=== PATIENT | female | born 1975 | race Caucasian/White ===

== ENCOUNTER 2020-11-15 12:39 | Emergency (ER) | payer BC, SELFPAY ==
[2020-11-15 12:39] VITALS: BP 130/69; PULSE 72; RESP 15; TEMP 35.6; BMI 32.8
--- NOTE | 2020-11-15 12:42 | RAD_ITS ---
STUDY: X-RAY - RIGHT HAND, ATTENTION SECOND FINGER REASON FOR EXAM: Female, 45 years old. trauma -- attn: index finger TECHNIQUE: 2 view(s) of the finger were obtained. COMPARISON: None. FINDINGS: Normal metacarpal head. Normal metacarpophalangeal joint. Normal proximal phalanx. Normal middle phalanx. Normal distal phalanx. Normal proximal interphalangeal joint. Normal distal interphalangeal joint. RAD/Finger(s) Min 2 Views IMPRESSION: Normal x-ray examination of the finger. Electronically Signed: Gordy Wiley MD at 13:25 EDT Tel , Service support ,
--- NOTE | 2020-11-15 13:16 | EX.ED.UPPERE ---
HPI History of Present Illness Chief Complaint: Laceration Informant: patient Occured/Mechanism Mechanism/Context: Yes blunt trauma Comment: Accidentally caught by edge of car door as it was closing, sustained a laceration to right index finger Onset/Context/Timing Onset: Today Context: Sudden Onset Timing: Continuous Quality of Pain: - (Sore) Location: Right index finger Current Severity: Mild Maximum Severity: Moderate Worsened by: Moving, palpation Relieved by: Remaining still Associated Symptoms Associated Symptoms: Negative for Parasthesia, Weakness and Loss of Funtion Narrative Narrative: [id number]. Laceration to right index finger and pain to the finger. Tetanus Immunization: >10 years PFSH PFSH no medical history Home Medications oxycodone-acetaminophen 1 - 2 tab PO Q4H PRN PRN #20 tab 10/16/15 [Rx Last Taken Unknown] Allergy/AdvReac Type Severity Reaction Status Date / Time Penicillins Allergy Swelling Verified 10/16/15 21:03 Social History Smoking Status: Never smoker ROS ROS ED Constitutional Constitutional ED: Denies chills or fever(s) Musculoskeletal Musculoskeletal: Reports extremity pain; Denies neck pain Integumentary Reports as per HPI and laceration; Denies Abrasions or rash Neurologic Neurologic: Denies paresthesias or weakness EXAM Physical Exam Const Vital Signs: 11/15/20 12:39 Temperature 96.0 F L Temperature Source Temporal Pulse Rate 72 Respiratory Rate 15 Blood Pressure 130/69 H Blood Pressure Mean 89 Positive well nourished and well developed General Appearance ED: well developed and NAD Neck full ROM and supple Back/Spine normal ROM and normal to inspection Extremity Extremity Narrative: Laceration to the volar aspect of the distal right index finger. FDS, FDP intact, limited range of motion at the DIPJ due to pain. Tender there and the distal phalanx. The subungual hematoma/nail injury. No other injuries. Neuro oriented x3, no focal motor deficits and no sensory deficits noted Sensorium / Orientation: alert Psych mental status grossly normal and thought process normal Skin Skin Narrative: Subcutaneous laceration 2 cm curvilinear volar right index finger that is more to the radial aspect. Clean without contamination or active bleeding. Rashes: no rashes MDM MDM MDM Narrative Medical decision making narrative: On my interpretation x-rays of the right hand are negative for any acute fracture or radiopaque foreign body. 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 She was amenable to that. This was done and she was given appropriate discharge instructions regarding bandaging and follow-up. Of note, the patient is due for a tetanus update. This is not a high risk tetanus wound, but she opted to not get the update today although she understands she needs it since it has been 10-20 years. She will follow-up with her doctor regarding this. Procedures Lacerations Right index finger: Length: 2 cm Depth: Sub Q Shape: Linear (Curvilinear) Prep: Sterile Conditions and Chlorhexadine Laceration repair: Lidocaine (1% plain after topical let), Local (1.5 cc) and Skin sutures Number of Sutures/Kimberlyn: 4 Suture Information: Ethilon, Simple and 5-0 Discharge Plan Triage Chief Complaint: Laceration ED Provider: Barry Guillen Dx/Rx/DC Orders Clinical Impression: Laceration of right index finger Instructions: ED Laceration, Hand: All Closures Prescriptions: No Action oxycodone-acetaminophen 1 TABLET tablet 1 - 2 tab PO Q4H PRN PRN (Reason: Pain) Qty: 20 RF: 0 Primary Care Provider: Rayo Caceres Referrals: Rayo Caceres MD [Primary Care Provider] - 7 Days for suture removal (Or ER/urgent care, 7-10 days for wound reevaluation and suture removal) Disposition Disposition: Home, self care
[2020-11-15] MEDS: Lidocaine/Epi/Tetracaine 50 ML 1 APPLIC TOPICAL (13:26)
[2020-11-15 14:50] VITALS: PULSE 89; RESP 18; O2SAT 97
[2020-11-15] MEDS: Lidocaine 1% (20 ml mdv) 20 ML Vial INFILT (14:50)
--- NOTE | 2020-11-15 14:52 | ED.RN ---
THIS NURSE REVIEWED D/C INSTRUCTIONS WITH PT. PT VERBALIZED UNDERSTANDING OF INSTRUCTIONS. PT DENIES FURTHER NEEDS OR QUESTIONS AT THIS TIME. PT AMBULATES FROM ROOM ON OWN WITHOUT ASSISTANCE FROM STAFF
== END 2020-11-15 14:52 | disposition home or self-care (01) ==
PROVIDERS: Emergency Provider Emergency Medicine; PCP Family Medicine
DX: S61.210A Laceration without foreign body of right index finger without damage to nail, initial encounter (principal); X58.XXXA Exposure to other specified factors, initial encounter
CPT/HCPCS: 12001; 73140; 99283

== ENCOUNTER 2021-06-14 21:26 | Emergency (ER) | payer BC, SELFPAY ==
[2021-06-14 21:26] VITALS: BP 157/103; PULSE 102; RESP 18; TEMP 36.6; O2SAT 100; BMI 34.4
--- NOTE | 2021-06-14 21:30 | EKG12_ITS ---
Test Reason : CP Blood Pressure : / mmHG Vent. Rate : 076 BPM Atrial Rate : 076 BPM P-R Int : 138 ms QRS Dur : 090 ms QT Int : 378 ms P-R-T Axes : 041 021 045 degrees QTc Int : 425 ms Normal sinus rhythm Normal ECG Confirmed by SUZANNE NAVAS, SEPIDEH ([id number]), graphic editor JHOANA GHOSH ([id number]) on 06/15/2021 11:29:17 AM Referred By: VISHAL HARRINGTON Confirmed By:SEPIDEH PALACIOS MD
[2021-06-14 21:56] LABS: Absolute Lymphocyte Count 3.79 X10^3/uL (0.83-4.51); Absolute Neutrophil Count 5.1 X10^3/uL (2.0-7.7); Basophil# 0.05 X10^3/uL; Basophil% 0.5 % (0-1); Eosinophil# 0.16 X10^3/uL; Eosinophils% 1.6 % (0-5); Hematocrit 40.9 % (37-47); Hemoglobin 13.8 g/dL (12.0-15.0); Lymphocyte # 3.79 X10^3/ul (0.83-4.51); Lymphocyte % 38.5 % (19-41); Mean Corp Hgb Conc 33.7 g/dL (32-36); Mean Corpuscular Hgb 29.8 pg (27.0-32.0); Mean Corpuscular Volume 88.3 fL (81-99); Monocyte# 0.75 X10^3/uL; Monocyte% 7.6 % (0-10); NRBC Flagged by Analyzer 0 % (0-5); Neutrophil # 5.07 X10^3/uL (2.7-7.7); Neutrophil % 51.6 % (47-70); Platelet Count 328 K/mm3 (150-450); RBC Distribution Width CV 11.9 % (11.6-14.6); RBC Distribution Width SD 38.2 fl (35.1-43.9); Red Blood Count 4.63 M/mm3 (4.2-5.4); White Blood Count 9.8 K/mm3 (4.4-11.0)
[2021-06-14 22:16] LABS: Anion Gap 6 (5-15); BUN 12 mg/dL (7-18); BUN/Creat Ratio 15.5 RATIO (10-20); Calcium,Total 9.1 mg/dL (8.5-10.1); Chloride 106 mmol/L (98-107); Creatinine, Serum 0.77 mg/dL (0.55-1.02); EST Glomerular Filtration Rate 85 mL/min (>60); Est Glom Filt Rate - Afr Amer 103 mL/min (>60); Estimated Creatinine Clearance 88.78 ml/min; Glucose 99 mg/dL (74-106); Potassium 4.1 mmol/L (3.5-5.1); Sodium Level 139 mmol/L (136-145); Troponin-I HS 5 pg/mL (3.0-54.0)
--- NOTE | 2021-06-14 22:40 | CT_ITS ---
STUDY: CTA CHEST REASON FOR EXAM: Female, 45 years old. Chest pain. Lump in left arm. An breast for 6 months. Burning chest pain with radiation left arm and shoulder for 2 days. RADIATION DOSAGE (If Supplied By Facility): CTDIvol = ( 13.61 ) mGy, DLP = ( 564.45 ) mGycm TECHNIQUE: The examination was performed with the intravenous administration of IV 100mL Isovue-370. Post-processing of the angiographic images was performed, with multiplanar reformation and 3D reconstruction. Individualized dose optimization techniques were used for this CT. COMPARISON: None. FINDINGS: Normal enhancement of the main pulmonary artery and right and left pulmonary arteries. Normal enhancement of the bilateral peripheral pulmonary arteries. There is no demonstrated pulmonary embolism. Normal thoracic aorta and visualized great vessels. There is no demonstrated aortic dissection. Normal heart and pericardium. Minimal coronary artery calcifications. There are calcified prevascular and left hilar lymphadenopathy. Normal visualized trachea and bronchi. The lungs are well expanded. Normal pulmonary parenchyma. Normal pleura. There is an enhancing left axillary lymph node measuring 2.4 x 1.7 x 1.4 cm. There is also a ill-defined 2.4 x 2.3 x 2.1 cm soft tissue mass in left breast. Smaller nodular density measuring 1 cm is seen in the upper medial right breast. Normal osseous structures. Normal visualized upper abdomen. CT/CTA Chest W/WO Contrast IMPRESSION: 1. Bilateral breast masses, left greater than right. There is associated left axillary lymphadenopathy. 2. No evidence of pulmonary embolism. 3. No aortic dissection or aneurysm. 4. No acute pulmonary disease. 5. Old granulomatous disease. Electronically Signed: Von Akhtar DO at 23:38 EST Tel [phone], Service support ,
--- NOTE | 2021-06-14 23:10 | RAD_ITS ---
STUDY: X-RAY CHEST REASON FOR EXAM: Female, 45 years old. S pain. TECHNIQUE: Single AP portable view of the chest. COMPARISON: CTA of the chest, 06/14/2020. FINDINGS: The lungs are clear and expanded. There is no demonstrated pleural abnormality. Normal size heart. Normal mediastinum and alice. Normal visualized pulmonary arteries. Normal visualized aortic arch and descending thoracic aorta. Normal visualized thoracic spine. Normal visualized ribs, clavicles, and shoulders. There is no demonstrated abnormality of the visualized soft tissue structures of the upper abdomen. RAD/Chest 1 View (Portable) IMPRESSION: No acute cardiopulmonary disease. Electronically Signed: Von Akhtar DO at 23:53 EST Tel [phone], Service support ,
[2021-06-14] MEDS: HYDROcodone Bitartrate/Apap 5/325 Tablet PO (23:53)
[2021-06-14] MEDS: 0.9% Normal Saline 1,000 ML 999 ML IV (23:53)
--- NOTE | 2021-06-15 00:10 | EDS_ITS ---
HPI History of Present Illness Chief Complaint: Chest Pain Narrative Narrative: Patient is a 45-year-old female who states that she noticed a small lump in her left breast a few months ago. She states that life has been very busy with her having thyroid cancer recently and she has not had time to have the mass evaluated. She states that over the past few weeks she has noticed that the lump is increased in size and now she is also noticed some swelling in her left armpit region. She does report a family history of breast cancer. She states that the areas become more painful as well over the past few weeks. She denies any discoloration to the skin or nipple discharge but with the worsening pain and size of the lump comes in for evaluation [facility] Medical History Axillary adenopathy Breast mass Chest wall pain Home Medications multivitamin 1 tab PO DAILY 06/14/21 [History Last Taken Unknown] hydrocodone-acetaminophen 1 tab PO Q6H PRN 3 Days #12 tab 06/15/21 [Rx Last Taken Unknown] Allergy/AdvReac Type Severity Reaction Status Date / Time Penicillins Allergy Swelling Verified 06/16/21 09:53 Family History (Updated 06/16/21 @ 10:08 by Cecelia Lance) Grandmother Breast cancer Diabetes Mother Hypertension Grandfather Diabetes Other Breast mass Surgical History History of cholecystectomy Social History (Updated 06/16/21 @ 10:09 by Cecelia Lance) Smoking Status: Never smoker alcohol intake: never ROS ROS ED Constitutional Constitutional ED: Denies chills or fever(s) ENT ENT ED: Denies sore throat Cardiovascular Cardiovascular: Reports chest pain; Denies palpitations or racing heartbeat Respiratory/Chest Respiratory/Chest: Denies cough or dyspnea Gastrointestinal Gastrointestinal: Denies abdominal pain, diarrhea, nausea or vomiting Genitourinary Genitourinary ED: Denies dysuria Musculoskeletal Musculoskeletal: Denies myalgias Integumentary Denies rash Neurologic Neurologic: Denies headache(s) Hematologic/Lymphatic Hematologic/Lymphatic: Denies easy bleeding or easy bruising EXAM Physical Exam Const Vital Signs: 06/14/21 21:26 06/14/21 23:56 Temperature 98 F Temperature Source Temporal Pulse Rate 102 H Respiratory Rate 18 Respiratory Effort Normal Respiratory Pattern Normal Blood Pressure 157/103 H Blood Pressure Mean 121 Pulse Ox 100 Oxygen Delivery Method Room Air Positive well nourished and well developed General Appearance ED: well developed HEENT Reports moist mucous membranes Eyes PERRL and EOMs intact bilaterally Neck supple Chest Wall Chest Narrative: Patient has a 2 x 3 area of firmness to the upper midportion of the left breast. There is pain on palpation at the site but no overlying warmth or discoloration. No nipple discharge noted. Resp normal respiratory effort and clear to auscultation bilaterally Cardio regular rate and regular rhythm Rate: other Other Details: Radial pulses are plus 2 out of 4 bilaterally are equal and symmetric GI normal to inspection, nondistended, normoactive bowel sounds, non-tender, non- distended and no masses Auscultation: normoactive bowel sounds Palpation: soft Extremity normal to inspection Extremity Narrative: No asymmetric edema no pitting edema negative Homans' sign bilaterally. Patient does have soft tissue swelling in the left axilla consistent with lymphadenopathy Neuro oriented x3 and CN's II-XII intact bilaterally Sensorium / Orientation: alert Motor Exam: strength 5/5 throughout Psych mental status grossly normal Skin no rashes or lesions noted MDM MDM MDM Narrative Medical decision making narrative: Patient presented to the ER with chest pain but it was not cardiac in nature it was related to the breast mass. With the lymphadenopathy on the left this is most likely cancerous in nature especially with her family history of breast cancer. Therefore elected perform a CTA of the chest to get a better evaluation of the mass as well as rule out pulmonary embolus as the cause of her symptoms. Troponin was normal as well as EKG and CT revealed no PE or lung pathology but did note the left breast mass as well as the left axillar lymphadenopathy. There is also a small right breast mass noted. Based on these findings patient will need further evaluation with mammogram and most likely ultrasound-guided biopsy. However at this time with out changes to suggest CAD or PE there is no need for admission and she can be discharged Lab Data Attestation: I reviewed the patient's lab results. Labs: Laboratory Results - last 24 hr 06/14/21 06/14/21 21:40 21:40 WBC 9.8 RBC 4.63 Hgb 13.8 Hct 40.9 MCV 88.3 MCH 29.8 MCHC 33.7 RDW Std Deviation 38.2 RDW Coeff of Sarai 11.9 Plt Count 328 MPV 9.0 Immature Gran % (Auto) 0.200 Neut % (Auto) 51.6 Lymph % (Auto) 38.5 Grady % (Auto) 7.6 Eos % (Auto) 1.6 Baso % (Auto) 0.5 Absolute Neuts (auto) 5.1 Absolute Lymphs (auto) 3.79 Nucleated RBC % 0 Sodium 139 Potassium 4.1 Chloride 106 Carbon Dioxide 27.0 Anion Gap 6 BUN 12 Creatinine 0.77 Estim Creat Clear Calc 88.78 Est GFR (MDRD) Af Amer 103 Est GFR (MDRD) Non-Af 85 BUN/Creatinine Ratio 15.5 Glucose 99 Calcium 9.1 Troponin I High Sens 5 Radiography Diagnostic Testing: Clinical Impression(s) from Imaging Studies Chest CTA 06/14/21 22:40 IMPRESSION: 1. Bilateral breast masses, left greater than right. There is associated left axillary lymphadenopathy. 2. No evidence of pulmonary embolism. 3. No aortic dissection or aneurysm. 4. No acute pulmonary disease. 5. Old granulomatous disease. Electronically Signed: Von Akhtar DO at 23:38 EST Tel [phone], Service support , Chest X-Ray 06/14/21 23:10 IMPRESSION: No acute cardiopulmonary disease. Electronically Signed: Von Akhtar DO at 23:53 EST Tel [phone], Service support , Discharge Plan Triage Chief Complaint: Chest Pain ED Provider: Lauri Boucher Dx/Rx/DC Orders Clinical Impression: Breast mass, Axillary adenopathy, Chest wall pain Instructions: ED Chest Pain, Noncardiac, ED Breast Lump, Uncertain Cause Prescriptions: New hydrocodone-acetaminophen 5-325 mg tablet 1 tab PO Q6H PRN (Reason: pain) 3 Days Qty: 12 RF: 0 No Action multivitamin Tablet 1 tab PO DAILY RF: 0 Stand Alone Forms: ED Work / School Excuse Primary Care Provider: Rayo Caceres Referrals: Rayo Caceres MD [Primary Care Provider] - Disposition Disposition: Home, Self Care Discharge Date/Time: 06/15/21 00:41
[2021-06-15 00:30] VITALS: BP 113/76; PULSE 74; RESP 14; O2SAT 98
== END 2021-06-15 00:41 | disposition home or self-care (01) ==
PROVIDERS: Emergency Provider Emergency Medicine; PCP Family Medicine; Visit Provider Emergency Medicine
DX: N63.10 Unspecified lump in the right breast, unspecified quadrant (principal); N63.20 Unspecified lump in the left breast, unspecified quadrant; R07.89 Other chest pain; Z80.3 Family history of malignant neoplasm of breast
CPT/HCPCS: 71045; 71275; 80048; 84484; 85025; 93005; 99284; J7030; A4216

== ENCOUNTER 2021-06-15 10:02 | Outpatient (CLI) | payer BC, SELFPAY ==
--- NOTE | 2021-06-15 10:10 | BI_ITS ---
MAMMOGRAPHY - BILATERAL DIAGNOSTIC REASON FOR EXAM: Female, 45 years old. Bilateral breast nodules. Left axillary pain. PERTINENT HISTORY: Grandmother with breast cancer. TECHNIQUE: Digital bilateral breast stu (3D mammographic acquisition) in the CC and MLO projections. 2-D mediolateral oblique (MLO) and craniocaudad (CC) views of both breasts were obtained. CAD: Full Field Digital Mammography with Computer Added Detection was performed. COMPARISON: None. Baseline examination. FINDINGS: Breast Composition: The breasts are heterogeneously dense, which may obscure small masses. There is a 2 cm x 2.3 cm irregular mass in the anterior upper central portion of the left breast. Biopsy is strongly recommended. There is also evidence of a 1.2 cm x 1 cm irregular nodule in the anterior subareolar region of the left breast. Biopsy recommended. No other significant abnormalities are identified. BI/DIAG MAMM W/CAD, BILAT IMPRESSION: Bilateral breast masses as described. Correlation with ultrasound is recommended. Correlation with ultrasound of the left axillary region is recommended as well. ASSESSMENT CATEGORY: BIRADS Category 0: Incomplete. Need additional imaging evaluation. A letter regarding these results will be sent to the patient by the facility within 30 days. Approximately 10% of breast cancers are not detected by mammography. A normal mammogram should not delay biopsy of a clinically suspicious abnormality. Electronically Signed: Leonard Morse MD at 11:12 EST , Service support ,
== END 2021-06-15 23:59 | disposition short-term general hospital (02) ==
PROVIDERS: PCP Family Medicine; Referring Provider Nurse Practitioner Family; Visit Provider Nurse Practitioner Women's Health
DX: N63.20 Unspecified lump in the left breast, unspecified quadrant (principal)
CPT/HCPCS: 77062; 77066; G0279

== ENCOUNTER 2021-06-16 07:49 | Outpatient (CLI) | payer BC, SELFPAY ==
--- NOTE | 2021-06-16 | IMM_PTH ---
PATIENT: SARAH RYAN LOC: PATRIC U#:[id number] AGE/SX: 45/F ROOM: RE06/16/[address]: TRUNG Estrella : 1975 BED: DIS: 06/16/2021 SPEC #: [id number] RECD: 06/17/21 14:21 STATUS: JACQUES REBetty #: [id number] DEANNE: 06/16/21 00:[address]: Jadiel Mendez DEPT: IMMUNOHISTOCHEMISTRY RECD BY: Yvonne Cline ENTERED: 06/17/21 14:24 SP TYPE: IMMUNO OTHR DR: TRUNG Coleman Tissues: A - Right breast, NOS C - Left breast, NOS D - Axillary lymph node, NOS Procedures: E-CAD (initial) CALPONIN-1 (add) CK5-6 (add) CK8 (add) ER (add) HER2 EMY (add) KI-67 (add) MAMM (add) P53 (add) IL (add) GATA3 (add) P40 (add) [facility] [address] [address] SPECIMEN INFORMATION: Tissue Source: A ? Right breast 2 o?clock, +5 cm, C ? Left breast, D ? Left axillary lymph node Clinical Info: Bilateral breast masses, left axillary lymph node enlarged Specimen Number: [id number] A, C & D CPT code: 09823 x3, 47417 x15, 59962 x6 METHODOLOGY: Deparaffinized sections of prefer/formalin-fixed tissue or PAP/DQ stained slides are incubated with monoclonal/polyclonal antibodies/oligonucleotide probes. Localization is made via biotin free immunoperoxidase method. Appropriate controls are performed and reacted as expected. Results on target cell population are indicated in the following table: RESULTS: ANTIBODY / CLONE RESULT Block A E-Cad (ECH-6) positive CK8 (93ccnlY15) positive Calponin-1 (JY671S) negative CK5-6 (D5 & 1684) negative P40 (BC28) negative P53 (DO-7) positive, a few cells (<10%) Ki-67 (30-9) positive, ~27% MORPHOMETRIC ANALYSIS ER (clone 6F11) >95%, strong intensity IL (clone 16/1E2) >95%, strong intensity Her-2Neu (clone CB11) 0 Block C E-Cad (ECH-6) positive CK8 (65alscP93) positive Calponin-1 (IG742Z) negative * CK5-6 (D5 & 1684) negative * P40 (BC28) negative * P53 (DO-7) negative Ki-67 (30-9) positive, low (<10%) *?Positive in the area of ductal carcinoma in situ. MORPHOMETRIC ANALYSIS ER (clone 6F11) >95%, moderate intensity IL (clone 16/1E2) 25%, low to moderate intensity Her-2Neu (clone CB11) 0 Block D CK8 (38xjhzT35) positive E-Cad (ECH-6) positive Mammaglobin (31A5) positive, focal GATA3 (L50-823) positive The prognostic test for HER2 is performed on formalin-fixed paraffin embedded tissue. A 3+ (positive) staining pattern is defined as intense, homogeneous, complete, circumferential membranous staining in >10% of contiguous tumor cells. A similar weak (2+) staining pattern is interpreted as equivocal. MARTINA follow-up testing is recommended for all equivocal cases. Positivity/negativity for ER/IL is reported if > or < 1% of the tumor cells are immuno- reactive, respectively. The ASCO/CAP criteria is used for scoring. Reference: Journal of Clinical Oncology, 2013; 31:4982-5920 & 2010; 16:7726-6660. Duration of fixation: 9.5 Hrs; Sample Adequate: Yes. These assays have not been validated on decalcified tissues. Results should be interpreted with caution given the likelihood of false negativity on decalcified specimens. These tests were developed and their performance characteristics determined by [facility]. They may not have been cleared or approved by the U.S. Food and Drug Administration. The FDA has determined that such clearance or approval is not necessary. The above immunohistochemical/dualISH markers are ordered and reviewed by the Pathologist. INTERPRETATION: A. Right breast 2 o?clock, +5 cm, biopsy: Invasive ductal carcinoma, nuclear grade 1. Positive for estrogen receptors (favorable prognostic indicator). Positive for progesterone receptors (favorable prognostic indicator). Negative for overexpression of [id number]. C. Left breast, biopsy: Invasive ductal carcinoma, nuclear grade 2. Ductal carcinoma in situ. Positive for estrogen receptors (favorable prognostic indicator). Positive for progesterone receptors (favorable prognostic indicator). Negative for overexpression of AIF6dwp. D. Left axillary lymph node, biopsy: Metastatic carcinoma consistent with breast primary. SJ:mikhail 06/18/2021
--- NOTE | 2021-06-16 07:51 | US_ITS ---
STUDY: ULTRASOUND BREAST - RIGHT REASON FOR EXAM: Female, 45 years old. Abnormal screening mammogram. TECHNIQUE: Axial and longitudinal images of the RIGHT breast were performed with a high resolution ultrasound transducer. # OF IMAGES: 87 COMPARISON: Comparison is made with prior mammogram dated 06/15/2021. FINDINGS: RIGHT Breast: There is a 7 mm x 7 mm x 7 mm ill-defined hypoechoic nodule with shadowing and increased blood flow at the 2 o''clock position of the breast at 5 sinuses on the nipple. A similar-appearing nodular density measuring 4 mm x 4 mm x 4 mm is also seen at the 1 o''clock position of the breast at 3 cm from nipple. Biopsy is recommended. IMPRESSION: There are 2 adjacent hypoechoic irregular solid nodules at the 1 and 2 o''clock position of the breast as described. Biopsy recommended. ASSESSMENT CATEGORY: BIRADS Category 4: Suspicious - Biopsy Should Be Considered. A letter regarding these results will be sent to the patient by the facility within 30 days. Electronically Signed: Leonard Morse MD at 13:06 EST , Service support , STUDY: ULTRASOUND BREAST - LEFT REASON FOR EXAM: Female, 45 years old. Abnormal screening mammogram. TECHNIQUE: Axial and longitudinal images of the LEFT breast were performed with a high resolution ultrasound transducer. # OF IMAGES: 87 COMPARISON: Comparison is made with prior mammogram dated 06/15/2021. FINDINGS: LEFT Breast: There is a 2.7 cm x 3.5 cm x 2.3 cm irregular hypoechoic solid mass at the 12 o''clock position of the breast at 3 cm from the nipple. Increased vascularity is seen within it. A biopsy is recommended. Is also evidence of a prominent lymph node in the left axillary region measuring 1.3 cm x 0.9 cm x 0.4 cm. US/Breast Limited Unilateral IMPRESSION: 2.7 cm x 3.5 cm x 2.3 cm irregular hypoechoic solid mass with increased blood flow at the 12 o''clock position of the breast at 3 sinuses from nipple. Prominent left axillary lymph node. Biopsy recommended. ASSESSMENT CATEGORY: BIRADS Category 5: Highly Suggestive of Malignancy - Appropriate Action Should Be Taken. A letter regarding these results will be sent to the patient by the facility within 30 days. Electronically Signed: Leonard Morse MD at 13:08 EST , Service support ,
--- NOTE | 2021-06-16 10:00 | BRBX_PTH ---
PATIENT: SARAH RYAN LOC: OPUS U#:[id number] AGE/SX: 45/F ROOM: RE06/16/[address]: TRUNG Estrella : 1975 BED: DIS: 06/16/2021 SPEC #: [id number] RECD: 06/16/21 11:30 STATUS: JACQUES VALIENTEBetty #: [id number] DEANNE: 06/16/21 10:[address]: Jadiel Mendez DEPT: SURGICAL PATHOLOGY RECD BY: Ashly Barfield ENTERED: 06/16/21 13:27 SP TYPE: BREAST BX OTHR DR: MD Cecelia Rice Dr., NP-C Tissues: A - Right breast, NOS B - Right breast, NOS C - Left breast, NOS D - Axillary lymph node, NOS Procedures: Surgery Specimen Level IV Comments: @ Ordering doctor for AYO edited from [place] to @ noelle TAI at 06/16/21 1328 @ Submitting doctor edited from [place] to @ noelle TAI at 06/16/21 1328 HEADER OPERATION: Bilateral breast biopsies and left axillary biopsy PRE-OP DIAGNOSIS: Bilateral breast masses and left axillary lymph node enlarged TISSUE SUBMITTED: A ? Right breast 2 o?clock, +5 cm, B ? Right breast 2 o?clock, +3 cm, C ? Left breast, D ? Left axillary lymph node MICROSCOPIC DIAGNOSIS A. Right breast, 2 o?clock, +5 cm, core biopsy: Invasive ductal carcinoma, nuclear grade 1 (0.5 cm in greatest length). See comment. B. Right breast, 2 o?clock, +3 cm, core biopsy: Fragments of benign breast tissue with fibrosis and focal minimal intraductal hyperplasia without atypia. Negative for malignancy. C. Left breast, core biopsy: Invasive ductal carcinoma, nuclear grade 2 (0.3 cm in greatest length). Ductal carcinoma in situ. See comment. D. Left axillary lymph node, core biopsy: Metastatic carcinoma consistent with breast primary. See comment. SJ:mikhail 06/17/2021 COMMENT A. Immunohistochemistry ([id number]) supports the above diagnosis. ER/HI/Mrq9gpq studies are being performed on sections of tumor and the results from this study will be reported separately ([id number]). C. The predominant tumor consists of ductal carcinoma in situ and comprise about 70% of the total tumor volume. Ductal carcinoma in situ shows solid pattern and nuclear grade 2. Necrosis or calcification are not seen. Immunohistochemistry ([id number]) supports the above diagnosis. ER/HI/Fuq7viz studies are being performed on sections of tumor and the results from this study will be reported separately ([id number]). D. The entire specimen shows the tumor. No lymph node tissue is identified. The tumor measures 1.2 cm in greatest length and show nuclear grade 2. Immunohistochemistry ([id number]) supports the above diagnosis. Case has been reviewed in consultation with Dr. Arthur who concurs with the above diagnosis. IDC:AM MICROSCOPIC DESCRIPTION Slides are reviewed. GROSS DESCRIPTION A - Received in fixative is one container labeled with the patient's name and designated right breast 2 o'clock +5 cm. The specimen consists of multiple elongated fragments of cannon-yellow fibroadipose tissue that in aggregate measure 1.5 x 0.3 x 0.1 cm. The entire specimen is submitted in one cassette. B - Received in fixative is one container labeled with the patient's name and designated right breast 2 o'clock +3 cm. The specimen consists of multiple elongated fragments of cannon-yellow fibroadipose tissue that in aggregate measure 1.5 x 0.3 x 0.1 cm. The entire specimen is submitted in one cassette. C - Received in fixative is one container labeled with the patient's name and designated left breast. The specimen consists of multiple elongated fragments of cannon-yellow fibroadipose tissue that in aggregate measure 1.5 x 0.7 x 0.1 cm. The entire specimen is submitted in one cassette. D - Received in fixative is one container labeled with the patient's name and designated left axilla. The specimen consists of multiple elongated fragments of cannon-yellow fibroadipose tissue that in aggregate measure 1.5 x 0.5 x 0.1 cm. The entire specimen is submitted in one cassette. / SJ:mikhail 06/16/21 TC:0 CPT: 76230 x4
== END 2021-06-16 23:59 | disposition short-term general hospital (02) ==
PROVIDERS: PCP Family Medicine; Referring Provider Nurse Practitioner Family; Visit Provider Nurse Practitioner Family
DX: C50.911 Malignant neoplasm of unspecified site of right female breast (principal); C77.3 Secondary and unspecified malignant neoplasm of axilla and upper limb lymph nodes; C50.912 Malignant neoplasm of unspecified site of left female breast
CPT/HCPCS: 76642; 88305; 88341; 88342

== ENCOUNTER 2021-06-21 13:08 | Outpatient (CLI) | payer BC, SELFPAY ==
--- NOTE | 2021-06-21 13:15 | MRI_ITS ---
STUDY: BILATERAL BREAST MR WITHOUT AND WITH CONTRAST REASON FOR EXAM: Female, 46 years old. Newly diagnosed left breast cancer. TECHNIQUE: Multi-sequence multi-echo imaging of both breasts was performed with a dedicated breast coil. T1-weighted and T2-weighted images were performed before the administration of contrast. T1-weighted images were also performed after the administration of 20 mL of Dotarem contrast without complications. COMPARISON: Bilateral diagnostic mammogram dated 06/15/2021 and bilateral breast ultrasound dated 06/16/2021. FINDINGS: RIGHT BREAST: The breast tissue is scattered fibroglandular densities with minimal background enhancement. At the 2 o''clock position of the left breast 4 cm behind the nipple and 5 cm above the nipple there are 2 irregular enhancing masses. The mass closest to the nipple measures 11 mm x 7 mm in diameter and is best seen on MR series #[id number] image 128/280. Slightly above and more medial to this lesion is another smaller lesion measuring approximately 5 mm in diameter best seen on MR series #[id number] Image 119. Tissue clip artifact is noted medial to this superior lesion. Both of these lesions correspond to the ultrasonographic findings and are highly suspicious. Small axillary lymph nodes, none of which are pathologically enlarged. LEFT BREAST: The breast tissue is scattered fibroglandular densities with minimal background enhancement. Large enhancing mass at the 12 o''clock position 4.4 cm above the nipple and 4 cm behind the nipple measuring 3.4 cm x 2.7 cm x 3.6 cm. This lesion corresponds to the mass shown on ultrasound. Enlarged lymph node in the left axillary region measuring 2.6 cm x 2.2 cm x 2.3 cm, highly suspicious for tumor involvement. There is no abnormality in the visualized regions of the chest or liver. MRI/Breast Bilateral W/O and W IMPRESSION: 2 enhancing lesions in the right breast and large enhancing lesion in the left breast corresponding to the ultrasonographic findings. Enlarged left axillary lymph node which is highly suspicious for tumor involvement. CATEGORY: BIRADS Category 6: Known Biopsy-Proven Malignancy - Appropriate Action Should Be Taken. A letter regarding these results will be sent to the patient by the facility within 30 days. Electronically Signed: Diony Alves MD at 9:41 EST , Service support ,
== END 2021-06-21 23:59 | disposition short-term general hospital (02) ==
LOC: MRI 13:15
PROVIDERS: PCP Family Medicine; Referring Provider Surgery; Visit Provider Surgery
DX: C50.911 Malignant neoplasm of unspecified site of right female breast (principal); C50.912 Malignant neoplasm of unspecified site of left female breast
CPT/HCPCS: 77049; A9575; A4216; C8908

== ENCOUNTER 2021-07-07 07:33 | Day surgery (SDC) | payer BC, SELFPAY ==
[2021-07-07] VITALS (7 sets, daily range): BP systolic 94–133; BP diastolic 57–81; PULSE 63–90; RESP 16; TEMP 36–37.2; O2SAT 93–99; BMI 35.9
[2021-07-07 08:06] LABS: Internal QC Validated? YES +Cl - CLEAR BKGD; Pregnancy, Urine Negative Negative
[2021-07-07] MEDS: Lactated Ringers 1,000 ML 15 ML IV (08:13)
--- NOTE | 2021-07-07 08:47 | HP.PCM.SX_ITS ---
HPI - General HPI Narrative SARAH RYAN, is a 46 F who presents for right chest port. Patient was diagnosed with bilateral breast cancer with presence of cancer in the left axillary lymph nodes. Patient was sent here for port placement for neoadjuvant chemotherapy. [facility] Medical History (Updated 07/07/21 @ 08:[address] Jadiel Mendez MD) Axillary adenopathy Bilateral breast cancer Breast mass Cancer Chest wall pain Leg cramps Non-smoker Restless legs Wears contact lenses Home Medications multivitamin 1 tab PO DAILY 06/14/21 [History Last Taken Unknown] Allergy/AdvReac Type Severity Reaction Status Date / Time Penicillins Allergy Swelling Verified 07/07/21 07:58 Family History (Updated 06/16/21 @ 10:08 by Cecelia Lance) Grandmother Breast cancer Diabetes Mother Hypertension Grandfather Diabetes Other Breast mass Surgical History (Updated 07/05/21 @ 15:14 by Lillian Joy) History of cholecystectomy Hx of tonsillectomy Hx of wisdom tooth extraction Social History (Updated 06/16/21 @ 10:09 by Cecelia Lance) Smoking Status: Never smoker alcohol intake: never Vital Signs Vital Signs Vital Signs: 07/07/21 08:07 Temperature 98.9 F Temperature Source Temporal Pulse Rate 71 Respiratory Rate 16 Respiratory Pattern Normal Blood Pressure 133/81 H Blood Pressure Mean 98 Blood Pressure Source Monitor Blood Pressure Position Semi-Fowlers Blood Pressure Location Left Arm Pulse Ox 99 Oxygen Delivery Method Room Air Weight Weight: 229 lb 4.492 oz Body Mass Index (BMI) 35.9 Physical Exam Const alert and oriented x3 Resp normal respiratory effort and normal air movement Cardio regular rate and regular rhythm GI soft to palpation, non-tender and non-distended Results Lab / Micro Data Labs: Laboratory Results - last 24 hr 07/07/21 07:54: Urine Test Negative Assessment & Plan Assessment/Plan (1) Encounter for insertion of venous access port: PLAN: I discussed right chest port placement with the patient in detail. I discussed the risks including not limited to bleeding, infection, injury to underlying organs, pneumothorax or line infection. Patient understands the risks and is willing to proceed with right chest port placement. Jadiel Mendez MD Pager: [facility] [address] [place] [address] Outpatient [place], [address] [place] [phone] Office:
[2021-07-07] MEDS: Lidocaine 1% (30 ml sdv) 30 ML Vial (09:30)
[2021-07-07] MEDS: Bupivacaine Mpf 0.5% 30 ML VIAL (09:30)
--- NOTE | 2021-07-07 09:54 | RAD_ITS ---
STUDY: X-RAY CHEST REASON FOR EXAM: Female, 46 years old. S/P PORT PLACEMENT -- STAT WET READ TECHNIQUE: Single AP portable view of the chest. COMPARISON: Comparison is made with prior study dated 06/14/2021. FINDINGS: A right sided dai catheter has been placed. The tip is at the junction of the superior vena cava and right atrium. There is hyperinflation of the lungs consistent with chronic obstructive lung disease (COPD). There is no demonstrated pleural abnormality. Normal size heart. Normal mediastinum and alice. Normal visualized pulmonary arteries. Normal visualized aortic arch and descending thoracic aorta. Normal visualized thoracic spine. Normal visualized ribs, clavicles, and shoulders. There is no demonstrated abnormality of the visualized soft tissue structures of the upper abdomen. RAD/CXR for Line Placement IMPRESSION: The tip of the right-sided portacatheter is at the junction of the superior vena cava and right atrium. Hyperinflation. Electronically Signed: Leonard Morse MD at 10:43 EST ,
--- NOTE | 2021-07-07 10:10 | PCM.OPRPT ---
Problems Associated Problem List Diagnoses (1) Encounter for insertion of venous access port: Report of Operation Date of Procedure: 07/07/21 Pre-Operative Diagnosis: Breast cancer need for vascular access for chemotherapy Post-Operative Diagnosis: Same Surgery/Procedure Performed:: Ultrasound and fluoroscopy guided right chest port placement utilizing right IJ Description of Procedure: After obtaining informed consent patient was brought back to the operating room MAC anesthesia was induced and the right chest and neck were prepped in normal sterile fashion. Ultrasound was used to evaluate both IJs and the right IJ was selected. Next, using a needle, the right IJ was accessed and a guidewire was passed on into the superior vena cava under fluoroscopy guidance. A small incision was made over the puncture site and the dilator introducer was placed over the guidewire. Next this was capped and the pocket was made for the port. 1% lidocaine with epinephrine was injected in the proposed port site. An incision was made with scalpel. Electrocautery was used to make a pocket under the skin and subcutaneous tissue. Hemostasis was obtained. Next, the catheter was tunneled up to the neck incision site and placed through the introducer. The peel-away introducer was removed and the position of the catheter was confirmed on fluoroscopy. Next, the catheter was trimmed and attached to the port with the locking device. Interrupted 2-0 Vicryl sutures were used to anchor the port to the chest wall and then the port was placed inside the pocket. The pocket was then flushed with saline and the port irrigated with saline. There was good blood return and the port flushed easily. Next, heparin was injected into the port. The skin was closed with subcutaneous interrupted 3-0 Vicryl sutures. A single 3-0 Vicryl sutures placed under the skin at the neck incision site. Steri-Strips were placed as well as op sites. Patient tolerated procedure well, was taken to PACU in stable condition. Chest x-ray will be obtained. Grafts/Implants Used: 8 Spanish PowerPort Admit VTE Documentation VTE Mechan Device Prophylaxis: SCD's
--- NOTE | 2021-07-07 10:11 | EX.PCM.DISCH ---
Discharge Instructions Procedure Port-A-Cath Diet Discharge Diet: Light diet - advance as tolerated (Pain medication may cause nausea. You should typically eat light foods as you take your pain medication.) Activity Discharge Activity: Return to Normal Activity and May Shower (with your bandage in place in 1-2 days after surgery. DO NOT SHOWER WHEN YOUR PORT IS ACCESSED.) Additional Activity Instructions:: Ibuprofen and Tylenol for pain Dressing / Incision Call your doctor if your incision/area has: Continuous Slow Oozing, Sudden Increased Bleeding, Increased Pain/ Swelling, Increased Redness and Foul Smelling Discharge Call your doctor if you observe: Fever of 101 or Higher Remove Dressing in: 2 days Cleanse incision/area with: Soap & Water Additional Dressing/Incision Instructions:: Remove dressing in 2 days, remove Steri-Strips in 7 to 10 days Follow Up Care Please Follow Up With: Jadiel Mendez MD When: as needed [phone] Test Results: Test results from this visit will be discussed in further detail at your follow-up appointment, if applicable. Discharge Plan Admission Attending Provider: Jadiel Mendez Primary Care Provider: Rayo Caceres Discharge Orders/Prescriptions Prescriptions: No Action multivitamin Tablet 1 tab PO DAILY RF: 0 Referrals / Follow Up: Rayo Caceres MD [Primary Care Provider] - Disposition Disposition (needs filled in before D/C Order can be placed): Home, Self Care
== END 2021-07-07 23:59 | disposition home or self-care (01) ==
LOC: SDC 07:38 → AC 07:41
PROVIDERS: Anesthesiology; PCP Family Medicine; Referring Provider Surgery; Visit Provider Surgery
PROC: (CPT 36561; principal; 2021-07-07 09:00)
DX: Z45.2 Encounter for adjustment and management of vascular access device (principal); C77.3 Secondary and unspecified malignant neoplasm of axilla and upper limb lymph nodes; C50.912 Malignant neoplasm of unspecified site of left female breast; C50.911 Malignant neoplasm of unspecified site of right female breast
CPT/HCPCS: 36561; 71045; 77001; 81025; J7120; C1788; J2405

== ENCOUNTER 2022-02-16 13:32 | Emergency (ER) | payer BC, SELFPAY ==
[2022-02-16 13:33] VITALS: BP 140/74; PULSE 106; RESP 20; TEMP 36.3; O2SAT 99; BMI 37.3
[2022-02-16 13:48] VITALS: O2SAT 98
[2022-02-16 13:51] VITALS: BP 114/61; PULSE 95; RESP 16; O2SAT 99
--- NOTE | 2022-02-16 14:27 | CT_ITS ---
STUDY: CTA CHEST REASON FOR EXAM: Female, 46 years old. PE. BREAST CA WITH BILATERAL MASTECTOMY RADIATION DOSAGE (If Supplied By Facility): CTDIvol = ( 11.06 ) mGy, DLP = ( 495.46 ) mGycm TECHNIQUE: The examination was performed with the intravenous administration of IV 100mL Isovue-370. Post-processing of the angiographic images was performed, with multiplanar reformation and 3D reconstruction. Individualized dose optimization techniques were used for this CT. COMPARISON: Comparison is made with prior study 06/14/2021. FINDINGS: Surgical clips are seen in the left axillary region. The patient is status post bilateral mastectomy as compared to the prior study. Normal enhancement of the main pulmonary artery and right and left pulmonary arteries. Normal enhancement of the bilateral peripheral pulmonary arteries. There is no demonstrated pulmonary embolism. Normal thoracic aorta and visualized great vessels. There is no demonstrated aortic dissection. Normal heart and pericardium. Normal mediastinum. Normal hilar regions. Normal visualized trachea and bronchi. The lungs are well expanded. Normal pulmonary parenchyma. Normal pleura. Normal chest wall structures. Normal osseous structures. Normal visualized upper abdomen. CT/CTA Chest W/WO Contrast IMPRESSION: No evidence of pulmonary embolism. Status post bilateral mastectomy. Electronically Signed: Leonard Morse MD at 15:09 EDT ,
--- NOTE | 2022-02-16 14:27 | EKG12_ITS ---
Test Reason : SOB Blood Pressure : / mmHG Vent. Rate : 088 BPM Atrial Rate : 088 BPM P-R Int : 116 ms QRS Dur : 086 ms QT Int : 350 ms P-R-T Axes : 018 -15 048 degrees QTc Int : 423 ms Normal sinus rhythm Normal ECG Confirmed by JOEY NAVAS, GOVIND ([id number]), food editor BRIAN ANNA ([id number]) on 02/18/2022 11:50:29 AM Referred By: SHABBIR Confirmed By:BARBARA COOK MD
--- NOTE | 2022-02-16 14:28 | ED.VIS.DYS ---
HPI History of Present Illness Chief Complaint: Shortness of Breath Informant: patient Narrative Narrative: Patient presents for evaluation of nighttime dyspnea with positive outpatient D-dimer. This is a patient who has been healthy her whole life. She was diagnosed with breast cancer little over 6 months ago. She had about 6 months of chemotherapy. That was last in November. She then had a bilateral mastectomy 26 January up at [facility]. She has been healing well from that. Drains were out in 9 days. No complaints of the wound. But she has been noticing for the last couple weeks or so that she will get short of breath at night. She will wake up sometimes panting and breathing deeply. She will then have to catch her breath. She can then go back to sleep. She does not have any dyspnea on exertion or problems during the day. Although she carries some weight, she has never been diagnosed with sleep apnea but it does run in her family. No hemoptysis or coughing. PFSH PFS Medical History Axillary adenopathy Bilateral breast cancer Breast mass Cancer Chest wall pain Leg cramps Non-smoker Restless legs Wears contact lenses Home Medications multivitamin 1 tab PO DAILY 06/14/21 [History Last Taken Unknown] biotin 1 mg capsule 1 mg PO DAILY 02/16/22 [History Last Taken Unknown] calcium phosphate,dibasic 77 mg-vitamin D3 400 unit tablet 1 tab PO DAILY 02/16/22 [History Last Taken Unknown] Allergy/AdvReac Type Severity Reaction Status Date / Time paclitaxel [From Taxol] Allergy Anaphylaxis Verified 02/16/22 13:46 Penicillins Allergy Swelling Verified 02/16/22 13:46 Family History Grandmother Breast cancer Diabetes Mother Hypertension Grandfather Diabetes Other Breast mass Surgical History History of cholecystectomy Hx of tonsillectomy Hx of wisdom tooth extraction Social History Smoking Status: Never smoker alcohol intake: never ROS ROS ED Constitutional Constitutional ED: Denies chills or fever(s) ENT ENT ED: Denies rhinorrhea or sore throat Cardiovascular Cardiovascular: Reports paroxysmal nocturnal dyspnea; Denies chest pain, orthopnea, palpitations or racing heartbeat Respiratory/Chest Respiratory/Chest: Reports dyspnea and paroxysmal nocturnal dyspnea; Denies cough, dyspnea on exertion, orthopnea or sputum Gastrointestinal Gastrointestinal: Denies abdominal pain, nausea or vomiting Genitourinary Genitourinary ED: Denies hematuria Musculoskeletal Musculoskeletal: Denies arthralgias or myalgias Integumentary Denies rash Neurologic Neurologic: Denies paresthesias or weakness Psychiatric Psychiatric: Denies anxiety or depression Endocrine Endocrinology: Denies polydipsia or polyuria Hematologic/Lymphatic Hematologic/Lymphatic: Denies easy bleeding or easy bruising Allergic/Immunologic Allergic/Immunologic ED: Denies urticaria EXAM Physical Exam Const Vital Signs: 02/16/22 13:33 02/16/22 13:48 02/16/22 13:51 Temperature 97.4 F L Temperature Source Temporal Pulse Rate 106 H 95 Respiratory Rate 20 H 16 Respiratory Effort Normal Non-Labored Respiratory Depth Normal Respiratory Pattern Normal Blood Pressure 140/74 H 114/61 Blood Pressure Mean 96 78 Pulse Ox 99 99 Oxygen Delivery Method Room Air Room Air Room Air Positive well nourished and well developed General Appearance ED: well developed HEENT Reports moist mucous membranes Eyes General Eye ED: Negative for scleral icterus Neck no lymphadenopathy and no JVD Chest Wall Chest Narrative: Incisions across the entire chest and into both axilla does appear to be healing quite well. There is no notable erythema or swelling. No tenderness. There is no open or draining areas. Resp normal respiratory effort and clear to auscultation bilaterally Resp Narrative: Saturations are normal and there is no pain with a deep breath. Auscultation: Negative for rales, rhonchi or wheezes Cardio regular rate, regular rhythm and no murmurs Cardio Narrative: Rate is currently about 90-95 on the monitor. GI non-tender and non-distended Palpation: soft Back/Spine no CVA tenderness Extremity normal to inspection Extremity Narrative: No cords or asymmetry. General Extremety ED: Negative for edema or tenderness General Extremity: Negative for edema Neuro Sensorium / Orientation: alert Psych mental status grossly normal MDM MDM MDM Narrative Medical decision making narrative: Blood work shows normal CBC. Electrolytes are overall normal other than minimal elevation of chloride. Troponin is negative. CT shows no sign of pulmonary embolus. There were no masses Patient was thinking that her symptoms are likely sleep apnea. She states they are not every night but they occasionally occur. She thinks this is probably also related to healing. I think the rest of this can be worked up as an outpatient. We discussed reasons to return. Patient is comfortable going home and questions are answered. Lab Data Attestation: I reviewed the patient's lab results. Labs: Laboratory Results - last 24 hr 02/16/22 02/16/22 14:36 14:36 WBC 7.2 RBC 4.40 Hgb 12.7 Hct 38.3 MCV 87.0 MCH 28.9 MCHC 33.2 RDW Std Deviation 40.5 RDW Coeff of Sarai 12.6 Plt Count 338 MPV 9.0 Immature Gran % (Auto) 1.000 H Neut % (Auto) 51.4 Lymph % (Auto) 25.3 [place] % (Auto) 8.8 Eos % (Auto) 12.8 H Baso % (Auto) 0.7 Absolute Neuts (auto) 3.7 Absolute Lymphs (auto) 1.82 Nucleated RBC % 0 Sodium 142 Potassium 4.1 Chloride 108 H Carbon Dioxide 28.0 Anion Gap 6 BUN 17 Creatinine 0.80 Estim Creat Clear Calc 84.54 Est GFR (MDRD) Af Amer 99 Est GFR (MDRD) Non-Af 82 BUN/Creatinine Ratio 21.4 H Glucose 104 Calcium 9.6 Troponin I High Sens 10 Radiography Diagnostic Testing: Clinical Impression(s) from Imaging Studies Chest CTA 02/16/22 14:27 IMPRESSION: No evidence of pulmonary embolism. Status post bilateral mastectomy. Electronically Signed: Leonard Morse MD at 15:09 EDT , Discharge Plan Triage Chief Complaint: Shortness of Breath ED Provider: Ernesto Hudson Dx/Rx/DC Orders Clinical Impression: Dyspnea, Bilateral breast cancer Instructions: ED Dyspnea, ED Sleep Apnea, Obstructive Prescriptions: No Action multivitamin Tablet 1 tab PO DAILY Vitamin D (with calcium) 77-400 mg-unit Tablet 1 tab PO DAILY biotin 1 mg Capsule 1 mg PO DAILY Primary Care Provider: Rayo Caceres Referrals: Rayo Caceres MD [Primary Care Provider] - As soon as possible Disposition Disposition: Home, Self Care
[2022-02-16 14:42] LABS: Absolute Lymphocyte Count 1.82 X10^3/uL (0.83-4.51); Absolute Neutrophil Count 3.7 X10^3/uL (2.0-7.7); Basophil# 0.05 X10^3/uL; Basophil% 0.7 % (0-1); Eosinophil# 0.92 X10^3/uL; Eosinophils% 12.8 % (0-5); Hematocrit 38.3 % (37-47); Hemoglobin 12.7 g/dL (12.0-15.0); Lymphocyte # 1.82 X10^3/ul (0.83-4.51); Lymphocyte % 25.3 % (19-41); Mean Corp Hgb Conc 33.2 g/dL (32-36); Mean Corpuscular Hgb 28.9 pg (27.0-32.0); Monocyte# 0.63 X10^3/uL; Monocyte% 8.8 % (0-10); NRBC Flagged by Analyzer 0 % (0-5); Neutrophil % 51.4 % (47-70); Platelet Count 338 K/mm3 (150-450); RBC Distribution Width CV 12.6 % (11.6-14.6); RBC Distribution Width SD 40.5 fl (35.1-43.9); White Blood Count 7.2 K/mm3 (4.4-11.0)
[2022-02-16 15:11] LABS: Anion Gap 6 (5-15); BUN 17 mg/dL (7-18); BUN/Creat Ratio 21.4 RATIO (10-20); Calcium,Total 9.6 mg/dL (8.5-10.1); Chloride 108 mmol/L (98-107); EST Glomerular Filtration Rate 82 mL/min (>60); Est Glom Filt Rate - Afr Amer 99 mL/min (>60); Estimated Creatinine Clearance 84.54 ml/min; Glucose 104 mg/dL (74-106); Potassium 4.1 mmol/L (3.5-5.1); Sodium Level 142 mmol/L (136-145); Troponin-I HS 10 pg/mL (3.0-54.0)
[2022-02-16 15:41] VITALS: BP 109/74; PULSE 95; RESP 16; O2SAT 99
== END 2022-02-16 15:41 | disposition home or self-care (01) ==
PROVIDERS: Emergency Provider Emergency Medicine; PCP Family Medicine; Visit Provider Emergency Medicine
DX: R06.00 Dyspnea, unspecified (principal); C50.912 Malignant neoplasm of unspecified site of left female breast; C50.911 Malignant neoplasm of unspecified site of right female breast; Z80.3 Family history of malignant neoplasm of breast
CPT/HCPCS: 71275; 80048; 84484; 85025; 93005; 99285; J7040; Q9967; A4216

== ENCOUNTER → 2022-02-16 | Outpatient (CLI) | payer BC, SELFPAY ==
[2022-02-16 12:20] LABS: BNP,B-Type NATRIURETIC PEPTIDE 25.9 pg/mL (0-100)
[2022-02-16 12:47] LABS: D-Dimer Quantitative (DVT/PE) 0.92 FEU/ug/m (0.27-0.49)
== END | disposition home or self-care (01) ==
LOC: LABSPEC 11:56
PROVIDERS: PCP Family Medicine; Visit Provider Internal Medicine Hematology & Oncology
DX: C50.811 Malignant neoplasm of overlapping sites of right female breast (principal); C50.812 Malignant neoplasm of overlapping sites of left female breast; R91.8 Other nonspecific abnormal finding of lung field; R06.00 Dyspnea, unspecified; R06.89 Other abnormalities of breathing; Z17.0 Estrogen receptor positive status [ER+]
CPT/HCPCS: 83880; 85379

== ENCOUNTER 2022-05-20 05:50 | Day surgery (SDC) | payer BC, SELFPAY ==
[2022-05-17 10:17] LABS: Absolute Lymphocyte Count 1.04 X10^3/uL (0.83-4.51); Absolute Neutrophil Count 3.8 X10^3/uL (2.0-7.7); Basophil# 0.03 X10^3/uL; Basophil% 0.5 % (0-1); Eosinophil# 0.39 X10^3/uL; Eosinophils% 6.5 % (0-5); Hematocrit 38.9 % (37-47); Lymphocyte # 1.04 X10^3/ul (0.83-4.51); Lymphocyte % 17.4 % (19-41); Mean Corp Hgb Conc 33.4 g/dL (32-36); Mean Corpuscular Hgb 29.3 pg (27.0-32.0); Mean Corpuscular Volume 87.6 fL (81-99); Mean Platelet Vol. 8.9 fl (6.2-12.0); Monocyte# 0.66 X10^3/uL; Monocyte% 11.1 % (0-10); NRBC Flagged by Analyzer 0 % (0-5); Neutrophil # 3.82 X10^3/uL (2.7-7.7); Neutrophil % 64.2 % (47-70); Platelet Count 316 K/mm3 (150-450); RBC Distribution Width CV 12.2 % (11.6-14.6); RBC Distribution Width SD 39.4 fl (35.1-43.9); Red Blood Count 4.44 M/mm3 (4.2-5.4)
[2022-05-20] VITALS (9 sets, daily range): BP systolic 102–120; BP diastolic 60–76; PULSE 68–99; RESP 16–18; TEMP 36.2–36.7; O2SAT 97–100; BMI 39.3
[2022-05-20] MEDS: Enoxaparin 40 MG/0.4 ML Syringe SC (06:34)
[2022-05-20 06:45] LABS: Internal QC Validated? YES +Cl - CLEAR BKGD; Pregnancy, Urine Negative Negative
[2022-05-20] MEDS: Lactated Ringers 1,000 ML 125 ML IV (06:47)
--- NOTE | 2022-05-20 06:55 | HP.PCM_ITS ---
History and Physical Intake Vital Signs ? 02/16/2213:33 04/08/2215:26 04/08/2215:29 Height 5 ft 7 in 5 ft 7 in 5 ft 7 in Weight: 238 lb 1.588 oz 243 lb ? BMI 37.3 38.0 ? BP 140/74 H 124/82 H ? Respiration 20 H ? ? Pulse 106 H ? ? Temp 97.4 F L ? ? Pulse Oximetry (%) 99 ? ? Intake Visit Reasons:?surgical consult (oophrectomy) Chief Complaint: surgical consult (oophrectomy) Spine Specialist Required: No Is patient in pain?: No Allergies paclitaxel [From Taxol] Allergy (Verified 02/16/22 13:46) AnaphylaxisPenicillins Allergy (Verified 02/16/22 13:46) Swelling Medications multivitamin 1 tab PO DAILY 06/14/21 [History Confirmed 04/08/22] biotin 1 mg capsule 1 mg PO DAILY 02/16/22 [History Confirmed 04/08/22] calcium phosphate,dibasic 77 mg-vitamin D3 400 unit tablet 1 tab PO DAILY 02/16/22 [History Confirmed 04/08/22] Is last menstrual period known: No Post menopausal: No Patient : No : No PFSH Medical History?(Updated 04/11/22 @ 23:[address] Harmony Agosto MD) Axillary adenopathy Bilateral breast cancer Breast mass Cancer Chest wall pain Leg cramps Non-smoker Restless legs Wears contact lenses Surgical History?(Updated 04/08/22 @ 15:28 by Kait Torres) History of bilateral mastectomy History of cholecystectomy Hx of tonsillectomy Hx of wisdom tooth extraction Family History?(Updated 04/08/22 @ 15:28 by Kait Torres) Grandmother Breast cancer Diabetes Uterine cancer Ovarian cancerMother HypertensionGrandfather DiabetesOther Breast mass Social History?(Updated 04/08/22 @ 15:29 by Kait Torres) Smoking Status:? Never smoker alcohol intake:? never substance use type:? does not use what type of physical activity do you participate in:? none do you feel safe at home:? Yes additional social history:? - HPI surgical consult (oophrectomy) Details: SARAH RYAN is a 46 year old who presents for discussion of prophylactic oophorectomy.? she hasn't had bleeding since august.? she was given the option from her oncologist as risk reducing surgery and now she is here to discuss.? she has been on depot lupron and going through radiation.? she has had hot flashes and night sweats but they are improving and stabilizing. Female Reproductive History Menopausal Symptoms: Yes night sweats ROS Const Constitutional: Reports fatigue, night sweats and weight gain; Denies weight loss ENT ENT: Reports system reviewed and no additional complaints, except as documented Cardio Card: Denies chest pain Resp Resp: Denies cough or dyspnea GI GI: Reports as per HPI; Denies abdominal pain, constipation, nausea or vomiting : Reports vaginal dryness; Denies nipple discharge, urinary frequency, urinary incontinence, urinary hesitancy, urinary urgency, vaginal discharge, vaginal odor or vaginal pruritus Musc Musc: Denies arthralgias, back pain or muscle weakness Skin Skin/Breast: Denies alopecia, change in hair, dry skin, breast mass, breast pain, breast skin changes or nipple discharge Neuro Neuro: Reports system reviewed and no additional complaints, except as documented Psych Psych: Reports system reviewed and no additional complaints, except as documented Endo Endo: Denies cold intolerance, excessive sweating, heat intolerance or polydipsia Parrish/Lymph Hematologic/Lymphatic: Denies easy bleeding, Denies easy bruising and Denies lymphadenopathy Exam Const General: cooperative, healthy appearing, comfortable, no acute distress and well developed Orientation: alert [facility] Head: normal to inspection and normocephalic Ears: hearing grossly normal bilaterally and external ears normal Nose: external nose normal and nares normal Face and sinus: normal facial exam Neck Neck: normal visual inspection and no lymphadenopathy Thyroid: thyroid normal Chest Chest palpation & inspection: normal inspection of the chest Resp Effort & Inspection: normal respiratory effort Auscultation: clear to auscultation bilaterally Cardio Rate: regular rate Rhythm: regular rhythm Heart Sounds: S1 normal and S2 normal GI Inspection: normal to inspection and non-distended Palpation: soft and no hepatosplenomegaly Musc Other: gross motor intact no deficits, full bilateral strength Skin General: no rashes or lesions noted Neuro General: patient alert, patient awake, moves all extremities and no focal motor deficits Motor: muscle tone normal throughout Extrem General: normal to inspection and no pedal edema Psych Appearance: grossly normal Mental Status: mental status grossly normal Affect: normal affect Speech and Movement: speech and movement normal Coding Level of Care Code Off vis,est,level 4 Diagnoses Bilateral breast cancer? C50.911; C50.912 High risk factor score for venous thromboembolism (VTE)? Z91.89 Assessment and Plan Assessment and Plan (1) Bilateral breast cancer: ?Status:?Acute ?Comment: plan prophylactic oophorectomy for risk reducing.? recommended by oncology (2) High risk factor score for venous thromboembolism (VTE): ?Status:?Acute ?Comment: caprini score 5 plan lovenox 40mg preop and 7 days postop Plan After discussing the patient's diagnosis and treatment plan options, patient wishes to proceed with surgical management.? I have discussed with the patient the risks, benefits, and alternatives of the procedure which include but are not limited to risks of anesthesia, bleeding, infection, possible damage to bowel, bladder, or surrounding vasculature which could lead to additional surgery to evaluate any complications.? Patient agrees to procedure and wishes to proceed.? ACOG/uptodate references given for additional information regarding procedure.? UPDATE- I have seen the patient and performed any clinically relevant updates to the history and physical exam. Harmony Agosto MD
--- NOTE | 2022-05-20 06:56 | PCM.OPRPT ---
Problems Associated Problem List Diagnoses (1) High risk factor score for venous thromboembolism (VTE): (2) Bilateral breast cancer: Report of Operation Date of Procedure: 05/20/22 Pre-Operative Diagnosis: see problem list Post-Operative Diagnosis: same Surgery/Procedure Performed:: laparoscopic bilateral salpingoo-ophorectomy Surgeon: Harmony Agosto manufacturing systems engineer: Melonie Daugherty Type of Anesthesia: General and Local Special Medications: none Specimen's removed: tubes and ovaries Drains: none Estimated Blood Loss (mL): 50 Fluids Replaced: crystalloid Description of Procedure: Patient was taken in the operating room and was placed under general anesthesia was prepped and draped in normal sterile fashion in the dorsal lithotomy position. Bladder was drained of clear urine and SCDs were on preoperatively. Uterus was sounded and a uterine manipulator was placed after dilating. Attention was then paid to the abdominal portion of the procedure and the umbilicus was elevated with towel clamps and injected with Marcaine and after a 12 mm incision was made and the Veress needle was entered into the abdomen confirmed to be intra-abdominal with a low opening pressure of less than 5 mmHg. Abdomen was insufflated with CO2 gas and a 12 mm optical trocar was placed under direct visualization. A right and left lower quadrant 5 mm ports were placed under direct visualization. Uterus was well visualized and bilateral fallopian tubes and ovaries were identified and the bilateral infundibulopelvic ligament were transected across using the LigaSure device followed by transecting across the mesosalpinx to the attachment to the uterine corpus bilaterally the tubes and ovaries were removed without complication. Excellent hemostasis was noted. Specimens were removed through the umbilical port site through a bag without any intra-abdominal spillage of contents. The fascial incision was closed using the Calderon Obando and an 0 Vicryl. Liver and upper abdomen were visualized notably within normal limits and no other gross abnormalities were seen in the abdomen. All instruments removed from the abdomen after gas was desufflated. Port sites were closed with 3-0 Monocryl Steri's and op sites were applied. All instruments removed from the vagina and patient was awoken and taken recovery in stable condition. Grafts/Implants Used: none Complications none Admit VTE Documentation VTE Present on Admission: No VTE Mechan Device Prophylaxis: SCD's Procedures Urinary/Genital 52xxx-[id number]: [id number] Laproscopic BS/O
--- NOTE | 2022-05-20 06:57 | PCM.DC ---
Discharge Instructions Diet Discharge Diet: No restrictions Activity Discharge Activity: Return to Normal Activity, May Drive (when pain free) and May Shower May resume sexual activity in: 1 week Weight Bearing Status: Full weight bearing Lifting Restrictions: 30 lbs for 2 weeks Dressing / Incision Call your doctor if your incision/area has: Continuous Slow Oozing, Sudden Increased Bleeding, Increased Pain/ Swelling, Increased Redness and Foul Smelling Discharge Call your doctor if you observe: Fever of 101 or Higher, Using more than 1 pad per hour, Shortness of breath, Chest pain and Uncontrolled pain Suture Line Care: Avoid Pulling/Pushing and Avoid Pinching/Bending Remove Dressing in: 1 week (if present) Cleanse incision/area with: Soap & Water and Keep Dressing Clean & Dry Follow Up Care Please Follow Up With: Harmony Agosto MD When: Call to make an appointment with your doctor for a postop visit in 2 weeks Test Results: Test results from this visit will be discussed in further detail at your follow-up appointment, if applicable. Discharge Plan Admission Attending Provider: Harmony Agosto Primary Care Provider: Rayo Caceres Consulting Providers: Rayo Gonzalez Discharge Orders/Prescriptions Prescriptions: New oxycodone-acetaminophen [Percocet] 5-325 mg tablet 1 tab PO Q6H PRN (Reason: pain) 7 Days Qty: 20 0RF naproxen [naproxen] 500 mg tablet 500 mg PO BID PRN PRN (Reason: Pain) Qty: 30 1RF enoxaparin [Lovenox] 40 mg/0.4 mL syringe 40 mg SQ DAILY 7 Days Qty: 20 1RF Rx Instructions: start POD 1 take once daily for 1 week Continued letrozole 2.5 mg tablet 2.5 mg PO DAILY Rx Instructions: begin between days 2 and 5 of mentrual cycle calcium phos,dibas-vitamin D3 77-400 mg-unit Tablet 1 tab PO DAILY biotin 1 mg Capsule 1 mg PO DAILY Other Ambulatory Orders: ,Urine (Routine) Timeframe: [id number] Facility: [facility] - Location: Laboratory Ordered By: Dr. Rayo Gonzalez Referrals / Follow Up: Rayo Caceres MD [Primary Care Provider] - Disposition Disposition (needs filled in before D/C Order can be placed): Home, Self Care
--- NOTE | 2022-05-20 07:30 | OV_PTH ---
PATIENT: SARAH RYAN LOC: [facility] [place] U#:[id number] AGE/SX: 46/F ROOM: RE05/20/[address]: Dr. Harmony Agosto MD : 1975 BED: DIS: 05/20/2022 SPEC #: [id number] RECD: 05/20/22 11:52 STATUS: JACQUES REBetty #: [id number] DEANNE: 05/20/22 07:[address]: Harmony Agosto DEPT: SURGICAL PATHOLOGY RECD BY: Marissa Sutton ENTERED: 05/20/22 12:16 SP TYPE: OVARY OTHR DR: MD Dr. Rayo Mcintosh MD Tissues: Ovary, NOS Procedures: Surgery Specimen Level IV HEADER OPERATION: Laparoscopic oophorectomy, prophylactic PRE-OP DIAGNOSIS: History of breast cancer, need to suppress hormones for risk improvement TISSUE SUBMITTED: Bilateral ovaries and fallopian tubes MICROSCOPIC DIAGNOSIS Bilateral fallopian tubes and ovaries, bilateral salpingo-oophorectomy: One ovary ? simple benign epithelial cyst (0.4 cm in greatest dimension). Second ovary - no pathologic diagnosis. Bilateral fallopian tubes - no pathologic diagnosis. SJ:mikhail 05/23/2022 MICROSCOPIC DESCRIPTION Slides are reviewed. GROSS DESCRIPTION Received in fixative is one container labeled with the patient's name and designated bilateral ovaries and fallopian tubes. The specimen consists of two ovaries and fallopian tubes. The ovaries are not designated as to right or left. Both ovaries are similar in appearance with average dimensions of 3 x 2 x 1 cm. Serial sections of the ovaries do not reveal mass lesions. The adjacent fallopian tubes are similar in appearance with average lengths of 4 cm and average diameters of 0.6 cm. No tubo-ovarian adhesions are identified. U[employer]olstery [employer] sections are submitted in four cassettes as follows: 1 & 2 ? one ovary and fallopian tube, 3 & 4 ? the other ovary and fallopian tube. / AM:mikhail 05/20/2022 TC:5 CPT: 54052 x2
[2022-05-20] MEDS: Lactated Ringers 1,000 ML 75 ML IV (07:35)
[2022-05-20] MEDS: HYDROcodone Bitartrate/Apap 5/325 Tablet PO (10:45)
== END 2022-05-20 11:37 | disposition home or self-care (01) ==
LOC: SDC 05:50 → AC 05:50
PROVIDERS: PCP Family Medicine; Referring Provider Obstetrics & Gynecology; Visit Provider Obstetrics & Gynecology
PROC: (CPT 58661; principal; 2022-05-20 07:15)
DX: N83.209 Unspecified ovarian cyst, unspecified side (principal); C50.911 Malignant neoplasm of unspecified site of right female breast; C50.912 Malignant neoplasm of unspecified site of left female breast; Z79.899 Other long term (current) drug therapy; Z91.89 Other specified personal risk factors, not elsewhere classified
CPT/HCPCS: 58661; 00840; 36415; 81025; 85025; 86850; 86900; 86901; 88305; J7120; J2405

== ENCOUNTER → 2022-06-30 | Outpatient (CLI) | payer BC, SELFPAY ==
[2022-06-30 11:07] LABS: Hemoglobin A1c 5.2 % (3.8-5.6)
[2022-06-30 11:08] LABS: Cholesterol 241 mg/dL (200); High Density Lipoprotein 67 mg/dL; Thyroid Stim Hormone (TSH) 2.51 uIU/mL (0.358-3.74); Triglycerides 234 mg/dL; Very Low Density Lipoprotein 47 mg/dL (5-40)
[2022-06-30 11:23] LABS: Vitamin D,25 Hydroxy 27.8 ng/mL
== END | disposition home or self-care (01) ==
LOC: PAVLAB 10:26
PROVIDERS: PCP Family Medicine; Referring Provider Obstetrics & Gynecology; Visit Provider Obstetrics & Gynecology
DX: Z13.220 Encounter for screening for lipoid disorders (principal)
CPT/HCPCS: 36415; 80061; 82306; 83036; 84443

== ENCOUNTER 2022-09-27 09:06 | Emergency (ER) | payer BC, SELFPAY ==
[2022-09-27 09:07] VITALS: BP 124/78; PULSE 90; RESP 14; TEMP 36.4; O2SAT 99; BMI 37.0
--- NOTE | 2022-09-27 09:31 | CT_ITS ---
STUDY: CT LUMBAR SPINE WITHOUT CONTRAST REASON FOR EXAM: Female, 47 years old. Low back and left hip pain following a fall. RADIATION DOSAGE (If Supplied By Facility): CTDIvol = ( 27.77 ) mGy, DLP = ( 730.58 ) mGycm TECHNIQUE: The patient was scanned in a multi detector CT scanner. High resolution transaxial imaging was performed. Images were obtained from L1 to S1 vertebral level. Sagittal and coronal images were reconstructed. Individualized dose optimization techniques were used for this CT. COMPARISON: None FINDINGS: Normal lumbar lordosis. There is no substantial scoliosis. Normal vertebrae of the lumbar spine. L1-2: Normal endplates. Normal disc height and morphology. Normal bilateral facet joints. Normal central canal and bilateral lateral recesses. Normal bilateral intervertebral neural foramina. L2-3: Normal endplates. Normal disc height and morphology. Normal bilateral facet joints. Normal central canal and bilateral lateral recesses. Normal bilateral intervertebral neural foramina. L3-4: Normal endplates. Normal disc height and morphology. Normal bilateral facet joints. Normal central canal and bilateral lateral recesses. Normal bilateral intervertebral neural foramina. L4-5: Normal endplates. Normal disc height and morphology. Normal bilateral facet joints. Normal central canal and bilateral lateral recesses. Normal bilateral intervertebral neural foramina. L5-S1: Mild degree of disc space narrowing and anterior spondylosis. Normal visualized paraspinous soft tissue structures. CT/Spine Lumbar without Contrast IMPRESSION: Mild degree of disc space narrowing and spondylosis at the L5-S1 level. Electronically Signed: Leonard Morse MD at 10:00 EDT ,
--- NOTE | 2022-09-27 09:32 | EDS_ITS ---
HPI History of Present Illness Chief Complaint: Back Narrative Narrative: 47-year-old female past medical history of occasional back pain, breast cancer status postchemotherapy, presents with fall with injury to her low back. She states that on Monday, 4 days ago, she was wearing flip-flops and walked backwards. She while she fell on her buttocks, she was able to stand afterwards, and thought she was fine. The following day, she twisted, and felt a pop in her low back. She now has pain that radiates more towards her left hip. She denies any fever or chills. No loss of bowel or bladder. No saddle anesthesia. She has been taking ibuprofen and applying heat without relief of her symptoms. She denies any red flag signs for cauda equina. However, she states that she is concerned mainly that she wants to ensure that she has not broken anything in her back. 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 [facility] Medical History Axillary adenopathy Bilateral breast cancer Breast mass Cancer Chest wall pain Leg cramps Non-smoker Redness of skin Restless legs Wears contact lenses Wears glasses Home Medications biotin 1 mg capsule 1 mg PO DAILY 02/16/22 [History Last Taken Unknown] calcium phosphate,dibasic 77 mg-vitamin D3 400 unit tablet 1 tab PO DAILY 02/16/22 [History Last Taken Unknown] letrozole 2.5 mg tablet 2.5 mg PO DAILY 04/29/22 [History Last Taken Unknown] cholecalciferol (vitamin D3) 25 mcg (1,000 unit) capsule 25 mcg PO DAILY 06/30/22 [History Last Taken Unknown] phentermine 37.5 mg tablet (Adipex-P) 18.75 mg PO QDAY #15 tabs 09/02/22 [Rx Last Taken Unknown] cyclobenzaprine 10 mg tablet 10 mg PO TID PRN Muscle Spasm #20 TABLETS 09/27/22 [Rx Last Taken Unknown] Allergy/AdvReac Type Severity Reaction Status Date / Time paclitaxel [From Taxol] Allergy Anaphylaxis Verified 09/27/22 09:07 Penicillins Allergy Swelling Verified 09/27/22 09:07 Family History Grandmother Breast cancer Diabetes Uterine cancer Ovarian cancer Mother Hypertension Grandfather Diabetes Other Breast mass Surgical History History of bilateral mastectomy History of cholecystectomy Hx of tonsillectomy Hx of wisdom tooth extraction S/P bilateral oophorectomy Social History Smoking Status: Never smoker alcohol intake: never substance use type: does not use what type of physical activity do you participate in: none do you feel safe at home: Yes additional social history: - ROS ROS ED ROS Narrative Constitutional: No fever, no chills. HEENT: No sore throat. No neck pain. No loss of vision. No rhinorrhea. Cardiovascular: No chest pain. No palpitations. No pedal edema. Respiratory: No cough, no shortness of breath. Abdominal: No abdominal pain. No nausea. No vomiting. Genitourinary: No dysuria. No hematuria. Musculoskeletal: No myalgias. No arthralgias. Low back pain radiating to left hip. Worse with movement, bending and transferring. Neurologic: No headaches. No dizziness. No lightheadedness. No loss of bowel or bladder. No saddle anesthesia. Skin: No rash. No change in color. Psychiatric: No depression. No anxiety. EXAM Physical Exam Narrative Exam Narrative: Afebrile. Vital signs noted. HEENT: Normocephalic. Atraumatic. PERRL, EOMI. Neck soft and supple. No point tenderness or step off. Cardiovascular: Regular rate and rhythm. No murmurs, rubs, or gallops appreciated. Respiratory: No tachypnea. Lungs clear to auscultation bilaterally. Gastrointestinal: Abdomen soft, nontender, with normoactive bowel sounds. No rebound or guarding. Neurological: Awake. Alert. Nonfocal, nonlateralizing. DTRs, patella equal and symmetric. Positive tightness in back on left side with movement of left leg. Straight leg raising negative for cross symptoms. EHL intact bilaterally. Skin: No rash. Normal color. No pallor. Musculoskeletal: No pedal edema. Full range of motion extremities. Pelvis stable. Mild tenderness to palpation lumbar spine area, no step-off. Const Vital Signs: 09/27/22 09:07 Temperature 97.6 F L Temperature Source Temporal Pulse Rate 90 Respiratory Rate 14 Blood Pressure 124/78 H Blood Pressure Mean 93 Pulse Ox 99 Oxygen Delivery Method Room Air MDM MDM MDM Narrative Medical decision making narrative: I have low concern for cauda equina syndrome and do not feel that emergent MRI is indicated as she has no focal deficit. I do think that she probably has more of a lumbosacral strain. Given her history, CT imaging will be performed. She has had partial hysterectomy so I do not feel that beta-hCG is indicated prior to CT imaging. I reviewed the CT report which shows mild degree of disc space narrowing and spo ndylosis at the L5-S1 level, but there is no evidence of an acute fracture. I do feel that she has more of a lumbosacral strain. Treatment be symptomatic. She will continue ibuprofen 400 mg [id number] every 6-8 hours as she has been doing. I added a prescription for Flexeril. I feel she can be discharged safely home with follow-up to her primary care provider. Return instructions to the emergency department were reviewed. Disposition is discharged home in stable condition. Radiography Diagnostic Testing: Clinical Impression(s) from Imaging Studies Lumbar Spine CT 09/27/22 09:31 IMPRESSION: Mild degree of disc space narrowing and spondylosis at the L5-S1 level. Electronically Signed: Leonard Morse MD at 10:00 EDT , Discharge Plan Triage Chief Complaint: Back Other Complaint: Fall ED Provider: Shaan Peña Dx/Rx/DC Orders Clinical Impression: Lumbosacral injury, Lumbosacral strain Instructions: ED Back Sprain/Strain Prescriptions: New cyclobenzaprine 10 mg tablet 10 mg PO TID PRN (Reason: Muscle Spasm) Qty: 20 0RF No Action letrozole 2.5 mg tablet 2.5 mg PO DAILY Rx Instructions: begin between days 2 and 5 of mentrual cycle cholecalciferol (vitamin D3) 25 mcg (1,000 unit) capsule 25 mcg PO DAILY phentermine [Adipex-P] 37.5 mg tablet 18.75 mg PO QDAY Qty: 15 0RF Rx Instructions: BMI 37 calcium phos,dibas-vitamin D3 77-400 mg-unit Tablet 1 tab PO DAILY biotin 1 mg Capsule 1 mg PO DAILY Primary Care Provider: Rayo Caceres Referrals: Rayo Caceres MD [Primary Care Provider] - 3-5 Days if not improving Activity Restrictions/Additional Instructions: Your CT did not show an acute fracture of your lumbar spine. Continue taking ibuprofen every 6-8 hours for pain. You may add a muscle relaxer that was prescribed to you, but be aware of drowsiness with that, and do not drive or operate heavy machinery while taking it. Disposition Disposition: Home, Self Care
== END 2022-09-27 11:07 | disposition home or self-care (01) ==
PROVIDERS: Emergency Provider Emergency Medicine; PCP Family Medicine; Visit Provider Emergency Medicine
DX: S39.012A Strain of muscle, fascia and tendon of lower back, initial encounter (principal); W19.XXXA Unspecified fall, initial encounter
CPT/HCPCS: 72131; 99282

== ENCOUNTER 2023-04-06 21:26 | Emergency (ER) | payer BC, SELFPAY ==
[2023-04-06 21:28] VITALS: BP 155/75; PULSE 94; RESP 15; TEMP 36.4; O2SAT 98; BMI 36.0
[2023-04-06 22:08] LABS: Bacteria 0 SEEN /hpf (None Seen); Mucous, Urine 0 SEEN /hpf (<or=2+); Red Blood Cells-Urine 0 SEEN /hpf (0-5); Squamous Epithelial Cells - UA 0 SEEN /hpf (5-10)
[2023-04-06 22:13] LABS: Absolute Lymphocyte Count 1.62 X10^3/uL (0.83-4.51); Absolute Neutrophil Count 6.7 X10^3/uL (2.0-7.7); Basophil# 0.02 X10^3/uL; Basophil% 0.2 % (0-1); Eosinophil# 0.39 X10^3/uL; Eosinophils% 4.1 % (0-5); Hematocrit 39.3 % (37-47); Hemoglobin 12.8 g/dL (12.0-15.0); Lymphocyte # 1.62 X10^3/ul (0.83-4.51); Lymphocyte % 17.2 % (19-41); Mean Corp Hgb Conc 32.6 g/dL (32-36); Mean Corpuscular Hgb 28.9 pg (27.0-32.0); Mean Corpuscular Volume 88.7 fL (81-99); Mean Platelet Vol. 8.5 fl (6.2-12.0); Monocyte# 0.65 X10^3/uL; Monocyte% 6.9 % (0-10); NRBC Flagged by Analyzer 0 % (0-5); Neutrophil % 71.3 % (47-70); Platelet Count 274 K/mm3 (150-450); RBC Distribution Width CV 12.3 % (11.6-14.6); RBC Distribution Width SD 40.4 fl (35.1-43.9); Red Blood Count 4.43 M/mm3 (4.2-5.4); White Blood Count 9.4 K/mm3 (4.4-11.0)
[2023-04-06 22:16] LABS: Color, Urine Straw (Yellow); Glucose, Dipstick Normal (Normal); Ketone-Dipstick Negative (Negative); Leukocyte Esterase-Dipstick 100 /ul (Negative); Nitrite-Dipstick Negative (Negative); Occult Blood-Urine Negative /ul (Negative); Protein-Dipstick Negative (Negative); Specific Gravity, Urine 1.005 (1.002-1.030); Urine Bilirubin Dipstick Negative (Negative); Urine Clarity Clear (Clear); Urine Urobilinogen Normal (Normal)
[2023-04-06 22:22] LABS: White Blood Cells 0-5 SEEN /hpf (0-5)
--- NOTE | 2023-04-06 22:30 | CT_ITS ---
EXAM: CT ABDOMEN AND PELVIS WITH INTRAVENOUS CONTRAST CLINICAL INDICATION: RLQ pain, diarrhea TECHNIQUE: Helically acquired images were obtained of the abdomen and pelvis with intravenous contrast. This CT exam was performed using one or more of the following dose reduction techniques: automated exposure control, adjustment of the mA and/or kV according to patient size, and/or use of iterative reconstruction technique. CONTRAST: IV 100mL Isovue-300 COMPARISON: No relevant prior studies available. FINDINGS: LOWER THORAX: Unremarkable. Lung bases are clear. No cardiomegaly. No significant pericardial effusion. ABDOMEN: LIVER: Unremarkable. Homogeneous. No focal mass. GALLBLADDER AND BILE DUCTS: The gallbladder is not identified and may be surgically absent. No intra- or extrahepatic biliary ductal dilation. PANCREAS: Unremarkable. No focal cystic or solid mass. SPLEEN: Unremarkable. Normal size without focal cystic or solid mass. ADRENALS: Unremarkable. No nodules. KIDNEYS AND URETERS: Unremarkable. Normal renal size and position. No hydronephrosis. STOMACH AND BOWEL: Unremarkable. No stomach or bowel distention. No focal inflammatory change. PELVIS: APPENDIX: The appendix is normal. BLADDER: Unremarkable. REPRODUCTIVE: Unremarkable as visualized. No mass. ABDOMEN and PELVIS: INTRAPERITONEAL SPACE: Unremarkable. No ascites or other fluid collection. No free air. BONES/JOINTS: Unremarkable. No suspicious lytic or blastic abnormality. SOFT TISSUES: Unremarkable. No discrete abdominal or pelvic wall hernia. VASCULATURE: Unremarkable. Abdominal aorta is non-dilated. LYMPH NODES: Unremarkable. No enlarged lymph nodes. CT/Abdomen/Pelvis W IV Cont ONLY IMPRESSION: No acute findings in the abdomen or pelvis. Electronically Signed: Wilmer Pichardo MD at 23:23 EDT ,
[2023-04-06 22:34] LABS: AST(SGOT) 34 U/L (15-37); Alanine Aminotransfer ALT/SGPT 66 U/L (13-56); Albumin, Serum 3.6 g/dL (3.2-5.0); Alkaline Phosphatase 66 U/L (45-117); Anion Gap 7 (5-15); BUN 15 mg/dL (7-18); Calcium,Total 9.2 mg/dL (8.5-10.1); Chloride 106 mmol/L (98-107); Creatinine, Serum 0.75 mg/dL (0.55-1.02); EST Glomerular Filtration Rate 87 mL/min (>60); Est Glom Filt Rate - Afr Amer 106 mL/min (>60); Estimated Creatinine Clearance 89.21 ml/min; Globulin 3.6 g/dL (2.2-4.2); Glucose 112 mg/dL (74-106); Lipase 19 U/L (13-75); Potassium 3.7 mmol/L (3.5-5.1); Protein, Total 7.2 g/dL (6.4-8.2); Sodium Level 140 mmol/L (136-145)
--- NOTE | 2023-04-06 23:34 | EDS_ITS ---
HPI HPI - GI History of Present Illness Chief Complaint: Abd Pain Informant: patient Narrative Narrative: Patient is a 47-year-old female with history of hyperlipidemia, breast cancer status postmastectomy and recent COVID infection (diagnosed 1 week ago.). She states her symptoms been relatively mild including a scratchy throat and a mild cough and congestion however 2 days ago when she thought she was getting better she then developed epigastric burning discomfort, cramping abdominal pain and then throughout the night had significant cramping and diarrhea. She took the day off the next day and continue to have cramping abdominal pain and diarrhea. She denies any black or blood in her stool. She did go to work today and has been taking Imodium as well as following a brat diet. She still cramping however she started noticed pain in her right lower quadrant and right flank after eating chicken and [employer] for dinner. She states her diarrhea is slightly improving. She currently only has mild symptoms. Because her has a history of appendicitis and knows that pain in the right lower quadrant can be associated this they came in for further evaluation. She denies any fever or chills. No urinary symptoms. Has been drinking lots of fluids. No other complaints or concerns at this time. [facility] Medical History Axillary adenopathy Bilateral breast cancer Breast mass Cancer Chest wall pain Leg cramps Non-smoker Redness of skin Restless legs Wears contact lenses Wears glasses Home Medications biotin 1 mg capsule 1 mg PO DAILY 02/16/22 [History Last Taken Unknown] calcium phosphate,dibasic 77 mg-vitamin D3 400 unit tablet 1 tab PO DAILY 02/16/22 [History Last Taken Unknown] cholecalciferol (vitamin D3) 25 mcg (1,000 unit) capsule 25 mcg PO DAILY 06/30/22 [History Last Taken Unknown] dicyclomine 20 mg tablet 20 mg PO TID PRN abdominal pain #20 tabs 04/06/23 [Rx Last Taken Unknown] ondansetron 4 mg disintegrating tablet 4 mg PO Q8H PRN PRN Nausea #10 tabs 04/06/23 [Rx Last Taken Unknown] Allergy/AdvReac Type Severity Reaction Status Date / Time paclitaxel [From Taxol] Allergy Anaphylaxis Verified 09/27/22 09:07 Penicillins Allergy Swelling Verified 09/27/22 09:07 Family History Grandmother Breast cancer Diabetes Uterine cancer Ovarian cancer Mother Hypertension Grandfather Diabetes Other Breast mass Surgical History History of bilateral mastectomy History of cholecystectomy Hx of tonsillectomy Hx of wisdom tooth extraction S/P bilateral oophorectomy Social History Smoking Status: Never smoker alcohol intake: never substance use type: does not use what type of physical activity do you participate in: none do you feel safe at home: Yes additional social history: - ROS ROS ED Constitutional Constitutional ED: Denies chills or fever(s) ENT ENT ED: Reports sore throat Cardiovascular Cardiovascular: Denies chest pain Respiratory/Chest Respiratory/Chest: Reports cough; Denies dyspnea Gastrointestinal Gastrointestinal: Reports abdominal pain and diarrhea; Denies nausea or vomiting Genitourinary Genitourinary ED: Denies dysuria or urinary frequency Musculoskeletal Musculoskeletal: Denies arthralgias or myalgias Integumentary Denies rash Neurologic Neurologic: Denies headache(s) EXAM Physical Exam Const Vital Signs: 04/06/23 21:28 Temperature 97.6 F L Temperature Source Temporal Pulse Rate 94 Respiratory Rate 15 Blood Pressure 155/75 H Blood Pressure Mean 101 Pulse Ox 98 Oxygen Delivery Method Room Air Positive well nourished and well developed General Appearance ED: well developed and NAD HEENT Reports moist mucous membranes Eyes PERRL and EOMs intact bilaterally Neck supple Resp normal respiratory effort and clear to auscultation bilaterally Cardio regular rate, regular rhythm and no murmurs GI non-tender and non-distended Auscultation: hyperactive bowel sounds Palpation: soft; Negative for guarding, rigid or mass Back/Spine no CVA tenderness Extremity full ROM Neuro Sensorium / Orientation: alert, oriented to person, oriented to place and oriented to time Motor Exam: general weakness Psych mental status grossly normal and thought process normal Skin no wounds Rashes: no rashes MDM MDM MDM Narrative Medical decision making narrative: Patient evaluated for crampy abdominal pain, diarrhea now right lower quadrant abdominal pain. This is in the setting of a recent COVID-19 infection. Differential includes viral enteritis, diverticulitis, appendicitis as well as renal colic. Patient does not have risk factors for C. difficile with no recent antibiotics and low suspicion for C. difficile as the cause of her symptoms. Clinically she does not appear dehydrated vital signs are only significant for mildly elevated blood pressure (155/75 upon arrival). CBC, CMP, lipase and urinalysis largely unremarkable. She has a very mild elevation of her ALT of 66 which is nondiagnostic. She does not have pain in her right upper quadrant and I do not suspect acute gallbladder/liver pathology. Her urinalysis does show 0- 5 white blood cells but no bacteria. We will send for culture but suspect this is reactive from her diarrhea. I do not think she requires antibiotics at this time. She does not have a leukocytosis, anemia or KORY. CT of the abdomen pelvis obtained which does not show any acute findings. Patient declines pain medicine in the ER. She is given dose of Bentyl prior to discharge. Suspect this is likely viral in nature. Patient is comfortable with this. I will be given a prescription for Bentyl as well as Zofran for symptom control. Given return precautions. Patient and verbalized agreement understanding with this plan. Discharged home in stable condition. Lab Data Labs: Laboratory Results - last 24 hr 04/06/23 21:55 WBC 9.4 RBC 4.43 Hgb 12.8 Hct 39.3 MCV 88.7 MCH 28.9 MCHC 32.6 RDW Std Deviation 40.4 RDW Coeff of Sarai 12.3 Plt Count 274 MPV 8.5 Immature Gran % (Auto) 0.300 Neut % (Auto) 71.3 H Lymph % (Auto) 17.2 L [place] % (Auto) 6.9 Eos % (Auto) 4.1 Baso % (Auto) 0.2 Absolute Neuts (auto) 6.7 Absolute Lymphs (auto) 1.62 Nucleated RBC % 0 Sodium 140 Potassium 3.7 Chloride 106 Carbon Dioxide 27.0 Anion Gap 7 BUN 15 Creatinine 0.75 Estim Creat Clear Calc 89.21 Est GFR (MDRD) Af Amer 106 Est GFR (MDRD) Non-Af 87 BUN/Creatinine Ratio 20.0 Glucose 112 H Calcium 9.2 Total Bilirubin 0.30 AST 34 ALT 66 H Alkaline Phosphatase 66 Total Protein 7.2 Albumin 3.6 Globulin 3.6 Albumin/Globulin Ratio 1.0 Lipase 19 Urine Color Straw Urine Clarity Clear Urine pH 7.0 Ur Specific [place] 1.005 Urine Protein Negative Urine Glucose (UA) Normal Urine Ketones Negative Urine Occult Blood Negative Urine Nitrite Negative Urine Bilirubin Negative Urine Urobilinogen Normal Ur Leukocyte Esterase 100 H Urine RBC 0 SEEN Urine WBC 0-5 SEEN Ur Squamous Epith Cells 0 SEEN Urine Bacteria 0 SEEN Urine Mucus 0 SEEN Radiography Diagnostic Testing: Clinical Impression(s) from Imaging Studies Abdomen/Pelvis CT 04/06/23 22:30 IMPRESSION: No acute findings in the abdomen or pelvis. Electronically Signed: Wilmer Pichardo MD at 23:23 EDT , Discharge Plan Triage Chief Complaint: Abd Pain ED Provider: Lois George Dx/Rx/DC Orders Clinical Impression: Diarrhea due to COVID-19, Abdominal pain Instructions: ED Diarrhea, Viral (Adult) Prescriptions: New dicyclomine 20 mg tablet 20 mg PO TID PRN (Reason: abdominal pain) Qty: 20 0RF ondansetron 4 mg tablet,disintegrating 4 mg PO Q8H PRN PRN (Reason: Nausea) Qty: 10 0RF No Action cholecalciferol (vitamin D3) 25 mcg (1,000 unit) capsule 25 mcg PO DAILY calcium phos,dibas-vitamin D3 77-400 mg-unit Tablet 1 tab PO DAILY biotin 1 mg Capsule 1 mg PO DAILY Primary Care Provider: Rayo Caceers Referrals: Rayo Caceres MD [Primary Care Provider] - Activity Restrictions/Additional Instructions: Your CT was negative for any signs of appendicitis, diverticulitis more severe cause of your symptoms. I suspect this is from your recent COVID-19 infection. Continue to hydrate as you have been and take the medicine prescribed as needed for symptoms.
[2023-04-06] MEDS: Dicyclomine 10 MG Capsule 20 MG PO (23:43)
== END 2023-04-06 23:52 | disposition home or self-care (01) ==
PROVIDERS: Emergency Provider Emergency Medicine; PCP Family Medicine; Visit Provider Emergency Medicine
DX: R19.7 Diarrhea, unspecified (principal); U07.1 COVID-19; R10.31 Right lower quadrant pain
CPT/HCPCS: 74177; 80053; 81001; 83690; 85025; 87086; 99282; Q9967; A4216

== ENCOUNTER 2024-01-05 13:41 | Emergency (ER) | payer BC, SELFPAY ==
[2024-01-05 13:42] VITALS: BP 157/80; PULSE 95; RESP 15; TEMP 36.8; O2SAT 99; BMI 38.5
--- NOTE | 2024-01-05 14:19 | EKG12_ITS ---
Test Reason : CP Blood Pressure : / mmHG Vent. Rate : 087 BPM Atrial Rate : 087 BPM P-R Int : 150 ms QRS Dur : 096 ms QT Int : 364 ms P-R-T Axes : 054 003 056 degrees QTc Int : 438 ms Normal sinus rhythm with sinus arrhythmia Incomplete right bundle branch block Borderline ECG Confirmed by JOEY NAVAS, GOVIND ([id number]), video editor SUZI MCGOWAN ([id number]) on 01/09/2024 1:58:54 PM Referred By: ELLIE Confirmed By:BARBARA COOK MD
[2024-01-05] MEDS: Aspirin 81 MG TAB.CHEW 324 MG PO (14:28)
--- NOTE | 2024-01-05 14:35 | RAD_ITS ---
STUDY: X-RAY CHEST REASON FOR EXAM: Female, 48 years old. Chest pain TECHNIQUE: PA and lateral views of the chest. COMPARISON: None. FINDINGS: There are surgical clips in the left upper chest. The lungs are clear and expanded. There is no demonstrated pleural abnormality. Normal size heart. There are calcified left hilar lymph nodes. Normal visualized pulmonary arteries. Normal visualized aortic arch and descending thoracic aorta. Normal visualized thoracic spine. Normal visualized ribs, clavicles, and shoulders. There is no demonstrated abnormality of the visualized soft tissue structures of the upper abdomen. RAD/Chest PA and Lateral IMPRESSION: No acute cardiopulmonary disease. Electronically Signed: Barry Baltazar MD at 15:00 EDT ,
[2024-01-05 14:36] LABS: Absolute Lymphocyte Count 2.24 X10^3/uL (0.83-4.51); Absolute Neutrophil Count 3.8 X10^3/uL (2.0-7.7); Basophil# 0.03 X10^3/uL; Basophil% 0.4 % (0-1); Eosinophil# 0.26 X10^3/uL; Eosinophils% 3.8 % (0-5); Hemoglobin 13.1 g/dL (12.0-15.0); Lymphocyte # 2.24 X10^3/ul (0.83-4.51); Lymphocyte % 32.9 % (19-41); Mean Corp Hgb Conc 32.8 g/dL (32-36); Mean Corpuscular Hgb 29.2 pg (27.0-32.0); Mean Corpuscular Volume 89.1 fL (81-99); Monocyte# 0.48 X10^3/uL; NRBC Flagged by Analyzer 0 % (0-5); Neutrophil # 3.78 X10^3/uL (2.7-7.7); Neutrophil % 55.6 % (47-70); Platelet Count 320 K/mm3 (150-450); RBC Distribution Width CV 12.2 % (11.6-14.6); RBC Distribution Width SD 40.3 fl (35.1-43.9); Red Blood Count 4.49 M/mm3 (4.2-5.4); White Blood Count 6.8 K/mm3 (4.4-11.0)
[2024-01-05 14:41] VITALS: BP 129/77; PULSE 75; RESP 16; O2SAT 98
--- NOTE | 2024-01-05 14:53 | EDS_ITS ---
HPI <RICHELLE Abel - Last Filed: 01/05/24 18:14> History of Present Illness Chief Complaint: Chest Pain Narrative Narrative: Patient presenting today due to left-sided chest pain she has had intermittently since yesterday. She describes the pain as a burning sensation that is worse with certain movements of her torso and upper extremities. She does lift a lot of heavy objects while working. The pain occasionally radiates to her left shoulder blade. She has had occasional feelings of tightness in her bilateral hands and tingling to her left arm that started this afternoon. She did take a nap this afternoon and woke up with heartburn and nausea, prompting her to come in for evaluation. She denies any cardiac history or history of blood clots/recent surgery/travel/immobilization. She has had no fevers, chills, shortness of breath, abdominal pain, and vomiting. PMH includes breast cancer with bilateral mastectomy, her cancer is in remission. PFSH <RICHELLE Abel - Last Filed: 01/05/24 18:14> [facility] Medical History Wears glasses Redness of skin Wears contact lenses Cancer Restless legs Non-smoker Leg cramps Bilateral breast cancer Chest wall pain Axillary adenopathy Breast mass Home Medications ?Medication ?Instructions ?Recorded ?Last Taken ?Type biotin 1 mg capsule 1 mg PO DAILY 02/16/22 Unknown History calcium phosphate,dibasic 77 1 tab PO DAILY 02/16/22 Unknown History mg-vitamin D3 400 unit tablet cholecalciferol (vitamin D3) 25 25 mcg PO DAILY 06/30/22 Unknown History mcg (1,000 unit) capsule dicyclomine 20 mg tablet 20 mg PO TID PRN abdominal pain 04/06/23 Unknown Rx #20 tabs ondansetron 4 mg disintegrating 4 mg PO Q8H PRN PRN Nausea #10 tabs 04/06/23 Unknown Rx tablet Allergy/AdvReac Type Severity Reaction Status Date / Time paclitaxel (From Taxol) Allergy Anaphylaxis Verified 01/05/24 13:45 Penicillins Allergy Swelling Verified 01/05/24 13:45 Family History Grandmother Breast cancer Diabetes Uterine cancer Ovarian cancer Mother Hypertension Grandfather Diabetes Other Breast mass Surgical History S/P bilateral oophorectomy History of bilateral mastectomy Hx of wisdom tooth extraction Hx of tonsillectomy History of cholecystectomy Social History Smoking Status: Never smoker alcohol intake: never substance use type: does not use what type of physical activity do you participate in: none do you feel safe at home: Yes additional social history: - ROS <RICHELLE Abel - Last Filed: 01/05/24 18:14> ROS ED Constitutional Constitutional ED: Denies chills or fever(s) Cardiovascular Cardiovascular: Reports chest pain; Denies palpitations Respiratory/Chest Respiratory/Chest: Denies cough or dyspnea Gastrointestinal Gastrointestinal: Denies abdominal pain, nausea or vomiting Musculoskeletal Musculoskeletal: Denies arthralgias or myalgias Integumentary Denies rash Neurologic Neurologic: Denies weakness EXAM <RICHELLE Abel - Last Filed: 01/05/24 18:14> Physical Exam Const Vital Signs: 01/05/24 13:42 01/05/24 14:00 01/05/24 14:41 Temperature 98.3 F Temperature Source Oral Pulse Rate 95 75 Respiratory Rate 15 16 Respiratory Effort Normal Blood Pressure 157/80 H 129/77 H Blood Pressure Mean 105 94 Pulse Ox 99 98 Oxygen Delivery Method Room Air Room Air Oxygen Flow Rate (L/min) 01/05/24 15:00 01/05/24 16:00 01/05/24 17:26 Temperature 97.6 F L Temperature Source Pulse Rate 79 97 64 Respiratory Rate 21 H 22 H 18 Respiratory Effort Blood Pressure 121/79 H 105/62 134/78 H Blood Pressure Mean 93 76 96 Pulse Ox 97 93 99 Oxygen Delivery Method Room Air Nasal Cannula Oxygen Flow Rate (L/min) 2 Positive well nourished, well developed and no apparent distress General Appearance ED: well developed HEENT Reports normocephalic and head/scalp atraumatic Mouth ED: Yes moist mucous membranes normal Eyes PERRL and EOMs intact bilaterally Neck full ROM and supple Chest Wall inspection of chest normal Chest Narrative: Left-sided chest tenderness to palpation. Resp normal respiratory effort and clear to auscultation bilaterally Cardio regular rate and regular rhythm GI soft to palpation, non-tender, non-distended and no masses Back/Spine normal ROM and normal to inspection Extremity normal to inspection and full ROM Neuro oriented x3, CN's II-XII intact bilaterally, moves all extremities, no focal motor deficits and no sensory deficits noted Sensorium / Orientation: awake and alert Psych mental status grossly normal and thought process normal Skin no rashes or lesions noted and no wounds <Dr. Barry Guillen MD - Last Filed: 01/05/24 15:46> Physical Exam Const Vital Signs: 01/05/24 13:42 01/05/24 14:00 01/05/24 14:41 Temperature 98.3 F Temperature Source Oral Pulse Rate 95 75 Respiratory Rate 15 16 Respiratory Effort Normal Blood Pressure 157/80 H 129/77 H Blood Pressure Mean 105 94 Pulse Ox 99 98 Oxygen Delivery Method Room Air Room Air Oxygen Flow Rate (L/min) 01/05/24 15:00 01/05/24 16:00 01/05/24 17:26 Temperature 97.6 F L Temperature Source Pulse Rate 79 97 64 Respiratory Rate 21 H 22 H 18 Respiratory Effort Blood Pressure 121/79 H 105/62 134/78 H Blood Pressure Mean 93 76 96 Pulse Ox 97 93 99 Oxygen Delivery Method Room Air Nasal Cannula Oxygen Flow Rate (L/min) 2 MDM <RICHELLE Abel - Last Filed: 01/05/24 18:14> [facility] Narrative Medical decision making narrative: Patient presented with left-sided chest pain that started yesterday, she has had intermittent feelings of tightness in her bilateral hands and felt like she had heartburn and nausea this afternoon, prompting her to come in today. She is well-appearing and in no acute distress, she is PERC negative, low suspicion for PE. Cardiac workup will be obtained including a delta troponin to rule out ACS. Her labs overall are unremarkable. Nonsignificant delta troponin. Chest x-ray negative for any cardiopulmonary abnormality.. Her EKG is normal sinus rhythm with no ischemia. It has been several years since she has had a cardiac workup obtained, she has a low heart score, I do think she can follow-up as an outpatient. I do have suspicion that her chest pain is muscular in etiology given she does a lot of heavy lifting at work and does have reproducible pain to palpation to the left side of her chest. Return instructions were discussed, patient discharged home in stable condition. Lab Data Attestation: I reviewed the patient's lab results. Labs: Laboratory Results - last 24 hr 01/05/24 01/05/24 13:45 16:30 WBC 6.8 RBC 4.49 Hgb 13.1 Hct 40.0 MCV 89.1 MCH 29.2 MCHC 32.8 RDW Std Deviation 40.3 RDW Coeff of Sarai 12.2 Plt Count 320 MPV 9.0 Immature Gran % (Auto) 0.300 Neut % (Auto) 55.6 Lymph % (Auto) 32.9 [place] % (Auto) 7.0 Eos % (Auto) 3.8 Baso % (Auto) 0.4 Absolute Neuts (auto) 3.8 Absolute Lymphs (auto) 2.24 Nucleated RBC % 0 Sodium 140 Potassium 3.7 Chloride 107 Carbon Dioxide 27.0 Anion Gap 6 BUN 16 Creatinine 0.69 Estim Creat Clear Calc 127.11 Est GFR (MDRD) Af Amer 116 Est GFR (MDRD) Non-Af 96 BUN/Creatinine Ratio 23.2 H Glucose 116 H Calcium 9.1 Troponin I High Sens 6 4 Radiography X-Ray: Read by ED Physician Diagnostic Testing: Clinical Impression(s) from Imaging Studies Chest X-Ray 01/05/24 14:35 IMPRESSION: No acute cardiopulmonary disease. Electronically Signed: Barry Baltazar MD at 15:00 EDT , EKG Initial EKG: Comments: 87 bpm, normal sinus rhythm, no ST elevation, no signs of cardiac ischemia, interpreted by attending ED physician <Dr. Barry Guillen MD - Last Filed: 01/05/24 15:46> [facility] Lab Data Labs: Laboratory Results - last 24 hr 01/05/24 01/05/24 13:45 16:30 WBC 6.8 RBC 4.49 Hgb 13.1 Hct 40.0 MCV 89.1 MCH 29.2 MCHC 32.8 RDW Std Deviation 40.3 RDW Coeff of Sarai 12.2 Plt Count 320 MPV 9.0 Immature Gran % (Auto) 0.300 Neut % (Auto) 55.6 Lymph % (Auto) 32.9 [place] % (Auto) 7.0 Eos % (Auto) 3.8 Baso % (Auto) 0.4 Absolute Neuts (auto) 3.8 Absolute Lymphs (auto) 2.24 Nucleated RBC % 0 Sodium 140 Potassium 3.7 Chloride 107 Carbon Dioxide 27.0 Anion Gap 6 BUN 16 Creatinine 0.69 Estim Creat Clear Calc 127.11 Est GFR (MDRD) Af Amer 116 Est GFR (MDRD) Non-Af 96 BUN/Creatinine Ratio 23.2 H Glucose 116 H Calcium 9.1 Troponin I High Sens 6 4 Radiography Diagnostic Testing: Clinical Impression(s) from Imaging Studies Chest X-Ray 01/05/24 14:35 IMPRESSION: No acute cardiopulmonary disease. Electronically Signed: Barry Baltazar MD at 15:00 EDT , Treatment and Re-Evaluation Comments:: I have personally performed a face to face assessment of the patient and have reviewed the [place] Note. I performed a substantive portion of the visit including all aspects of the following. My [place] findings include: History is left hemithorax discomfort in the back and the chest worse with movement and lying on her left side that she woke up with 1 or 2 days ago and has been present since then. Today she had what felt like some indigestion and tingling in both of her hands. She is concerned all this was cardiac related. She has no cardiac risk factors. She is a history of breast cancer 1 or 2 years ago with double mastectomy, she has been in remission since then. She denies any history of DVT or PE or symptoms of DVT, recent immobilization, hospitalization, or surgery. Exam is well-appearing. No distress. Normal vital signs. Tender in the left anterior chest. Heart regular, lungs clear. No sign of a DVT or calf tenderness. Medical Decison Making EKG is normal with RSR prime. Two-view chest x-ray normal on my interpretation. Initial troponin is negative. We are getting a delta to ensure no significant changes given the tingling she was having in her upper extremities today. Suspect musculoskeletal etiologies may be some reflux on top of that today, less likely to be cardiac. We discussed trying muscle relaxers and reflux medications as needed, and following up. Other additions or changes: [None] Discharge Plan Triage Chief Complaint: Chest Pain ED Midlevel Provider: Elle Harding ED Provider: Barry Guillen Dx/Rx/DC Orders Clinical Impression: Chest wall pain Instructions: ED Chest Pain, Uncertain Cause Prescriptions: No Action cholecalciferol (vitamin D3) 25 mcg (1,000 unit) capsule 25 mcg PO DAILY calcium phos,dibas-vitamin D3 77-400 mg-unit Tablet 1 tab PO DAILY biotin 1 mg Capsule 1 mg PO DAILY dicyclomine 20 mg tablet 20 mg PO TID PRN (Reason: abdominal pain) Qty: 20 0RF ondansetron 4 mg tablet,disintegrating 4 mg PO Q8H PRN PRN (Reason: Nausea) Qty: 10 0RF Primary Care Provider: Rayo Caceres Referrals: Rayo Caceres MD [Primary Care Provider] - 5-7 Days Activity Restrictions/Additional Instructions: Follow-up with your PCP and return for any worsening of your symptoms. Print Language: Argentine Disposition Disposition: Home, Self Care Discharge Date/Time: 01/05/24 17:53
[2024-01-05 14:57] LABS: Anion Gap 6 (5-15); BUN 16 mg/dL (7-18); BUN/Creat Ratio 23.2 RATIO (10-20); Calcium,Total 9.1 mg/dL (8.5-10.1); Chloride 107 mmol/L (98-107); Creatinine, Serum 0.69 mg/dL (0.55-1.02); EST Glomerular Filtration Rate 96 mL/min (>60); Est Glom Filt Rate - Afr Amer 116 mL/min (>60); Estimated Creatinine Clearance 127.11 ml/min; Glucose 116 mg/dL (74-106); Potassium 3.7 mmol/L (3.5-5.1); Sodium Level 140 mmol/L (136-145); Troponin-I HS (w/2H Reflex) 6 pg/mL (3.0-54.0)
[2024-01-05 15:00] VITALS: BP 121/79; PULSE 79; RESP 21; O2SAT 97
[2024-01-05 16:00] VITALS: BP 105/62; PULSE 97; RESP 22; O2SAT 93
[2024-01-05 16:30] LABS: Reflex Troponin-HS? (from REC) Y
[2024-01-05 16:53] LABS: Troponin-I HS 4 pg/mL (3.0-54.0)
[2024-01-05 17:26] VITALS: BP 134/78; PULSE 64; RESP 18; TEMP 36.4; O2SAT 99
== END 2024-01-05 17:53 | disposition home or self-care (01) ==
PROVIDERS: Physician Assistant; Emergency Provider Emergency Medicine; PCP Family Medicine; Visit Provider Emergency Medicine
DX: R07.89 Other chest pain (principal)
CPT/HCPCS: 71046; 80048; 84484; 85025; 93005; 99284

== ENCOUNTER 2024-04-17 13:10 | Emergency (ER) | payer OTHER, BC, SELFPAY ==
[2024-04-17 13:11] VITALS: BP 125/90; PULSE 88; RESP 16; TEMP 36.6; O2SAT 98; BMI 36.3
[2024-04-17] MEDS: HYDROcodone Bitartrate/Apap 5/325 Tablet PO (14:10)
== END 2024-04-17 14:28 | disposition home or self-care (01) ==
PROVIDERS: Emergency Provider Emergency Medicine; PCP Family Medicine; Visit Provider Emergency Medicine
DX: S62.665A Nondisplaced fracture of distal phalanx of left ring finger, initial encounter for closed fracture (principal); R55 Syncope and collapse; Y99.0 Civilian activity done for income or pay; X58.XXXA Exposure to other specified factors, initial encounter
CPT/HCPCS: 73130; 93005; 99284

== ENCOUNTER → 2024-07-13 | Outpatient (CLI) | payer BC, SELFPAY ==
[2024-07-13 10:56] LABS: Erythrocyte Sedimentation Rate 11 mm/hr (0-30)
[2024-07-13 10:59] LABS: D-Dimer Quantitative (DVT/PE) 0.27 FEU/ug/m (0.27-0.49)
[2024-07-13 11:14] LABS: ALB/GLOB Ratio 0.9 RATIO (0.9-2.4); AST(SGOT) 20 U/L (15-37); Alanine Aminotransfer ALT/SGPT 42 U/L (13-56); Albumin, Serum 3.5 g/dL (3.2-5.0); Alkaline Phosphatase 59 U/L (45-117); Anion Gap 5 (5-15); BUN 10 mg/dL (7-18); BUN/Creat Ratio 14.6 RATIO (10-20); CRP 6.43 mg/L (0.0-3.0); Calcium,Total 9.1 mg/dL (8.5-10.1); Chloride 104 mmol/L (98-107); Cholesterol 211 mg/dL (200); Creatinine, Serum 0.68 mg/dL (0.55-1.02); EST Glomerular Filtration Rate 97 mL/min (>60); Est Glom Filt Rate - Afr Amer 117 mL/min (>60); Globulin 3.9 g/dL (2.2-4.2); Glucose 92 mg/dL (74-106); High Density Lipoprotein 76 mg/dL; Potassium 3.5 mmol/L (3.5-5.1); Protein, Total 7.4 g/dL (6.4-8.2); Sodium Level 137 mmol/L (136-145); Triglycerides 64 mg/dL; Very Low Density Lipoprotein 13 mg/dL (5-40)
[2024-07-15 15:26] LABS: Hemoglobin A1c 5.2 % (3.8-5.6)
== END | disposition home or self-care (01) ==
LOC: LAB 10:16
PROVIDERS: PCP Family Medicine; Referring Provider Family Medicine; Visit Provider Family Medicine
DX: E66.812 Obesity, class 2 (principal); R07.89 Other chest pain
CPT/HCPCS: 36415; 80053; 80061; 83036; 85379; 85652; 86140

== ENCOUNTER 2025-04-04 19:23 | Emergency (ER) | payer BC, SELFPAY ==
[2025-04-04 19:24] VITALS: BP 162/75; PULSE 91; RESP 18; TEMP 36.8; O2SAT 99; BMI 37.9
--- NOTE | 2025-04-04 19:36 | EKG12_ITS ---
Test Reason : DYSRHYTHMIA Blood Pressure : */* mmHG Vent. Rate : 86 BPM Atrial Rate : 86 BPM P-R Int : 152 ms QRS Dur : 100 ms QT Int : 372 ms P-R-T Axes : 40 -17 43 degrees QTcB Int : 445 ms Normal sinus rhythm Incomplete right bundle branch block Borderline ECG Confirmed by GORDON GARG ([id number]), newspaper or periodical editor JHOANA GHOSH ([id number]) on 04/07/2025 6:38:48 AM Referred By: Confirmed By: GORDON GARG
--- NOTE | 2025-04-04 19:36 | CT_ITS ---
PROCEDURE: CTA CHEST W/WO CONTRAST 04/04/2025 REASON FOR EXAM: CHEST PAIN, MODERATE RISK PE TECHNIQUE: Procedure Code: [id number] Modality: CT Procedure: CTA CHEST W/WO CONTRAST Multiplanar Sagittal and Coronal images were obtained. CONTRAST: 100 mL of Isovue 370 One or more dose reduction techniques were used (e.g., Automated exposure control, adjustment of the mA and/or kV according to patient size, use of iterative reconstruction technique). RADIATION DOSE SUMMARY: DLP: 448 mGycm COMPARISON: None FINDINGS: PULMONARY ARTERIES: No evidence of pulmonary embolism. LUNGS AND PLEURA: No consolidations. No definite pulmonary edema. No pleural effusion. No pneumothorax. 2 mm nodule within the left upper lobe best seen on series 2, image 219. 4 mm nodule within the left lower lobe best seen on series 2, image 98. MEDIASTINUM: Calcified mediastinal lymph node. The heart shows no acute findings. The aorta shows no acute findings. The pulmonary trunk, and branches of the vessels in the mediastinum are within normal limits. SUPRACLAVICULAR AND AXILLARY: No abnormalities seen in these regions. No mass or significant lymphadenopathy. UPPER ABDOMEN: The visualized upper abdomen is unremarkable. BONES AND SOFT TISSUES: The ribs are unremarkable. The visualized spine shows no significant acute findings. No focal bony mass lesions noted. The subcutaneous soft tissues are unremarkable.
--- NOTE | 2025-04-04 19:37 | ED.VIS.CHEST ---
HPI History of Present Illness Chief Complaint: Chest Other Detail of Chief Complaint: Anterior left-sided chest burning and posterior constant pain scapular eileen Informant: patient and spouse/S.O. Onset/Context/Timing Onset: Weeks (Anterior left chest pain described as burning with pleuritic component) and Month(s) (Left scapular pain that is constant and not pleuritic) Activity at onset: sudden, unknown and - Timing: Continuous (Left scapular pain) and Intermittent (Anterior left burning pleuritic pain) Quality: Positive for - (Previously described) Location: Left Chest and - (Left scapula) Current Severity: Mild Maximum Severity: Moderate Worsened By: Breathing; Not Worsened By Exertion, Movement of Arm, Movement of Torso, Eating, Palpation or Coughing Relieved By: Nothing Associated Symptoms: Positive for Dyspnea (Dyspnea on exertion) and Cough (Nonproductive and minimal); Negative for Nausea, Vomiting, Diaphoresis, Fever, Lightheadedness, Acid Reflux or Palpitations Narrative Narrative: Patient is a 49-year-old woman. She has history of stage I breast cancer on the right, stage III breast cancer on the left and stage IV cancer left axilla. Patient states her cancer was her positive. She states she has been in remission since 2022. Her oncologist is Dr. Rachid Roach. She denies fever, chills night sweats. She denies weight loss. She had a recent long distance trip to [facility]. She denies prior history of PE or DVT. She describes the pain mainly around her incision site as a burning sensation. There is a pleuritic component. There is also a constant left scapular pain has been present for months. She has constant congestion. There is no history of seasonal allergies. She does have a slight cough that is nonproductive. She denies leg pain, swelling discoloration. She denies abdominal pain. She has no GI symptoms. Prior Similar Symptoms: No Recent Illness/Hospitalization: No CVD Risk Factors: Negative for Hypertension, Diabetes, Hypercholesterolemia, Family History 1' </=55 or Smoking PE Risk Factors: Positive for Recent Travel/Surgery and Cancer; Negative for Recent Immobilization, Prior DVT or PE or OCP + Smoking + >/=35 TAD Risk Factors: Negative for Marfan's Syndrome, Hypertension or Family History [facility] Medical History Fracture of distal phalanx of left ring finger Wears glasses Redness of skin Wears contact lenses Cancer Restless legs Non-smoker Leg cramps Bilateral breast cancer Chest wall pain Axillary adenopathy Breast mass Home Medications ?Medication ?Instructions ?Recorded ?Last Taken ?Type biotin 1 mg capsule 1 mg PO DAILY 02/16/22 Unknown History calcium phosphate,dibasic 77 1 tab PO DAILY 02/16/22 Unknown History mg-vitamin D3 400 unit tablet cholecalciferol (vitamin D3) 25 25 mcg PO DAILY 06/30/22 Unknown History mcg (1,000 unit) capsule Allergy/AdvReac Type Severity Reaction Status Date / Time paclitaxel (From Taxol) Allergy Anaphylaxis Verified 04/04/25 19:24 Penicillins Allergy Swelling Verified 04/04/25 19:24 Family History Grandmother Breast cancer Diabetes Uterine cancer Ovarian cancer Mother Hypertension Grandfather Diabetes Other Breast mass Surgical History S/P bilateral oophorectomy History of bilateral mastectomy Hx of wisdom tooth extraction Hx of tonsillectomy History of cholecystectomy Social History Smoking Status: Never smoker alcohol intake: never substance use type: does not use what type of physical activity do you participate in: none do you feel safe at home: Yes additional social history: - ROS ROS ED Constitutional Constitutional ED: Denies chills, fever(s), subjective, sweats or weight loss Eyes Eyes: Reports none ENT ENT ED: Reports rhinorrhea; Denies sore throat Cardiovascular Cardiovascular: Reports as per HPI and chest pain; Denies orthopnea, palpitations, paroxysmal nocturnal dyspnea or racing heartbeat Respiratory/Chest Respiratory/Chest: Reports dyspnea on exertion; Denies cough, dyspnea, orthopnea, paroxysmal nocturnal dyspnea or sputum Gastrointestinal Gastrointestinal: Denies abdominal pain, nausea or vomiting Genitourinary Genitourinary ED: Denies dysuria, hematuria or urinary frequency Musculoskeletal Musculoskeletal: Denies arthralgias, back pain or myalgias Integumentary Denies abscess or Abrasions Neurologic Neurologic: Denies paresthesias Psychiatric Psychiatric: Denies anxiety or depression Endocrine Endocrinology: Denies cold intolerance or heat intolerance Hematologic/Lymphatic Hematologic/Lymphatic: Denies easy bleeding or easy bruising EXAM Physical Exam Const Vital Signs: 04/04/25 19:24 Temperature 98.3 F Temperature Source Oral Pulse Rate 91 Respiratory Rate 18 Blood Pressure 162/75 H Blood Pressure Mean 104 Pulse Ox 99 Oxygen Delivery Method Room Air Positive well nourished and well developed General Appearance ED: well developed and NAD; Negative for pallor HEENT Reports moist mucous membranes normocephalic and atraumatic Eyes PERRL and EOMs intact bilaterally General Eye ED: Negative for pale conjunctiva or scleral icterus Chest Wall palpation of chest normal Chest Narrative: Well-healed scars with no acute abnormality noted. Resp normal respiratory effort and clear to auscultation bilaterally Cardio regular rate, regular rhythm, S1 normal heart sound, S2 normal heart sound and no murmurs GI normal to inspection, nondistended, normoactive bowel sounds, soft to palpation, non-tender, non-distended and no masses; Negative for hepatosplenomegaly Back/Spine no CVA tenderness and no thoracic nor lumbar tenderness Extremity normal to inspection General Extremety ED: Negative for edema or pulses abnormal General Extremity: Negative for edema or pulses abnormal Neuro oriented x3 and CN's II-XII intact bilaterally Sensorium / Orientation: awake and alert Psych mental status grossly normal Skin no rashes or lesions noted and no wounds General Skin Exam: Negative for jaundice or pallor MDM MDM MDM Narrative Medical decision making narrative: Differential diagnosis would include pleurisy, recurrent cancer, pulmonary embolus, bone metastasis. Since patient is hemodynamically stable and is moderate Pree risk probability for PE will obtain CTA of the chest along with appropriate blood work. Prior records were reviewed. History & Record Review Additional record(s) reviewed:: Prior outpatient record (Urgent care visits were noted. Reports authored by Estuardo COLMENARES) and Prior ED visit (Patient was seen January 05, 2024 for chest pain. She was seen April 2024 as a trauma victim. It was a work-related injury.) EKG Initial EKG: Attestation: I personally reviewed and interpreted this EKG as follows: Interpretation: Sinus Rhythm (Rate is 86. There is incomplete right bundle branch block noted. MS interval is 152 ms. QRS duration 100 ms. QT duration Carlos 72 ms. Echola is normal.) Discharge Plan Triage Chief Complaint: Chest Other ED Provider: JerodYung Dx/Rx/DC Orders Prescriptions: No Action cholecalciferol (vitamin D3) 25 mcg (1,000 unit) capsule 25 mcg PO DAILY calcium phos,dibas-vitamin D3 77-400 mg-unit Tablet 1 tab PO DAILY biotin 1 mg Capsule 1 mg PO DAILY Primary Care Provider: Rayo Caceres Referrals: Rayo Caceres MD [Primary Care Provider, Family Practice] Print Language: Kazakh
--- OUTSIDE RECORDS SUMMARY | 2025-04-04 20:01 | XMS RPT_ITS | CCD ---
Author Organization [facility] Care Team Providers Care Top Trimmer Name Role Phone Morris NAVAS, Jeanine Soha Primary Care Provider Mike NAVAS MD, Radha Unavailable [phone] Jadiel Mendez MD Unavailable Rachid Moore DO Unavailable Lorri GARCIA, Corrine Unavailable Unavailable Bess Levy Unavailable Unavailable GARRY SANTOS Attending Unavailable CACERES, JEANINE SOHA Referring Unavailable CACERES, JEANINE SOHA Primary Care Unavailable GARRY SANTOS Attending Unavailable JADIEL MENDEZ Referring Unavailabl e CACERES, JEANINE SOHA Primary Care Unavailable GARRY SANTOS Referring Unavailable CACERES, JEANINE SOHA Primary Care Unavailable JESIKA MELTON Attending Unavailable GARRY SANTOS Referring Unavailable CACERES, JEANINE SOHA Primary Care Unavailable GARRY SANTOS Referring Unavailable CACERES, JEANINE SOHA Primary Care Unavailable CACERES, JEANINE SOHA Primary Care Unavailable GARRY SANTOS Referring Unavailable GARRY SANTOS Attending Unavailable CACERES, JEANINE SOHA Primary Care Unavailable CACERES, JEANINE SOHA Referring Unavailable CACERES, JEANINE SOHA Primary Care Unavailable GARRY SANTOS Referring Unavailable CACERES, JEANINE SOHA Primary Care Unavailable GARRY SANTOS Attending Unavailable GARRY SANTOS Referring Unavailable GARRY SANTOS Admitting Unavailable CACERES, JEANINE SOHA Primary Care Unavailable GARRY SANTOS Attending Unavailable CACERES, JEANINE SOHA Referring Unavailable CACERES, JEANINE SOHA Primary Care Unavailable GARRY SANTOS Referring Unavailable GARRY SANTOS Attending Unavailable CACERES, JEANINE SOHA Referring Unavailable CACERES, JEANINE SOHA Primary Care Unavailable Morris NAVAS, Jeanine Soha Primary Care Provider Mike NAVAS MD, Radha Unavailable Jadiel Mendez MD Unavailable Rachid Moore DO Unavailable Lorri RN, Corrine Unavailable Unavailable Uri GARCIA, Bess Unavailable Unavailable Dr. Jeanine Caceres Primary Care Provider Dr. Jeanine Caceres Referring Provider Dr. Harmony Agosto Attending Provider Dr. Harmony Agosto Referring Provider Dr. Harmony Agosto Other Provider Dr. Jeanine Gonzalez Other Provider Morris NAVAS, Jeanine A Primary Care Provider [phone] Jeanine Caceres MD Primary Care Provider Jadiel Mendez MD Unavailable Lorri GARCIA, Corrine Unavailable Unavailable Mike NAVAS, Radha Unavailable Morris NAVAS, Jeannie A Primary Care Provider Barry Guillen Attending Unavailable Caceres, Jeannie Primary Care Unavailable Caceres, Jeanine Primary Care Unavailable Barry Guillen Attending Unavailable Ar Vanegas Attending Unavailable Caceres, Jeanine Referring Unavailable Caceres, Jeanine Primary Care Unavailable Caceres, Jeanine Referring Unavailable Caceres, Jeanine Primary Care Unavailable Ar Vanegas Attending Unavailable Ar Vanegas Attending Unavailable Caceres, Jeanine Referring Unavailable Caceres, Jeanine Primary Care Unavailable Ar Vanegas Attending Unavailable Caceres, Jeanine Referring Unavailable Caceres, Jeanine Primary Care Unavailable Ar Vanegas Attending Unavailable Caceres, Jeanine Referring Unavailable Caceres, Jeanine Primary Care Unavailable Caceres, Jeanine Attending Unavailable Caceres, Jeanine Referring Unavailable Caceres, Jeanine Primary Care Unavailable ASHLEY BERG Referring Unavailable CACERES, JEANINE A Primary Care Unavailable ASHLEY BERG Referring Unavailable CACERES, JEANINE A Primary Care Unavailable ASHLEY BERG Attending Unavailable CACERES, JEANINE A Primary Care Unavailable JASON SCHWARZ Referring Unavailable CACERES, JEANINE A Primary Care Unavailable ASHLEY BERG Referring Unavailable CACERES, JEANINE A Primary Care Unavailable ASHLEY BERG Attending Unavailable CACERES, JEANINE A Primary Care Unavailable JASON SCHWARZ Referring Unavailable JEANINE CACERES Primary Care Unavailable Allergies Allergy Classification Reported Allergen(s) Allergy Type Date of Onset Reaction(s) Facility (20 sources) fosaprepitant; Translations: [FOSAPREPITANT] Drug Allergy [address] [facility] (20 sources) Penicillins; Translations: [PENICILLINS] Propensity to adverse reactions [address] [facility] Work Phone: (20 sources) Polysorbate 80; Translations: [POLYSORBATE 80] Drug Allergy [address] [facility] (20 sources) Penicillins Propensity to adverse reactions [address] [facility] Work Phone: (20 sources) PACLitaxel; Translations: [PACLITAXEL] Drug Allergy [address] [facility] Work Phone: (5 sources) Penicillins Allergy to substance 2 Swelling [facility] (1 source) PACLitaxel Drug Allergy 5 [facility] (1 source) Penicillins Drug allergy (disorder) 5 [facility] (3 sources) Penicillins Drug Allergy [address] [facility] Work Phone: Medications Current Medications Medication Drug Class(es) Dates Sig (Normalized) Sig (Original) acetaminophen 325 mg oral tablet (20 sources) take 2 tablets by mouth every six hours as needed acetaminophen (TYLENOL) 325 mg tablet Take 650 mg by mouth every 6 hours as needed. Active Comment on above: Take 650 mg by mouth every 6 hours as needed. biotin 1 mg oral capsule (20 sources) Start: 02-16-2022 take 1 mg by mouth once daily Biotin Active 1 MG PO DAILY February 16, 2022 12:00am take 8 mg by mouth once daily bi otin 1 mg cap Take 8 mg by mouth once daily. Active Comment on above: Take 1 mg by mouth o nce daily. Take 8 mg by mouth o nce daily. Calcium Carbonate / vitamin D3 (20 sources) take 1 tablet by mouth once daily calcium carbonate/vitamin D3 (TOÑITO-600 WITH VITAMIN D ORAL) Take 1 tablet by mouth once daily. Active take 1 tablet by mouth once gurwinder y calcium carbonate/vitamin D3 (TOÑITO-600 WITH VITAMIN D ORAL) Take 1 tablet by mouth once daily. 0 Active Comment on above: Take 1 tablet by dev th once daily. Calcium Phos,Dibas-Vitamin D3 (3 sources) Start: 02-16-2022 take 1 tablet by mouth once daily Calcium Phos,Dibas-Vitamin D3 Active 1 TABLET PO DAILY February 16, 2022 12:00am Start: 02-16-2022 take 1 tablet by dev th once daily Calcium Phos,Dibas-Vitamin D3 Active 1 TABLET PO DAILY February 15, 2022 11:00pm Calcium Phos,Dibas-Vitamin D3 (Vitamin D (With Calcium)) 77-400 mg-unit Tablet (2 sources) Start: 02-16-2022 take 1 tablet by mouth once daily Calcium Phos,Dibas-Vitamin D3 (Vitamin D (With Calcium)) 77-400 mg-unit Tablet Active 1 TABLET PO DAILY February 16, 2022 12:00am cholecalciferol 0.025 mg oral capsule (2 sources) Vitamin D Start: 06-30-2022 take 25 ug by mouth once daily Cholecalciferol (Vitamin D3) Active 25 MCG PO DAILY June 30, 2022 1:00am dicyclomine hydrochloride 20 mg oral tablet (1 source) Anticholinergic Start: 04-06-2023 take 20 mg by mouth three times daily Dicyclomine Active 20 MG PO THREE TIMES A DAY April 06, 2023 11:41pm ibuprofen 200 mg oral tablet (20 sources) Nonsteroidal Anti-inflammatory Drug End: 12-07-2021 take 2 tablets by mouth every eight hours as needed ibuprofen (MOTRIN) 200 mg tablet Take 400 mg by mouth every 8 hours as needed. Active Comment on above: Take 400 mg by mouth every 8 hours as needed. 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 Discontinue saline lock post exam. If Pt. has a central line or IVAD, may access for administration according to line specific nursing protocol. Once exam is complete flush line and de-access according to line specific nursing protocol in the CT contrast administration guidelines link. 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 No IV access, insert saline lock prior to the beginning of sedation, infusion, injection of imaging exam. Discontinue saline lock post exam. If Pt has a central line or IVAD, may access for administration according to line specific nursing protocol. Once exam is complete flush line and de-access according to line specific nursing protocol in the MR contrast administration guidelines link 1 Each 0 11/03/2021 11/04/2021 Active Comment on above: MRI Breast SHARRI Injec t, intravenously, once for 1 dose. No IV access, insert saline lock prior to the beginning of sedation, infusion, injection of imaging exam. Discontinue saline lock post exam. If Pt has a central line or IVAD, may access for administration according to line specific nursing protocol. Once exam is complete flush line and de-access according to line specific nursing protocol in the MR contrast administration guidelines link CT Chest W -Inject, intravenously, once for 1 dose.No IV access, insert saline lock prior to the beginning of sedation, infusion, injection of imaging exam. Discontinue saline lock post exam. If Pt. has a central line or IVAD, may access for administration according to line specific nursing protocol. Once exam is complete flush line and de-access according to line specific nursing protocol in the CT contrast administration guidelines link. 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 Apply as directed evening before and morning of procedure. 30 g 0 12/09/2021 12/10/2021 Active Start: 07-09-2021 End: 07-09-2022 lidocaine-prilocaine (EMLA) 2.5-2.5 % cream Apply to port site 60 minutes prior to accessing. 15 g 2 07/09/2021 03/24/2022 Discontinued Comment on above: Apply to port site 6 0 minutes prior to accessing. Apply to affected ar ea as directed for 1 day. Apply as directed evening before and morning of procedure. Multivitamin preparation (2 sources) Start: 06-14-19 take 1 tablet by mouth once daily Multivitamin Active 1 TABLET PO DAILY June 14, 2021 1:00am ondansetron 4 mg disintegrating oral tablet (1 source) Serotonin-3 Receptor Antagonist Start: 04-06-20 take 4 mg by mouth every eight hours as needed Ondansetron Active 4 MG PO EVERY 8 HOURS NEEDED April 06, 2023 12:00am potassium chloride 10 meq extended release oral tablet (1 source) Start: 08-17-19 End: 08-24-19 take 2 tablets by mouth once daily potassium chloride (K-TAB) 10 mEq tablet Take 2 tablets by mouth once daily for 7 days. 14 tablet 08/16/2024 08/23/2024 Active 125 ml sodium chloride 9 mg/ml prefilled syringe (20 sources) Start: 07-02-19 End: 09-19-19 24 sodium chloride 0.9 % (flush) 10 mL (BD POSIFLUSH) Completed/Discontinued Medications Medication Drug Class(es) Dates Sig (Normalized) Sig (Original) acetaminophen 325 mg / oxyCODONE hydrochloride 5 mg oral tablet (3 sources) Opioid Agonist Start: 05-20-2022 End: 06-30-2022 take 1 tablet by mouth every six hours Oxycodone-Acetamin ophen (Percocet) 5-325 mg tablet Discontinued 1 TABLET PO EVERY 6 HOURS 29 12May 20, 2022 June 30, 2022 10:33am anastrozole 1 mg oral tablet (8 sources) Aromatase Inhibitor Start: 09-29-2022 take 1 tablet by mouth once daily anastrozole (ARIMIDEX) 1 mg tablet Take 1 tablet by mouth once daily. 30 tablet 5 09/29/2022 Active Comment on above: Take 1 tablet by dev th once daily. benzonatate 100 mg oral capsule (9 sources) Non-narcotic Antitussive Start: 03-31-2023 take 2 capsules by mouth every eight hours as needed benzonatate (TESSALON PERLE) 100 mg capsule Take 2 capsules by mouth three times a day as needed. 30 capsule 0 03/31/2023 Active Start: 03-02-2022 End: 03-24-2022 take 1 capsule by mouth every eight hours as needed benzonatate (TESSALON PERLES) 100 mg capsule Take 1 capsule by mouth three times daily as needed for cough. 30 capsule 0 03/02/2022 03/24/2022 Discontinued Comment on above: Take 1 capsule by mo ilh three times daily as needed for cough. Take 2 capsules by out three times a day as needed. cyclobenzaprine hydrochloride 10 mg oral tablet (1 source) Muscle Relaxant Start: End: take 10 mg by mouth three times daily Cyclobenzaprine Discontinued 10 MG PO THREE TIMES A DAY September 27, 2022 12:00am April 06, 2023 11:40pm dexamethasone 4 mg oral tablet (20 sources) Corticosteroid Start: End: take 1 tablet by mouth twice daily at mealtime dexAMETHasone (DECADRON) 4 mg tablet Take 1 tablet by mouth twice daily with meals. on the second, third and fourth day after each chemotherapy treatment. 24 tablet 0 07/04/2021 12/07/2021 Discontinued Comment on above: Take 1 tablet by dev twice daily with meals. on the second, third and fourth day after each chemotherapy treatment. 0.4 ml enoxaparin sodium 100 mg/ml prefilled syringe (3 sources) Low Molecular Weight Heparin Start: End: Enoxaparin (Lovenox) 40 mg/0.4 mL syringe Discontinued 40 MG SQ DAILY 29 12May 20, 2022 1:00am June 30, 2022 10:34am start POD 1 take once daily for 1 week exemestane 25 mg oral tablet (4 sources) Aromatase Inhibitor Start: End: take 1 tablet by mouth once daily after mealtime exemestane (AROMASIN) 25 mg tablet Take 1 tablet by mouth once daily. TAKE AFTER A MEAL. 30 tablet 5 09/15/2022 11/30/2022 Discontinued (Other) Comment on above: Take 1 tablet by dev once daily. TAKE AFTER A MEAL. furosemide 20 mg oral tablet (20 sources) Loop Diuretic Start: End: take 1 tablet by mouth once daily furosemide (LASIX) 20 mg tablet TAKE 1 TABLET BY MOUTH EVERY DAY 30 tablet 0 11/15/2021 12/07/2021 Discontinued Start: 08-25-2021 End: 10-13-2021 take 1 tablet by mouth once daily furosemide (LASIX) 20 mg tablet TAKE 1 TABLET BY MOUTH EVERY DAY 30 tablet 0 10/13/2021 Active Comment on above: Take 1 tablet by dev once daily. TAKE 1 TABLET BY DEV TH EVERY DAY gabapentin 300 mg oral capsule (20 sources) Anti-epileptic Agent Start: 2 End: 2 take 1 capsule by mouth three times daily gabapentin (NEURONTIN) 300 mg capsule Take 1 capsule by mouth three times daily for 90 days. 90 capsule 2 10/04/2021 03/24/2022 Discontinued Comment on above: Take 1 capsule by mo [facility] three times daily for 90 days. letrozole 2.5 mg oral tablet (19 sources) Aromatase Inhibitor Start: 2 End: 3 Letrozole Discontinued 2.5 MG PO DAILY April 29, 2022 1:00am April 06, 2023 11:40pm begin between days 2 and 5 of mentrual cycle Start: 04-19-2022 End: 09-15-2022 take 1 tablet by mouth once daily letrozole (FEMARA) 2.5 mg tablet Take 1 tablet by mouth once daily. beginning 05/09/2022. 30 tablet 5 04/19/2022 09/15/2022 Discontinued Comment on above: Take 1 tablet by dev once daily. beginning 05/09/2022. 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 for 4 nights beginning the night of chemotherapy treatment. 90 tablet 0 09/23/2021 12/07/2021 Discontinued Comment on above: TAKE 1 TABLET BY DEV DAILY AT BEDTIME. FOR 4 NIGHTS BEGINNING THE NIGHT OF CHEMOTHERAPY TREATMENT. omeprazole 40 mg delayed release oral capsule (20 sources) Proton Pump Inhibitor Start: 07-28-19 End: 12-08-19 take 1 capsule by mouth once daily omeprazole (PRILOSEC) 40 mg capsule TAKE 1 CAPSULE BY MOUTH ONCE DAILY 30 capsule 2 09/17/2021 12/07/2021 Discontinued Comment on above: Take 1 capsule by mo [facility] once daily. 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 12 tablet 0 01/27/2022 03/24/2022 Discontinued Comment on above: Take 1 tablet by dev every 6 hours as needed for pain. perflutren lipid microspheres 1.3 mL in NaCl (PF) 0.9% 10 mL injection (DEFINITY) (20 sources) Start: 07-02-19 End: 10-02-19 perflutren lipid microspheres 1.3 mL in NaCl (PF) 0.9% 10 mL injection (DEFINITY) phentermine hydrochloride 37.5 mg oral tablet (20 sources) Sympathomimetic Amine Anorectic Start: 09-03-19 End: 04-06-20 Phentermine (Adipex-P) 37.5 mg tablet Discontinued 18.75 MG PO daily September 02, 2022 12:00am April 06, 2023 11:40pm BMI 37 Start: 08-01-2022 End: 09-02-2022 take 1 tablet by mouth once daily Phentermine (Adipex-P) 37.5 mg tablet Discontinued 37.5 MG PO daily August 01, 2022 5:40pm September 02, 2022 5:03pm bmi 38 Start: 07-02-2022 End: 08-01-2022 take 1 tablet by mouth once daily Phentermine (Adipex-P) 37.5 mg tablet Discontinued 37.5 MG PO daily July 02, 2022 1:00am July 02, 2022 11:52am End: 03-31-2023 take 0.5 tablet by mouth once daily Phentermine HCl 37.5 mg capsule Take 1/2 tablet by mouth once daily. 0 03/31/2023 Discontinued (Discontinued by another Health Care Provider) Comment on above: Take 37.5 mg by mout h. 1/2 tablet once a day Take 1/2 tablet by m outh once daily. predniSONE 20 mg oral tablet (20 sources) Start: 09-18-19 End: 12-08-19 predniSONE (DELTASONE) 20 mg tablet Take 1 tablet the evening prior to and the morning of each chemotherapy treatment. 10 tablet 0 10/21/2021 12/07/2021 Discontinued Comment on above: Take 1 tablet the ev ening prior to in the morning of chemotherapy the next time. Take 1 tablet the ev ening prior to and the morning of each chemotherapy treatment. promethazine hydrochloride 25 mg oral tablet (20 sources) Phenothiazine Start: 07-04-19 End: 12-08-19 take 1 tablet by mouth every six hours as needed promethazine (PHENERGAN) 25 mg tablet Take 1 tablet by mouth every 6 hours as needed. FOR NAUSEA 30 tablet 2 07/04/2021 12/07/2021 Discontinued Comment on above: Take 1 tablet by dev th every 6 hours as needed. FOR NAUSEA 100 ml zoledronic acid 0.04 mg/ml injection (3 sources) Bisphosphonate Start: 02-15-20 End: 02-15-20 4 mg, INTRAVENOUS, Administer over 15 Minutes, ONCE, 1 dose, On Mon02/14/25 at 1500, Hazardous Potential Reproductive Risk Drug: Use appropriate PPE. Start: 08-16-2024 End: 08-16-2024 4 mg, INTRAVENOUS, Administe r over 15 Minutes, ONCE, 1 dose, On Mon08/16/24 at 1530, Hazardous Potential Reproductive Risk Drug: Use appropriate PPE. Start: 02-09-2024 End: 02-09-2024 4 mg, INTRAVENOUS, Administe r over 15 Minutes, ONCE, 1 dose, On Mon02/09/24 at 1500, Hazardous Potential Reproductive Risk Drug: Use appropriate PPE. Problems Active Problems Problem Classification Problem Date Documented Da te Episodic/Chronic Abdominal pain (1 source) Abdominal pain; Translations: [Unspecified abdominal pain] 04-06-2023 Episodic Cancer of breast (20 sources) Overlapping malignant neoplasm of female breast; Translations: [Malignant neoplasm of overlapping sites of right female breast] Onset: 06-29-2021 Chronic Cancer of breast (8 sources) History of malignant neoplasm of breast; Translations: [Personal history of malignant neoplasm of breast] Onset: 02-23-2022 Episodic Disorders of lipid metabolism (3 sources) Hyperlipidemia; Translations: [Hyperlipidemia, unspecified] 06-30-2022 Chronic Fracture of upper limb (2 sources) Displaced fracture of distal phalanx of left ring finger, initial encounter for closed fracture; Translations: [Nondisplaced fracture of distal phalanx of left ring finger, initial encounter for closed fracture] Onset: 05-07-2024 Episodic Lymphadenitis (6 sources) Axillary lymphadenopathy; Translations: [Localized enlarged lymph nodes] Onset: 07-06-2021 06-23-2021 Episodic Nonmalignant breast conditions (10 sources) Breast lump; Translations: [Unspecified lump in the right breast, unspecified quadrant] 06-16-2021 Episodic Open wounds of extremities (5 sources) Laceration of right index finger; Translations: [Laceration without foreign body of right index finger without damage to nail, initial encounter] 11-15-2020 Episodic Other aftercare (2 sources) Surgical follow-up; Translations: [Encounter for other specified surgical aftercare] Episodic Other aftercare (1 source) Drug therapy finding; Translations: [Encounter for therapeutic drug level monitoring] Episodic Other aftercare (20 sources) Patient encounter status; Translations: [Encounter for adjustment and management of vascular access device] Onset: 03-23-2022 03-23-2022 Episodic Other aftercare (1 source) Encounter for other specified surgical aftercare; Translations: [Aftercare following surgery] Onset: 02-18-2022 Episodic Other aftercare (1 source) Radiotherapy follow-up; Translations: [Encounter for follow-up examination after completed treatment for conditions other than malignant neoplasm] Episodic Other aftercare (2 sources) Prophylactic aromatase inhibitors given; Translations: [intermediate project manager (current) use of aromatase inhibitors] 06-20-2024 Episodic Other aftercare (1 source) Encounter for follow-up examination after completed treatment for malignant neoplasm; Translations: [Encounter for follow-up surveillance of breast cancer] Onset: 11-18-2024 Episodic Other aftercare (1 source) intermediate project manager (current) use of aromatase inhibitors; Translations: [Aromatase inhibitor use] Onset: 11-18-2024 Episodic Other connective tissue disease (1 source) Pain in left arm; Translations: [Pain in left arm] Episodic Other injuries and conditions due to external causes (1 source) Lower back injury; Translations: [Unspecified injury of lower back, initial encounter] 10-05-2022 Episodic Other lower respiratory disease (1 source) Multiple nodules of lung; Translations: [Other nonspecific abnormal finding of lung field] Episodic Other lower respiratory disease (7 sources) Dyspnea; Translations: [Dyspnea, unspecified] Episodic Other nervous system disorders (1 source) Neuropathy caused by chemical substance; 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 Other nutritional; endocrine; and metabolic disorders (2 sources) Obesity; Translations: [Other obesity] 06-30-2022 Chronic Other nutritional; endocrine; and metabolic disorders (3 sources) Body mass index 30+ - obesity; Translations: [Body mass index (BMI) 39.0-39.9, adult] 06-30-2022 Chronic Other nutritional; endocrine; and metabolic disorders (1 source) Body mass index (BMI) 39.0-39.9, adult; Translations: [Body Mass Index 39.0-39.9, adult] 06-30-2022 Chronic Other nutritional; endocrine; and metabolic disorders (1 source) Other obesity; Translations: [Obesity, unspecified] 06-30-2022 Chronic Other upper respiratory infections (2 sources) Sore throat symptom; Translations: [Acute pharyngitis, unspecified] 03-31-2023 Episodic Residual codes; unclassified (1 source) Family history of breast cancer; Translations: [Family history of malignant neoplasm of breast] Episodic Residual codes; unclassified (3 sources) At high risk of venous thromboembolism; Translations: [Other specified personal risk factors, not elsewhere classified] 06-30-2022 Episodic Residual codes; unclassified (5 sources) Other specified personal risk factors, not elsewhere classified; Translations: [Other specified conditions influencing health status] Episodic Residual codes; unclassified (3 sources) Menopause present; Translations: [Asymptomatic menopausal state] 06-20-2024 Episodic Sprains and strains (1 source) Lumbosacral strain; Translations: [Strain of muscle, fascia and tendon of lower back, initial encounter] 10-05-2022 Episodic Unclassified (1 source) Obesity, class 2; Translations: [Obesity, class 2] Onset: 07-29-2024 Viral infection (1 source) Disease caused by 2019-nCoV; Translations: [COVID-19] 04-06-2023 Episodic Past or Other Problems Problem Classification Problem Date Documented Date Episodic/Chronic Biliary tract disease (20 sources) Gallstone; Translations: [Calculus of gallbladder without cholecystitis without obstruction] Onset: 08-01-2009 08-01-2009 Episodic Nonspecific chest pain (6 sources) Chest wall pain; Translations: [Other chest pain] Onset: 01-25-2024 06-23-2021 Episodic Other screening for suspected conditions (not mental disorders or infectious disease) (1 source) Encounter for screening for osteoporosis; Translations: [Encounter for screening for osteoporosis] Onset: 03-23-2022 Episodic Residual codes; unclassified (20 sources) Postmenopausal state; Translations: [Asymptomatic menopausal state] Onset: 03-24-2022 Episodic Residual codes; unclassified (8 sources) Estrogen receptor positive status [ER+]; Translations: [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, estrogen receptor positive (HCC)] Onset: 06-29-2021 Episodic Residual codes; unclassified (1 source) Family history of malignant neoplasm of breast; Translations: [Family history of malignant neoplasm of breast] Onset: 07-02-2021 Episodic Residual codes; unclassified (1 source) Asymptomatic menopausal state; Translations: [Menopause] Onset: 03-07-2025 Episodic Unclassified (1 source) Prophylactic aromatase inhibitors given 11-18-2024 Results Test Name Value Interpretation Reference Range Facility Basic metabolic 2000 panelon 02-14-2025 Anion gap [Moles/Vol] 11 mmol/L Normal 8-15 [facility] Comment on above: Order Comment: Speci men Type: BLOOD SPECIMEN Ordering Facility: [facility] Address: [address] [place] [address] Performed By: #### 2 4321-2 #### [facility] CLIA [id number] [address] [place] [address] [place] Calcium [Mass/Vol] 9.6 mg/dL Normal 8.5-10.2 [facility] Comment on above: Order Comment: Speci men Type: BLOOD SPECIMEN Ordering Facility: [facility] Address: [address] [place] [address] Performed By: #### 2 4321-2 #### [facility] CLIA [id number] [address] [place] [address] [place] Chloride [Moles/Vol] 103 mmol/L Normal 98-107 [facility] Comment on above: Order Comment: Speci men Type: BLOOD SPECIMEN Ordering Facility: [facility] Address: [address] [place] [address] Performed By: #### 2 4321-2 #### [facility] CLIA [id number] [address] [place] [address] [place] CO2 [Moles/Vol] 26 mmol/L Normal 22-30 [facility] Comment on above: Order Comment: Speci men Type: BLOOD SPECIMEN Ordering Facility: [facility] Address: [address] [place] [address] Performed By: #### 2 4321-2 #### [facility] CLIA [id number] [address] [place] [address] [place] Creatinine [Mass/Vol] 0.68 mg/dL Normal 0.58-0.96 [facility] Comment on above: Order Comment: Geraldine lara Type: BLOOD SPECIMEN Ordering Facility: [facility] Address: [address] [place], [place] [id number] Performed By: #### 2 4321-2 #### [facility] CLIA [id number] [address] [place] [address] [place] eGFRcr SerPlBld CKD-EPI 2020 106 mL/min/1.73m??? Normal >=60 [facility] Comment on above: Order Comment: Geraldine lara Type: BLOOD SPECIMEN Ordering Facility: [facility] Address: [address] [place] [address] Result Comment: Mariaa mated Glomerular Filtration Rate (eGFR) is calculated using the 2020 CKD-EPI creatinine equation. This equation utilizes serum creatinine, sex, and age as parameters. The creatinine assay has traceable calibration to isotope dilution-mass spectrometry. Refer to KDIGO guidelines for clinical interpretation. In patients with unstable renal function, e.g. those with acute kidney injury, the eGFR may not accurately reflect actual GFR. Performed By: #### 2 4321-2 #### [id number] [address] [place] [address] [place] Glucose [Mass/Vol] 98 mg/dL Normal 74-99 [facility] Comment on above: Order Comment: Geraldine lara Type: BLOOD SPECIMEN Ordering Facility: [facility] Address: [address] [place] [address] Result Comment: The [place] Diabetes Association (ADA) provides guidance for cutoff values for fasting glucose and random glucose. The ADA defines fasting as no caloric intake for at least 8 hours. Fasting plasma glucose results between 100 to 125 mg/dL indicate increased risk for diabetes (prediabetes). Fasting plasma glucose results greater than or equal to 126 mg/dL meet the criteria for diagnosis of diabetes. In the absence of unequivocal hyperglycemia, results should be confirmed by repeat testing. In a patient with classic symptoms of hyperglycemia or hyperglycemic crisis, random plasma glucose results greater than or equal to 200 mg/dL meet the criteria for diagnosis of diabetes. Reference: Standards of Medical Care in Diabetes 2016, [place] Diabetes Association. Diabetes Care. 2016.39(Suppl 1). Performed By: #### 2 4321-2 #### [facility] CLIA [id number] [address] [place] [address] [place] Potassium [Moles/Vol] 3.6 mmol/L Low 3.7-5.1 [facility] Comment on above: Order Comment: Speci men Type: BLOOD SPECIMEN Ordering Facility: [facility] Address: [address] [place] [address] Performed By: #### 2 4321-2 #### [facility] CLIA [id number] [address] [place] [address] [place] Sodium [Moles/Vol] 140 mmol/L Normal 136-144 [facility] Comment on above: Order Comment: Speci men Type: BLOOD SPECIMEN Ordering Facility: [facility] Address: [address] [place] [address] Performed By: #### 2 4321-2 #### [id number] [address] [place] [address] [place] Urea nitrogen [Mass/Vol] 19 mg/dL Normal 7-21 [facility] Comment on above: Order Comment: Speci men Type: BLOOD SPECIMEN Ordering Facility: [facility] Address: [address] [place] [address] Performed By: #### 2 4321-2 #### [id number] [address] [place] [address] [place] CNOVSPon 12-18-2024 CNOVSP Visit (SP) Office (HEMAWS) TRISH GILLILAND ([id number]) 1975 F Date Time Provider Department 12/18/24 2:00 PM JOHANN ASHLEY YEH During your visit today, we recorded the following information about you: Temperature Pulse Blood pressure Weight 97.4 degrees 79/minute 115/69 108.2 kg Ashley Berg APRN.CNP 12/18/2024 2:32 PM Signed Chief Complaint Patient presents with: Established Patient HPI: Trish Gilliland is a 49 year old female who presents here today for follow up breast cancer. Per Dr. Moore's previous note: H/o unremarkable past medical history. Patient appreciated a mass in the left breast starting about 8 months prior to presentation. She eventually developed pain and presented to the emergency room where she underwent a CTA of the chest on 06/14/2021. That study demonstrated no evidence of pulmonary embolism. There was an enhancing left axillary lymph node measuring 2.4 x 1.7 x 1.4 cm and there was also an ill-defined 2.4 x 2.3 x 2.1 cm soft tissue mass in the left breast. Smaller nodular density measuring 1 cm was observed in the upper medial right breast. There was evidence of old granulomatous disease without further comment. Patient underwent diagnostic mammogram on 06/15/2021 2 x 2.3 cm irregular mass in the anterior upper central portion of the left breast was observed. Biopsy was strongly recommended. There was also evidence of a 1.2 x 1 cm irregular nodule in the anterior subareolar region of the left breast for which biopsy was also recommended. The impression was bilateral breast masses but no comment was made on the right breast. Correlation with ultrasound the left axillary region was also recommended. Ultrasound of the right and left breasts was performed on 06/16/2021. Within the right breast there was a 7 x 7 x 7 mm ill-defined hypoechoic nodule with shadowing and increased blood flow at the 2 o'clock position of the breast at 5 cm from the nipple. There was a similar-appearing nodular density measuring 4 x 4 x 4 mm also observed at the 1 o'clock position of the breast 3 cm from the nipple. The impression was that of 2 adjacent hypoechoic irregular solid nodules at the 1 and 2 o'clock position of the breast as described. In the left breast there was a 2.7 x 3.5 x 2.3 cm irregular hypoechoic solid mass at the 12 o'clock position of the breast 3 cm from the nipple. Increased vascularity was observed. Biopsy was recommended. There was also evidence of a prominent lymph node in the left axillary region measuring 1.3 x 0.9 x 0.4 cm. Biopsy was recommended. Underwent biopsy on 06/16/2021. Ultrasound-guided biopsy was obtained of the left axillary enlarged lymph node with clip marking. The left breast mass was also biopsied using a 14-gauge biopsy needle with several passes and clipping. The right breast was also imaged with ultrasound and 2 masses were identified. Under ultrasound guidance, both of these masses were biopsied and clips were placed into each of them. Pathology: -Core biopsy of the RIGHT breast mass at the 2 o'clock position demonstrated invasive ductal carcinoma, nuclear grade 1. -Core biopsy of the RIGHT breast mass at 2 o'clock position also revealed fragments of benign breast tissue with fibrosis and focal minimal intraductal hyperplasia without atypia negative for malignancy. -The LEFT breast core biopsy demonstrated invasive ductal carcinoma, nuclear grade 2 as well as ductal carcinoma in situ. -LEFT axillary lymph node core biopsy revealed metastatic carcinoma consistent with breast primary. The comment reads that the left breast core biopsy demonstrating ductal carcinoma revealed DCIS comprising about 70% of the total tumor volume with solid pattern and nuclear grade 2. Necrosis and calcifications were not observed. The entire specimen from the lymph node biopsy demonstrated tumor. No lymph node tissue was identified. It measured 1.2 cm in greatest length and was nuclear grade 2. The cancer specimen from the right breast was ER/CT positive (both greater than 95%, strong intensity) and HER2 negative, IHC 0 The left breast tumor was ER positive (greater than 95%, moderate intensity), CT positive (25%, low to moderate intensity) and HER2 negative with IHC 0. MRI breasts 06/21/2021: Right breast: Breast tissue is scattered fibroglandular densities with minimal background enhancement. At the 2 o'clock position of the breast 4 cm behind the nipple and 5 cm above the nipple there were 2 irregular enhancing masses. The mass closest to the nipple measured 11 x 7 mm in diameter. Slightly above and more medial to this lesion was another smaller lesion measuring approximately 5 mm in diameter. Tissue clip artifact was noted medial to this superior lesion. Also of these lesions appeared to correspond to the ultrasound findings and were highly miguel angel (more content not included)... Normal [facility] BD DXA - AXIAL SKELETONon BD DXA - AXIAL SKELETON * * *Final Repor t* * * DATE OF EXAM: Nov 18 2024 1:27PM [facility] [id number] - BD DXA - AXIAL SKELETON / PROCEDURE REASON: multiple diagnoses * * * * Physician Interpretation * * * * EXAMINATION: DXA BONE DENSITOMETRY BD DXA - AXIAL SKELETON, BD DXA TRABECLR BONE SCORE (TBS) PATIENT DEMOGRAPHICS: Age: 49 years, Gender: Female SCANNER INFORMATION: DXA Model: Number 100 - [employer] C [address] Date Scanned: 11/18/2024 1:27 PM CLINICAL HISTORY: DIAGNOSTIC Encounter for follow-up surveillance of breast cancer Encounter for follow-up surveillance of breast cancer Menopause Aromatase inhibitor use. RISK FACTORS FOR OSTEOPOROSIS AND ASSOCIATED FRACTURES REPORTED BY THIS PATIENT: Please refer to Bone Health Questionnaire in the EMR CURRENT THERAPY: Please refer to Bone Health Questionnaire in the EMR TECHNICAL LIMITATIONS: None RESULTS: Lumbar spine (L1, L2, L3, L4): 1.002 g/cm2, T-score -0.4, Z-score 0.3 Lumbar spine: 2021: 1.016 g/cm2 No statistically significant change Left Femoral Neck: 0.827 g/cm2, T-score -0.2, Z-score 0.6 Left Femoral Neck: 2021: 0.823 g/cm2 No statistically significant change Left Total Hip: 1.037 g/cm2, T-score 0.8, Z-score 1.3 Left Total Hip: 2021: 1.037 g/cm2 No statistically significant change CHANGE IS STATISTICALLY SIGNIFICANT IN THE SPINE OR HIP IF GREATER THAN OR EQUAL TO 0.04 g/cm2 VERTEBRAL FRACTURE ASSESSMENT Not performed. TRABECULAR BONE ASSESSMENT TBS score: 1.276 Bone micro-architecture: Partially degraded (1.231 - 1.310) IMPRESSION: THE LOWEST T-SCORE IS -0.4 IN THE SPINE 1) DIAGNOSIS (based on BMD alone): NORMAL BONE DENSITY Caution: Medical conditions other than osteoporosis may cause low bone density, such as osteomalacia or renal osteodystrophy. Clinical correlation is necessary. 2) FRACTURE RISK (Based on TBS adjusted FRAX): 10-year absolute fracture risk: - major osteoporotic fracture = 4.1 % - hip fracture = 0.1 % - A diagnosis of Osteoporosis, a 10 year probability of hip fracture greater than or equal to 3% or a 10 year probability of any major osteoporosis-related fracture greater than or equal to 20% should be considered for treatment. - DXA scanner generated FRAX calculations may slightly differ from online FRAX calculations due to differences in software versions. - All recommendations and calculations are to be considered as guidelines and should not replace sound clinical judgement - Caution: Fracture risk may be increased independent of BMD in patients with corticosteroid use, age greater than 65 years, or a history of prior fragility fracture. RECOMMENDATIONS: Follow-up in 2 years or as clinically indicated. Patients that are taking corticosteroids, are transplant recipients or have hyperparathyroidism should have annual follow-up. Follow-up scans should always be done on the same machine for accurate comparison. FOR MORE INFORMATION ABOUT DIAGNOSIS AND TREATMENT: [facility] Osteoporosis and Metabolic Bone Disease:? [email or web address]/arthritis/o williamo National Osteoporosis Foundation:? www.nof.org International Society of Clinical Densitometry www.iscd.org [employer] Division Manager: LINDA Transcribe Date/Time: Nov 18 2024 2:13P Dictated by : CARLOS ADKINS MD This examination was interpreted and the report reviewed and electronically signed by: CARLOS ADKINS MD on Nov 18 2024 2:19PM EST [id number] -[id number] Normal [facility] BD DXA TRABECLR BONE SCORE ( TBS)on 11-18-2024 BD DXA TRABECLR BONE SCORE (TBS) * * *Final Report* * * DATE OF EXAM: Nov 18 2024 1:27PM [facility] 0801 - BD DXA TRABECLR BONE SCORE (TBS) / PROCEDURE REASON: multiple diagnoses * * * * Physician Interpretation * * * * EXAMINATION: DXA BONE DENSITOMETRY BD DXA - AXIAL SKELETON, BD DXA TRABECLR BONE SCORE (TBS) PATIENT DEMOGRAPHICS: Age: 49 years, Gender: Female SCANNER INFORMATION: DXA Model: Number 100 - [employer] [place] C [address] Date Scanned: 11/18/2024 1:27 PM CLINICAL HISTORY: DIAGNOSTIC Encounter for follow-up surveillance of breast cancer Encounter for follow-up surveillance of breast cancer Menopause Aromatase inhibitor use. RISK FACTORS FOR OSTEOPOROSIS AND ASSOCIATED FRACTURES REPORTED BY THIS PATIENT: Please refer to Bone Health Questionnaire in the EMR CURRENT THERAPY: Please refer to Bone Health Questionnaire in the EMR TECHNICAL LIMITATIONS: None RESULTS: Lumbar spine (L1, L2, L3, L4): 1.002 g/cm2, T-score -0.4, Z-score 0.3 Lumbar spine: 2021: 1.016 g/cm2 No statistically significant change Left Femoral Neck: 0.827 g/cm2, T-score -0.2, Z-score 0.6 Left Femoral Neck: 2021: 0.823 g/cm2 No statistically significant change Left Total Hip: 1.037 g/cm2, T-score 0.8, Z-score 1.3 Left Total Hip: 2021: 1.037 g/cm2 No statistically significant change CHANGE IS STATISTICALLY SIGNIFICANT IN THE SPINE OR HIP IF GREATER THAN OR EQUAL TO 0.04 g/cm2 VERTEBRAL FRACTURE ASSESSMENT Not performed. TRABECULAR BONE ASSESSMENT TBS score: 1.276 Bone micro-architecture: Partially degraded (1.231 - 1.310) IMPRESSION: THE LOWEST T-SCORE IS -0.4 IN THE SPINE 1) DIAGNOSIS (based on BMD alone): NORMAL BONE DENSITY Caution: Medical conditions other than osteoporosis may cause low bone density, such as osteomalacia or renal osteodystrophy. Clinical correlation is necessary. 2) FRACTURE RISK (Based on TBS adjusted FRAX): 10-year absolute fracture risk: - major osteoporotic fracture = 4.1 % - hip fracture = 0.1 % - A diagnosis of Osteoporosis, a 10 year probability of hip fracture greater than or equal to 3% or a 10 year probability of any major osteoporosis-related fracture greater than or equal to 20% should be considered for treatment. - DXA scanner generated FRAX calculations may slightly differ from online FRAX calculations due to differences in software versions. - All recommendations and calculations are to be considered as guidelines and should not replace sound clinical judgement - Caution: Fracture risk may be increased independent of BMD in patients with corticosteroid use, age greater than 65 years, or a history of prior fragility fracture. RECOMMENDATIONS: Follow-up in 2 years or as clinically indicated. Patients that are taking corticosteroids, are transplant recipients or have hyperparathyroidism should have annual follow-up. Follow-up scans should always be done on the same machine for accurate comparison. FOR MORE INFORMATION ABOUT DIAGNOSIS AND TREATMENT: [facility] Osteoporosis and Metabolic Bone Disease:? [email or web address].org/arthritis/o steo National Osteoporosis Foundation:? www.nof.org International Society of Clinical Densitometry www.iscd.org [employer] Division Manager: LINDA Transcribe Date/Time: Nov 18 2024 2:13P Dictated by : CARLOS ADKINS MD This examination was interpreted and the report reviewed and electronically signed by: CARLOS ADKINS MD on Nov 18 2024 2:19PM EST [id number] -[id number] Normal [facility] DXA Femur [T-score] Bone [employer] 11-18-2024 * * *Final Report* * * DATE OF EXAM: Nov 18 2024 1:27PM [facility] 0801 - BD DXA TRABECLR BONE SCORE (TBS) / PROCEDURE REASON: multiple diagnoses * * * * Physician Interpretation * * * * EXAMINATION: DXA BONE DENSITOMETRY BD DXA - AXIAL SKELETON, BD DXA TRABECLR BONE SCORE (TBS) PATIENT DEMOGRAPHICS: Age: 49 years, Gender: Female SCANNER INFORMATION: DXA Model: Number 100 - [employer] [place] C [id number] Date Scanned: 11/18/2024 1:27 PM CLINICAL HISTORY: DIAGNOSTIC Encounter for follow-up surveillance of breast cancer Encounter for follow-up surveillance of breast cancer Menopause Aromatase inhibitor use. RISK FACTORS FOR OSTEOPOROSIS AND ASSOCIATED FRACTURES REPORTED BY THIS PATIENT: Please refer to Bone Health Questionnaire in the EMR CURRENT THERAPY: Please refer to Bone Health Questionnaire in the EMR TECHNICAL LIMITATIONS: None RESULTS: Lumbar spine (L1, L2, L3, L4): 1.002 g/cm2, T-score -0.4, Z-score 0.3 Lumbar spine: 2021: 1.016 g/cm2 No statistically significant change Left Femoral Neck: 0.827 g/cm2, T-score -0.2, Z-score 0.6 Left Femoral Neck: 2021: 0.823 g/cm2 No statistically significant change Left Total Hip: 1.037 g/cm2, T-score 0.8, Z-score 1.3 Left Total Hip: 2021: 1.037 g/cm2 No statistically significant change CHANGE IS STATISTICALLY SIGNIFICANT IN THE SPINE OR HIP IF GREATER THAN OR EQUAL TO 0.04 g/cm2 VERTEBRAL FRACTURE ASSESSMENT Not performed. TRABECULAR BONE ASSESSMENT TBS score: 1.276 Bone micro-architecture: Partially degraded (1.231 - 1.310) DIVISION OF RADIOLOGY Provider, [facility] Yenni [facility] - 11/18/2024 * * *Final Report* * * DATE OF EXAM: Nov 18 2024 1:27PM [id number] [id number] - BD DXA TRABECLR BONE SCORE (TBS) / PROCEDURE REASON: multiple diagnoses * * * * Physician Interpretation * * * * EXAMINATION: DXA BONE DENSITOMETRY BD DXA - AXIAL SKELETON, BD DXA TRABECLR BONE SCORE (TBS) PATIENT DEMOGRAPHICS: Age: 49 years, Gender: Female SCANNER INFORMATION: DXA Model: Number 100 - [employer] [place] C [id number] Date Scanned: 11/18/2024 1:27 PM CLINICAL HISTORY: DIAGNOSTIC Encounter for follow-up surveillance of breast cancer Encounter for follow-up surveillance of breast cancer Menopause Aromatase inhibitor use. RISK FACTORS FOR OSTEOPOROSIS AND ASSOCIATED FRACTURES REPORTED BY THIS PATIENT: Please refer to Bone Health Questionnaire in the EMR CURRENT THERAPY: Please refer to Bone Health Questionnaire in the EMR TECHNICAL LIMITATIONS: None RESULTS: Lumbar spine (L1, L2, L3, L4): 1.002 g/cm2, T-score -0.4, Z-score 0.3 Lumbar spine: 2021: 1.016 g/cm2 No statistically significant change Left Femoral Neck: 0.827 g/cm2, T-score -0.2, Z-score 0.6 Left Femoral Neck: 2021: 0.823 g/cm2 No statistically significant change Left Total Hip: 1.037 g/cm2, T-score 0.8, Z-score 1.3 Left Total Hip: 2021: 1.037 g/cm2 No statistically significant change CHANGE IS STATISTICALLY SIGNIFICANT IN THE SPINE OR HIP IF GREATER THAN OR EQUAL TO 0.04 g/cm2 VERTEBRAL FRACTURE ASSESSMENT Not performed. TRABECULAR BONE ASSESSMENT TBS score: 1.276 Bone micro-architecture: Partially degraded (1.231 - 1.310) IMPRESSION IMPRESSION: THE LOWEST T-SCORE IS -0.4 IN THE SPINE 1) DIAGNOSIS (based on BMD alone): NORMAL BONE DENSITY Caution: Medical conditions other than osteoporosis may cause low bone density, such as osteomalacia or renal osteodystrophy. Clinical correlation is necessary. 2) FRACTURE RISK (Based on TBS adjusted FRAX): 10-year absolute fracture risk: - major osteoporotic fracture = 4.1 % - hip fracture = 0.1 % - A diagnosis of Osteoporosis, a 10 year probability of hip fracture greater than or equal to 3% or a 10 year probability of any major osteoporosis-related fracture greater than or equal to 20% should be considered for treatment. - DXA scanner generated FRAX calculations may slightly differ from online FRAX calculations due to differences in software versions. - All recommendations and calculations are to be considered as guidelines and should not replace sound clinical judgement - Caution: Fracture risk may be increased independent of BMD in patients with corticosteroid use, age greater than 65 years, or a history of prior fragility fracture. RECOMMENDATIONS: Follow-up in 2 years or as clinically indicated. Patients that are taking corticosteroids, are transplant recipients or have hyperparathyroidism should have annual follow-up. Follow-up scans should always be done on the same machine for accurate comparison. FOR MORE INFORMATION ABOUT DIAGNOSIS AND TREATMENT: [facility] Osteoporosis and Metabolic Bone Disease:? www.ccf.org/arthritis/o steo National Osteoporosis Foundation:? www.nof.org International Society of Clinical Densitometry www.iscd.org [employer] Division Manager: LINDA Transcribe Date/Time: Nov 18 2024 2:13P Dictated by : CARLOS ADKINS MD This examination was interpreted and the report reviewed and electronically signed by: CARLOS ADKINS MD on Nov 18 2024 2:19PM EST [facility] DXA Skeletal system.axial Vi ews for bone densityon 11-18-2024 * * *Final Report* * * DATE OF EXAM: Nov 18 2024 1:27PM [facility] [id number] - BD DXA - AXIAL SKELETON / PROCEDURE REASON: multiple diagnoses * * * * Physician Interpretation * * * * EXAMINATION: DXA BONE DENSITOMETRY BD DXA - AXIAL SKELETON, BD DXA TRABECLR BONE SCORE (TBS) PATIENT DEMOGRAPHICS: Age: 49 years, Gender: Female SCANNER INFORMATION: DXA Model: Number 100 - [employer] mobile C [id number] Date Scanned: 11/18/2024 1:27 PM CLINICAL HISTORY: DIAGNOSTIC Encounter for follow-up surveillance of breast cancer Encounter for follow-up surveillance of breast cancer Menopause Aromatase inhibitor use. RISK FACTORS FOR OSTEOPOROSIS AND ASSOCIATED FRACTURES REPORTED BY THIS PATIENT: Please refer to Bone Health Questionnaire in the EMR CURRENT THERAPY: Please refer to Bone Health Questionnaire in the EMR TECHNICAL LIMITATIONS: None RESULTS: Lumbar spine (L1, L2, L3, L4): 1.002 g/cm2, T-score -0.4, Z-score 0.3 Lumbar spine: 2021: 1.016 g/cm2 No statistically significant change Left Femoral Neck: 0.827 g/cm2, T-score -0.2, Z-score 0.6 Left Femoral Neck: 2021: 0.823 g/cm2 No statistically significant change Left Total Hip: 1.037 g/cm2, T-score 0.8, Z-score 1.3 Left Total Hip: 2021: 1.037 g/cm2 No statistically significant change CHANGE IS STATISTICALLY SIGNIFICANT IN THE SPINE OR HIP IF GREATER THAN OR EQUAL TO 0.04 g/cm2 VERTEBRAL FRACTURE ASSESSMENT Not performed. TRABECULAR BONE ASSESSMENT TBS score: 1.276 Bone micro-architecture: Partially degraded (1.231 - 1.310) DIVISION OF RADIOLOGY [facility] * * *Final Report* * * DATE OF EXAM: Nov 18 2024 1:27PM HIMA 0804 - BD DXA - AXIAL SKELETON / PROCEDURE REASON: multiple diagnoses * * * * Physician Interpretation * * * * EXAMINATION: DXA BONE DENSITOMETRY BD DXA - AXIAL SKELETON, BD DXA TRABECLR BONE SCORE (TBS) PATIENT DEMOGRAPHICS: Age: 49 years, Gender: Female SCANNER INFORMATION: DXA Model: Number 100 - [employer] mobile C [id number] Date Scanned: 11/18/2024 1:27 PM CLINICAL HISTORY: DIAGNOSTIC Encounter for follow-up surveillance of breast cancer Encounter for follow-up surveillance of breast cancer Menopause Aromatase inhibitor use. RISK FACTORS FOR OSTEOPOROSIS AND ASSOCIATED FRACTURES REPORTED BY THIS PATIENT: Please refer to Bone Health Questionnaire in the EMR CURRENT THERAPY: Please refer to Bone Health Questionnaire in the EMR TECHNICAL LIMITATIONS: None RESULTS: Lumbar spine (L1, L2, L3, L4): 1.002 g/cm2, T-score -0.4, Z-score 0.3 Lumbar spine: 2021: 1.016 g/cm2 No statistically significant change Left Femoral Neck: 0.827 g/cm2, T-score -0.2, Z-score 0.6 Left Femoral Neck: 2021: 0.823 g/cm2 No statistically significant change Left Total Hip: 1.037 g/cm2, T-score 0.8, Z-score 1.3 Left Total Hip: 2021: 1.037 g/cm2 No statistically significant change CHANGE IS STATISTICALLY SIGNIFICANT IN THE SPINE OR HIP IF GREATER THAN OR EQUAL TO 0.04 g/cm2 VERTEBRAL FRACTURE ASSESSMENT Not performed. TRABECULAR BONE ASSESSMENT TBS score: 1.276 Bone micro-architecture: Partially degraded (1.231 - 1.310) IMPRESSION IMPRESSION: THE LOWEST T-SCORE IS -0.4 IN THE SPINE 1) DIAGNOSIS (based on BMD alone): NORMAL BONE DENSITY Caution: Medical conditions other than osteoporosis may cause low bone density, such as osteomalacia or renal osteodystrophy. Clinical correlation is necessary. 2) FRACTURE RISK (Based on TBS adjusted FRAX): 10-year absolute fracture risk: - major osteoporotic fracture = 4.1 % - hip fracture = 0.1 % - A diagnosis of Osteoporosis, a 10 year probability of hip fracture greater than or equal to 3% or a 10 year probability of any major osteoporosis-related fracture greater than or equal to 20% should be considered for treatment. - DXA scanner generated FRAX calculations may slightly differ from online FRAX calculations due to differences in software versions. - All recommendations and calculations are to be considered as guidelines and should not replace sound clinical judgement - Caution: Fracture risk may be increased independent of BMD in patients with corticosteroid use, age greater than 65 years, or a history of prior fragility fracture. RECOMMENDATIONS: Follow-up in 2 years or as clinically indicated. Patients that are taking corticosteroids, are transplant recipients or have hyperparathyroidism should have annual follow-up. Follow-up scans should always be done on the same machine for accurate comparison. FOR MORE INFORMATION ABOUT DIAGNOSIS AND TREATMENT: [facility] for Osteoporosis and Metabolic Bone Disease:? www.ccf.org/arthritis/o steo National Osteoporosis Foundation:? www.nof.org International Society of Clinical Densitometry www.iscd.org [employer] Division Manager: LINDA Transcribe Date/Time: Nov 18 2024 2:13P Dictated by : CARLOS ADKINS MD This examination was interpreted and the report reviewed and electronically signed by: CARLOS ADKINS MD on Nov 18 2024 2:19PM [facility] Informationon 11-18 Radiology [facility]narrative[facility] IMPRESSION: THE LOWEST T-SCORE IS -0.4 IN THE SPINE 1) DIAGNOSIS (based on BMD alone): NORMAL BONE DENSITY Caution: Medical conditions other than osteoporosis may cause low bone density, such as osteomalacia or renal osteodystrophy. Clinical correlation is necessary. 2) FRACTURE RISK (Based on TBS adjusted FRAX): 10-year absolute fracture risk: - major osteoporotic fracture = 4.1 % - hip fracture = 0.1 % - A diagnosis of Osteoporosis, a 10 year probability of hip fracture greater than or equal to 3% or a 10 year probability of any major osteoporosis-related fracture greater than or equal to 20% should be considered for treatment. - DXA scanner generated FRAX calculations may slightly differ from online FRAX calculations due to differences in software versions. - All recommendations and calculations are to be considered as guidelines and should not replace sound clinical judgement - Caution: Fracture risk may be increased independent of BMD in patients with corticosteroid use, age greater than 65 years, or a history of prior fragility fracture. RECOMMENDATIONS: Follow-up in 2 years or as clinically indicated. Patients that are taking corticosteroids, are transplant recipients or have hyperparathyroidism should have annual follow-up. Follow-up scans should always be done on the same machine for accurate comparison. FOR MORE INFORMATION ABOUT DIAGNOSIS AND TREATMENT: [facility] for Osteoporosis and Metabolic Bone Disease:? www.ccf.org/arthritis/o steo National Osteoporosis Foundation:? www.nof.org International Society of Clinical Densitometry www.iscd.org [employer] Division Manager: LINDA Transcribe Date/Time: Nov 18 2024 2:13P Dictated by : CARLOS ADKINS MD This examination was interpreted and the report reviewed and electronically signed by: CARLOS ADKINS MD on Nov 18 2024 2:19PM [facility] DIVISION OF RADIOLOGY No Panel InformationOrdered By: Cc Provider on 11-18-2024 LOWEST T-SCORE -0.4 [facility] Basic metabolic 2000 panelon 08-16-2024 Anion gap [Moles/Vol] 10 mmol/L Normal 8-15 [facility] Comment on above: Order Comment: Speci men Type: BLOOD SPECIMEN Ordering Facility: [facility] Address: [address] [place] [address] Performed By: #### 2 4321-2 #### [facility] CLIA [id number] [address] [place] [address] [place] Calcium [Mass/Vol] 9.8 mg/dL Normal 8.5-10.2 [facility] Comment on above: Order Comment: Speci men Type: BLOOD SPECIMEN Ordering Facility: [facility] Address: [address] [place] [address] Performed By: #### 2 4321-2 #### [facility] CLIA [id number] [address] [place] [address] [place] Chloride [Moles/Vol] 102 mmol/L Normal 98-107 [facility] Comment on above: Order Comment: Speci men Type: BLOOD SPECIMEN Ordering Facility: [facility] Address: [address] [place] [address] Performed By: #### 2 4321-2 #### [facility] CLIA [id number] [address] [place] [address] [place] CO2 [Moles/Vol] 29 mmol/L Normal 22-30 [facility] Comment on above: Order Comment: Speci men Type: BLOOD SPECIMEN Ordering Facility: [facility] Address: [address] [place] [address] Performed By: #### 2 4321-2 #### [facility] CLIA [id number] [address] [place] [address] [place] Creatinine [Mass/Vol] 0.67 mg/dL Normal 0.58-0.96 [facility] Comment on above: Order Comment: Speci men Type: BLOOD SPECIMEN Ordering Facility: [facility] Address: [address] [place] [address] Performed By: #### 2 4321-2 #### [facility] CLIA [id number] [address] [place] [address] [place] Creatinine and Glomerular filtration rate.predicted panel (S/P/Bld) 107 mL/min/1.73m??? Normal >=60 [facility] Comment on above: Order Comment: Speci men Type: BLOOD SPECIMEN Ordering Facility: [facility] Address: [address] [place] [address] Result Comment: Mariaa mated Glomerular Filtration Rate (eGFR) is calculated using the 2020 CKD-EPI creatinine equation. This equation utilizes serum creatinine, sex, and age as parameters. The creatinine assay has traceable calibration to isotope dilution-mass spectrometry. Refer to KDIGO guidelines for clinical interpretation. In patients with unstable renal function, e.g. those with acute kidney injury, the eGFR may not accurately reflect actual GFR. Performed By: #### 2 4321-2 #### [id number] [address] [place] [address] [place] Glucose [Mass/Vol] 111 mg/dL High 74-99 [facility] Comment on above: Order Comment: Geraldine lara Type: BLOOD SPECIMEN Ordering Facility: [facility] Address: [address] [place] [address] Result Comment: The [place] Diabetes Association (ADA) provides guidance for cutoff values for fasting glucose and random glucose. The ADA defines fasting as no caloric intake for at least 8 hours. Fasting plasma glucose results between 100 to 125 mg/dL indicate increased risk for diabetes (prediabetes). Fasting plasma glucose results greater than or equal to 126 mg/dL meet the criteria for diagnosis of diabetes. In the absence of unequivocal hyperglycemia, results should be confirmed by repeat testing. In a patient with classic symptoms of hyperglycemia or hyperglycemic crisis, random plasma glucose results greater than or equal to 200 mg/dL meet the criteria for diagnosis of diabetes. Reference: Standards of Medical Care in Diabetes 2016, [place] Diabetes Association. Diabetes Care. 2016.39(Suppl 1). Performed By: #### 2 4321-2 #### [facility] [id number] [address] [place] [address] [place] Potassium [Moles/Vol] 3.4 mmol/L Low 3.7-5.1 [facility] Comment on above: Order Comment: Geraldine lara Type: BLOOD SPECIMEN Ordering Facility: [facility] Address: [address] [place] [address] Performed By: #### 2 4321-2 #### [facility] CLIA [id number] [address] [place] [address] [place] Sodium [Moles/Vol] 141 mmol/L Normal 136-144 [facility] Comment on above: Order Comment: Speci men Type: BLOOD SPECIMEN Ordering Facility: [facility] Address: [address] [place] [address] Performed By: #### 2 4321-2 #### [facility] CLIA [id number] [address] [place] [address] [place] Urea nitrogen [Mass/Vol] 12 mg/dL Normal 7-21 [facility] Comment on above: Order Comment: Speci men Type: BLOOD SPECIMEN Ordering Facility: [facility] Address: [address] [place] [address] Performed By: #### 2 4321-2 #### [facility] CLIA [id number] [address] [place] [address] [place] Urgent Care Visit Reporton 0 07-24-2024 Urgent Care Visit Report [facility] [address], [address] [place] [address] OFFICE VISIT Date of Service: 07/24/24 MR#: [id number] Acct: [id number] Name: TRISH GILLILAND Rep #: [id number] : 1975 Provider: RICHELLE Moura Age/Sex: 49/F Location: [facility] Status: Signed Intake Vital Signs 04/29/24 15:48 07/24/24 15:37 Height 5 ft 7 in BP 128/78 H Blood Pressure Location Rt brachial Position Sitting Respiration 16 Pulse 110 H Pulse Source NIBP Temp 101.5 F H Temp Source Oral Pulse Oximetry (%) 96 Oxygen Delivery Method room air Intake Visit Reasons: ST/COUGH/L EAR PAIN Chief Complaint: ST, cough, ear pain, BA, chills/sweats, joint pain 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 current oral temp 101.5, declines meds for this as she will take at home per pt. pt is in treatment for breast CA--provider informed. [facility] Medical History (Updated 04/29/24 @ 17:14 by Ar [place], [place]) Fracture of distal phalanx of left ring finger Wears glasses Redness of skin Wears contact lenses Cancer Restless legs Non-smoker Leg cramps Bilateral breast cancer Chest wall pain Axillary adenopathy Breast mass Surgical History S/P bilateral oophorectomy History of bilateral mastectomy Hx of wisdom tooth extraction Hx of tonsillectomy History of cholecystectomy Family History Grandmother Breast cancer Diabetes Uterine cancer Ovarian cancer Mother Hypertension Grandfather Diabetes Other Breast mass Social History Smoking Status: Never smoker alcohol intake: never substance use type: does not use what type of physical activity do you participate in: none do you feel safe at home: Yes additional social history: - HPI HPI Chief Complaint: ST, cough, ear pain, BA, chills/sweats, joint pain Details: TRISH GILLILAND, is a 49 F who presents to the office today for initial evaluation in the [facility] for approximately 8-10-hour history of persistent fever, chills, cough, GAMEZ, myalgias, fatigue.??? No complaints of chest pain or shortness of breath or dyspnea on exertion. Nonsmoker. Several close contacts recently diagnosed with similar URI complaints. No over the counter taken to assist. No other associated symptoms and no other alleviating/aggravating factors. PMH: Breast CA (having completed chemotherapy 2 yrs ago) ROS Const Constitutional: No other (As above) Exam Const General: cooperative, healthy appearing and no acute distress Orientation: alert, awake and oriented x3 HENMT Head: normal to inspection Ears: hearing grossly normal bilaterally, external ears normal, TM's normal bilaterally and EAC's normal Nose: external nose normal, nares normal, septum normal and clear nasal discharge Face and sinus: normal facial exam, sinuses nontender and face symmetric Mouth: oral mucosae normal, lip normal, tongue normal and oropharynx normal Throat: posterior oropharynx normal, tonsils normal, uvula midline and no postnasal drainage Eyes General: appearance normal, both eyes and all related structures Neck Neck: normal visual inspection, full ROM, no lymphadenopathy, no meningeal signs and supple Neck mass: No Thyroid: thyroid normal Lymphatic: no lymphadenopathy noted Chest Chest palpation inspection: normal inspection of the chest Resp Effort Inspection: normal respiratory effort, able to speak in complete sentences and cough Quality of cough: wet (nonproductive in office today) Auscultation: Bilateral: Clear to Auscultation Cardio Palpation: normal PMI Rate: tachycardic Rhythm: regular rhythm Heart Sounds: S1 normal, S2 normal, no gallops, no murmurs and no rubs Pulses: radial pulses present Skin General: no rashes or lesions noted Neuro General: patient alert, patient awake and patient oriented x3 Cognition: normal cognition Speech: speech normal Psych Appearance: grossly normal Mental Status: mental status grossly normal Mood: congruent mood Affect: normal affect Speech and Movement: speech and movement normal Attitude: cooperative Diagnoses Influenza A??? J10.1 Assessment and Plan Assessment and Plan (1) Influenza A: Status: Acute Plan: See POC results. Tamiflu as prescribed today. Supportiv (more content not included)... Normal [facility] Hemoglobin A1con 07-15-2024 HbA1c (Bld) [Mass fraction] 5.2 % Normal 3.8-5.6 [facility] Comment on above: Order Comment: Order Date: 01/08/24 Order Info: [id number] - SED Result Comment: Norm al < 5.7 % Prediabetic 5.7 - 6.4 % Diabetic >or= 6.5 % Please note range changes. Performed By: #### L 101.9900, L300.8000, L501.6710 #### [facility] Laboratory [facility] [place], [address] CRPon 07-13-2024 C-REACTIVE PROT 6.43 mg/L High 0.0-3.0 [facility] Comment on above: Order Comment: Order Date: 07/11/24 Order Info: [id number] - CMP Order Info: [id number] - LIPID Order Date: 01/08/24 Order Info: [id number] - CRP Result Comment: C-Re active Protein (CRP) provides useful information for the diagnosis, therapy and monitoring of inflammatory processes and associated diseases. For the evaluation of Relative Risk for Cardiovascular Disease, a High Sensitivity CRP (HSCRP) should be ordered. Performed By: #### L 101.9900, L300.8000, L501.6710 #### [facility] [address] [place], [address] Comprehensive Metabolic Prof ilon 07-13-2024 Albumin [Mass/Vol] 3.5 g/dL Normal 3.2-5.0 [facility] Comment on above: Order Comment: Order Date: 07/11/24 Order Info: [id number] - CMP Order Info: [id number] - LIPID Order Date: 01/08/24 Order Info: [id number] - CRP Performed By: #### L 501.9985, L500.4050, L500.4100 #### [facility] [address] [place], [address] Albumin/Globulin [Mass ratio] 0.9 {ratio} Normal 0.9-2.4 [facility] Comment on above: Order Comment: Order Date: 07/11/24 Order Info: [id number] - CMP Order Info: [id number] - LIPID Order Date: 01/08/24 Order Info: [id number] - CRP Performed By: #### L 501.9985, L500.4050, L500.4100 #### [facility] [address] [place], [address] ALK P 59 U/L Normal 45-117 [facility] Comment on above: Order Comment: Order Date: 07/11/24 Order Info: [id number] - CMP Order Info: [id number] - LIPID Order Date: 01/08/24 Order Info: [id number] - CRP Performed By: #### L 501.9985, L500.4050, L500.4100 #### [facility] [address] [place], [address] ALT [Catalytic activity/Vol] 42 U/L Normal 13-56 [facility] Comment on above: Order Comment: Order Date: 07/11/24 Order Info: [id number] - CMP Order Info: [id number] - LIPID Order Date: 01/08/24 Order Info: [id number] - CRP Performed By: #### L 501.9985, L500.4050, L500.4100 #### [facility] [address] [place], [address] AST [Catalytic activity/Vol] 20 U/L Normal 15-37 [facility] Comment on above: Order Comment: Order Date: 07/11/24 Order Info: [id number] - CMP Order Info: [id number] - LIPID Order Date: 01/08/24 Order Info: [id number] - CRP Performed By: #### L 501.9985, L500.4050, L500.4100 #### [facility] [address] [place], [address] Bilirubin [Mass/Vol] 0.50 mg/dL Normal 0.20-1.00 [facility] Comment on above: Order Comment: Order Date: 07/11/24 Order Info: [id number] - CMP Order Info: [id number] - LIPID Order Date: 01/08/24 Order Info: [id number] - CRP Result Comment: For patients on eltrombopag therapy, use of Dimension [place] TBIL is not recommended. Performed By: #### L 501.9985, L500.4050, L500.4100 #### [facility] [address] [place], [address] BUN/CRE 14.6 RATIO Normal 10-20 [facility] Comment on above: Order Comment: Order Date: 07/11/24 Order Info: [id number] - CMP Order Info: [id number] - LIPID Order Date: 01/08/24 Order Info: [id number] - CRP Performed By: #### L 501.9985, L500.4050, L500.4100 #### [facility] [address] [place], [address] CA,Total 9.1 mg/dL Normal 8.5-10.1 [facility] Comment on above: Order Comment: Order Date: 07/11/24 Order Info: [id number] - CMP Order Info: [id number] - LIPID Order Date: 01/08/24 Order Info: [id number] - CRP Performed By: #### L 501.9985, L500.4050, L500.4100 #### [facility] [address] [place], [address] Chloride [Moles/Vol] 104 mmol/L Normal 98-107 [facility] Comment on above: Order Comment: Order Date: 07/11/24 Order Info: [id number] - CMP Order Info: [id number] - LIPID Order Date: 01/08/24 Order Info: [id number] - CRP Performed By: #### L 501.9985, L500.4050, L500.4100 #### [facility] [address] [place], [address] CO2 [Moles/Vol] 28.0 mmol/L Normal 21.0-32.0 [facility] Comment on above: Order Comment: Order Date: 07/11/24 Order Info: [id number] - CMP Order Info: [id number] - LIPID Order Date: 01/08/24 Order Info: [id number] - CRP Performed By: #### L 501.9985, L500.4050, L500.4100 #### [facility] [address], [address] Creatinine [Mass/Vol] 0.68 mg/dL Normal 0.55-1.02 [facility] Comment on above: Order Comment: Order Date: 07/11/24 Order Info: [id number] - CMP Order Info: [id number] - LIPID Order Date: 01/08/24 Order Info: [id number] - CRP Result Comment: The validity of the calculated GFR GFRAA in patients over 70 years has not been determined. Clinical correlation is essential. Performed By: #### L 501.9985, L500.4050, L500.4100 #### [facility] [address] [place], [address] EST GFR - AA 117 mL/min Normal >60 [facility] Comment on above: Order Comment: Order Date: 07/11/24 Order Info: [id number] - CMP Order Info: [id number] - LIPID Order Date: 01/08/24 Order Info: [id number] - CRP Result Comment: Afri can Spanish GFR Calc Performed By: #### L 501.9985, L500.4050, L500.4100 #### [facility] [address] [place], [address] GAP 5 Normal 5-15 [facility] Comment on above: Order Comment: Order Date: 07/11/24 Order Info: [id number]- - CMP Order Info: [id number] - LIPID Order Date: 01/08/24 Order Info: [id number] - CRP Performed By: #### L 501.9985, L500.4050, L500.4100 #### [facility] [address] [place], [address] GFR/1.73 sq M.predicted among non-blacks MDRD (S/P/Bld) [Vol rate/Area] 97 mL/min/{1.73_m2} Normal >60 [facility] Comment on above: Order Comment: Order Date: 07/11/24 Order Info: [id number] - CMP Order Info: [id number] - LIPID Order Date: 01/08/24 Order Info: [id number] - CRP Result Comment: Non- GFR Calc Performed By: #### L 501.9985, L500.4050, L500.4100 #### [facility] [address] [place], [place], [address] Globulin (S) [Mass/Vol] 3.9 g/dL Normal 2.2-4.2 [facility] Comment on above: Order Comment: Order Date: 07/11/24 Order Info: [id number] - CMP Order Info: [id number] - LIPID Order Date: 01/08/24 Order Info: [id number] - CRP Performed By: #### L 501.9985, L500.4050, L500.4100 #### [facility] [address] [place], [place], [address] Glucose [Mass/Vol] 92 mg/dL Normal 74-106 [facility] Comment on above: Order Comment: Order Date: 07/11/24 Order Info: [id number] - CMP Order Info: [id number] - LIPID Order Date: 01/08/24 Order Info: [id number] - CRP Performed By: #### L 501.9985, L500.4050, L500.4100 #### [facility] [address] [place], [place], [address] Potassium [Moles/Vol] 3.5 mmol/L Normal 3.5-5.1 [facility] Comment on above: Order Comment: Order Date: 07/11/24 Order Info: [id number] - CMP Order Info: [id number] - LIPID Order Date: 01/08/24 Order Info: [id number] - CRP Performed By: #### L 501.9985, L500.4050, L500.4100 #### [facility] [address] [place], [address] Sodium [Moles/Vol] 137 mmol/L Normal 136-145 [facility] Comment on above: Order Comment: Order Date: 07/11/24 Order Info: [id number] - CMP Order Info: [id number] - LIPID Order Date: 01/08/24 Order Info: [id number] - CRP Performed By: #### L 501.9985, L500.4050, L500.4100 #### [facility] [address] [place], [address] T PROT 7.4 g/dL Normal 6.4-8.2 [facility] Comment on above: Order Comment: Order Date: 07/11/24 Order Info: [id number] - CMP Order Info: [id number] - LIPID Order Date: 01/08/24 Order Info: [id number] - CRP Performed By: #### L 501.9985, L500.4050, L500.4100 #### [facility] [address] [place], [place], [id number] Urea nitrogen [Mass/Vol] 10 mg/dL Normal 7-18 [facility] Comment on above: Order Comment: Order Date: 07/11/24 Order Info: [id number] - CMP Order Info: [id number] - LIPID Order Date: 01/08/24 Order Info: [id number] - CRP Performed By: #### L 501.9985, L500.4050, L500.4100 #### [facility] [address] [place], [address] D-Dimer Quantitative (DVT/PE )on 07-13-2024 D-DIMER QUANT 0.27 FEU/ug/m Normal 0.27-0.49 [facility] Comment on above: Order Comment: Order Date: 01/08/24 Order Info: [id number] - DDIMQ Result Comment: NORM AL D-Dimer level (<0.50) indicates no DVT or PE. Performed By: #### L 101.9900, L300.8000, L501.6710 #### [facility] [address] [place], [place], [id number] Erythrocyte Sed Rateon 07-13 SED RATE 11 mm/hr Normal 0-30 [facility] Comment on above: Order Comment: Order Date: 01/08/24 Order Info: [id number] - SED Performed By: #### L 101.9900, L300.8000, L501.6710 #### [facility] [address] [place], [address] Lipid Profileon 07-13-2024 Cholesterol [Mass/Vol] 211 mg/dL High 200 [facility] Comment on above: Order Comment: Order Date: 07/11/24 Order Info: [id number] - CMP Order Info: [id number] - LIPID Order Date: 01/08/24 Order Info: [id number] - CRP Result Comment: <200 mg/dL Desirable 200-240 mg/dL Borderline >240 mg/dL High Risk Performed By: #### L 501.9985, L500.4050, L500.4100 #### [facility] [address] [place], [address] Cholesterol in HDL [Mass/Vol] 76 mg/dL Normal [facility] Comment on above: Order Comment: Order Date: 07/11/24 Order Info: [id number] - CMP Order Info: [id number] - LIPID Order Date: 01/08/24 Order Info: [id number] - CRP Result Comment: The drugs N-Acetylcysteine and Metamizole may falsely depress this assay. Reference Range HDL <40 mg/dL Low HDL Cholesterol HDL >or= 60 mg/dL High HDL Cholesterol Performed By: #### L 501.9985, L500.4050, L500.4100 #### [facility] [address] [place], [address] Cholesterol in LDL [Mass/Vol] 122 mg/dL Normal 0-130 [facility] Comment on above: Order Comment: Order Date: 07/11/24 Order Info: [id number] - CMP Order Info: [id number] - LIPID Order Date: 01/08/24 Order Info: [id number] - CRP Performed By: #### L 501.9985, L500.4050, L500.4100 #### [facility] [address] [place], [address] Cholesterol in VLDL [Mass/Vol] 13 mg/dL Normal 5-40 [facility] Comment on above: Order Comment: Order Date: 07/11/24 Order Info: [id number] - CMP Order Info: [id number] - LIPID Order Date: 01/08/24 Order Info: [id number] - CRP Performed By: #### L 501.9985, L500.4050, L500.4100 #### [facility] [address] [place], [address] Triglyceride [Mass/Vol] 64 mg/dL Normal [facility] Comment on above: Order Comment: Order Date: 07/11/24 Order Info: [id number] - CMP Order Info: [id number] - LIPID Order Date: 01/08/24 Order Info: [id number] - CRP Result Comment: The drugs N-Acetylcysteine and Metamizole may falsely depress this assay. Serum Triglycerides Reference Interval Normal <150 mg/dL Borderline high 150 - 199 mg/dL High 200 - 499 mg/dL Very High > or = 500 mg/dL Performed By: #### L 501.9985, L500.4050, L500.4100 #### [facility] [address] [place], [address] CNOVSPon 06-20-2024 [facility] Visit (SP) Office (HEMBETSY) TRISH GILLILAND ([id number]) 1975 F Date Time Provider Department 06/20/24 10:30 AM ASHLEY BERG During your visit today, we recorded the following information about you: Temperature Pulse Blood pressure Weight 97.9 degrees 89/minute 115/70 108 kg Ashley Berg APRN.CNP 06/20/2024 1:46 PM Signed Chief Complaint Patient presents with: Established Patient HPI: Trish Dhillon Talat is a 49 year old female who presents here today for follow up breast cancer. Per Dr. Moore's previous note: H/o unremarkable past medical history. Patient appreciated a mass in the left breast starting about 8 months prior to presentation. She eventually developed pain and presented to the emergency room where she underwent a CTA of the chest on 06/14/2021. That study demonstrated no evidence of pulmonary embolism. There was an enhancing left axillary lymph node measuring 2.4 x 1.7 x 1.4 cm and there was also an ill-defined 2.4 x 2.3 x 2.1 cm soft tissue mass in the left breast. Smaller nodular density measuring 1 cm was observed in the upper medial right breast. There was evidence of old granulomatous disease without further comment. Patient underwent diagnostic mammogram on 06/15/2021 2 x 2.3 cm irregular mass in the anterior upper central portion of the left breast was observed. Biopsy was strongly recommended. There was also evidence of a 1.2 x 1 cm irregular nodule in the anterior subareolar region of the left breast for which biopsy was also recommended. The impression was bilateral breast masses but no comment was made on the right breast. Correlation with ultrasound the left axillary region was also recommended. Ultrasound of the right and left breasts was performed on 06/16/2021. Within the right breast there was a 7 x 7 x 7 mm ill-defined hypoechoic nodule with shadowing and increased blood flow at the 2 o'clock position of the breast at 5 cm from the nipple. There was a similar-appearing nodular density measuring 4 x 4 x 4 mm also observed at the 1 o'clock position of the breast 3 cm from the nipple. The impression was that of 2 adjacent hypoechoic irregular solid nodules at the 1 and 2 o'clock position of the breast as described. In the left breast there was a 2.7 x 3.5 x 2.3 cm irregular hypoechoic solid mass at the 12 o'clock position of the breast 3 cm from the nipple. Increased vascularity was observed. Biopsy was recommended. There was also evidence of a prominent lymph node in the left axillary region measuring 1.3 x 0.9 x 0.4 cm. Biopsy was recommended. Underwent biopsy on 06/16/2021. Ultrasound-guided biopsy was obtained of the left axillary enlarged lymph node with clip marking. The left breast mass was also biopsied using a 14-gauge biopsy needle with several passes and clipping. The right breast was also imaged with ultrasound and 2 masses were identified. Under ultrasound guidance, both of these masses were biopsied and clips were placed into each of them. Pathology: -Core biopsy of the RIGHT breast mass at the 2 o'clock position demonstrated invasive ductal carcinoma, nuclear grade 1. -Core biopsy of the RIGHT breast mass at 2 o'clock position also revealed fragments of benign breast tissue with fibrosis and focal minimal intraductal hyperplasia without atypia negative for malignancy. -The LEFT breast core biopsy demonstrated invasive ductal carcinoma, nuclear grade 2 as well as ductal carcinoma in situ. -LEFT axillary lymph node core biopsy revealed metastatic carcinoma consistent with breast primary. The comment reads that the left breast core biopsy demonstrating ductal carcinoma revealed DCIS comprising about 70% of the total tumor volume with solid pattern and nuclear grade 2. Necrosis and calcifications were not observed. The entire specimen from the lymph node biopsy demonstrated tumor. No lymph node tissue was identified. It measured 1.2 cm in greatest length and was nuclear grade 2. The cancer specimen from the right breast was ER/CT positive (both greater than 95%, strong intensity) and HER2 negative, IHC 0 The left breast tumor was ER positive (greater than 95%, moderate intensity), CT positive (25%, low to moderate intensity) and HER2 negative with IHC 0. MRI breasts 06/21/2021: Right breast: Breast tissue is scattered fibroglandular densities with minimal background enhancement. At the 2 o'clock position of the breast 4 cm behind the nipple and 5 cm above the nipple there were 2 irregular enhancing masses. The mass closest to the nipple measured 11 x 7 mm in diameter. Slightly above and more medial to this lesion was another smaller lesion measuring approximately 5 mm in diameter. Tissue clip artifact was noted medial to this superior lesion. Also of these lesions appeared to correspond to the ultrasound findings and were highly susp (more content not included)... Normal [facility] Visit Reporton 1 07-30-2023 Urgent Care Visit Report [facility] [address], [address] [place] [address] OFFICE VISIT Date of Service: 05/29/24 MR#: [id number] Acct: [id number] Name: TRISH GILLILANDELLE Rep #: [id number] : 1975 Provider: RICHELLE Moura Age/Sex: 48/F Location: [facility] Status: Signed Intake Vital Signs 04/29/24 15:48 05/29/24 15:26 Height 5 ft 7 in Weight: 232 lb BMI 36.3 BP 124/80 H 126/72 H Blood Pressure Location Rt brachial Lt brachial Position Sitting Sitting Respiration 14 17 Pulse 73 78 Pulse Source Monitor NIBP Temp 98.4 F Temp Source Oral Pulse Oximetry (%) 98 97 Oxygen Delivery Method room air room air 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 Chief Complaint: WC f/u left 4th finger 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: No Is patient in pain?: No Allergies paclitaxel (From Taxol) Allergy (Verified 05/29/24 15:26) Anaphylaxis Penicillins Allergy (Verified 05/29/24 15:) Swelling Is last menstrual period known: No Post menopausal: No Patient : No Have you fallen in the past year?: No PFSH Medical History (Updated 04/29/24 @ 17:14 by Ar PEOPLES, PA) Fracture of distal phalanx of left ring finger Wears glasses Redness of skin Wears contact lenses Cancer Restless legs Non-smoker Leg cramps Bilateral breast cancer Chest wall pain Axillary adenopathy Breast mass Surgical History S/P bilateral oophorectomy History of bilateral mastectomy Hx of wisdom tooth extraction Hx of tonsillectomy History of cholecystectomy Family History Grandmother Breast cancer Diabetes Uterine cancer Ovarian cancer Mother Hypertension Grandfather Diabetes Other Breast mass Social History Smoking Status: Never smoker alcohol intake: never substance use type: does not use what type of physical activity do you participate in: none do you feel safe at home: Yes additional social history: - HPI HPI Chief Complaint: WC f/u left 4th finger Details: TRISH GILLILAND, is a 48 F who presents to the office today for follow-up status post crush injury suffered while at work on 04/17/2024 patient so states. Patient notes on date of injury while performing her normal job duties accidentally crushing the left ring finger distal phalanx with machinery, therefore reported to [facility] ED same day where radiographs revealed a left ring finger DP nondisplaced fracture not involving the DIPJ with spirometer and released with lifting restrictions the same day. Since last evaluation here, she has been working within restrictions and compliant with splint use, noting resolved discomfort to the same and would like to have her work restrictions revised to allow her to work without restrictions. Gbmqv-soby-dtagarmw. She notes no loss of sensation or strength or function throughout the finger. She notes no other complaints at this time. ROS Const Constitutional: No other (As above) Exam Const General: cooperative, healthy appearing and no acute distress Orientation: alert and awake Resp Effort Inspection: normal respiratory effort and able to speak in complete sentences Cardio Rate: regular rate Pulses: radial pulses present Skin General: no rashes or lesions noted Neuro General: patient alert, patient awake and patient oriented x3 Cognition: normal cognition Speech: speech normal Extrem General: normal to inspection, full ROM, capillary refill normal and normal exam except as noted (absent tender to palpation LRF DP) Psych Appearance: grossly normal Mental Status: mental status grossly normal Mood: congruent mood Affect: normal affect Speech and Movement: speech and movement normal Attitude: cooperative Diagnoses Fracture of distal phalanx of left ring finger S62.637J Assessment and Plan Assessment and Plan (1) Fracture of distal phalanx of left ring finger: Status: Acute Plan: Released without restrictions at this time as noted on today's [employer] 14. Follow-up with the [facility] on an as-needed basis only. Patient states acknowledging understanding all the above. Coding Level of Care Code Off vis,est,level 2 Clinical Quality Measures Falls Risk Screening/Assistive Devices Have you fallen in the past year?: No 05/29/24 1600 Date Ar Alexander Signature: Date (if applicable) CC: Normal [facility] Visit Reporton 1 07-16-2023 Urgent Care Visit Report [facility] [address], [address] [place] [address] OFFICE VISIT Date of Service: 05/15/24 MR#: [id number] Acct: [id number] Name: TRISH GILLILAND Rep #: [id number] : 1975 Provider: RICHELLE Moura Age/Sex: 48/F Location: [facility] Status: Signed Intake Vital Signs 04/29/24 15:48 05/15/24 15:26 Height 5 ft 7 in Weight: 232 lb BMI 36.3 BP 124/80 H 118/72 Blood Pressure Location Rt brachial Rt brachial Position Sitting Sitting Respiration 14 12 Pulse 73 91 Pulse Source Monitor NIBP Temp 98.2 F Temp Source Oral Pulse Oximetry (%) 98 87 Oxygen Delivery Method room air room air 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 [facility] Medical History (Updated 04/29/24 @ 17:14 by Ar PEOPLES, RICHELLE) Fracture of distal phalanx of left ring finger Wears glasses Redness of skin Wears contact lenses Cancer Restless legs Non-smoker Leg cramps Bilateral breast cancer Chest wall pain Axillary adenopathy Breast mass Surgical History S/P bilateral oophorectomy History of bilateral mastectomy Hx of wisdom tooth extraction Hx of tonsillectomy History of cholecystectomy Family History Grandmother Breast cancer Diabetes Uterine cancer Ovarian cancer Mother Hypertension Grandfather Diabetes Other Breast mass Social History Smoking Status: Never smoker alcohol intake: never substance use type: does not use what type of physical activity do you participate in: none do you feel safe at home: Yes additional social history: - HPI HPI Chief Complaint: 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 Patient notes on date of injury while performing her normal job duties accidentally crushing the left ring finger distal phalanx with machinery, therefore reported to [facility] ED same day where radiographs revealed a left ring finger DP nondisplaced fracture not involving the DIPJ with spirometer and released with lifting restrictions the same day. Since last evaluation here, she has been working with restrictions and compliant with splint use, noting nearly resolved discomfort to the same and would like to have her work restrictions revised to allow her to do more as result. Orswr-hfsq-iyaisckd. She notes no loss of sensation or strength or function throughout the finger. She notes no other complaints at this time. ROS Const Constitutional: No other (As above) Exam Const General: cooperative, healthy appearing and no acute distress Orientation: alert and awake Resp Effort Inspection: normal respiratory effort and able to speak in complete sentences Cardio Rate: regular rate Pulses: radial pulses present Skin General: no rashes or lesions noted Neuro General: patient alert, patient awake and patient oriented x3 Cognition: normal cognition Speech: speech normal Extrem General: normal to inspection, full ROM, capillary refill normal and normal exam except as noted (trace to absent tender to palpation LRF DP) Psych Appearance: grossly normal Mental Status: mental status grossly normal Mood: congruent mood Affect: normal affect Speech and Movement: speech and movement normal Attitude: cooperative Coding Level of Care Code Off vis,new,level 2 Diagnoses Fracture of distal phalanx of left ring finger S62.635A Assessment and Plan Assessment and Plan (1) Fracture of distal phalanx of left ring finger: Status: Acute Plan: See revised work restrictions (05/15-), then no restrictions (05/29/2024) as noted on today's [employer] 14. Supportive measures as instructed today. Follow-up with the [facility] clinic in approximately 2 weeks for reassessment, sooner should symptoms only worsen or any other concerns develop; anticipate release then* Patient states acknowledging understanding all the above. Coding Level of Care Code Off vis,est,level 3 Clinical Quality Measures Falls Risk Screening/Assistive D (more content not included)... Normal [facility] Urgent Care Visit Reporton 1 06-29-2023 Urgent Care Visit Report [facility] [address], [address] [place] [address] OFFICE VISIT Date of Service: 04/29/24 MR#: [id number] Acct: [id number] Name: TRISH GILLILAND Rep #: [id number] : 1975 Provider: RICHELLE Moura Age/Sex: 48/F Location: [facility] Status: Signed Intake Vital Signs 04/17/24 13:11 04/29/24 15:48 Height 5 ft 7 in 5 ft 7 in Weight: 232 lb 232 lb BMI 36.3 36.3 BP 125/90 H 124/80 H Blood Pressure Location Rt brachial Position Sitting Respiration 16 14 Pulse 88 73 Pulse Source Monitor Temp 98 F Temp Source Oral Pulse Oximetry (%) 98 98 Oxygen Delivery Method room air Intake Visit Reasons: WC f/u index finger 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: No Is patient in pain?: Yes (L index finger) Pain scale (1-10): 5 Allergies paclitaxel (From Taxol) Allergy (Verified 04/29/24 15:43) Anaphylaxis Penicillins Allergy (Verified 04/29/24 15:43) Swelling Medications ???Medication ???Instructions ???Recorded ???Confirmed ???Type biotin 1 mg capsule 1 mg PO DAILY 02/16/22 04/29/24 History calcium phosphate,dibasic 77 1 tab PO DAILY 02/16/22 04/29/24 History mg-vitamin D3 400 unit tablet cholecalciferol (vitamin D3) 25 25 mcg PO DAILY 06/30/22 04/29/24 History mcg (1,000 unit) capsule Nurse's Note: L index finger, has some throbbing which made her nauseated. Is on light duty at work, wants to know how much longer she needs these restrictions. [facility] Medical History (Updated 04/29/24 @ 17:14 by Ar PEOPLES PA) Fracture of distal phalanx of left ring finger Wears glasses Redness of skin Wears contact lenses Cancer Restless legs Non-smoker Leg cramps Bilateral breast cancer Chest wall pain Axillary adenopathy Breast mass Surgical History S/P bilateral oophorectomy History of bilateral mastectomy Hx of wisdom tooth extraction Hx of tonsillectomy History of cholecystectomy Family History Grandmother Breast cancer Diabetes Uterine cancer Ovarian cancer Mother Hypertension Grandfather Diabetes Other Breast mass Social History Smoking Status: Never smoker alcohol intake: never substance use type: does not use what type of physical activity do you participate in: none do you feel safe at home: Yes additional social history: - HPI HPI Details: TRISH GILLILAND, is a 48 F who presents to the office today for follow-up status post crush injury suffered while at work on 04/17/2024 patient so states. Patient notes on date of injury while performing her normal job duties accidentally crushing the left ring finger distal phalanx with machinery, therefore reported to [facility] ED same day where radiographs revealed a left ring finger DP nondisplaced fracture not involving the DIPJ with spirometer and released with lifting restrictions the same day. Since the date of the injury she has been working with restrictions and compliant with splint use, noting slight decrease in discomfort to the same. Dohey-bhig-cbtyxmsk. She notes no loss of sensation or strength or function throughout the finger. She notes no other complaints at this time. ROS Const Constitutional: No other (As above) Exam Const General: cooperative, healthy appearing and no acute distress Orientation: alert and awake Resp Effort Inspection: normal respiratory effort and able to speak in complete sentences Cardio Rate: regular rate Pulses: radial pulses present Skin General: no rashes or lesions noted Neuro General: patient alert, patient awake and patient oriented x3 Cognition: normal cognition Speech: speech normal Extrem General: normal to inspection, full ROM, capillary refill normal and normal exam except as noted (tender to palpation LRF DP) Psych Appearance: grossly normal Mental Status: mental status grossly normal Mood: congruent mood Affect: normal affect Speech and Movement: speech and movement normal Attitude: cooperative Coding Level of Care Code Off vis,new,level 2 Diagnoses Fracture of distal phalanx of left ring finger S62.635A Assessment and Plan Assessment and Plan (1) Fracture of distal phalanx of left ring finger: Status: Acute Plan: See revised work restrictions as noted on today's [employer] 14. Supportive measures as instructed today. Follow-up with the [facility] clinic in approximately 2 weeks for reassessment, sooner should symptoms only worsen or any other concerns develop. Patient states acknowledging understanding all the above. This note was generated with tribr dictation software. It may contain incorrect words, spel (more content not included)... Normal [facility] Office Visit Reporton 2023 Office Visit Report [facility] [address] 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 Chief Complaint: weight managment Allergies paclitaxel (From Taxol) Allergy (Verified 04/17/24 13:14) Anaphylaxis Penicillins Allergy (Verified 04/17/24 13:14) Swelling Office Procedures [facility] Billing Sheet Testing Breath Alcohol in [facility]: No Post-Accident Non-DOT Breath Alcohol Test: Yes Post-Accident NON-DOT Drug Screen in [facility]: Yes 04/22/24 0811 Date Ar Alexander Signature: Date (if applicable) CC: [facility] 12 Lead EKGon 04-17-2024 12 Lead EKG [facility] [address] [place] [address] 12 Lead EKG 04/17/24 1402 MR#: [id number] Acct: [id number] Name: TRISH GILLILAND Rep #: [id number] : 1975 48 From: Mikal Wyatt MD Attending Dr: Status: DEP ER Ordering Dr: Barry Guillen MD Date: 04/17/24 Location: ED Sex: F C Admitted: Test Reason : SMASHED FINGER/PASS OUT Blood Pressure : */* mmHG Vent. Rate : 82 BPM Atrial Rate : 82 BPM P-R Int : 154 ms QRS Dur : 92 ms QT Int : 362 ms P-R-T Axes : 66 -15 45 degrees QTcB Int : 422 ms Normal sinus rhythm Normal ECG Confirmed by Mikal Wyatt ([id number]), newspaper managing editor NANCIE ANNA ([id number]) on 04/18/2024 9:56:45 AM Referred By: Confirmed By: Mikal Wyatt 04/18/24 0956 Date Mikal Wyatt MD CC: Dr. Barry Guillen MD; Dr. Jeanine Caceres MD Signed [facility] Emergency Department Summary on 04-17-2024 Emergency Department Summary [facility] Medical Records Department [address] [place] [address] Emergency Department Summary 04/17/24 MR#: [id number] Acct: [id number] Name: TRISH GILLILAND Rep #: [id number] : 1975 48 From: Barry Guillen MD PCP: Dr. Jeanine Caceres MD Status:DEP ER Location: ED HPI History of Present Illness Chief Complaint: Trauma Informant: patient and EMS Narrative Narrative: 48-year-old female had a work related injury. 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 It was stuck, and so when she turned it to try to loosen it it fell, catching her glove in her finger, crushing it on surface below. She is right-hand dominant and injured the left ring finger. She tried to put ice on it, it made the pain acutely severe, radiating up her forearm, and made her feel nauseated and then she had a brief syncopal episode at which point they called 911. She recovered uneventfully and did not have a fall or another injury. She feels fine now except for the pain in her finger. [facility] Medical History Wears glasses Redness of skin Wears contact lenses Cancer Restless legs Non-smoker Leg cramps Bilateral breast cancer Chest wall pain Axillary adenopathy Breast mass Home Medications ???Medication ???Instructions ???Recorded ???Last Taken ???Type biotin 1 mg capsule 1 mg PO DAILY 02/16/22 Unknown History calcium phosphate,dibasic 77 1 tab PO DAILY 02/16/22 Unknown History mg-vitamin D3 400 unit tablet cholecalciferol (vitamin D3) 25 25 mcg PO DAILY 06/30/22 Unknown History mcg (1,000 unit) capsule dicyclomine 20 mg tablet 20 mg PO TID PRN abdominal pain 04/06/23 Unknown Rx #20 tabs ondansetron 4 mg disintegrating 4 mg PO Q8H PRN PRN Nausea #10 tabs 04/06/23 Unknown Rx tablet Allergy/AdvReac Type Severity Reaction Status Date / Time paclitaxel (From Taxol) Allergy Anaphylaxis Verified 04/17/24 13:14 Penicillins Allergy Swelling Verified 04/17/24 13:14 Family History Grandmother Breast cancer Diabetes Uterine cancer Ovarian cancer Mother Hypertension Grandfather Diabetes Other Breast mass Surgical History S/P bilateral oophorectomy History of bilateral mastectomy Hx of wisdom tooth extraction Hx of tonsillectomy History of cholecystectomy Social History Smoking Status: Never smoker alcohol intake: never substance use type: does not use what type of physical activity do you participate in: none do you feel safe at home: Yes additional social history: - ROS ROS ED Constitutional Constitutional ED: Denies chills or fever(s) Cardiovascular Cardiovascular: Reports syncope; Denies chest pain or palpitations Respiratory/Chest Respiratory/Chest: Denies dyspnea Musculoskeletal Musculoskeletal: Reports extremity pain; Denies neck pain Integumentary Denies Abrasions, rash or wounds Neurologic Neurologic: Denies paresthesias or weakness EXAM Physical Exam Const Vital Signs: 04/17/24 13:11 Temperature 98 F Temperature Source Oral Pulse Rate 88 Respiratory Rate 16 Blood Pressure 125/90 H Blood Pressure Mean 101 Pulse Ox 98 Oxygen Delivery Method Room Air Positive well nourished and well developed General Appearance ED: well developed and NAD Neck full ROM and supple Chest Wall inspection of chest normal and palpation of chest normal Resp normal respiratory effort and clear to auscultation bilaterally Cardio regular rhythm and no murmurs Rate: regular rate GI normal to inspection, nondistended, normoactive bowel sounds Back/Spine normal ROM and normal to inspection Extremity Extremity Narrative: Swelling, ecchymosis, and tenderness to the pad of the left ring finger. No subungual hematoma. Limited range of motion due to pain and swelling but able to flex the FDS and FDP without difficulty. Extensor mechanism intact as well. No lacerations or bleeding. No other injuries to the hand. Neuro oriented x3, no focal motor deficits and no sensory deficits noted Sensorium / Orientation: alert Psych mental status grossly normal and thought process normal Skin no wounds Rashes: no rashes MDM MDM MDM Narrative Medical decision making narrative: Three-view x-rays of the left hand shows a nondisplaced longitudinal fracture of the distal phalanx of the left ring finger. No other injuries. This is on my interpretation. Given the patient a [place], we did obtain an EKG, it is normal in my interpretation, this is all consistent with a vagal reaction (more content not included)... Normal [facility] Hand Min 3 Viewson 4 Hand Min 3 Views [facility] Imaging Services [address] [place], [place] [address] Hand Min 3 Views MR#: [id number] Acct: [id number] Name: MELISSA GILLILANDCIFrank TAFOYA Rep #: [id number] : 1975 F 48 From: Leonard garcia MD PCP: Dr. Jeanine Caceres MD Status: PRE ER Study: Hand Min 3 Views Date of Exam: 04/17/24 Exam# [id number] Ordering Dr: Bradley Kohli [id number] STUDY: X-RAY - LEFT HAND REASON FOR EXAM: Female, 48 years old. Injury to the distal phalanx of the fourth digit. TECHNIQUE: 3 view(s) of the hand. COMPARISON: None. FINDINGS: Normal radiocarpal articulation. Normal distal radioulnar joint. Normal visualized carpal bones. Normal carpal articulations Normal carpometacarpal articulation of the thumb. Normal second through fifth carpometacarpal joints. Normal metacarpi. Normal metacarpophalangeal joint of the thumb. Normal interphalangeal joint of the thumb. Normal proximal and distal phalanges of the thumb. Normal metacarpophalangeal joints of the second through fifth fingers. Normal proximal and distal interphalangeal joints of the second through fifth fingers. Nondisplaced linear fracture of the distal phalanx of the fourth digit. Soft tissue swelling. RAD/Hand Min 3 Views IMPRESSION: Nondisplaced linear fracture of the distal phalanx of the fourth digit with overlying soft tissue swelling. Electronically Signed: Leonard Morse MD at 13:37 EST Reading Location ID and State: [address] [place] [address] , Service support , CC: Dr. Jeanine Caceres MD; ED PHYSICIAN PROVIDER [employer] Division Manager: Signed Normal [facility] 12 Lead EKGon 01-05-2024 12 Lead EKG [facility] Cardiovascular Services [address] [place] [address] 12 Lead EKG 01/05/24 1346 MR#: [id number] Acct: [id number] Name: TRISH GILLILAND Rep #: [id number] : 1975 48 From: Ayala Queen MD Attending Dr: Status: DEP ER Ordering Dr: Elle Harding Date: 01/05/24 Location: ED Sex: F C Admitted: Test Reason : CP Blood Pressure : / mmHG Vent. Rate : 087 BPM Atrial Rate : 087 BPM P-R Int : 150 ms QRS Dur : 096 ms QT Int : 364 ms P-R-T Axes : 054 003 056 degrees QTc Int : 438 ms Normal sinus rhythm with sinus arrhythmia Incomplete right bundle branch block Borderline ECG Confirmed by JOEY NAVAS, GVOIND ([id number]), newspaper managing editor SUZI MCGOWAN ([id number]) on 01/09/2024 1:58:54 PM Referred By: ELLIE Confirmed By:BARBARA QUEEN MD 01/09/24 1358 Date Ayala Queen MD CC: Dr. Barry Guillen MD; Dr. Jeanine Caceres MD; RICHELLE Abel Signed Normal [facility] Basic Metabolic Profile (BMP )on 01-05-2024 BUN/CRE 23.2 RATIO High 10-20 [facility] Comment on above: Order Comment: 1 Y Performed By: #### L 501.5425, L500.2500, L100.0100 #### [facility] Laboratory [address] [place], [address] CA,Total 9.1 mg/dL Normal 8.5-10.1 [facility] Comment on above: Order Comment: 1 Y Performed By: #### L 501.5425, L500.2500, L100.0100 #### [facility] [address] [place], [address] Chloride [Moles/Vol] 107 mmol/L Normal 98-107 [facility] Comment on above: Order Comment: 1 Y Performed By: #### L 501.5425, L500.2500, L100.0100 #### [facility] [address] [place], [address] CO2 [Moles/Vol] 27.0 mmol/L Normal 21.0-32.0 [facility] Comment on above: Order Comment: 1 Y Performed By: #### L 501.5425, L500.2500, L100.0100 #### [facility] [address] [place], [address] Creatinine [Mass/Vol] 0.69 mg/dL Normal 0.55-1.02 [facility] Comment on above: Order Comment: 1 Y Result Comment: The validity of the calculated GFR GFRAA in patients over 70 years has not been determined. Clinical correlation is essential. Performed By: #### L 501.5425, L500.2500, L100.0100 #### [facility] [address] [place], [address] ECRCL 127.11 ml/min Normal [facility] Comment on above: Order Comment: 1 Y Performed By: #### L 501.5425, L500.2500, L100.0100 #### [facility] [address] [place], [address] EST GFR - AA 116 mL/min Normal >60 [facility] Comment on above: Order Comment: 1 Y Result Comment: Afri can Spanish GFR Calc Performed By: #### L 501.5425, L500.2500, L100.0100 #### [facility] [address] [place], [address] GAP 6 Normal 5-15 [facility] Comment on above: Order Comment: 1 Y Performed By: #### L 501.5425, L500.2500, L100.0100 #### [facility] [address] [place], [address] GFR/1.73 sq M.predicted among non-blacks MDRD (S/P/Bld) [Vol rate/Area] 96 mL/min/{1.73_m2} Normal >60 [facility] Comment on above: Order Comment: 1 Y Result Comment: Non- GFR Calc Performed By: #### L 501.5425, L500.2500, L100.0100 #### [facility] [address] [place], [address] Glucose [Mass/Vol] 116 mg/dL High 74-106 [facility] Comment on above: Order Comment: 1 Y Result Comment: Fast ing Glucose result from 100 to 125 mg/dL suggests IMPAIRED HOMEOSTASIS per A.D.A. criteria. Performed By: #### L 501.5425, L500.2500, L100.0100 #### [facility] [address] [place], [address] Potassium [Moles/Vol] 3.7 mmol/L Normal 3.5-5.1 [facility] Comment on above: Order Comment: 1 Y Performed By: #### L 501.5425, L500.2500, L100.0100 #### [facility] [address] [place], [address] Sodium [Moles/Vol] 140 mmol/L Normal 136-145 [facility] Comment on above: Order Comment: 1 Y Performed By: #### L 501.5425, L500.2500, L100.0100 #### [facility] [address] [place], [address] Urea nitrogen [Mass/Vol] 16 mg/dL Normal 7-18 [facility] Comment on above: Order Comment: 1 Y Performed By: #### L 501.5425, L500.2500, L100.0100 #### [facility] [address] [place], [address] CBC W/Diff, Automatedon 07-2 -2023 Absolute Lymph 2.24 X10 3/uL Normal 0.83-4.51 [facility] Comment on above: Performed By: #### L 501.5425, L500.2500, L100.0100 #### [facility] [address] [place], [address] Absolute Neut 3.8 X10 3/uL Normal 2.0-7.7 [facility] Comment on above: Performed By: #### L 501.5425, L500.2500, L100.0100 #### [facility] [address] [place], [address] Basophils/100 WBC (Bld) 0.4 % Normal 0-1 [facility] Comment on above: Performed By: #### L 501.5425, L500.2500, L100.0100 #### [facility] [address] [place], [address] Eosinophils/100 WBC (Bld) 3.8 % Normal 0-5 [facility] Comment on above: Performed By: #### L 501.5425, L500.2500, L100.0100 #### [facility] [address] [place], [address] Erythrocyte distribution width (RBC) [Ratio] 12.2 % Normal 11.6-14.6 [facility] Comment on above: Performed By: #### L 501.5425, L500.2500, L100.0100 #### [facility] [address] [place], [address] Hematocrit (Bld) [Volume fraction] 40.0 % Normal 37-47 [facility] Comment on above: Performed By: #### L 501.5425, L500.2500, L100.0100 #### [facility] [address] [place], [address] Hemoglobin (Bld) [Mass/Vol] 13.1 g/dL Normal 12.0-15.0 [facility] Comment on above: Performed By: #### L 501.5425, L500.2500, L100.0100 #### [facility] [address] [place], [address] IG% 0.300 Normal 0.0-0.9 [facility] Comment on above: Result Comment: IG% - Immature Granulocytes (promyelocytes, myelocytes and metamyelocytes) > 1% indicates that a LEFT SHIFT is Present. Performed By: #### L 501.5425, L500.2500, L100.0100 #### [facility] [address] [place], [address] Lymphocytes/100 WBC (Bld) 32.9 % Normal 19-41 [facility] Comment on above: Performed By: #### L 501.5425, L500.2500, L100.0100 #### [facility] [address] [place], [address] MCH (RBC) [Entitic mass] 29.2 pg Normal 27.0-32.0 [facility] Comment on above: Performed By: #### L 501.5425, L500.2500, L100.0100 #### [facility] [address] [place], [address] MCHC (RBC) [Mass/Vol] 32.8 g/dL Normal 32-36 [facility] Comment on above: Performed By: #### L 501.5425, L500.2500, L100.0100 #### [facility] [address] [place], [address] MCV (RBC) [Entitic vol] 89.1 fL Normal 81-99 [facility] Comment on above: Performed By: #### L 501.5425, L500.2500, L100.0100 #### [facility] [address] [place], [address] Monocytes/100 WBC (Bld) 7.0 % Normal 0-10 [facility] Comment on above: Performed By: #### L 501.5425, L500.2500, L100.0100 #### [facility] [address] [place], [address] Neutrophils/100 WBC (Bld) 55.6 % Normal 47-70 [facility] Comment on above: Performed By: #### L 501.5425, L500.2500, L100.0100 #### [facility] [address] [place], [address] Nucleated RBC (Bld) [#/Vol] 0 10*3/uL Normal 0-5 [facility] Comment on above: Performed By: #### L 501.5425, L500.2500, L100.0100 #### [facility] [address] [place], [address] Platelet mean volume (Bld) [Entitic vol] 9.0 fL Normal 6.2-12.0 [facility] Comment on above: Performed By: #### L 501.5425, L500.2500, L100.0100 #### [facility] [address] [place], [address] Platelets (Bld) [#/Vol] 320 10*3/uL Normal 150-450 [facility] Comment on above: Performed By: #### L 501.5425, L500.2500, L100.0100 #### [facility] [address] [place], [address] RBC (Bld) [#/Vol] 4.49 10*6/uL Normal 4.2-5.[address] [facility] Comment on above: Performed By: #### L 501.5425, L500.2500, L100.0100 #### [facility] [address] [place], [address] RDW SD 40.3 fl Normal 35.1-43.9 [facility] Comment on above: Performed By: #### L 501.5425, L500.2500, L100.0100 #### [facility] [address] [place], [address] WBC (Bld) [#/Vol] 6.8 10*3/uL Normal 4.4-11.0 [facility] Comment on above: Performed By: #### L 501.5425, L500.2500, L100.0100 #### [facility] [address] [place], [address] Chest PA and Lateralon 01-04 Chest PA and Lateral [facility] Imaging Services [address] [place] [address] Chest PA and Lateral MR#: [id number] Acct: [id number] Name: TRISH GILLILAND Rep #: [id number] : 1975 F 48 From: Barry Baltazar MD PCP: Dr. Jeanine Caceres MD Status: [facility] ER Study: Chest PA and Lateral Date of Exam: 01/05/24 Exam# [id number] Ordering Dr: Elle Harding [id number] STUDY: X-RAY CHEST REASON FOR EXAM: Female, 48 years old. Chest pain TECHNIQUE: PA and lateral views of the chest. COMPARISON: None. FINDINGS: There are surgical clips in the left upper chest. The lungs are clear and expanded. There is no demonstrated pleural abnormality. Normal size heart. There are calcified left hilar lymph nodes. Normal visualized pulmonary arteries. Normal visualized aortic arch and descending thoracic aorta. Normal visualized thoracic spine. Normal visualized ribs, clavicles, and shoulders. There is no demonstrated abnormality of the visualized soft tissue structures of the upper abdomen. RAD/Chest PA and Lateral IMPRESSION: No acute cardiopulmonary disease. Electronically Signed: Barry Baltazar MD at 15:00 EDT Reading Location ID and State: [facility] / [place] , Service support , CC: Dr. Jeanine Caceres MD; RICHELLE Abel [employer] Division Manager: Signed Normal [facility] Emergency Department Summary on 01-05-2024 Emergency Department Summary [facility] Medical Records Department [address] [place] [address] Emergency Department Summary 01/05/24 MR#: [id number] Acct: [id number] Name: TRISH GILLILAND Rep #: [id number] : 1975 48 From: Elle PEOPLES PCP: Dr. Jeanine Caceres MD Status:DEP ER Location: ED HPI History of Present Illness Chief Complaint: Chest Pain Narrative Narrative: Patient presenting today due to left-sided chest pain she has had intermittently since yesterday. She describes the pain as a burning sensation that is worse with certain movements of her torso and upper extremities. She does lift a lot of heavy objects while working. The pain occasionally radiates to her left shoulder blade. She has had occasional feelings of tightness in her bilateral hands and tingling to her left arm that started this afternoon. She did take a nap this afternoon and woke up with heartburn and nausea, prompting her to come in for evaluation. She denies any cardiac history or history of blood clots/recent surgery/travel/immobili zation. She has had no fevers, chills, shortness of breath, abdominal pain, and vomiting. PMH includes breast cancer with bilateral mastectomy, her cancer is in remission. [facility] Medical History Wears glasses Redness of skin Wears contact lenses Cancer Restless legs Non-smoker Leg cramps Bilateral breast cancer Chest wall pain Axillary adenopathy Breast mass Home Medications ???Medication ???Instructions ???Recorded ???Last Taken ???Type biotin 1 mg capsule 1 mg PO DAILY 02/16/22 Unknown History calcium phosphate,dibasic 77 1 tab PO DAILY 02/16/22 Unknown History mg-vitamin D3 400 unit tablet cholecalciferol (vitamin D3) 25 25 mcg PO DAILY 06/30/22 Unknown History mcg (1,000 unit) capsule dicyclomine 20 mg tablet 20 mg PO TID PRN abdominal pain 04/06/23 Unknown Rx #20 tabs ondansetron 4 mg disintegrating 4 mg PO Q8H PRN PRN Nausea #10 tabs 04/06/23 Unknown Rx tablet Allergy/AdvReac Type Severity Reaction Status Date / Time paclitaxel (From Taxol) Allergy Anaphylaxis Verified 01/05/24 13:45 Penicillins Allergy Swelling Verified 01/05/24 13:45 Family History Grandmother Breast cancer Diabetes Uterine cancer Ovarian cancer Mother Hypertension Grandfather Diabetes Other Breast mass Surgical History S/P bilateral oophorectomy History of bilateral mastectomy Hx of wisdom tooth extraction Hx of tonsillectomy History of cholecystectomy Social History Smoking Status: Never smoker alcohol intake: never substance use type: does not use what type of physical activity do you participate in: none do you feel safe at home: Yes additional social history: - ROS ROS ED Constitutional Constitutional ED: Denies chills or fever(s) Cardiovascular Cardiovascular: Reports chest pain; Denies palpitations Respiratory/Chest Respiratory/Chest: Denies cough or dyspnea Gastrointestinal Gastrointestinal: Denies abdominal pain, nausea or vomiting Musculoskeletal Musculoskeletal: Denies arthralgias or myalgias Integumentary Denies rash Neurologic Neurologic: Denies weakness EXAM Physical Exam Const Vital Signs: 01/05/24 13:42 01/05/24 14:00 01/05/24 14:41 Temperature 98.3 F Temperature Source Oral Pulse Rate 95 75 Respiratory Rate 15 16 Respiratory Effort Normal Blood Pressure 157/80 H 129/77 H Blood Pressure Mean 105 94 Pulse Ox 99 98 Oxygen Delivery Method Room Air Room Air Oxygen Flow Rate (L/min) 01/05/24 15:00 01/05/24 16:00 01/05/24 17:26 Temperature 97.6 F L Temperature Source Pulse Rate 79 97 64 Respiratory Rate 21 H 22 H 18 Respiratory Effort Blood Pressure 121/79 H 105/62 134/78 H Blood Pressure Mean 93 76 96 Pulse Ox 97 93 99 Oxygen Delivery Method Room Air Nasal Cannula Oxygen Flow Rate (L/min) 2 Positive well nourished, well developed and no apparent distress General Appearance ED: well developed HEENT Reports normocephalic and head/scalp atraumatic Mouth ED: Yes moist mucous membranes normal Eyes PERRL and EOMs intact bilaterally Neck full ROM and supple Chest Wall inspection of chest normal Chest Narrative: Left-sided chest tenderness to palpation. Resp normal respiratory effort and clear to auscultation bilaterally Cardio regular rate and regular rhythm GI soft to palpation, non-tender, non-distended and no masses Back/Spine normal ROM and normal to inspection Extremity normal to inspection and full ROM Neuro oriented (more content not included)... Normal [facility] L501.4020on 01-05-2024 TROPONIN-I HS 4 pg/mL Normal 3.0-54.0 [facility] Comment on above: Order Comment: 'TROP ' Serial specimen #1, #2 or #3: 2 Result Comment: Plea se Note: New Test Units and Gender Specific Reference Ranges. For more information see Policy Stat Procedure [place] High Sensitivity Troponin (TNIH) and attachments. Performed By: #### L 501.4020 #### [facility] [address] [place], [place], [id number] L501.5425on 01-05-2024 TROPONIN-I HS 6 pg/mL Normal 3.0-54.0 [facility] Comment on above: Order Comment: 1 Y Result Comment: Plea se Note: New Test Units and Gender Specific Reference Ranges. For more information see Policy Stat Procedure [place] High Sensitivity Troponin (TNIH) and attachments. Performed By: #### L 501.5425, L500.2500, L100.0100 #### [facility] [address] [place], [address] Absolute lymphocyte countOrd ered By: Lois George on 04-06-2023 Lymphocytes Auto (Unsp spec) [#/Vol] 1.62 10*3/uL 0.83-4.51 [facility] Basophil percentageOrdered B y: Lois George on 04-06-2023 Basophil percentage 0-5 SEEN /hpf 0-5 [facility] Basophils/100 WBC (Bld) 0.2 % 0-1 [facility] Bilirubin [Mass/Vol] 0.30 mg/dL 0.20-1.00 [facility] Comment on above: For patients on eltr ombopag therapy, use of Dimension [place] TBIL is not recommended. Chloride [Moles/Vol] 106 mmol/L 98-107 [facility] Eosinophils/100 WBC (Bld) 4.1 % 0-5 [facility] Glucose [Mass/Vol] 112 mg/dL 74-106 [facility] Comment on above: Fasting Glucose resu lt from 100 to 125 mg/dL suggests IMPAIRED HOMEOSTASIS per A.D.A. criteria. Neutrophils (Bld) [#/Vol] 6.7 10*3/uL 2.0-7.7 [facility] Neutrophils/100 WBC (Bld) 71.3 % 47-70 [facility] Potassium [Moles/Vol] 3.7 mmol/L 3.5-5.1 [facility] Protein [Mass/Vol] 7.2 g/dL 6.4-8.2 [facility] Sodium [Moles/Vol] 140 mmol/L 136-145 [facility] WBC (Bld) [#/Vol] 9.4 10*3/uL 4.4-11.0 [facility] Bilirubin Test strip Ql (U)O rdered By: Lois George on 04-06-2023 Bilirubin Ql (U) Negative Negative [facility] Blood erythrocytes count (nu mber/volume)Ordered By: Lois George on 04-06-2023 RBC (Bld) [#/Vol] 4.43 10*6/uL 4.2-5.[address] [facility] Blood hemoglobin measurement (mass/volume)Ordered By: Lois George on 04-06-2023 Hemoglobin (Bld) [Mass/Vol] 12.8 g/dL 12.0-15.0 [facility] Blood lymphocytes/100 leukoc ytesOrdered By: Lois George on 04-06-2023 Lymphocytes/100 WBC (Bld) 17.2 % 19-41 [facility] Blood monocytes/100 leukocyt esOrdered By: Lois George on 04-06-2023 Monocytes/100 WBC (Bld) 6.9 % 0-10 [facility] Blood platelet mean volumeOr dered By: Lois George on 04-06-2023 Platelet mean volume (Bld) [Entitic vol] 8.5 fL 6.2-12.0 [facility] Determination of erythrocyte mean corpuscular volume (MCV)Ordered By: Lois George on 04-06-2023 MCV (RBC) [Entitic vol] 88.7 fL 81-99 [facility] Hematocrit Auto (Bld) [Volum e fraction]Ordered By: Lois George on 04-06-2023 Hematocrit (Bld) [Volume fraction] 39.3 % 37-47 [facility] Ketones Test strip Ql (U)Ord ered By: Lois George on 04-06-2023 Ketones Ql (U) Negative Negative [facility] Laboratory - Chemistry and C hemistry - challengeOrdered By: Lois George on 04-06-2023 ALP [Catalytic activity/Vol] 66 U/L 45-117 [facility] ALT [Catalytic activity/Vol] 66 U/L 13-56 [facility] CO2 [Moles/Vol] 27.0 mmol/L 21.0-32.0 [facility] Globulin (S) [Mass/Vol] 3.6 g/dL 2.2-4.2 [facility] Lipase [Catalytic activity/Vol] 19 U/L - [facility] Comment on above: Please note:LIPASE r evised reference range effective 22. New Lipase methodology. Expected to produce lower values than the previous assay method. NEW Reference Range: 13 - 75 U/L Urea nitrogen/Creatinine [Mass ratio] 20.0 mg/mg 10- [facility] Laboratory - Hematology and Cell countsOrdered By: Lois George on 04-06-2023 Erythrocyte distribution width (RBC) [Entitic vol] 40.4 fL 35.1-43.9 [facility] Erythrocyte distribution width (RBC) [Ratio] 12.3 % 11.6-14.6 [facility] Immature granulocytes/100 WBC (Bld) 0.300 % 0.0-0.9 [facility] Comment on above: IG% - Immature Granu locytes (promyelocytes, myelocytes and metamyelocytes) > 1% indicates that a LEFT SHIFT is Present. MCH (RBC) [Entitic mass] 28.9 pg 27.0-32.0 [facility] Nucleated RBC/100 WBC (Bld) [Ratio] 0 % 0-5 [facility] MCHC Auto (RBC) [Mass/Vol]Or dered By: Lois George on 04-06-2023 MCHC (RBC) [Mass/Vol] 32.6 g/dL 32-36 [facility] Mucus LM Ql (Urine sed)Order ed By: Lois George on 04-06-2023 Mucus Ql (Urine sed) 0 SEEN /hpf [facility] Nitrite Test strip Ql (U)Ord ered By: Lois George on 04-06-2023 Nitrite Ql (U) Negative Negative [facility] No Panel InformationOrdered By: Lois George on 04-06-2023 Estimated Creatinine Clearance Calc 89.21 ml/min [facility] Estimated GFR (MDRD) Amer 106 mL/min >60 [facility] Comment on above: GFR Calc Estimated GFR (MDRD) Non-Af Amer 87 mL/min >60 [facility] Comment on above: Non- GFR Calc Platelets bldOrdered By: Ann George on 04-06-2023 Platelets (Bld) [#/Vol] 274 10*3/uL 150-450 [facility] Protein Test strip Ql (U)Ord ered By: Lois George on 04-06-2023 Protein Ql (U) Negative Negative [facility] Serum or plasma albumin jolly urement (mass/volume)Ordered By: Lois George on 04-06-2023 Albumin [Mass/Vol] 3.6 g/dL 3.2-5.0 [facility] Serum or plasma albumin/glob ulin mass ratioOrdered By: Lois George on 04-06-2023 Albumin/Globulin [Mass ratio] 1.0 {ratio} 0.9-2.4 [facility] Serum or plasma calcium jolly urement (mass/volume)Ordered By: Lois George on 04-06-2023 Calcium [Mass/Vol] 9.2 mg/dL 8.5-10.1 [facility] Serum or plasma creatinine m easurement (mass/volume)Ordered By: Lois George on 04-06-2023 Creatinine [Mass/Vol] 0.75 mg/dL 0.55-1.02 [facility] Comment on above: The validity of the calculated GFR & GFRAA in patients over 70 years has not been determined. Clinical correlation is essential. Serum or plasma urea nitroge n measurement (mass/volume)Ordered By: Lois George on 04-06-2023 Urea nitrogen [Mass/Vol] 15 mg/dL 7-18 [facility] Squamous epithelial cells de tection in urine sediment by light microscopyOrdered By: Lois George on 04-06-2023 Epithelial cells.squamous LM Ql (Urine sed) 0 SEEN /hpf 5-10 [facility] Thin prep Papanicolaou smear with manual screeningOrdered By: Lois George on 04-06-2023 Thin prep Papanicolaou smear with manual screening 34 U/L 15-37 [facility] Thin prep Papanicolaou smear with manual screening 7 5-15 [facility] Urine blood detectionOrdered By: Lois George on 04-06-2023 RBC Ql (U) Negative Negative [facility] RBC Ql (U) 0 SEEN /hpf 0-5 [facility] Urine clarityOrdered By: Ann George on 04-06-2023 Clarity (U) Clear Clear [facility] Urine color determinationOrd ered By: Lois George on 04-06-2023 Color (U) Straw Yellow [facility] Urine glucose detectionOrder ed By: Lois George on 04-06-2023 Glucose Ql (U) Normal mg/dl Normal [facility] Urine leukocyte esterase det ection by dipstickOrdered By: Lois George on 04-06-2023 Leukocyte esterase Test strip Ql (U) 100 /ul Negative [facility] Urine pHOrdered By: Lois lange on 04-06-2023 pH (U) 7.0 [pH] 5.0 - 8.0 [facility] Urine sediment bacteria coun t by microscopy (number/high power field)Ordered By: Lois George on 04-06-2023 Bacteria LM.HPF (Urine sed) [#/Area] 0 /[HPF] None Seen [facility] Urine specific gravity measu rementOrdered By: Lois George on 04-06-2023 Specific gravity (U) [Rel density] 1.005 1.002-1.030 [facility] Urobilinogen Auto test strip Ql (U)Ordered By: Lois George on 04-06-2023 Urobilinogen Ql (U) Normal mg/dl Normal [facility] STREP A MOLECULAR (POC)on Procedural Control Valid [place] [facility] Strep A (POCT) Negative Negative [facility] Basophil percentageOrdered B y: Dr. Agosto on 06-30-2022 Cholesterol [Mass/Vol] 241 mg/dL <200 [facility] Comment on above: <200 mg/dL Desirable 200-240 mg/dL Borderline >240 mg/dL High Risk Triglyceride [Mass/Vol] 234 mg/dL <199 [facility] Comment on above: The drugs N-Acetylcy steine and Metamizole may falsely depress this assay.Serum Triglycerides Reference Interval Normal <150 mg/dL Borderline high 150 - 199 mg/dL High 200 - 499 mg/dL Very High > or = 500 mg/dL No Panel InformationOrdered By: Dr. Agosto on 06-30-2022 Thyroid Stimulating Hormone (TSH) 2.51 uIU/mL 0.358-3.74 [facility] Vitamin D 25-Hydroxy 27.8 ng/mL [facility] Comment on above: Vitamin D 25(OH) Sta tus Range Deficiency <20 ng/mL (50nmol/L) Insufficiency 20 - 30 ng/mL (50 - 75 nmol/L) Sufficiency 30 - 100 ng/mL (75 - 250 nmol/L) Toxicity >100 ng/mL (>250 nmol/L) Serum or plasma cholesterol in HDL measurement (mass/volume)Ordered By: Dr. Agosto on 06-30-2022 Cholesterol in HDL [Mass/Vol] 67 mg/dL >40 [facility] Comment on above: The drugs N-Acetylcy steine and Metamizole may falsely depress this assay. Reference Range HDL <40 mg/dL Low HDL Cholesterol HDL >or= 60 mg/dL High HDL Cholesterol Serum or plasma cholesterol in VLDL measurement (mass/volume)Ordered By: Dr. Agosto on 06-30-2022 Cholesterol in VLDL [Mass/Vol] 47 mg/dL 5-40 [facility] Serum or plasma low density lipoprotein (LDL) cholesterol measurement (mass/volume)Ordered By: Dr. Agosto on 06-30-2022 Cholesterol in LDL [Mass/Vol] 127 mg/dL 0-130 [facility] Whole blood hemoglobin A1c/t otal hemoglobin ratio (mass fraction)Ordered By: Dr. Agosto on 06-30-2022 HbA1c (Bld) [Mass fraction] 5.2 % 3.8-5.6 [facility] Comment on above: Normal < 5.7 % Predi abetic 5.7 - 6.4 % Diabetic >or= 6.5 % Please note range changes. Laboratory - Chemistry and C hemistry - challengeOrdered By: Dr. Agosto on 05-20-2022 HCG ( test) Ql (U) Negative [facility] Comment on above: Very dilute urine sp ecimens, as indicated by a low specificgravity, may not contain sales representative printing paper levels of hCG. If is still suspected, a first morning urinespecimen should be collected 48 hours later and tested. Absolute lymphocyte countOrd ered By: Dr. Agosto on 05-17-2022 Lymphocytes Auto (Unsp spec) [#/Vol] 1.04 10*3/uL 0.83-4.51 [facility] Basophil percentageOrdered B y: Dr. Agosto on 05-17-2022 Basophils/100 WBC (Bld) 0.5 % 0-1 [facility] Eosinophils/100 WBC (Bld) 6.5 % 0-5 [facility] Neutrophils (Bld) [#/Vol] 3.8 10*3/uL 2.0-7.7 [facility] Neutrophils/100 WBC (Bld) 64.2 % 47-70 [facility] WBC (Bld) [#/Vol] 6.0 10*3/uL 4.4-11.0 [facility] Blood erythrocytes count (nu mber/volume)Ordered By: Dr. Agosto on 05-17-2022 RBC (Bld) [#/Vol] 4.44 10*6/uL 4.2-5.[address] [facility] Blood hemoglobin measurement (mass/volume)Ordered By: Dr. Agosto on 05-17-2022 Hemoglobin (Bld) [Mass/Vol] 13.0 g/dL 12.0-15.0 [facility] Blood lymphocytes/100 leukoc ytesOrdered By: Dr. Agosto on 05-17-2022 Lymphocytes/100 WBC (Bld) 17.4 % 19-41 [facility] Blood monocytes/100 leukocyt esOrdered By: Dr. Agsoto on 05-17-2022 Monocytes/100 WBC (Bld) 11.1 % 0-10 [facility] Blood platelet mean volumeOr dered By: Dr. Agosto on 05-17-2022 Platelet mean volume (Bld) [Entitic vol] 8.9 fL 6.2-12.0 [facility] Determination of erythrocyte mean corpuscular volume (MCV)Ordered By: Dr. Agosto on 05-17-2022 MCV (RBC) [Entitic vol] 87.6 fL 81-99 [facility] Hematocrit Auto (Bld) [Volum e fraction]Ordered By: Dr. Agosto on 05-17-2022 Hematocrit (Bld) [Volume fraction] 38.9 % 37-47 [facility] Laboratory - Hematology and Cell countsOrdered By: Dr. Agosto on 05-17-2022 Erythrocyte distribution width (RBC) [Entitic vol] 39.4 fL 35.1-43.9 [facility] Erythrocyte distribution width (RBC) [Ratio] 12.2 % 11.6-14.6 [facility] Immature granulocytes/100 WBC (Bld) 0.300 % 0.0-0.9 [facility] Comment on above: IG% - Immature Granu locytes (promyelocytes, myelocytes and metamyelocytes) > 1% indicates that a LEFT SHIFT is Present. MCH (RBC) [Entitic mass] 29.3 pg 27.0-32.0 [facility] Nucleated RBC/100 WBC (Bld) [Ratio] 0 % 0[facility]5 [facility] ([facility] [Mass/Vol]Or dered By: Dr. Agosto on 05-17-2022 MCHC (RBC) [Mass/Vol] 33.4 g/dL 32-36 [facility] Platelets bldOrdered By: Dr. Agosto on 05-17-2022 Platelets (Bld) [#/Vol] 316 10*3/uL 150-450 [facility] DXA-AXIAL SKELETONon 022 [facility] CNTHERAPYon 02-23-2022 CNTHERAPY OT/PT/Speech Visit (AKPTB) TRISH GILLILAND ([id number]) 1975 F Date Time Provider Department 02/23/22 5:15 PM SHANIA TRINH Date Time Provider Department Center 02/23/2022 5:15 PM [id number] TRINH [facility] Reason for Visit: PT Discharge [752] Primary Visit Diagnosis:History of bilateral breast cancer [Z85.3] Allergies As of Date: 02/23/2022 Noted Allergy Reaction EMEND (FOSAPREPITANT) 07/16/2021 12 - Shortness of Breath PENICILLINS 08/01/2009 7 - Swelling POLYSORBATE 80 09/10/2021 12 - Shortness of Breath TAXOL (PACLITAXEL) 01/19/2022 10 - Anaphylaxis Date Reviewed: 02/23/2022 Reviewed by: Salina Marcum LPN - Fully Assessed Prescriptions as of 04/28/2022 - letrozole (FEMARA) 2.5 mg tablet Take 1 tablet by mouth once daily. beginning 05/09/2022. - ibuprofen (MOTRIN) 200 mg tablet Take 400 mg by mouth every 8 hours as needed. - biotin 1 mg cap Take 8 mg by mouth once daily. - acetaminophen (TYLENOL) 325 mg tablet Take 650 mg by mouth every 6 hours as needed. - calcium carbonate/vitamin D3 (TOÑITO-600 WITH VITAMIN D ORAL) Take 1 tablet by mouth once daily. Facility-Administered Medications as of 04/28/2022 - sodium chloride 0.9 % (flush) 10 mL (BD POSIFLUSH) - perflutren lipid microspheres 1.3 mL in NaCl (PF) 0.9% 10 mL injection (DEFINITY) - sodium chloride 0.9 % (flush) 10 mL (BD POSIFLUSH) Normal [facility] CNOVon 02-18-2022 CNOV Office Visit ([facility] R) TRISH GILLILAND ([id number]) 1975 F Date Time Provider Department 02/18/22 11:45 AM GARRY SANTOS [facility] During your visit today, we recorded the following information about you: Pulse Blood pressure Weight Height 73/minute 130/66 108.4 kg 1.702 m Garry Santos MD 02/18/2022 12:40 PM Signed CHIEF COMPLAINT: Patient presents with: Post Op Patient here for post op visit. Patient relates incision is clean, dry, and intact. Lisa Sommers MA ALLERGIES Allergen Reactions Emend [Fosaprepitan* Shortness of Breath Penicillins Swelling Polysorbate 80 Shortness of Breath Taxol [Paclitaxel] Anaphylaxis Current Outpatient Medications Medication Sig ibuprofen (MOTRIN) 200 mg tablet Take 400 mg by mouth every 8 hours as needed. biotin 1 mg cap Take 1 mg by mouth once daily. acetaminophen (TYLENOL) 325 mg tablet Take 650 mg by mouth every 6 hours as needed. calcium carbonate/vitamin D3 (TOÑITO-600 WITH VITAMIN D ORAL) Take 1 tablet by mouth once daily. oxyCODONE IR (ROXICODONE) 5 mg immediate release tablet Take 1 tablet by mouth every 6 hours as needed for pain. (Patient not taking: No sig reported) gabapentin (NEURONTIN) 300 mg capsule Take 1 capsule by mouth three times daily for 90 days. lidocaine-prilocaine (EMLA) 2.5-2.5 % cream Apply to port site 60 minutes prior to accessing. (Patient not taking: Reported on 02/18/2022) Current Facility-Administered Medications Medication Dose Route Frequency sodium chloride 0.9 % (flush) 10 mL (BD POSIFLUSH) 10 mL INTRAVENOUS DIRECTED PRN perflutren lipid microspheres 1.3 mL in NaCl (PF) 0.9% 10 mL injection (DEFINITY) INTRAVENOUS DIRECTED PRN sodium chloride 0.9 % (flush) 10 mL (BD POSIFLUSH) 10 mL INTRAVENOUS DIRECTED PRN PHYSICAL EXAM: BP 130/66 Pulse 73 Ht 5' 7 (1.70m) Wt 239 lb (108.4kg) LMP 10/11/2021 BMI 37.42 kg/(m2). General Appearance: Well appearing, alert, in no acute distress, well-hydrated, well nourished. Skin: Negative for jaundice or pallor. Lungs: Normal respirations Breast: Bilateral mastectomy incisions are well approximated and healing well without infection or fluid collection. No drainage from any of the incision sites. Axilla: Left axilla reveals mild edema of the soft tissue but no discrete fluid collection, erythema or tenderness. Musculoskeletal: No soft tissue edema; good ROM both UE's Data Reviewed: Operative and pathology findings ASSESSMENT/PLAN: 1. Aftercare following surgery - ICD9: V58.89, ICD10: Z48.89 -Patient is advised on wound care and activity and will follow up in 4 weeks or sooner if needed. Garry Santos MD ?I verified the biomedical scientist/nurse documentation in the medical record, and made appropriate changes. I personally performed a history, physical exam and medical decision making. Garry Santos MD Referring Provider: JEANINE CACERES [[id number]] Allergies As of Date: 02/18/2022 Noted Allergy Reaction EMEND (FOSAPREPITANT) 07/16/2021 12 - Shortness of Breath PENICILLINS 08/01/2009 7 - Swelling POLYSORBATE 80 09/10/2021 12 - Shortness of Breath TAXOL (PACLITAXEL) 01/19/2022 10 - Anaphylaxis Date Reviewed: 02/18/2022 Reviewed by: Garry Santos MD - Fully Assessed Reason for Visit: Post Op [174] Primary Visit Diagnosis:Aftercare following surgery [Z48.89] Prescriptions as of 02/18/2022 - ibuprofen (MOTRIN) 200 mg tablet Take 400 mg by mouth every 8 hours as needed. - oxyCODONE IR (ROXICODONE) 5 mg immediate release tablet Take 1 tablet by mouth every 6 hours as needed for pain. - biotin 1 mg cap Take 1 mg by mouth once daily. - gabapentin (NEURONTIN) 300 mg capsule Take 1 capsule by mouth three times daily for 90 days. - acetaminophen (TYLENOL) 325 mg tablet Take 650 mg by mouth every 6 hours as needed. - lidocaine-prilocaine (EMLA) 2.5-2.5 % cream Apply to port site 60 minutes prior to accessing. - calcium carbonate/vitamin D3 (TOÑITO-600 WITH VITAMIN D ORAL) Take 1 tablet by mouth once daily. Facility-Administered Medications as of 02/18/2022 - sodium chloride 0.9 % (flush) 10 mL (BD POSIFLUSH) - perflutren lipid microspheres 1.3 mL in NaCl (PF) 0.9% 10 mL injection (DEFINITY) - sodium chloride 0.9 % (flush) 10 mL (BD POSIFLUSH) Problem List As Of Date 02/18/2022 Noted Resolved Cholelithiasis NOS [K80.20] 08/01/2009 Bilateral malignant neoplasm of breast in femal*06/30/2021 Malignant neoplasm of overlapping sites of both*07/02/2021 Malignant neoplasm of upper-outer quadrant of l*09/24/2021 Bilateral malignant neoplasm of breast in femal*01/26/2022 Disposition: Return in about 4 weeks (around 03/18/2022). Follow-up and Disposition History for Encounter Date Provider Department Center 02/18/2022 [id number] Encounter Status:Closed by (more content not included)... Normal [facility] Absolute lymphocyte counton 02-16-2022 Lymphocytes Auto (Unsp spec) [#/Vol] 1.82 10*3/uL 0.83-4.51 [facility] Work Phone: Basophil percentageon 2021 Basophils/100 WBC (Bld) 0.7 % 0-1 [facility] Work Phone: Chloride [Moles/Vol] 108 mmol/L 98-107 [facility]: Eosinophils/100 WBC (Bld) 12.8 % 0-5 [facility] Work Phone: Glucose [Mass/Vol] 104 mg/dL 74-106 [facility] Work Phone: Comment on above: Fasting Glucose resu lt from 100 to 125 mg/dL suggests IMPAIRED HOMEOSTASIS per A.D.A. criteria. Neutrophils (Bld) [#/Vol] 3.7 10*3/uL 2.0-7.7 [facility] Work Phone: Neutrophils/100 WBC (Bld) 51.4 % 47-70 [facility] Work Phone: Potassium [Moles/Vol] 4.1 mmol/L 3.5-5.1 [facility] Work Phone: Comment on above: Moderate Hemolysis, Result may be falsely increased. Sodium [Moles/Vol] 142 mmol/L 136-145 [facility] Work Phone: WBC (Bld) [#/Vol] 7.2 10*3/uL 4.4-11.0 [facility] Work Phone: Blood erythrocytes count (nu mber/volume)on 02-16-2022 RBC (Bld) [#/Vol] 4.40 10*6/uL 4.2-5.[address] [facility] Work Phone: Blood hemoglobin measurement (mass/volume)on 02-16-2022 Hemoglobin (Bld) [Mass/Vol] 12.7 g/dL 12.0-15.0 [facility] Work Phone: Blood lymphocytes/100 leukoc yteson 02-16-2022 Lymphocytes/100 WBC (Bld) 25.3 % 19-41 [facility] Work Phone: Blood monocytes/100 leukocyt eson 02-16-2022 Monocytes/100 WBC (Bld) 8.8 % 0-10 [facility] Work Phone: Blood platelet mean volumeon 02-16-2022 Platelet mean volume (Bld) [Entitic vol] 9.0 fL 6.2-12.0 [facility] Work Phone: Determination of erythrocyte mean corpuscular volume (MCV)on 02-16-2022 MCV (RBC) [Entitic vol] 87.0 fL 81-99 [facility] Work Phone: Hematocrit Auto (Bld) [Volum e fraction]on 02-16-2022 Hematocrit (Bld) [Volume fraction] 38.3 % 37-47 [facility] Work Phone: Laboratory - Chemistry and C hemistry - challengeon 02-16-2022 CO2 [Moles/Vol] 28.0 mmol/L 21.0-32.0 [facility] Work Phone: Urea nitrogen/Creatinine [Mass ratio] 21.4 mg/mg 10-20 [facility] Work Phone: Natriuretic peptide B (Bld) [Mass/Vol] 25.9 pg/mL 0-100 [facility] Work Phone: Laboratory - Hematology and Cell countson 02-16-2022 Erythrocyte distribution width (RBC) [Entitic vol] 40.5 fL 35.1-43.9 [facility] Work Phone: [phone] Erythrocyte distribution width (RBC) [Ratio] 12.6 % 11.6-14.6 [facility] Work Phone: Immature granulocytes/100 WBC (Bld) 1.000 % 0.0-0.9 [facility] Work Phone: Comment on above: IG% - Immature Granu locytes (promyelocytes, myelocytes and metamyelocytes) > 1% indicates that a LEFT SHIFT is Present. MCH (RBC) [Entitic mass] 28.9 pg 27.0-32.0 [facility] Work Phone: Nucleated RBC/100 WBC (Bld) [Ratio] 0 % 0-5 [facility] Work Phone: MCHC Auto (RBC) [Mass/Vol]on 02-16-2022 MCHC (RBC) [Mass/Vol] 33.2 g/dL 32-36 [facility] Work Phone: No Panel Informationon 02-16 Estimated Creatinine Clearance Calc 84.54 ml/min [facility] Work Phone: Estimated GFR (MDRD) Amer 99 mL/min >60 [facility] Work Phone: Comment on above: GFR Calc Estimated GFR (MDRD) Non-Af Amer 82 mL/min >60 [facility] Work Phone: Comment on above: Non- GFR Calc Troponin I High Sensitivity 10 pg/mL 3.0-54.0 [facility] Work Phone: Comment on above: Please Note: New [place] t Units and Gender Specific Reference Ranges. For more information see Policy Stat Procedure [place] High Sensitivity Troponin (TNIH) and attachments. D-Dimer Quantitative (PE/DVT) 0.92 FEU/ug/m 0.27-0.49 [facility] Work Phone: Comment on above: D-Dimer ELEVATED (>0 .49): Additional studies and clinicalassessments are indicated to conclude diagnosis of:Deep Vein Thrombosis (DVT) or Pulmonary Embolism (PE)CRITICAL VALUE VERIFIED. CALLED TO FABIÁN GARCIA ('S OFFICE).02/16/22 1247 Sincere Spence.RESULTS READ BACK BY SAME. [facility] Platelets bldon 02-16-2022 Platelets (Bld) [#/Vol] 338 10*3/uL 150-450 [facility] Work Phone: Serum or plasma calcium jolly urement (mass/volume)on 02-16-2022 Calcium [Mass/Vol] 9.6 mg/dL 8.5-10.1 [facility] Work Phone: Serum or plasma creatinine m easurement (mass/volume)on 02-16-2022 Creatinine [Mass/Vol] 0.80 mg/dL 0.55-1.02 [facility] Work Phone: Comment on above: The validity of the calculated GFR & GFRAA in patients over 70 years has not been determined. Clinical correlation is essential. Serum or plasma urea nitroge n measurement (mass/volume)on 02-16-2022 Urea nitrogen [Mass/Vol] 17 mg/dL 7-18 [facility] Work Phone: Thin prep Papanicolaou smear with manual screeningon 02-16-2022 Thin prep Papanicolaou smear with manual screening 6 5-15 [facility] Work Phone: CNOVon 02-04-2022 [facility] TRISH GILLILAND ([id number]) 1975 F Date Time Provider Department 02/04/22 10:00 AM GARRY SANTOS [facility] During your visit today, we recorded the following information about you: Pulse Blood pressure Weight Height 85/minute 100/45 108 kg 1.702 m Garry Santos MD 02/04/2022 11:00 AM Signed CHIEF COMPLAINT: Patient presents with: Post-Op Visit HISTORY OF PRESENT ILLNESS: Trish Gilliland is a 46 year old female who is here for her 1 week post-op visit. Patient had bilateral mastectomies. Patient had right SLNB and left ALND. Patient relates incisions are clean, dry, and intact. Denies signs of erythema. Patient states left underarm area is the most uncomfortable. Patient also states she had an episode last night she woke up and felt like she had stopped breathing. Drain output is as follows: RIGHT LEFT 02/03- 20cc 6cc 02/02- 25cc 15cc 02/01- 30cc 20cc Kait Morris MA ALLERGIES Allergen Reactions Emend [Fosaprepitan* Shortness of Breath Penicillins Swelling Polysorbate 80 Shortness of Breath Taxol [Paclitaxel] Anaphylaxis Current Outpatient Medications Medication Sig biotin 1 mg cap Take 1 mg by mouth once daily. acetaminophen (TYLENOL) 325 mg tablet Take 650 mg by mouth every 6 hours as needed. lidocaine-prilocaine (EMLA) 2.5-2.5 % cream Apply to port site 60 minutes prior to accessing. calcium carbonate/vitamin D3 (TOÑITO-600 WITH VITAMIN D ORAL) Take 1 tablet by mouth once daily. oxyCODONE IR (ROXICODONE) 5 mg immediate release tablet Take 1 tablet by mouth every 6 hours as needed for pain. (Patient not taking: Reported on 02/04/2022) gabapentin (NEURONTIN) 300 mg capsule Take 1 capsule by mouth three times daily for 90 days. Current Facility-Administered Medications Medication Dose Route Frequency perflutren lipid microspheres 1.3 mL in NaCl (PF) 0.9% 10 mL injection (DEFINITY) INTRAVENOUS DIRECTED PRN sodium chloride 0.9 % (flush) 10 mL (BD POSIFLUSH) 10 mL INTRAVENOUS DIRECTED PRN PHYSICAL EXAM: BP 100/45 Pulse 85 Ht 5' 7 (1.70m) Wt 238 lb (108.0kg) LMP 10/11/2021 BMI 37.27 kg/(m2). General Appearance: Well appearing, alert, in no acute distress, well-hydrated, well nourished. Skin: Negative for jaundice or pallor. Lungs: Normal respirations Breast: Bilateral mastectomy incisions are well approximated healing well without evidence of infection or fluid collection. CLARENCE drains removed without difficulty and sterile dry dressings were applied. Axilla: Musculoskeletal: No soft tissue edema; calves non tender Data Reviewed: Op and path findings ASSESSMENT/PLAN: 1. Aftercare following surgery - ICD9: V58.89, ICD10: Z48.89 (primary diagnosis) -46-year-old female doing well status post bilateral mastectomy for bilateral breast cancer with right sentinel lymph node biopsy and left sentinel lymph node biopsy followed by axillary dissection. -Her CLARENCE drains are removed and she is advised on wound care and activity -She will follow-up in 2 weeks or sooner if needed. -She plans on following up with her oncologist in the next 2 weeks as well, and will discuss whether radiation therapy is warranted. Garry Santos MD ?I verified the biomedical scientist/nurse documentation in the medical record, and made appropriate changes. I personally performed a history, physical exam and medical decision making. MD Nancie Clayton MD 02/04/2022 10:57 AM Signed ARM EXERCISES The following exercises are recommended for the arm on the same side as your breast cancer surgery. ARM STRETCHES 1. With your arm straight, slowly raise it in front of you until you feel gentle resistance or discomfort. Hold it there and slowly count to 5. Slowly lower it back down to your side. Repeat this 2 more times. 2. With your arm straight, slowly raise it out to your side until you feel gentle resistance or discomfort. Hold it there and slowly count to 5. Lower your arm slowly back down to your side. Repeat this 2 more times. 3. With your arm straight, slowly raise it out behind you until you feel gentle resistance or discomfort. Hold it there and slowly count to 5. Lower your arm slowly back down to your side. Repeat this 2 more times. ARM CIRCLES 1. With your arm straight, slowly raise it in front of you until you feel gentle resistance or discomfort. Rotate your arm in a circular pattern, like you were circling a basketball with it. First rotate your arm to the left for 5 circles, then to the right for 5 more. Lower your arm gently back to your side. Repeat the circles with your arm out to your side and again with your arm extended behind you. FINGER WALKIING 1. Stand near a wall with your arm straight out in front of you. Let your fingers touch the wall. Gently ?walk? your fingers up the wall. Stop at the p (more content not included)... Normal [facility] Basic metabolic 2000 panelon 01-27-2022 Anion gap [Moles/Vol] 13 mmol/L Normal 9-18 [facility] Comment on above: Order Comment: Speci men Type: BLOOD SPECIMENOrdering Facility: [facility] Address: [address] [address] Performed By: #### 2 4321-2 ####[facility]ORATORYCLIA [id number] [place] [address] [place] Calcium [Mass/Vol] 9.2 mg/dL Normal 8.5-10.2 [facility] Comment on above: Order Comment: Speci men Type: BLOOD SPECIMENOrdering Facility: [facility] Address: [address] [place] [address] Performed By: #### 2 4321-2 ####[facility]ORATORYCLIA [id number] [place] [address] [place] Chloride [Moles/Vol] 103 mmol/L Normal 97-105 [facility] Comment on above: Order Comment: Speci men Type: BLOOD SPECIMENOrdering Facility: [facility] Address: [address] [place] [address] Performed By: #### 2 4321-2 ####[facility]ORATORYCLIA [id number] [address] [place] CO2 [Moles/Vol] 23 mmol/L Normal 22-30 [facility] Comment on above: Order Comment: Speci men Type: BLOOD SPECIMENOrdering Facility: [facility] Address: [address] [place] [address] Performed By: #### 2 4321-2 ####[facility]ORATORYCLIA [id number] [address] [place] Creatinine [Mass/Vol] 0.72 mg/dL Normal 0.58-0.96 [facility] Comment on above: Order Comment: Speci men Type: BLOOD SPECIMENOrdering Facility: [facility] Address: [address] [place] [address] Performed By: #### 2 4321-2 ####[facility] LABORATORYCLIA [id number] [address] [place] ESTIMATED GLOMERULAR FILTRATION RATE 104 mL/min/1.73m??? Normal >=60 [facility] Comment on above: Order Comment: Geraldine lara Type: BLOOD SPECIMENOrdering Facility: [facility] Address: [address] Result Comment: Mariaa mated Glomerular Filtration Rate (eGFR) is calculated using the 2020 CKD-EPI creatinine equation. This equation utilizes serum creatinine, sex, and age as parameters. The creatinine assay has traceable calibration to isotope dilution-mass spectrometry. Refer to KDIGO guidelines for clinical interpretation. In patients with unstable renal function, e.g. those with acute kidney injury, the eGFR may not accurately reflect actual GFR. Performed By: #### 2 4321-2 ####[facility]ORATORYCLIA [id number] [place] [address] [place] Glucose [Mass/Vol] 128 mg/dL High 74-99 [facility] Comment on above: Order Comment: Geraldine lara Type: BLOOD SPECIMENOrdering Facility: [facility] Address: [address] [place] [address] Result Comment: The [place] Diabetes Association (ADA) provides guidance for cutoff values for fasting glucose and random glucose. The ADA defines fasting as no caloric intake for at least 8 hours. Fasting plasma glucose results between 100 to 125 mg/dL indicate increased risk for diabetes (prediabetes). Fasting plasma glucose results greater than or equal to 126 mg/dL meet the criteria for diagnosis of diabetes. In the absence of unequivocal hyperglycemia, results should be confirmed by repeat testing. In a patient with classic symptoms of hyperglycemia or hyperglycemic crisis, random plasma glucose results greater than or equal to 200 mg/dL meet the criteria for diagnosis of diabetes. Reference: Standards of Medical Care in Diabetes 2016, [place] Diabetes Association. Diabetes Care. 2016.39(Suppl 1). Performed By: #### 2 4321-2 ####[facility]ORATORYCLIA [id number] [place] [address] [place] Potassium [Moles/Vol] 4.1 mmol/L Normal 3.7-5.1 [facility] Comment on above: Order Comment: Geraldine lara Type: BLOOD SPECIMENOrdering Facility: [facility] Address: [address] [address] Performed By: #### 2 4321-2 ####[facility]ORATORYCLIA [id number] [address] Sodium [Moles/Vol] 139 mmol/L Normal 136-144 [facility] Comment on above: Order Comment: Speci men Type: BLOOD SPECIMENOrdering Facility: [facility] Address: [address] [place] [address] Performed By: #### 2 4321-2 ####[facility]ORATORYCLIA [id number] [address] [place] Urea nitrogen [Mass/Vol] 13 mg/dL Normal 7-21 [facility] Comment on above: Order Comment: Speci men Type: BLOOD SPECIMENOrdering Facility: [facility] Address: [address] [place] [address] Performed By: #### 2 4321-2 ####[facility]ORATORYCLIA [id number] [address] CBC panel Auto (Bld)on 01-27 Erythrocyte distribution width (RBC) [Ratio] 12.5 % Normal 11.5-15.0 [facility] Comment on above: Order Comment: Speci men Type: BLOOD SPECIMENOrdering Facility: [facility] Address: [address] [place] [address] Performed By: #### 5 8410-2 ####[facility]ORATORYCLIA [id number] [address] Hematocrit (Bld) [Volume fraction] 36.2 % Normal 36.0-46.0 [facility] Comment on above: Order Comment: Speci men Type: BLOOD SPECIMENOrdering Facility: [facility] Address: [address] [place] [address] Performed By: #### 5 8410-2 ####[facility]ORATORYCLIA [id number] [address] [place] Hemoglobin (Bld) [Mass/Vol] 12.0 g/dL Normal 11.5-15.5 [facility] Comment on above: Order Comment: Speci men Type: BLOOD SPECIMENOrdering Facility: [facility] Address: [address] [place] [address] Performed By: #### 5 8410-2 ####[facility]ORATORYCLIA [id number] [address] MCH (RBC) [Entitic mass] 28.6 pg Normal 26.0-34.0 [facility] Comment on above: Order Comment: Speci men Type: BLOOD SPECIMENOrdering Facility: [facility] Address: [address] [place] [address] Performed By: #### 5 8410-2 ####[facility]ORATORYCLIA [id number] [address] MCHC (RBC) [Mass/Vol] 33.1 g/dL Normal 30.5-36.0 [facility] Comment on above: Order Comment: Speci men Type: BLOOD SPECIMENOrdering Facility: [facility] Address: [address] [place] [address] Performed By: #### 5 8410-2 ####[facility]ORATORYCLIA [id number] [address] MCV (RBC) [Entitic vol] 86.4 fL Normal 80.0-100.[address] [facility] Comment on above: Order Comment: Speci men Type: BLOOD SPECIMENOrdering Facility: [facility] Address: [address] [place] [address] Performed By: #### 5 8410-2 ####[facility]ORATORYCLIA [id number] [address] Nucleated RBC (Bld) [#/Vol] 10*3/uL Normal <0.01 [facility] Comment on above: Order Comment: Speci men Type: BLOOD SPECIMENOrdering Facility: [facility] Address: [address] [place] [address] Performed By: #### 5 8410-2 ####[facility]ORATORYCLIA [id number] [address] [place] Platelet mean volume (Bld) [Entitic vol] 9.4 fL Normal 9.0-12.7 [facility] Comment on above: Order Comment: Speci men Type: BLOOD SPECIMENOrdering Facility: [facility] Address: [address] [place] [address] Performed By: #### 5 8410-2 ####[facility]ORATORYCLIA [id number] [address] [place] Platelets (Bld) [#/Vol] 171 10*3/uL Normal 150-400 [facility] Comment on above: Order Comment: Speci men Type: BLOOD SPECIMENOrdering Facility: [facility] Address: [address] [place] [address] Performed By: #### 5 8410-2 ####[facility]ORATORYCLIA [id number] [address] [place] [facility] RBC (Bld) [#/Vol] 4.19 10*6/uL Normal 3.90-5.20 [facility] Comment on above: Order Comment: Speci men Type: BLOOD SPECIMENOrdering Facility: [facility] Address: [address] [place] [address] Performed By: #### 5 8410-2 ####[facility]ATORYCLIA [id number] [address] [place] WBC (Bld) [#/Vol] 13.58 10*3/uL High 3.70-11.00 [facility] Comment on above: Order Comment: Speci men Type: BLOOD SPECIMENOrdering Facility: [facility] Address: [address] [place] [address] Performed By: #### 5 8410-2 ####[facility]ORATORYCLIA [id number] [address] OF [facility] CNDSon 01-27-2022 CNDS HNO ID: [id number] Author: Nenita Luis Alberto, DO Service: General Surgery Author Type: Resident Type: Discharge Summary Filed: 01/27/2022 7:29 AM Note Text: Attestation signed by Garry Santos MD at 01/27/2022 5:05 PM I saw and evaluated the patient. Discussed with the resident and agree with resident's findings and plan as documented in the resident's note. Garry Santos MD January 27, 2022 5:05 PM DISCHARGE SUMMARY PATIENT NAME: Trish Gilliland Code Status: Not on file Highest Readmission Risk Score: 5 The 30 day readmissions risk score is derived from an internally validated risk model which evaluates patient level characteristics, utilization history, medication orders and lab results up until the day of discharge. Patients with a score of 40 or above are considered highest risk for readmission. Specific patient level drivers will be listed at the bottom of the summary. Admission Information Admission Information ADMIT DATE: 01/26/2022 DISCHARGE DATE: January 27, 2022 MY DOCTORS AND MEDICAL TEAM: My Main Hospital Doctor: Garry Santos MD Primary Care Provider: Jeanine Caceres MD, MD My Medical Team Members: Treatment Team: Attending Provider: Garry Santos MD MY CONDITION AT DISCHARGE: stable REASON I WAS IN THE HOSPITAL: bilateral mastectomy SUMMARY OF WHAT HAPPENED WHILE I WAS IN THE HOSPITAL: Patient with Pmh of bilat malignant neoplasm (ER+) with mets to L axillary node (s/p neoadjuvant chemo) was admitted on 01/26 after scheduled bilateral mastectomy with right SLN biopsy, and Left axillary dissection. She was transferred to regular nursing floor without complications. On 01/27, she was tolerating a diet, pain was well controlled and she was stable for discharge with CLARENCE drains in place. She was instructed to follow up in office with Dr. Santos. OTHER PROBLEMS/DIAGNOSIS: Principal Problem: Bilateral malignant neoplasm of breast in female (HCC) Active Problems: Bilateral malignant neoplasm of breast in female, unspecified estrogen receptor status, unspecified site of breast (HCC) Resolved Problems: * No resolved hospital problems. * OPERATIONS PERFORMED WHILE IN THE HOSPITAL: IMPORTANT TEST/PROCEDURES: TEST RESULTS NOT AVAILABLE AT THIS TIME: Pathology results Discharge Disposition Activity When You Leave the Hospital Lifting is restricted to: Do not lift over 10-15 pounds for 2-3 weeks No baths or showers for: 24-48 hrs No walking restrictions Diet Instructions Drink 6 to 8 glasses of fluids per day Resume your pre-hospital diet For Pain When You Leave the Hospital If you become constipated, you may use any nrwl-atb-uxrvmpv treatment such as Milk of Magnesia, Sennakot, Prune Juice, Suppositories, etc. in addition to the stool softener/fiber supplement No alcohol or driving while on pain medication Use acetaminophen (Tylenol) as recommended on the bottle Use the dispensed medication (see prescription) Wound/Surgical Site Care Drain care as instructed by nurse Leave open to air Record output of your drain There is a rubber drain in your incision, DO NOT change your dressing. If it becomes soiled, cover it with clean gauze Wash your hands frequently, especially before touching your incision, after using restroom and before eating Your incision has skin glue. It will peel off on its own. It can get wet Call Your Doctor If There is an unusual odor from the wound area There is severe pain at the operative site You have a severe headache You have difficulty urinating or pain when urinating You have lightheadedness, fainting, or confusion You have pain and swelling in your legs, especially if it is only on one side and not the other You have persistent nausea/vomiting over 24 hours You have persistent or heavy bleeding You have redness, swelling, pus or drainage from the wound You have swollen glands or cold and clammy skin Your temperature is greater than 101F Follow Up Appointments Follow-Up Appointment When: In 2 weeks Patient/Parents to call for appointment?: Yes Garry Santos MD [phone] [address] [place] [address] PCP Requested Referral Additional Provider to Provider Information: No notes on file Treatment Team: Attending Provider: Garry Santos MD FOLLOW-UP APPOINTMENTS ALREADY SCHEDULED WITH A [facility] PROVIDER: Future Appointments Date Time Provider Department Center 02/04/2022 10:00 AM Garry Santos MD [facility] 02/16/2022 8:45 AM LAB [facility] [place] 02/16/2022 9:10 AM Rachid Moore, HEMAWS [place] ALLERGIES Allergen Reactions Emend [Fosaprepitan* Shortness of Breath Penicillins Swelling Polysorbate 80 Shortness of Breath Taxol [P (more content not included)... Normal [facility] ALLIED HEALTHon 01-26-2022 ALLIED HEALTH HNO ID: [id number] Author: RT Marina(R) Service: Radiology Author Type: Technologist Type: Allied Health Filed: 01/26/2022 7:59 PM Note Text: Radiology Service Progress Note PATIENT NAME: Trish Gilliland DATE OF SERVICE: January 26, 2022 TIME: 7:59 PM PATIENT IDENTITY VERIFICATION COMPLETED USING TWO (2) IDENTIFIERS: Name and Date of confirmed by identification band. FALL SCREENING: Has the patient had 2 falls in the last year or 1 fall with injury or currently using an Ambulatory Assistive Device (Walker, Cane, Wheelchair, Crutches, etc.)? Inpatient: Screened on floor PATIENT GENDER DATA: Female. status: : No status: NO. PATIENT RELEVANT IMPLANT DATA REVIEWED: Not Applicable RADIOLOGY DEPARTMENT: General X-ray: Exam(s) Completed: Chest X-Ray PERIPHERAL IV DATA: Not applicable SIGNED BY: RT Marina(R) January 26, 2022 7:59 PM [facility] ANES POSTPROC EVALon 022 ANES POSTPROC EVAL HNO ID: [id number] Author: Laurel Dasilva MD Service: ? Author Type: Physician Type: Anesthesia Postprocedure Evaluation Filed: 01/26/2022 9:49 PM Note Text: POST ANESTHESIA EVALUATION NOTE : 1975 Procedure Summary Date: 01/26/22 Room / Location: [facility] OR 12 / [facility] OR Anesthesia Start: 1308 Anesthesia Stop: 1913 Procedures: MASTECTOMY SIMPLE BILATERAL (Bilateral: Breast) PLACEMENT OF BREAST LOCALIZATION DEVICE(S) PERCUTANEOUS; FIRST LESION, ULTRASOUND GUIDANCE FORREST FISHER LOBSTER (Bilateral: Breast) BIOPSY BREAST SENTINEL NODE (Bilateral: Breast) BIOPSY BREAST WITH FROZEN SECTIONS (Bilateral: Breast) INJECTION PROCEDURE RADIOACTIVE TRACER FOR IDENTIFICATION OF SENTINEL NODE (Bilateral: Breast) INTRAOPERATIVE ID OF SENTINEL LYMPH NODE(S) INCL'D INJECTION OF NON-RAD DYE WHEN PERFORMED (Bilateral: Breast) LYMPHADENECTOMY AXILLARY COMPLETE (Left: Breast) EXCISION LEFT AXILLARY SOFT TISSUE MASS (Left: Breast) REMOVE MEDIPORT (Right) MASTECTOMY SIMPLE BILATERAL (Bilateral: Breast) Diagnosis: 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, estrogen receptor positive (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, estrogen receptor positive (HCC) Surgeons: Garry Santos MD; Nancie House MD Responsible Provider: Laurel Dasilva MD Anesthesia Type: general ASA Status: 2 Anesthesia Type: general Airway Type: ETT Last Vitals Vitals Value Taken Time BP 130/67 01/26/222114 Temp 36.1 ?C (97 ?F) 01/26/22 2100 HR SpO2 82 01/26/222129 Resp 20 01/26/222129 SpO2 100 % 01/26/222129 Vitals shown include unvalidated device data. Post Anesthesia Patient Status Patient Evaluation: PACU. PACU/ICU Patient Condition: stable. Anticipated Disposition: phase 2 then home. Neurological Status: aware and responsive. Pulmonary Status: breathing comfortably on room air Airway Control: returned to baseline unsupported. Cardiovascular Status: stable. Pain Management: clinically adequate Postoperative Hydration: acceptable. Intraoperative Events: no significant anesthesia events Post Operative Nausea/Vomiting Status: no significant post operative nausea or vomiting Anesthetic Observations: Recommendation: continue current plan of care. Anesthesia Observations No Documentation SIGNATURE: Laurel Dasilva MD PATIENT NAME: Trish Gilliland DATE: January 26, 2022 TIME: 9:49 PM CSN: [id number] Normal [facility] ANES PRE-OPon 01-26-2022 ANES PRE-OP HNO ID: [id number] Author: Tanvir Lazo MD Service: Anesthesiology Author Type: Physician Type: Anesthesia Preprocedure Evaluation Filed: 01/26/2022 12:13 PM Note Text: ANESTHESIOLOGY DAY OF SURGERY NOTE : 1975 Procedure Information Date/Time: 01/26/22 1220 Procedures: MASTECTOMY SIMPLE BILATERAL (Bilateral: Breast) - ERAS PROTOCOL, PEC BLOCK PLACEMENT OF BREAST LOCALIZATION DEVICE(S) PERCUTANEOUS; FIRST LESION, ULTRASOUND GUIDANCE FORREST FISHER LOBSTER (Bilateral: Breast) BIOPSY BREAST SENTINEL NODE (Bilateral: Breast) BIOPSY BREAST WITH FROZEN SECTIONS (Bilateral: Breast) INJECTION PROCEDURE RADIOACTIVE TRACER FOR IDENTIFICATION OF SENTINEL NODE (Bilateral: Breast) INTRAOPERATIVE ID OF SENTINEL LYMPH NODE(S) INCL'D INJECTION OF NON-RAD DYE WHEN PERFORMED (Bilateral: Breast) LYMPHADENECTOMY AXILLARY COMPLETE (Left: Breast) EXCISION LEFT AXILLARY SOFT TISSUE MASS (Left: Breast) MASTECTOMY SIMPLE BILATERAL (Bilateral: Breast) Location: [facility] OR 12 / [place] OR Surgeons: Garry Santos MD; Nancie House MD Estimated body mass index is 39.25 kg/m? as calculated from the following: Height as of 01/19/22: 170.2 cm (5' 7). Weight as of 01/19/22: 113.7 kg (250 lb 9.6 oz). Most recent hematocrit and potassium results: Hematocrit 39.6 12/07/2021 Potassium 4.0 12/07/2021 Relevant Problems No relevant active problems I - PHYSICAL EVALUATION AIRWAY Patient intubated: No. Tracheostomy tube not present Mallampati: II. TM distance: >3 FB. Neck ROM: full ROM without neurological symptoms. Mouth opening: adequate. Short neck: no. Thick neck: no DENTAL Dental findings: teeth intact. II - ANESTHESIA PLAN ASA Score: 2 The patient is not a current smoker. NPO Status: adequate Monitoring plan: standard ASA. Postoperative analgesic plan: multimodal analgesia and peripheral nerve block. Informed Consent Anesthetic risks, benefits, alternatives, personnel and consent discussed: yes. Patient / Responsible Democrat agrees to proceed: yes Patient / Surrogate agrees to blood products: blood products not planned Significant changes in the patient condition since the History and Physical, not otherwise documented in primary service progress note: no. Potential Anesthesia issues that may suggest increased risk of complications or contraindication to planned procedure: none. Vitals Value Taken Time BP 129/90 01/26/22 1059 Pulse 92 01/26/22 1059 Resp 18 01/26/22 1059 Temp 36.3 ?C (97.3 ?F) 01/26/22 1059 SpO2 100 % 01/26/22 1059 Facility-Administered Medications as of 01/26/2022 Medication Dose Route Frequency - lidocaine 10 mg/mL (1 %) 1-2 mg injection (XYLOCAINE) 0.1-0.2 mL INTRADERMAL PRN - lactated ringers iv infusion 5-30 mL/hr INTRAVENOUS CONTINUOUS - [COMPLETED] enoxaparin 40 mg injection (LOVENOX) 40 mg SUBCUTANEOUS Pre-Op Once - [COMPLETED] acetaminophen 975 mg tab(s) (TYLENOL) 975 mg ORAL Pre-Op Once - [COMPLETED] celecoxib 400 mg cap(s) (CeleBREX) 400 mg ORAL Pre-Op Once - [COMPLETED] gabapentin 300 mg cap(s) (NEURONTIN) 300 mg ORAL Pre-Op Once - clindamycin iv piggyback 900 mg in D5W 50 mL (CLEOCIN) 900 mg INTRAVENOUS Pre-Op Once Outpatient Medications as of 01/26/2022 Medication Sig - acetaminophen (TYLENOL) 325 mg tablet Take 650 mg by mouth every 6 hours as needed. - lidocaine-prilocaine (EMLA) 2.5-2.5 % cream Apply to port site 60 minutes prior to accessing. - calcium carbonate/vitamin D3 (TOÑITO-600 WITH VITAMIN D ORAL) Take 1 tablet by mouth once daily. - gabapentin (NEURONTIN) 300 mg capsule Take 1 capsule by mouth three times daily for 90 days. I have interviewed and examined the patient. I have reviewed the medical record and/or the pre-anesthesia evaluation, pertinent labs, and test results. This contains updated information obtained within 48 hours of Surgery/Procedure. SIGNATURE: Tanvir Lazo MD PATIENT NAME: Trish Gilliland DATE: January 26, 2022 TIME: 12:13 PM CSN: [id number] [facility] SURGICAL BREAST SPECIMEN LTon 01-26-2022 [facility] SURGICAL BREAST SPECIMEN LT * * *Final Report* * * DATE OF EXAM: Jan 26 2022 7:32PM [facility] 0638 - [facility] SURGICAL BREAST SPECIMEN LT / PROCEDURE REASON: MASTECTOMY * * * * Physician Interpretation * * * * #[id number] - [facility] SURGICAL BREAST SPECIMEN LT SPECIMEN: 01/26/2022 HISTORY: /Breast specimen radiograph. Correlation is made to exams dated: 12/06/2021 breast MRI - [facility], 07/06/2021 mammogram, 07/06/2021 localization, 07/02/2021 mammogram - [facility], 06/21/2021 breast MRI, and 06/16/2021 ultrasound. Single image of the surgical specimen from the left breast demonstrates the coil clip and 2scout reflector in the specimen. This available for interpretation on 01/28/22. IMPRESSION: SPECIMEN Renee mathur/ignacio:01/28/2022 11:33:35 copy to: GARRY SANTOS, ph: [phone] Audio Specialist(s): [facility] Network[facility] Ray, [facility] Multiple national specialty organizations have released breast cancer screening guidelines for women at average risk for developing breast cancer - guidelines that are based on both evidence and opinion, yet differ on when to start and how often to screen for breast cancer. With representation from Breast Imaging, Internal Medicine, Women's Health, Family Medicine, and Medical/Surgical Oncology, the [facility] has carefully reviewed the data and reached the following consensus: 1) All women should engage in shared decision-making with their providers to decide when to start and how often to screen; 2) All women should have the opportunity to start screening mammography at age 40; 3) For women ages 45-55, we recommend annual screening mammograms; 4) For women ages 55 and over, we support both the transition from an annual to a biennial interval if this aligns more with patient's values and preferences, or continuation with annual screening; 5) All women should discuss with their providers when to stop screening mammograms. [employer] Manager: Ignacio Transcribe Date/Time: Jan 26 2022 8:58A Dictated by : RENEE LUKE MD This examination was interpreted and the report reviewed and electronically signed by: RENEE LUKE MD on Jan 28 2022 11:33AM EST [id number] Normal [facility] SURGICAL BREAST SPECIMEN RTon 01-26-2022 [facility] SURGICAL BREAST SPECIMEN RT * * *Final Report* * * DATE OF EXAM: Jan 26 2022 7:32PM [facility] 0639 - [facility] SURGICAL BREAST SPECIMEN RT / PROCEDURE REASON: right breast specimen * * * * Physician Interpretation * * * * #[id number] - [facility] SURGICAL BREAST SPECIMEN RT SPECIMEN: 01/26/2022 HISTORY: /Breast specimen radiograph. Correlation is made to exams dated: 12/06/2021 breast MRI - [facility], 07/06/2021 mammogram, 07/06/2021 localization, 07/02/2021 mammogram - [facility], 06/21/2021 breast MRI, and 06/16/2021 ultrasound. A mastectomy specimen is submitted for review. There are two biopsy clips contained within the specimen including a coil shaped clip and a ribbon shaped clip correlating with previous imaging. IMPRESSION: SPECIMEN Coil and ribbon clips contained with the mastectomy specimen. Kateryna loza/ignacio:01/28/2022 16:44:37 copy to: GARRY SANTOS, ph: [phone] Audio Specialist(s): [facility], [facility] Multiple national specialty organizations have released breast cancer screening guidelines for women at average risk for developing breast cancer - guidelines that are based on both evidence and opinion, yet differ on when to start and how often to screen for breast cancer. With representation from Breast Imaging, Internal Medicine, Women's Health, Family Medicine, and Medical/Surgical Oncology, the [facility] has carefully reviewed the data and reached the following consensus: 1) All women should engage in shared decision-making with their providers to decide when to start and how often to screen; 2) All women should have the opportunity to start screening mammography at age 40; 3) For women ages 45-55, we recommend annual screening mammograms; 4) For women ages 55 and over, we support both the transition from an annual to a biennial interval if this aligns more with patient's values and preferences, or continuation with annual screening; 5) All women should discuss with their providers when to stop screening mammograms. [employer] Manager: Ignacio Transcribe Date/Time: Jan 26 2022 4:01P Dictated by : KATERYNA HIGGINS MD This examination was interpreted and the report reviewed and electronically signed by: KATERYNA HIGGINS MD on Jan 28 2022 4:44PM EST [id number] Normal [facility] NM INJ SENT NODE BREAST LTon 01-26-2022 NM INJ SENT NODE BREAST LT * * *Final Report* * * DATE OF EXAM: Jan 26 2022 10:49AM [facility] 2191 - [place] INJ SENT NODE BREAST LT / PROCEDURE REASON: C50.811, C50.812, Z17.0] * * * * Physician Interpretation * * * * BREAST LYMPHATIC MAPPING: HISTORY: Bilateral breast cancer. TECHNIQUE: 1.06 mCi of filtered technetium-99m tilmanocept in 4 aliquots were injected after topical anesthetic into the periareolar tissue of the right breast. Injection time was 10:15. The same procedure was then repeated for the left breast and 1.05 mCi of filtered technetium-99m tilmanocept was injected at 10:18. RESULT: No imaging was obtained. IMPRESSION: Bilateral breast radiotracer injection. [employer] Manager: [facility] Transcribe Date/Time: Jan 26 2022 11:47A Dictated by : FRANCOIS PIZARRO MD This examination was interpreted and the report reviewed and electronically signed by: FRANCOIS PIZARRO MD on Jan 26 2022 11:51AM EST [id number] Normal [facility] NM INJ SENT NODE BREAST RTon 01-26-2022 NM INJ SENT NODE BREAST RT * * *Final Report* * * DATE OF EXAM: Jan 26 2022 10:51AM [facility] 2190 - [place] INJ SENT NODE BREAST RT / PROCEDURE REASON: C50.811, C50.812, Z17.0] * * * * Physician Interpretation * * * * BREAST LYMPHATIC MAPPING: HISTORY: Bilateral breast cancer. TECHNIQUE: 1.06 mCi of filtered technetium-99m tilmanocept in 4 aliquots were injected after topical anesthetic into the periareolar tissue of the right breast. Injection time was 10:15. The same procedure was then repeated for the left breast and 1.05 mCi of filtered technetium-99m tilmanocept was injected at 10:18. RESULT: No imaging was obtained. IMPRESSION: Bilateral breast radiotracer injection. [employer] Manager: [facility] Transcribe Date/Time: Jan 26 2022 11:47A Dictated by : FRANCOIS PIZARRO MD This examination was interpreted and the report reviewed and electronically signed by: FRANCOIS PIZARRO MD on Jan 26 2022 11:51AM EST [id number] Normal [facility] OPERATIVE NOon 01-26-2022 OPERATIVE NO HNO ID: [id number] Author: Garry Santos MD Service: General Surgery Author Type: Physician Type: Operative Report Filed: 01/26/2022 7:11 PM Note Text: OPERATIVE/PROCEDURE REPORT LOG ID: [id number] SURGERY/PROCEDURE DATE: 01/26/2022 INCISION/PROCEDURE START TIME: 1:57 PM INCISION CLOSE/PROCEDURE END TIME: 6:53 PM SURGEON(S)/PROCEDURALIS T(S) AND ELECTRICAL INTERN(S): Surgeon(s) and Role: Panel 1: * Garry Santos MD - Primary * Nenita Sahu DO - Resident - Assisting Panel 2: * Nancie House MD - Primary * Ebony Barry MD - Fellow Child Care Aide: Miriam Lundy SA SURGERY/PROCEDURE(S): Bilateral mastectomy with right sentinel lymph node biopsy, left sentinel lymph node biopsy with frozen section, left axillary dissection, nuclear and blue dye injection Right Mediport removal. ANESTHESIA: General SURGERY/PROCEDURE DETAILS: 46-year-old female status post neoadjuvant chemotherapy who has bilateral breast cancer. Due to the bilateral nature of her disease, Dr. House operated on the patient's right breast performing a right mastectomy with sentinel lymph node biopsy, and Mediport removal, and this will be a separate dictation. I proceeded with left simple mastectomy with sentinel lymph node biopsy with frozen section and axillary dissection. The patient is brought into the operating room and placed under general anesthesia. Anesthesia team proceeded with bilateral pectoral blocks. Prior to coming into the operating room the patient underwent bilateral nuclear injection. Next the patient underwent bilateral Lymphazurin blue dye injection into bilateral subareolar plexus followed by 10 cc of sterile saline injection and breast massage. The patient's anterior chest and upper extremities were prepped and draped in usual sterile fashion, and after surgical timeout and an elliptical incision is made incorporating the nipple areolar complex on the left. Skin flaps are developed superiorly and inferiorly, and the breast is removed from the chest wall including the pectoralis fashion in its entirety including the axillary tail. A specimen mammogram was performed which identified the previously placed coil clip in the breast where the cancer was noted to be. The specimen is oriented with suture and sent to pathology. The previously biopsied left axillary level 1 lymph node within which had cancer in it was identified with the Forrest slab lifting engineer and the neoprobe and this was excised with the LigaSure device as sentinel lymph node #1 and sent for frozen section. This was radioactive as well and had a radioactive count of 10,056. A specimen mammogram confirmed removal of the lymph node with the Forrest slab lifting engineer x2 within it. An additional radioactive lymph node is encountered in level 1, and this was resected with the LigaSure device and had a radioactive count of 1336 and was sent to pathology as sentinel lymph node #2. No additional blue, radioactive or clinically suspicious nodes were identified, and the bed count returned as 67 on the neoprobe. Commission on Cancer - Standard 5.3: Holden Node Biopsy Synoptic Operative Reporting Operation performed with curative intent: Yes 2. Tracer(s) used to identify sentinel nodes in the upfront surgery (non-neoadjuvant) setting--select all that apply: N/A 3. Tracer(s) used to identify sentinel nodes in the neoadjuvant setting--select all that apply: Dye, Radioactive tracer, and Other: Forrest slab lifting engineer 4. All nodes (colored or non-colored) present at the end of a dye-filled lymphatic channel were removed: Yes 5. All significantly radioactive nodes were removed: Yes 6. All palpably suspicious nodes were removed: Yes 7. Biopsy-proven positive nodes marked with clips prior to chemotherapy were identified and removed: Yes While the frozen section was being performed the excess soft tissue in the left axilla which was superficially located in the subcutaneous space was excised. The frozen section returned positive for a macrometastasis and sentinel lymph node #1, and we proceeded with left axillary dissection. The left axillary vein is identified and dissected along its anterior surface. The latissimus dorsi muscle was identified and dissected along its anterior surface to the level of the axillary vein. An intercostal brachial cutaneous nerve was identified and preserved. Next the thoracodorsal bundle is identified off of the axillary vein and the thoracodorsal nerve was identified and traced to its insertion into the latissimus dorsi muscle. All of the axillary contents lateral to the nerve are then reflected medially, and this allowed identification of the long thoracic nerve on the chest wall. This is dissected and preserved in the complete level 1 and level 2 axillary dissection is performed. The tissue was sent as axillary contents. The subcutaneous axillary tissue was included with these contents. I then palpated for Tosin (more content not included)... Normal [facility] OPERATIVE NO HNO ID: [id number] Author: Nancie House MD Service: General Surgery Author Type: Physician Type: Operative Report Filed: 01/28/2022 9:37 AM Note Text: OPERATIVE/PROCEDURE REPORT LOG ID: [id number] SURGERY/PROCEDURE DATE: 01/26/2022 INCISION/PROCEDURE START TIME: 1:57 PM INCISION CLOSE/PROCEDURE END TIME: 6:53 PM SURGEON(S)/PROCEDURALIS T(S) AND ELECTRICAL INTERN(S): Surgeon(s) and Role: Panel 1: * Garry Santos MD - Primary * Nenita Sahu DO - Resident - Assisting Panel 2: * Nancie House MD - Primary * Ebony Barry MD - Fellow Child Care Aide: Miriam Lundy SA SURGERY/PROCEDURE(S): Right mastectomy with right sentinel node biopsy, removal of right chest Mediport ANESTHESIA: General SURGERY/PROCEDURE DETAILS: Indications and Consent: The patient is a 46 year old female was found to have a bilateral breast cancer with biopsy proven metastatic disease to the left axillary lymph nodes. She underwent neoadjuvant chemotherapy and presents today for bilateral mastectomy with sentinel lymph node biopsies. The procedure was discussed at length with the patient including the risks, benefits, options potential complications of reaction to anesthesia, infection, bleeding, nerve injury, lymphedema, seroma, skin necrosis, anaphylaxis, and need for additional procedures have been reviewed with the patient. All questions have been answered and the patient wishes to proceed. Informed consent was obtained preoperatively. The right mastectomy and sentinel lymph node biopsy was performed by Dr. House. Dr. Santos performed the left mastectomy and axillary exploration. Description of procedure: The patient was brought to the operating room after injection of technetium sulfur colloid in the bilateral breasts in the radiology suite. She was placed in the supine position on the operating table. After satisfactory induction of anesthesia, a time-out was completed verifying correct patient, procedure, site, positioning, and implant(s) and/or special equipment prior to beginning this procedure. We then proceeded with injection of isosulfan blue into the subareolar region of the right breast. The right nipple was cleansed with an alcohol pad and a total of 5mL of isosulfan blue followed by 10mL of injectable saline were used. The bilateral breasts and axillas were then prepped and draped in usual sterile fashion. Using hand-held gamma probe, there was no evidence of internal mammary or infraclavicular jesse drainage. The gamma probe did reveal activity within the right axilla. We began with removal of the right chest Mediport located inferior and medial to the clavicle. A 2 cm incision was made over the palpable Mediport with a #15 scalpel electrocautery was used to dissect the subcutaneous tissue down to the level of the Mediport. The Mediport reservoir and catheter were then carefully and completely removed without difficulty. The cavity capsule was then excised using electrocautery. Adequate hemostasis was obtained and the wound was closed in a multilayer fashion using 3-0 Vicryl and 4-0 Monocryl. We then proceeded to the right mastectomy. The margins of the mastectomy flaps were then carefully marked including the nipple areolar complex extending into the right axilla to include excess lateral adipose tissue. A skin incision was then made using a #10 scalpel, flaps were raised in the avascular plane between subcutaneous tissue and breast tissue from the clavicle superiorly, the sternum medially, the anterior rectus sheath inferiorly, and the lateral border of the pectoralis major muscle laterally. Hemostasis was achieved in the flaps using electrocautery. The breast was then carefully removed in a medial to lateral fashion, while maintaining adequate hemostasis. Once removed off the chest wall, the right breast mastectomy was then marked with a short and long stitch along the superior and lateral borders of the specimen respectively. The specimen was then passed off for radiology evaluation, where 2 clips were identified within the specimen. Next, we transition to the sentinel lymph node biopsy of the right axilla via the right mastectomy incision. Clavipectoral fascia was divided and the axilla was explored using the neoprobe. A total of 3 sentinel lymph nodes were identified. First node had the ex-vivo count of 7686 and was blue stained. The second [place] [address] and was blue stained. The third node was excised from the level II jesse basin and had the ex-vivo count of 5934 and was blue stained. No other palpable blue or hot sentinel lymph nodes were identified in the axilla. Background counts were less than 100. The sentinel lymph nodes were sent as permanent pathology. Commission on Cancer - Standard 5.3: Holden Node Biopsy Synoptic Operative Reporting Operation performed with curative intent: Yes 2. Tracer(s) u (more content not included)... Normal [facility] SURGICAL PATHOLOGYon 022 ADDENDUM 1: Normal [facility] Comment on above: Order Comment: Speci men Type: DEVICE SPECIMENOrdering Facility: [facility] Address: [address] [place] [phone] Result Comment: Ki-6 7 Immunohistochemical Interpretation in Breast Carcinoma Results: Ki-67 proliferative index: 1 % of invasive carcinoma cells with nuclear positivity Block Number: F5 Tissue Analyzed: Carcinoma Interpretation criteria and sample selection: Ki-67 expression in breast carcinoma is determined in formalin-fixed paraffin embedded tissue, analyzing the entire tissue slide. The percentage of the total invasive carcinoma nuclei with any degree of immunoreactivity are scored and reported as a raw percentage (<1-100%). Untreated breast primary tumor samples should be tested, preferably the core needle biopsy in order to minimize the effects of preanalytical variables (fixative type, cold ischemia time and length of fixation). Methods: Antibody and Detection System: Immunohistochemistry was performed on formalin fixed paraffin-embedded tissue using the rabbit monoclonal antibody 30-9 ([employer], [place], [place]) followed by ultrasensitive bright field detection (Optiview [[employer], [place], [place]]). Control slides: Positive and negative control tissues stained appropriately. Laboratory Developed Test (LDT) Disclaimer: Performance characteristics of immunohistochemical, immunofluorescent and chromogenic in-situ hybridization tests have been determined by the performing laboratory within [facility]???s Rodriguez Richardson [facility] Pathology and Laboratory Medicine [place] ([facility], [facility], [facility] or [facility]) in a manner consistent with CLIA requirements. One or more of these tests have not been cleared or approved by the FDA. [facility] is regulated under CLIA as qualified to perform high-complexity testing. These tests are used for clinical purposes. They should not be regarded as investigational or for research. Positive and negative controls stain appropriately. The diagnostic interpretation was performed at [facility], [address] [place] [address] CLIA# [id number] Addendum electronically signed by Gary Tsang MD on 02/21/2022 at 3:24 PM Performed By: #### S ####[facility] LABORATORYCLIA [id number] [place] [id number] [place] CASE REPORT Normal [facility] Comment on above: Order Comment: Speci men Type: DEVICE SPECIMENOrdering Facility: [facility] Address: [address] [place], [place] [phone] Result Comment: Surg ical Pathology Report Case: [id number] Authorizing Provider: Garry Santos MD Collected: 01/26/2022 02:01 PM Ordering Location: [facility] Received: 01/27/2022 09:40 AM Pathologist: Toya Sanchez MD Specimens: A) - SENTINEL LYMPH NODE LEFT, LEFT SENTINEL LYMPH NODE #1 FORREST RADIOACTIVE 10,056 B) - SENTINEL LYMPH NODE RIGHT, RIGHT SENTINEL LYMPH NODE #1 HOT AND BLUE 7686 C) - SENTINEL LYMPH NODE LEFT, LEFT SENTINEL LYMPH NODE #2 1336 D) - DEVICE, MEDIPORT FOR GROSS EXAMINATION E) - BREAST MASTECTOMY RIGHT, RIGHT BREAST MASTECTOMY SHORT-SUPERIOR LONG-LATERAL F) - BREAST MASTECTOMY LEFT, LEFT BREAST MASTECTOMY SHORT-SUPERIOR LONG-LATERAL G) - BREAST MARGIN RIGHT, RIGHT INFERIOR MEDIAL MARGIN STITCH SHETH NEW MARGIN H) - BREAST MARGIN RIGHT, RIGHT INFERIOR LATERAL STITCH SHETH NEW MARGIN I) - SENTINEL LYMPH NODE RIGHT, RIGHT SENTINEL LYMPH NODE #2 HOT AND BLUE 79978 J) - SENTINEL LYMPH NODE RIGHT, RIGHT SENTINEL LYMPH NODE #3 HOT 5934 K) - BREAST MARGIN LEFT, LEFT BREAST INFERIOR MARGIN L) - LYMPH NODE, left axillary lymph node #3 out at 1748 M) - AXILLARY CONTENTS LEFT, out at 1745 Performed By: #### S ####[facility] LABORATORYCLIA [id number] [place] [id number] [facility] [place] DIAGNOSIS COMMENT Normal [facility] Comment on above: Order Comment: Speci men Type: DEVICE SPECIMENOrdering Facility: [facility] Address: [address] [place], [place] [phone] Result Comment: Symone cted slides A1, A2 and A8 were reviewed at the [facility] breast consensus conference via telepathology on 02/01/22 and Stephanie Tsang and Garry Larios agree with the above findings. Immunohistochemical stain for cytokeratin AE1/AE3 highlights cancerous nodule cells in axillary fat. In part B immunohistochemical stain Cytokeratin AE1/AE3 highlights metastatic tumor cells, immunohistochemical stain for S100 highlights nevus cells. In part E additional deeper levels have been examined on selected blocks. Laboratory Developed Test (LDT) Disclaimer: Performance characteristics of immunohistochemical, immunofluorescent and chromogenic in-situ hybridization tests have been determined by the performing laboratory within [facility]???s Rodriguez Richardson [facility] Pathology and Laboratory Medicine [place] ([facility], [facility], [facility] or [facility]) in a manner consistent with CLIA requirements. One or more of these tests have not been cleared or approved by the FDA. [facility] is regulated under CLIA as qualified to perform high-complexity testing. These tests are used for clinical purposes. They should not be regarded as investigational or for research. Positive and negative controls stain appropriately. Performed By: #### S ####[facility] LABORATORYCLIA [id number] [address] [place] FINAL DIAGNOSIS Normal [facility] Comment on above: Order Comment: Speci men Type: DEVICE SPECIMENOrdering Facility: [facility] Address: [address] [place] [phone] Result Comment: A. L eft axilla, sentinel lymph node #1, FORREST localized excisional biopsy: -- Macrometastatic carcinoma (2.8 cm) in one of four lymph nodes (1/4), status post neoadjuvant chemotherapy. -- Cancerous nodule in axillary fat (0.1 cm) consistent with micrometastatic carcinoma in one lymph node, see comment. B. Right axilla, sentinel lymph node #1, hot and blue, excisional biopsy: -- Micrometastatic carcinoma in two of two lymph nodes (mi/2). -- One lymph node with capsular nevus, see comment. C. Left axilla, sentinel lymph node #2, excisional biopsy: -- Two lymph nodes, negative for metastatic carcinoma (0/2). D. Unspecified site, device removal: -- manager medical device, consistent with Mediport and attached catheter (gross examination only). E. Right breast, mastectomy: -- Residual invasive ductal carcinoma, grade 2, status post neoadjuvant chemotherapy, see case summary and comment. 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 -- Fibroadenomatoid change. -- Fibrocystic change, proliferative type. -- Biopsy site change and clips (x2). -- Nipple, negative for carcinoma. -- Skin with two intradermal nevi. F. Left breast, mastectomy: -- Residual invasive ductal carcinoma, grade 2, status post neoadjuvant chemotherapy, see case summary and comment. 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 -- Fibroadenomatoid change. -- Fibrocystic change, proliferative type. -- Biopsy site change and clip. -- Nipple, negative for carcinoma G. Right breast, inferior medial margin, excision: -- Negative for carcinoma. H. Right breast, inferior lateral margin, excision: -- Negative for carcinoma. I. Right axilla, sentinel lymph node #2, hot and blue, excisional biopsy: -- Two lymph nodes, negative for metastatic carcinoma (0/2). J. Right axilla, sentinel lymph node #3, hot, excisional biopsy: -- One lymph node, negative for metastatic carcinoma (0/1). K. Left breast, inferior margin, excision: -- Negative for carcinoma. L. Left axilla, lymph node #3, excisional biopsy: -- One lymph node, negative for metastatic carcinoma (0/1). M. Left axillary contents, axillary dissection: -- Eight lymph nodes, negative for metastatic carcinoma (0/8). Performed By: #### S ####[facility] LABORATORYCLIA [id number] [place] [address] [place] FINAL PERFORMING LAB [facility] Comment on above: Order Comment: Speci men Type: DEVICE SPECIMENOrdering Facility: [facility] Address: [address] [place] [phone] Result Comment: Diag nostic interpretation performed at [facility], [address] [place] [address] CLIA# [id number] Franchise Broker: Jeanine Grijalva M.D. Performed By: #### S ####[facility] LABORATORYCLIA [id number] [place] [address] [place] [facility] GROSS DESCRIPTION Normal [facility] Comment on above: Order Comment: Speci men Type: DEVICE SPECIMENOrdering Facility: [facility] Address: [address] [place] [phone] Result Comment: A. S ENTINEL LYMPH NODE LEFT Received fresh for frozen section diagnosis labeled left sentinel lymph node #1 Forrest radioactive 10,056 is a cannon, soft fibroadipose tissue segment measuring 4.7 x 3 x 1.3 cm. Palpation reveals 3 possible lymph nodes ranging from 0.7 x 0.4 x 0.2 cm to 2.8 x 2.2 x 1.1 cm. The largest possible lymph node is remarkable for 2 Forrest slab lifting engineer clips. Totally submitted as follows: FS A1-FS A3 largest possible lymph node serially sectioned; FSA 4 1 possible lymph node serially section; FSA 5 1 intact possible lymph node; A6-A8 all remaining soft tissue.. RSA January 26, 2022 4:34 PM B. SENTINEL LYMPH NODE RIGHT B. Received fresh labeled right sentinel lymph node #1 is a yellow-red fatty segment of tissue measuring 2.8 x 2.4 x 1.0 cm. Upon dissection 2 nodules resembling possible lymph nodes are identified measuring 0.9 and 1.2 cm in greatest dimension. The tissue is totally submitted as follows: B1 0.9 cm lymph node serially sectioned and totally submitted, B2 1.2 cm lymph node serially sectioned and totally submitted, B3-B4 remaining fibrofatty tissue totally submitted. KVB January 26, 2022 4:08 PM C. SENTINEL LYMPH NODE LEFT Received fresh labeled left sentinel lymph node #2 is a segment of cannon soft tissue measuring 3.5 x 2.5 x 1.1 cm. Palpation reveals 2 possible lymph nodes measuring 1 x 0.5 x 0.5 cm and 3.2 x 1.7 x 1.5 cm. Total submitted as follows: C1-C3 1 possible lymph node serially sectioned; C4 1 intact possible lymph node; C5 all remaining soft tissue. The specimen is removed from the patient at 1555 hrs. on 01/26/2022 and placed in formalin at 2 PM on 01/26/2022. Gross examination performed at [facility], [address] [facility], [place] [id number] RSA January 26, 2022 4:31 PM D. DEVICE Received fresh labeled Mediport is a port (2.8 x 2.5 x 1.7 cm) with attached catheter (21.2 cm in length by 0.3 cm in diameter). The port has the inscription BARD CT [id number]. No tissue is present or submitted. Gross examination only. E. BREAST MASTECTOMY RIGHT Received in formalin labeled as right breast mastectomy is an oriented mastectomy specimen measuring 24 cm medial to lateral, 18 cm superior to inferior, and 7.5 cm anterior to posterior, weighing 1386 g. The specimen is oriented with a short stitch at the superior margin and long stitch at the lateral margin. The anterior aspect is partially surfaced by wrinkled, lightly pigmented skin measuring 20.5 x 13.6 cm. The skin surface is remarkable for 2 cannon, elevated possible lesions measuring 0.7 x 0.7 cm and 0.7 x 0.4 cm. The smaller lesion abuts the superior radial margin and the larger lesion is located 0.2 cm from the closest superior radial margin. Sectioning reveals the possible skin lesions do not grossly extend below the skin surface. A centrally located nipple is present measuring 1.4 x 1.2 x 0.6 cm. The specimen is inked as follows: Superior radial margin blue, inferior radial margin green, and deep margin black. The specimen is sectioned from lateral to medial to reveal a centrally located ribbon shaped clip embedded within fibrous tissue, located towards 12:00 between the upper inner and outer quadrants 3.2 cm from the closest skin, 5.2 cm from the nipple, 7 cm from the deep margin, 7.5 cm from the closest inferior radial margin, and 12 cm from the closest inferior radial margin. Located 2.3 cm medial and slightly superior to the ribbon clip is an open coil clip embedded within fibrous tissue located between 12:00 and 11:00 in the upper inner quadrant. The open coil clip is located 4.6 cm from the skin, 6.3 cm from the closest superior radial margin, 6.4 cm from the nipple, 6.8 cm from the nipple, and 7.5 cm from the closest inferior radial margin. No other lesions, areas of interest, or biopsy clip are identified. The remaining cut surfaces are predominantly fatty. Plant Manager sections are submitted as follows: E1 ribbon clip site nonmarginal; E2 section immediately lateral to ribbon clip nonmarginal; E3 section immediately medial to ribbon clip nonmarginal; E4 section immediately superior to ribbon clip nonmarginal; E5 section immediately inferior to ribbon clip nonmarginal; E6 section immediately deep to ribbon clip nonmarginal; E7 closest deep margin to ribbon clip; E8 posterior superior radial margin to ribbon clip; E9 closest inferior radial margin to ribbon clip; E10 intervening breast between both clip nonmarginal; E11 section immediately lateral to open coil clip nonmarginal; E12 open coil clip site nonmarginal; E13 section immediately medial to open coil clip nonmarginal; E14 section immediately superior to open coil clip nonmarginal; E15 section immediately inferior to open coil clip nonmarginal; E16 section immediately anterior to open coil clip nonmarginal; E17 closest deep margin to open coil clip; E18 closest superior radial margin to open coil clip; E19 inferior radial margin to op (more content not included)... Performed By: #### S ####[facility] LABORATORYCLIA [id number] [address] STATES OF [facility] INTRAOPERATIVE DIAGNOSIS Normal [facility] Comment on above: Order Comment: Speci men Type: DEVICE SPECIMENOrdering Facility: [facility] Address: [address] [place], [place] [phone] Result Comment: A. S ENTINEL LYMPH NODE LEFT FS A1-FS A5-left sentinel lymph node #1-1 of 3 lymph nodes positive with metastatic carcinoma as follows: FS A1-FS A3 1 lymph node positive for metastatic carcinoma macrometastasis. FSA 4 1 lymph node negative for metastatic carcinoma. FSA 5 1 lymph node negative for metastatic carcinoma. SLL/JLL also on A1 and A4 Intraoperative examination performed at [facility], [address] [place] [address] CLIA# [id number] Performed By: #### S ####[facility] LABORATORYCLIA [id number] [address] [place] OF [place] SYNOPTIC REPORT Normal [facility] Comment on above: Order Comment: Speci men Type: DEVICE SPECIMENOrdering Facility: [facility] Address: [address] [place], [place] [address], [place] [address] Result Comment: INVA SIVFrank CARCINOMA OF THE BREAST: Resection INVASIVE CARCINOMA OF THE BREAST, RESECTION - A, C, F, K, L, M 8th Edition - Protocol posted: 12/09/2020 SPECIMEN Procedure: Total mastectomy Specimen Laterality: Left TUMOR Tumor Site: Upper outer quadrant Histologic Type: Invasive carcinoma of no special type (ductal) Histologic Grade (Wilma Histologic Score): Glandular (Acinar) / Tubular Differentiation: Score 3 Nuclear Pleomorphism: Score 2 Mitotic Rate: Score 1 Overall Grade: Grade 2 (scores of 6 or 7) Tumor Size: Greatest dimension of largest invasive focus (Millimeters): 33.0 mm Ductal Carcinoma In Situ (DCIS): Present : Negative for extensive intraductal component (EIC) Size (Extent) of DCIS: Estimated size (extent) of DCIS is at least (Millimeters): 21 mm Architectural Patterns: Solid Nuclear Grade: Grade II (intermediate) Necrosis: Not identified Lobular Carcinoma In Situ (LCIS): Not identified Lymphovascular Invasion: Present Dermal Lymphovascular Invasion: Not identified Microcalcifications: Present in DCIS Microcalcifications: Present in invasive carcinoma Microcalcifications: Present in non-neoplastic tissue Treatment Effect in the Breast: Probable or definite response to presurgical therapy in the invasive carcinoma Treatment Effect in the Lymph Nodes: No definite response to presurgical therapy in metastatic carcinoma MARGINS Margin Status for Invasive Carcinoma: All margins negative for invasive carcinoma Distance from Invasive Carcinoma to Closest Margin: Greater than: 25 mm Margin Status for DCIS: All margins negative for DCIS Distance from DCIS to Closest Margin: Greater than: 25 mm REGIONAL LYMPH NODES Regional Lymph Node Status: : Tumor present in regional lymph node(s) Number of Lymph Nodes with Macrometastases: 1 Number of Lymph Nodes with Micrometastases: 1 Number of Lymph Nodes with Isolated Tumor Cells: 0 Size of Largest Jesse Metastatic Deposit: 28.0 mm Extranodal Extension: Not identified Total Number of Lymph Nodes Examined (sentinel and non-sentinel): 15 Number of Holden Nodes Examined: 6 PATHOLOGIC STAGE CLASSIFICATION (pTNM, AJCC 8th Edition) Reporting of pT, pN, and (when applicable) pM categories is based on information available to the pathologist at the time the report is issued. As per the AJCC (Chapter 1, 8th Ed.) it is the managing physician???s responsibility to establish the final pathologic stage based upon all pertinent information, including but potentially not limited to this pathology report. TNM Descriptors: y (post-treatment) pT Category: pT2 pN Category: pN1a Breast Biomarker Testing Performed on Previous Biopsy: Estrogen Receptor (ER) Status: Positive (greater than 10% of cells demonstrate nuclear positivity) Percentage of Cells with Nuclear Positivity: 91-100% Breast Biomarker Testing Performed on Previous Biopsy: Progesterone Receptor (PgR) Status: Positive Percentage of Cells with Nuclear Positivity: 41-50% Breast Biomarker Testing Performed on Previous Biopsy: HER2 (by immunohistochemistry): Negative (Score 1+) Testing Performed on INVASIVE CARCINOMA OF THE BREAST: Resection INVASIVE CARCINOMA OF THE BREAST, RESECTION - B, E, G, H, I, J 8th Edition - Protocol posted: 12/09/2020 SPECIMEN Procedure: Total mastectomy Specimen Laterality: Right TUMOR Tumor Site: Upper inner quadrant Tumor Site: Clock position : 2 o'clock Histologic Type: Invasive carcinoma of no special type (ductal) Histologic Grade (Calhoun Histologic Score): Glandular (Acinar) / Tubular Differentiation: Score 3 Nuclear Pleomorphism: Score 2 Mitotic Rate: Score 1 Overall Grade: Grade 2 (scores of 6 or 7) Tumor Size: Greatest dimension of largest invasive focus (Millimeters): 11 mm Tumor Focality: Single focus of invasive carcinoma Ductal Carcinoma In Situ (DCIS): Present : Negative for extensive intraductal component (EIC) Size (Extent) of DCIS: Estimated size (extent) of DCIS is at least (Millimeters): 4 mm Architectural Patterns: Cribriform Nuclear Grade: Grade II (intermediate) Necrosis: Not identified Lobular Carcinoma In Situ (LCIS): Not identified Lymphovascular Invasion: Cannot be determined Dermal Lymphovascular Invasion: Not identified Microcalcifications: Present in DCIS Microcalcifications: Present in non-neoplastic tissue Treatment Effect in the Breast: No definite response to presurgical therapy in the invasive carcinoma Treatment Effect in the Lymph Nodes: No definite response to presurgical therapy in metastatic carcinoma MARGINS Margin Status for Invasive Carcinoma: All margins negative for invasive carcinoma Distance from Invasive Carcinoma to Closest Margin: Greater than: 40 mm Margin Status for DCIS: All margins negative for DCIS Distance from DCIS to Closest Margin: Greater than: 40 mm REGIONAL LYMPH NODES Regional Lymph Node Status: : Tumo (more content not included)... Performed By: #### S ####[facility] LABORATORYCLIA [id number] [place] [address] [place] XR CHEST 1V FRONTAL PORTon 0 01-26-2022 XR CHEST 1V FRONTAL PORT * * *Final Report* * * DATE OF EXAM: Jan 26 2022 7:58PM [id number] [id number] - XR CHEST 1V FRONTAL PORT / PROCEDURE REASON: Post-operative / post-procedure assessment, asymptomatic * * * * Physician Interpretation * * * * EXAMINATION: CHEST RADIOGRAPH (PORTABLE SINGLE VIEW AP) Exam Date/Time: 01/26/2022 7:58 PM CLINICAL HISTORY: Post-operative / post-procedure assessment, asymptomatic MQ: XCPR_5 Comparison: None available. RESULT: Lines, tubes, and devices: There are surgical drains identified overlying the right lower chest, and left mid chest. Scattered foci of gas identified in the soft tissues of the lower chest compatible with postsurgical changes. Lungs and pleura: There are no consolidative infiltrates or pleural effusions. There is no evidence of pneumothorax. Cardiomediastinal silhouette: The cardiomediastinal silhouette appears within normal limits. Calcified left hilar and left mediastinal lymph nodes compatible with remote granulomatous disease. Other: Surgical clips in the left axilla. Visualized portions of the bony thorax appear intact. IMPRESSION: No evidence of acute cardiopulmonary disease. Postsurgical changes in both breasts. [employer] Manager: PSCB Transcribe Date/Time: Jan 26 2022 8:40P Dictated by : DEREK TORRES MD This examination was interpreted and the report reviewed and electronically signed by: DEREK TORRES MD on Jan 26 2022 8:42PM EST [id number] [facility] TRISH GILLILAND ([id number]) 1975 F Date Time Provider Department 01/21/22 DAVID, GARRY H AGGBRCR During your visit today, we recorded the following information about you: Janet Jason MA 01/21/2022 8:54 AM Signed I left a message instructing the patient that her Covid Test was scheduled for Sunday, January 23, 2022 at 11:00 am in [place]. Patient was advised to call the office if she had any further questions. Janet Jason MA Allergies As of Date: 01/21/2022 Noted Allergy Reaction EMEND (FOSAPREPITANT) 07/16/2021 12 - Shortness of Breath PENICILLINS 08/01/2009 7 - Swelling POLYSORBATE 80 09/10/2021 12 - Shortness of Breath TAXOL (PACLITAXEL) 01/19/2022 10 - Anaphylaxis Date Reviewed: 01/19/2022 Reviewed by: Becca Wells APRN.DISPLAYER - Fully Assessed Reason for Visit: Appointment [186] Prescriptions as of 01/21/2022 - biotin 1 mg cap Take 1 mg by mouth once daily. - gabapentin (NEURONTIN) 300 mg capsule Take 1 capsule by mouth three times daily for 90 days. - acetaminophen (TYLENOL) 325 mg tablet Take 650 mg by mouth every 6 hours as needed. - lidocaine-prilocaine (EMLA) 2.5-2.5 % cream Apply to port site 60 minutes prior to accessing. - calcium carbonate/vitamin D3 (TOÑITO-600 WITH VITAMIN D ORAL) Take 1 tablet by mouth once daily. Facility-Administered Medications as of 01/21/2022 - perflutren lipid microspheres 1.3 mL in NaCl (PF) 0.9% 10 mL injection (DEFINITY) - sodium chloride 0.9 % (flush) 10 mL (BD POSIFLUSH) Problem List As Of Date 01/21/2022 Noted Resolved Cholelithiasis NOS [K80.20] 08/01/2009 Bilateral malignant neoplasm of breast in femal*06/30/2021 Malignant neoplasm of overlapping sites of both*07/02/2021 Malignant neoplasm of upper-outer quadrant of l*09/24/2021 Encounter Status:Closed by JANET JASON on 01/21/22 [facility] [place] 01-20-2022 CNPN Telephone ([employer]) TRISH GILLILAND ([id number]) 1975 F Date Time Provider Department 01/20/22 GARRY SANTSO During your visit today, we recorded the following information about you: Allergies As of Date: 01/20/2022 Noted Allergy Reaction EMEND (FOSAPREPITANT) 07/16/2021 12 - Shortness of Breath PENICILLINS 08/01/2009 7 - Swelling POLYSORBATE 80 09/10/2021 12 - Shortness of Breath TAXOL (PACLITAXEL) 01/19/2022 10 - Anaphylaxis Date Reviewed: 01/19/2022 Reviewed by: Becca Wells APRN.DISPLAYER - Fully Assessed Reason for Visit: Orders [681] Primary Visit Diagnosis:Malignant neoplasm of upper-outer quadrant of right female breast, unspecified estrogen receptor status (HCC) [C50.411] Order(s):PRE-PROCEDURE AND PRE-OPERATIVE COVID [SQPOCOVD] Order #: [id number] FUTURE Prescriptions as of 01/20/2022 - biotin 1 mg cap Take 1 mg by mouth once daily. - gabapentin (NEURONTIN) 300 mg capsule Take 1 capsule by mouth three times daily for 90 days. - acetaminophen (TYLENOL) 325 mg tablet Take 650 mg by mouth every 6 hours as needed. - lidocaine-prilocaine (EMLA) 2.5-2.5 % cream Apply to port site 60 minutes prior to accessing. - calcium carbonate/vitamin D3 (TOÑITO-600 WITH VITAMIN D ORAL) Take 1 tablet by mouth once daily. Facility-Administered Medications as of 01/20/2022 - perflutren lipid microspheres 1.3 mL in NaCl (PF) 0.9% 10 mL injection (DEFINITY) - sodium chloride 0.9 % (flush) 10 mL (BD POSIFLUSH) Problem List As Of Date 01/20/2022 Noted Resolved Cholelithiasis NOS [K80.20] 08/01/2009 Bilateral malignant neoplasm of breast in femal*06/30/2021 Malignant neoplasm of overlapping sites of both*07/02/2021 Malignant neoplasm of upper-outer quadrant of l*09/24/2021 Encounter Status:Closed by GARRY SANTOS on 01/20/[address] [facility] HISTORY PHYSICALon HISTORY PHYSICAL HNO ID: [id number] Author: Becca Wells APRN.DISPLAYER Service: ? Author Type: Nurse Practitioner Type: HANDP Filed: 01/19/2022 2:04 PM Note Text: HISTORY AND PHYSICAL EXAMINATION SERVICE DATE: 01/19/2022 SERVICE TIME: 1:53 PM PRIMARY CARE PHYSICIAN: Jeanine Caceres MD, MD REASON FOR VISIT: Trish Gilliland is a 46 year old female who is scheduled for Procedure(s) with comments: MASTECTOMY SIMPLE BILATERAL (Bilateral) - ERAS PROTOCOL, PEC BLOCK PLACEMENT OF BREAST LOCALIZATION DEVICE(S) PERCUTANEOUS; FIRST LESION, ULTRASOUND GUIDANCE FORREST FISHER LOBSTER (Bilateral) BIOPSY BREAST SENTINEL NODE (Bilateral) BIOPSY BREAST WITH FROZEN SECTIONS (Bilateral) INJECTION PROCEDURE RADIOACTIVE TRACER FOR IDENTIFICATION OF SENTINEL NODE (Bilateral) INTRAOPERATIVE ID OF SENTINEL LYMPH NODE(S) INCL'D INJECTION OF NON-RAD DYE WHEN PERFORMED (Bilateral) LYMPHADENECTOMY AXILLARY COMPLETE (Left) EXCISION LEFT AXILLARY SOFT TISSUE MASS (Left) MASTECTOMY SIMPLE BILATERAL (Bilateral) at the request of Dr. Garry Santos for routine HANDP. My final recommendation will be communicated back to the requesting physician by way of shared medical record or letter. Subjective The patient has the following: ACTIVE PROBLEM LIST Calculus of Gallbladder Without Mention of Cholecystitis Or Obstruction Bilateral Malignant Neoplasm of Breast in Female (Hcc) Malignant Neoplasm of Overlapping Sites of Both Breasts in Female, Estrogen Receptor Positive (Hcc) Malignant Neoplasm of Upper-Outer Quadrant of Left Breast in Female, Estrogen Receptor Positive (Hcc) COVID-19 Immunization Status Overdue - COVID-19 VACCINE (1) Overdue - never done No completion, postpone, frequency change, or communication history exists for this topic. CHIEF COMPLAINT: pre-op exam HPI: Trish is a 46 year old female who presents for presurgical testing. She was diagnosed with bilateral breast cancer in June of this year. She has been undergoing chemotherapy and her last treatment was in October. She was referred to the breast surgeon, discussed options and is agreeable to surgical intervention. REVIEW OF SYSTEMS: General: No weight loss, malaise or fevers. Neurological: Positive for: peripheral neuropathy. Negative for: headaches, seizures and strokes. Respiratory: Negative for: asthma, COPD, current cough, dyspnea, tobacco use and obstructive sleep apnea. Cardiovascular: Negative for: anticoagulation therapy, arrhythmia, atrial fibrillation, CAD, chest pain, CHF, DVT/PE, hyperlipidemia and hypertension. GI: Negative for: abdominal pain, dysphagia, nausea and vomiting. : Negative for: frequent urination, hematuria and urgency. Endocrine: Negative for: diabetes mellitus, hyperthyroidism, hypothyroidism and hyperparathyroidism. Hematology: Negative for: anemia, bruises/bleeds easily and chronic anti-coagulation/platel et meds. Oncology: See HPI. No history of CA metastasis, chemo within 30 days, or radiotherapy within 90 days. No history of oncological symptoms or problems. Psych: Negative for: anxiety and depression. Musculoskeletal: Positive for: joint pain (right elbow). Skin: Negative for lesions, rash and itching. 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, left (HCC) 06/18/2021 dx at [facility] by Dr.Anthony Jacquie Mendez (spontaneous vaginal delivery) 2003 PAST SURGICAL HISTORY Procedure Laterality Date BREAST BIOPSY HX Bilateral 06/16/2021 BIlateral breast cancer LAPS SURG CHOLECYSTECTOMY W/CHOLANGIOGRAPHY 08/04/2009 Normal [facility] PORT 06/2021 chest TONSILLECTOMY AND ADENOIDECTOMY FAMILY HISTORY Problem Relation Age of Onset Breast Cancer Maternal Grandmother Right mast, recurrance on right (age 52), at 53 Cervical Cancer Maternal Grandmother Dx 1963 Uterine Cancer Maternal Grandmother Skin Cancer Maternal Grandfather Skin Cancer Paternal Grandfather decsd from [place] Diabetes Son Skin Cancer Maternal Aunt Social History Tobacco Use Smoking status: Never Smokeless tobacco: Never Vaping Use Vaping Use: Never used Substance Use Topics Alcohol use: No Drug use: No Comment: no medical [facility] card Prior to Admission medications as of 01/19/22 1333 Medication Sig Last Dose Taking gabapentin (NEURONTIN) 300 mg capsule Take 1 capsule by mouth three times daily for 90 days. Yes acetaminophen (TYLENOL) 325 mg tablet Take 650 mg by mouth every 6 hours as needed. Taking Yes calcium carbonate/vitamin D3 (TOÑITO-600 WITH VITAMIN D ORAL) Take 1 tablet by mouth once daily. Taking Yes biotin 1 mg cap Take 1 mg by mouth once daily. lidocaine-prilocaine (EMLA) 2.5-2.5 % cream Apply to port site 60 minut (more content not included)... Normal [facility] CNOVon 12-09-2021 CNOV Office Visit (AGGBR R) TRISH GILLILAND ([id number]) 1975 F Date Time Provider Department 12/09/21 3:00 PM GARRY SANTOS During your visit today, we recorded the following information about you: Pulse Blood pressure Weight Height 69/minute 141/63 111.6 kg 1.715 m Garry Santos MD 12/09/2021 5:37 PM Signed Chief Complaint: Patient presents with: Breast Cancer HISTORY OF PRESENT ILLNESS: Trish Gilliland is a 46 year old female who presents for an evaluation of bilateral breast cancer. Patient would like to have bilateral mastectomies and is not interested in reconstruction. Patient states she only could feel the mass in her left breast and states she can only feel it a small amount. Patient states the left lymph node is no longer swollen. 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, left (HCC) 06/18/2021 dx at [facility] by Dr.Anthony Jacquie Mendez PAST SURGICAL HISTORY Procedure Laterality Date - BREAST BIOPSY HX Bilateral 06/16/2021 BIlateral breast cancer - LAPS SURG CHOLECYSTECTOMY W/CHOLANGIOGRAPHY 08/04/2009 Normal [facility] Social History Tobacco Use - Smoking status: Never Smoker - Smokeless tobacco: Never Used Vaping Use - Vaping Use: Never used Substance Use Topics - Alcohol use: No - Drug use: No FAMILY HISTORY Problem Relation Age of Onset - Breast Cancer Maternal Grandmother Right mast, recurrance on right (age 52), at 53 - Cervical Cancer Maternal Grandmother Dx 1963 - Uterine Cancer Maternal Grandmother - Skin Cancer Maternal Grandfather - Skin Cancer Paternal Grandfather decsd from [place] - Diabetes Son - Skin Cancer Maternal Aunt ALLERGIES Allergen Reactions - Emend [Fosaprepitan* Shortness of Breath - Penicillins - Polysorbate 80 Shortness of Breath Current Outpatient Medications Medication Sig - acetaminophen (TYLENOL) 325 mg tablet Take 650 mg by mouth every 6 hours as needed. - lidocaine-prilocaine (EMLA) 2.5-2.5 % cream Apply to port site 60 minutes prior to accessing. - calcium carbonate/vitamin D3 (TOÑITO-600 WITH VITAMIN D ORAL) Take 1 tablet by mouth once daily. - gabapentin (NEURONTIN) 300 mg capsule Take 1 capsule by mouth three times daily for 90 days. (Patient not taking: Reported on 12/09/2021) Current Facility-Administered Medications Medication Dose Route Frequency - perflutren lipid microspheres 1.3 mL in NaCl (PF) 0.9% 10 mL injection (DEFINITY) INTRAVENOUS DIRECTED PRN - sodium chloride 0.9 % (flush) 10 mL (BD POSIFLUSH) 10 mL INTRAVENOUS DIRECTED PRN PHYSICAL EXAM: BP 141/63 Pulse 69 Ht 5' 7.5 (1.72m) Wt 246 lb (111.6kg) LMP 06/05/2021 BMI 37.94 kg/(m2). General Appearance: Well appearing, alert, in no acute distress, well-hydrated, well nourished. Skin: Negative for jaundice or pallor. Lungs: Normal respirations Musculoskeletal: No soft tissue edema with normal range of motion Breast Exam: Right No palpable masses, only diffuse fibrocystic changes without nipple discharge or axillary adenopathy Left 1.5 cm mass at 12:00 at areola skin junction, significantly decreased from prechemo therapy. There is no nipple discharge or additional masses. No palpable axillary adenopathy. There is a fullness in the left axilla consistent with soft tissue such as a lipoma or accessory breast tissue measuring approximately 3 x 4 cm. The Forrest slab lifting engineer located in the left axilla is functional just lateral to the left pectoralis in the level 1 axilla.. Data Reviewed: 1. prebiopsy breast imaging 2. Postbiopsy breast imaging 3. Recent MRI report and imaging ASSESSMENT/PLAN: 1. 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, estrogen receptor positive (HCC) - ICD9: 174.4, V86.0, ICD10: C50.411, Z17.0, C50.412 (primary diagnosis) -The patient has decided to proceed with bilateral mastectomy without reconstruction. She declines reconstruction at this time. We will proceed with bilateral sentinel lymph node biopsy with frozen section on the left side, possible axillary dissection. She also has the accessory tissue in the left axilla which we may be able to remove at the time through the mastectomy incision per her request.Risks, benefits, options and potential complications of modified radical mastectomy including risk of myocardial infarction, stroke, pulmonary embolism, DVT, infection, bleeding, seroma formation, nerve injury, and early or delayed lymphedema are reviewed in detail with the patient and all questions are answered. We discussed pre-and postoperative care i (more content not included)... Normal [facility] CBC W Auto Differential pane l (Bld)on 12-07-2021 Abs Immature Gran <0.03 <0.10 k/uL [facility] Basophils (Bld) [#/Vol] 0.06 10*3/uL <0.11 k/uL [facility] Basophils/100 WBC (Bld) 1.1 % C [facility] Differential cell count method Nom (Bld) Auto [facility] Eosinophils (Bld) [#/Vol] 0.57 10*3/uL High <0.46 k/uL [facility] Eosinophils/100 WBC (Bld) 10.8 % [facility] Erythrocyte distribution width (RBC) [Ratio] 12.0 % 11.5 - 15.0 % [facility] Hematocrit (Bld) [Volume fraction] 39.6 % 36.0 - 46.0 % [facility] Hemoglobin (Bld) [Mass/Vol] 13.1 g/dL 11.5 - 15.5 g/dL [facility] Immature Gran % 0.2 % [facility] Lymphocytes (Bld) [#/Vol] 1.55 10*3/uL 1.00 - 4.00 k/uL [facility] Lymphocytes/100 WBC (Bld) 29.2 % [facility] MCH (RBC) [Entitic mass] 29.4 pg 26.0 - 34.[address] [facility] MCHC (RBC) [Mass/Vol] 33.1 g/dL 30.5 - 36.0 g/dL [facility] MCV (RBC) [Entitic vol] 89.0 fL 80.0 - 100.[address] [facility] Monocytes (Bld) [#/Vol] 0.48 10*3/uL <0.87 k/uL [facility] Monocytes/100 WBC (Bld) 9.1 % C [facility] Neutrophils (Bld) [#/Vol] 2.63 10*3/uL 1.45 - 7.50 k/uL [facility] Neutrophils/100 WBC (Bld) 49.6 % [facility] Nucleated RBC (Bld) [#/Vol] 10*3/uL <0.01 k/uL [facility] Nucleated RBC/100 WBC (Bld) [Ratio] 0.0 /[address] [facility] Platelet mean volume (Bld) [Entitic vol] 8.9 fL Low 9.0 - 12.[address] [facility] Platelets (Bld) [#/Vol] 306 10*3/uL 150 - 400 k/uL [facility] RBC (Bld) [#/Vol] 4.45 10*6/uL 3.90 - 5.2 0 m/uL [facility] WBC (Bld) [#/Vol] 5.30 10*3/uL 3.70 - 11. 00 k/uL [facility] Comprehensive metabolic 2000 panelon 12-07-2021 Albumin [Mass/Vol] 4.3 g/dL 3.9 - 4.9 g/dL [facility] ALP [Catalytic activity/Vol] 63 U/L 34 - 123 U/L [facility] ALT [Catalytic activity/Vol] 35 U/L 7 - 38 U/L [facility] Anion gap [Moles/Vol] 12 mmol/L 9 - 18 mmol/L [facility] AST [Catalytic activity/Vol] 22 U/L 13 - 35 U/L [facility] Bilirubin [Mass/Vol] 0.2 mg/dL 0.2 - 1 .3 mg/dL [facility] Calcium [Mass/Vol] 9.4 mg/dL 8.5 - 10. 2 mg/dL [facility] Chloride [Moles/Vol] 104 mmol/L 97 - 10 5 mmol/L [facility] CO2 [Moles/Vol] 25 mmol/L 22 - 30 mmol/L [facility] Creatinine [Mass/Vol] 0.62 mg/dL 0.58 - 0.96 mg/dL [facility] Estimated Glomerular Filtration Rate 111 mL/min/1.73m >=60 mL/min/1.73m [facility] Glucose [Mass/Vol] 105 mg/dL High 74 - 99 mg/dL [facility] Potassium [Moles/Vol] 4.0 mmol/L 3.7 - 5.1 mmol/L [facility] Protein [Mass/Vol] 6.7 g/dL 6.3 - 8.0 g/dL [facility] Sodium [Moles/Vol] 141 mmol/L 136 - 144 mmol/L [facility] Urea nitrogen [Mass/Vol] 12 mg/dL 7 - 21 mg/dL [facility] ALLIED HEALTHon 12-06-2021 [facility] HNO ID: [id number] Author: Lottie Jacobs RT(R) Service: Radiology Author Type: Technologist Type: [facility] Filed: 12/06/2021 10:04 AM Note Text: Radiology Service Progress Note DATE OF SERVICE: December 06, 2021 TIME: 10:03 AM PATIENT IDENTITY VERIFICATION COMPLETED USING TWO (2) STANDARD IDENTIFIERS: Name and Date of confirmed by patient verbally and Name and Date of confirmed by identification band. FALL SCREENING: Has the patient had 2 falls in the last year or 1 fall with injury or currently using an Ambulatory Assistive Device (Walker, Cane, Wheelchair, Crutches, etc.)? No PATIENT GENDER DATA: Female. status: : No status: NO. PATIENT RELEVANT IMPLANT DATA REVIEWED: Not Applicable ALLERGIES: Reviewed and unchanged CONTRAST ALLERGY: NO. EXAM: MRI - CONTRAST TYPE: GROUP II PERIPHERAL IV DATA: Ambulatory: A peripheral IV was started in the Right antecubital site with a Angio cath: 22 gauge. RADIOLOGY DEPARTMENT: MR; Exam(s) Completed: Chest: Breast SIGNATURE: RT Richelle(R) PATIENT NAME: Trish Gilliland DATE: December 06, 2021 TIME: 10:[address] [facility] MRI BREAST WO/W IVCON BILon 12-06-2021 MRI BREAST WO/W IVCON SHARRI * * *Final Report* * * DATE OF EXAM: Dec 06 2021 10:02AM AWM [id number] - MRI BREAST WO/W IVCON SHARRI / PROCEDURE REASON: multiple diagnoses * * * * Physician Interpretation * * * * #[id number] - MRI BREAST WO/W IVCON SHARRI BREAST MRI OF BOTH BREASTS- WITH CAD: 12/06/2021 HISTORY: Known breast cancer. Evaluation for chemotherapy response. RESULT: Comparison is made to exams dated: 07/06/2021 mammogram, 07/06/2021 localization, 07/02/2021 mammogram - [facility], 06/16/2021 ultrasound, 06/15/2021 mammogram, and 06/21/2021 breast MRI. Interpretation of this MRI was correlated with available mammograms, ultrasounds, previous MRI scans, and clinical information. MRI images were obtained with a dedicated breast coil. Post processing was performed including 3D multiplanar reconstruction. TECHNIQUE: MRI images were obtained with a dedicated breast coil. The patient was studied using the dedicated breast coil in the Siemens 1.5 Belen scanner. Initial axial STIR imaging was carried out followed by axial T1-weighted GRE imaging both before and after IV administration of 20 ml of Dotarem. Subsequently, subtraction imaging and 3-D reconstruction were completed on an independent workstation. An additional 4 minute high resolution sequence was performed after the first two 1 minute post-contrast sequences. RESULT: There is scattered fibroglandular tissue in both breasts. Bilateral background breast enhancement is mild. Current study was also evaluated with a Computer Aided Detection (CAD) system. There is 0.7 cm irregular mass with an irregular margin in the right breast at 2 o'clock middle depth. This shows delayed persistent type vascular enhancement. The abnormality is best seen on the subtraction axial 104 slice. This correlates as seen on breast MRI, with mammography, and ultrasound findings. There is associated biopsy clip. This previously measured up to 1.2 cm. There is 2.7 cm x 6.6 cm x 2.5 cm irregular mass with an irregular margin in the left breast at 12 o'clock anterior depth. This shows heterogeneous enhancement and rapid initial rise and delayed washout type vascular enhancement. The abnormality is best seen on the subtraction axial 107 slice. This correlates as seen on breast MRI, with mammography, and ultrasound findings. There is associated biopsy clip. This is previously documented to measure 3.4 x 2.7 x 3.6 cm. Note that although precise measurements differ due to technical differences between the current and prior MRI exam, the mass is indeed mildly decreased in size. There are persistent surrounding foci, likely satellite lesions. No evidence of disease involvement of the overlying skin or nipple. Note that a 2.1 cm enlarged left axillary lymph node persists. This contains a biopsy clip and represents biopsy proven metastatic disease. It is mildly decreased in size, previously measuring up to 2.6 cm. No additional adenopathy noted in the remainder of the left axilla, right axilla or within the internal mammary nodes regions. IMPRESSION: KNOWN BIOPSY PROVEN MALIGNANCY Overall positive response to olamide-adjuvant chemotherapy. The 0.7 cm irregular mass in the right breast at 2 o'clock middle depth is consistent with the known carcinoma and is a known biopsy positive for malignancy. A surgical consult is recommended. This is mildly decreased in size, previously measuring up to 1.2 cm. - No right axillary or internal mammary adenopathy. The 2.7 cm x 6.6 cm x 2.5 cm irregular mass in the left breast at 12 o'clock anterior depth is consistent with the known carcinoma and is a known biopsy positive for malignancy. A surgical consult is recommended. (previously documented measuring 3.4 x 2.7 x 3.6 cm) Note that although precise measurements differ due to technical differences between the current and prior MRI exam, the mass is mildly decreased in size. There are persistent surrounding foci, likely satellite lesions. - Known metastatic left axillary lymph node, also mildly decreased in size. - No left internal mammary adenopathy. SUMMARY: The patient is under the care of Dr. Santos for the above results and surgical planning. Kateryna loza/ignacio:12/06/2021 12:51:56 Audio Specialist(s): Janet Ferro, RT(R), [facility] MRI BI-RADS: 6 Known biopsy proven malignancy Multiple national specialty organizations have released breast cancer screening guidelines for women at average risk for developing breast cancer - guidelines that are based on both evidence and opinion, yet differ on when to start and how often to screen for breast cancer. With representation from Breast Imaging, Internal Medicine, Women's Health, Family Medicine, and Medical/Surgical Oncology, the [facility] has carefully reviewed the data and reached the following consensus: 1) All women should engage in shared decisio (more content not included)... Normal [facility] MRI BREAST WO/W IVCON BILATo n 12-06-2021 [facility] CBC W Auto Differential pane l (Bld)on 11-19-2021 Abs Immature Gran <0.03 <0.10 k/uL [facility] Basophils (Bld) [#/Vol] 0.04 10*3/uL <0.11 k/uL [facility] Basophils/100 WBC (Bld) 0.6 % C [facility] Differential cell count method Nom (Bld) Auto [facility] Eosinophils (Bld) [#/Vol] 0.06 10*3/uL <0.46 k/uL [facility] Eosinophils/100 WBC (Bld) 0.9 % [facility] Erythrocyte distribution width (RBC) [Ratio] 11.8 % 11.5 - 15.0 % [facility] Hematocrit (Bld) [Volume fraction] 39.0 % 36.0 - 46.0 % [facility] Hemoglobin (Bld) [Mass/Vol] 13.2 g/dL 11.5 - 15.5 g/dL [facility] Immature Gran % 0.2 % [facility] Lymphocytes (Bld) [#/Vol] 1.47 10*3/uL 1.00 - 4.00 k/uL [facility] Lymphocytes/100 WBC (Bld) 22.8 % [facility] MCH (RBC) [Entitic mass] 30.3 pg 26.0 - 34.[address] [facility] MCHC (RBC) [Mass/Vol] 33.8 g/dL 30.5 - 36.0 g/dL [facility] MCV (RBC) [Entitic vol] 89.7 fL 80.0 - 100.[address] [facility] Monocytes (Bld) [#/Vol] 0.53 10*3/uL <0.87 k/uL [facility] Monocytes/100 WBC (Bld) 8.2 % C [facility] Neutrophils (Bld) [#/Vol] 4.34 10*3/uL 1.45 - 7.50 k/uL [facility] Neutrophils/100 WBC (Bld) 67.3 % [facility] Nucleated RBC (Bld) [#/Vol] 10*3/uL <0.01 k/uL [facility] Nucleated RBC/100 WBC (Bld) [Ratio] 0.0 /[address] [facility] Platelet mean volume (Bld) [Entitic vol] 8.8 fL Low 9.0 - 12.[address] [facility] Platelets (Bld) [#/Vol] 318 10*3/uL 150 - 400 k/uL [facility] RBC (Bld) [#/Vol] 4.35 10*6/uL 3.90 - 5.2 0 m/uL [facility] WBC (Bld) [#/Vol] 6.45 10*3/uL 3.70 - 11. 00 k/uL [facility] Comprehensive metabolic 2000 panelon 11-11-2021 Albumin [Mass/Vol] 4.4 g/dL 3.9 - 4.9 g/dL [facility] ALP [Catalytic activity/Vol] 59 U/L 34 - 123 U/L [facility] ALT [Catalytic activity/Vol] 33 U/L 7 - 38 U/L [facility] Anion gap [Moles/Vol] 12 mmol/L 9 - 18 mmol/L [facility] AST [Catalytic activity/Vol] 20 U/L 13 - 35 U/L [facility] Bilirubin [Mass/Vol] 0.3 mg/dL 0.2 - 1 .3 mg/dL [facility] Calcium [Mass/Vol] 9.6 mg/dL 8.5 - 10. 2 mg/dL [facility] Chloride [Moles/Vol] 104 mmol/L 97 - 10 5 mmol/L [facility] CO2 [Moles/Vol] 25 mmol/L 22 - 30 mmol/L [facility] Creatinine [Mass/Vol] 0.63 mg/dL 0.58 - 0.96 mg/dL [facility] Estimated Glomerular Filtration Rate 110 mL/min/1.73m >=60 mL/min/1.73m [facility] Glucose [Mass/Vol] 101 mg/dL High 74 - 99 mg/dL [facility] Potassium [Moles/Vol] 3.4 mmol/L Low 3.7 - 5.1 mmol/L [facility] Protein [Mass/Vol] 6.9 g/dL 6.3 - 8.0 g/dL [facility] Sodium [Moles/Vol] 141 mmol/L 136 - 144 mmol/L [facility] Urea nitrogen [Mass/Vol] 11 mg/dL 7 - 21 mg/dL [facility] CBC W Auto Differential pane l (Bld)on 11-05-2021 Abs Immature Gran <0.03 <0.10 k/uL [facility] Basophils (Bld) [#/Vol] 10*3/uL <0.11 k/[facility]L [facility] Bas[facility]/100 WBC (Bld) 0.5 % C [facility] Differential cell count method Nom (Bld) Auto [facility] Eosinophils (Bld) [#/Vol] 0.12 10*3/uL <0.46 k/uL [facility] Eosinophils/100 WBC (Bld) 3.1 % [facility] Erythrocyte distribution width (RBC) [Ratio] 12.2 % 11.5 - 15.0 % [facility] Hematocrit (Bld) [Volume fraction] 35.2 % Low 36.0 - 46.0 % [facility] Hemoglobin (Bld) [Mass/Vol] 11.9 g/dL 11.5 - 15.5 g/dL [facility] Immature Gran % 0.3 % [facility] Lymphocytes (Bld) [#/Vol] 0.92 10*3/uL Low 1.00 - 4.00 k/uL [facility] Lymphocytes/100 WBC (Bld) 23.9 % [facility] MCH (RBC) [Entitic mass] 31.0 pg 26.0 - 34.[address] [facility] MCHC (RBC) [Mass/Vol] 33.8 g/dL 30.5 - 36.0 g/dL [facility] MCV (RBC) [Entitic vol] 91.7 fL 80.0 - 100.[address] [facility] Monocytes (Bld) [#/Vol] 0.27 10*3/uL <0.87 k/uL [facility] Monocytes/100 WBC (Bld) 7.0 % [facility] Neutrophils (Bld) [#/Vol] 2.51 10*3/uL 1.45 - 7.50 k/uL [facility] Neutrophils/100 WBC (Bld) 65.2 % [facility] Nucleated RBC (Bld) [#/Vol] 10*3/uL <0.01 k/uL [facility] Nucleated RBC/100 WBC (Bld) [Ratio] 0.0 /[address] [facility] Platelet mean volume (Bld) [Entitic vol] 8.9 fL Low 9.0 - 12.[address] [facility] Platelets (Bld) [#/Vol] 376 10*3/uL 150 - 400 k/uL [facility] RBC (Bld) [#/Vol] 3.84 10*6/uL Low 3.90 - 5.2 0 m/uL [facility] WBC (Bld) [#/Vol] 3.85 10*3/uL 3.70 - 11. 00 k/uL [facility] CNPNon 11-03-2021 CNPN Telephone ([employer]) TRISH GILLILAND ([id number]) 1975 F Date Time Provider Department 11/03/21 GARRY SANTOS [facility] [facility] During your visit today, we recorded the following information about you: Allergies As of Date: 11/03/2021 Noted Allergy Reaction EMEND (FOSAPREPITANT) 07/16/2021 12 - Shortness of Breath PENICILLINS 08/01/2009 POLYSORBATE 80 09/10/2021 12 - Shortness of Breath Date Reviewed: 10/29/2021 Reviewed by: Mary Marin RN - Fully Assessed Reason for Visit: Orders [681] Cmt: MRI Breast- Post Chemo Primary Visit Diagnosis: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 No IV access, insert saline lock prior to the beginning of sedation, infusion, injection of imaging exam. Discontinue saline lock post exam. If Pt has a central line or IVAD, may access for administration according to line specific nursing protocol. Once exam is complete flush line and de-access according to line specific nursing protocol in the MR contrast administration guidelines linkDisp: 1 EachRfl: 0 Prescriptions as of 11/03/2021 - iv contrast (will be provided with radiology test) MRI Breast SHARRI Inject, intravenously, once for 1 dose. No IV access, insert saline lock prior to the beginning of sedation, infusion, injection of imaging exam. Discontinue saline lock post exam. If Pt has a central line or IVAD, may access for administration according to line specific nursing protocol. Once exam is complete flush line and de-access according to line specific nursing protocol in the MR contrast administration guidelines link - predniSONE (DELTASONE) 20 mg tablet Take 1 tablet the evening prior to and the morning of each chemotherapy treatment. - furosemide (LASIX) 20 mg tablet TAKE 1 TABLET BY MOUTH EVERY DAY - gabapentin (NEURONTIN) 300 mg capsule Take 1 capsule by mouth three times daily for 90 days. - acetaminophen (TYLENOL) 325 mg tablet Take 650 mg by mouth every 6 hours as needed. - OLANZapine (ZYPREXA) 10 mg tablet Take 1 tablet by mouth daily at bedtime. for 4 nights beginning the night of chemotherapy treatment. - omeprazole (PRILOSEC) 40 mg capsule TAKE 1 CAPSULE BY MOUTH ONCE DAILY - lidocaine-prilocaine (EMLA) 2.5-2.5 % cream Apply to port site 60 minutes prior to accessing. - promethazine (PHENERGAN) 25 mg tablet Take 1 tablet by mouth every 6 hours as needed. FOR NAUSEA - dexAMETHasone (DECADRON) 4 mg tablet Take 1 tablet by mouth twice daily with meals. on the second, third and fourth day after each chemotherapy treatment. - ibuprofen (MOTRIN) 200 mg tablet Take 400 mg by mouth every 8 hours as needed. - calcium carbonate/vitamin D3 (TOÑITO-600 WITH VITAMIN D ORAL) Take 1 tablet by mouth once daily. Facility-Administered Medications as of 11/03/2021 - perflutren lipid microspheres 1.3 mL in NaCl (PF) 0.9% 10 mL injection (DEFINITY) - sodium chloride 0.9 % (flush) 10 mL (BD POSIFLUSH) Problem List As Of Date 11/03/2021 Noted Resolved Cholelithiasis NOS [K80.20] 08/01/2009 Bilateral malignant neoplasm of breast in femal*06/30/2021 Malignant neoplasm of overlapping sites of both*07/02/2021 Malignant neoplasm of upper-outer quadrant of l*09/24/2021 Prescriptions ordered this encounter Disp Refills Start End IV CONTRAST (RADIOLOGY PROCEDURE) 1 Ea* 0 11/03/2021 11/04/2021 Class: In Office Sig: MRI Breast SHARRI Inject, intravenously, once for 1 dose. No IV access, insert saline lock prior to the beginning of sedation, infusion, injection of imaging exam. Discontinue saline lock post exam. If Pt has a central line or IVAD, may access for administration according to line specific nursing protocol. Once exam is complete flush line and de-access according to line specific nursing protocol in the MR contrast administration guidelines link Encounter Status:Closed by GARRY SANTOS on 11/03/[address] [facility] CBC W Auto Differential pane l (Bld)on 10-29-2021 Abs Immature Gran 0.03 k/uL <0.10 k/uL [facility] Basophils (Bld) [#/Vol] 0.03 10*3/uL <0.11 k/uL [facility] Basophils/100 WBC (Bld) 0.6 % C [facility] Differential cell count method Nom (Bld) Auto [facility] Eosinophils (Bld) [#/Vol] 0.04 10*3/uL <0.46 k/uL [facility] Eosinophils/100 WBC (Bld) 0.8 % [facility] Erythrocyte distribution width (RBC) [Ratio] 12.4 % 11.5 - 15.0 % [facility] Hematocrit (Bld) [Volume fraction] 35.7 % Low 36.0 - 46.0 % [facility] Hemoglobin (Bld) [Mass/Vol] 12.0 g/dL 11.5 - 15.5 g/dL [facility] Immature Gran % 0.6 % [facility] Lymphocytes (Bld) [#/Vol] 1.09 10*3/uL 1.00 - 4.00 k/uL [facility] Lymphocytes/100 WBC (Bld) 22.5 % [facility] MCH (RBC) [Entitic mass] 30.8 pg 26.0 - 34.[address] [facility] MCHC (RBC) [Mass/Vol] 33.6 g/dL 30.5 - 36.0 g/dL [facility] MCV (RBC) [Entitic vol] 91.5 fL 80.0 - 100.[address] [facility] Monocytes (Bld) [#/Vol] 0.17 10*3/uL <0.87 k/uL [facility] Monocytes/100 WBC (Bld) 3.5 % C [facility] Neutrophils (Bld) [#/Vol] 3.48 10*3/uL 1.45 - 7.50 k/uL [facility] Neutrophils/100 WBC (Bld) 72.0 % [facility] Nucleated RBC (Bld) [#/Vol] 10*3/uL <0.01 k/uL [facility] Nucleated RBC/100 WBC (Bld) [Ratio] 0.0 /[address] [facility] Platelet mean volume (Bld) [Entitic vol] 8.9 fL Low 9.0 - 12.[address] [facility] Platelets (Bld) [#/Vol] 387 10*3/uL 150 - 400 k/uL [facility] RBC (Bld) [#/Vol] 3.90 10*6/uL 3.90 - 5.2 0 m/uL [facility] WBC (Bld) [#/Vol] 4.84 10*3/uL 3.70 - 11. 00 k/uL [facility] CBC W Auto Differential pane l (Bld)on 09-30-2021 Abs Immature Gran <0.03 <0.10 k/uL [facility] Basophils (Bld) [#/Vol] 0.07 10*3/uL <0.11 k/uL [facility] Basophils/100 WBC (Bld) 1.3 % C [facility] Differential cell count method Nom (Bld) Auto [facility] Eosinophils (Bld) [#/Vol] 0.69 10*3/uL High <0.46 k/uL [facility] Eosinophils/100 WBC (Bld) 13.0 % [facility] Erythrocyte distribution width (RBC) [Ratio] 13.9 % 11.5 - 15.0 % [facility] Hematocrit (Bld) [Volume fraction] 37.2 % 36.0 - 46.0 % [facility] Hemoglobin (Bld) [Mass/Vol] 12.4 g/dL 11.5 - 15.5 g/dL [facility] Immature Gran % 0.4 % [facility] Lymphocytes (Bld) [#/Vol] 1.61 10*3/uL 1.00 - 4.00 k/uL [facility] Lymphocytes/100 WBC (Bld) 30.3 % [facility] MCH (RBC) [Entitic mass] 31.2 pg 26.0 - 34.[address] [facility] MCHC (RBC) [Mass/Vol] 33.3 g/dL 30.5 - 36.0 g/dL [facility] MCV (RBC) [Entitic vol] 93.7 fL 80.0 - 100.[address] [facility] Monocytes (Bld) [#/Vol] 0.73 10*3/uL <0.87 k/uL [facility] Monocytes/100 WBC (Bld) 13.7 % C [facility] Neutrophils (Bld) [#/Vol] 2.19 10*3/uL 1.45 - 7.50 k/uL [facility] Neutrophils/100 WBC (Bld) 41.3 % [facility] Nucleated RBC (Bld) [#/Vol] 10*3/uL <0.01 k/uL [facility] Nucleated RBC/100 WBC (Bld) [Ratio] 0.0 /[address] [facility] Platelet mean volume (Bld) [Entitic vol] 8.4 fL Low 9.0 - 12.[address] [facility] Platelets (Bld) [#/Vol] 351 10*3/uL 150 - 400 k/uL [facility] RBC (Bld) [#/Vol] 3.97 10*6/uL 3.90 - 5.2 0 m/uL [facility] WBC (Bld) [#/Vol] 5.31 10*3/uL 3.70 - 11. 00 k/uL [facility] Comprehensive metabolic 2000 panelon 09-30-2021 Albumin [Mass/Vol] 3.9 g/dL 3.9 - 4.9 g/dL [facility] ALP [Catalytic activity/Vol] 51 U/L 34 - 123 U/L [facility] ALT [Catalytic activity/Vol] 33 U/L 7 - 38 U/L [facility] Anion gap [Moles/Vol] 10 mmol/L 9 - 18 mmol/L [facility] AST [Catalytic activity/Vol] 18 U/L 13 - 35 U/L [facility] Bilirubin [Mass/Vol] 0.2 mg/dL 0.2 - 1 .3 mg/dL [facility] Calcium [Mass/Vol] 9.2 mg/dL 8.5 - 10. 2 mg/dL [facility] Chloride [Moles/Vol] 105 mmol/L 97 - 10 5 mmol/L [facility] CO2 [Moles/Vol] 26 mmol/L 22 - 30 mmol/L [facility] Creatinine [Mass/Vol] 0.62 mg/dL 0.58 - 0.96 mg/dL [facility] Estimated Glomerular Filtration Rate 111 mL/min/1.73m >=60 mL/min/1.73m [facility] Glucose [Mass/Vol] 89 mg/dL 74 - 99 mg/dL [facility] Potassium [Moles/Vol] 3.8 mmol/L 3.7 - 5.1 mmol/L [facility] Protein [Mass/Vol] 6.3 g/dL 6.3 - 8.0 g/dL [facility] Sodium [Moles/Vol] 141 mmol/L 136 - 144 mmol/L [facility] Urea nitrogen [Mass/Vol] 14 mg/dL 7 - 21 mg/dL [facility] CBC W Auto Differential pane l (Bld)on 09-24-2021 Abs Immature Gran <0.03 <0.10 k/uL [facility] Basophils (Bld) [#/Vol] 0.03 10*3/uL <0.11 k/uL [facility] Basophils/100 WBC (Bld) 0.4 % [facility] Differential cell count method Nom (Bld) Auto [facility] Eosinophils (Bld) [#/Vol] 10*3/uL <0.46 k/uL [facility] Eosinophils/100 WBC (Bld) 0.3 % [facility] Erythrocyte distribution width (RBC) [Ratio] 14.4 % 11.5 - 15.0 % [facility] Hematocrit (Bld) [Volume fraction] 34.4 % Low 36.0 - 46.0 % [facility] Hemoglobin (Bld) [Mass/Vol] 11.9 g/dL 11.5 - 15.5 g/dL [facility] Immature Gran % 0.3 % [facility] Lymphocytes (Bld) [#/Vol] 0.49 10*3/uL Low 1.00 - 4.00 k/uL [facility] Lymphocytes/100 WBC (Bld) 7.1 % [facility] MCH (RBC) [Entitic mass] 31.2 pg 26.0 - 34.[address] [facility] MCHC (RBC) [Mass/Vol] 34.6 g/dL 30.5 - 36.0 g/dL [facility] MCV (RBC) [Entitic vol] 90.3 fL 80.0 - 100.[address] [facility] Monocytes (Bld) [#/Vol] 0.28 10*3/uL <0.87 k/uL [facility] Monocytes/100 WBC (Bld) 4.0 % C [facility] Neutrophils (Bld) [#/Vol] 6.11 10*3/uL 1.45 - 7.50 k/uL [facility] Neutrophils/100 WBC (Bld) 87.9 % [facility] Nucleated RBC (Bld) [#/Vol] 10*3/uL <0.01 k/uL [facility] Nucleated RBC/100 WBC (Bld) [Ratio] 0.0 /[address] [facility] Platelet mean volume (Bld) [Entitic vol] 9.0 fL 9.0 - 12.[address] [facility] Platelets (Bld) [#/Vol] 364 10*3/uL 150 - 400 k/uL [facility] RBC (Bld) [#/Vol] 3.81 10*6/uL Low 3.90 - 5.2 0 m/uL [facility] WBC (Bld) [#/Vol] 6.95 10*3/uL 3.70 - 11. 00 k/uL [facility] Comprehensive metabolic 2000 panelon 09-24-2021 Albumin [Mass/Vol] 4.1 g/dL 3.9 - 4.9 g/dL [facility] ALP [Catalytic activity/Vol] 52 U/L 34 - 123 U/L [facility] ALT [Catalytic activity/Vol] 51 U/L High 7 - 38 U/L [facility] Anion gap [Moles/Vol] 12 mmol/L 9 - 18 mmol/L [facility] AST [Catalytic activity/Vol] 28 U/L 13 - 35 U/L [facility] Bilirubin [Mass/Vol] 0.2 mg/dL 0.2 - 1 .3 mg/dL [facility] Calcium [Mass/Vol] 9.5 mg/dL 8.5 - 10. 2 mg/dL [facility] Chloride [Moles/Vol] 104 mmol/L 97 - 10 5 mmol/L [facility] CO2 [Moles/Vol] 24 mmol/L 22 - 30 mmol/L [facility] Creatinine [Mass/Vol] 0.52 mg/dL Low 0.58 - 0.96 mg/dL [facility] Estimated Glomerular Filtration Rate 115 mL/min/1.73m >=60 mL/min/1.73m [facility] Glucose [Mass/Vol] 122 mg/dL High 74 - 99 mg/dL [facility] Potassium [Moles/Vol] 4.0 mmol/L 3.7 - 5.1 mmol/L [facility] Protein [Mass/Vol] 6.7 g/dL 6.3 - 8.0 g/dL [facility] Sodium [Moles/Vol] 140 mmol/L 136 - 144 mmol/L [facility] Urea nitrogen [Mass/Vol] 14 mg/dL 7 - 21 mg/dL [facility] CBC W Auto Differential pane l (Bld)on 09-17-2021 Abs Immature Gran 0.04 k/uL <0.10 k/uL [facility] Basophils (Bld) [#/Vol] 0.07 10*3/uL <0.11 k/uL [facility] Basophils/100 WBC (Bld) 1.5 % [facility] Differential cell count method Nom (Bld) Auto [facility] Eosinophils (Bld) [#/Vol] 0.09 10*3/uL <0.46 k/uL [facility] Eosinophils/100 WBC (Bld) 1.9 % [facility] Erythrocyte distribution width (RBC) [Ratio] 14.5 % 11.5 - 15.0 % [facility] Hematocrit (Bld) [Volume fraction] 33.2 % Low 36.0 - 46.0 % [facility] Hemoglobin (Bld) [Mass/Vol] 11.5 g/dL 11.5 - 15.5 g/dL [facility] Immature Gran % 0.9 % [facility] Lymphocytes (Bld) [#/Vol] 1.05 10*3/uL 1.00 - 4.00 k/uL [facility] Lymphocytes/100 WBC (Bld) 22.6 % [facility] MCH (RBC) [Entitic mass] 31.5 pg 26.0 - 34.[address] [facility] MCHC (RBC) [Mass/Vol] 34.6 g/dL 30.5 - 36.0 g/dL [facility] MCV (RBC) [Entitic vol] 91.0 fL 80.0 - 100.[address] [facility] Monocytes (Bld) [#/Vol] 0.62 10*3/uL <0.87 k/uL [facility] Monocytes/100 WBC (Bld) 13.4 % C [facility] Neutrophils (Bld) [#/Vol] 2.77 10*3/uL 1.45 - 7.50 k/uL [facility] Neutrophils/100 WBC (Bld) 59.7 % [facility] Nucleated RBC (Bld) [#/Vol] 10*3/uL <0.01 k/uL [facility] Nucleated RBC/100 WBC (Bld) [Ratio] 0.0 /[address] [facility] Platelet mean volume (Bld) [Entitic vol] 9.8 fL 9.0 - 12.[address] [facility] Platelets (Bld) [#/Vol] 300 10*3/uL 150 - 400 k/uL [facility] RBC (Bld) [#/Vol] 3.65 10*6/uL Low 3.90 - 5.2 0 m/uL [facility] WBC (Bld) [#/Vol] 4.64 10*3/uL 3.70 - 11. 00 k/uL [facility] Comprehensive metabolic 2000 panelon 09-17-2021 Albumin [Mass/Vol] 4.2 g/dL 3.9 - 4.9 g/dL [facility] ALP [Catalytic activity/Vol] 48 U/L 34 - 123 U/L [facility] ALT [Catalytic activity/Vol] 38 U/L 7 - 38 U/L [facility] Anion gap [Moles/Vol] 7 mmol/L Low 9 - 18 mmol/L [facility] AST [Catalytic activity/Vol] 25 U/L 13 - 35 U/L [facility] Bilirubin [Mass/Vol] 0.2 mg/dL 0.2 - 1 .3 mg/dL [facility] Calcium [Mass/Vol] 9.3 mg/dL 8.5 - 10. 2 mg/dL [facility] Chloride [Moles/Vol] 103 mmol/L 97 - 10 5 mmol/L [facility] CO2 [Moles/Vol] 27 mmol/L 22 - 30 mmol/L [facility] Creatinine [Mass/Vol] 0.56 mg/dL Low 0.58 - 0.96 mg/dL [facility] Estimated Glomerular Filtration Rate 113 mL/min/1.73m >=60 mL/min/1.73m [facility] Glucose [Mass/Vol] 97 mg/dL 74 - 99 mg/dL [facility] Potassium [Moles/Vol] 3.9 mmol/L 3.7 - 5.1 mmol/L [facility] Protein [Mass/Vol] 6.4 g/dL 6.3 - 8.0 g/dL [facility] Sodium [Moles/Vol] 137 mmol/L 136 - 144 mmol/L [facility] Urea nitrogen [Mass/Vol] 12 mg/dL 7 - 21 mg/dL [facility] Comprehensive metabolic 2000 panelon 09-09-2021 Albumin [Mass/Vol] 4.1 g/dL 3.9 - 4.9 g/dL [facility] ALP [Catalytic activity/Vol] 58 U/L 34 - 123 U/L [facility] ALT [Catalytic activity/Vol] 12 U/L 7 - 38 U/L [facility] Anion gap [Moles/Vol] 6 mmol/L Low 9 - 18 mmol/L [facility] AST [Catalytic activity/Vol] 15 U/L 13 - 35 U/L [facility] Bilirubin [Mass/Vol] 0.2 mg/dL 0.2 - 1 .3 mg/dL [facility] Calcium [Mass/Vol] 9.3 mg/dL 8.5 - 10. 2 mg/dL [facility] Chloride [Moles/Vol] 106 mmol/L High 97 - 10 5 mmol/L [facility] CO2 [Moles/Vol] 26 mmol/L 22 - 30 mmol/L [facility] Creatinine [Mass/Vol] 0.62 mg/dL 0.58 - 0.96 mg/dL [facility] Estimated Glomerular Filtration Rate 111 mL/min/1.73m >=60 mL/min/1.73m [facility] Glucose [Mass/Vol] 99 mg/dL 74 - 99 mg/dL [facility] Potassium [Moles/Vol] 3.8 mmol/L 3.7 - 5.1 mmol/L [facility] Protein [Mass/Vol] 6.2 g/dL Low 6.3 - 8.0 g/dL [facility] Sodium [Moles/Vol] 138 mmol/L 136 - 144 mmol/L [facility] Urea nitrogen [Mass/Vol] 17 mg/dL 7 - 21 mg/dL [facility] CNOVon 08-30-2021 [facility] TRISH GILLILAND ([id number]) 1975 F Date Time Provider Department 08/30/21 3:45 PM [facility]ANT[facility] During your visit today, we recorded the following information about you: Pulse Blood pressure Weight Height 97/minute 120/71 108.4 kg 1.715 m Garry Santos MD 08/30/2021 4:43 PM Signed Chief Complaint: Patient presents with: Recheck: Asssess residential through chemo HISTORY OF PRESENT ILLNESS: Trish Gilliland is a 46 year old female who presents for an evaluation of bilateral breast cancer and recheck residential through chemotherapy. Patient states the one on the left has decreased in size, the one on the right was non-palpable. Patient's genetic testing was negative. Kait Morris MA Patient has 2 Forrest iron carrier in the left axillary node. The first Forrest slab lifting engineer did not function and the second 1 was weak. 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, left (HCC) 06/18/2021 dx at [place] by Dr.Anthony Jacquie Mendez PAST SURGICAL HISTORY Procedure Laterality Date - BREAST BIOPSY HX Bilateral 06/16/2021 BIlateral breast cancer - LAPS SURG CHOLECYSTECTOMY W/CHOLANGIOGRAPHY 08/04/2009 Normal [facility] Social History Tobacco Use - Smoking status: Never Smoker - Smokeless tobacco: Never Used Vaping Use - Vaping Use: Never used Substance Use Topics - Alcohol use: No - Drug use: No FAMILY HISTORY Problem Relation Age of Onset - Breast Cancer Maternal Grandmother Right mast, recurrance on right (age 52), at 53 - Cervical Cancer Maternal Grandmother Dx 1963 - Uterine Cancer Maternal Grandmother - Skin Cancer Maternal Grandfather - Skin Cancer Paternal Grandfather decsd from [place] - Diabetes Son - Skin Cancer Maternal Aunt ALLERGIES Allergen Reactions - Emend [Fosaprepitan* Shortness of Breath - Penicillins Current Outpatient Medications Medication Sig - OLANZapine (ZYPREXA) 10 mg tablet TAKE 1 TABLET BY MOUTH DAILY AT BEDTIME. FOR 4 NIGHTS BEGINNING THE NIGHT OF CHEMOTHERAPY TREATMENT. - furosemide (LASIX) 20 mg tablet Take 1 tablet by mouth once daily. - omeprazole (PRILOSEC) 40 mg capsule Take 1 capsule by mouth once daily. - lidocaine-prilocaine (EMLA) 2.5-2.5 % cream Apply to port site 60 minutes prior to accessing. - promethazine (PHENERGAN) 25 mg tablet Take 1 tablet by mouth every 6 hours as needed. FOR NAUSEA - dexAMETHasone (DECADRON) 4 mg tablet Take 1 tablet by mouth twice daily with meals. on the second, third and fourth day after each chemotherapy treatment. - ibuprofen (MOTRIN) 200 mg tablet Take 400 mg by mouth every 8 hours as needed. - calcium carbonate/vitamin D3 (TOÑITO-600 WITH VITAMIN D ORAL) Take 1 tablet by mouth once daily. Current Facility-Administered Medications Medication Dose Route Frequency - perflutren lipid microspheres 1.3 mL in NaCl (PF) 0.9% 10 mL injection (DEFINITY) INTRAVENOUS DIRECTED PRN - sodium chloride 0.9 % (flush) 10 mL (BD POSIFLUSH) 10 mL INTRAVENOUS DIRECTED PRN PHYSICAL EXAM: BP 120/71 Pulse 97 Ht 5' 7.5 (1.72m) Wt 239 lb (108.4kg) LMP 06/05/2021 BMI 36.86 kg/(m2). General Appearance: Well appearing, alert, in no acute distress, well-hydrated, well nourished. Skin: Negative for jaundice or pallor. Lungs: Normal respirations Breast Exam: Left Left breast mass superior central aspect has decreased in size to 1.5 x 1.0 cm with slight tenderness. The left axillary lymph node is no longer palpable. There is associated tenderness. Data Reviewed Previous pathology reports and breast imaging ASSESSMENT/PLAN: 1. 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 She will need posttreatment MRI and plastic surgery consultation. She is planning on bilateral mastectomy. - CONSULT TO PLASTIC SURGERY 2. 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 I personally performed a history, physical exam and medical decision making. Garry Santos MD Referring Pro (more content not included)... Normal [facility] DIAGNOSTIC LTon 07-06-19 [facility] DIAGNOSTIC LT * * *Final Report* * * DATE OF EXAM: Jul 06 2021 4:12PM [facility] 0621 - [facility] DIAGNOSTIC LT / PROCEDURE REASON: Axillary adenopathy * * * * Physician Interpretation * * * * #[id number] - [facility] US LOC BREAST LT #[id number] - [facility] DIAGNOSTIC LT DIGITAL MAMMOGRAPHY AND ULTRASOUND GUIDED INFRARED ACTIVATED ELECTROMAGNETIC REFLECTOR DEVICE PLACEMENT LEFT BREAST WITH POST DIGITAL MAMMOGRAPHIC AND ULTRASOUND IMAGIN07/06/2021 HISTORY: Axillary Adenopathy/ Patient presents for needle localization of left axilla with reflector placement. Axillary Adenopathy/ Post breast reflector placement. PATIENT CONSENT: A time out was performed immediately prior to procedure start with the nursing and radiology team, correctly identifying the patient name, date of , procedure, anatomy (including marking of site and side), patient position, relevant diagnostic and radiology test results, safety precautions, and procedure-specific equipment needs. The procedure was explained to the patient including the risks, benefits and alternatives. Medications were also reviewed. The risks, including but not limited to infection and bleeding, were reviewed by the performing physician and the patient agreed to undergo the procedure. Dr. Higgins a radiology nurse and technologist were present throughout the entire procedure. Audible Time Out Time: 1508 Procedure Start Time: 1509 Procedure Stop Time: 1519 Dr. Higgins performed the entire procedure without an assistant teacher. PROCEDURE: Correlation is made to exam dated: 07/02/2021 mammogram - [facility]. An infrared activated electromagnetic reflector device placement using digital mammography and ultrasound guidance was performed for the concerning lymph node located in the left axilla. This was described on the previous mammography, ultrasound, and biopsy reports. The skin was prepped in the usual manner. Local anesthetic was administered to the access site. The localization was approached from the lateral aspect. A location device was inserted into the targeted area under digital mammography and ultrasound guidance. A sterile dressing was applied to the access site. Post placement digital mammographic and ultrasound imaging demonstrates location device traverses the targeted area. Clip placement/activation was attempted to be verified initially but a signal was not able to be elicited. Therefore, a second Quality Officer reflector was placed. However, a signal was still unable to be consistently elicited. This may be due to the depth of the lymph node. IMPRESSION: INFRARED ACTIVATED ELECTROMAGNETIC REFLECTOR DEVICE PLACEMENT Infrared activated electromagnetic reflector device placement for the lymph node in the left axilla was successful with no apparent post procedure complications. A specimen radiograph is recommended. The specimen radiograph should include the Quality Officer reflectors and the biopsy clip. Note that a consistent signal was unable to be elicited with Quality Officer Check. SUMMARY: The lack of a strong signal from the Quality Officer reflector was discussed with the patient and also communicated to Dr. Santos. Kateryna loza/ignacio:07/06/2021 16:42:59 Audio Specialist(s): RT Jesus Manuel(Opal)(M), [facility]; Le Lujan, [facility] Multiple national specialty organizations have released breast cancer screening guidelines for women at average risk for developing breast cancer - guidelines that are based on both evidence and opinion, yet differ on when to start and how often to screen for breast cancer. With representation from Breast Imaging, Internal Medicine, Women's Health, Family Medicine, and Medical/Surgical Oncology, the [facility] has carefully reviewed the data and reached the following consensus: 1) All women should engage in shared decision-making with their providers to decide when to start and how often to screen; 2) All women should have the opportunity to start screening mammography at age 40; 3) For women ages 45-55, we recommend annual screening mammograms; 4) For women ages 55 and over, we support both the transition from an annual to a biennial interval if this aligns more with patient's values and preferences, or continuation with annual screening; 5) All women should discuss with their providers when to stop screening mammograms. [employer] Manager: Ignacio Transcribe Date/Time: Jul 06 2021 3:33P Dictated by : KATERYNA HIGGINS MD This examination was interpreted and the report reviewed and electronically signed by: KATERYNA HIGGINS MD on Jul 06 2021 4:42PM EST [id number] Normal [facility] US LOC BREAST LTon 07-06 [facility] US LOC BREAST LT * * *Final Report* * * DATE OF EXAM: Jul 06 2021 3:37PM ELIOT [id number] - [facility] US LOC BREAST LT / PROCEDURE REASON: Axillary adenopathy * * * * Physician Interpretation * * * * #[id number] - [facility] US LOC BREAST LT #[id number] - [facility] DIAGNOSTIC LT DIGITAL MAMMOGRAPHY AND ULTRASOUND GUIDED INFRARED ACTIVATED ELECTROMAGNETIC REFLECTOR DEVICE PLACEMENT LEFT BREAST WITH POST DIGITAL MAMMOGRAPHIC AND ULTRASOUND IMAGIN07/06/2021 HISTORY: Axillary Adenopathy/ Patient presents for needle localization of left axilla with reflector placement. Axillary Adenopathy/ Post breast reflector placement. PATIENT CONSENT: A time out was performed immediately prior to procedure start with the nursing and radiology team, correctly identifying the patient name, date of , procedure, anatomy (including marking of site and side), patient position, relevant diagnostic and radiology test results, safety precautions, and procedure-specific equipment needs. The procedure was explained to the patient including the risks, benefits and alternatives. Medications were also reviewed. The risks, including but not limited to infection and bleeding, were reviewed by the performing physician and the patient agreed to undergo the procedure. Dr. Higgins a radiology nurse and technologist were present throughout the entire procedure. Audible Time Out Time: 1508 Procedure Start Time: 1509 Procedure Stop Time: 1519 Dr. Higgins performed the entire procedure without an assistant teacher. PROCEDURE: Correlation is made to exam dated: 07/02/2021 mammogram - [facility]. An infrared activated electromagnetic reflector device placement using digital mammography and ultrasound guidance was performed for the concerning lymph node located in the left axilla. This was described on the previous mammography, ultrasound, and biopsy reports. The skin was prepped in the usual manner. Local anesthetic was administered to the access site. The localization was approached from the lateral aspect. A location device was inserted into the targeted area under digital mammography and ultrasound guidance. A sterile dressing was applied to the access site. Post placement digital mammographic and ultrasound imaging demonstrates location device traverses the targeted area. Clip placement/activation was attempted to be verified initially but a signal was not able to be elicited. Therefore, a second Quality Officer reflector was placed. However, a signal was still unable to be consistently elicited. This may be due to the depth of the lymph node. IMPRESSION: INFRARED ACTIVATED ELECTROMAGNETIC REFLECTOR DEVICE PLACEMENT Infrared activated electromagnetic reflector device placement for the lymph node in the left axilla was successful with no apparent post procedure complications. A specimen radiograph is recommended. The specimen radiograph should include the Quality Officer reflectors and the biopsy clip. Note that a consistent signal was unable to be elicited with Quality Officer Check. SUMMARY: The lack of a strong signal from the Quality Officer reflector was discussed with the patient and also communicated to Dr. Santos. Kateryna loza/ignacio:07/06/2021 16:42:59 Audio Specialist(s): RT Jesus Manuel(Opal)(M), [facility]; Le Ho, [facility] Multiple national specialty organizations have released breast cancer screening guidelines for women at average risk for developing breast cancer - guidelines that are based on both evidence and opinion, yet differ on when to start and how often to screen for breast cancer. With representation from Breast Imaging, Internal Medicine, Women's Health, Family Medicine, and Medical/Surgical Oncology, the [facility] has carefully reviewed the data and reached the following consensus: 1) All women should engage in shared decision-making with their providers to decide when to start and how often to screen; 2) All women should have the opportunity to start screening mammography at age 40; 3) For women ages 45-55, we recommend annual screening mammograms; 4) For women ages 55 and over, we support both the transition from an annual to a biennial interval if this aligns more with patient's values and preferences, or continuation with annual screening; 5) All women should discuss with their providers when to stop screening mammograms. [employer] Manager: Ignacio Transcribe Date/Time: Jul 06 2021 3:33P Dictated by : KATERYNA HIGGINS MD This examination was interpreted and the report reviewed and electronically signed by: KATERYNA HIGGINS MD on Jul 06 2021 4:42PM EST [id number] Normal [facility] CNOVon 07-02-2021 CNOV Office Visit ([facility]) TRISH GILLILAND ([id number]) 1975 F Date Time Provider Department 07/02/21 12:30 PM JESIKA MELTON During your visit today, we recorded the following information about you: SYED Lugo 07/02/2021 12:19 PM Signed [facility] Consultation Note Genetic Counselor: Jesika Melton MS, [facility] Patient: Trish Gilliland Patient Name and confirmed at initiation of visit HIGH LEVEL SUMMARY: ? The patient's personal and family history is potentially suggestive of a hereditary breast cancer syndrome. ? The patient provided informed consent for Hereditary Breast and Ovarian Cancer Panel with reflex to the Common Hereditary Cancers Panel through [employer]. Results are expected in 2 weeks. IDENTIFICATION AND CHIEF COMPLAINT: Dr. Garry Santos requested a consultation for genetic counseling and risk assessment for Trish Gilliland, a 46 year old female, for discussion of her recent diagnosis of breast cancer and family history of breast cancer. She presents to clinic today to discuss the possibility of a genetic predisposition to cancer, and to further clarify her risks, as well as her family members' risks for cancer. HISTORY OF PRESENT ILLNESS: In June 2021, at the age of 46, Trish Gilliland was diagnosed with bilateral breast cancer. 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 (ER positive (>95%), CT positive (25%) and Her2 0) and clinical stage IA, cT1N0, grade 2 invasive ductal carcinoma of the right breast. (ER positive (>95%), CT positive (>95%) and Her2 0.) She is in the early stages of treatment planning but is tentatively planning neoadjuvant chemotherapy with Dr. Moore. 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, left (HCC) 06/18/2021 dx at [facility] by Dr.Anthony Jacquie Mendez PAST SURGICAL HISTORY Procedure Laterality Date - BREAST BIOPSY HX Bilateral 06/16/2021 BIlateral breast cancer - LAPS SURG CHOLECYSTECTOMY W/CHOLANGIOGRAPHY 08/04/2009 Normal [facility] CANCER SURVEILLANCE HISTORY: Colonoscopy: No EGD: No GI Polyps: N/A Pelvic Exam: Yes, one recently Pap Smear: Yes, one recently REPRODUCTIVE HISTORY AND PERSONAL RISK ASSESSMENT FACTORS: Weight: Last 1 Encounter Wt Readings: Date: Wt: 06/29/2021 102.5 kg (226 lb) Height: Last 1 Encounter Ht Readings: Date: Ht: 06/29/2021 170.8 cm (5' 7.25) Uterus Intact: Yes Ovaries Intact: Yes SOCIAL HISTORY: Social History Tobacco Use - Smoking status: Never Smoker - Smokeless tobacco: Never Used Substance Use Topics - Alcohol use: No - Drug use: No FAMILY HISTORY: We obtained a detailed, 4-generation family history. Significant diagnoses are listed below: FAMILY HISTORY Problem Relation Age of Onset - Breast Cancer Maternal Grandmother Right mast, recurrance on right (age 52), at 53 - Cervical Cancer Maternal Grandmother Dx 1963 - Uterine Cancer Maternal Grandmother - Skin Cancer Maternal Grandfather - Skin Cancer Paternal Grandfather decsd from [place] - Diabetes Son - Skin Cancer Maternal Aunt A copy of the patient's pedigree will be available under the scanned documents tab following today's visit. GENETIC COUNSELING RISK ASSESSMENT, DISCUSSION, AND SUGGESTED FOLLOW UP: We reviewed the natural history and genetic etiology of sporadic, familial and hereditary cancer syndromes. The patient's personal and family history is potentially suggestive of: a hereditary breast cancer syndrome The patient meets NCCN HBOC testing criteria based on her personal history of breast cancer diagnosed 46-50 y and an additional breast cancer primary at any age. We discussed that identification of a hereditary cancer syndrome may help her care providers tailor her medical management. If a mutation is detected, the National Comprehensive Cancer Network and/or expert opinion recommendations could include increased cancer surveillance and prophylactic surgery options. If a mutation is detected, the patient will be referred back to the referring provider and to any additional appropriate care providers to discuss the relevant options. Inheritance of hereditary cancer syndromes was discussed with the patient. If a mutation is not found in the patient, this will decrease the likelihood of a hereditary cancer syndrome as the explanation for the patient's recent diagnosis of breast cancer. However, it cannot completely rule out this possi (more content not included)... Normal [facility] Hannah 07-02-2021 [place] Telephone ([employer]) TRISH GILLILAND ([id number]) 1975 F Date Time Provider Department 07/02/21 GARRY SANTOS During your visit today, we recorded the following information about you: Garry Santos MD 07/02/2021 4:32 PM Signed I reviewed imaging findings with the patient. She is due to start neoadjuvant chemotherapy within the week. The clips are in good position in both breasts and in the left axillary lymph node. The left axillary lymph node clip however is very small and the radiologist recommends placement of Forrest slab lifting engineer into that node prior to neoadjuvant chemotherapy. Patient is agreement and this is ordered. Garry Santos MD July 02, 2021 4:32 PM Allergies As of Date: 07/02/2021 Noted Allergy Reaction PENICILLINS 08/01/2009 Date Reviewed: 07/02/2021 Reviewed by: Ninfa Aldana LPN - Fully Assessed Reason for Visit: Orders [681] Primary Visit Diagnosis:Axillary adenopathy [R59.0] Order(s):[facility] BREAST LT [[id number]] Order #: [id number] FUTURE Prescriptions as of 07/02/2021 - ibuprofen (MOTRIN) 200 mg tablet Take 400 mg by mouth every 8 hours as needed. - calcium carbonate/vitamin D3 (TOÑITO-600 WITH VITAMIN D ORAL) Take 1 tablet by mouth once daily. - predniSONE (DELTASONE) 10 mg tablet Take 4 tabs daily x 3 days, then 3 tabs x 3 days, 2 tabs x 3 days, then 1 tab x3 days with food. - guaiFENesin (MUCINEX) 600 mg 12 hr tablet Take 2 tablets by mouth twice daily. - benzonatate (TESSALON PERLE) 100 mg capsule Take 1 capsule by mouth three times daily as needed. - albuterol HFA (PROVENTIL HFA, VENTOLIN HFA) 90 mcg/actuation inhaler Inhale 2 Puffs as instructed every 4 hours as needed. Facility-Administered Medications as of 07/02/2021 - perflutren lipid microspheres 1.3 mL in NaCl (PF) 0.9% 10 mL injection (DEFINITY) - sodium chloride 0.9 % (flush) 10 mL (BD POSIFLUSH) Problem List As Of Date 07/02/2021 Noted Resolved Cholelithiasis NOS [K80.20] 08/01/2009 Bilateral malignant neoplasm of breast in femal*06/30/2021 Malignant neoplasm of overlapping sites of both*07/02/2021 Encounter Status:Closed by GARRY SANTOS on 07/02/21 [facility] RUBEN Cintron 2021 [facility] DEONDRE HARRELL * * *Final Report* * * DATE OF EXAM: Jul 02 2021 10:47AM AAW [id number] - RUBEN DIAG W ZARI SHARRI / PROCEDURE REASON: multiple diagnoses * * * * Physician Interpretation * * * * #[id number] - RUBEN TIMOTHYG W ZARI SHARRI BILATERAL DIGITAL DIAGNOSTIC MAMMOGRAM TOMOSYNTHESIS WITH CAD: 07/02/2021 HISTORY: Patient with newly diagnosed bilateral breast cancer with left axillary metastasis. Bilateral diagnostic mammogram performed for evaluation of biopsy clips. Planning for bilateral mastectomies. RESULT: TECHNIQUE: The study was acquired using full field digital technology and interpreted from soft copy. Digital Breast Tomosynthesis (DBT) images were obtained and used to assist in the interpretation of this examination. Current study was also evaluated with a Computer Aided Detection (CAD). Comparison is made to exams dated: 06/15/2021 mammogram, 06/16/2021 ultrasound, and 06/21/2021 breast MRI. The tissue of both breasts is heterogeneously dense. This may lower the sensitivity of mammography. There are biopsy clips in the right breast at 1 and 2 o'clock. Specifically, two biopsy clips are present at the 2:00 position 3 and 5 cm FN. A ribbon clip represents a benign biopsy. A coil clip, which is appropriately positioned within an irregular mass with associated distortion (CC slice 45 and MLO slice 57) is at site of newly diagnosed right invasive ductal carcinoma. In the left breast, a coil clip is appropriately positioned within an irregular high density mass at the 12:00 position anterior depth; this correlates with newly diagnosed left breast invasive ductal carcinoma and DCIS (CC slice 52 and MLO slice 52). In the left axilla, there is an enlarged lymph node with a biopsy clip appropriately positioned within the node. This is a biopsy proven site of axillary jesse metastatic disease. IMPRESSION: KNOWN BIOPSY PROVEN MALIGNANCY - Biopsy clips appropriately positioned within sites of newly diagnosed invasive ductal carcinoma bilaterally. - Biopsy clip appropriately positioned within a known left axillary metastatic lymph node. Note that if there is potential need to target the metastatic left axillary node for future pre-operative localization, it is recommended that a Quality Officer reflector be placed prior to initiation of olamide-adjuvant chemotherapy. SUMMARY: The patient is scheduled to see Dr. Santos today for the above results and follow up. Kateryna loza/ignacio:07/02/2021 11:45:36 Audio Specialist(s): RT Jesus Manuel(R)(M), [facility] Mammogram BI-RADS: 6 Known biopsy proven malignancy Multiple national specialty organizations have released breast cancer screening guidelines for women at average risk for developing breast cancer - guidelines that are based on both evidence and opinion, yet differ on when to start and how often to screen for breast cancer. With representation from Breast Imaging, Internal Medicine, Women's Health, Family Medicine, and Medical/Surgical Oncology, the [facility] has carefully reviewed the data and reached the following consensus: 1) All women should engage in shared decision-making with their providers to decide when to start and how often to screen; 2) All women should have the opportunity to start screening mammography at age 40; 3) For women ages 45-55, we recommend annual screening mammograms; 4) For women ages 55 and over, we support both the transition from an annual to a biennial interval if this aligns more with patient's values and preferences, or continuation with annual screening; 5) All women should discuss with their providers when to stop screening mammograms. [employer] Manager: Ignacio Transcribe Date/Time: Jul 02 2021 10:47A Dictated by : KATERYNA HIGGINS MD This examination was interpreted and the report reviewed and electronically signed by: KATERYNA HIGGINS MD on Jul 02 2021 11:45AM EST [id number] [facility] CNOVon 06-29-2021 CNOV Office Visit ([facility] R) TRISH GILLILAND ([id number]) 1975 F Date Time Provider Department 06/29/21 3:00 PM GARRY SANTOS During your visit today, we recorded the following information about you: Pulse Blood pressure Weight Height 82/minute 139/67 102.5 kg 1.708 m Garry Santos MD 06/29/2021 5:12 PM Signed Chief Complaint: Patient presents with: Breast Cancer: Bilateral AGE AT [place] 12 AGE AT FIRST 26 (2) FAMILY HISTORY OF BREAST CANCER Yes (IF YES) NUMBER OF FIRST DEGREE RELATIVES WITH BREAST CANCER 0 PREVIOUS BREAST BIOPSIES Yes (3) RACE ZAMZAM MODEL RISK 5 YEAR Dx with breast cancer HISTORY OF PRESENT ILLNESS: Trish Gilliland is a 46 year old female who presents for an evaluation of left breast palpable lump she noticed about 6 months ago, states the lump decreased in size and she was not concerned, then about 1 month ago increased and her axilla became tender and swollen. Patient had breast imaging done at [facility] which recommended biopsies of breast mass and lymph node on the left, as well as two areas on the right. Patient denies any breast symptoms on the right. Patient had all 4 biopsies done, was diagnosed with left breast cancer, mets to axilla, and right breast cancer. The second right breast biopsy was benign. Patient is scheduled to have whole body CT done at [facility] tomorrow. 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, left (HCC) 06/18/2021 dx at [facility] by Dr.Anthony Jacquie Mendez PAST SURGICAL HISTORY Procedure Laterality Date - BREAST BIOPSY HX Bilateral 06/16/2021 BIlateral breast cancer - LAP CHOLECYSTECT/CHOLANGIOG AMAIRANI 08/04/2009 Normal [facility] Social History Tobacco Use - Smoking status: Never Smoker - Smokeless tobacco: Never Used Substance Use Topics - Alcohol use: No - Drug use: No FAMILY HISTORY Problem Relation Age of Onset - Breast Cancer Maternal Grandmother Right mast, recurrance on right (age 52), at 53 - Cervical Cancer Maternal Grandmother Dx 1963 - Uterine Cancer Maternal Grandmother - Melanoma Maternal Grandfather - Melanoma Paternal Grandfather decsd from [place] - Diabetes Son - Melanoma Maternal Aunt ALLERGIES Allergen Reactions - Penicillins Current Outpatient Medications Medication Sig - ibuprofen (MOTRIN) 200 mg tablet Take 400 mg by mouth every 8 hours as needed. - iv contrast (will be provided with radiology test) CT Chest ABD/PEL-Inject, intravenously, once for 1 dose.No IV access, insert saline lock prior to the beginning of sedation, infusion, injection of imaging exam. Discontinue saline lock post exam. If Pt. has a central line or IVAD, may access for administration according to line specific nursing protocol. Once exam is complete flush line and de-access according to line specific nursing protocol in the CT contrast administration guidelines link. - enteric contrast (will be provided with radiology test) For CT CHESTABD/PEL W IVCON Routine order Administer, As Directed One Time Only, via Oral, Rectal, both Oral and Rectal, Enteric Tube, Stoma or Indwelling Catheter, Enteric Contrast as designated per enteric contrast guidelines - calcium carbonate/vitamin D3 (TOÑITO-600 WITH VITAMIN D ORAL) Take 1 tablet by mouth once daily. - predniSONE (DELTASONE) 10 mg tablet Take 4 tabs daily x 3 days, then 3 tabs x 3 days, 2 tabs x 3 days, then 1 tab x3 days with food. (Patient not taking: Reported on 06/29/2021 ) - guaiFENesin (MUCINEX) 600 mg 12 hr tablet Take 2 tablets by mouth twice daily. (Patient not taking: Reported on 09/01/2020 ) - benzonatate (TESSALON PERLE) 100 mg capsule Take 1 capsule by mouth three times daily as needed. (Patient not taking: Reported on 09/01/2020 ) - albuterol HFA (PROVENTIL HFA, VENTOLIN HFA) 90 mcg/actuation inhaler Inhale 2 Puffs as instructed every 4 hours as needed. (Patient not taking: Reported on 09/01/2020 ) No current facility-administered medications for this visit. REVIEW OF SYSTEMS GENERAL: No weight loss, malaise or fevers HEENT: No changes in hearing or vision, no nose bleeds or other nasal problems NECK: Negative for lumps, goiter, pain and significant neck swelling RESPIRATORY: Negative for cough, hemoptysis, wheezing, COPD, dyspnea or shortness of breath CARDIOVASCULAR:Negative for chest pain, leg swelling, hypertension, CHF or palpitations, currently describes achy feeling in chest, believes stress related to recent biopsies GI: No nausea, vomiting, or diarrhea MUSCULOSKELETAL: (more content not included)... Normal [facility] Vital Signs Date Time Vital Sign Value Performing Clinician Facility 02-14-2025 14:42-0400 Body temperature 98.6 [degF] Treatment Wstr Work Phone: [facility] 02-14-2025 14:42-0400 Diastolic blood pressure 73 mm[Hg] Treatment Wstr Work Phone: [facility] 02-14-2025 14:42-0400 Heart rate 74 /min Treatment Wstr Work Phone: [facility] 02-14-2025 14:42-0400 SaO2% (BldA) [Mass fraction] 99 % Treatment Wstr Work Phone: [facility] 02-14-2025 14:42-0400 Systolic blood pressure 119 mm[Hg] Treatment Wstr Work Phone: [facility] 12-18-2024 13:55-0400 Body mass index (BMI) [Ratio] 37.08 kg/m2 Ashley Berg [employer] MACHINIST.DISPLAYER Work Phone: [facility] 12-18-2024 13:55-0400 Body temperature 97.39 [degF] Ashley Berg [employer] MACHINIST.DISPLAYER Work Phone: [facility] 12-18-2024 13:55-0400 Body weight 108.2 kg Ashley Berg [employer] MACHINIST.DISPLAYER Work Phone: [facility] 12-18-2024 13:55-0400 Diastolic blood pressure 69 mm[Hg] Ashley Berg [employer] MACHINIST.DISPLAYER Work Phone: [facility] 12-18-2024 13:55-0400 Heart rate 79 /min Elmaton Berg [employer] MACHINIST.DISPLAYER Work Phone: [facility] 12-18-2024 13:55-0400 SaO2% (BldA) [Mass fraction] 99 % Ashley Berg [employer] MACHINIST.DISPLAYER Work Phone: [facility] 12-18-2024 13:55-0400 Systolic blood pressure 115 mm[Hg] Ashley Berg [employer] MACHINIST.DISPLAYER Work Phone: [facility] 08-16-2024 14:39-0500 Body temperature 97.5 [degF] Treatment Wstr Work Phone: [facility] 08-16-2024 14:39-0500 Diastolic blood pressure 81 mm[Hg] Treatment Wstr Work Phone: [facility] 08-16-2024 14:39-0500 Heart rate 84 /min Treatment Wstr Work Phone: [facility] 08-16-2024 14:39-0500 SaO2% (BldA) [Mass fraction] 99 % Treatment Wstr Work Phone: [facility] 08-16-2024 14:39-0500 Systolic blood pressure 120 mm[Hg] Treatment Wstr Work Phone: [facility] 06-20-2024 10:22-0500 Body mass index (BMI) [Ratio] 37.01 kg/m2 Ashley Berg [employer].DISPLAYER Work Phone: [facility] 06-20-2024 10:22-0500 Body temperature 97.9 [degF] Ashley Berg [employer].DISPLAYER Work Phone: [facility] 06-20-2024 10:22-0500 Body weight 108 kg Ashley Berg [employer].DISPLAYER Work Phone: [facility] 06-20-2024 10:22-0500 Diastolic blood pressure 70 mm[Hg] Ashley Berg [employer].DISPLAYER Work Phone: [facility] 06-20-2024 10:22-0500 Heart rate 89 /min Ashley Berg [employer].DISPLAYER Work Phone: [facility] 06-20-2024 10:22-0500 SaO2% (BldA) [Mass fraction] 97 % Ashley Berg [employer].DISPLAYER Work Phone: [facility] 06-20-2024 10:22-0500 Systolic blood pressure 115 mm[Hg] Ashley Berg [employer].DISPLAYER Work Phone: [facility] 02-09-2024 14:57-0400 Body temperature 98.01 [degF] Treatment Wstr Work Phone: [facility] 02-09-2024 14:57-0400 Diastolic blood pressure 65 mm[Hg] Treatment Wstr Work Phone: [facility] 02-09-2024 14:57-0400 Heart rate 78 /min Treatment Wstr Work Phone: [facility] 02-09-2024 14:57-0400 Respiratory rate 18 /min Treatment Wstr Work Phone: [facility] 02-09-2024 14:57-0400 SaO2% (BldA) [Mass fraction] 96 % Treatment Wstr Work Phone: [facility] 02-09-2024 14:57-0400 Systolic blood pressure 113 mm[Hg] Treatment Wstr Work Phone: [facility] 12-19-2023 11:17-0400 Body mass index (BMI) [Ratio] 37.36 kg/m2 Ashley Berg [employer].DISPLAYER Work Phone: [facility] 12-19-2023 11:17-0400 Body temperature 97.9 [degF] Ashley Berg [employer]ACH[employer].DISPLAYER Work Phone: [facility] 12-19-2023 11:17-0400 Body weight 109 kg Ashley Berg [employer] MACH[employer].DISPLAYER Work Phone: [facility] 12-19-2023 11:17-0400 Diastolic blood pressure 79 mm[Hg] Ashley Berg [employer].DISPLAYER Work Phone: [facility] 12-19-2023 11:17-0400 Heart rate 82 /min Ashley Berg [employer]IN[employer].DISPLAYER Work Phone: [facility] 12-19-2023 11:17-0400 SaO2% (BldA) [Mass fraction] 97 % Ashley Berg [employer] MACHINIST.DISPLAYER Work Phone: [facility] 12-19-2023 11:17-0400 Systolic blood pressure 121 mm[Hg] Ashley Berg [employer]ACH[employer].DISPLAYER Work Phone: [facility] 08-25-2023 14:16-0400 Body temperature 97.3 [degF] Treatment Wstr Work Phone: [facility] 08-25-2023 14:16-0400 Diastolic blood pressure 77 mm[Hg] Treatment Wstr Work Phone: [facility] 08-25-2023 14:16-0400 Heart rate 80 /min Treatment Wstr Work Phone: [facility] 08-25-2023 14:16-0400 SaO2% (BldA) [Mass fraction] 99 % Treatment Wstr Work Phone: [facility] 08-25-2023 14:16-0400 Systolic blood pressure 139 mm[Hg] Treatment Wstr Work Phone: [facility] 04-06-2023 21:28-0400 Body height 170.18 cm [facility] 04-06-2023 21:28-0400 Body mass index (BMI) [Ratio] 36 kg/m2 [facility] 04-06-2023 21:28-0400 Body temperature 97.6 [degF] [facility] 04-06-2023 21:28-0400 Body weight 104.32 kg [facility] 04-06-2023 21:28-0400 Diastolic blood pressure 75 mm[Hg] [facility] 04-06-2023 21:28-0400 Heart rate 94 /min [facility] 04-06-2023 21:28-0400 Respiratory rate 15 /min [facility] 04-06-2023 21:28-0400 SaO2% (BldA) [Mass fraction] 98 % [facility] 04-06-2023 21:28-0400 Systolic blood pressure 155 mm[Hg] [facility] 03-31-2023 08:23-0400 Body temperature 97.7 [degF] Marleen Sargent APRN.DISPLAYER Work Phone: [facility] 03-31-2023 08:23-0400 Body weight 108.41 kg Marleen Sargent APRN.DISPLAYER Work Phone: [facility] 03-31-2023 08:23-0400 Diastolic blood pressure 80 mm[Hg] Marleen Galindok [employer].DISPLAYER Work Phone: [facility] 03-31-2023 08:23-0400 Heart rate 83 /min Marleen Sargent [employer].DISPLAYER Work Phone: [facility] 03-31-2023 08:23-0400 Respiratory rate 16 /min Marleen Galindok [employer].DISPLAYER Work Phone: [facility] 03-31-2023 08:23-0400 SaO2% (BldA) [Mass fraction] 98 % Marleen Galindok [employer].DISPLAYER Work Phone: [facility] 03-31-2023 08:23-0400 Systolic blood pressure 128 mm[Hg] Marleen Galindok [employer].DISPLAYER Work Phone: [facility] 11-30-2022 08:20-0400 Body temperature 98.29 [degF] Ashley Berg [employer].DISPLAYER Work Phone: [facility] 11-30-2022 08:20-0400 Body weight 104.78 kg Ashley Malinenter [employer].DISPLAYER Work Phone: [facility] 11-30-2022 08:20-0400 Diastolic blood pressure 69 mm[Hg] Ashley Malinenter [employer].DISPLAYER Work Phone: [facility] 11-30-2022 08:20-0400 Heart rate 90 /min Ashley Berg [employer].DISPLAYER Work Phone: [facility] 11-30-2022 08:20-0400 SaO2% (BldA) [Mass fraction] 100 % Ashley Berg [employer]ACH[employer].DISPLAYER Work Phone: [facility] 11-30-2022 08:20-0400 Systolic blood pressure 115 mm[Hg] Elmaton Berg [employer].DISPLAYER Work Phone: [facility] 07-15-2022 14:29-0500 Body height 171 cm Treatment Wstr Work Phone: [facility] 07-15-2022 14:29-0500 Body temperature 97.59 [degF] Treatment Wstr Work Phone: [facility] 07-15-2022 14:29-0500 Body weight 112.49 kg Treatment Wstr Work Phone: [facility] 07-15-2022 14:29-0500 Diastolic blood pressure 66 mm[Hg] Treatment Wstr Work Phone: [facility] 07-15-2022 14:29-0500 Heart rate 98 /min Treatment Wstr Work Phone: [facility] 07-15-2022 14:29-0500 Respiratory rate 18 /min Treatment Wstr Work Phone: [facility] 07-15-2022 14:29-0500 SaO2% (BldA) [Mass fraction] 100 % Treatment Wstr Work Phone: [facility] 07-15-2022 14:29-0500 Systolic blood pressure 124 mm[Hg] Treatment Wstr Work Phone: [facility] 06-30-2022 09:32-0500 Body height 170.[address] Jeanine Caceres Work Phone: [facility] 06-30-2022 09:32-0500 Body mass index (BMI) [Ratio] 39.3 kg/m2 Dr. Jeanine Caceres Work Phone: [facility] 06-30-2022 09:32-0500 Body weight 113.[address] Jeanine Caceres Work Phone: [facility] 06-30-2022 09:32-0500 Diastolic blood pressure 81 mm[Hg] Dr. Jeanine Caceres Work Phone: [facility] 06-30-2022 09:32-0500 Heart rate 62 /min Dr. Jeanine Caceres Work Phone: [facility] 06-30-2022 09:32-0500 Systolic blood pressure 124 mm[Hg] Dr. Jeanine Caceres Work Phone: [facility] 06-16-2022 13:42-0500 Body mass index (BMI) [Ratio] 39.4 kg/m2 Dr. Jeanine Caceres Work Phone: [facility] 06-16-2022 13:42-0500 Body weight 114.[address] Jeanine Caceres Work Phone: [facility] 06-16-2022 13:42-0500 Diastolic blood pressure 76 mm[Hg] Dr. Jeanine Caceres Work Phone: [facility] 06-16-2022 13:42-0500 Systolic blood pressure 117 mm[Hg] Dr. Jeanine Caceres Work Phone: [facility] 05-20-2022 11:20-0500 Body temperature 97.1 [degF] Dr. Jeanine Caceres Work Phone: [facility] 05-20-2022 11:20-0500 Diastolic blood pressure 76 mm[Hg] Dr. Jeanine Caceres Work Phone: [facility] 05-20-2022 11:20-0500 Heart rate 99 /min Dr. Jeanine Caceres Work Phone: [facility] 05-20-2022 11:20-0500 Respiratory rate 16 /min Dr. Jeanine Caceres Work Phone: [facility] 05-20-2022 11:20-0500 SaO2% (BldA) [Mass fraction] 97 % Dr. Jeanine Caceres Work Phone: [facility] 05-20-2022 11:20-0500 Systolic blood pressure 120 mm[Hg] Dr. Jeanine Caceres Work Phone: [facility] 05-20-2022 06:41-0500 Body height 170.[address] Jeanine Caceres Work Phone: [facility] Work Phone: 05-20-2022 06:41-0500 Body mass index (BMI) [Ratio] 39.3 kg/m2 Dr. Jeanine Caceres Work Phone: [facility] 05-20-2022 06:41-0500 Body weight 113.[address] Jeanine Caceres Work Phone: [facility] 04-28-2022 15:10-0500 Body mass index (BMI) [Ratio] 39.6 kg/m2 Dr. Jeanine Caceres Work Phone: [facility] 04-28-2022 15:10-0500 Body weight 114.[address] Jeanine Caceres Work Phone: [facility] 04-28-2022 15:10-0500 Diastolic blood pressure 85 mm[Hg] Dr. Jeanine Caceres Work Phone: [facility] 04-28-2022 15:10-0500 Systolic blood pressure 151 mm[Hg] Dr. Jeanine Caceres Work Phone: [facility] 04-20-2022 08:45-0500 Body temperature 97.9 [degF] Radha Mckeon MD, MD Work Phone: [facility] 04-20-2022 08:45-0500 Body weight 112.04 kg Radha Mckeon MD, MD Work Phone: [facility] 04-20-2022 08:45-0500 Diastolic blood pressure 82 mm[Hg] Radha Mckeon MD, MD Work Phone: [facility] 04-20-2022 08:45-0500 Heart rate 95 /min Radha Mckeon MD, MD Work Phone: [facility] 04-20-2022 08:45-0500 Respiratory rate 15 /min Radha Mckeon MD, MD Work Phone: [facility] 04-20-2022 08:45-0500 SaO2% (BldA) [Mass fraction] 98 % Radha Mckeon MD, MD Work Phone: [facility] 04-20-2022 08:45-0500 Systolic blood pressure 125 mm[Hg] Radha Mckeon MD, MD Work Phone: [facility] 04-20-2022 08:39-0500 Body temperature 97.9 [degF] Injection Wstr Work Phone: [facility] 04-20-2022 08:39-0500 Body weight 112.04 kg Injection Wstr Work Phone: [facility] 04-20-2022 08:39-0500 Diastolic blood pressure 82 mm[Hg] Injection Wstr Work Phone: [facility] 04-20-2022 08:39-0500 Heart rate 95 /min Injection Wstr Work Phone: [facility] 04-20-2022 08:39-0500 Systolic blood pressure 125 mm[Hg] Injection Wstr Work Phone: [facility] 04-13-2022 08:42-0400 Body temperature 98.01 [degF] Radha Mckeon MD, MD Work Phone: [facility] 04-13-2022 08:42-0400 Body weight 111.36 kg Radha Mckeon MD, MD Work Phone: [facility] 04-13-2022 08:42-0400 Diastolic blood pressure 64 mm[Hg] Radha Mckeon MD, MD Work Phone: [facility] 04-13-2022 08:42-0400 Heart rate 88 /min Radha Mckeon MD, MD Work Phone: [facility] 04-13-2022 08:42-0400 Respiratory rate 15 /min Radha Mckeon MD, MD Work Phone: [facility] 04-13-2022 08:42-0400 SaO2% (BldA) [Mass fraction] 98 % Radha Mckeon MD, MD Work Phone: [facility] 04-13-2022 08:42-0400 Systolic blood pressure 123 mm[Hg] Radha Mckeon MD, MD Work Phone: [facility] 04-08-2022 15:26-0400 Body mass index (BMI) [Ratio] 38 kg/m2 Dr. Jeanine Caceres Work Phone: [facility] 04-08-2022 15:26-0400 Body weight 110.[address] Jeanine Caceres Work Phone: [facility] 04-08-2022 15:26-0400 Diastolic blood pressure 82 mm[Hg] Dr. Jeanine Caceres Work Phone: [facility] 04-08-2022 15:26-0400 Systolic blood pressure 124 mm[Hg] Dr. Jeanine Caceres Work Phone: [facility] 04-06-2022 08:47-0400 Body temperature 98.49 [degF] Radha Mckeon MD, MD Work Phone: [facility] 04-06-2022 08:47-0400 Diastolic blood pressure 76 mm[Hg] Radha Mckeon MD, MD Work Phone: [facility] 04-06-2022 08:47-0400 Heart rate 91 /min Radha Mckeon MD, MD Work Phone: [facility] 04-06-2022 08:47-0400 Respiratory rate 20 /min Radha Mckeon MD, MD Work Phone: [facility] 04-06-2022 08:47-0400 SaO2% (BldA) [Mass fraction] 97 % Radha Mckeon MD, MD Work Phone: [facility] 04-06-2022 08:47-0400 Systolic blood pressure 157 mm[Hg] Radha Mckeon MD, MD Work Phone: [facility] 03-30-2022 08:41-0400 Body temperature 97.9 [degF] Radha Mckeon MD, MD Work Phone: [facility] 03-30-2022 08:41-0400 Body weight 110.86 kg Radha Mckeon MD, MD Work Phone: [facility] 03-30-2022 08:41-0400 Diastolic blood pressure 70 mm[Hg] Radha Mckeon MD, MD Work Phone: [facility] 03-30-2022 08:41-0400 Heart rate 89 /min Radha Mckeon MD, MD Work Phone: [facility] 03-30-2022 08:41-0400 Respiratory rate 16 /min Radha Mckeon MD, MD Work Phone: [facility] 03-30-2022 08:41-0400 SaO2% (BldA) [Mass fraction] 98 % Radha Mckeon MD, MD Work Phone: [facility] 03-30-2022 08:41-0400 Systolic blood pressure 130 mm[Hg] Radha Mckeon MD, MD Work Phone: [facility] 03-23-2022 13:47-0400 Body temperature 97.3 [degF] Stefan Friedman MD Work Phone: [facility] 03-23-2022 13:47-0400 Body weight 110.9 kg Stefan Friedman MD Work Phone: [facility] 03-23-2022 13:47-0400 Diastolic blood pressure 69 mm[Hg] Stefan Friedman MD Work Phone: [facility] 03-23-2022 13:47-0400 Heart rate 86 /min Stefan Friedman MD Work Phone: [facility] 03-23-2022 13:47-0400 SaO2% (BldA) [Mass fraction] 97 % Stefan Friedman MD Work Phone: [facility] 03-23-2022 13:47-0400 Systolic blood pressure 108 mm[Hg] Stefan Friedman MD Work Phone: [facility] 03-23-2022 08:42-0400 Body temperature 97.3 [degF] Radha Mckeon MD, MD Work Phone: [facility] 03-23-2022 08:42-0400 Diastolic blood pressure 69 mm[Hg] Radha Mckeon MD, MD Work Phone: [facility] 03-23-2022 08:42-0400 Heart rate 86 /min Radha Mckeon MD, MD Work Phone: [facility] 03-23-2022 08:42-0400 Respiratory rate 20 /min Radha Mckeon MD, MD Work Phone: [facility] 03-23-2022 08:42-0400 SaO2% (BldA) [Mass fraction] 97 % Radha Mckeon MD, MD Work Phone: [facility] 03-23-2022 08:42-0400 Systolic blood pressure 108 mm[Hg] Radha Mckeon MD, MD Work Phone: [facility] 03-16-2022 08:47-0400 Body temperature 98.29 [degF] Radha Mckeon MD, MD Work Phone: [facility] 03-16-2022 08:47-0400 Diastolic blood pressure 65 mm[Hg] Radha Mckeon MD, MD Work Phone: [facility] 03-16-2022 08:47-0400 Heart rate 80 /min Radha Mckeon MD, MD Work Phone: [facility] 03-16-2022 08:47-0400 SaO2% (BldA) [Mass fraction] 99 % Radha Mckeon MD, MD Work Phone: [facility] 03-16-2022 08:47-0400 Systolic blood pressure 127 mm[Hg] Radha Mckeon MD, MD Work Phone: [facility] 02-18-2022 11:47-0400 Body height 170.2 cm Garry Santos MD Work Phone: [facility] 02-18-2022 11:47-0400 Body weight 108.41 kg Garry Santos MD Work Phone: [facility] 02-18-2022 11:47-0400 Diastolic blood pressure 66 mm[Hg] Garry Santos MD Work Phone: [facility] 02-18-2022 11:47-0400 Heart rate 73 /min Garry Santos MD Work Phone: [facility] 02-18-2022 11:47-0400 Systolic blood pressure 130 mm[Hg] Garry Santos MD Work Phone: [facility] 02-17-2022 15:24-0400 Body temperature 98.1 [degF] Radha Mckeon MD, MD Work Phone: [facility] 02-17-2022 15:24-0400 Diastolic blood pressure 59 mm[Hg] Radha Mckeon MD, MD Work Phone: [facility] 02-17-2022 15:24-0400 Heart rate 73 /min Radha Mckeon MD, MD Work Phone: [facility] 02-17-2022 15:24-0400 Respiratory rate 20 /min Radha Mckeon MD, MD Work Phone: [facility] 02-17-2022 15:24-0400 SaO2% (BldA) [Mass fraction] 99 % Radha Mckeon MD, MD Work Phone: [facility] 02-17-2022 15:24-0400 Systolic blood pressure 114 mm[Hg] Radha Mckeon MD, MD Work Phone: [facility] 02-16-2022 15:41-0400 Diastolic blood pressure 74 mm[Hg] [facility] Work Phone: 02-16-2022 15:41-0400 Heart rate 95 /min [facility] Work Phone: 02-16-2022 15:41-0400 Respiratory rate 16 /min [facility] Work Phone: 02-16-2022 15:41-0400 SaO2% (BldA) [Mass fraction] 99 % [facility] Work Phone: 02-16-2022 15:41-0400 Systolic blood pressure 109 mm[Hg] [facility] Work Phone: 02-16-2022 13:33-0400 Body height 170.18 cm [facility] Work Phone: 02-16-2022 13:33-0400 Body mass index (BMI) [Ratio] 37.3 kg/m2 [facility] Work Phone: 02-16-2022 13:33-0400 Body temperature 97.4 [degF] [facility] Work Phone: 02-16-2022 13:33-0400 Body weight 108 kg [facility] Work Phone: 02-16-2022 08:53-0400 Body temperature 98.2 [degF] Rachid Masci DO Work Phone: [facility] 02-16-2022 08:53-0400 Body weight 108.64 kg Rachid Masci DO Work Phone: [facility] 02-16-2022 08:53-0400 Diastolic blood pressure 65 mm[Hg] Rachid Masci DO Work Phone: [facility] 02-16-2022 08:53-0400 Heart rate 76 /min Rachid Masci DO Work Phone: [facility] 02-16-2022 08:53-0400 Systolic blood pressure 110 mm[Hg] Rachid Masci DO Work Phone: [facility] 02-04-2022 10:24-0400 Body height 170.2 cm Garry Santos MD Work Phone: [facility] 02-04-2022 10:24-0400 Body weight 107.96 kg Garry Santos MD Work Phone: [facility] 02-04-2022 10:24-0400 Diastolic blood pressure 45 mm[Hg] Garry Santos MD Work Phone: [facility] 02-04-2022 10:24-0400 Heart rate 85 /min Garry Santos MD Work Phone: [facility] 02-04-2022 10:24-0400 Systolic blood pressure 100 mm[Hg] Garry Santos MD Work Phone: [facility] 01-19-2022 13:40-0400 Body height 170.[address] [facility] 01-19-2022 13:40-0400 Body temperature 97.5 [degF] Pst 1 [facility] 01-19-2022 13:40-0400 Body weight 113.[address] [facility] 01-19-2022 13:40-0400 Diastolic blood pressure 73 mm[Hg] Pst [address] [facility] 01-19-2022 13:40-0400 Heart rate 73 /min Pst [address] [facility] 01-19-2022 13:40-0400 Respiratory rate 18 /min Pst 1 [facility] 01-19-2022 13:40-0400 SaO2% (BldA) [Mass fraction] 99 % Pst [address] [facility] 01-19-2022 13:40-0400 Systolic blood pressure 117 mm[Hg] Pst [address] [facility] 12-09-2021 15:12-0400 Body height 171.5 cm Garry Santos MD Work Phone: [facility] 12-09-2021 15:12-0400 Body weight 111.58 kg Garry Santos MD Work Phone: [facility] 12-09-2021 15:12-0400 Diastolic blood pressure 63 mm[Hg] Garry Santos MD Work Phone: [facility] 12-09-2021 15:12-0400 Heart rate 69 /min Garry Santos MD Work Phone: [facility] 12-09-2021 15:12-0400 Systolic blood pressure 141 mm[Hg] Garry Santos MD Work Phone: [facility] 12-07-2021 11:05-0400 Body temperature 98.4 [degF] Rachid Masci DO Work Phone: [facility] 12-07-2021 11:05-0400 Body weight 112.27 kg Rachid Masci DO Work Phone: [facility] 12-07-2021 11:05-0400 Diastolic blood pressure 72 mm[Hg] Rachid Masci DO Work Phone: [facility] 12-07-2021 11:05-0400 Heart rate 82 /min Rachid Masci DO Work Phone: [facility] 12-07-2021 11:05-0400 Systolic blood pressure 128 mm[Hg] Rachid Masci DO Work Phone: [facility] 11-19-2021 08:22-0400 Body temperature 97.5 [degF] Treatment Wstr Work Phone: [facility] 11-19-2021 08:22-0400 Body weight 111.58 kg Treatment Wstr Work Phone: [facility] 11-19-2021 08:22-0400 Diastolic blood pressure 65 mm[Hg] Treatment Wstr Work Phone: [facility] 11-19-2021 08:22-0400 Heart rate 79 /min Treatment Wstr Work Phone: [facility] 11-19-2021 08:22-0400 Respiratory rate 18 /min Treatment Wstr Work Phone: [facility] 11-19-2021 08:22-0400 SaO2% (BldA) [Mass fraction] 99 % Treatment Wstr Work Phone: [facility] 11-19-2021 08:22-0400 Systolic blood pressure 119 mm[Hg] Treatment Wstr Work Phone: [facility] 11-11-2021 08:06-0400 Body temperature 98.2 [degF] Rachid Masci DO Work Phone: [facility] 11-11-2021 08:06-0400 Body weight 111.81 kg Rachid Masci DO Work Phone: [facility] 11-11-2021 08:06-0400 Diastolic blood pressure 67 mm[Hg] Rachid Masci DO Work Phone: [facility] 11-11-2021 08:06-0400 Heart rate 91 /min Rachid Masci DO Work Phone: [facility] 11-11-2021 08:06-0400 SaO2% (BldA) [Mass fraction] 98 % Rachid Masci DO Work Phone: [facility] 11-11-2021 08:06-0400 Systolic blood pressure 127 mm[Hg] Rachid Masci DO Work Phone: [facility] 11-05-2021 10:00-0400 Body temperature 98.01 [degF] [facility]str [facility] [facility] 11-05-2021 10:00-0400 Diastolic blood pressure 65 mm[Hg] Treatment Wstr Work Phone: [facility] 11-05-2021 10:00-0400 Heart rate 73 /min Treatment Wstr Work Phone: [facility] 11-05-2021 10:00-0400 Respiratory rate 18 /min Treatment Wstr Work Phone: [facility] 11-05-2021 10:00-0400 SaO2% (BldA) [Mass fraction] 98 % Treatment Wstr Work Phone: [facility] 11-05-2021 10:00-0400 Systolic blood pressure 125 mm[Hg] Treatment Wstr Work Phone: [facility] 10-29-2021 08:04-0400 Body temperature 96.1 [degF] Treatment Wstr Work Phone: [facility] 10-29-2021 08:04-0400 Body weight 110.68 kg Treatment Wstr Work Phone: [facility] 10-29-2021 08:04-0400 Diastolic blood pressure 60 mm[Hg] Treatment Wstr Work Phone: [facility] 10-29-2021 08:04-0400 Heart rate 93 /min Treatment Wstr Work Phone: [facility] 10-29-2021 08:04-0400 Systolic blood pressure 127 mm[Hg] Treatment Wstr Work Phone: [facility] 10-22-2021 10:38-0400 Body temperature 97.9 [degF] Treatment Wstr Work Phone: [facility] 10-22-2021 10:38-0400 Diastolic blood pressure 78 mm[Hg] Treatment Wstr Work Phone: [facility] 10-22-2021 10:38-0400 Heart rate 100 /min Treatment Wstr Work Phone: [facility] 10-22-2021 10:38-0400 Systolic blood pressure 132 mm[Hg] Treatment Wstr Work Phone: [facility] 10-21-2021 08:37-0400 Body temperature 98.4 [degF] Rachid Masci DO Work Phone: [facility] 10-21-2021 08:37-0400 Body weight 112.04 kg Rachid Masci DO Work Phone: [facility] 10-21-2021 08:37-0400 Diastolic blood pressure 80 mm[Hg] Rachid Masci DO Work Phone: [facility] 10-21-2021 08:37-0400 Heart rate 90 /min Rachid Masci DO Work Phone: [facility] 10-21-2021 08:37-0400 SaO2% (BldA) [Mass fraction] 99 % Rachid Masci DO Work Phone: [facility] 10-21-2021 08:37-0400 Systolic blood pressure 140 mm[Hg] Rachid Masci DO Work Phone: [facility] 10-01-2021 07:54-0400 Body temperature 96.69 [degF] Treatment Wstr Work Phone: [facility] 10-01-2021 07:54-0400 Diastolic blood pressure 69 mm[Hg] Treatment Wstr Work Phone: [facility] 10-01-2021 07:54-0400 Heart rate 76 /min Treatment Wstr Work Phone: [facility] 10-01-2021 07:54-0400 Systolic blood pressure 136 mm[Hg] Treatment Wstr Work Phone: [facility] 09-30-2021 08:42-0400 Body temperature 98.4 [degF] Rachid Masci DO Work Phone: [facility] 09-30-2021 08:42-0400 Body weight 110.22 kg Rachid Masci DO Work Phone: [facility] 09-30-2021 08:42-0400 Diastolic blood pressure 71 mm[Hg] Rachid Gravesi DO Work Phone: [facility] 09-30-2021 08:42-0400 Heart rate 77 /min Rachid Moore DO Work Phone: [facility] 09-30-2021 08:42-0400 SaO2% (BldA) [Mass fraction] 98 % Rachid Moore DO Work Phone: [facility] 09-30-2021 08:42-0400 Systolic blood pressure 117 mm[Hg] Rachid Moore DO Work Phone: [facility] 09-30-2021 08:31-0400 Body weight 110.22 kg Lab/Port Wstr Work Phone: [facility] 09-24-2021 11:39-0400 Diastolic blood pressure 72 mm[Hg] Treatment Wstr Work Phone: [facility] 09-24-2021 11:39-0400 Heart rate 78 /min Treatment Wstr Work Phone: [facility] 09-24-2021 11:39-0400 Systolic blood pressure 114 mm[Hg] Treatment Wstr Work Phone: [facility] 09-24-2021 09:36-0400 Body temperature 98.29 [degF] Treatment Wstr Work Phone: [facility] 09-24-2021 09:36-0400 SaO2% (BldA) [Mass fraction] 99 % Treatment Wstr Work Phone: [facility] 09-17-2021 11:45-0400 Diastolic blood pressure 73 mm[Hg] Treatment Wstr Work Phone: [facility] 09-17-2021 11:45-0400 Heart rate 90 /min Treatment Wstr Work Phone: [facility] 09-17-2021 11:45-0400 SaO2% (BldA) [Mass fraction] 99 % Treatment Wstr Work Phone: [facility] 09-17-2021 11:45-0400 Systolic blood pressure 121 mm[Hg] Treatment Wstr Work Phone: [facility] 09-17-2021 10:21-0400 Body temperature 98.01 [degF] Treatment Wstr Work Phone: [facility] 09-17-2021 10:21-0400 Body weight 109.77 kg Treatment Wstr Work Phone: [facility] 09-10-2021 13:08-0400 Diastolic blood pressure 74 mm[Hg] Treatment Wstr Work Phone: [facility] 09-10-2021 13:08-0400 Heart rate 70 /min Treatment Wstr Work Phone: [facility] 09-10-2021 13:08-0400 Systolic blood pressure 112 mm[Hg] Treatment Wstr Work Phone: [facility] 09-10-2021 12:11-0400 SaO2% (BldA) [Mass fraction] 99 % Treatment Wstr Work Phone: [facility] 09-10-2021 09:53-0400 Body temperature 97.39 [degF] Treatment Wstr Work Phone: [facility] 09-09-2021 07:54-0400 Body temperature 97.9 [degF] Ashley Berg APRN.DISPLAYER Work Phone: [facility] 09-09-2021 07:54-0400 Body weight 108.18 kg Ashley Berg APRN.DISPLAYER Work Phone: [facility] Encounters Encounter Date Encounter Type Care Provider Facility Start: 02-14-2025 End: 02-14-2025 ambulatory Treatment Rm 14 [facility] Wstr Work Phone: Hematology/Oncology Comment on above: Bilateral malignant neoplasm of breast in female, unspecified estrogen receptor status, unspecified site of breast (HCC) (Primary Dx); Encounter for screening for osteoporosis Start: 12-18-2024 End: 12-18-2024 Follow-up encounter Ashley Berg APRN.DISPLAYER Work Phone: Hematology/Oncology Comment on above: Encounter for follow -up surveillance of breast cancer (Primary Dx) Start: 12-18-2024 End: 12-18-2024 Patient encounter procedure Ashley Berg APRN.DISPLAYER Work Phone: Hematology/Oncology Start: 12-18-2024 End: 12-18-2024 ambulatory ASHLEY BERG Facility:[facility] Start: 11-18-2024 ambulatory ASHLEY BERG Facilit y:[facility] Start: 11-18-2024 End: 11-18-2024 Subsequent hospital visit by physician Bone Density [facility] Wstr Work Phone: Radiology Comment on above: Encounter for follow -up surveillance of breast cancer [Z08, Z85.3] Start: 08-16-2024 End: 08-16-2024 ambulatory Treatment Rm 15 [facility] Wstr Work Phone: Hematology/Oncology Comment on above: Bilateral malignant neoplasm of breast in female, unspecified estrogen receptor status, unspecified site of breast (HCC) (Primary Dx); Encounter for screening for osteoporosis Start: 07-24-2024 End: 07-24-2024 ambulatory [facility] Facility:[facility] Start: 07-13-2024 End: 07-13-2024 ambulatory [facility] Facility:[facility] Start: 06-20-2024 End: 06-20-2024 ambulatory ASHLEY BERG Facility:[facility] Start: 06-20-2024 End: 06-20-2024 Follow-up encounter Ashley Berg APRN.DISPLAYER Work Phone: Hematology/Oncology Comment on above: Encounter for follow -up surveillance of breast cancer (Primary Dx); Menopause; Aromatase inhibitor use Start: 06-20-2024 End: 06-20-2024 Patient encounter procedure Ashley Berg APRNAlessandraDISPLAYER Work Phone: Hematology/Oncology Start: 05-29-2024 End: 05-29-2024 ambulatory Ar PEOPLES Facility:[facility] Start: 05-15-2024 End: 05-15-2024 ambulatory Ar PEOPLES Facility:[facility] Start: 04-29-2024 End: 04-29-2024 ambulatory Ar PEOPLES Facility:[facility] Start: 04-17-2024 End: 04-17-2024 ambulatory Ar PEOPLES Facility:[facility] Start: 04-17-2024 End: 04-17-2024 Emergency department patient visit Barry Guillen Facility:[facility] Start: 02-09-2024 End: 02-09-2024 ambulatory Treatment Wstr Work Phone: Hematology/Oncology Comment on above: 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, estrogen receptor positive (HCC) (Primary Dx); Bilateral malignant neoplasm of breast in female, unspecified estrogen receptor status, unspecified site of breast (HCC); Encounter for screening for osteoporosis Start: 02-09-2024 End: 02-09-2024 Patient encounter procedure Treatment Rm 15 [facility] Wstr Work Phone: Hematology/Oncology Start: 01-05-2024 End: 01-05-2024 Emergency department patient visit Jeanine Caceres Facility:[facility] Start: 12-19-2023 End: 12-19-2023 ambulatory Ashley Berg [employer] PRINTING MACHINIST.DISPLAYER Work Phone: Hematology/Oncology Comment on above: 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, estrogen receptor positive (HCC) (Primary Dx) Start: 12-19-2023 End: 12-19-2023 Patient encounter procedure Ashley Berg [employer] MACHINIST.DISPLAYER Work Phone: Hematology/Oncology Start: 08-25-2023 End: 08-25-2023 ambulatory Treatment Rm 12 [facility] Wstr Work Phone: Hematology/Oncology Comment on above: 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, estrogen receptor positive (HCC) (Primary Dx); Encounter for screening for osteoporosis; Bilateral malignant neoplasm of breast in female, unspecified estrogen receptor status, unspecified site of breast (HCC) Start: 08-01-2023 ambulatory Ashley bashir [employer] MACHINIST.DISPLAYER Work Phone: Hematology/Oncology Comment on above: Trish Keets/ Infusi on Start: 04-06-2023 End: 04-06-2023 Emergency department patient visit [facility] Work Phone: Start: 04-01-2023 ambulatory Ashley Carpente r [employer] MACHINIST.DISPLAYER Work Phone: Hematology/Oncology Comment on above: Trish Keets/ Monday appt Start: 03-31-2023 End: 03-31-2023 Patient encounter procedure Marleen Sargent [employer] MACHINIST.DISPLAYER Work Phone: [facility] Comment on above: Sore throat (Primary Dx); URI with cough and congestion Start: 01-18-2023 Telephone encounter Theodora Bairesmahamedroly DO Work Phone: Orthopaedics Comment on above: Chart prep Start: 12-29-2022 Orders Only Rachid Leung O Work Phone: Hematology/Oncology Comment on above: 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, estrogen receptor positive (HCC) (Primary Dx) Start: 12-23-2022 ambulatory Ashley Carpente r [employer] MACHINIST.DISPLAYER Work Phone: Hematology/Oncology Comment on above: Trish Keets/ arm an d hand swelling Start: 11-30-2022 End: 11-30-2022 ambulatory Elmaton Berg [employer] MACHINIST.DISPLAYER Work Phone: Hematology/Oncology Comment on above: 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, estrogen receptor positive (HCC) (Primary Dx); Left arm pain; History of mastectomy, bilateral Start: 11-30-2022 End: 11-30-2022 Patient encounter procedure Ashley Berg [employer] MACHINIST.DISPLAYER Work Phone: [facility] Start: 11-19-2022 ambulatory Rachid Leung O Work Phone: Hematology/Oncology Comment on above: Trish Keets/ Hair L oss Start: 09-26-2022 ambulatory Rachid Moore D O Work Phone: Hematology/Oncology Comment on above: Trish Keets/ Exemes tane Start: 09-15-2022 ambulatory Ashley Carpente r [employer] MACHINIST.DISPLAYER Work Phone: Hematology/Oncology Comment on above: Trish Gilliland Start: 09-05-2022 Nursing evaluation o f patient and report Liat Vidales RN Hematology/Oncology Comment on above: Examination of parti cipant in clinical trial (Primary Dx) Start: 09-05-2022 Patient encounter procedure Liat Vidales RN Hematology/Oncology Start: 08-30-2022 Telephone encounter Corrine Blackmon RN He matology/Oncology Comment on above: Make Up Editor - O ther (Appointment ) Appointment Start: 08-24-2022 ambulatory Rachid Bowen Work Phone: Hematology/Oncology Comment on above: Med Question for Melissa Gilliland Start: 08-24-2022 Telephone encounter Liat Vidales RN Hematology/Oncology Comment on above: Patient Question Start: 07-15-2022 End: 07-15-2022 ambulatory Treatment Rm 11 [facility] W[facility] Work Phone: Hematology/Oncology Comment on above: Encounter for screen ing for osteoporosis (Primary Dx); Bilateral malignant neoplasm of breast in female, unspecified estrogen receptor status, unspecified site of breast (HCC) Start: 07-15-2022 Nursing evaluation o f patient and report Liat Vidales RN Hematology/Oncology Comment on above: Examination of parti cipant in clinical trial (Primary Dx) Start: 07-15-2022 Patient encounter procedure Liat Vidales RN Hematology/Oncology Start: 06-30-2022 End: 06-30-[address] Jeanine Caceres Work Phone: [facility] Work Phone: Start: 06-30-2022 End: 06-30-[address] Jeanine Caceres Work Phone: [facility]Laboratory, [facility] Start: 06-30-2022 End: 06-30-[address] Jeanine Caceres Work Phone: [facility] Start: 06-27-2022 Telephone encounter Rachid kurtz DO Work Phone: Hematology/Oncology Comment on above: Results Start: 2022 ambulatory Rachid Bowen Work Phone: Hematology/Oncology Comment on above: Trish Keets/ weight loss question Start: 06-16-2022 End: 06-16-[address] Jeanine Caceres Work Phone: [facility] Start: 05-23-2022 End: 05-23-2022 Follow-up encounter Radha Mckeon MD Work Phone: Radiation Oncology Comment on above: Radiotherapy follow- up (Primary Dx); Bilateral malignant neoplasm of breast in female, estrogen receptor positive, unspecified site of breast (HCC) Start: 05-23-2022 End: 05-23-2022 Telemedicine consultation with patient Radha Mckeon MD, MD Work Phone: [facility] Start: 05-20-2022 Non-patient / Non-visit Dr. Aquilino Caceres Work Phone: [facility] Start: 05-20-2022 End: 05-20-2022 Admission to same day surgery center Dr[facility] Jeanine Caceres [facility] Start: 05-20-2022 End: 05-20-[address] Jeanine Caceres Work Phone: [facility] Work Phone: Start: 05-19-2022 Telephone encounter Rachid kurtz DO Work Phone: Hematology/Oncology Comment on above: Medication Request Start: 05-04-2022 End: 05-04-2022 Subsequent hospital visit by physician Bone Density [facility] Wstr Work Phone: Radiology Comment on above: Encounter for screen ing for osteoporosis [Z13.820] Start: 04-28-2022 End: 04-28-[address] Jeanine Caceres Work Phone: [facility] Start: 04-25-2022 ambulatory Radha Mckeon MD Work Phone: Radiation Oncology Comment on above: Patient Education (C ompleted radiation) Start: 04-25-2022 Patient encounter procedure Radha Mckeon MD, MD Work Phone: [facility] Start: 04-25-2022 Radiation Oncology Note Conrad Mckeon MD Work Phone: Radiation Oncology Comment on above: Completion Note Start: 04-20-2022 End: 04-20-2022 ambulatory Injection [facility] W[facility] Work Phone: Hematology/Oncology Comment on above: 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, estrogen receptor positive (HCC) (Primary Dx) Start: 04-20-2022 End: 04-20-2022 Patient encounter procedure Radha Mckeon MD Work Phone: Radiation Oncology Comment on above: Bilateral malignant neoplasm of breast in female, estrogen receptor positive, unspecified site of breast (HCC) (Primary Dx) Start: 04-19-2022 Telephone encounter Rachid kurtz DO Work Phone: Hematology/Oncology Comment on above: AVS Start: 04-18-2022 Orders Only Rachid Bowen Work Phone: Hematology/Oncology Comment on above: 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, estrogen receptor positive (HCC) (Primary Dx) Start: 04-14-2022 Telephone encounter Rachid kurtz DO Work Phone: Hematology/Oncology Comment on above: Question Start: 04-13-2022 End: 04-13-2022 Patient encounter procedure Radha Mckeon MD Work Phone: Radiation Oncology Comment on above: Bilateral malignant neoplasm of breast in female, estrogen receptor positive, unspecified site of breast (HCC) (Primary Dx) Start: 04-09-2022 Telephone encounter Rachid kurtz DO Work Phone: Hematology/Oncology Comment on above: Future Appointment Start: 04-08-2022 End: 04-08-2022 Patient encounter procedure Radha Mckeon MD, MD Work Phone: [facility] Start: 04-08-2022 Radiation Oncology Note Conrad Mckeon MD Work Phone: Radiation Oncology Comment on above: Simulation Note Start: 04-06-2022 End: 04-06-2022 Patient encounter procedure Radha Mckeon MD Work Phone: Radiation Oncology Comment on above: Bilateral malignant neoplasm of breast in female, estrogen receptor positive, unspecified site of breast (HCC) (Primary Dx) Start: 03-30-2022 End: 03-30-2022 Patient encounter procedure Radha Mckeon MD Work Phone: Radiation Oncology Comment on above: Bilateral malignant neoplasm of breast in female, estrogen receptor positive, unspecified site of breast (HCC) (Primary Dx) Start: 03-23-2022 End: 03-23-2022 ambulatory Injection [facility] Work Phone: Hematology/Oncology Comment on above: 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, estrogen receptor positive (HCC) (Primary Dx) Encounter for screen ing for osteoporosis (Primary Dx); Asymptomatic postmenopausal status; 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, estrogen receptor positive (HCC) Start: 03-23-2022 Telephone encounter Stefan Friedman MD Work Phone: Hematology/Oncology Comment on above: Orders Start: 03-23-2022 End: 03-23-2022 Patient encounter procedure Radha Mckeon MD Work Phone: Radiation Oncology Comment on above: Bilateral malignant neoplasm of breast in female, estrogen receptor positive, unspecified site of breast (HCC) (Primary Dx) Start: 03-16-2022 End: 03-16-2022 Patient encounter procedure Radha Mckeon MD Work Phone: Radiation Oncology Comment on above: Bilateral malignant neoplasm of breast in female, estrogen receptor positive, unspecified site of breast (HCC) (Primary Dx) Start: 03-15-2022 Telephone encounter Rachid kurtz DO Work Phone: Hematology/Oncology Comment on above: Patient Question Start: 03-09-2022 Telephone encounter [facility] Hematology/Oncology Comment on above: Disability Paperwork Start: 03-02-2022 Telephone encounter Rachid kurtz DO Work Phone: Hematology/Oncology Comment on above: Patient Question Social Work Services Start: 03-01-2022 ambulatory Radha Mckeon MD Work Phone: Radiation Oncology Comment on above: Patient Education Start: 03-01-2022 Patient encounter procedure Radha Mckeon MD, MD Work Phone: [facility] Start: 03-01-2022 Radiation Oncology Note Conrad Mckeon MD Work Phone: Radiation Oncology Comment on above: Simulation Note Treatment Planning Start: 02-28-2022 Orders Only Radha Mckeon MD Work Phone: Radiation Oncology Comment on above: Bilateral malignant neoplasm of breast in female, estrogen receptor positive, unspecified site of breast (HCC) (Primary Dx) Start: 02-23-2022 End: 02-23-2022 ambulatory GARRY SANTOS Facility:[facility] Start: 02-23-2022 End: 02-23-2022 ambulatory Shania Trinh PT Work Phone: [facility] Comment on above: History of bilateral breast cancer (Primary Dx) Start: 02-18-2022 End: 02-18-2022 ambulatory GARRY SANTOS Facility:[facility] Start: 02-18-2022 End: 02-18-2022 Patient encounter procedure Garry Santos MD Work Phone: [facility] Comment on above: Aftercare following surgery (Primary Dx) Start: 02-17-2022 End: 02-17-2022 Patient encounter procedure Radha Mckeon MD Work Phone: Radiation Oncology Comment on above: Bilateral malignant neoplasm of breast in female, estrogen receptor positive, unspecified site of breast (HCC) (Primary Dx) Start: 02-17-2022 Telephone encounter Danielle maddox RN Work Phone: Hematology/Oncology Comment on above: Make Up Editor - E D Follow Up Start: 02-16-2022 Nursing evaluation o f patient and report Liat Vidales RN Hematology/Oncology Comment on above: Examination of parti cipant in clinical trial (Primary Dx) Start: 02-16-2022 End: 02-16-2022 Patient encounter procedure Rachid Moore DO Work Phone: [facility] Start: 02-16-2022 Telephone encounter Rachid kurtz DO Work Phone: Hematology/Oncology Comment on above: Critical Results (D Dimer) Start: 02-16-2022 End: 02-16-2022 Emergency department patient visit [facility]Emergency Department Start: 02-16-2022 End: 02-16-2022 ambulatory [facility] Work Phone: Start: 02-16-2022 End: 02-16-2022 Patient encounter procedure [facility]-Laboratory, Specimen Start: 02-16-2022 End: 02-16-2022 Subsequent hospital visit by physician Xr [facility] Work Phone: Radiology Comment on above: 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, estrogen receptor positive (HCC) [C50.811, C50.812, Z17.0] Start: 02-16-2022 End: 02-16-2022 ambulatory Rachid Moore DO Work Phone: Hematology/Oncology Comment on above: 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, estrogen receptor positive (HCC) (Primary Dx); Lung nodules; Encounter for monitoring cardiotoxic drug therapy; Dyspnea and respiratory abnormalities Start: 02-04-2022 End: 02-04-2022 ambulatory GARRY SANTOS Facility:[facility] Start: 02-04-2022 End: 02-04-2022 Patient encounter procedure Garry Santos MD Work Phone: [facility] Comment on above: Aftercare following surgery (Primary Dx); History of bilateral breast cancer Start: 01-26-2022 End: 01-27-2022 ambulatory JEANINE CACERES Facility:[facility] Start: 01-20-2022 Telephone encounter Garry perez MD Work Phone: [facility] Comment on above: Orders Start: 01-19-2022 End: 01-20-2022 ambulatory JEANINE CACERES Facility:[facility] Start: 01-19-2022 Encounter for other preprocedural examination GARRY SANTOS [facility] Start: 01-19-2022 End: 01-19-2022 Admission to [facility] Start: 01-19-2022 End: 01-19-20[address] Pst 1 Pre Surgical Testing Comment on above: Pre-op exam [Z01.818 (ICD-10-CM)] (Primary Dx); Malignant neoplasm of upper-outer quadrant of right breast in female, estrogen receptor positive (HCC) [C50.411, Z17.0 (ICD-10-CM)]; Malignant neoplasm of overlapping sites of right breast in female, estrogen receptor positive (HCC) [C50.811, Z17.0 (ICD-10-CM)] Start: 01-19-2022 End: 01-19-2022 Preprocedural examination done Pst 1 Pre Surgical Testing Start: 12-30-2021 Admission to [facility] Rachid Moore DO Work Phone: Hematology/Oncology Comment on above: Trish Gilliland/ surger y date Start: 12-30-2021 ambulatory Rachid Bowen Work Phone: [facility] Start: 12-29-2021 Orders Only Janet [facility] Comment on above: Malignant neoplasm o f upper-outer quadrant of both 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, estrogen receptor positive (HCC) (Primary Dx); 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, estrogen receptor positive (HCC) Start: 12-15-2021 Social Work Bess ELLSWORTH Hemat ology/Oncology Start: 12-09-2021 End: 12-10-2021 ambulatory JEANINE CACERES Facility:[facility] Start: 12-09-2021 End: 12-09-2021 Patient encounter procedure Garry Santos MD Work Phone: [facility] Comment on above: Malignant neoplasm o f upper-outer quadrant of both 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, estrogen receptor positive (HCC) (Primary Dx); 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, estrogen receptor positive (HCC) Start: 12-07-2021 Nursing evaluation o f patient and report Liat Vidales RN Hematology/Oncology Comment on above: Examination of parti cipant in clinical trial (Primary Dx) Start: 12-07-2021 End: 12-07-2021 Patient encounter procedure Liat Vidales RN Hematology/Oncology Start: 12-07-2021 End: 12-07-2021 ambulatory Lab[facility] Work Phone: Hematology/Oncology Comment on above: Malignant neoplasm o f upper-outer quadrant of left breast in female, estrogen receptor positive (HCC); Malignant neoplasm of central portion of both 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, estrogen receptor positive (HCC); Family history of malignant neoplasm of breast; Breast cancer metastasized to axillary lymph node, left (HCC) Malignant neoplasm o f upper-outer quadrant of left breast in female, estrogen receptor positive (HCC) (Primary Dx); 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, estrogen receptor positive (HCC) Start: 12-06-2021 End: 12-06-2021 Orders Only Rachid Moore DO Work Phone: Hematology/Oncology Comment on above: Malignant neoplasm o f upper-outer quadrant of left breast in female, estrogen receptor positive (HCC) (Primary Dx); Breast cancer metastasized to axillary lymph node, left (HCC) Malignant neoplasm o f upper-outer quadrant of both 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, estrogen receptor positive (HCC) [C50.411, Z17.0, C50.412] Start: 12-04-2021 ambulatory Rachid Bowen Work Phone: Hematology/Oncology Comment on above: Trish Gilliland/ biotin Start: 11-30-2021 Social Work Bess ELLSWORTH Hemat ology/Oncology Start: 11-29-2021 Social Work Bess ELLSWORTH Hemat ology/Oncology Comment on above: Trish Gilliland/ reply for return to work Start: 11-25-2021 ambulatory Rachid Bowen Work Phone: Hematology/Oncology Comment on above: Trish Gilliland/ Return to Work Start: 11-19-2021 End: 11-19-2021 ambulatory Treatment Rm 9 [facility] Work Phone: Hematology/Oncology Comment on above: Malignant neoplasm o f upper-outer quadrant of left breast in female, estrogen receptor positive (HCC) (Primary Dx) Start: 11-16-2021 Orders Only Rachid Bowen Work Phone: Hematology/Oncology Comment on above: Malignant neoplasm o f upper-outer quadrant of left breast in female, estrogen receptor positive (HCC) (Primary Dx) Start: 11-12-2021 Telephone encounter Bess Zhao Hematology/Oncology Comment on above: Social Work Services Start: 11-11-2021 End: 11-11-2021 Patient encounter procedure Rachid Moore DO Work Phone: [facility] Start: 11-11-2021 End: 11-11-2021 ambulatory Lab/[facility] Work Phone: Hematology/Oncology Comment on above: 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, estrogen receptor positive (HCC); Breast cancer metastasized to axillary lymph node, left (HCC) Malignant neoplasm o f upper-outer quadrant of left breast in female, estrogen receptor positive (HCC) (Primary Dx); 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, estrogen receptor positive (HCC) Start: 11-10-2021 Orders Only Rachid Bowen Work Phone: Hematology/Oncology Comment on above: 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, estrogen receptor positive (HCC) (Primary Dx); Breast cancer metastasized to axillary lymph node, left (HCC) Start: 11-05-2021 End: 11-05-2021 ambulatory Treatment Rm 1 [facility] Work Phone: Hematology/Oncology Comment on above: Malignant neoplasm o f upper-outer quadrant of left breast in female, estrogen receptor positive (HCC) (Primary Dx) Start: 11-04-2021 Orders Only Rachid Bowen Work Phone: Hematology/Oncology Comment on above: Malignant neoplasm o f upper-outer quadrant of left breast in female, estrogen receptor positive (HCC) (Primary Dx) Start: 11-03-2021 Telephone encounter Garry perez MD Work Phone: [facility] Comment on above: Orders (MRI Breast- Post Chemo) Start: 10-29-2021 End: 10-29-2021 ambulatory Treatment Rm 1 [facility] Work Phone: Hematology/Oncology Comment on above: Malignant neoplasm o f upper-outer quadrant of left breast in female, estrogen receptor positive (HCC) (Primary Dx) Start: 10-28-2021 Orders Only Rachid Bowen Work Phone: Hematology/Oncology Comment on above: Malignant neoplasm o f upper-outer quadrant of left breast in female, estrogen receptor positive (HCC) (Primary Dx) Start: 10-22-2021 End: 10-22-2021 ambulatory Treatment Rm 6 [facility] Work Phone: Hematology/Oncology Comment on above: Malignant neoplasm o f upper-outer quadrant of left breast in female, estrogen receptor positive (HCC) (Primary Dx) Start: 10-21-2021 End: 10-21-2021 Social Work Bess ELLSWORTH Hematology/Oncology Comment on above: 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, estrogen receptor positive (HCC) (Primary Dx); Chemotherapy-induced neuropathy (HCC) Start: 10-20-2021 Orders Only Rachid Bowen Work Phone: Hematology/Oncology Comment on above: Malignant neoplasm o f upper-outer quadrant of left breast in female, estrogen receptor positive (HCC) (Primary Dx); 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, estrogen receptor positive (HCC) Start: 10-13-2021 Refill Rachid Bowen Work Phone: Hematology/Oncology Comment on above: Refill Request Start: 10-05-2021 Telephone encounter Corrine Blackmon RN He matology/Oncology Comment on above: Make Up Editor - O ther (C1D1 Post Treatment Call ) Start: 10-01-2021 End: 10-01-2021 ambulatory Treatment Rm 2 [facility] Work Phone: Hematology/Oncology Comment on above: Malignant neoplasm o f upper-outer quadrant of left breast in female, estrogen receptor positive (HCC) (Primary Dx) Start: 09-30-2021 End: 09-30-[address] Work Phone: [facility] Start: 09-30-2021 End: 09-30-2021 Nutrition therapy Nancie Beckford RD Work Phone: Nutrition Therapy Comment on above: Nutrition Telephone Start: 09-30-2021 Nursing evaluation o f patient and report Liat Vidales RN Hematology/Oncology Comment on above: Examination of parti cipant in clinical trial (Primary Dx) Start: 09-30-2021 End: 09-30-2021 Patient encounter procedure Rachid Moore DO Work Phone: [facility] Start: 09-30-2021 End: 09-30-2021 ambulatory Lab/[facility] Work Phone: Hematology/Oncology Comment on above: 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, estrogen receptor positive (HCC) (Primary Dx); Malignant neoplasm of upper-outer quadrant of left breast in female, estrogen receptor positive (HCC) Malignant neoplasm o f upper-outer quadrant of left breast in female, estrogen receptor positive (HCC) (Primary Dx); 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, estrogen receptor positive (HCC) Start: 09-24-2021 End: 09-24-2021 ambulatory Treatment Rm 6 [facility] Work Phone: Hematology/Oncology Comment on above: 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, estrogen receptor positive (HCC) (Primary Dx); Malignant neoplasm of upper-outer quadrant of left breast in female, estrogen receptor positive (HCC) Start: 09-23-2021 Refill Stefan Friedman MD Work Phone: Hematology/Oncology Comment on above: Refill Request Start: 09-22-2021 Orders Only Rachid Bowen Work Phone: Hematology/Oncology Comment on above: 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, estrogen receptor positive (HCC) (Primary Dx); Malignant neoplasm of upper-outer quadrant of left breast in female, estrogen receptor positive (HCC) Start: 09-17-2021 Refill Rachid Bowen Work Phone: Hematology/Oncology Comment on above: Refill Request Start: 09-17-2021 Telephone encounter Rachid kurtz DO Work Phone: Hematology/Oncology Comment on above: Patient Update Start: 09-17-2021 End: 09-17-2021 ambulatory Treatment 11 [facility] Work Phone: Hematology/Oncology Comment on above: 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, estrogen receptor positive (HCC) (Primary Dx); Malignant neoplasm of upper-outer quadrant of left breast in female, estrogen receptor positive (HCC) Start: 09-16-2021 Orders Only Rachid Bowen Work Phone: Hematology/Oncology Comment on above: 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, estrogen receptor positive (HCC) (Primary Dx); Malignant neoplasm of upper-outer quadrant of left breast in female, estrogen receptor positive (HCC) Start: 09-10-2021 End: 09-10-2021 ambulatory Treatment 11 [facility] Work Phone: Hematology/Oncology Comment on above: 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, estrogen receptor positive (HCC) (Primary Dx) Start: 09-09-2021 End: 09-09-2021 ambulatory Lab/[facility] Work Phone: Hematology/Oncology Comment on above: 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, estrogen receptor positive (HCC); Malignant neoplasm of upper-outer quadrant of left breast in female, estrogen receptor positive (HCC); Breast cancer metastasized to axillary lymph node, left (HCC) 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, estrogen receptor positive (HCC) (Primary Dx) Start: 09-09-2021 End: 09-09-2021 Patient encounter procedure Ashley Berg APRN.DISPLAYER Work Phone: [facility] Start: 08-30-2021 End: 08-30-2021 ambulatory GARRY SANTOS Facility[facility] Start: 07-06-2021 ambulatory JEANINE CACERES Facil [facility]y:[facility] Start: 07-02-2021 End: 07-02-2021 ambulatory JESIKA MELTON [facility] Start: 06-29-2021 End: 06-29-2021 ambulatory GARRY SANTOS Facility[facility] Procedures Date Procedure Procedure Detail Performing Clinician Start: 11-18-2024 BD DXA TRABECULAR BONE SCORE (TBS) Ashley Berg [employer] PRINTING MACHINISTAlessandraDISPLAYER Work Phone: Start: 11-18-2024 Dxa bone density study 1/> sites axial angeljoann Ashley Berg [employer] MACHINIST.DISPLAYER Work Phone: Start: 04-06-2023 Computed tomography of abdomen and pelvis with intravenous contrast Start: 03-31-2023 STREP A MOLECULAR (POC) Maryam Herrera PA-C Work Phone: Start: 05-20-2022 Laparoscopic, Salpingo-oopherectomy (Bilateral) Dr. Jeanine Caceres Work Phone: Start: 05-04-2022 Dxa bone density study 1/> sites axial tori Friedman MD Work Phone: Start: 03-01-2022 Adult depression screening assessment Radha Mckeon MD, MD Work Phone: Start: 02-16-2022 CT angiography of chest with contrast Start: 02-16-2022 Radiologic exam chest 2 views Rachid Moore DO Work Phone: Start: 12-07-2021 Blood count complete auto&auto difrntl wbc Rachid Gravesi DO Work Phone: Start: 12-06-2021 Mri breast without&with contrast w/cad bilateral Garry Santos MD Work Phone: Start: 12-06-2021 Adult depression screening assessment Rachid Moore DO Work Phone: Start: 11-19-2021 Blood count complete auto&auto difrntl wbc Rachid Gravesi DO Work Phone: Start: 11-11-2021 CBC + DIFF Rachid A Masci DO Work Phone: Start: 11-11-2021 Comprehensive metabolic panel Rachid Garcia Masci DO Work Phone: Start: 11-05-2021 Blood count complete auto&auto difrntl wbc Rachid Garcia Masci DO Work Phone: Start: 10-29-2021 Blood count complete auto&auto difrntl wbc Rachid Garcia Masci DO Work Phone: Start: 09-30-2021 Blood count complete auto&auto difrntl wbc Rachid Garcia Masci DO Work Phone: Start: 09-24-2021 Blood count complete auto&auto difrntl wbc Rachid Garcia Masci DO Work Phone: Start: 09-17-2021 End: 09-17-2021 Blood count complete auto&auto difrntl wbc Rachid Garcia Masci DO Work Phone: Start: 09-09-2021 CBC + DIFF Ashley Berg [employer] MACHINIST.DISPLAYER Work Phone: Start: 09-09-2021 Comprehensive metabolic panel Ashley Berg [employer] MACHINIST.DISPLAYER Work Phone: Start: 07-02-2021 Mammography Lab/Port [facility] Work Phone: Start: 06-29-2021 Adult depression screening assessment Lab/Port [facility] Work Phone: H/O: bilateral oophorectomy S/P bilateral oophorectomy Dr. Jeanine Caceres Work Phone: History of bilateral mastectomy History of mastectomy, bilateral Ashley Berg [employer] MACHINIST.DISPLAYER Work Phone: Plan of Treatment Date Care Activity Detail Author Start: 02-15-2028 Diabetes Screening Diabetes Screenin [facility] Start: 08-17-2027 Diabetes Screening Diabetes Screenin [facility] Start: 07-27-2027 Screening for malign ant neoplasm of colon [facility] Start: 02-08-2027 Diabetes Screening Diabetes Screenin [facility] Start: 08-24-2026 Diabetes Screening Diabetes Screenin g [facility] Start: 06-16-2026 Diabetes Screening Diabetes Screenin g [facility] Start: 12-30-2025 DIABETES SCREEN DIABETES SCREEN [facility] Start: 12-30-2025 Diabetes Screening Diabetes Screenin g [facility] Start: 09-05-2025 DIABETES SCREEN DIABETES SCREEN [facility] Start: 07-15-2025 DIABETES SCREEN DIABETES SCREEN [facility] Start: 06-23-2025 End: 06-23-2025 ambulatory 06/23/2025 1:30 PM EST Visit (SP) Office Hematology/Oncology [address] [place] [address] Ashley Berg, [employer] MACHINIST.DISPLAYER [address] [place] [address] 6 MTH OV* Hematology/Oncology Comment on above: 6 MTH OV* Start: 04-19-2025 DIABETES SCREEN DIABETES SCREEN [facility] Start: 03-21-2025 DIABETES SCREEN DIABETES SCREEN [facility] Start: 02-16-2025 DIABETES SCREEN DIABETES SCREEN [facility] Start: 02-14-2025 End: 02-14-2025 ambulatory [facility] Comment on above: BMP(S)* pt requested date Start: 02-10-[address] [facility] Start: 01-31-2025 End: 01-31-2025 ambulatory [facility] Comment on above: BMP(S)* 2nd Start: 01-27-2025 DIABETES SCREEN DIABETES SCREEN [facility] Start: 12-18-2024 End: 12-18-2024 ambulatory 12/18/2024 2:00 PM EDT Visit (SP) Office Hematology/Oncology [address] [place] [address] Ashley Berg, [employer] MACHINIST.DISPLAYER [address] [place] [id number] 6 MTH OV* Hematology/Oncology Comment on above: 6 MTH OV* Start: 12-07-2024 DIABETES SCREEN DIABETES SCREEN [facility] Start: 11-11-2024 DIABETES SCREEN DIABETES SCREEN [facility] Start: 10-21-2024 DIABETES SCREEN DIABETES SCREEN [facility] Start: 09-30-2024 DIABETES SCREEN DIABETES SCREEN [facility] Start: 09-24-2024 DIABETES SCREEN DIABETES SCREEN [facility] Start: 09-17-2024 DIABETES SCREEN DIABETES SCREEN [facility] Start: 09-09-2024 DIABETES SCREEN DIABETES SCREEN [facility] Start: 07-29-2024 End: 07-29-2024 Patient encounter procedure 07/29/2024 3:25 PM EST Appointment Radiology [address] [place] [id number] Encounter for follow-up surveillance of breast cancer [Z08, Z85.3]; Menopause [Z78.0]; Aromatase inhibitor use [Z79.8 Radiology Comment on above: Encounter for follow -up surveillance of breast cancer [Z08, Z85.3]; Menopause [Z78.0]; Aromatase inhibitor use [Z79.8 Start: 07-26-2024 End: 07-26-2024 ambulatory [facility] Comment on above: BMP(S)* 2nd Start: 06-20-2024 End: 06-20-2024 ambulatory 06/20/2024 10:30 AM EST Visit (SP) Office Hematology/Oncology [address] [place] [address] Ashley Berg APRN.DISPLAYER [address] [place] [address] 6 MTH OV* Hematology/Oncology Comment on above: 6 MTH OV* Start: 2024 Pneumococcal Vaccine : 50+ (1 of 1 - PCV) Pneumococcal Vaccine: 50+ (1 of 1 - PCV) [facility] Start: 2024 Shingrix Vaccine (1 of 2) Gonzales grix Vaccine (1 of 2) [facility] Start: 02-11-2024 Covid-19 Vaccine ( season) Covid-19 Vaccine ( season) [facility] Start: 02-11-2024 Influenza vaccination Influenza Vacc ine (#1) [facility] Start: 02-09-2024 End: 02-09-2024 ambulatory [facility] Comment on above: BMP(S)* Q6MO ZOMETA/3-6/LAB EARLY/AUTH EXP?* Start: 06-12-2023 Behavioral Health Screening Behavioral Health Screening [facility] Start: 06-12-2023 Depression [facility] Start: 04-06-2023 [facility] Start: 04-06-2023 [facility] Start: 04-06-2023 Bacteria identified in Urine by Culture Urine Culture [facility] Start: 03-31-2023 End: 04-14-2023 SARS-CoV-2 (COVID-19) RNA [Presence] in Respiratory specimen by CAMERON with probe detection COVID NAAT, UPPER RESPIRATORY, ROUTINE Microbiology Routine URI with cough and congestion Expected: 03/31/2023, Expires: 04/14/2023 [facility] Work Phone: Comment on above: Expected: 03/31/2023 , Expires: 04/14/2023 Start: 03-01-2023 Adult depression scr eening assessment DEPRESSION SCREENING [facility] Start: 02-10-2023 Covid-19 Vaccine ( season) Covid-[address] () [facility] Start: 02-10-2023 Influenza vaccination C [facility] Start: 12-30-2022 End: 03-01-2023 Basic metabolic 2000 panel - Serum or Plasma BASIC METABOLIC PNL Lab STAT 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, estrogen receptor positive (HCC) Expected: 12/30/2022, Expires: 03/01/2023 [facility] Work Phone: Comment on above: Expected: 12/30/2022 , Expires: 03/01/2023 Start: 12-06-2022 Adult depression scr eening assessment DEPRESSION SCREENING [facility] Start: 07-02-[address] [facility] Start: 07-02-2022 Screening for malign ant neoplasm of breast Mammogram Screening [facility] Start: 06-29-2022 Adult depression scr eening assessment DEPRESSION SCREENING [facility] Start: 06-12-2022 DEPRESSION ASSESSMENT DEPRESSION ASS ESSMENT [facility] Start: 05-20-2022 Anesthesia intraperi toneal lower abd w/laps nos ANESTH SURG LOWER ABDOMEN [facility] Start: 05-20-2022 Laparoscopy w/rmvl a dnexal structures LAPAROSCOPY REMOVE ADNEXA [facility] Start: 05-20-2022 Ambulation without limitation [facility] Start: 05-20-2022 Medication education [facility] Start: 05-20-[address] [facility] Start: 05-20-2022 Taking patient vital signs [facility] Start: 05-20-2022 Vital signs measurements [facility] Start: 05-20-2022 [facility] Start: 04-19-2022 End: 06-19-2022 Basic metabolic 2000 panel - Serum or Plasma BASIC METABOLIC PNL Lab STAT 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, estrogen receptor positive (HCC) Expected: 04/19/2022, Expires: 06/19/2022 [facility] Work Phone: Comment on above: Expected: 04/19/2022 , Expires: 06/19/2022 Start: 02-10-2022 Influenza vaccination [facility] Start: 01-20-2022 End: 01-20-2023 SARS-CoV-2 (COVID-19) RNA [Presence] in Respiratory specimen by CAMERON with probe detection PRE-PROCEDURE & PRE-OPERATIVE COVID Microbiology Routine Malignant neoplasm of upper-outer quadrant of right female breast, unspecified estrogen receptor status (HCC) Expected: 01/20/2022, Expires: 01/20/2023 [facility] Work Phone: Comment on above: Expected: 01/20/2022 , Expires: 01/20/2023 Start: 12-07-2021 End: 02-06-2022 CBC W Auto Differential panel - Blood CBC + DIFF Lab STAT Malignant neoplasm of upper-outer quadrant of left breast in female, estrogen receptor positive (HCC) Breast cancer metastasized to axillary lymph node, left (HCC) Expected: 12/07/2021, Expires: 02/06/2022 [facility] Work Phone: Comment on above: Expected: 12/07/2021 , Expires: 02/06/2022 Start: 12-07-2021 End: 02-06-2022 Comprehensive metabolic 2000 panel - Serum or Plasma COMP METABOLIC PANEL Lab Routine Malignant neoplasm of upper-outer quadrant of left breast in female, estrogen receptor positive (HCC) Breast cancer metastasized to axillary lymph node, left (HCC) Expected: 12/07/2021, Expires: 02/06/2022 [facility] Work Phone: Comment on above: Expected: 12/07/2021 , Expires: 02/06/2022 Start: 11-29-2021 End: 12-03-2022 Mri breast without&with contrast w/cad bilateral MRI BREAST WO/W IVCON BILAT Radiology Routine 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, estrogen receptor positive (HCC) Expected: 11/29/2021, Expires: 12/03/2022 [facility] Work Phone: Comment on above: Expected: 11/29/2021 , Expires: 12/03/2022 Start: 11-19-2021 End: 01-19-2022 CBC W Auto Differential panel - Blood CBC + DIFF Lab STAT Malignant neoplasm of upper-outer quadrant of left breast in female, estrogen receptor positive (HCC) Expected: 11/19/2021, Expires: 01/19/2022 [facility] Work Phone: Comment on above: Expected: 11/19/2021 , Expires: 01/19/2022 Start: 11-11-2021 End: 01-11-2022 CBC W Auto Differential panel - Blood [facility] Work Phone: Comment on above: Expected: 11/11/2021 , Expires: 01/11/2022 Start: 11-11-2021 End: 01-11-2022 Comprehensive metabolic 2000 panel - Serum or Plasma COMP METABOLIC PANEL Lab STAT 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, estrogen receptor positive (HCC) Breast cancer metastasized to axillary lymph node, left (HCC) Expected: 11/11/2021, Expires: 01/11/2022 [facility] Work Phone: Comment on above: Expected: 11/11/2021 , Expires: 01/11/2022 Start: 11-05-2021 End: 01-05-2022 CBC W Auto Differential panel - Blood CBC + DIFF Lab STAT Malignant neoplasm of upper-outer quadrant of left breast in female, estrogen receptor positive (HCC) Expected: 11/05/2021, Expires: 01/05/2022 [facility] Work Phone: Comment on above: Expected: 11/05/2021 , Expires: 01/05/2022 Start: 10-29-2021 End: 12-29-2021 CBC W Auto Differential panel - Blood CBC + DIFF Lab STAT Malignant neoplasm of upper-outer quadrant of left breast in female, estrogen receptor positive (HCC) Expected: 10/29/2021, Expires: 12/29/2021 [facility] Work Phone: Comment on above: Expected: 10/29/2021 , Expires: 12/29/2021 Start: 10-21-2021 End: 12-21-2021 CBC W Auto Differential panel - Blood CBC + DIFF Lab STAT Malignant neoplasm of upper-outer quadrant of left breast in female, estrogen receptor positive (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, estrogen receptor positive (HCC) Expected: 10/21/2021, Expires: 12/21/2021 [facility] Work Phone: Comment on above: Expected: 10/21/2021 , Expires: 12/21/2021 Start: 10-21-2021 End: 12-21-2021 Comprehensive metabolic 2000 panel - Serum or Plasma COMP METABOLIC PANEL Lab Routine Malignant neoplasm of upper-outer quadrant of left breast in female, estrogen receptor positive (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, estrogen receptor positive (HCC) Expected: 10/21/2021, Expires: 12/21/2021 [facility] Work Phone: Comment on above: Expected: 10/21/2021 , Expires: 12/21/2021 Start: 09-24-2021 End: 11-24-2021 CBC W Auto Differential panel - Blood CBC + DIFF Lab STAT 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, estrogen receptor positive (HCC) Malignant neoplasm of upper-outer quadrant of left breast in female, estrogen receptor positive (HCC) Expected: 09/24/2021, Expires: 11/24/2021 [facility] Work Phone: Comment on above: Expected: 09/24/2021 , Expires: 11/24/2021 Start: 09-24-2021 End: 11-24-2021 Comprehensive metabolic 2000 panel - Serum or Plasma COMP METABOLIC PANEL Lab STAT 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, estrogen receptor positive (HCC) Malignant neoplasm of upper-outer quadrant of left breast in female, estrogen receptor positive (HCC) Expected: 09/24/2021, Expires: 11/24/2021 [facility] Work Phone: Comment on above: Expected: 09/24/2021 , Expires: 11/24/2021 Start: 09-17-2021 End: 11-17-2021 CBC W Auto Differential panel - Blood CBC + DIFF Lab STAT 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, estrogen receptor positive (HCC) Malignant neoplasm of upper-outer quadrant of left breast in female, estrogen receptor positive (HCC) Expected: 09/17/2021, Expires: 11/17/2021 [facility] Work Phone: Comment on above: Expected: 09/17/2021 , Expires: 11/17/2021 Start: 09-17-2021 End: 11-17-2021 Comprehensive metabolic 2000 panel - Serum or Plasma COMP METABOLIC PANEL Lab Routine 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, estrogen receptor positive (HCC) Malignant neoplasm of upper-outer quadrant of left breast in female, estrogen receptor positive (HCC) Expected: 09/17/2021, Expires: 11/17/2021 [facility] Work Phone: Comment on above: Expected: 09/17/2021 , Expires: 11/17/2021 Start: 06-12-2021 DEPRESSION ASSESSMENT DEPRESSION ASS ESSMENT [facility] Start: 02-10-2021 Influenza vaccination INFLUENZA (#1) [facility] Start: 2019 COLOGUARD (FIT-DNA) COLOGUARD (FIT-D NA) [facility] Start: [address] [facility] Start: 2019 COLORECTAL CANCER SCREENING COLORECTAL CANCER SCREENING [facility] Start: [address] COLONOGRAPHY [facility] Start: 2019 FECAL OCCULT BLOOD FECAL OCCULT BLOO D [facility] Start: 2019 Lipid 1996 panel - S debra or Plasma Lipid Screening [facility] Start: 2019 Lipid panel Lipid Screening [facility] Start: 2019 LIP[address] SCREEN LIPID SCREEN [facility] Start: 2019 Screening for malign ant neoplasm of colon [facility] Start: 2019 SIGMOIDOSCOPY SIGMOIDOSCOPY [facility] Start: 2004 HPV TESTING HPV TESTING [facility] Start: 2004 Screening for malign ant neoplasm of cervix HPV Testing [facility] Start: 1995 PAP TESTING PAP TESTING [facility] Start: 1995 Screening for malign ant neoplasm of cervix [facility] Start: 1993 Hepatitis B Vaccine (1 of 3 - 19+ 3-dose series) Hepatitis B Vaccine (1 of 3 - 19+ 3-dose series) [facility] Start: 1993 SHINGRIX VACCINE (1 of 2) GONZALES GRIX VACCINE (1 of 2) [facility] Start: [address] [facility] Start: 1992 Anxiety Screening Anxiety Screening [facility] Start: 1992 Depression Screening Depression Scre ening [facility] Start: 1992 HIV SCREENING HIV SCREENING [facility] Start: 1992 HIV screening HIV Screening [facility] Start: 1986 COVID-19 VACCINE (1) COVID-19 VACCIN E (1) [facility] Start: 1980 PNEUMOCOCCAL (1 - PCV) PNEUMOCOCCAL (1 - PCV) [facility] Start: 1979 COVID-19 VACCINE (#1) COVID-19 VACCI NE (#1) [facility] Start: 1974 COVID-19 VACCINE (#1) COVID-19 VACCI NE (#1) [facility] Start: 1974 HEPATITIS B (1 of 3 - 3-dose series) HEPATITIS B (1 of 3 - 3-dose series) [facility] Start: 1974 Hepatitis B Vaccine (1 of 3 - 3-dose series) Hepatitis B Vaccine (1 of 3 - 3-dose series) [facility] End: 07-20-2025 BD DXA TRABECULAR BONE SCORE (TBS) BD DXA TRABECULAR BONE SCORE (TBS) Radiology Routine Encounter for follow-up surveillance of breast cancer Menopause Aromatase inhibitor use 1 Occurrences starting 06/20/2024 until 07/20/2025 [facility] Comment on above: 1 Occurrences starti ng 06/20/2024 until 07/20/2025 CBC W Auto Different ial panel - Blood CBC + DIFF Lab STAT 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, estrogen receptor positive (HCC) Malignant neoplasm of upper-outer quadrant of left breast in female, estrogen receptor positive (HCC) Breast cancer metastasized to axillary lymph node, left (HCC) 09/09/2021 7:53 AM EDT [facility] Work Phone: End: 03-18-2023 CT CHEST W IVCON CT CHEST W IVCON Radiology Routine 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, estrogen receptor positive (HCC) Lung nodules 1 Occurrences starting 02/16/2022 until 03/18/2023 [facility] Work Phone: Comment on above: 1 Occurrences starti ng 02/16/2022 until 03/18/2023 CT SIM PLANNING RADI ATION ONCOLOGY CT SIM PLANNING RADIATION ONCOLOGY Radiology Routine Bilateral malignant neoplasm of breast in female, estrogen receptor positive, unspecified site of breast (HCC) Ordered: 02/28/2022 [facility] Work Phone: Comment on above: Ordered: 02/28/2022 End: 04-22-2023 Dxa bone density study 1/> sites axial skel DXA-AXIAL SKELETON Radiology Routine Encounter for screening for osteoporosis Asymptomatic postmenopausal status 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, estrogen receptor positive (HCC) 1 Occurrences starting 03/23/2022 until 04/22/2023 [facility] Work Phone: Comment on above: 1 Occurrences starti ng 03/23/2022 until 04/22/2023 End: 07-20-2025 DXA Skeletal system.axial Views for bone density DXA-AXIAL SKELETON Radiology Routine Encounter for follow-up surveillance of breast cancer Menopause Aromatase inhibitor use 1 Occurrences starting 06/20/2024 until 07/20/2025 [facility] Work Phone: Comment on above: 1 Occurrences starti ng 06/20/2024 until 07/20/2025 End: 06-20-2023 Echocardiography ECHO Cardiology Routine Bilateral malignant neoplasm of breast in female, unspecified estrogen receptor status, unspecified site of breast (HCC) 1 Occurrences starting 06/20/2022 until 06/20/2023 [facility] Work Phone: Comment on above: 1 Occurrences starti ng 06/20/2022 until 06/20/2023 End: 01-05-2023 Inj radioactive tracer for id of sentinel node [facility] Work Phone: Comment on above: 1 Occurrences starti ng 12/09/2021 until 01/05/2023 Patient Education [facility] Work Phone: Patient referral [facility] Work Phone: REFERRAL FOR ADDITIO NAL BIOMARKER AND MOLECULAR TESTING REFERRAL FOR ADDITIONAL BIOMARKER AND MOLECULAR TESTING Lab Routine 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, estrogen receptor positive (HCC) 02/16/2022 8:30 AM EDT [facility] Work Phone: Urine test [facility] Work Phone: Urine test [facility] [place] [facility] Payers Date Payer Category Payer Unknown [id number] 2024 Self-pay [id number] 2018 [employer] BLUE CARD PPO OOS [id number] 2018 Unknown [employer]THEM BLUE CARD PPO OOS [id number] 2018-Present [phone] [address] [place] [id number] PPO [id number] 2018 Unknown [employer]M BLUE CARD PPO OOS [id number] 2018-Present [phone] [address] [place] [id number] PPO [id number] 2018 Unknown [id number] Unknown [id number] Unknown [id number] Unknown [id number] Unknown [id number] Unknown [id number] Unknown [id number] Unknown [id number] Unknown [id number] Social History Date Type Detail Facility Start: 10-02-2018 End: 03-02-2022 Tobacco smoking status NHIS Never smoked tobacco [facility] Start: 09-09-2021 End: 06-20-2024 Alcohol intake Current non-drinker of alcohol (finding) [facility] Start: 1975 Sex Assigned At Female [facility] Start: 08-30-2021 End: 04-19-2022 Exposure to SARS-CoV-2 (event) Not sure [facility] Start: 10-31-2021 End: 11-10-2021 Exposure to SARS-CoV-2 (event) Unable to assess [facility] Start: 10-02-2018 End: 03-02-2022 Tobacco use and exposure Smokeless tobacco non-user [facility] Work Phone: Start: 02-16-2022 End: 04-06-2023 Tobacco smoking status NHIS Unknown if ever smoked [facility] Start: 11-15-2020 Occasional [facility] Start: 11-15-2020 None [facility] Start: 11-15-2020 Homeless [facility] Start: 11-15-2020 Non-smoker [facility] Start: 09-05-2022 End: 11-30-2022 History of Social function [facility] Start: 09-05-2022 End: 11-30-[address] [facility] Start: 05-13-2012 Adult Depression Screening Assessment 0 [facility] Start: 07-09-2021 Gender identity Identifies as female gender (finding) [facility] Start: 07-09-2021 Sexual orientation Heterosexual (corbin cabrera) [facility] Medical Equipment Procedure Code Equipment Code Equipment Origin al Text Equipment Identifier Dates Insertion, vascular access port ([id number]) Vascular port/catheter [id number] FDA Start: 07-07-2021 Goals Date Patient Goal Desired Activity /State Functional Status Date Assessment Result Facility 01-27-2022 Are you deaf, or do you have serious difficulty hearing No 01/27/2022 10:36 AM Rosita Ruiz RN [facility] 01-27-2022 Are you blind, or do you have serious difficulty seeing, even when wearing glasses No 01/27/2022 10:36 AM Rosita Ruiz RN [facility] 01-27-2022 Do you have serious difficulty walking or climbing stairs No 01/27/2022 10:36 AM Rosita Ruiz RN [facility] 01-27-2022 Do you have difficul ty dressing or bathing No 01/27/2022 10:36 AM Rosita Ruiz RN [facility] 01-27-2022 Because of a physica l, mental, or emotional condition, do you have difficulty doing errands alone such as visiting a physician's office or shopping No 01/27/2022 10:36 AM Rosita Ruiz RN [facility] Mental Status Date Assessment Result Facility 05-20-2022 Cognitive function Voice/Name;To [facility]/Deb fuentes [facility] Work Phone: 02-16-2022 Cognitive function Voice/Name [facility] Work Phone: 01-27-2022 Because of a physica l, mental, or emotional condition, do you have serious difficulty concentrating, remembering, or making decisions No 01/27/2022 10:36 AM EDT Rosita Raines RN No [facility] Clinical Notes 06-29-2021 to 12-18-2024 Ashley Begr APRN.DISPLAYER - 12/18/2024 1:50 PM Stella Block RT(Opal) - 11/18/2024 3:25 PM Ashley Zhang APRN.CNP - 06/20/2024 11:00 AM EST Note Date & Type Note Facility 12-18-2024 Note HNO ID: [id number] Author: ASHLEY BERG APRN.JANINE Service: ? Author Type: Nurse Practitioner Type: Progress Notes Filed: 12/18/2024 14:32 Note Text: Chief Complaint Patient presents with: Established Patient HPI: Trish Gilliland is a 49 year old female who presents here today for follow up breast cancer. Per Dr. Moore's previous note: H/o unremarkable past medical history. Patient appreciated a mass in the left breast starting about 8 months prior to presentation. She eventually developed pain and presented to the emergency room where she underwent a CTA of the chest on 06/14/2021. That study demonstrated no evidence of pulmonary embolism. There was an enhancing left axillary lymph node measuring 2.4 x 1.7 x 1.4 cm and there was also an ill-defined 2.4 x 2.3 x 2.1 cm soft tissue mass in the left breast. Smaller nodular density measuring 1 cm was observed in the upper medial right breast. There was evidence of old granulomatous disease without further comment. Patient underwent diagnostic mammogram on 06/15/2021 2 x 2.3 cm irregular mass in the anterior upper central portion of the left breast was observed. Biopsy was strongly recommended. There was also evidence of a 1.2 x 1 cm irregular nodule in the anterior subareolar region of the left breast for which biopsy was also recommended. The impression was bilateral breast masses but no comment was made on the right breast. Correlation with ultrasound the left axillary region was also recommended. Ultrasound of the right and left breasts was performed on 06/16/2021. Within the right breast there was a 7 x 7 x 7 mm ill-defined hypoechoic nodule with shadowing and increased blood flow at the 2 o'clock position of the breast at 5 cm from the nipple. There was a similar-appearing nodular density measuring 4 x 4 x 4 mm also observed at the 1 o'clock position of the breast 3 cm from the nipple. The impression was that of 2 adjacent hypoechoic irregular solid nodules at the 1 and 2 o'clock position of the breast as described. In the left breast there was a 2.7 x 3.5 x 2.3 cm irregular hypoechoic solid mass at the 12 o'clock position of the breast 3 cm from the nipple. Increased vascularity was observed. Biopsy was recommended. There was also evidence of a prominent lymph node in the left axillary region measuring 1.3 x 0.9 x 0.4 cm. Biopsy was recommended. Underwent biopsy on 06/16/2021. Ultrasound-guided biopsy was obtained of the left axillary enlarged lymph node with clip marking. The left breast mass was also biopsied using a 14-gauge biopsy needle with several passes and clipping. The right breast was also imaged with ultrasound and 2 masses were identified. Under ultrasound guidance, both of these masses were biopsied and clips were placed into each of them. Pathology: -Core biopsy of the RIGHT breast mass at the 2 o'clock position demonstrated invasive ductal carcinoma, nuclear grade 1. -Core biopsy of the RIGHT breast mass at 2 o'clock position also revealed fragments of benign breast tissue with fibrosis and focal minimal intraductal hyperplasia without atypia negative for malignancy. -The LEFT breast core biopsy demonstrated invasive ductal carcinoma, nuclear grade 2 as well as ductal carcinoma in situ. -LEFT axillary lymph node core biopsy revealed metastatic carcinoma consistent with breast primary. The comment reads that the left breast core biopsy demonstrating ductal carcinoma revealed DCIS comprising about 70% of the total tumor volume with solid pattern and nuclear grade 2. Necrosis and calcifications were not observed. The entire specimen from the lymph node biopsy demonstrated tumor. No lymph node tissue was identified. It measured 1.2 cm in greatest length and was nuclear grade 2. The cancer specimen from the right breast was ER/CT positive (both greater than 95%, strong intensity) and HER2 negative, IHC 0 The left breast tumor was ER positive (greater than 95%, moderate intensity), CT positive (25%, low to moderate intensity) and HER2 negative with IHC 0. MRI breasts 06/21/2021: Right breast: Breast tissue is scattered fibroglandular densities with minimal background enhancement. At the 2 o'clock position of the breast 4 cm behind the nipple and 5 cm above the nipple there were 2 irregular enhancing masses. The mass closest to the nipple measured 11 x 7 mm in diameter. Slightly above and more medial to this lesion was another smaller lesion measuring approximately 5 mm in diameter. Tissue clip artifact was noted medial to this superior lesion. Also of these lesions appeared to correspond to the ultrasound findings and were highly suspicious. Small axillary lymph nodes were noted none of which were pathologically enlarged. Left breast: There was a large enhancing mass at the 12 o'clock position 4.4 cm above the nipple and 4 cm behind the nipple measuring 3.4 x 2.7 x 3.6 cm. This lesion cor (more content not included)... [facility] 12-18-2024 History of Presen t illness Narrative Chief Complaint Patient presents with: Established Patient HPI: Trish Gilliland is a 49 year old female who presents here today for follow up breast cancer. Per Dr. Moore's previous note: H/o unremarkable past medical history. Patient appreciated a mass in the left breast starting about 8 months prior to presentation. She eventually developed pain and presented to the emergency room where she underwent a CTA of the chest on 06/14/2021. That study demonstrated no evidence of pulmonary embolism. There was an enhancing left axillary lymph node measuring 2.4 x 1.7 x 1.4 cm and there was also an ill-defined 2.4 x 2.3 x 2.1 cm soft tissue mass in the left breast. Smaller nodular density measuring 1 cm was observed in the upper medial right breast. There was evidence of old granulomatous disease without further comment. Patient underwent diagnostic mammogram on 06/15/2021 2 x 2.3 cm irregular mass in the anterior upper central portion of the left breast was observed. Biopsy was strongly recommended. There was also evidence of a 1.2 x 1 cm irregular nodule in the anterior subareolar region of the left breast for which biopsy was also recommended. The impression was bilateral breast masses but no comment was made on the right breast. Correlation with ultrasound the left axillary region was also recommended. Ultrasound of the right and left breasts was performed on 06/16/2021. Within the right breast there was a 7 x 7 x 7 mm ill-defined hypoechoic nodule with shadowing and increased blood flow at the 2 o'clock position of the breast at 5 cm from the nipple. There was a similar-appearing nodular density measuring 4 x 4 x 4 mm also observed at the 1 o'clock position of the breast 3 cm from the nipple. The impression was that of 2 adjacent hypoechoic irregular solid nodules at the 1 and 2 o'clock position of the breast as described. In the left breast there was a 2.7 x 3.5 x 2.3 cm irregular hypoechoic solid mass at the 12 o'clock position of the breast 3 cm from the nipple. Increased vascularity was observed. Biopsy was recommended. There was also evidence of a prominent lymph node in the left axillary region measuring 1.3 x 0.9 x 0.4 cm. Biopsy was recommended. Underwent biopsy on 06/16/2021. Ultrasound-guided biopsy was obtained of the left axillary enlarged lymph node with clip marking. The left breast mass was also biopsied using a 14-gauge biopsy needle with several passes and clipping. The right breast was also imaged with ultrasound and 2 masses were identified. Under ultrasound guidance, both of these masses were biopsied and clips were placed into each of them. Pathology: -Core biopsy of the RIGHT breast mass at the 2 o'clock position demonstrated invasive ductal carcinoma, nuclear grade 1. -Core biopsy of the RIGHT breast mass at 2 o'clock position also revealed fragments of benign breast tissue with fibrosis and focal minimal intraductal hyperplasia without atypia negative for malignancy. -The LEFT breast core biopsy demonstrated invasive ductal carcinoma, nuclear grade 2 as well as ductal carcinoma in situ. -LEFT axillary lymph node core biopsy revealed metastatic carcinoma consistent with breast primary. The comment reads that the left breast core biopsy demonstrating ductal carcinoma revealed DCIS comprising about 70% of the total tumor volume with solid pattern and nuclear grade 2. Necrosis and calcifications were not observed. The entire specimen from the lymph node biopsy demonstrated tumor. No lymph node tissue was identified. It measured 1.2 cm in greatest length and was nuclear grade 2. The cancer specimen from the right breast was ER/CT positive (both greater than 95%, strong intensity) and HER2 negative, IHC 0 The left breast tumor was ER positive (greater than 95%, moderate intensity), CT positive (25%, low to moderate intensity) and HER2 negative with IHC 0. MRI breasts 06/21/2021: Right breast: Breast tissue is scattered fibroglandular densities with minimal background enhancement. At the 2 o'clock position of the breast 4 cm behind the nipple and 5 cm above the nipple there were 2 irregular enhancing masses. The mass closest to the nipple measured 11 x 7 mm in diameter. Slightly above and more medial to this lesion was another smaller lesion measuring approximately 5 mm in diameter. Tissue clip artifact was noted medial to this superior lesion. Also of these lesions appeared to correspond to the ultrasound findings and were highly suspicious. Small axillary lymph nodes were noted none of which were pathologically enlarged. Left breast: There was a large enhancing mass at the 12 o'clock position 4.4 cm above the nipple and 4 cm behind the nipple measuring 3.4 x 2.7 x 3.6 cm. This lesion corresponded to the mass shown on ultrasound. Enlarged lymph node in the left axillary region measured 2.6 x 2.2 x 2.3 cm highly suspicious for tumor involvement. No abnormality was visualized in the regions of the chest or liver. Impression overall was 2 enhancing lesions in the right breast and a large enhancing lesion in the left breast corresponding to the ultrasound findings. Enlarged left axillary lymph node which was highly suspicious for tumor involvement. ------ She was having pain in the tumor of the left breast. Menses were irregular. Two children. Two boys ages 21 and 18. . works at [employer]. Underwent CT scan of chest, abdomen pelvis and was found to have pathologic left axillary lymphadenopathy. Breast masses were observed in each breast with the left being much larger than the right. There were nonspecific mildly prominent right hilar lymph node sequela of old granulomatous exposure and scattered less than 5 mm pulmonary nodules. Previous therapy: 1) AC followed by T. Had severe infusion reaction with the first 3 doses of Taxol. Following that therapy was changed to Abraxane. RADIATION 03/15/22 - 04/25/22 Bilateral chest wall/IM/SC/axilla Underwent bilateral mastectomy with right sentinel lymph node biopsy, left sentinel lymph node biopsy with frozen section, left axillary completion dissection and right Mediport removal on 01/26/2022. Previous therapy: Aromasin began September 2022 Letrozole began end of 2021 Both stopped d/t hand pain/foot pain. Arimidex Did not tolerate all 3 AI's. Pt. stopped arimidex November 2022. Current therapy: 1) Zometa every 6 months. First dose 07/15/22. S/p oophorectomy by Dr. Agosto. Lupron discontinued. Did not tolerate all 3 AI's. Pt. stopped arimidex November 2022. No new concerns today. Appetite:Crazy. Energy level:I have none. Working FT. Denies fevers or recent illness. Resp:denies cough or sob Cardiac:denies chest pain/palpitations GI:denies abd pain, n/v, moving bowels regularly :denies dysuria/hematuria Extrem:denies new pain Endo:+hot flashes Anywhere from 6-8 in 24 hours. PCP rx for neurontin. Not taking regularly. Neuro:tingling to feet -stable Skin:denies rashes/lesions Heme:denies bleeding The ROS is otherwise negative. Past medical history, appointments, medications, allergies reviewed. No changes. EXAM: BP 115/69 Pulse 79 Temp 36.3 C (97.4 F) (Temporal) Wt 108.2 kg (238 lb 8.6 oz) LMP 10/11/2021 SpO2 99% BMI 37.08 kg/m APPEARANCE Well appearing, alert, in no acute distress, well-hydrated, well nourished. HEART RRR with normal S1 and S2, no murmurs LUNG clear to auscultation BREAST FEMALE b/l mastectomy scars, no mass/nodules/skin changes LYMPH NODES No cervical lymphadenopathy, No supraclavicular lymphadenopathy, and No axillary lymphadenopathy. ABDOMEN bowel sounds normoactive, soft, non-tender EXTREMITIES No edema NEURO Awake, alert and oriented x 3, Normal gait, and No involuntary motions. SKIN Skin color, texture, turgor normal, no suspicious rashes or lesions ASSESSMENT/PLAN: 1. Encounter for follow-up surveillance of breast cancer - ICD9: V67.9, V10.3, ICD10: Z08, Z85.3 cT1c cN0 ER/CT positive (both greater than 95%, strong intensity) and HER2 negative, IHC 0 stage 1A infiltrating ductal carcinoma of the RIGHT breast. cT2 cN1 ER positive (greater than 95%, moderate intensity), CT positive (25%, low to moderate intensity), HER2 negative with IHC 0 stage IIB infiltrating ductal carcinoma of the LEFT breast. ypT2 (3.3 cm; grade 2; +LVI) pN1a (two of 15 LNs +; largest 2.8 cm without extranodal extension) ER/CT positive, HER2 1+ (enriched) stage IIB invasive ductal carcinoma of the LEFT breast. ypT1c (1.1 cm; grade 2; LVI not determined) pN1mi (2 of 5 LNs; largest 1 mm deposit) ER/CT positive, HER2 0 stage IB invasive ductal carcinoma of the RIGHT breast. Genetic testing negative. Ki-67 proliferative index: 1 % of invasive carcinoma cells with nuclear positivity - No concerning findings on exam. - Letrozole/aromasin discontinued d/t hand/foot pain. - Did not tolerate arimidex or the other AI's. - Pt. self discontinued arimidex and neurontin (hot flashes/neuropathy). - Continue zometa every 6 months with BMP for a total of 6 doses. First dose 2022. - #6 zometa (last one) as scheduled in February. - Follow up in 6 months. - Pt. aware to call office with any questions/concerns. The patient indicates understanding of these issues and agrees with the plan. All documentation from previous visit of 06/20/24-Dr. Moore/myself was copied and pasted, documentation has been reviewed and edited as necessary for today's visit. Ashley Berg APRN.JANINE documented in this encounter [facility] 11-18-2024 History of Presen t illness Narrative Radiology Service Progress Note PATIENT NAME: Trish Gilliland DATE OF SERVICE: November 18, 2024 TIME: 1:06 PM PATIENT IDENTITY VERIFICATION COMPLETED USING TWO (2) IDENTIFIERS: Name and Date of confirmed by patient verbally. FALL SCREENING: Has the patient had 2 falls in the last year or 1 fall with injury or currently using an Ambulatory Assistive Device (Walker, Cane, Wheelchair, Crutches, etc.)? No PATIENT GENDER DATA: Assigned female at . status: : No status: NO. PATIENT RELEVANT IMPLANT DATA REVIEWED: Not Applicable PATIENT PRESENTS WITH AN IMPLANTABLE OR ATTACHED TELEPHONE ANSWERING SERVICE OPERATOR: No RADIOLOGY DEPARTMENT: Bone Density PERIPHERAL IV DATA: Not applicable SIGNED BY: RT Errol(Opal) November 18, 2024 1:06 PM documented in this encounter [facility] 11-18-2024 Note HNO ID: [id number] Author: STELLA PERKINS RT(R) Service: ? Author Type: Technologist Type: Progress Notes Filed: 11/18/2024 13:16 Note Text: Radiology Service Progress Note PATIENT NAME: Trish Gilliland DATE OF SERVICE: November 18, 2024 TIME: 1:06 PM PATIENT IDENTITY VERIFICATION COMPLETED USING TWO (2) IDENTIFIERS: Name and Date of confirmed by patient verbally. FALL SCREENING: Has the patient had 2 falls in the last year or 1 fall with injury or currently using an Ambulatory Assistive Device (Walker, Cane, Wheelchair, Crutches, etc.)? No PATIENT GENDER DATA: Assigned female at . status: : No status: NO. PATIENT RELEVANT IMPLANT DATA REVIEWED: Not Applicable PATIENT PRESENTS WITH AN IMPLANTABLE OR ATTACHED TELEPHONE ANSWERING SERVICE OPERATOR: No RADIOLOGY DEPARTMENT: Bone Density PERIPHERAL IV DATA: Not applicable SIGNED BY: RT Errol(Opal) November 18, 2024 1:06 PM [facility] 06-20-2024 Note HNO ID: [id number] Author: ASHLEY BERG APRN.JANINE Service: ? Author Type: Nurse Practitioner Type: Progress Notes Filed: 06/20/2024 13:46 Note Text: Chief Complaint Patient presents with: Established Patient HPI: Trish Gilliland is a 49 year old female who presents here today for follow up breast cancer. Per Dr. Moore's previous note: H/o unremarkable past medical history. Patient appreciated a mass in the left breast starting about 8 months prior to presentation. She eventually developed pain and presented to the emergency room where she underwent a CTA of the chest on 06/14/2021. That study demonstrated no evidence of pulmonary embolism. There was an enhancing left axillary lymph node measuring 2.4 x 1.7 x 1.4 cm and there was also an ill-defined 2.4 x 2.3 x 2.1 cm soft tissue mass in the left breast. Smaller nodular density measuring 1 cm was observed in the upper medial right breast. There was evidence of old granulomatous disease without further comment. Patient underwent diagnostic mammogram on 06/15/2021 2 x 2.3 cm irregular mass in the anterior upper central portion of the left breast was observed. Biopsy was strongly recommended. There was also evidence of a 1.2 x 1 cm irregular nodule in the anterior subareolar region of the left breast for which biopsy was also recommended. The impression was bilateral breast masses but no comment was made on the right breast. Correlation with ultrasound the left axillary region was also recommended. Ultrasound of the right and left breasts was performed on 06/16/2021. Within the right breast there was a 7 x 7 x 7 mm ill-defined hypoechoic nodule with shadowing and increased blood flow at the 2 o'clock position of the breast at 5 cm from the nipple. There was a similar-appearing nodular density measuring 4 x 4 x 4 mm also observed at the 1 o'clock position of the breast 3 cm from the nipple. The impression was that of 2 adjacent hypoechoic irregular solid nodules at the 1 and 2 o'clock position of the breast as described. In the left breast there was a 2.7 x 3.5 x 2.3 cm irregular hypoechoic solid mass at the 12 o'clock position of the breast 3 cm from the nipple. Increased vascularity was observed. Biopsy was recommended. There was also evidence of a prominent lymph node in the left axillary region measuring 1.3 x 0.9 x 0.4 cm. Biopsy was recommended. Underwent biopsy on 06/16/2021. Ultrasound-guided biopsy was obtained of the left axillary enlarged lymph node with clip marking. The left breast mass was also biopsied using a 14-gauge biopsy needle with several passes and clipping. The right breast was also imaged with ultrasound and 2 masses were identified. Under ultrasound guidance, both of these masses were biopsied and clips were placed into each of them. Pathology: -Core biopsy of the RIGHT breast mass at the 2 o'clock position demonstrated invasive ductal carcinoma, nuclear grade 1. -Core biopsy of the RIGHT breast mass at 2 o'clock position also revealed fragments of benign breast tissue with fibrosis and focal minimal intraductal hyperplasia without atypia negative for malignancy. -The LEFT breast core biopsy demonstrated invasive ductal carcinoma, nuclear grade 2 as well as ductal carcinoma in situ. -LEFT axillary lymph node core biopsy revealed metastatic carcinoma consistent with breast primary. The comment reads that the left breast core biopsy demonstrating ductal carcinoma revealed DCIS comprising about 70% of the total tumor volume with solid pattern and nuclear grade 2. Necrosis and calcifications were not observed. The entire specimen from the lymph node biopsy demonstrated tumor. No lymph node tissue was identified. It measured 1.2 cm in greatest length and was nuclear grade 2. The cancer specimen from the right breast was ER/CT positive (both greater than 95%, strong intensity) and HER2 negative, IHC 0 The left breast tumor was ER positive (greater than 95%, moderate intensity), CT positive (25%, low to moderate intensity) and HER2 negative with IHC 0. MRI breasts 06/21/2021: Right breast: Breast tissue is scattered fibroglandular densities with minimal background enhancement. At the 2 o'clock position of the breast 4 cm behind the nipple and 5 cm above the nipple there were 2 irregular enhancing masses. The mass closest to the nipple measured 11 x 7 mm in diameter. Slightly above and more medial to this lesion was another smaller lesion measuring approximately 5 mm in diameter. Tissue clip artifact was noted medial to this superior lesion. Also of these lesions appeared to correspond to the ultrasound findings and were highly suspicious. Small axillary lymph nodes were noted none of which were pathologically enlarged. Left breast: There was a large enhancing mass at the 12 o'clock position 4.4 cm above the nipple and 4 cm behind the nipple measuring 3.4 x 2.7 x 3.6 cm. This lesion cor (more content not included)... [facility] 06-20-2024 History of Presen t illness Narrative Chief Complaint Patient presents with: Established Patient HPI: Trish Gilliland is a 49 year old female who presents here today for follow up breast cancer. Per Dr. Moore's previous note: H/o unremarkable past medical history. Patient appreciated a mass in the left breast starting about 8 months prior to presentation. She eventually developed pain and presented to the emergency room where she underwent a CTA of the chest on 06/14/2021. That study demonstrated no evidence of pulmonary embolism. There was an enhancing left axillary lymph node measuring 2.4 x 1.7 x 1.4 cm and there was also an ill-defined 2.4 x 2.3 x 2.1 cm soft tissue mass in the left breast. Smaller nodular density measuring 1 cm was observed in the upper medial right breast. There was evidence of old granulomatous disease without further comment. Patient underwent diagnostic mammogram on 06/15/2021 2 x 2.3 cm irregular mass in the anterior upper central portion of the left breast was observed. Biopsy was strongly recommended. There was also evidence of a 1.2 x 1 cm irregular nodule in the anterior subareolar region of the left breast for which biopsy was also recommended. The impression was bilateral breast masses but no comment was made on the right breast. Correlation with ultrasound the left axillary region was also recommended. Ultrasound of the right and left breasts was performed on 06/16/2021. Within the right breast there was a 7 x 7 x 7 mm ill-defined hypoechoic nodule with shadowing and increased blood flow at the 2 o'clock position of the breast at 5 cm from the nipple. There was a similar-appearing nodular density measuring 4 x 4 x 4 mm also observed at the 1 o'clock position of the breast 3 cm from the nipple. The impression was that of 2 adjacent hypoechoic irregular solid nodules at the 1 and 2 o'clock position of the breast as described. In the left breast there was a 2.7 x 3.5 x 2.3 cm irregular hypoechoic solid mass at the 12 o'clock position of the breast 3 cm from the nipple. Increased vascularity was observed. Biopsy was recommended. There was also evidence of a prominent lymph node in the left axillary region measuring 1.3 x 0.9 x 0.4 cm. Biopsy was recommended. Underwent biopsy on 06/16/2021. Ultrasound-guided biopsy was obtained of the left axillary enlarged lymph node with clip marking. The left breast mass was also biopsied using a 14-gauge biopsy needle with several passes and clipping. The right breast was also imaged with ultrasound and 2 masses were identified. Under ultrasound guidance, both of these masses were biopsied and clips were placed into each of them. Pathology: -Core biopsy of the RIGHT breast mass at the 2 o'clock position demonstrated invasive ductal carcinoma, nuclear grade 1. -Core biopsy of the RIGHT breast mass at 2 o'clock position also revealed fragments of benign breast tissue with fibrosis and focal minimal intraductal hyperplasia without atypia negative for malignancy. -The LEFT breast core biopsy demonstrated invasive ductal carcinoma, nuclear grade 2 as well as ductal carcinoma in situ. -LEFT axillary lymph node core biopsy revealed metastatic carcinoma consistent with breast primary. The comment reads that the left breast core biopsy demonstrating ductal carcinoma revealed DCIS comprising about 70% of the total tumor volume with solid pattern and nuclear grade 2. Necrosis and calcifications were not observed. The entire specimen from the lymph node biopsy demonstrated tumor. No lymph node tissue was identified. It measured 1.2 cm in greatest length and was nuclear grade 2. The cancer specimen from the right breast was ER/CT positive (both greater than 95%, strong intensity) and HER2 negative, IHC 0 The left breast tumor was ER positive (greater than 95%, moderate intensity), CT positive (25%, low to moderate intensity) and HER2 negative with IHC 0. MRI breasts 06/21/2021: Right breast: Breast tissue is scattered fibroglandular densities with minimal background enhancement. At the 2 o'clock position of the breast 4 cm behind the nipple and 5 cm above the nipple there were 2 irregular enhancing masses. The mass closest to the nipple measured 11 x 7 mm in diameter. Slightly above and more medial to this lesion was another smaller lesion measuring approximately 5 mm in diameter. Tissue clip artifact was noted medial to this superior lesion. Also of these lesions appeared to correspond to the ultrasound findings and were highly suspicious. Small axillary lymph nodes were noted none of which were pathologically enlarged. Left breast: There was a large enhancing mass at the 12 o'clock position 4.4 cm above the nipple and 4 cm behind the nipple measuring 3.4 x 2.7 x 3.6 cm. This lesion corresponded to the mass shown on ultrasound. Enlarged lymph node in the left axillary region measured 2.6 x 2.2 x 2.3 cm highly suspicious for tumor involvement. No abnormality was visualized in the regions of the chest or liver. Impression overall was 2 enhancing lesions in the right breast and a large enhancing lesion in the left breast corresponding to the ultrasound findings. Enlarged left axillary lymph node which was highly suspicious for tumor involvement. ------ She was having pain in the tumor of the left breast. Menses were irregular. Two children. Two boys ages 21 and 18. . works at [employer]. Underwent CT scan of chest, abdomen pelvis and was found to have pathologic left axillary lymphadenopathy. Breast masses were observed in each breast with the left being much larger than the right. There were nonspecific mildly prominent right hilar lymph node sequela of old granulomatous exposure and scattered less than 5 mm pulmonary nodules. Previous therapy: 1) AC followed by T. Had severe infusion reaction with the first 3 doses of Taxol. Following that therapy was changed to Abraxane. RADIATION 03/15/22 - 04/25/22 Bilateral chest wall/IM/SC/axilla Underwent bilateral mastectomy with right sentinel lymph node biopsy, left sentinel lymph node biopsy with frozen section, left axillary completion dissection and right Mediport removal on 01/26/2022. Previous therapy: Aromasin began September 2022 Letrozole began end of 2021 Both stopped d/t hand pain/foot pain. Arimidex Did not tolerate all 3 AI's. Pt. stopped arimidex November 2022. Current therapy: 1) Zometa every 6 months. First dose 07/15/22. S/p oophorectomy by Dr. Agosto. Lupron discontinued. Did not tolerate all 3 AI's. Pt. stopped arimidex November 2022. No new concerns today. Appetite:Stable. Energy level:It's Ok. Working FT. Denies fevers or recent illness. Resp:denies cough or sob Cardiac:denies chest pain/palpitations GI:denies abd pain, n/v, moving bowels regularly :denies dysuria/hematuria Extrem:denies pain Endo:+hot flashes 6-7ish per day. It happens more at night. Improved. Neuro:tingling to feet-Not like it was. Skin:denies rashes/lesions Heme:denies bleeding The ROS is otherwise negative. Past medical history, appointments, medications, allergies reviewed. No changes. EXAM: BP 115/70 Pulse 89 Temp 36.6 C (97.9 F) (Temporal) Wt 108 kg (238 lb 1.6 oz) LMP 10/11/2021 SpO2 97% BMI 37.01 kg/m APPEARANCE Well appearing, alert, in no acute distress, well-hydrated, well nourished. HEART RRR with normal S1 and S2, no murmurs LUNG clear to auscultation BREAST FEMALE b/l mastectomy scars, no mass/nodules/skin changes LYMPH NODES No cervical lymphadenopathy, No supraclavicular lymphadenopathy, and No axillary lymphadenopathy. ABDOMEN bowel sounds normoactive, soft, non-tender EXTREMITIES No edema NEURO Awake, alert and oriented x 3, Normal gait, and No involuntary motions. SKIN Skin color, texture, turgor normal, no suspicious rashes or lesions ASSESSMENT/PLAN: 1. Encounter for follow-up surveillance of breast cancer - ICD9: V67.9, V10.3, ICD10: Z08, Z85.3 (primary diagnosis) cT1c cN0 ER/CT positive (both greater than 95%, strong intensity) and HER2 negative, IHC 0 stage 1A infiltrating ductal carcinoma of the RIGHT breast. cT2 cN1 ER positive (greater than 95%, moderate intensity), CT positive (25%, low to moderate intensity), HER2 negative with IHC 0 stage IIB infiltrating ductal carcinoma of the LEFT breast. ypT2 (3.3 cm; grade 2; +LVI) pN1a (two of 15 LNs +; largest 2.8 cm without extranodal extension) ER/CT positive, HER2 1+ (enriched) stage IIB invasive ductal carcinoma of the LEFT breast. ypT1c (1.1 cm; grade 2; LVI not determined) pN1mi (2 of 5 LNs; largest 1 mm deposit) ER/CT positive, HER2 0 stage IB invasive ductal carcinoma of the RIGHT breast. Genetic testing negative. Ki-67 proliferative index: 1 % of invasive carcinoma cells with nuclear positivity - No concerning findings on exam. - Letrozole/aromasin discontinued d/t hand/foot pain. - Did not tolerate arimidex or the other AI's. - Pt. self discontinued arimidex and neurontin (hot flashes/neuropathy). - Continue zometa every 6 months with BMP for a total of 6 doses. First dose 2022. - #5 zometa as scheduled in Jul. - Needs bone density. - Follow up in 6 months. - Pt. aware to call office with any questions/concerns. The sensitive examination was discussed with the Patient or Patient's Authorized Plant Manager. As applicable, any other physician, advance practice provider, medical student, or other health professional student that will be observing or involved in the sensitive examination for educational or training purposes was discussed with the Patient or Authorized Plant Manager. The Patient or Authorized Plant Manager has agreed to proceed with the sensitive examination. (Sensitive examination includes inspection and/or palpation of the breasts, pelvis, prostate and anorectal regions) The patient indicates understanding of these issues and agrees with the plan. All documentation from previous visit of 12/19/23-Dr. Moore/myself was copied and pasted, documentation has been reviewed and edited as necessary for today's visit. Ashley Berg APRN.JANINE documented in this encounter [facility] 12-19-2023 History of Presen t illness Narrative Chief Complaint Patient presents with: Established Patient HPI: Trish Gilliland is a 48 year old female who presents here today for follow up breast cancer. Per Dr. Moore's previous note: H/o unremarkable past medical history. Patient appreciated a mass in the left breast starting about 8 months prior to presentation. She eventually developed pain and presented to the emergency room where she underwent a CTA of the chest on 06/14/2021. That study demonstrated no evidence of pulmonary embolism. There was an enhancing left axillary lymph node measuring 2.4 x 1.7 x 1.4 cm and there was also an ill-defined 2.4 x 2.3 x 2.1 cm soft tissue mass in the left breast. Smaller nodular density measuring 1 cm was observed in the upper medial right breast. There was evidence of old granulomatous disease without further comment. Patient underwent diagnostic mammogram on 06/15/2021 2 x 2.3 cm irregular mass in the anterior upper central portion of the left breast was observed. Biopsy was strongly recommended. There was also evidence of a 1.2 x 1 cm irregular nodule in the anterior subareolar region of the left breast for which biopsy was also recommended. The impression was bilateral breast masses but no comment was made on the right breast. Correlation with ultrasound the left axillary region was also recommended. Ultrasound of the right and left breasts was performed on 06/16/2021. Within the right breast there was a 7 x 7 x 7 mm ill-defined hypoechoic nodule with shadowing and increased blood flow at the 2 o'clock position of the breast at 5 cm from the nipple. There was a similar-appearing nodular density measuring 4 x 4 x 4 mm also observed at the 1 o'clock position of the breast 3 cm from the nipple. The impression was that of 2 adjacent hypoechoic irregular solid nodules at the 1 and 2 o'clock position of the breast as described. In the left breast there was a 2.7 x 3.5 x 2.3 cm irregular hypoechoic solid mass at the 12 o'clock position of the breast 3 cm from the nipple. Increased vascularity was observed. Biopsy was recommended. There was also evidence of a prominent lymph node in the left axillary region measuring 1.3 x 0.9 x 0.4 cm. Biopsy was recommended. Underwent biopsy on 06/16/2021. Ultrasound-guided biopsy was obtained of the left axillary enlarged lymph node with clip marking. The left breast mass was also biopsied using a 14-gauge biopsy needle with several passes and clipping. The right breast was also imaged with ultrasound and 2 masses were identified. Under ultrasound guidance, both of these masses were biopsied and clips were placed into each of them. Pathology: -Core biopsy of the RIGHT breast mass at the 2 o'clock position demonstrated invasive ductal carcinoma, nuclear grade 1. -Core biopsy of the RIGHT breast mass at 2 o'clock position also revealed fragments of benign breast tissue with fibrosis and focal minimal intraductal hyperplasia without atypia negative for malignancy. -The LEFT breast core biopsy demonstrated invasive ductal carcinoma, nuclear grade 2 as well as ductal carcinoma in situ. -LEFT axillary lymph node core biopsy revealed metastatic carcinoma consistent with breast primary. The comment reads that the left breast core biopsy demonstrating ductal carcinoma revealed DCIS comprising about 70% of the total tumor volume with solid pattern and nuclear grade 2. Necrosis and calcifications were not observed. The entire specimen from the lymph node biopsy demonstrated tumor. No lymph node tissue was identified. It measured 1.2 cm in greatest length and was nuclear grade 2. The cancer specimen from the right breast was ER/CT positive (both greater than 95%, strong intensity) and HER2 negative, IHC 0 The left breast tumor was ER positive (greater than 95%, moderate intensity), CT positive (25%, low to moderate intensity) and HER2 negative with IHC 0. MRI breasts 06/21/2021: Right breast: Breast tissue is scattered fibroglandular densities with minimal background enhancement. At the 2 o'clock position of the breast 4 cm behind the nipple and 5 cm above the nipple there were 2 irregular enhancing masses. The mass closest to the nipple measured 11 x 7 mm in diameter. Slightly above and more medial to this lesion was another smaller lesion measuring approximately 5 mm in diameter. Tissue clip artifact was noted medial to this superior lesion. Also of these lesions appeared to correspond to the ultrasound findings and were highly suspicious. Small axillary lymph nodes were noted none of which were pathologically enlarged. Left breast: There was a large enhancing mass at the 12 o'clock position 4.4 cm above the nipple and 4 cm behind the nipple measuring 3.4 x 2.7 x 3.6 cm. This lesion corresponded to the mass shown on ultrasound. Enlarged lymph node in the left axillary region measured 2.6 x 2.2 x 2.3 cm highly suspicious for tumor involvement. No abnormality was visualized in the regions of the chest or liver. Impression overall was 2 enhancing lesions in the right breast and a large enhancing lesion in the left breast corresponding to the ultrasound findings. Enlarged left axillary lymph node which was highly suspicious for tumor involvement. ------ She was having pain in the tumor of the left breast. Menses were irregular. Two children. Two boys ages 21 and 18. . works at [employer]. Underwent CT scan of chest, abdomen pelvis and was found to have pathologic left axillary lymphadenopathy. Breast masses were observed in each breast with the left being much larger than the right. There were nonspecific mildly prominent right hilar lymph node sequela of old granulomatous exposure and scattered less than 5 mm pulmonary nodules. Previous therapy: 1) AC followed by T. Had severe infusion reaction with the first 3 doses of Taxol. Following that therapy was changed to Abraxane. RADIATION 03/15/22 - 04/25/22 Bilateral chest wall/IM/SC/axilla Underwent bilateral mastectomy with right sentinel lymph node biopsy, left sentinel lymph node biopsy with frozen section, left axillary completion dissection and right Mediport removal on 01/26/2022. Previous therapy: Aromasin began September 2022 Letrozole began end of 2021 Both stopped d/t hand pain/foot pain. Arimidex Did not tolerate all 3 AI's. Pt. stopped arimidex November 2022. Current therapy: 1) Zometa every 6 months. First dose 07/15/22. S/p oophorectomy by Dr. Agosto. Lupron discontinued. Did not tolerate all 3 AI's. Pt. stopped arimidex November 2022. No new concerns today. Appetite:Stable. Energy level:It's jeremias tanked. It's very hot where I work. Working FT. Denies fevers or recent illness. Resp:denies cough or sob Cardiac:denies chest pain/palpitations GI:denies abd pain, n/v, moving bowels regularly :denies dysuria/hematuria Extrem:occ. shoulder pain Endo:+hot flashes They come and go. Maybe 7-8 in a day. They haven't happened at night. Improved. Neuro:tingling to feet-I notice from time to time. Skin:denies rashes/lesions Heme:denies bleeding The ROS is otherwise negative. Past medical history, appointments, medications, allergies reviewed. No changes. EXAM: BP 121/79 Pulse 82 Temp 36.6 C (97.9 F) (Temporal) Wt 109 kg (240 lb 4.8 oz) LMP 10/11/2021 SpO2 97% BMI 37.36 kg/m APPEARANCE Well appearing, alert, in no acute distress, well-hydrated, well nourished. HEART RRR with normal S1 and S2, no murmurs LUNG clear to auscultation BREAST FEMALE b/l mastectomy scars, no nodule or skin changes LYMPH NODES No cervical lymphadenopathy, No supraclavicular lymphadenopathy, and No axillary lymphadenopathy. ABDOMEN bowel sounds normoactive, soft, non-tender EXTREMITIES No edema NEURO Awake, alert and oriented x 3, Normal gait, and No involuntary motions. SKIN Skin color, texture, turgor normal, no suspicious rashes or lesions ASSESSMENT/PLAN: 1. 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, estrogen receptor positive (HCC) - ICD9: 174.8, V86.0, ICD10: C50.811, C50.812, Z17.0 cT1c cN0 ER/CT positive (both greater than 95%, strong intensity) and HER2 negative, IHC 0 stage 1A infiltrating ductal carcinoma of the RIGHT breast. cT2 cN1 ER positive (greater than 95%, moderate intensity), CT positive (25%, low to moderate intensity), HER2 negative with IHC 0 stage IIB infiltrating ductal carcinoma of the LEFT breast. ypT2 (3.3 cm; grade 2; +LVI) pN1a (two of 15 LNs +; largest 2.8 cm without extranodal extension) ER/CT positive, HER2 1+ (enriched) stage IIB invasive ductal carcinoma of the LEFT breast. ypT1c (1.1 cm; grade 2; LVI not determined) pN1mi (2 of 5 LNs; largest 1 mm deposit) ER/CT positive, HER2 0 stage IB invasive ductal carcinoma of the RIGHT breast. Genetic testing negative. Ki-67 proliferative index: 1 % of invasive carcinoma cells with nuclear positivity - No concerning findings on exam. - Letrozole/aromasin discontinued d/t hand/foot pain. - Did not tolerate arimidex or the other AI's. - Pt. self discontinued arimidex and neurontin (hot flashes/neuropathy). - Continue zometa every 6 months with BMP for a total of 6 doses. First dose 2022. - #4 zometa as scheduled in January. - Follow up in 6 months. - Pt. aware to call office with any questions/concerns. The patient indicates understanding of these issues and agrees with the plan. All documentation from previous visit of 06/16/23-Dr. Moore/myself was copied and pasted, documentation has been reviewed and edited as necessary for today's visit. Ashley Berg APRN.JANINE documented in this encounter [facility] 08-01-2023 Miscellaneous Notes Please see my chart message. Thank you. Ashley Berg APRN.JANINE documented in this encounter [facility] 04-06-2023 Discharge summary Note Date/Time April 06, 2023 11:41pm [facility] Medical Records Department [address] [place] [address] Emergency Department Summary 04/06/23 MR#: [id number] Acct: [id number] Name: TRISH GILLILAND Rep #:[id number] : 1975 47 From: Lois Bowen PCP: Dr. Jeanine Caceres MD Status:REG ER Location: ED HPI HPI - GI History of Present Illness Chief Complaint: Abd Pain Informant: patient Narrative Narrative: Patient is a 47-year-old female with history of hyperlipidemia, breast cancer status postmastectomy and recent COVID infection (diagnosed 1 week ago.). She states her symptoms been relatively mild including a scratchy throat and a mild cough and congestion however 2 days ago when she thought she was getting better she then developed epigastric burning discomfort, cramping abdominal pain and then throughout the night had significant cramping and diarrhea. She took the day off the next day and continue to have cramping abdominal pain and diarrhea. She denies any black or blood in her stool. She did go to work today and has been taking Imodium as well as following a brat diet. She still cramping however she started noticed pain in her right lower quadrant and right flank after eating chicken and [employer] for dinner. She states her diarrhea is slightlyimproving. She currently only has mild symptoms. Because her has a history of appendicitis and knows that pain in the right lower quadrant can be associated this they came in for further evaluation. She denies any fever or chills. No urinary symptoms. Has been drinking lots of fluids. No other complaints or concerns at this time. [facility] Medical History Axillary adenopathy Bilateral breast cancer Breast mass Cancer Chest wall pain Leg cramps Non-smoker Redness of skin Restless legs Wears contact lenses Wears glasses Home Medications biotin 1 mg capsule 1 mg PO DAILY 02/16/22 [History Last Taken Unknown] calcium phosphate,dibasic 77 mg-vitamin D3 400 unit tablet 1 tab PO DAILY 02/16/22 [History Last Taken Unknown] cholecalciferol (vitamin D3) 25 mcg (1,000 unit) capsule 25 mcg PO DAILY 06/30/22 [History Last Taken Unknown] dicyclomine 20 mg tablet 20 mg PO TID PRN abdominal pain #20 tabs 04/06/23 [Rx Last Taken Unknown] ondansetron 4 mg disintegrating tablet 4 mg PO Q8H PRN PRN Nausea #10 tabs 04/06/23 [Rx Last Taken Unknown] Allergy/AdvReac Type Severity Reaction Status Date / Time paclitaxel [From Taxol] Allergy Anaphylaxis Verified 09/27/22 09:07 Penicillins Allergy Swelling Verified 09/27/22 09:07 Family History Grandmother Breast cancer Diabetes Uterine cancer Ovarian cancer Mother Hypertension Grandfather Diabetes Other Breast mass Surgical History History of bilateral mastectomy History of cholecystectomy Hx of tonsillectomy Hx of wisdom tooth extraction S/P bilateral oophorectomy Social History Smoking Status: Never smoker alcohol intake: never substance use type: does not use what type of physical activity do you participate in: none do you feel safe at home: Yes additional social history: - ROS ROS ED Constitutional Constitutional ED: Denies chills or fever(s) ENT ENT ED: Reports sore throat Cardiovascular Cardiovascular: Denies chest pain Respiratory/Chest Respiratory/Chest: Reports cough; Denies dyspnea Gastrointestinal Gastrointestinal: Reports abdominal pain and diarrhea; Denies nausea or vomiting Genitourinary Genitourinary ED: Denies dysuria or urinary frequency Musculoskeletal Musculoskeletal: Denies arthralgias or myalgias Integumentary Denies rash Neurologic Neurologic: Denies headache(s) EXAM Physical Exam Const Vital Signs: 04/06/23 21:28 Temperature 97.6 F L Temperature Source Temporal Pulse Rate 94 Respiratory Rate 15 Blood Pressure 155/75 H Blood Pressure Mean 101 Pulse Ox 98 Oxygen Delivery Method Room Air Positive well nourished and well developed General Appearance ED: well developed and NAD HEENT Reports moist mucous membranes Eyes PERRL and EOMs intact bilaterally Neck supple Resp normal respiratory effort and clear to auscultation bilaterally Cardio regular rate, regular rhythm and no murmurs GI non-tender and non-distended Auscultation: hyperactive bowel sounds Palpation: soft; Negative for guarding, rigid or mass Back/Spine no CVA tenderness Extremity full ROM Neuro Sensorium / Orientation: alert, oriented to person, oriented to place and oriented to time Motor Exam: general weakness Psych mental status grossly normal and thought process normal Skin no wounds Rashes: no rashes MDM MDM MDM Narrative Medical decision making narrative: Patient evaluated for crampy abdominal pain, diarrhea now right lower quadrant abdominal pain. This is in the setting of a recent COVID-19 infection. Differential includes viral enteritis, diverticulitis, appendicitis as well as renal colic. Patient does not have risk factors for C. difficile with no recentantibiotics and low suspicion for C. difficile as the cause of her symptoms. Clinically she does not appear dehydrated vital signs are only significant for mildly elevated blood pressure (155/75 upon arrival). CBC, CMP, lipase and urinalysis largely unremarkable. She has a very mild elevation of her ALT of 66which is nondiagnostic. She does not have pain in her right upper quadrant and I do not suspect acute gallbladder/liver pathology. Her urinalysis does show 0-5 white blood cells but no bacteria. We will send for culture but suspect this is reactive from her diarrhea. I do not think she requires antibiotics at this time. She does not have a leukocytosis, anemia or KORY. CT of the abdomen pelvis obtained which does not show any acute findings. Patient declines pain medicine in the ER. She is given dose of Bentyl prior to discharge. Suspect this is likely viral in nature. Patient is comfortable withthis. I will be given a prescription for Bentyl as well as Zofran for symptom control. Given return precautions. Patient and verbalized agreement understanding with this plan. Discharged home in stable condition. Lab Data Labs: Laboratory Results - last 24 hr 04/06/23 21:55 WBC 9.4 RBC 4.43 Hgb 12.8 Hct 39.3 MCV 88.7 MCH 28.9 MCHC 32.6 RDW Std Deviation 40.4 RDW Coeff of Sarai 12.3 Plt Count 274 MPV 8.5 Immature Gran % (Auto) 0.300 Neut % (Auto) 71.3 H Lymph % (Auto) 17.2 L Preston % (Auto) 6.9 Eos % (Auto) 4.1 Baso % (Auto) 0.2 Absolute Neuts (auto) 6.7 Absolute Lymphs (auto) 1.62 Nucleated RBC % 0 Sodium 140 Potassium 3.7 Chloride 106 Carbon Dioxide 27.0 Anion Gap 7 BUN 15 Creatinine 0.75 Estim Creat Clear Calc 89.21 Est GFR (MDRD) Af Amer 106 Est GFR (MDRD) Non-Af 87 BUN/Creatinine Ratio 20.0 Glucose 112 H Calcium 9.2 Total Bilirubin 0.30 AST 34 ALT 66 H Alkaline Phosphatase 66 Total Protein 7.2 Albumin 3.6 Globulin 3.6 Albumin/Globulin Ratio 1.0 Lipase 19 Urine Color Straw Urine Clarity Clear Urine pH 7.0 Ur Specific Eaton 1.005 Urine Protein Negative Urine Glucose (UA) Normal Urine Ketones Negative Urine Occult Blood Negative Urine Nitrite Negative Urine Bilirubin Negative Urine Urobilinogen Normal Ur Leukocyte Esterase 100 H Urine RBC 0 SEEN Urine WBC 0-5 SEEN Ur Squamous Epith Cells 0 SEEN Urine Bacteria 0 SEEN Urine Mucus 0 SEEN Radiography Diagnostic Testing: Clinical Impression(s) from Imaging Studies Abdomen/Pelvis CT 04/06/23 22:30 IMPRESSION: No acute findings in the abdomen or pelvis. Electronically Signed: Wilmer Pichardo MD at 23:23 EDT , Discharge Plan Triage Chief Complaint: Abd Pain ED Provider: Lois George Dx/Rx/DC Orders Clinical Impression: Diarrhea due to COVID-19, Abdominal pain Instructions: ED Diarrhea, Viral (Adult) Prescriptions: New dicyclomine 20 mg tablet 20 mg PO TID PRN (Reason: abdominal pain) Qty: 20 0RF ondansetron 4 mg tablet,disintegrating 4 mg PO Q8H PRN PRN (Reason: Nausea) Qty: 10 0RF No Action cholecalciferol (vitamin D3) 25 mcg (1,000 unit) capsule 25 mcg PO DAILY calcium phos,dibas-vitamin D3 77-400 mg-unit Tablet 1 tab PO DAILY biotin 1 mg Capsule 1 mg PO DAILY Primary Care Provider: Jeanine Caceres Referrals: Jeanine Caceres MD [Primary Care Provider] - Activity Restrictions/Additional Instructions: Your CT was negative for any signs of appendicitis, diverticulitis more severe cause of your symptoms. I suspect this is from your recent COVID-19 infection. Continue to hydrate as you have been and take the medicine prescribed as needed for symptoms. What to do if you have Problems For any increased pain, shortness of breath, bleeding, nausea or vomiting, chestpain, or any unexpected problems, contact your Primary Care Provider. Call [facility] ([phone]) or report to the closest Emergency Room. Call 911 if necessary. 04/06/232342 <Electronically signed by Lois George DO> Cosigner Signature (if applicable): CC: Dr. Jeanine Caceres MD ~ Signed [facility] Work Phone: [phone]) 217-992110-23-2023 Miscellaneous Notes* Telephone Encounter - Nuvia De La Rosa - 04/03/2023 2:30 PM EDT Pt scheduled as directed 1st attempt: MC sent * Telephone Encounter - Ashley Berg APRN.CNP - 04/03/2023 1:29 PM EDT Please see my chart message and re-schedule. Thank you. Ashley Berg APRN.JANINE * Telephone Encounter - Linette Baltazar LPN - 04/03/2023 8:10 AM EDT PSS- please contact patient to reschedule today's appointment. Linette Baltazar LPN [facility] Instructions* Patient Instructions* Marleen Sargent APRN.CNP - 03/31/2023 8:40 AM EDT covid test ordered You will be notified in 12-24 hours, [facility] until results are back Rest, increase water intake Motrin or Tylenol as needed for fever or pain. Salt water gargles, chloraseptic spray or lozenges as needed for sore throat. Warm beverages, honey. Nasal saline spray as needed Cool mist humidifier at night Tylenol (generic acetaminophen) 500 mg-2 tabs every 8 hrs. as needed for fever and aches Ibuprofen 600 mg (3-200mg tablets) every 6 hours -Sudafed (generic is fine), behind the counter, 2x30 mg tabs twice daily as needed for congestion -Mucinex (generic is fine) Guaifenesin 1200 mg twice daily to help with cough and to thin out mucus * Seek medical care immediately, call 911, go to ER if you have chest pain, difficulty breathing, shortness of breath, inability to swallow. documented in this encounter[facility] History of Present illness Narrative* Marleen Sargent APRN.CNP - 03/31/2023 8:32 AM EDT Subjective The history is provided by the patient. No bilingual speech language pathologist was used. HPI Trish Gilliland is a 47 year old female who presents today for CC of cough, congestion, sinus pressure/pain, and sore throat for 2 days. She has used otc cold medications with out relief. Known exposure to strep and covid. 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 HENT: Positive for congestion and sinus pain. Negative for ear pain and sore throat. Respiratory: Positive for cough. Negative for sputum production, shortness of breath and wheezing. Cardiovascular: Negative for chest pain. Gastrointestinal: Negative for abdominal pain, diarrhea, nausea and vomiting. Musculoskeletal: Negative for myalgias. Neurological: Positive for headaches. Objective Physical Exam Vitals and nursing note reviewed. HENT: Head: Normocephalic and atraumatic. Right Ear: Tympanic membrane, ear canal and external ear normal. Left Ear: Tympanic membrane, ear canal and external ear normal. Nose: Mucosal edema, congestion and rhinorrhea present. Right Sinus: Maxillary sinus tenderness present. No frontal sinus tenderness. Left Sinus: Maxillary sinus tenderness present. No frontal sinus tenderness. Mouth/Throat: Pharynx: Uvula midline. No oropharyngeal exudate or posterior oropharyngeal erythema. Cardiovascular: Rate and Rhythm: Normal rate and regular rhythm. Heart sounds: Normal heart sounds. Pulmonary: Effort: Pulmonary effort is normal. Breath sounds: Normal breath sounds. Lymphadenopathy: Head: Right side of head: No submental, submandibular or tonsillar adenopathy. Left side of head: No submental, submandibular or tonsillar adenopathy. Cervical: No cervical adenopathy. Skin: General: Skin is warm and dry. Neurological: Mental Status: She is alert. Psychiatric: Mood and Affect: Affect normal. ASSESSMENT/PLAN: 1. Sore throat - ICD9: 462, ICD10: J02.9 (primary diagnosis) - suspect viral - Group A strep molecular testing negative - STREP A MOLECULAR (POC) 2. URI with cough and congestion - ICD9: 465.9, ICD10: J06.9 - Discussed viral etiology and rationale for treatment. - Symptomatic treatment with prn analgesia - Supportive care with fluids and rest Home isolation Testing ordered Comfort measures discussed - see patient instructions. When to seek higher level of care Notified in 12-24 hours with results, available on [email or web address] prn - COVID NAAT, UPPER RESPIRATORY, ROUTINE Diagnosis and treatment plan were discussed and questions were answered to the patient's satisfaction. Pt acknowledged understanding of concepts and follow up plan. Specific signs and symptoms that would indicate the need for higher level of care were discussed indetail warranting prompt ER evaluation. Marleen Sargent APRN.JANINE documented in this encounter[facility] Miscellaneous Notes* Telephone Encounter - Pat Ashton Ma - 01/19/2023 2:46 PM EDT Appointment cancelled d/t physician in the OR. * Telephone Encounter - Alia Durán Ma - 01/18/2023 9:53 AM EDT Patient has appointment tomorrow with Dr. Becerra for left arm. Need more information. Shoulder?, elbow? Left a voicemail message for patient to call office. documented in this encounterSt. [facility] History of Present illness Narrative* Ashley Berg APRN.CNP - 11/30/2022 8:27 AM EDT Chief Complaint Patient presents with: Follow Up HPI: Trish Gilliland is a 47 year old female who presents here today for follow up breast cancer. Per Dr. Moore's previous note: H/o unremarkable past medical history. Patient appreciated a mass in the left breast starting about 8 months prior to presentation. She eventually developed pain and presented to the emergency room where she underwent a CTA of the chest on 06/14/2021. That study demonstrated no evidence of pulmonary embolism. There was an enhancing left axillary lymph node measuring 2.4 x 1.7 x 1.4 cm and there was also an ill-defined 2.4 x 2.3 x 2.1 cm soft tissue mass in the left breast. Smaller nodular density measuring 1 cm was observed in the upper medial right breast. There was evidence of old granulomatous disease without further comment. Patient underwent diagnostic mammogram on 06/15/2021 2 x 2.3 cm irregular mass in the anterior upper central portion of the left breast was observed. Biopsy was strongly recommended. There was also evidence of a 1.2 x 1 cm irregular nodule in the anterior subareolar region of the left breast for which biopsy was also recommended. The impression was bilateral breast masses but no comment was made onthe right breast. Correlation with ultrasound the left axillary region was also recommended. Ultrasound of the right and left breasts was performed on 06/16/2021. Within the right breast there was a 7 x 7 x 7 mm ill-defined hypoechoic nodule with shadowing and increased blood flow at the 2 o'clock position of the breast at 5 cm from the nipple. There was a similar-appearing nodular density measuring 4 x 4 x 4 mm also observed at the 1 o'clock position of thebreast 3 cm from the nipple. The impression was that of 2 adjacent hypoechoic irregular solid nodules at the 1 and 2 o'clock position of the breast as described. In the left breast there was a 2.7 x 3.5 x 2.3 cm irregular hypoechoic solid mass at the 12 o'clockposition of the breast 3 cm from the nipple. Increased vascularity was observed. Biopsy was recommended. There was also evidence of a prominent lymph node in the left axillary region measuring 1.3 x 0.9 x 0.4 cm. Biopsy was recommended. Underwent biopsy on 06/16/2021. Ultrasound-guided biopsy was obtained of the left axillary enlarged lymph node with clip marking. The left breast mass was also biopsied using a 14-gauge biopsy needle with several passes and clipping. The right breast was also imaged with ultrasound and 2 masses were identified. Under ultrasound guidance, both of these masses were biopsied and clips were placed intoeach of them. Pathology: -Core biopsy of the RIGHT breast mass at the 2 o'clock position demonstrated invasive ductal carcinoma, nuclear grade 1. -Core biopsy of the RIGHT breast mass at 2 o'clock position also revealed fragments of benign breast tissue with fibrosis and focal minimal intraductal hyperplasia without atypia negative for malignancy. -The LEFT breast core biopsy demonstrated invasive ductal carcinoma, nuclear grade 2 as well as ductal carcinoma in situ. -LEFT axillary lymph node core biopsy revealed metastatic carcinoma consistent with breast primary. The comment reads that the left breast core biopsy demonstrating ductal carcinoma revealed DCIS comprising about 70% of the total tumor volume with solid pattern and nuclear grade 2. Necrosis and calcifications were not observed. The entire specimen from the lymph node biopsy demonstrated tumor. No lymph node tissue was identified. It measured 1.2 cm in greatest length and was nuclear grade 2. The cancer specimen from the right breast was ER/CT positive (both greater than 95%, strong intensity) and HER2 negative, IHC 0 The left breast tumor was ER positive (greater than 95%, moderate intensity), CT positive (25%, lowto moderate intensity) and HER2 negative with IHC 0. MRI breasts 06/21/2021: Right breast: Breast tissue is scattered fibroglandular densities with minimal background enhancement. At the 2 o'clock position of the breast 4 cm behind the nipple and 5 cm above the nipple there were 2 irregular enhancing masses. The mass closest to the nipple measured 11 x 7 mm in diameter. Slightly above and more medial to this lesion was another smaller lesion measuring approximately 5 mm in diameter. Tissue clip artifact was noted medial to this superior lesion. Also of these lesions appeared to correspond to the ultrasound findings and were highly suspicious. Small axillary lymph nodes were noted none of which were pathologically enlarged. Left breast: There was a large enhancing mass at the 12 o'clock position 4.4 cm above the nipple and 4 cm behindthe nipple measuring 3.4 x 2.7 x 3.6 cm. This lesion corresponded to the mass shown on ultrasound. Enlarged lymph node in the left axillary region measured 2.6 x 2.2 x 2.3 cm highly suspicious for tumor involvement. No abnormality was visualized in the regions of the chest or liver. Impression overall was 2 enhancing lesions in the right breast and a large enhancing lesion in the left breast corresponding to theultrasound findings. Enlarged left axillary lymph node which was highly suspicious for tumor involvement. She was having pain in the tumor of the left breast. Menses were irregular. Two children. Two boys ages 21 and 18. . works at [employer]. Underwent CT scan of chest, abdomen pelvis and was found to have pathologic left axillary lymphadenopathy. Breast masses were observed in each breast with the left being much larger than the right. There were nonspecific mildly prominent right hilar lymph node sequela of old granulomatous exposure and scattered less than 5 mm pulmonary nodules. Previous therapy: 1) AC followed by T. Had severe infusion reaction with the first 3 doses of Taxol. Following that therapy was changed to Abraxane. RADIATION 03/15/22 - 04/25/22 Bilateral chest wall/IM/SC/axilla Underwent bilateral mastectomy with right sentinel lymph node biopsy, left sentinel lymph node biopsy with frozen section, left axillary completion dissection and right Mediport removal on 01/26/2022. Previous therapy: Aromasin began September 2022 Letrozole began end of 2021 Both stopped d/t hand pain/foot pain. Current therapy: 1) Arimidex 2) Zometa every 6 months. First dose 07/15/22. S/p oophorectomy by Dr. Agosto. Lupron discontinued. Pt. continues to have intermitt L UE pain. Wearing sleeve. Working FT. Appetite:Ok. Energy level:Not much. I'm not getting much sleep. Working FT. Denies fevers or recent illness. Resp:denies cough or sob Cardiac:denies chest pain/palpitations GI:denies abd pain, n/v, moving bowels regularly :denies dysuria/hematuria Extrem:L UE pain Endo:+hot flashes Maybe 7-8 in a day. About 4 during the night. Neuro:tingling to feet Skin:denies rashes Heme:denies bleeding The ROS is otherwise negative. Past medical history, appointments, medications, allergies reviewed. No changes. EXAM: BP 115/69 Pulse 90 Temp 36.8 C (98.3 F) (Temporal) Wt 104.8 kg (231 lb) LMP 10/11/2021 SpO2 100% BMI 35.83 kg/m APPEARANCE Well appearing, alert, in no acute distress, well-hydrated, well nourished. HEART RRR with normal S1 and S2, no murmurs LUNG clear to auscultation BREAST FEMALE b/l mastectomy scars, no nodule/skin changes LYMPH NODES No cervical lymphadenopathy, No supraclavicular lymphadenopathy, and No axillary lymphadenopathy. ABDOMEN bowel sounds normoactive, soft, non-tender EXTREMITIES No edema to BLE, Sleeve to LUE NEURO Awake, alert and oriented x 3, Normal gait, and No involuntary motions. SKIN Skin color, texture, turgor normal, no suspicious rashes or lesions ASSESSMENT/PLAN: 1. 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, estrogen receptor positive (HCC) - ICD9: 174.8, V86.0, ICD10: C50.811, C50.812, Z17.0 (primary diagnosis) cT1c cN0 ER/CT positive (both greater than 95%, strong intensity) and HER2 negative, IHC 0 stage 1Ainfiltrating ductal carcinoma of the RIGHT breast. cT2 cN1 ER positive (greater than 95%, moderate intensity), CT positive (25%, low to moderate intensity), HER2 negative with IHC 0 stage IIB infiltrating ductal carcinoma of the LEFT breast. ypT2 (3.3 cm; grade 2; +LVI) pN1a (two of 15 LNs +; largest 2.8 cm without extranodal extension) ER/CT positive, HER2 1+ (enriched) stage IIB invasive ductal carcinoma of the LEFT breast. ypT1c (1.1 cm; grade 2; LVI not determined) pN1mi (2 of 5 LNs; largest 1 mm deposit) ER/CT positive, HER2 0 stage IB invasive ductal carcinoma of the RIGHT breast. Genetic testing negative. Ki-67 proliferative index: 1 % of invasive carcinoma cells with nuclear positivity - No concerning findings on exam. - Letrozole/aromasin discontinued d/t hand/foot pain. - Tolerating arimidex well currently. - Continue zometa every 6 months with BMP for a total of 6 doses. First dose 2022. Second dose scheduled in December. - Continue arimidex. - Re-start neurontin at hs for hot flashes and L arm pain. - Consult Ortho L arm pain. - Follow up in 4 months. - Pt. aware to call office with any questions/concerns. The patient indicates understanding of these issues and agrees with the plan. All documentation from previous visit of 04/19/22-Dr. Moore/09/05/22-Dr. Moore/myself was copied and pasted, documentation has been reviewed and edited as necessary for today's visit. Ashley Berg APRN.JANINE documented in this encounterSt. [facility] [facility]04[facility] Miscellaneous Notes* Telephone Encounter - Corrine Blackmon RN - 09/29/2022 3:24 PM EDT [facility] FOLLOW-UP NOTE Patient identified by name and date of . YES Spoke to patient Summary: (Reason for follow-up) Follow-up Concerns: (New Barriers to care) Per Dr. Moore, patient is to hold exemestane for 1 month then switch to anastrozole. Patient instructed to call or send a MC message if she starts to have side effects after starting. Also discussed starting aerobic exercise to help alleviate the symptoms she has been experiencing. Patient stated un derstanding of discussed information. Care Coordination Plan: patient instructed to send a MC message or call the office if she starts toexperience side effect after starting anastrozole. Corrine Blackmon RN September 29, 2022 * Telephone Encounter - Corrine Blackmon RN - 09/26/2022 12:37 PM EDT Spoke to patient. Patient stated she has been experiencing worsening knee pain since going on the exemestane. Patient rates the pain at 6-7/10 constant aching, stabbing, pulsating pain in both knees, R>L. Patient denies swelling or redness in her knees or lower extremities. Patient stated her hands are stiff and swollen and it hurts to make a fist. Patient advised to hold exemestane until this nurse speaks to Dr. Moore. Corrine Blackmon RN documented in this encounterSt. Mary'[facility] [facility]03-27-2023 History of Present illness Narrative* Liat Vidales RN - 09/05/2022 11:23 AM EDT CASE [id number] Genetic and inflammatory biomarkers in neuropathic pain secondary to chemotherapy (Genie-B) -a study in patients undergoing treatment for breast cancer. Informed Consent signed on: 08/25/2021 STUDY ID #: [id number] Patient presents today for her Visit 7. Met with patient for the above mentioned trial. Patient hascompleted all of her questionaires for Visit 7. Patients Labs were collected and sent via [employer]. All of the patient's questions were answered. Patient is overall doing well - patient has started to develop some neuropathy - has her holding the femara for three weeks to see if that is the cause. However, the patient feels it might be carpal tunnel from returning to work. Completed study expectations: 09/05/2022 Vital signs, allergies and concomitant medications reviewed. ECOG/KPS =90. PE performed by Radha Mckeon M.D. on 2021. Patient's current therapy plan is AMB AC DOSE DENSE - DOXORUBICIN 60 CYCCLOPHOSPHAMIDE 600 D1-Q14D THEN WEEKLY PACLITAXEL X12. Taxol Protocol Start Date: 09/30 labs and visit 10/01 V2/Treatment Cycle1 of NEW TREATMENT 10/22 V3 Reduced Treatment at Abraxane 200 mg meter squared and administer once weekly for 5 weeks. Vitals: 09/05/2022 Weight 106.8 kg (235 lb 8 oz) BSA 0 BMI 0 Temp 36.9 C (98.4 F) Pulse 98 BP 122/79 Pulse Ox 98 Resp 16 Concomitant medication review: Yes Current Outpatient Medications on File Prior to Visit Medication Sig Start/Stop Comment fTake 1 tablet by mouth once daily. 08/25/2021 / 11/15/2021 Take 1 tablet by mouth daily at bedtime. for 4 nights beginning the night of chemotherapy treatment. 08/04/2021 / 11/26/2021 Take 1 capsule by mouth once daily. 07/28/2021 / 11/26/2021 lApply to port site 60 minutes prior to accessing. 07/09/2021/ 11/26/2021 Take 1 tablet by mouth every 6 hours as needed. FOR NAUSEA 07/04/2021 / 11/26/2021 Take 1 tablet by mouth twice daily with meals. on the second, third and fourth day after each chemotherapy treatment. 07/04/2021 / 11/26/2021 Tylenol 500mg Take 500 mg (1-2 tablets) by mouth every 6-8 hours as needed. (Does not take per patient) calcium carbonate/vitamin D3 (TOÑITO-600 WITH VITAMIN D ORAL) Take 1 tablet by mouth once daily. ibuprofen (MOTRIN) 200 mg tablet Take 400 mg by mouth every 8 hours as needed. 09/08/2021 Take 1 tablet the evening prior to the morning of each chemotherapy treatment 10/21/2021 / 11/26/2021 Take 1 capsule by mouth three times daily for 90 days 10/13/2021 / 11/26/2021 Biotin Take 1 capsule by mouth daily Phentermine HCL 37.5mg capsule Take 1/2 capsule by mouth daily 07/15/2022 Letrozole (FEMARA) 2.5 mg tablet Take 1 tablet by mouth once daily 05/09/2023 On HOLD since 08/31/2022 Current Facility-Administered Medications on File Prior to Visit Medication perflutren lipid microspheres 1.3 mL in NaCl (PF) 0.9% 10 mL injection (DEFINITY) sodium chloride 0.9 % (flush) 10 mL (BD POSIFLUSH) Pertinent denials: 1. Inability or unwillingness to provide Informed Consent - denies, admits to 2. Patients receiving other adjuvant chemotherapies that may have neuropathy as side effects. Examples include: Cisplatin, FOLFOX, Vincristine, Vinblastine, Vinorelbine, Eribulin, Ixabepilone. - denies 3. Opioid use (more than 3 doses in the 7 days prior to enrollment). If opioid use is initiated during the study it will be recorded and the patient may continue participation.- denies 4. Daily use of NSAIDs for the 4 weeks prior to study enrollment. Intermittent use of no more than 5 doses per week for pain such as headache or muscle ache is allowed. Low dose aspirin (81 mg QD) is allowed and should be continued as indicated.- denies 5. Chronic steroid therapy (eg. Greater than a physiological replacement dose of prednisone 10mg QD) for the management of inflammatory conditions (eg. Arthritis, asthma or IBD). Intranasal steroids are acceptable.- denies 6. Febrile illness within 2 weeks prior to enrollment - denies 7. Patients with neuropathic pain syndrome (eg. Diabetic neuropathy, post-herpetic neuralgia, complex regional pain syndrome) diagnosed prior to study entry on review of the patient s medical record or self-reported by the patient.- denies 8. Any other diagnosis, both physical or psychological, or physical exam finding that in the opinion of the traffic investigator precludes participation.- denies Patient meets all Criteria for Study Participation: Yes Study includes the following: Allowing a research blood draw. Does Patient Consent to Optional Studies? -Your sample(s) and/or data may be stored and used for research about other health problems. Yes -Your samples and/or data, without identifying information, may be shared with other investigators/groups and/or [facility] repositories. Yes -Please check below to indicate your preferences regarding the optional agreement to receive e-mailcorrespondence for questionnaire completion prior to study visits. Yes The patient knows to RTC as instructed by physician. Patient understands to call the office sooner if needed and has my contact information for any additional questions regarding the study. DREW Stephen, RN Clinical Research Nurse [phone] documented in this encounterSt. Mary'[facility] [facility]03-21-2023 Miscellaneous Notes* Telephone Encounter - Kait Serra - 08/30/2022 3:37 PM EDT Per routing note request, spoke with patient and scheduled clinical trial labs immediately before office visit on 09/05/22. Kait Serra documented in this encounterSt. Mary'[facility] [place] [facility]03-21-2023 Miscellaneous Notes* Telephone Encounter - Alice Pagan Pss - 08/30/2022 3:15 PM EDT Completed * Telephone Encounter - Kait Serra - 08/30/2022 2:09 PM EDT LM for patient to return call to schedule. When she calls, please schedule Survivorship appointmentwith Ashley, document and close this note. Kait Serra * Telephone Encounter - Corrine Blackmon RN - 08/30/2022 10:58 AM EDT Patient was scheduled to see Ashley in May but cancelled the appointment and never rescheduled.Please call patient to schedule a follow-up OV/SCP visit (60 min appointment). Thank you. Corrine Blackmon RN documented in this encounterSt. Mary'[facility] [facility]03-15-2023 Miscellaneous Notes* Telephone Encounter - Corrine Blackmon RN - 08/24/2022 4:16 PM EDT Patient informed of Dr. Moore's response, stated understanding. Patient will send a MC message or call back with an update in 2-3 weeks. Corrine Blackmon RN * Telephone Encounter - Rachid Moore DO - 08/24/2022 3:59 PM EDT Sounds like she has underlying carpal tunnel syndrome. The lectures all can certainly cause musculoskeletal pain like this and I am not familiar with the side effects of the Adipex so I would advise she hold the letrozole to see if symptoms subside within 2 to 3 weeks. Ask her to let us know in that timeframe. Rachid Moore DO * Telephone Encounter - Corrine Blackmon RN - 08/24/2022 3:28 PM EDT Called patient back. Patient stated the last couple of weeks she has been experiencing tingling, pressure, and tightness in her fingers, hands, and toes. Patient stated her hands and feet feel swollen and it is difficult to make a fist. Hands are not visibly swollen. Patient stated during the night, she will wake up with pins and needles in her hands, R>L. Patient will have to shake her hands and move them around to get the sensation to subside. 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 Patient also has c/o intermittent 11/19 very achy pain in her shoulders, wrists, and fingers that started a couple of weeks ago. Patient stated the pain reminds her of the pain she experienced when she was on chemo. Patient will take ibuprofen 400 mg a couple times a day, pending the severity ofpain, which helps alleviate the pain. Patient started phentermine a few weeks prior to symptom onset. Patient is wondering if this medication is causing the symptoms or if it could be the letrozole. Patient aware an update on symptoms will be provided to Dr. Moore and our office will call her backwith further instructions. Corrine Blackmon RN * Telephone Encounter - Alice Pagan Pss - 08/24/2022 3:13 PM EDT Patient returned call. Corrine went to voicemail. Patient states she is off of work and is available rest of day. * Telephone Encounter - Corrine Blackmon RN - 08/24/2022 1:39 PM EDT Called patient, no answer. Left a message requesting a call back from patient. Corrine Blackmon RN documented in this encounterSt. Mary'[facility] [facility]03-15-2023 Miscellaneous Notes* Telephone Encounter - Liat Vidales RN - 08/24/2022 10:37 AM EDT Left patient a voicemail in regards to follow-up for last visit for Genie B Liat Vidales RN documented in this encounterSt. 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 Informed Consent signed on: 08/25/2021 STUDY ID #: [id number] Patient presents today for her Visit 6. Met with patient for the above mentioned trial. Patient hascompleted all of her questionaires for Visit 5. Patients Labs were collected and sent via [employer]. All of the patient's questions were answered. Patient is doing well and feels post surgery she is doing quite well. She had surgery 01/26. Patient has swelling in left axillary area and Masci ordered Ddim er and xray. Patient to report to ER based on results and repeat CT when she comes for her next visit. Vital signs, allergies and concomitant medications reviewed. ECOG/KPS =90. PE performed by Radha Mckeon M.D. on June. Patient's current therapy plan is AMB AC DOSE DENSE - DOXORUBICIN 60 CYCCLOPHOSPHAMIDE 600 D1-Q14D THEN WEEKLY PACLITAXEL X12. Taxol Protocol Start Date: 09/30 labs and visit 10/01 V2/Treatment Cycle1 of NEW TREATMENT 10/22 V3 Reduced Treatment at Abraxane 200 mg meter squared and administer once weekly for 5 weeks. Vitals: 07/15/2022 Weight 112.5 kg (248 lb) Height 171 cm (5' 7.32) BSA 2.31 BMI 38.47 Temp 36.4 ?C (97.6 ?F) Pulse 98 Resp 18 BP 124/66 Concomitant medication review: Yes and unchanged Current Outpatient Medications on File Prior to Visit Medication Sig Start/Stop Comment furosemide (LASIX) 20 mg tablet Take 1 tablet by mouth once daily. 08/25/2021 / 11/15/2021 OLANZapine (ZYPREXA) 10 mg tablet Take 1 tablet by mouth daily at bedtime. for 4 nights beginning the night of chemotherapy treatment. 08/04/2021 / 11/26/2021 omeprazole (PRILOSEC) 40 mg capsule Take 1 capsule by mouth once daily. 07/28/2021 / 11/26/2021 lidocaine-prilocaine (EMLA) 2.5-2.5 % cream Apply to port site 60 minutes prior to accessing. 07/09/2021/ 11/26/2021 promethazine (PHENERGAN) 25 mg tablet Take 1 tablet by mouth every 6 hours as needed. FOR NAUSEA 07/04/2021 / 11/26/2021 dexAMETHasone (DECADRON) 4 mg tablet Take 1 tablet by mouth twice daily with meals. on the second, third and fourth day after each chemotherapy treatment. 07/04/2021 / 11/26/2021 Tylenol 500mg Take 500 mg (1-2 tablets) by mouth every 6-8 hours as needed. calcium carbonate/vitamin D3 (TOÑITO-600 WITH VITAMIN D ORAL) Take 1 tablet by mouth once daily. ibuprofen (MOTRIN) 200 mg tablet Take 400 mg by mouth every 8 hours as needed. 09/08/2021 Prednisone (Deltasone) 20 mg Take 1 tablet the evening prior to the morning of each chemotherapy treatment 10/21/2021 / 11/26/2021 Gabapentin (Neurontin) 300 mg Take 1 capsule by mouth three times daily for 90 days 10/13/2021 / 11/26/2021 Biotin Take 1 capsule by mouth daily Phentermine HCL 37.5mg capsule Take 1/2 capsule by mouth daily 07/15/2022 Current Facility-Administered Medications on File Prior to Visit Medication perflutren lipid microspheres 1.3 mL in NaCl (PF) 0.9% 10 mL injection (DEFINITY) sodium chloride 0.9 % (flush) 10 mL (BD POSIFLUSH) Pertinent denials: 1. Inability or unwillingness to provide Informed Consent - denies, admits to 2. Patients receiving other adjuvant chemotherapies that may have neuropathy as side effects. Examples include: Cisplatin, FOLFOX, Vincristine, Vinblastine, Vinorelbine, Eribulin, Ixabepilone. - denies 3. Opioid use (more than 3 doses in the 7 days prior to enrollment). If opioid use is initiated during the study it will be recorded and the patient may continue participation.- denies 4. Daily use of NSAIDs for the 4 weeks prior to study enrollment. Intermittent use of no more than 5 doses per week for pain such as headache or muscle ache is allowed. Low dose aspirin (81 mg QD) is allowed and should be continued as indicated.- denies 5. Chronic steroid therapy (eg. Greater than a physiological replacement dose of prednisone 10mg QD) for the management of inflammatory conditions (eg. Arthritis, asthma or IBD). Intranasal steroids are acceptable.- denies 6. Febrile illness within 2 weeks prior to enrollment - denies 7. Patients with neuropathic pain syndrome (eg. Diabetic neuropathy, post-herpetic neuralgia, complex regional pain syndrome) diagnosed prior to study entry on review of the patient s medical record or self-reported by the patient.- denies 8. Any other diagnosis, both physical or psychological, or physical exam finding that in the opinion of the traffic investigator precludes participation.- denies Patient meets all Criteria for Study Participation: Yes Study includes the following: Allowing a research blood draw. Does Patient Consent to Optional Studies? -Your sample(s) and/or data may be stored and used for research about other health problems. Yes -Your samples and/or data, without identifying information, may be shared with other investigators/groups and/or [facility] repositories. Yes -Please check below to indicate your preferences regarding the optional agreement to receive e-mailcorrespondence for questionnaire completion prior to study visits. Yes The patient knows to RTC in 3 months. The plan is to have the patient to complete the Visit 6 questionnaires, labs, and treatment visit requirements at her next OV. Patient understands to call the office sooner if needed and has my contact information for any additional questions regarding the study. DREW Stephen, RN Clinical Research Nurse [phone] documented in this encounterSt. Mary'[facility] [facility]01-16-2023 Miscellaneous Notes* Telephone Encounter - Ninfa Aldana LPN - 06/27/2022 2:23 PM EST Echo results faxed as directed. Ninfa Aldana LPN * Telephone Encounter - Christal Luo - 06/27/2022 2:08 PM EST Patient is requesting recent [facility] Dr Agosto documented in this encounterSt. Mary'[facility] [facility]01-09-2023 Miscellaneous Notes* Telephone Encounter - Leticia Birmingham Pss - 06/20/2022 4:31 PM EST I called and spoke to patient and scheduled her for this 06/23/22 at 8:00 am for the echo, she confirmed this date, time and location. Leticia Luo * Telephone Encounter - Rachid Moore DO - 06/20/2022 1:31 PM EST Order filed. Rachid Moore DO * Telephone Encounter - Leticia Luo - 06/20/2022 9:58 AM EST , If you want us to call patient to schedule her for an echocardiogram, then please place an order. Thank you, Leticia Luo documented in this encounterSt. Mary'[facility] [facility]12-12-2022 History of Present illness Narrative* Radha Mckeon MD, MD - 05/23/2022 9:18 AM EST AMBULATORY TELEPHONE VISIT Trish Jacquie Gilliland has consented to this telephone encounter. Persons Present: patient Chief Complaint/Reason: four week follow-up after radiation treatment. HPI: Synchronous bilateral breast cancer s/p neoadjuvant chemotherapy with AC followed by Taxol. s/p bilateral mastectomy and left axillary node dissection and right sentinel node biopsy on 01/26/22. Pathological stage IIA, ypT2 ypN1a, left breast cancer and pathological stage IA, ypT1c ypN1mi rightbreast cancer. s/p radiation treatment finished on 04/25/22. She is doing well without any specific new complaints. She denies any significant pain over the chest wall area. She had dry desquamation over the chest wall area but it's healing well now. Data Reviewed: None. 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 Plan: She will continue skin care until it heals completely. She is on Femara and she is regularly followed with medical oncology. I will see her as needed. Total Time Spent: 5 minutes Radha Mckeon MD. documented in this encounterSt. Mary'[facility]12-08-2022 Miscellaneous Notes* Telephone Encounter - Rachid Moore DO - 05/19/2022 2:42 PM EST I called her and spoke about the potential for addition of abemaciclib. Her Ki- 67 was low so technically she did not have criteria for drug but because of her younger age and lymph node involvement, I thought it reasonable to consider if insurance would cover. After discussing potential side effects she endorsed that she is not a pill person. And she prefers not to go on any other medication right now particularly if there is not strong data indicating it would improve her chance of disease-free and/or overall survival. Rachid Moore DO documented in this encounterSt. [facility] [facility] History of Present illness Narrative* Stella Perkins RT(R) - 05/04/2022 11:30 AM EST Radiology Service Progress Note PATIENT NAME: Trish Gilliland DATE OF SERVICE: May 04, 2022 TIME: 11:35 AM PATIENT IDENTITY VERIFICATION COMPLETED USING TWO (2) IDENTIFIERS: Name and Date of confirmedby patient verbally. FALL SCREENING: Has the patient had 2 falls in the last year or 1 fall with injury or currently using an Ambulatory Assistive Device (Walker, Cane, Wheelchair, Crutches, etc.)? No PATIENT GENDER DATA: Female. status: : No status: NO. PATIENT RELEVANT IMPLANT DATA REVIEWED: Not Applicable RADIOLOGY DEPARTMENT: Bone Density PERIPHERAL IV DATA: Not applicable SIGNED BY: RT Errol(R) May 04, 2022 11:35 AM documented in this encounterSt. Mary'[facility] [facility]11-17-2022 NoteHNO ID: [id number] Author: Shania Trinh PT Service: ? Author Type: Physical Therapist Type: Progress Notes Filed: 04/28/2022 12:31 PM Note Text: 04/28/2022 [facility] PHYSICAL THERAPY DISCONTINUANCE OF CARE Plan of Care Period: Start of Care Date: 02/23/22 Last Visit Date: 02/23/2022 Therapy Program: Patient did not return for follow up care as planned. Please refer to last visit note for interventions provided for this episode of care. Assessment: Unable to formally assess goal achievement. Reason for Discontinuation of Care: Patient has not returned to therapy or scheduled additional follow-up appointments. Shania Trinh [facility]11-14-2022 Nurse Note* Chery Arce RN - 04/25/2022 8:51 AM EST AMBULATORY PATIENT EDUCATION NOTE TOPIC: SURVIVAL SKILLS: Symptom Management READINESS TO LEARN COGNITIVE ABILITY: Alert and oriented MOTIVATION TO LEARN: Eager Interested FAMILY SUPPORT: Unable to assess - Family not present INSTRUCTION PROVIDED TO: Patient PATIENT LEARNS BEST BY: Multiple Methods FACTORS AFFECTING LEARNING: None PHYSICAL LIMITATIONS AFFECTING LEARNING: None LEARNING RESPONSE DIAGNOSIS: C50.811 METHOD OF INSTRUCTION: Teach Back skin care Individual instruction Written instruction - handouts Verbal instruction PATIENT / FAMILY RESPONSE: Verbalizes understanding of: SYMPTOM MANAGEMENT- Correct actions to take to manage symptoms associated with his/her disease/illness FOLLOW-UP PLAN: Patient instructed to call with any further issues Reinforce - Repeat previous content Contact information given. SUPPLEMENTAL MATERIAL: D/C sheet REFERRAL (RECOMMENDATION): None Written discharge instructions given and reviewed with patient. Patient verbalizes understanding. Encouraged to call with any questions or concerns. Instruction for 4 week phone follow up appointmentgiven by Dr. Mckeon. Electronically Signed By: Chery Arce RN In Department: RADIATION ONCOLOGY Time spent on patient education: 10 minutes. documented in this encounterSt. Mary'[facility] [facility]11-14-2022 History of Present illness Narrative* Radha Mckeon MD, MD - 04/25/2022 12:00 AM EST TRISH GILLILAND [id number] : 1975 04/25/2022 [facility] Department of Radiation Oncology RADIATION ONCOLOGY - COMPLETION NOTE DATE OF SIMULATION: 03/01/22, 04/08/22 DATES OF TREATMENT: 03/15/22 - 04/25/22 UNIT: [id number]_[id number] AREA TREATED: Bilateral chest wall/IM/SC/axilla DISEASE: Synchronous bilateral breast cancer s/p neoadjuvant chemotherapy with AC followed by Taxol. s/p bilateral mastectomy and left axillary node dissection and right sentinel node biopsy on 01/26/22. Pathological stage IIA, ypT2 ypN1a, left breast cancer and pathological stage IA, ypT1c ypN1mi right breast cancer. DELIVERED DOSE: 6000 cGy in 30 fractions. (5000 cGy in 25 fractions treating to the bilateral chestwall/IM/SC/axilla to the 100% isodose line with 6/10/15 MV and 10 segmented boyer followed by 1000cGy in 5 fractions to the bilateral mastectomy scars with 9 MeV electron and two boyer.) ELAPSED TIME: 41 days. TOLERANCE/ RESPONSE: She has mild pruritus in the chest. Moderate erythema of the chest qureshi. REMARKS: She tolerated radiation treatment well. Four week follow-up with [place]. Staff Physician RADHA MCKEON M.D. / 21:32 PM Electronically Signed cc: Jeanine Caceres MD ([facility]) [address] [place] [address] Rachid Mendez [address] [place] [address] [address] [id number] documented in this encounterSt. Mary'[facility] [facility]11-09-2022 History of Present illness Narrative* Radha Mckeon MD, - 04/20/2022 8:54 AM EST Radiation Oncology - On Treatment Review (OTR) Note PATIENT NAME: Trish Gilliland PATIENT DIAGNOSIS: Synchronous bilateral breast cancer s/p neoadjuvant chemotherapy with AC followed by Taxol. s/p bilateral mastectomy and left axillary node dissection and right sentinel node biopsy on 01/26/22. Pathological stage IIA, ypT2 ypN1a, left breast cancer and pathological stage IA, ypT1c [id number] breast cancer. COURSE: post-operative AREA TREATED: Bilateral chest wall/SC/axilla/Left IM CURRENT DOSE: 5400 cGy in 27 fx PLANNED DOSE: 6000 cGy in 30 fx SUBJECTIVE: She has mild pruritus in the chest. EXAM: KPS: 90 General Appearance: Alert and oriented. No acute distress. Moderate erythema of the chest qureshi. IMAGING/LAB RESULTS: None Treatment chart checked: Yes Patient treatment site reviewed and verified:Yes Port films reviewed and current:Yes Medications started: OTC hydrocortisone cream as needed. ASSESSMENT/PLAN: Clinically stable. Toxicity within expected parameters. Continue radiation treatment as planned. Radha Mckeon MD documented in this encounterSt. Mary'[facility] [facility]11-09-2022 Nurse Note* Chery Arce RN - 04/20/2022 8:50 AM EST Radiation Therapy - Nursing Note (OTV) PATIENT NAME: Trish Gilliland PATIENT April 20, [address]22 [facility]AC[facility]LOCATION: [facility] NURSING NOTE TYPE: BREAST Subjective Data No c/o Additional Data Do you want to see a Retail Grocer? No Status: Patient states there is no possibility she is at this time. Stress Scale: On a scale of 0 to 10, what number best describes how much distress you have experienced in the past week?(0 being no distress and 10 being extreme distress) 4 Social work notified: Pt denied need to see criminal justice social worker at this time. Nursing Assessment Fatigue: moderate; causing difficulty performing some activities Appetite: good Nutritional Intake: Regular oral intake. Weight Gain/Loss: No Ambulatory weight history: Last 6 Encounter Wt Readings: Date: Wt: 04/20/2022 112 kg (247 lb) 04/20/2022 112 kg (247 lb) 04/19/2022 112 kg (247 lb) 04/13/2022 111.4 kg (245 lb 8 oz) 03/30/2022 110.9 kg (244 lb 6.4 oz) 03/23/2022 110.9 kg (244 lb 8 oz) Nausea:None Vomiting: None Bowel Function: normal bowel movements Erythema/Hyperpigmentation:mild Desquamation:none Rash:none Skin Care: Aquaphor Skin Sensation: moderate itching Focused Assessment BREAST: Lymphedema Assessment: Is the patient noting any swelling? No. SIGNED by: Chery Arce RN * Chery Arce RN - 04/20/2022 8:46 AM EST Intake information documented in the prior visit with Hem/onc for injection today. documented in this encounterSt. Mary[facility] [facility]11-09-2022 History of Present illness Narrative* Salina Marcum LPN - 04/20/2022 8:37 AM EST Pt here for injection of Lupron. Given IM in right buttocks. Pt tolerated well. Salina Marcum LPN documented in this encounterSt. Mary'[facility] [facility]11-08-2022 Miscellaneous Notes* Telephone Encounter - Nuvia Sanders - 04/19/2022 2:25 PM ESTSummary: AVS 04/19 Check out comments: Tomorrow is last Lupron injection. Getting ovaries out 05/[address] [facility]. OV with Ashley for SCP week of 05/30. documented in this encounterSt. Mary'[facility] [facility]11-04-2022 Miscellaneous Notes* Telephone Encounter - Kait Serra - 04/15/2022 8:41 AM EDT Spoke with patient, advising below, and rescheduled as directed. Kait Serra * Telephone Encounter - Rachid Moore DO - 04/15/2022 8:00 AM EDT Actually, she doesn't need to start Zometa until about 6 months after starting Lupron injections. So can get bone density when able and we can reschedule Zometa to begin in July. Rachid Moore DO * Telephone Encounter - Kait Serra - 04/14/2022 8:38 AM EDT Patient's bone density had to be rescheduled and is now scheduled for after patient's first dose ofZometa. Patient is concerned as she thought she needed the bone density completed prior to her Zometa. Please advise if patient needs bone density PRIOR to Zometa infusion. Kait Ponce documented in this encounterSt. Mary'[facility] [facility]11-02-2022 History of Present illness Narrative* Radha Mckeon MD, MD - 04/13/2022 8:52 AM EDT Radiation Oncology - On Treatment Review (OTR) Note PATIENT NAME: Trish Gilliland PATIENT DIAGNOSIS: Synchronous bilateral breast cancer s/p neoadjuvant chemotherapy with AC followed by Taxol. s/p bilateral mastectomy and left axillary node dissection and right sentinel node biopsy on 01/26/22. Pathological stage IIA, ypT2 ypN1a, left breast cancer and pathological stage IA, ypT1c [id number] breast cancer. COURSE: post-operative AREA TREATED: Bilateral chest wall/SC/axilla/Left IM CURRENT DOSE: 4400 cGy in 22 fx PLANNED DOSE: 6000 cGy in 30 fx SUBJECTIVE: She has occasional right shoulder pain. EXAM: KPS: 90 General Appearance: Alert and oriented. No acute distress. Moderate erythema of the chest qureshi. IMAGING/LAB RESULTS: None Treatment chart checked: Yes Patient treatment site reviewed and verified:Yes Port films reviewed and current:Yes Medications started: Ibuprofen as needed. ASSESSMENT/PLAN: Clinically stable. Toxicity within expected parameters. Continue radiation treatment as planned. Radha Mckeon MD documented in this encounterSt. Mary'[facility] [facility]11-02-2022 Nurse Note* Chery rAce RN - 04/13/2022 8:44 AM EDT Radiation Therapy - Nursing Note (OTV) PATIENT NAME: Trish Gilliland PATIENT April 13, [address]22 [facility]: [facility] [place] NOTE TYPE: BREAST Subjective Datasee pain assessmnet Additional Data Do you want to see a Retail Grocer? No Status: Patient states there is no possibility she is at this time. Stress Scale: On a scale of 0 to 10, what number best describes how much distress you have experienced in the past week?(0 being no distress and 10 being extreme distress) 4 Social work notified: no Nursing Assessment Fatigue: moderate; causing difficulty performing some activities Appetite: good Nutritional Intake: Regular oral intake. Weight Gain/Loss: No Ambulatory weight history: Last 6 Encounter Wt Readings: Date: Wt: 04/13/2022 111.4 kg (245 lb 8 oz) 03/30/2022 110.9 kg (244 lb 6.4 oz) 03/23/2022 110.9 kg (244 lb 8 oz) 03/02/2022 109.1 kg (240 lb 9.6 oz) 02/23/2022 108.9 kg (240 lb) 02/18/2022 108.4 kg (239 lb) Nausea:None Vomiting: None Bowel Function: normal bowel movements Erythema/Hyperpigmentation:mild Desquamation:none Rash:none Skin Care: Aquaphor Skin Sensation: Within Normal Limits Focused Assessment BREAST: Lymphedema Assessment: Is the patient noting any swelling? No. SIGNED by: Chery Arce RN documented in this encounterSt. Mary'[facility] [facility]10-31-2022 Miscellaneous Notes* Telephone Encounter - Kait Serra - 04/11/2022 2:30 PM EDT Patient presented at front office attendant and rescheduled. Kait Serra * Telephone Encounter - Kait Serra - 04/09/2022 2:42 PM EDT LM for patient to return call to rescheduled Zometa & Lupron from 04/20 to 04/25. When patient calls, please reschedule, document and close this note. Kait Serra documented in this encounterSt. Mary'[facility]10-28-2022 History of Present illness Narrative* Radha Mckeon MD, - 04/08/2022 12:00 AM EDT TRISH GILLILAND [id number] 04/08/2022 [facility] Department of Radiation Oncology RADIATION ONCOLOGY ELECTRON SIMULATION NOTE SITE:Right and Left scar DIAGNOSIS: Synchronous bilateral breast cancer s/p neoadjuvant chemotherapy with AC followed by Taxol. s/p bilateral mastectomy and left axillary node dissection and right sentinel node biopsy on 01/26/22. Pathological stage IIA, ypT2 ypN1a, left breast cancer and pathological stage IA, ypT1c [id number] breast cancer. FIELD NUMBER(S): B5 AND D5 REASON FOR SIMULATION: Mastectomy scar Boost IMMOBILIZATION DEVICE: ABC device and AIO orfit system FIELD ARRANGEMENT: en face BLOCKING AND OIL TRANSPORT DRIVER: A custom cerrobend block is necessary to shape the radiation beam and protect surrounding anatomy. VERIFICATION SIMULATION OF ELECTRON FIELD PER PLAN: no COMMENTS: Setup of the boost field was performed on the treatment machine. Templates were created for the construction of the blocks as well as daily reproducibility of the treatment field. Electronically Signed RADHA MCKEON M.D. /[id number] 2:59 PM documented in this encounterSt. Mary'[facility]10[facility]26-2022 History of Present illness Narrative* Radha Mckeon MD, - 04/06/2022 8:53 AM EDT Radiation Oncology - On Treatment Review (OTR) Note PATIENT NAME: Trish Gilliland PATIENT DIAGNOSIS: Synchronous bilateral breast cancer s/p neoadjuvant chemotherapy with AC followed by Taxol. s/p bilateral mastectomy and left axillary node dissection and right sentinel node biopsy on 01/26/22. Pathological stage IIA, ypT2 ypN1a, left breast cancer and pathological stage IA, ypT1c [id number] breast cancer. COURSE: post-operative AREA TREATED: Bilateral chest wall/SC/axilla/Left IM CURRENT DOSE: 3400 cGy in 17 fx PLANNED DOSE: 6000 cGy in 30 fx SUBJECTIVE: She is doing well without any specific new complaints. EXAM: KPS: 100 General Appearance: Alert and oriented. No acute distress. Mild erythema of the chest qureshi. IMAGING/LAB RESULTS: None Treatment chart checked: Yes Patient treatment site reviewed and verified:Yes Port films reviewed and current:Yes Medications started: None ASSESSMENT/PLAN: Clinically stable. Toxicity within expected parameters. Continue radiation treatment as planned. Radha Mckeon MD documented in this encounterSt. Mary'[facility]10-26-[facility] Nurse Note* Sarah Ramirez RN - 04/06/2022 8:38 AM EDT Radiation Therapy - Nursing Note (OTV) PATIENT NAME: Trish Gilliland PATIENT April 06, [address]22 [facility]LOC[facility]: [facility] NURSING NOTE TYPE: BREAST Subjective Data c/o dizziness relates to neck ? issues Additional Data Do you want to see a Retail Grocer? No Status: Patient states there is no possibility she is at this time. Stress Scale: On a scale of 0 to 10, what number best describes how much distress you have experienced in the past week?(0 being no distress and 10 being extreme distress) 4 Social work notified: Pt denied need to see criminal justice social worker at this time. Nursing Assessment Fatigue: moderate; causing difficulty performing some activities Appetite: good Nutritional Intake: Regular oral intake. Weight Gain/Loss: No Ambulatory weight history: Last 6 Encounter Wt Readings: Date: Wt: 03/30/2022 110.9 kg (244 lb 6.4 oz) 03/23/2022 110.9 kg (244 lb 8 oz) 03/02/2022 109.1 kg (240 lb 9.6 oz) 02/23/2022 108.9 kg (240 lb) 02/18/2022 108.4 kg (239 lb) 02/16/2022 108.6 kg (239 lb 8 oz) Nausea:None Nausea does not interfere with the ability to eat Vomiting: None Bowel Function: normal bowel movements Erythema/Hyperpigmentation:mild Desquamation:none Rash:none Skin Care: Aquaphor Skin Sensation: mild itching Focused Assessment BREAST: Lymphedema Assessment: Is the patient noting any swelling? No. SIGNED by: Sarah Ramirez RN documented in this encounterSt. Mary'[facility]10[facility] History of Present illness Narrative* Radha Mckeon MD, MD - 03/30/2022 8:44 AM EDT Radiation Oncology - On Treatment Review (OTR) Note PATIENT NAME: Trish Gilliland PATIENT DIAGNOSIS: Synchronous bilateral breast cancer s/p neoadjuvant chemotherapy with AC followed by Taxol. s/p bilateral mastectomy and left axillary node dissection and right sentinel node biopsy on 01/26/22. Pathological stage IIA, ypT2 ypN1a, left breast cancer and pathological stage IA, ypT1c [id number] breast cancer. COURSE: post-operative AREA TREATED: Bilateral chest wall/SC/axilla/Left IM CURRENT DOSE: 2400 cGy in 12 fx PLANNED DOSE: 6000 cGy in 30 fx SUBJECTIVE: She is doing well without any specific new complaints. EXAM: KPS: 100 General Appearance: Alert and oriented. No acute distress. Mild erythema of the chest qureshi. IMAGING/LAB RESULTS: None Treatment chart checked: Yes Patient treatment site reviewed and verified:Yes Port films reviewed and current:Yes Medications started: None ASSESSMENT/PLAN: Clinically stable. Toxicity within expected parameters. Continue radiation treatment as planned. Radha Mckeon MD documented in this encounterSt. Mary'[facility]10-[facility]-20[facility] Nurse Note* Chery Arce RN - 03/30/2022 8:42 AM EDT Radiation Therapy - Nursing Note (OTV) PATIENT NAME: Trish Gilliland PATIENT March 30, 2022 [facility]: [facility] NURSING NOTE TYPE: BREAST Subjective Data See pain assessment Additional Data Do you want to see a Retail Grocer? No Status: Patient states there is no possibility she is at this time. Stress Scale: On a scale of 0 to 10, what number best describes how much distress you have experienced in the past week?(0 being no distress and 10 being extreme distress) 4 Social work notified: Pt denied need to see criminal justice social worker at this time. Nursing Assessment Fatigue: increased fatigue over baseline but not altering normal activities Appetite: good Nutritional Intake: Regular oral intake. Weight Gain/Loss: No Ambulatory weight history: Last 6 Encounter Wt Readings: Date: Wt: 03/30/2022 110.9 kg (244 lb 6.4 oz) 03/23/2022 110.9 kg (244 lb 8 oz) 03/02/2022 109.1 kg (240 lb 9.6 oz) 02/23/2022 108.9 kg (240 lb) 02/18/2022 108.4 kg (239 lb) 02/16/2022 108.6 kg (239 lb 8 oz) Nausea:None Vomiting: None Bowel Function: normal bowel movements Erythema/Hyperpigmentation:mild Desquamation:none Rash:none Skin Care: Aquaphor Skin Sensation: Within Normal Limits Focused Assessment BREAST: Lymphedema Assessment: Is the patient noting any swelling? No. SIGNED by: Chery Arce RN documented in this encounterSt. Mary'[facility] [facility]10-[facility]-2022 Miscellaneous Notes* Telephone Encounter - Yaritza Luo - 03/28/2022 2:27 PM EDT Scheduled. * Telephone Encounter - Kait Serra - 03/23/2022 3:03 PM EDT Please file orders for Zometa so it can be scheduled as directed in the AVS. Kait Serra documented in this encounterSt. Mary'[facility]10[facility] History of Present illness Narrative* Salina Marcum LPN - 03/23/2022 2:47 PM EDT Pt here for injection of Lupron. Given IM in Left buttocks. Pt tolerated well. For all other information regarding today, see today's OV note with Dr Friedman. Salina Marcum LPN documented in this encounterSt. Mary'[facility]10-12-2022 Instructions* Patient Instructions* Stefan Friedman MD - 03/23/2022 2:10 PM EDT BONE MINERAL DENSITY PATIENT INSTRUCTIONS Bone mineral density testing measures the amount of calcium in certain parts of your bones. This information determines how strong your bones are. The test is used to detect osteoporosis, a disease in which the bone's mineral content and density are low, increasing a person's risk of fractures. Thelumbar spine (lower back) and the hip are the skeletal sites usually examined. For the test, remember that: 1. You cannot take this test if you are . 2. Eat a normal diet on the day of the test. 3. Take your medications as you normally would. 4. DO NOT take calcium supplements (such as Tums) for 24 hours before the test. 5. On the day of the test, leave valuables (jewelry or credit cards) at home. 6. The test should be performed prior to oral, rectal or IV contrast studies, or at least 7 days after any of these studies. For the test, you may be asked to wear a hospital gown. You will lie on your back, on a padded table, in a comfortable position. Generally, you can resume your usual activities immediately. documented in this encounterSt. Mary'[facility]10-12-2022 History of Present illness Narrative* Stefan Friedman MD - 03/23/2022 2:01 PM EDT Oncologic problem(s): 1) cT1c cN0 ER/CT positive (both greater than 95%, strong intensity) and HER2 negative, IHC 0 [id number] infiltrating ductal carcinoma of the RIGHT breast. 2) cT2 cN1 ER positive (greater than 95%, moderate intensity), CT positive (25%, low to moderate intensity) and HER2 negative with IHC 0 stage IIB infiltrating ductal carcinoma of the LEFT breast. Per Dr. Moore's last office visit on 02/16/2022 HPI: The patient is a 46-year-old female with an unremarkable past medical history. Patient appreciated a mass in the left breast starting about 8 months prior to presentation. She eventually developed pain and presented to the emergency room where she underwent a CTA of the chest on 06/14/2021. That study demonstrated no evidence of pulmonary embolism. There was an enhancing left axillary lymph node measuring 2.4 x 1.7 x 1.4 cm and there was also an ill-defined 2.4 x 2.3 x 2.1 cm soft tissue mass in the left breast. Smaller nodular density measuring 1 cm was observed in the upper medial right breast. There was evidence of old granulomatous disease without further comment. Patient underwent diagnostic mammogram on 06/15/2021 2 x 2.3 cm irregular mass in the anterior upper central portion of the left breast was observed. Biopsy was strongly recommended. There was also evidence of a 1.2 x 1 cm irregular nodule in the anterior subareolar region of the left breast for which biopsy was also recommended. The impression was bilateral breast masses but no comment was made onthe right breast. Correlation with ultrasound the left axillary region was also recommended. Ultrasound of the right and left breasts was performed on 06/16/2021. Within the right breast there was a 7 x 7 x 7 mm ill-defined hypoechoic nodule with shadowing and increased blood flow at the 2 o'clock position of the breast at 5 cm from the nipple. There was a similar-appearing nodular density measuring 4 x 4 x 4 mm also observed at the 1 o'clock position of thebreast 3 cm from the nipple. The impression was that of 2 adjacent hypoechoic irregular solid nodules at the 1 and 2 o'clock position of the breast as described. In the left breast there was a 2.7 x 3.5 x 2.3 cm irregular hypoechoic solid mass at the 12 o'clockposition of the breast 3 cm from the nipple. Increased vascularity was observed. Biopsy was recommended. There was also evidence of a prominent lymph node in the left axillary region measuring 1.3 x 0.9 x 0.4 cm. Biopsy was recommended. Underwent biopsy on 06/16/2021. Ultrasound-guided biopsy was obtained of the left axillary enlarged lymph node with clip marking. The left breast mass was also biopsied using a 14-gauge biopsy needle with several passes and clipping. The right breast was also imaged with ultrasound and 2 masses were identified. Under ultrasound guidance, both of these masses were biopsied and clips were placed intoeach of them. Pathology: -Core biopsy of the RIGHT breast mass at the 2 o'clock position demonstrated invasive ductal carcinoma, nuclear grade 1. -Core biopsy of the RIGHT breast mass at 2 o'clock position also revealed fragments of benign breast tissue with fibrosis and focal minimal intraductal hyperplasia without atypia negative for malignancy. -The LEFT breast core biopsy demonstrated invasive ductal carcinoma, nuclear grade 2 as well as ductal carcinoma in situ. -LEFT axillary lymph node core biopsy revealed metastatic carcinoma consistent with breast primary. The comment reads that the left breast core biopsy demonstrating ductal carcinoma revealed DCIS comprising about 70% of the total tumor volume with solid pattern and nuclear grade 2. Necrosis and calcifications were not observed. The entire specimen from the lymph node biopsy demonstrated tumor. No lymph node tissue was identified. It measured 1.2 cm in greatest length and was nuclear grade 2. The cancer specimen from the right breast was ER/CT positive (both greater than 95%, strong intensity) and HER2 negative, IHC 0 The left breast tumor was ER positive (greater than 95%, moderate intensity), CT positive (25%, lowto moderate intensity) and HER2 negative with IHC 0. MRI breasts 06/21/2021: Right breast: Breast tissue is scattered fibroglandular densities with minimal background enhancement. At the 2 o'clock position of the breast 4 cm behind the nipple and 5 cm above the nipple there were 2 irregular enhancing masses. The mass closest to the nipple measured 11 x 7 mm in diameter. Slightly above and more medial to this lesion was another smaller lesion measuring approximately 5 mm in diameter. Tissue clip artifact was noted medial to this superior lesion. Also of these lesions appeared to correspond to the ultrasound findings and were highly suspicious. Small axillary lymph nodes were noted none of which were pathologically enlarged. Left breast: There was a large enhancing mass at the 12 o'clock position 4.4 cm above the nipple and 4 cm behindthe nipple measuring 3.4 x 2.7 x 3.6 cm. This lesion corresponded to the mass shown on ultrasound. Enlarged lymph node in the left axillary region measured 2.6 x 2.2 x 2.3 cm highly suspicious for tumor involvement. No abnormality was visualized in the regions of the chest or liver. Impression overall was 2 enhancing lesions in the right breast and a large enhancing lesion in the left breast corresponding to theultrasound findings. Enlarged left axillary lymph node which was highly suspicious for tumor involvement. She was having pain in the tumor of the left breast. Menses were irregular. Two children. Two boys ages 21 and 18. . works at [employer]. Underwent CT scan of chest, abdomen pelvis and was found to have pathologic left axillary lymphadenopathy. Breast masses were observed in each breast with the left being much larger than the right. There were nonspecific mildly prominent right hilar lymph node sequela of old granulomatous exposure and scattered less than 5 mm pulmonary nodules. Previous therapy: 1) AC followed by [facility] Had severe infusion reaction with the first 3 doses of Taxol. Following that therapy was changed to Abraxane. Current therapy: Zoladex Presents for ongoing oncologic management. Interim history: Underwent bilateral mastectomy with right sentinel lymph node biopsy, left sentinel lymph node biopsy with frozen section, left axillary completion dissection and right Mediport removal on 01/26/2022. Since surgery she has been experiencing dyspnea and a sensation of stopping breathing when she goesinto a semirecumbent position and starts to fall asleep. She does not have any lower extremity swelling or exertional chest pain. No leg pain. She completed adjuvant radiation therapy this week. PMH, medications and allergies personally reviewed by me today. Any changes documented in appropriate section. ROS: Constitutional: Denies episodes of fever and night sweats. Neuro: Denies GAMEZ, vertigo, dizziness and imbalance. HEENT: No recent change in voice, vision or hearing. CVS: Denies exertional chest pain. GI: Denies dysgeusia. Denies symptoms of stomatitis. Denies dysphagia and odynophagia. Denies reflux, n/v, change in bowel habits and abdominal pain. : Denies dysuria or gross hematuria. No symptoms of bladder outlet obstruction. Endo: Denies hot flashes. Denies polyuria and polydipsia. Denies heat and cold intolerance. Derm: Denies rash. Denies jaundice and diffuse pruritis. Heme: Denies unusual bleeding and unexplained bruising. Psych: Normal mood. Family history: 1) MGM--breast cancer and cervix cancer. Diagnosed with breast cancer age 48. Had Radical mastectomy 1978. 5 of 22 nodes positive. of breast cancer age 52. Had hysterectomy 1962 for scc cervix. PHYSICAL EXAM: Well-appearing and in no acute distress. BP 108/69 Pulse 86 Temp (Src) 97.3 (Temporal) Wt 244 lb 8 oz (110.9kg) SpO2 97% LMP 10/11/2021 EYES: Sclerae are anicteric bilaterally. LYMPHATIC: There is no palpable cervical or supraclavicular adenopathy. RESPIRATORY: Inspiratory breath sounds are of normal intensity in all boyer. No rales, wheezes or rhonchi. Expiratory phase is normal. CARDIOVASCULAR: Rhythm is regular. 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 There is a transverse incision across the chest wall well-healing with no sign of infection. Mild fluid collection along the lateral left side. No chest wall tenderness per se. ABDOMEN: The abdomen is nondistended. Extremities: No swelling or edema. SKIN: No jaundice or rash. No petechiae. 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 No focal motor weakness. LABS: Component Latest Ref Rng & Units 03/21/2022 WBC 3.70 - 11.00 k/uL 4.76 RBC 3.90 - 5.20 m/uL 4.39 Hemoglobin 11.5 - 15.5 g/dL 12.8 Hematocrit 36.0 - 46.0 % 38.2 MCV 80.0 - 100.0 fL 87.0 MCH 26.0 - 34.0 pg 29.2 MCHC 30.5 - 36.0 g/dL 33.5 RDW-CV 11.5 - 15.0 % 12.2 Platelet Count 150 - 400 k/uL 303 MPV 9.0 - 12.7 fL 8.8 (L) Neut% % 55.7 Abs Neut (ANC) 1.45 - 7.50 k/uL 2.65 Lymph% % 26.9 Abs Lymph 1.00 - 4.00 k/uL 1.28 Preston% % 11.1 Abs Preston <0.87 k/uL 0.53 Eosin% % 5.5 Abs Eosin <0.46 k/uL 0.26 Baso% % 0.6 Abs Baso <0.11 k/uL 0.03 Immature Gran % % 0.2 IMMATURE GRANS (ABS) <0.10 k/uL <0.03 NRBC /100 WBC 0.0 Absolute nRBC <0.01 k/uL <0.01 DTYPE Auto Component Latest Ref Rng & Units 03/21/2022 Glucose 74 - 99 mg/dL 100 (H) BUN 7 - 21 mg/dL 12 Creatinine 0.58 - 0.96 mg/dL 0.63 Sodium 136 - 144 mmol/L 140 Potassium 3.7 - 5.1 mmol/L 3.9 Chloride 97 - 105 mmol/L 104 CO2 22 - 30 mmol/L 28 Anion Gap 9 - 18 mmol/L 8 (L) Calcium 8.5 - 10.2 mg/dL 9.7 eGFR >=60 mL/min/1.73m 110 Albumin 3.9 - 4.9 g/dL 4.1 Bilirubin, Total 0.2 - 1.3 mg/dL 0.3 Bilirubin, Conjug <0.2 mg/dL <0.2 Alkaline Phosphatase 34 - 123 U/L 84 AST 13 - 35 U/L 17 ALT 7 - 38 U/L 18 Protein, Total 6.3 - 8.0 g/dL 6.6 ASSESSMENT/PLAN: (C50.412, Z17.0) Malignant neoplasm of upper-outer quadrant of left breast in female, estrogen receptor positive (HCC) (primary encounter diagnosis) Assessment: -cT1c cN0 ER/CT positive (both greater than 95%, strong intensity) and HER2 negative, IHC 0 stage 1A infiltrating ductal carcinoma of the RIGHT breast. -cT2 cN1 ER positive (greater than 95%, moderate intensity), CT positive (25%, low to moderate intensity), HER2 negative with IHC 0 stage IIB infiltrating ductal carcinoma of the LEFT breast. -ypT2 (3.3 cm; grade 2; +LVI) pN1a (two of 15 LNs +; larges 2.8 cm without extranodal extension) ER/CT positive, HER2 1+ (enriched) stage IIB invasive ductal carcinoma of the LEFT breast. -ypT1c (1.1 cm; grade 2; LVI not determined) pN1mi (2 of 5 LNs; largest 1 mm deposit) ER/CT positive, HER2 0 stage IB invasive ductal carcinoma of the RIGHT breast. -Genetic testing negative. -Discussed plan going forward. No clear indication for further chemotherapy. She requires ovarian suppression along with aromatase inhibitor therapy. Also potential addition of abemaciclib depending on Ki67 testing (result pending). Plan: -Continue Lupron injections monthly. -Add letrozole 2.5 mg once daily once she's finish with XRT; and if abemaciclib is indicated. -Check bone density and start zoledronic acid 4mg IV every 6 months on her next visit. -Schedule to see dentist CLIFF Portions of this documentation were copied and pasted from previous office visit notes in order to provide a cohesive continuity of the history. The note has been reviewed and edited and updated as necessary. Stefan Friedman MD Cc: MD Garry Jacome MD DaeSung Lee, MD documented in this encounterSt. [facility] [facility] History of Present illness Narrative* Radha Mckeon MD, MD - 03/23/2022 8:42 AM EDT Radiation Oncology - On Treatment Review (OTR) Note PATIENT NAME: Trish Gilliland PATIENT DIAGNOSIS: Synchronous bilateral breast cancer s/p neoadjuvant chemotherapy with AC followed by Taxol. s/p bilateral mastectomy and left axillary node dissection and right sentinel node biopsy on 01/26/22. Pathological stage IIA, ypT2 ypN1a, left breast cancer and pathological stage IA, ypT1c [id number] breast cancer. COURSE: post-operative AREA TREATED: Bilateral chest wall/SC/axilla/Left IM CURRENT DOSE: 1400 cGy in 7 fx PLANNED DOSE: 6000 cGy in 30 fx SUBJECTIVE: She has mild tightness over the chest wall skin. EXAM: KPS: 100 General Appearance: Alert and oriented. No acute distress. Radiation dermatitis: No IMAGING/LAB RESULTS: None Treatment chart checked: Yes Patient treatment site reviewed and verified:Yes Port films reviewed and current:Yes Medications started: None ASSESSMENT/PLAN: Clinically stable. Toxicity within expected parameters. Continue radiation treatment as planned. Radha Mckeon MD documented in this encounterSt. Mary[facility] [facility]10[facility] Nurse Note* Sarah Ramirez RN - 03/23/2022 8:39 AM EDT Radiation Therapy - Nursing Note (OTV) PATIENT NAME: Trish Gilliland PATIENT March 23, 2022 [facility] FACILITY[facility]LOCATION: [facility] [place] NOTE TYPE: BREAST Subjective Data some tightness thru chest area particularly after doing exercises Additional Data Do you want to see a Retail Grocer? No Status: Patient states there is no possibility she is at this time. Stress Scale: On a scale of 0 to 10, what number best describes how much distress you have experienced in the past week?(0 being no distress and 10 being extreme distress) 3 Social work notified: Pt denied need to see criminal justice social worker at this time. Nursing Assessment Fatigue: increased fatigue over baseline but not altering normal activities Appetite: good Nutritional Intake: Regular oral intake. Weight Gain/Loss: No Ambulatory weight history: Last 6 Encounter Wt Readings: Date: Wt: 03/02/2022 109.1 kg (240 lb 9.6 oz) 02/23/2022 108.9 kg (240 lb) 02/18/2022 108.4 kg (239 lb) 02/16/2022 108.6 kg (239 lb 8 oz) 02/04/2022 108 kg (238 lb) 01/19/2022 113.7 kg (250 lb 9.6 oz) Nausea:None Vomiting: None Bowel Function: normal bowel movements Erythema/Hyperpigmentation:none Desquamation:none Rash:none Skin Care: Aquaphor Skin Sensation: Within Normal Limits Focused Assessment BREAST: Lymphedema Assessment: Is the patient noting any swelling? No. SIGNED by: Sarah Ramirez RN documented in this encounterSt. Mary[facility] [place] [facility]10[facility] History of Present illness Narrative* Radha Mckeon MD, - 03/16/2022 9:00 AM EDT Radiation Oncology - On Treatment Review (OTR) Note PATIENT NAME: Trish Gilliland PATIENT DIAGNOSIS: Synchronous bilateral breast cancer s/p neoadjuvant chemotherapy with AC followed by Taxol. s/p bilateral mastectomy and left axillary node dissection and right sentinel node biopsy on 01/26/22. Pathological stage IIA, ypT2 ypN1a, left breast cancer and pathological stage IA, ypT1c [id number] breast cancer. COURSE: post-operative AREA TREATED: Bilateral chest wall/SC/axilla/Left IM CURRENT DOSE: 400 cGy in 2 fx PLANNED DOSE: 6000 cGy in 30 fx SUBJECTIVE: She is doing well without any specific new complaints. EXAM: KPS: 100 General Appearance: Alert and oriented. No acute distress. Radiation dermatitis: No IMAGING/LAB RESULTS: None Treatment chart checked: Yes Patient treatment site reviewed and verified:Yes Port films reviewed and current:Yes Medications started: None ASSESSMENT/PLAN: Clinically stable. No signs of toxicity. Continue radiation treatment as planned. Radha Mckeon MD documented in this encounterSt. [facility] [place] [facility]10-[facility] Nurse Note* Aishwarya Luke RN - 03/16/2022 8:43 AM EDT Radiation Therapy - Nursing Note (OTV) PATIENT NAME: Trish Gilliland PATIENT March 16, 2022 [facility] FACILITY/LOCATION: [place] NURSING NOTE TYPE: BREAST Subjective Data No Compaints Additional Data Do you want to see a Retail Grocer? No Status: Post-menopausal. Stress Scale: On a scale of 0 to 10, what number best describes how much distress you have experienced in the past week?(0 being no distress and 10 being extreme distress) 1 Social work notified: no Nursing Assessment Fatigue: increased fatigue over baseline but not altering normal activities Appetite: good Nutritional Intake: Regular oral intake. Weight Gain/Loss: No Ambulatory weight history: Last 6 Encounter Wt Readings: Date: Wt: 03/02/2022 109.1 kg (240 lb 9.6 oz) 02/23/2022 108.9 kg (240 lb) 02/18/2022 108.4 kg (239 lb) 02/16/2022 108.6 kg (239 lb 8 oz) 02/04/2022 108 kg (238 lb) 01/19/2022 113.7 kg (250 lb 9.6 oz) Nausea:Nausea does not interfere with the ability to eat Vomiting: None Bowel Function: normal bowel movements Erythema/Hyperpigmentation:none Desquamation:none Rash:none Skin Care: Aquaphor Skin Sensation: Within Normal Limits Focused Assessment BREAST: Lymphedema Assessment: Is the patient noting any swelling? No. SIGNED by: Aishwarya Luke RN documented in this encounterSt. Mary'[facility] [place] [facility]10-04-2022 Miscellaneous Notes* Telephone Encounter - Salina Marcum LPN - 03/15/2022 1:21 PM EDT Printed. Will cancel the CT. [employer] message sent to pt. Salina Marcum LPN * Telephone Encounter - Rachid Moore DO - 03/15/2022 12:29 PM EDT Yes, can cancel CT 03/21. Please print report of CTA chest she had done at the ER. Rachid Moore DO * Telephone Encounter - Salina Marcum LPN - 03/15/2022 8:45 AM EDT Pt is scheduled to have a chest CTA on 03/21 however she states she had a CTA chest in the ER on 02/16/22 to r/o PE. She states she was told she would not need the CT chest on 03/21. She is asking if she can cancel the CT here. Salina Marcum LPN documented in this encounterSt. Mary'[facility] [facility]09-28-2022 Miscellaneous Notes* Telephone Encounter - SENG Tobin - 03/09/2022 2:51 PM EDT SW received short-term disability paperwork for pt. Paperwork completed, reviewed and signed by physician and faxed to the number provided. Pt asked for a copy of the completed forms, SW called and informed her they are available for pickup. Originals sent to internal scanning. MYRA Tobin documented in this encounterSt. Mary'[facility] [facility]09-21-2022 Miscellaneous Notes* Telephone Encounter - SENG Tobin - 03/02/2022 12:20 PM EDT SW attempted to contact pt to complete a psychosocial assessment due to pt beginning a new treatment regimen. Pt was unavailable. SW left a voicemail with SW's direct call-back number. MYRA Tobin documented in this encounterSt. Mary'[facility] [facility]09-21-2022 Miscellaneous Notes* Telephone Encounter - Sarah Ramirez RN - 03/02/2022 10:53 AM EDT Spoke with pt. She states she gets allergies this time of year. Additionally, her had same sx this past Monday and went to urgent care, was negative for covid. she may go to urgent care herself but wanted to verify no interactions with radiation. Pt was informed that it would be ok to take what she normally takes for allergies and or rx meds such as antibiotic.She states understanding. * Telephone Encounter - Daniela Luo - 03/02/2022 10:13 AM EDT Patient called, she is to start radiation on Monday but she has a cold and want to know what medication she can take for sinus headache and sore throat. Can be reached at [phone] Thank you Daniela Luo documented in this encounterSt. Mary'[facility] [facility]09-20-2022 Nurse Note* Chery Arce RN - 03/01/2022 1:08 PM EDT Radiation Therapy - Patient Education Note PATIENT NAME: Trish Gilliland PATIENT March 01, 2022 [facility] FACILITY[facility]LOCATION: [facility] READINESS TO LEARN Cognitive Ability: Alert and oriented Motivation to learn: Eager Interested Family Support: Unable to assess - Family not present Instruction provide to: Patient Patient learns best by: Multiple Methods Factors effecting learning: None Physical limitations effecting learning: None LEARNING RESPONSE Diagnosis: Pt simulated today for radiation therapy to bilateral breast. Education Topic/Teaching Points: Radiation therapy, Side effects, and OTV: Method of instruction: Teach Back skin care Individual instruction Written instruction - handouts Verbal instruction Patient /Family response: Patient verbalized understanding of radiation treatments, side effects, OTV, and transportation. Follow-up plan: Patient instructed to call with any further issues Contact information given. Supplemental material: Informational handouts on Department phone list, [facility], and [facility] instructions, XRT sheet and Aquaphor handout. Referral (recommendation): None, Pt denied need for social work, van service, and industrial health engineer. Was approved? unknown Signed by: Chery Arce RN documented in this encounterSt. Mary'[facility]09-20-2022 History of Present illness Narrative* Radha Mckeon MD, - 03/01/2022 12:00 AM EDT TRISH GILLILAND [id number] 03/01/2022 [facility] Department of Radiation Oncology [facility] RADIATION ONCOLOGY SIMULATION NOTE DATE OF SIMULATION: 03/01/2022 MACHINE: Tucker Blair Definition CT Simulator Diagnosis: Synchronous bilateral breast cancer s/p neoadjuvant chemotherapy with AC followed by Taxol. s/p bilateral mastectomy and left axillary node dissection and right sentinel node biopsy on 01/26/22. Pathological stage IIA, ypT2 ypN1a, left breast cancer and pathological stage IA, ypT1c [id number] breast cancer. AREA:Right and left chest wall and regional lymphatics. PATIENT POSITION: Supine. CONTRAST: None PROTOCOL: None BLOCKING: Custom blocking to be determined at treatment planning. FIXATION DEVICE: In order to achieve accurate and reproducible treatments, the patient is to be immobilized with orfit board system and abc breath hold device. PROCEDURE: A time-out was conducted and recorded by the therapist. Patient was simulated on the CT scanner for external beam radiation therapy. Treatment site was marked by the simulation therapist. ASSESSMENT/PLAN: Patient tolerated simulation procedure well. Treatments will be initiated after treatment planning. The patient is scheduled for a verification simulation on the treatment machine toensure proper set-up and field arrangement is correct prior to the first treatment of primary and boost boyer if applicable. Electronically Signed Radha Mckeon M.D./dariela :20 PM documented in this encounterSt. Mary'[facility]09-20-2022 History of Present illness Narrative* Radha Mckeon MD, MD - 03/01/2022 12:00 AM EDT TRISH GILLILAND [id number] 03/01/2022 [facility] Department of Radiation Oncology Treatment Planning Note For reasons stated in the consult note, Trish Gilliland is a candidate for radiation therapy. Based onreview and interpretation of the relevant diagnostic studies together with the exam findings, Trish Gilliland was simulated on 03/01/2022 at which time the target volume and/or requisite boyer were delineated, as indicated in the simulation note, to be treated according to the prescription. CT images were taken during deep inspiration breath hold using a breath hold device. The CT image set was reviewed to assess respiratory reproducibility. The breath hold device allowed for design of patient specific target delineation for the purposes of cardiac sparing. The treatment target and organs at risk were contoured on the simulation scan. Special consideration to these and other structures was given in light of the potential for increased toxicities due to treatment of multiple sites concurrently. After reviewing multiple treatment plans with dosimetry, the best plan was approved to deliver the prescribed course of radiation to the target area using 3D planning to allow for the best isodose distribution, treating to the 100% isodose line with 6/10/15 MV and 10 segmented boyer. Custom MLC wedges asym jaws were the treatment device(s) used to shape/modify the beams. Limiting dose to normal tissue was confirmed upon review of the calculated dose volume histogram. A completed summary of this plan dated 03/10/22 incorporated herein by reference includes dose, beamarrangements, energy, blocking, isodose distribution, and/or ports and DVH. Electronically Signed Radha Mckeon M.D. 21:13 PM documented in this encounterSt. Mary'S [facility] [facility]09-14-2022 NoteHNO ID: [id number] Author: Shania Trinh PT Service: ? Author Type: Physical Therapist Type: Progress Notes Filed: 02/23/2022 6:17 PM Note Text: Episode Visit Count: 1 Therapist That Will Accept/Oversee The Plan Of Care: Gayathri Start of Care Date: 02/23/22 Onset Date: 01/26/22 Patient Identified by Name and Date of : Yes REHABILITATION AND SPORTS THERAPY PHYSICAL THERAPY EVALUATION PLAN OF CARE: Assessment: Trish Gilliland presents with chief complaint of limited ROM B UE L > R that interferes with reaching overhead . She presents with impairments in independence in exercise, posture, range of motion, and soft tissue healing. PROMIS? (Patient-Reported Outcomes Measurement Information System) scores were reviewed and all domains identified as within normal limits. Prognosis for therapy is Good due to: current objective clinical presentation;good overall health status . Pt presents with decreased ROM, tightness in L axilla, possible cording and difficulty with reaching overhead following B mastectomy w ALND. She will benefit from skilled therapy services to meet the goals established for this plan of care as noted below. Goals for Episode of Care: created on 02/23/22 through 05/24/22 Patient able to verbalize skin care and lymphedema risk reductions Patient will demonstrate proper positioning of limb Patient/family independent with home exercise program including self MLD, desensitization, skincare guidelines, scar massage, ROM exercises, strengthening exercises, and garment instructions Patient will increase active ROM of B shoulder to WNL to allow patient to achieve neutral postural alignment, for improved performance of ADLs. Patient will have supple scar with no tenderness to palpation and demonstrate and understanding of scar management Patient will demonstrate understanding of techniques used to address axillary webbing Patient/family able to verbalize all pertinent aspects of CDT Patient/family independent with donning/doffing compression garment and proper wearing schedule and care of garment Patient Goals: restore ROM Planned Interventions, Frequency, and Duration: Current Frequency: 1x/week Duration: 12 weeks Total Number of Visits Planned: 12 Planned Treatment Interventions: Therapeutic exercise (00474);Manual therapy (42067);Therapeutic activities (73419);Self-jail management (90826);Patient/Family/Caregiver Education PLAN FOR NEXT VISIT: MLD;scar/tissue mobs; ROM; HEP Patient demonstrates good understanding of plan of care and treatment. The above goals and plan of care were discussed and agreed upon by patient/family. 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 6 months of chemo. B mastectomy w ALND January 26, 2022. Drain tube B x 9 days. 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 Was sleeping in recliner; back in bed; able to sleep on R side last night Had difficulty breathing Pain: Pain Pain Level: 3 Pain Location: Axilla - Left Description: Numbness;Tingling PROMIS Scales Higher is Better 07/27/2021 12/06/2021 02/22/2022 Phys Func - Score - - 48 (within normal limits) Phys Func - Percentile - - 42 % GH Physical - Score 50.8 (Very Good) 50.8 (Very Good) - GH Physical - Percentile 53 % 53 % - GH Mental - Score 59 (Excellent) 48.3 (Very Good) - GH Mental - Percentile 82 % 43 % - Self-Eff Symptom - Score - - 50 (Average) Self-Eff Symptom - Percentile - - 50 % T-scores: mean of general population = 50. 5 points is clinically meaningfully difference Percentiles provide an indication of how the patient's score ranks in relation to the general population. Higher percentile rankings indicate better function/quality of life. 50th percentile is the average of the general population and indicates half of respondents had a worse score. T-scores: mean of general population = 50. 5 points is clinically meaningfully difference Percentiles provide an indication of how the patient's score ranks in relation to the general population. Higher perc (more content not included)... [facility]09-14-2022 History of Present illness Narrative* Shania Trinh, PT - 02/23/2022 6:10 PM EDT Episode Visit Count: 1 Therapist That Will Accept/Oversee The Plan Of Care: Gayathri Start of Care Date: 02/23/22 Onset Date: 01/26/22 Patient Identified by Name and Date of : Yes REHABILITATION AND SPORTS THERAPY PHYSICAL THERAPY EVALUATION PLAN OF CARE: Assessment: Trishfrank Gilliland presents with chief complaint of limited ROM B UE L > R that interferes with reaching overhead . She presents with impairments in independence in exercise, posture, range of motion, and soft tissue healing. PROMIS (Patient-Reported Outcomes Measurement Information System) scores were reviewed and all domains identified as within normal limits. Prognosis for therapy is Good due to: current objective clinical presentation;good overall health status . Pt presents withdecreased ROM, tightness in L axilla, possible cording and difficulty with reaching overhead following B mastectomy w ALND. She will benefit from skilled therapy services to meet the goals established for this plan of care as noted below. Goals for Episode of Care: created on 02/23/22 through 05/24/22 Patient able to verbalize skin care and lymphedema risk reductions Patient will demonstrate proper positioning of limb Patient/family independent with home exercise program including self MLD, desensitization, skincareguidelines, scar massage, ROM exercises, strengthening exercises, and garment instructions Patient will increase active ROM of B shoulder to WNL to allow patient to achieve neutral postural alignment, for improved performance of ADLs. Patient will have supple scar with no tenderness to palpation and demonstrate and understanding of scar management Patient will demonstrate understanding of techniques used to address axillary webbing Patient/family able to verbalize all pertinent aspects of CDT Patient/family independent with donning/doffing compression garment and proper wearing schedule andcare of garment Patient Goals: restore ROM Planned Interventions, Frequency, and Duration: Current Frequency: 1x/week Duration: 12 weeks Total Number of Visits Planned: 12 Planned Treatment Interventions: Therapeutic exercise (85976);Manual therapy (61294);Therapeutic activities (44023);Self-jail management (57866);Patient/Family/Caregiver Education PLAN FOR NEXT VISIT: MLD;scar/tissue mobs; ROM; HEP Patient demonstrates good understanding of plan of care and treatment. The above goals and plan of care were discussed and agreed upon by patient/family. 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 6 months of chemo. B mastectomy w ALND January 26, 2022. Drain tube B x 9 days. 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 Was sleeping in recliner; back in bed; able to sleep on R side last night Had difficulty breathing Pain: Pain Pain Level: 3 Pain Location: Axilla - Left Description: Numbness;Tingling PROMIS Scales Higher is Better 07/27/2021 12/06/2021 02/22/2022 Phys Func - Score - - 48 (within normal limits) Phys Func - Percentile - - 42 % GH Physical - Score 50.8 (Very Good) 50.8 (Very Good) - GH Physical - Percentile 53 % 53 % - GH Mental - Score 59 (Excellent) 48.3 (Very Good) - GH Mental - Percentile 82 % 43 % - Self-Eff Symptom - Score - - 50 (Average) Self-Eff Symptom - Percentile - - 50 % T-scores: mean of general population = 50. 5 points is clinically meaningfully difference Percentiles provide an indication of how the patient's score ranks in relation to the general population. Higher percentile rankings indicate better function/quality of life. 50th percentile is the average of the general population and indicates half of respondents had a worse score. T-scores: mean of general population = 50. 5 points is clinically meaningfully difference Percentiles provide an indication of how the patient's score ranks in relation to the general population. Higher percentile rankings indicate better function/quality of life. 50th percentile is the average of the general population and indicates half of respondents had a worse score. OBJECTIVE MEASURES WITH LEVEL OF FUNCTION: Posture / Alignment Posture: Forward head;Rounded shoulders Lymphedema Lymphedema Contributing Factors: Chemotherapy;Radiation;Lymph Node Removal Upper Extremity Circumferential Measurements R Thumb (proximal phalanx) (cm): 6.4 cm R Index Finger (proximal phalanx) (cm): 6.4 cm R Middle Finger (proximal phalanx) (cm): 6.4 cm R Ring Finger (proximal phalanx) (cm): 6 cm R Small Finger (proximal phalanx) (cm): 5.3 cm R DPC (cm): 19.4 cm R Distal Wrist Crease (DWC) (cm): 16.4 cm R 4 cm above wrist (cm): 17.1 cm R 8 cm above wrist (cm): 19.5 cm R 12 cm above wrist (cm): 22.8 cm R 16 cm above wrist (cm): 26.1 cm R 20 cm above wrist (cm): 27 cm R 24 cm above wrist (cm): 26.9 cm R 28 cm above wrist (cm): 27.5 cm R 32 cm above wrist (cm): 31.2 cm R 36 cm above wrist (cm): 34 cm R 40 cm above wrist (cm): 34.8 cm R 44 cm above wrist (cm): 37 cm L Thumb (proximal phalanx) (cm): 6.5 cm L Index Finger (proximal phalanx) (cm): 6.1 cm L Middle Finger (proximal phalanx) (cm): 6.2 cm L Ring Finger (proximal phalanx) (cm): 5.7 cm L Small Finger (proximal phalanx) (cm): 5.2 cm L DPC (cm): 19.5 cm L Distal Wrist Crease (DWC) (cm): 16 cm L 4 cm above wrist (cm): 17.3 cm L 8 cm above wrist (cm): 20 cm L 12 cm above wrist (cm): 23 cm L 16 cm above wrist (cm): 25.7 cm L 20 cm above wrist (cm): 26.6 cm L 24 cm above wrist (cm): 26 cm L 28 cm above wrist (cm): 29 cm L 32 cm above wrist (cm): 32.5 cm L 36 cm above wrist (cm): 33.7 cm L 40 cm above wrist (cm): 34.3 cm L 44 cm above wrist (cm): 37.5 cm Affected Arm : Left Arm Calculate Volume : Yes R Upper Extremity Volume: 2621.87 L Upper Extremity Volume: 2644.25 Difference in Volume: 22.38 Difference in % : 0.85 UE AROM R Shoulder Flex: 160 Degrees R Shoulder ABduction: 130 Degrees R Shoulder Internal Rotation: 70 Degrees R Shoulder External Rotation: 75 Degrees L Shoulder Flex: 140 Degrees L Shoulder ABduction: 125 Degrees L Shoulder Internal Rotation: 85 Degrees L Shoulder External Rotation: 60 Degrees Midline incision across chest- healing well- adhesive glue still intact Tight/decrease tissue; mild cording L axilla Education: Education Learning Preferences: Demonstration;Explanation;Performance;Printed Materials Barriers: None Learning/educational needs: Home exercise program;Changes in Plan of Care;Lymphedema Program Education Provided: Yes, see treatment interventions for education provided Education Provided To: Patient Education Mode/Type: Demonstration;Explanation/Discussion;Literature/Printed Materials Response to Education/Teach Back: States/Identifies TREATMENT: PT Treatment Interventions: Self-Halfway Management Evaluation Self-Halfway Management: 1: educated pt on : POC 2: lymphedema,rx,skin and nail care; limb precautions;risk reduction practices 3: cellulitis; use of low pH lotion daily; air travel; compression garments 4: miaderm/ aquaphor for skin care during radiation 5: HEP: pendulums 30 ea: side to side; cw; ccw 6: cane AAROM: flex,abd,er 10 sec x 10 7: IR towel stretch 10 sec x 10 8: corner pec stretch 30 sec x 5 Skilled Intervention: Provided written instruction for home program to facilitate proper performance and compliance. Billing * Evaluation Low Complexity: 1 Unit Self-Care/Home Management Treatment Minutes: 40 Total Treatment Time Minutes (timed/untimed): 60 Shania Trinh PT documented in this encounterSt. [facility] [facility] History of Present illness Narrative* Radha Mckeon MD, MD - 02/18/2022 2:30 PM EDT I saw her in June for Synchronous bilateral breast cancer. She had clinical stage IIA, cT2N1 grade 2 invasive ductal carcinoma of the left breast. (ER positive (>95%), CT positive (25%) and Her2 0) and clinical stage IA, cT1N0, grade 2 invasive ductal carcinoma of the right breast. (ER positive (>95%), CT positive (>95%) and Her2 0.) Since then, she underwent neoadjuvant chemotherapy with AC followed by Taxol. She then underwent bilateral mastectomy and left axillary node dissection and right sentinel node biopsy on 01/26/22. Pathology showed residual grade 2 invasive ductal carcinoma in the left breast measuring 33 mm. There was DCIS component measuring 21 mm but no EIC. There was positive LVI. Surgical margins were negative with the closest margin greater than 25 mm. Two out of 15 left axillary nodes were positive for metastasis. One macrometastasis measuring 28 mm and the other micrometastasis. There was no extranodal extension. Pathological stage was IIA, ypT2 ypN1a. For the right breast, there was residual grade 2 in vasive ductal carcinoma measuring 11 mm. There was DCIS component measuring 4 mm but no EIC. LVI cannot be determined. Surgical margins were negative with the closest margin great than 40 mm. 2 out of five sentinel nodes were involved with micrometastases. There was no extranodal extension. Pathological stage IA, ypT1c ypN1mi. I recommend postmastectomy radiation treatment to bilateral chest wall and regional lymphatics. I explained the rationale, benefits, alternative management options and potential complications of radiation treatment to the patient and she understands and agrees to proceed. It was explained and understood that other personnel such as radiation therapists, youth leader, and physicists will partici rivera in planning and delivery of radiation treatment. Permanent tattoo sheth will be placed to aid with positioning for daily treatment and the patient consented. Patient will have a simulation procedure in a few weeks after she heals from mastectomy. documented in this encounterSt. [facility] [facility] NoteHNO ID: [id number] Author: Garry Santos MD Service: ? Author Type: Physician Type: Progress Notes Filed: 02/18/2022 12:40 PM Note Text: CHIEF COMPLAINT: Patient presents with: Post Op Patient here for post op visit. Patient relates incision is clean, dry, and intact. Lisa Sommers MA ALLERGIES Allergen Reactions Emend [Fosaprepitan* Shortness of Breath Penicillins Swelling Polysorbate 80 Shortness of Breath Taxol [Paclitaxel] Anaphylaxis Current Outpatient Medications Medication Sig ibuprofen (MOTRIN) 200 mg tablet Take 400 mg by mouth every 8 hours as needed. biotin 1 mg cap Take 1 mg by mouth once daily. acetaminophen (TYLENOL) 325 mg tablet Take 650 mg by mouth every 6 hours as needed. calcium carbonate/vitamin D3 (TOÑITO-600 WITH VITAMIN D ORAL) Take 1 tablet by mouth once daily. oxyCODONE IR (ROXICODONE) 5 mg immediate release tablet Take 1 tablet by mouth every 6 hours as needed for pain. (Patient not taking: No sig reported) gabapentin (NEURONTIN) 300 mg capsule Take 1 capsule by mouth three times daily for 90 days. lidocaine-prilocaine (EMLA) 2.5-2.5 % cream Apply to port site 60 minutes prior to accessing. (Patient not taking: Reported on 02/18/2022) Current Facility-Administered Medications Medication Dose Route Frequency sodium chloride 0.9 % (flush) 10 mL (BD POSIFLUSH) 10 mL INTRAVENOUS DIRECTED PRN perflutren lipid microspheres 1.3 mL in NaCl (PF) 0.9% 10 mL injection (DEFINITY) INTRAVENOUS DIRECTED PRN sodium chloride 0.9 % (flush) 10 mL (BD POSIFLUSH) 10 mL INTRAVENOUS DIRECTED PRN PHYSICAL EXAM: BP 130/66 Pulse 73 Ht 5' 7 (1.70m) Wt 239 lb (108.4kg) LMP 10/11/2021 BMI 37.42 kg/(m2). General Appearance: Well appearing, alert, in no acute distress, well-hydrated, well nourished. Skin: Negative for jaundice or pallor. Lungs: Normal respirations Breast: Bilateral mastectomy incisions are well approximated and healing well without infection or fluid collection. No drainage from any of the incision sites. Axilla: Left axilla reveals mild edema of the soft tissue but no discrete fluid collection, erythema or tenderness. Musculoskeletal: No soft tissue edema; good ROM both UE's Data Reviewed: Operative and pathology findings ASSESSMENT/PLAN: 1. Aftercare following surgery - ICD9: V58.89, ICD10: Z48.89 -Patient is advised on wound care and activity and will follow up in 4 weeks or sooner if needed. Garry Santos MD ?I verified the biomedical scientist/nurse documentation in the medical record, and made appropriate changes. I personally performed a history, physical exam and medical decision making. Garry Santos, [facility]09-09-2022 History of Present illness Narrative* Garry Santos MD - 02/18/2022 11:49 AM EDT CHIEF COMPLAINT: Patient presents with: Post Op Patient here for post op visit. Patient relates incision is clean, dry, and intact. Lisa Sommers MA ALLERGIES Allergen Reactions Emend [Fosaprepitan* Shortness of Breath Penicillins Swelling Polysorbate 80 Shortness of Breath Taxol [Paclitaxel] Anaphylaxis Current Outpatient Medications Medication Sig ibuprofen (MOTRIN) 200 mg tablet Take 400 mg by mouth every 8 hours as needed. biotin 1 mg cap Take 1 mg by mouth once daily. acetaminophen (TYLENOL) 325 mg tablet Take 650 mg by mouth every 6 hours as needed. calcium carbonate/vitamin D3 (TOÑITO-600 WITH VITAMIN D ORAL) Take 1 tablet by mouth once daily. oxyCODONE IR (ROXICODONE) 5 mg immediate release tablet Take 1 tablet by mouth every 6 hours as needed for pain. (Patient not taking: No sig reported) gabapentin (NEURONTIN) 300 mg capsule Take 1 capsule by mouth three times daily for 90 days. lidocaine-prilocaine (EMLA) 2.5-2.5 % cream Apply to port site 60 minutes prior to accessing. (Patient not taking: Reported on 02/18/2022) Current Facility-Administered Medications Medication Dose Route Frequency sodium chloride 0.9 % (flush) 10 mL (BD POSIFLUSH) 10 mL INTRAVENOUS DIRECTED PRN perflutren lipid microspheres 1.3 mL in NaCl (PF) 0.9% 10 mL injection (DEFINITY) INTRAVENOUS DIRECTED PRN sodium chloride 0.9 % (flush) 10 mL (BD POSIFLUSH) 10 mL INTRAVENOUS DIRECTED PRN PHYSICAL EXAM: BP 130/66 Pulse 73 Ht 5' 7 (1.70m) Wt 239 lb (108.4kg) LMP 10/11/2021 BMI 37.42 kg/(m^2). General Appearance: Well appearing, alert, in no acute distress, well-hydrated, well nourished. Skin: Negative for jaundice or pallor. Lungs: Normal respirations Breast: Bilateral mastectomy incisions are well approximated and healing well without infection or fluid collection. No drainage from any of the incision sites. Axilla: Left axilla reveals mild edema of the soft tissue but no discrete fluid collection, erythema or tenderness. Musculoskeletal: No soft tissue edema; good ROM both UE's Data Reviewed: Operative and pathology findings ASSESSMENT/PLAN: 1. Aftercare following surgery - ICD9: V58.89, ICD10: Z48.89 -Patient is advised on wound care and activity and will follow up in 4 weeks or sooner if needed. Garry Santos MD I verified the biomedical scientist/nurse documentation in the medical record, and made appropriate changes. I personally performed a history, physical exam and medical decision making. Garyr Santos MD documented in this encounterSt. [facility] [facility] Nurse Note* Sarah Ramirez RN - 02/17/2022 3:22 PM EDT Radiation Therapy - Nursing Note (Follow-up) PATIENT NAME: Trish Gilliland PATIENT February 17, 2022 [facility] FACILITY/LOCATION: [place] Reason for visit: Follow up. Subjective Data no new complaints, Additional Data Do you want to see a Retail Grocer? No Nursing Assessment Fatigue: increased fatigue over baseline but not altering normal activities Appetite: good Weight Gain/Loss: No Last 6 Encounter Wt Readings: Date: Wt: 02/16/2022 108.6 kg (239 lb 8 oz) 02/04/2022 108 kg (238 lb) 01/19/2022 113.7 kg (250 lb 9.6 oz) 12/29/2021 108.2 kg (238 lb 8.6 oz) 12/09/2021 111.6 kg (246 lb) 12/07/2021 112.3 kg (247 lb 8 oz) Bowel Function: normal bowel movements Bone Pain: none Focused Assessment BREAST: Lymphedema Assessment: Is the patient noting any swelling? Yes, note duration - has sleeve and glove ordered for swelling. SIGNED by: Sarah Ramirez RN documented in this encounterSt. Mary[facility] [facility] Miscellaneous Notes* Telephone Encounter - Danielle Austin RN - 02/17/2022 9:16 AM EDT EMERGENCY ROOM CALL BACK Today's date: February 17, 2022 Patient identified by name and date of . YES Primary Cancer Diagnosis: Breast Reason for Emergency Room Visit: Elevated D-dimer, shortness of breath Time of day presented to Emergency Room 1429 If Mon-Monday during business hours: Did you contact your Make Up Editor/Provider? Yes, told to present to emergency department Patient with any new symptom issues: No Psychosocial Risk Factors: None FOLLOW UP Patient reminded of her follow-up appointment with [facility] provider, Dr. Mckeon on 02/17/22: to discuss XRT. Patient is planning on keeping appt. Also has follow up with Dr. Santos on 02/18/22 for 2 week post op check Next Make Up Editor outreach with patient scheduled? as needed Discussed: ED work up negative. Patient states she is not to bad today. Patient slept in recliner last pm and slept pretty goodand denies any issue with shortness of breath. Patient was advised in ED to follow up with PCP regarding shortness of breath with sleeping for possible sleep apnea workup. Patient states that since she slept ok last night in the recliner, she is hoping that it is just part of the healing process and will discuss with Dr. Santos at Monday appointment. Reviewed upcoming appointment with our office and to call back in with any issues/concerns. PATIENT EDUCATION/REINFORCEMENT Patient verbalizes understanding of when to seek Medical Attention? YES Patient verbalizes understanding of after hours and weekend phone number? YES Patient verbalizes understanding of next outreach appointment? YES Danielle Austin RN documented in this encounterSt. Mary[facility] [facility]09-[facility] Miscellaneous Notes* Telephone Encounter - Linette Baltazar LPN - 02/16/2022 1:05 PM EDT Patient is agreeable with plan to go to [facility] ED. A copy of this note and today's OV note faxed to [facility] ED. Linette Baltazar LPN * Telephone Encounter - Rachid Moore DO - 02/16/2022 12:50 PM EDT As discussed at OV, please send to [facility] ED for CTA chest to rule out PE. Rachid Moore DO * Telephone Encounter - Linette Baltazar LPN - 02/16/2022 12:47 PM EDT Patient s identity has been confirmed by name and birthdate: Yes Call received from Mendoza from [facility] lab at 1247 PM to report a critical value for D Dimer with a result of 0.92. Dr Moore was notified of the result at 1247PM. Linette Baltazar LPN documented in this encounterSt. Mary'[facility] [facility]09-[facility] History of Present illness Narrative* RT Eli(R) - 02/16/2022 10:20 AM EDT Radiology Service Progress Note PATIENT NAME: Trish Gilliland DATE OF SERVICE: February 16, 2022 TIME: 10:20 AM PATIENT IDENTITY VERIFICATION COMPLETED USING TWO (2) IDENTIFIERS: Name and Date of confirmedby patient verbally. FALL SCREENING: Has the patient had 2 falls in the last year or 1 fall with injury or currently using an Ambulatory Assistive Device (Walker, Cane, Wheelchair, Crutches, etc.)? No PATIENT GENDER DATA: Female. status: : No status: NO. PATIENT RELEVANT IMPLANT DATA REVIEWED: Not Applicable RADIOLOGY DEPARTMENT: General X-ray: Exam(s) Completed: Chest X-Ray PERIPHERAL IV DATA: Not applicable SIGNED BY: RT Eli(R) February 16, 2022 10:20 AM documented in this encounterSt. Mary'[facility] [facility]09[facility] History of Present illness Narrative* Liat Vidales RN - 02/16/2022 10:01 AM EDT CASE [id number] Genetic and inflammatory biomarkers in neuropathic pain secondary to chemotherapy (Genie-B) -a study in patients undergoing treatment for breast cancer. Informed Consent signed on: 08/25/2021 STUDY ID #: [id number] Patient presents today for her Visit 5. Met with patient for the above mentioned trial. Patient hascompleted all of her questionaires for Visit 5. Patients Labs were collected and sent via [employer]. All of the patient's questions were answered. Patient is doing well and feels post surgery she is doing quite well. She had surgery 01/26. Patient has swelling in left axillary area and Masci ordered Ddimer and xray. Patient to report to ER based on results and repeat CT when she comes for her next visit. Vital signs, allergies and concomitant medications reviewed. ECOG/KPS =90. PE performed by Radha Mckeon M.D. on June. Patient's current therapy plan is AMB AC DOSE DENSE - DOXORUBICIN 60 CYCCLOPHOSPHAMIDE 600 D1-Q14D THEN WEEKLY PACLITAXEL X12. Taxol Protocol Start Date: 09/30 labs and visit 10/01 V2/Treatment Cycle1 of NEW TREATMENT 10/22 V3 Reduced Treatment at Abraxane 200 mg meter squared and administer once weekly for 5 weeks. Vitals: 02/16/2022 Weight 108.6 kg (239 lb 8 oz) BSA 0 BMI 0 Temp 36.8 C (98.2 F) Pulse 76 BP 110/65 Concomitant medication review: Yes and unchanged Current Outpatient Medications on File Prior to Visit Medication Sig Start/Stop Comment furosemide (LASIX) 20 mg tablet Take 1 tablet by mouth once daily. 08/25/2021 / 11/15/2021 OLANZapine (ZYPREXA) 10 mg tablet Take 1 tablet by mouth daily at bedtime. for 4 nights beginning the night of chemotherapy treatment. 08/04/2021 / 11/26/2021 omeprazole (PRILOSEC) 40 mg capsule Take 1 capsule by mouth once daily. 07/28/2021 / 11/26/2021 lidocaine-prilocaine (EMLA) 2.5-2.5 % cream Apply to port site 60 minutes prior to accessing. 07/09/2021 promethazine (PHENERGAN) 25 mg tablet Take 1 tablet by mouth every 6 hours as needed. FOR NAUSEA 07/04/2021 / 11/26/2021 dexAMETHasone (DECADRON) 4 mg tablet Take 1 tablet by mouth twice daily with meals. on the second, third and fourth day after each chemotherapy treatment. 07/04/2021 / 11/26/2021 Tylenol 500mg Take 500 mg (1-2 tablets) by mouth every 6-8 hours as needed. calcium carbonate/vitamin D3 (TOÑITO-600 WITH VITAMIN D ORAL) Take 1 tablet by mouth once daily. ibuprofen (MOTRIN) 200 mg tablet Take 400 mg by mouth every 8 hours as needed. 09/08/2021 Prednisone (Deltasone) 20 mg Take 1 tablet the evening prior to the morning of each chemotherapy treatment 10/21/2021 / 11/26/2021 Gabapentin (Neurontin) 300 mg Take 1 capsule by mouth three times daily for 90 days 10/13/2021 / 11/26/2021 Biotin Take 1 capsule by mouth daily Current Facility-Administered Medications on File Prior to Visit Medication perflutren lipid microspheres 1.3 mL in NaCl (PF) 0.9% 10 mL injection (DEFINITY) sodium chloride 0.9 % (flush) 10 mL (BD POSIFLUSH) Pertinent denials: 1. Inability or unwillingness to provide Informed Consent - denies, admits to 2. Patients receiving other adjuvant chemotherapies that may have neuropathy as side effects. Examples include: Cisplatin, FOLFOX, Vincristine, Vinblastine, Vinorelbine, Eribulin, Ixabepilone. - denies 3. Opioid use (more than 3 doses in the 7 days prior to enrollment). If opioid use is initiated during the study it will be recorded and the patient may continue participation.- denies 4. Daily use of NSAIDs for the 4 weeks prior to study enrollment. Intermittent use of no more than 5 doses per week for pain such as headache or muscle ache is allowed. Low dose aspirin (81 mg QD) is allowed and should be continued as indicated.- denies 5. Chronic steroid therapy (eg. Greater than a physiological replacement dose of prednisone 10mg QD) for the management of inflammatory conditions (eg. Arthritis, asthma or IBD). Intranasal steroids are acceptable.- denies 6. Febrile illness within 2 weeks prior to enrollment - denies 7. Patients with neuropathic pain syndrome (eg. Diabetic neuropathy, post-herpetic neuralgia, complex regional pain syndrome) diagnosed prior to study entry on review of the patient s medical record or self-reported by the patient.- denies 8. Any other diagnosis, both physical or psychological, or physical exam finding that in the opinion of the traffic investigator precludes participation.- denies Patient meets all Criteria for Study Participation: Yes Study includes the following: Allowing a research blood draw. Does Patient Consent to Optional Studies? -Your sample(s) and/or data may be stored and used for research about other health problems. Yes -Your samples and/or data, without identifying information, may be shared with other investigators/groups and/or [facility] repositories. Yes -Please check below to indicate your preferences regarding the optional agreement to receive e-mailcorrespondence for questionnaire completion prior to study visits. Yes The patient knows to RTC in 3 months. The plan is to have the patient to complete the Visit 6 questionnaires, labs, and treatment visit requirements at her next OV. Patient understands to call the office sooner if needed and has my contact information for any additional questions regarding the study. DREW Stephen, RN Clinical Research Nurse [phone] documented in this encounterSt. [facility] [place] [facility] History of Present illness Narrative* Rachid Moore, DO - 02/16/2022 9:10 AM EDT Oncologic problem(s): 1) cT1c cN0 ER/CT positive (both greater than 95%, strong intensity) and HER2 negative, IHC 0 [id number] infiltrating ductal carcinoma of the RIGHT breast. 2) cT2 cN1 ER positive (greater than 95%, moderate intensity), CT positive (25%, low to moderate intensity) and HER2 negative with IHC 0 stage IIB infiltrating ductal carcinoma of the LEFT breast. HPI: The patient is a 46-year-old female with an unremarkable past medical history. Patient appreciated a mass in the left breast starting about 8 months prior to presentation. She eventually developed pain and presented to the emergency room where she underwent a CTA of the chest on 06/14/2021. That study demonstrated no evidence of pulmonary embolism. There was an enhancing left axillary lymph node measuring 2.4 x 1.7 x 1.4 cm and there was also an ill-defined 2.4 x 2.3 x 2.1 cm soft tissue mass in the left breast. Smaller nodular density measuring 1 cm was observed in the upper medial right breast. There was evidence of old granulomatous disease without further comment. Patient underwent diagnostic mammogram on 06/15/2021 2 x 2.3 cm irregular mass in the anterior upper central portion of the left breast was observed. Biopsy was strongly recommended. There was also evidence of a 1.2 x 1 cm irregular nodule in the anterior subareolar region of the left breast for which biopsy was also recommended. The impression was bilateral breast masses but no comment was made onthe right breast. Correlation with ultrasound the left axillary region was also recommended. Ultrasound of the right and left breasts was performed on 06/16/2021. Within the right breast there was a 7 x 7 x 7 mm ill-defined hypoechoic nodule with shadowing and increased blood flow at the 2 o'clock position of the breast at 5 cm from the nipple. There was a similar-appearing nodular density measuring 4 x 4 x 4 mm also observed at the 1 o'clock position of thebreast 3 cm from the nipple. The impression was that of 2 adjacent hypoechoic irregular solid nodule s at the 1 and 2 o'clock position of the breast as described. In the left breast there was a 2.7 x 3.5 x 2.3 cm irregular hypoechoic solid mass at the 12 o'clockposition of the breast 3 cm from the nipple. Increased vascularity was observed. Biopsy was recommended. There was also evidence of a prominent lymph node in the left axillary region measuring 1.3 x 0.9 x 0.4 cm. Biopsy was recommended. Underwent biopsy on 06/16/2021. Ultrasound-guided biopsy was obtained of the left axillary enlarged lymph node with clip marking. The left breast mass was also biopsied using a 14-gauge biopsy needle with several passes and clipping. The right breast was also imaged with ultrasound and 2 masses were identified. Under ultrasound guidance, both of these masses were biopsied and clips were placed intoeach of them. Pathology: -Core biopsy of the RIGHT breast mass at the 2 o'clock position demonstrated invasive ductal carcinoma, nuclear grade 1. -Core biopsy of the RIGHT breast mass at 2 o'clock position also revealed fragments of benign breast tissue with fibrosis and focal minimal intraductal hyperplasia without atypia negative for malignancy. -The LEFT breast core biopsy demonstrated invasive ductal carcinoma, nuclear grade 2 as well as ductal carcinoma in situ. -LEFT axillary lymph node core biopsy revealed metastatic carcinoma consistent with breast primary. The comment reads that the left breast core biopsy demonstrating ductal carcinoma revealed DCIS comprising about 70% of the total tumor volume with solid pattern and nuclear grade 2. Necrosis and calcifications were not observed. The entire specimen from the lymph node biopsy demonstrated tumor. No lymph node tissue was identified. It measured 1.2 cm in greatest length and was nuclear grade 2. The cancer specimen from the right breast was ER/CT positive (both greater than 95%, strong intensity) and HER2 negative, IHC 0 The left breast tumor was ER positive (greater than 95%, moderate intensity), CT positive (25%, lowto moderate intensity) and HER2 negative with IHC 0. MRI breasts 06/21/2021: Right breast: Breast tissue is scattered fibroglandular densities with minimal background enhancement. At the 2 o'clock position of the breast 4 cm behind the nipple and 5 cm above the nipple there were 2 irregular enhancing masses. The mass closest to the nipple measured 11 x 7 mm in diameter. Slightly above and more medial to this lesion was another smaller lesion measuring approximately 5 mm in diameter. Tissue clip artifact was noted medial to this superior lesion. Also of these lesions appeared to correspond to the ultrasound findings and were highly suspicious. Small axillary lymph nodes were noted none of which were pathologically enlarged. Left breast: There was a large enhancing mass at the 12 o'clock position 4.4 cm above the nipple and 4 cm behindthe nipple measuring 3.4 x 2.7 x 3.6 cm. This lesion corresponded to the mass shown on ultrasound. Enlarged lymph node in the left axillary region measured 2.6 x 2.2 x 2.3 cm highly suspicious for tumor involvement. No abnormality was visualized in the regions of the chest or liver. Impression overall was 2 enhancing lesions in the right breast and a large enhancing lesion in the left breast corresponding to theultrasound findings. Enlarged left axillary lymph node which was highly suspicious for tumor involvement. She was having pain in the tumor of the left breast. Menses were irregular. Two children. Two boys ages 21 and 18. . works at [employer]. Underwent CT scan of chest, abdomen pelvis and was found to have pathologic left axillary lymphadenopathy. Breast masses were observed in each breast with the left being much larger than the right. There were nonspecific mildly prominent right hilar lymph node sequela of old granulomatous exposure and scattered less than 5 mm pulmonary nodules. Previous therapy: 1) AC followed by T. Had severe infusion reaction with the first 3 doses of Taxol. Following that therapy was changed to Abraxane. Current therapy: Presents for ongoing oncologic management. Interim history: Underwent bilateral mastectomy with right sentinel lymph node biopsy, left sentinel lymph node biopsy with frozen section, left axillary completion dissection and right Mediport removal on 01/26/2022. Pathology reviewed in detail. Since surgery she has been experiencing dyspnea and a sensation of stopping breathing when she goesinto a semirecumbent position and starts to fall asleep. She does not have any lower extremity swelling or exertional chest pain. No leg pain. No cough or wheeze. Fingers do not feel swollen like they did when she was in first need of Lasix. PMH, medications and allergies personally reviewed by me today. Any changes documented in appropriate section. ROS: Constitutional: Denies episodes of fever and night sweats. Neuro: Denies GAMEZ, vertigo, dizziness and imbalance. HEENT: No recent change in voice, vision or hearing. CVS: Denies exertional chest pain. GI: Denies dysgeusia. Denies symptoms of stomatitis. Denies dysphagia and odynophagia. Denies reflux, n/v, change in bowel habits and abdominal pain. : Denies dysuria or gross hematuria. No symptoms of bladder outlet obstruction. Endo: Denies hot flashes. Denies polyuria and polydipsia. Denies heat and cold intolerance. Derm: Denies rash. Denies jaundice and diffuse pruritis. Heme: Denies unusual bleeding and unexplained bruising. Psych: Normal mood. Family history: 1) MGM--breast cancer and cervix cancer. Diagnosed with breast cancer age 48. Had Radical mastectomy 1978. 5 of 22 nodes positive. of breast cancer age 52. Had hysterectomy 1962 for scc cervix. PHYSICAL EXAM: Vitals: Blood pressure 110/65, pulse 76, temperature 36.8 C (98.2 F), temperature source Temporal, weight 108.6 kg (239 lb 8 oz), last menstrual period 10/11/2021. Well-appearing and in no acute distress. EYES: Sclerae are anicteric bilaterally. LYMPHATIC: There is no palpable cervical or supraclavicular adenopathy. RESPIRATORY: Inspiratory breath sounds are of normal intensity in all boyer. No rales, wheezes or rhonchi. Expiratory phase is normal. CARDIOVASCULAR: Rhythm is regular. 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 There is a transverse incision across the chest wall well-healing with no sign of infection. Mild fluid collection along the lateral left side. No chest wall tenderness per se. ABDOMEN: The abdomen is nondistended. Extremities: No swelling or edema. SKIN: No jaundice or rash. No petechiae. 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 No focal motor weakness. LABS: Component Latest Ref Rng & Units 02/16/2022 WBC 3.70 - 11.00 k/uL 6.03 RBC 3.90 - 5.20 m/uL 4.52 Hemoglobin 11.5 - 15.5 g/dL 13.0 Hematocrit 36.0 - 46.0 % 39.0 MCV 80.0 - 100.0 fL 86.3 MCH 26.0 - 34.0 pg 28.8 MCHC 30.5 - 36.0 g/dL 33.3 RDW-CV 11.5 - 15.0 % 12.6 Platelet Count 150 - 400 k/uL 345 MPV 9.0 - 12.7 fL 8.9 (L) Neut% % 43.8 Abs Neut (ANC) 1.45 - 7.50 k/uL 2.64 Lymph% % 30.7 Abs Lymph 1.00 - 4.00 k/uL 1.85 Preston% % 6.6 Abs Preston <0.87 k/uL 0.40 Eosin% % 17.7 Abs Eosin <0.46 k/uL 1.07 (H) Baso% % 1.0 Abs Baso <0.11 k/uL 0.06 Immature Gran % % 0.2 IMMATURE GRANS (ABS) <0.10 k/uL <0.03 NRBC /100 WBC 0.0 Absolute nRBC <0.01 k/uL <0.01 DTYPE Auto Protein, Total 6.3 - 8.0 g/dL 6.9 Albumin 3.9 - 4.9 g/dL 4.2 Calcium 8.5 - 10.2 mg/dL 9.7 Bilirubin, Total 0.2 - 1.3 mg/dL 0.4 Alkaline Phosphatase 34 - 123 U/L 77 AST 13 - 35 U/L 14 ALT 7 - 38 U/L 15 Glucose 74 - 99 mg/dL 96 BUN 7 - 21 mg/dL 19 Creatinine 0.58 - 0.96 mg/dL 0.72 Sodium 136 - 144 mmol/L 141 Potassium 3.7 - 5.1 mmol/L 3.9 Chloride 97 - 105 mmol/L 103 CO2 22 - 30 mmol/L 25 Anion Gap 9 - 18 mmol/L 13 eGFR >=60 mL/min/1.73m 104 ASSESSMENT/PLAN: (C50.412, Z17.0) Malignant neoplasm of upper-outer quadrant of left breast in female, estrogen receptor positive (HCC) (primary encounter diagnosis) Assessment: -cT1c cN0 ER/CT positive (both greater than 95%, strong intensity) and HER2 negative, IHC 0 stage 1A infiltrating ductal carcinoma of the RIGHT breast. -cT2 cN1 ER positive (greater than 95%, moderate intensity), CT positive (25%, low to moderate intensity), HER2 negative with IHC 0 stage IIB infiltrating ductal carcinoma of the LEFT breast. -CT scans revealed no evidence of metastatic disease but there were a few small subcentimeter pulmonary nodules that will require follow-up. -ypT2 (3.3 cm; grade 2; +LVI) pN1a (two of 15 LNs +; larges 2.8 cm without extranodal extension) ER/CT positive, HER2 1+ (enriched) stage IIB invasive ductal carcinoma of the LEFT breast. -ypT1c (1.1 cm; grade 2; LVI not determined) pN1mi (2 of 5 LNs; largest 1 mm deposit) ER/CT positive, HER2 0 stage IB invasive ductal carcinoma of the RIGHT breast. -Genetic testing negative. -Discussed plan going forward. No clear indication for further chemotherapy. She requires ovarian suppression along with aromatase inhibitor therapy. Also potential addition of abemaciclib depending on Ki67 testing. Discussed this in detail with her. -Dyspnea when in semi-recumbent position. Plan: -Begin Lupron injections. -Referral for opinion on radiation. -Add letrozole 1 month after Lupron injection or when completes radiation if indicated. -Order for Ki67 testing for both tumor specimen submitted to see if qualifies for abemaciclib. -Repeat CT chest prior to OV in about a month. -For the dyspnea, obtain BNP, stat D-dimer and chest x-ray today. If D-dimer positive then she willbe directed to the ED for CTA of the chest later today. Portions of this documentation were copied and pasted from previous office visit notes in order to provide a cohesive continuity of the history. The note has been reviewed and edited and updated as necessary. During this patient visit I have spent approximately 20 minutes out of 30 in counseling regarding treatment options, medications and test results and coordinating care. Rachid Moore DO documented in this encounterSt. [facility] [facility]22 NoteHNO ID: [id number] Author: Garry Santos MD Service: ? Author Type: Physician Type: Progress Notes Filed: 02/04/2022 11:00 AM Note Text: CHIEF COMPLAINT: Patient presents with: Post-Op Visit HISTORY OF PRESENT ILLNESS: Trish Gilliland is a 46 year old female who is here for her 1 week post-op visit. Patient had bilateral mastectomies. Patient had right SLNB and left ALND. Patient relates incisions are clean, dry, and intact. Denies signs of erythema. Patient states left underarm area is the most uncomfortable. Patient also states she had an episode last night she woke up and felt like she had stopped breathing. Drain output is as follows: RIGHT LEFT 02/03- 20cc 6cc 02/02- 25cc 15cc 02/01- 30cc 20cc Kait Morris MA ALLERGIES Allergen Reactions Emend [Fosaprepitan* Shortness of Breath Penicillins Swelling Polysorbate 80 Shortness of Breath Taxol [Paclitaxel] Anaphylaxis Current Outpatient Medications Medication Sig biotin 1 mg cap Take 1 mg by mouth once daily. acetaminophen (TYLENOL) 325 mg tablet Take 650 mg by mouth every 6 hours as needed. lidocaine-prilocaine (EMLA) 2.5-2.5 % cream Apply to port site 60 minutes prior to accessing. calcium carbonate/vitamin D3 (TOÑITO-600 WITH VITAMIN D ORAL) Take 1 tablet by mouth once daily. oxyCODONE IR (ROXICODONE) 5 mg immediate release tablet Take 1 tablet by mouth every 6 hours as needed for pain. (Patient not taking: Reported on 02/04/2022) gabapentin (NEURONTIN) 300 mg capsule Take 1 capsule by mouth three times daily for 90 days. Current Facility-Administered Medications Medication Dose Route Frequency perflutren lipid microspheres 1.3 mL in NaCl (PF) 0.9% 10 mL injection (DEFINITY) INTRAVENOUS DIRECTED PRN sodium chloride 0.9 % (flush) 10 mL (BD POSIFLUSH) 10 mL INTRAVENOUS DIRECTED PRN PHYSICAL EXAM: BP 100/45 Pulse 85 Ht 5' 7 (1.70m) Wt 238 lb (108.0kg) LMP 10/11/2021 BMI 37.27 kg/(m2). General Appearance: Well appearing, alert, in no acute distress, well-hydrated, well nourished. Skin: Negative for jaundice or pallor. Lungs: Normal respirations Breast: Bilateral mastectomy incisions are well approximated healing well without evidence of infection or fluid collection. CLARENCE drains removed without difficulty and sterile dry dressings were applied. Axilla: Musculoskeletal: No soft tissue edema; calves non tender Data Reviewed: Op and path findings ASSESSMENT/PLAN: 1. Aftercare following surgery - ICD9: V58.89, ICD10: Z48.89 (primary diagnosis) -46-year-old female doing well status post bilateral mastectomy for bilateral breast cancer with right sentinel lymph node biopsy and left sentinel lymph node biopsy followed by axillary dissection. -Her CLARENCE drains are removed and she is advised on wound care and activity -She will follow-up in 2 weeks or sooner if needed. -She plans on following up with her oncologist in the next 2 weeks as well, and will discuss whether radiation therapy is warranted. Garry Santos MD ?I verified the biomedical scientist/nurse documentation in the medical record, and made appropriate changes. I personally performed a history, physical exam and medical decision making. Garry Santos, [facility]08-26-2022 Instructions* Patient Instructions* Nancie House MD - 02/04/2022 10:57 AM EDT ARM EXERCISES The following exercises are recommended for the arm on the same side as your breast cancer surgery. ARM STRETCHES 1. With your arm straight, slowly raise it in front of you until you feel gentle resistance or discomfort. Hold it there and slowly count to 5. Slowly lower it back down to your side. Repeat this 2 more times. 2. With your arm straight, slowly raise it out to your side until you feel gentle resistance or discomfort. Hold it there and slowly count to 5. Lower your arm slowly back down to your side. Repeat this 2 more times. 3. With your arm straight, slowly raise it out behind you until you feel gentle resistance or discomfort. Hold it there and slowly count to 5. Lower your arm slowly back down to your side. Repeat this 2 more times. ARM CIRCLES 1. With your arm straight, slowly raise it in front of you until you feel gentle resistance or discomfort. Rotate your arm in a circular pattern, like you were circling a basketball with it. First rotate your arm to the left for 5 circles, then to the right for 5 more. Lower your arm gently back toyour side. Repeat the circles with your arm out to your side and again with your arm extended behind you. FINGER WALKIING 1. Stand near a wall with your arm straight out in front of you. Let your fingers touch the wall. Gently walk your fingers up the wall. Stop at the point where you feel gentle resistance or discomfort. Then, walk your fingers back down the wall. Repeat this same motion with your arm out to the side. 2. Repeat this exercise, walking the palm of your hand up the wall. You may find it easier to do these exercises in a warm shower, especially the first few times you do them. If you have questions about these exercises, contact your doctor or nurse. documented in this encounterSt. Mary'[facility] [facility] History of Present illness Narrative* Garry Santos MD - 02/04/2022 10:22 AM EDT CHIEF COMPLAINT: Patient presents with: Post-Op Visit HISTORY OF PRESENT ILLNESS: Trish Gilliland is a 46 year old female who is here for her 1 week post-op visit. Patient had bilateral mastectomies. Patient had right SLNB and left ALND. Patient relates incisions are clean, dry, and intact. Denies signs of erythema. Patient states left underarm area is the most uncomfortable. Patient also states she had an episode last night she woke up and felt like she had stopped breathing. Drain output is as follows: RIGHT LEFT 8/25- 20cc 6cc 02/02- 25cc 15cc 02/01- 30cc 20cc Kait Morris MA ALLERGIES Allergen Reactions Emend [Fosaprepitan* Shortness of Breath Penicillins Swelling Polysorbate 80 Shortness of Breath Taxol [Paclitaxel] Anaphylaxis Current Outpatient Medications Medication Sig biotin 1 mg cap Take 1 mg by mouth once daily. acetaminophen (TYLENOL) 325 mg tablet Take 650 mg by mouth every 6 hours as needed. lidocaine-prilocaine (EMLA) 2.5-2.5 % cream Apply to port site 60 minutes prior to accessing. calcium carbonate/vitamin D3 (TOÑITO-600 WITH VITAMIN D ORAL) Take 1 tablet by mouth once daily. oxyCODONE IR (ROXICODONE) 5 mg immediate release tablet Take 1 tablet by mouth every 6 hours as needed for pain. (Patient not taking: Reported on 02/04/2022) gabapentin (NEURONTIN) 300 mg capsule Take 1 capsule by mouth three times daily for 90 days. Current Facility-Administered Medications Medication Dose Route Frequency perflutren lipid microspheres 1.3 mL in NaCl (PF) 0.9% 10 mL injection (DEFINITY) INTRAVENOUS DIRECTED PRN sodium chloride 0.9 % (flush) 10 mL (BD POSIFLUSH) 10 mL INTRAVENOUS DIRECTED PRN PHYSICAL EXAM: BP 100/45 Pulse 85 Ht 5' 7 (1.70m) Wt 238 lb (108.0kg) LMP 10/11/2021 BMI 37.27 kg/(m^2). General Appearance: Well appearing, alert, in no acute distress, well-hydrated, well nourished. Skin: Negative for jaundice or pallor. Lungs: Normal respirations Breast: Bilateral mastectomy incisions are well approximated healing well without evidence of infection or fluid collection. CLARENCE drains removed without difficulty and sterile dry dressings were applied. Axilla: Musculoskeletal: No soft tissue edema; calves non tender Data Reviewed: Op and path findings ASSESSMENT/PLAN: 1. Aftercare following surgery - ICD9: V58.89, ICD10: Z48.89 (primary diagnosis) -46-year-old female doing well status post bilateral mastectomy for bilateral breast cancer with right sentinel lymph node biopsy and left sentinel lymph node biopsy followed by axillary dissection. -Her CLARENCE drains are removed and she is advised on wound care and activity -She will follow-up in 2 weeks or sooner if needed. -She plans on following up with her oncologist in the next 2 weeks as well, and will discuss whether radiation therapy is warranted. Garry Santos MD I verified the biomedical scientist/nurse documentation in the medical record, and made appropriate changes. I personally performed a history, physical exam and medical decision making. Garry Santos MD documented in this encounterSt. [facility] [facility]22 NoteHNO ID: [id number] Author: Ben Spencer MD Service: ? Author Type: Physician Type: Anesthesia Procedure Notes Filed: 01/26/2022 4:34 PM Note Text: ANESTHESIOLOGY PROCEDURE NOTE Peripheral Nerve Block General Information Procedure Start Time/Medication Administration: 01/26/2022 1:30 PM Patient location during procedure: OR Timeout Performed Pre-procedure: timeout performed Consent Obtained: Yes Patient identity confirmed: arm band Reason for block: post-op pain management/at surgeon's request Staffing Anesthesiologist: Ben Spencer MD Performed by: anesthesiologist Preparation Sterility Preparation: hand hygiene performed prior to procedure, surgical cap used, mask used, skin prep agent completely dried prior to procedure Site Prep: Chloraprep Procedure Details Patient Position: supine Monitoring: Pulse OX, EKG and NIBP Block Type Trunk: PECS I block and PECS II block Laterality: bilateral Injection Technique: single-shot Ultrasound Guided: Yes Image in Chart: no Needle Needle Type: blunt Needle Gauge: 21 G Needle Length: 110 mm Needle Localization: ultrasound Assessment Injection assessment: negative aspiration and incremental injection Medications Administered ropivacaine (PF) 5 mg/mL (0.5 %) injection (NAROPIN) - peripheral nerve block 40 mL - 01/26/2022 1:30:00 PM Comments 20 ml ropivacaine to each side SIGNATURE: Ben Spencer MD PATIENT NAME: Trsih Gilliland DATE: January 26, 2022 TIME: 4:33 PM CSN: [id number]. [facility] NoteHNO ID: [id number] Author: Chemo Wilder APRN.HOT BLAST WORKER Service: Anesthesiology Author Type: Nurse Prosthetic Technician Type: Anesthesia Procedure Notes Filed: 01/26/2022 1:46 PM Note Text: ANESTHESIOLOGY PROCEDURE NOTE Airway General Information Procedure Start Time/Medication Administration: 01/26/2022 1:16 PM Patient location during procedure: OR Timeout Performed Pre-procedure: timeout performed Consent Obtained: Yes Patient identity confirmed: arm band Staffing HOT BLAST WORKER: Chemo Wilder APRN.HOT BLAST WORKER Indications and Patient Condition Indications for airway management: anesthesia Preoxygenated: yes anesthesia circuit Patient position: sniffing Method: asleep Cricoid Pressure: Yes Manual In-Line Stabilization: No Difficult Mask: No Final Airway Details Final airway type: endotracheal airway Final Endotracheal Airway: ETT Cuffed: yes Successful intubation technique: direct laryngoscopy Devices used: intubating stylet Blade: Katrin Blade size: #3 ETT size (mm): 7.0 Measured from: gums Measurement (cm): 21 Placement verified by: chest auscultation Cormack-Lehane Classification: grade I - full view of glottis Number of attempts at approach: 1 Failed airway: no Unrecognized esophageal intubation: no Airway not difficult SIGNATURE: Chemo Wilder APRN.HOT BLAST WORKER PATIENT NAME: Trish Gilliland DATE: January 26, 2022 TIME: 1:45 PM CSN: [id number]. [facility]-10-[facility] History and physical note* Becca Wells APRN.DISPLAYER - 01/19/2022 1:40 PM EDT HISTORY AND PHYSICAL EXAMINATION SERVICE DATE: 01/19/2022 SERVICE TIME: 1:53 PM PRIMARY CARE PHYSICIAN: Jeanine Caceres MD, MD REASON FOR VISIT: Trish Gilliland is a 46 year old female who is scheduled for Procedure(s) with comments: MASTECTOMY SIMPLE BILATERAL (Bilateral) - ERAS PROTOCOL, PEC BLOCK PLACEMENT OF BREAST LOCALIZATION DEVICE(S) PERCUTANEOUS; FIRST LESION, ULTRASOUND GUIDANCE FORREST FISHER LOBSTER (Bilateral) BIOPSY BREAST SENTINEL NODE (Bilateral) BIOPSY BREAST WITH FROZEN SECTIONS (Bilateral) INJECTION PROCEDURE RADIOACTIVE TRACER FOR IDENTIFICATION OF SENTINEL NODE (Bilateral) INTRAOPERATIVE ID OF SENTINEL LYMPH NODE(S) INCL'D INJECTION OF NON-RAD DYE WHEN PERFORMED (Bilateral) LYMPHADENECTOMY AXILLARY COMPLETE (Left) EXCISION LEFT AXILLARY SOFT TISSUE MASS (Left) MASTECTOMY SIMPLE BILATERAL (Bilateral) at the request of Dr. Garry Santos for routine H&P. My final recommendation will be communicated back to the requesting physician by way of shared medical record or letter. Subjective The patient has the following: ACTIVE PROBLEM LIST Calculus of Gallbladder Without Mention of Cholecystitis Or Obstruction Bilateral Malignant Neoplasm of Breast in Female (Hcc) Malignant Neoplasm of Overlapping Sites of Both Breasts in Female, Estrogen Receptor Positive (Hcc) Malignant Neoplasm of Upper-Outer Quadrant of Left Breast in Female, Estrogen Receptor Positive (Hcc) COVID-19 Immunization Status Overdue - COVID-19 VACCINE (1) Overdue - never done No completion, postpone, frequency change, or communication history exists for this topic. CHIEF COMPLAINT: pre-op exam HPI: Trish is a 46 year old female who presents for presurgical testing. She was diagnosed with bilateral breast cancer in June of this year. She has been undergoing chemotherapy and her last treatment was in October. She was referred to the breast surgeon, discussed options and is agreeable to surgical intervention. REVIEW OF SYSTEMS: General: No weight loss, malaise or fevers. Neurological: Positive for: peripheral neuropathy. Negative for: headaches, seizures and strokes. Respiratory: Negative for: asthma, COPD, current cough, dyspnea, tobacco use and obstructive sleep apnea. Cardiovascular: Negative for: anticoagulation therapy, arrhythmia, atrial fibrillation, CAD, chest pain, CHF, DVT/PE, hyperlipidemia and hypertension. GI: Negative for: abdominal pain, dysphagia, nausea and vomiting. : Negative for: frequent urination, hematuria and urgency. Endocrine: Negative for: diabetes mellitus, hyperthyroidism, hypothyroidism and hyperparathyroidism. Hematology: Negative for: anemia, bruises/bleeds easily and chronic anti- coagulation/platelet meds. Oncology: See HPI. No history of CA metastasis, chemo within 30 days, or radiotherapy within 90 days. No history of oncological symptoms or problems. Psych: Negative for: anxiety and depression. Musculoskeletal: Positive for: joint pain (right elbow). Skin: Negative for lesions, rash and itching. 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, left (HCC) 06/18/2021 dx at [facility] by Dr.Anthony Jacquie Mendez (spontaneous vaginal delivery) 2000, 2003 PAST SURGICAL HISTORY Procedure Laterality Date BREAST BIOPSY HX Bilateral 06/16/2021 BIlateral breast cancer LAPS SURG CHOLECYSTECTOMY W/CHOLANGIOGRAPHY 08/04/2009 Normal [facility] PORT 06/2021 chest TONSILLECTOMY & ADENOIDECTOMY <AGE 11 FAMILY HISTORY Problem Relation Age of Onset Breast Cancer Maternal Grandmother Right mast, recurrance on right (age 52), at 53 Cervical Cancer Maternal Grandmother Dx 1963 Uterine Cancer Maternal Grandmother Skin Cancer Maternal Grandfather Skin Cancer Paternal Grandfather decsd from [place] Diabetes Son Skin Cancer Maternal Aunt Social History Tobacco Use Smoking status: Never Smokeless tobacco: Never Vaping Use Vaping Use: Never used Substance Use Topics Alcohol use: No Drug use: No Comment: no medical tc card Prior to Admission medications as of 01/19/22 1333 Medication Sig Last Dose Taking gabapentin (NEURONTIN) 300 mg capsule Take 1 capsule by mouth three times daily for 90 days. Yes acetaminophen (TYLENOL) 325 mg tablet Take 650 mg by mouth every 6 hours as needed. Taking Yes calcium carbonate/vitamin D3 (TOÑITO-600 WITH VITAMIN D ORAL) Take 1 tablet by mouth once daily. Taking Yes biotin 1 mg cap Take 1 mg by mouth once daily. lidocaine-prilocaine (EMLA) 2.5-2.5 % cream Apply to port site 60 minutes prior to accessing. No medication comments found. ALLERGIES Allergen Reactions Emend [Fosaprepitan* Shortness of Breath Penicillins Swelling Polysorbate 80 Shortness of Breath Taxol [Paclitaxel] Anaphylaxis Objective PHYSICAL EXAM: General: alert and oriented and healthy appearance. Pertinent negatives noted - not distressed. Skin: normal color, no rash or lesions. HEENT: EOM intact and pupils equal round. Cardiovascular: regular rate and rhythm, normal S1 and S2, no rub, murmurs, or gallop. Respiratory: normal breath sounds, no wheezes or crackles. No chest wall deformity or tenderness. Abdomen: bowel sounds present and soft. Pertinent negatives noted - not tender. Extremities: no deformity, no edema or tenderness, no joint swelling or clubbing. Neurological: normal cognition and motor skills. Gait normal. No weakness or sensory deficit. PAIN ASSESSMENT: VITALS: BP 117/73 Pulse 73 Temp 97.5 Resp 18 Ht 5' 7 (1.70m) Wt 250 lb 9.6 oz (113.7kg) SpO2 99% LMP 10/11/2021 BMI 39.24 kg/(m^2). Diagnostic tests reviewed for today's visit: Lab Value Units Date High Low HB 13.1 g/dL 12/07/2021 15.5 11.5 HB 12.4 g/dL 07/28/2021 15.5 11.5 HCT 39.6 % 12/07/2021 46.0 36.0 HCT 37.7 % 07/28/2021 46.0 36.0 WBC 5.30 k/uL 12/07/2021 11.00 3.70 WBC 8.99 k/uL 07/28/2021 11.00 3.70 PLT 306 k/uL 12/07/2021 400 150 PLT 226 k/uL 07/28/2021 400 150 NA 141 mmol/L 12/07/2021 144 136 NA 140 mmol/L 07/28/2021 144 136 K 4.0 mmol/L 12/07/2021 5.1 3.7 K 3.7 mmol/L 07/28/2021 5.1 3.7 GLUC 121 mg/dL 07/28/2021 99 74 GLUC 105 mg/dL 12/07/2021 99 74 BUN 12 mg/dL 12/07/2021 21 7 BUN 14 mg/dL 07/28/2021 21 7 CREAT 0.60 mg/dL 07/28/2021 0.96 0.58 CREAT 0.62 mg/dL 12/07/2021 0.96 0.58 PTSEC No results within date range. INR No results within date range. APTT No results within date range. ALT 35 U/L 12/07/2021 38 7 ALT 63 U/L 07/28/2021 38 7 AST 22 U/L 12/07/2021 35 13 AST 17 U/L 07/28/2021 35 13 TBILI 0.2 mg/dL 12/07/2021 1.3 0.2 TBILI <0.2 mg/dL 07/28/2021 1.3 0.2 TSH No results within date range. Lab Value Units Date High Low HCGQT No results within date range. UHCG No results within date range. HCG, BODY* No results within date range. Lab Value Units Date High Low ABORHD No results within date range. ABSCREEN No results within date range. No results found for: HBA1C No results found for this or any previous visit (from the past 8760 hour(s)). Recent Results (from the past 67370 hour(s)) ECHO Collection Time: 07/19/21 10:13 AM Impression CONCLUSIONS: - Exam indication: Baseline and serial evaluation in a patient undergoing therapy with cardiotoxic agents - The left ventricle is normal in size. Left ventricular systolic function is normal. EF = 67 5% (2D biplane) Normal left ventricular diastolic function. - The right ventricle is normal in size. Right ventricular systolic function is normal. - There are no significant valvular abnormalities. - The patient has not had a prior CC echocardiographic exam for comparison. * * * Final * * * Assessment No problem-specific Assessment & Plan notes found for this encounter. [place] Activity Status Index: METS: Climb a flight of stairs or walk up a hill (5.50 METs) DASI Score: 5.5 Patient denies any chest pain or undue shortness of breath with the above physical activity. ARISCAT Score: Age: <=50 Preoperative SpO2: >=96% Respiratory infection in the last month: No Preoperative anemia: No Surgical incision: peripheral Duration of surgery: >3 hrs Emergency procedure: No ARISCAT Score: 23 ANESTHESIA FINDINGS: Intubation History: No history of difficult intubation Significant Anesthesia Considerations: none Airway History: No history of difficult airway I - PHYSICAL EVALUATION DENTAL Normal dental observations. Dental findings: teeth intact and chipped. II - ANESTHESIA PLAN Prepared for Surgery: optimally prepared for surgery. CONSULTS: Patient does not require consults for optimization at this time Planned Anesthetic: The Following Tests/Procedures Have Been Initiated: Orders Placed This Encounter biotin 1 mg cap Sig: Take 1 mg by mouth once daily. Implantable Devices: right chest port There is no known pertinent medical condition which may affect nicolasa-operative course Assessment/Plan PLAN Diagnosis: Procedure Diagnosis: 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, estrogenreceptor positive (HCC) [C50.411, Z17.0, C50.412]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, estrogen receptor positive (HCC) [C50.811, C50.812, Z17.0] Planned Procedure: Procedure(s) with comments: MASTECTOMY SIMPLE BILATERAL (Bilateral) - ERAS PROTOCOL, PEC BLOCK PLACEMENT OF BREAST LOCALIZATION DEVICE(S) PERCUTANEOUS; FIRST LESION, ULTRASOUND GUIDANCE FORREST FISHER LOBSTER (Bilateral) BIOPSY BREAST SENTINEL NODE (Bilateral) BIOPSY BREAST WITH FROZEN SECTIONS (Bilateral) INJECTION PROCEDURE RADIOACTIVE TRACER FOR IDENTIFICATION OF SENTINEL NODE (Bilateral) INTRAOPERATIVE ID OF SENTINEL LYMPH NODE(S) INCL'D INJECTION OF NON-RAD DYE WHEN PERFORMED (Bilateral) LYMPHADENECTOMY AXILLARY COMPLETE (Left) EXCISION LEFT AXILLARY SOFT TISSUE MASS (Left) MASTECTOMY SIMPLE BILATERAL (Bilateral) The Following Tests/Procedures Have Been Initiated: No orders in epic per surgeon. Instructions Given to Patient: Instructions located in the after visit summary. Patient given verbal and written preop instructions and voices comprehension and compliance. SIGNATURE: Becca Wells APRN.CNP PATIENT NAME: Trish Gilliland DATE: January 19, 2022 TIME: 8:30 AM PAGER/CONTACT #: documented in this encounterSt. [facility] Instructions* Patient Instructions* Becca Wells APRN.CNP - 01/19/2022 8:30 AM EDT PATIENT PREOPERATIVE INSTRUCTIONS Garry Santos MD has scheduled you for your procedure at this surgery center: [facility]: [phone], [address] [phone] Please read below carefully for your personalized instructions. Arrive at main entrance of hospital. Follow the sign to the blue elevators, the surgery welcome center will be on the left hand side. Date of Surgery:01/26/2022 Time of surgery:1220 pm Arrival Time for Surgery: 945 am for 1015 am sentinel node injection Please be aware that emergency situations arise, which may delay or change your surgical time. If this happens, we will notify you as soon as possible and regret any inconvenience. Dietary Restrictions: - No solid food after midnight. - You may have 12 ounces of clear liquids (water, clear juices such as apple juice or Gatorade, carbonated beverages) until 4 hours before scheduled surgery.- okay until 820 am Medications: AVS was given to patient and specific instructions for each medication reviewed. Please continue totake blood pressure medications including day of surgery. Any oral diabetic medications should be held day of surgery. If you are taking insulin please discuss with prescribing physician for pre op instructions. Blood Thinning Medications: - Stop NSAIDS (Ibuprofen, Advil, Aleve, Motrin, Celebrex, Mobic, naproxen, diclofenac, voltaren etc.) 7 days before surgery, as directed by your surgeon. - If you take any of the following blood thinners, please contact your surgeon and the physician who prescribes it for you in order to get perioperative instructions as soon as possible Blood thinners: Aspirin,Coumadin, Plavix, Eliquis, Pradaxa, Xarelto, Lovenox, Brilinta, Effient, Savaysa, etc. - Stop Vitamin E, fish oil, Ginko, Earlton's Wort, flax seed oil, multivitamins, CBD oil, marijuana and other over the counter herbals and dietary supplements 7 days before surgery. This would not apply to cancer patients who are prescribed Marinol or any other prescription form of marijuana or CBD. Please follow up with the provider that manages your diabetes on how to prepare you for surgery. If you are taking the following medications for Type 2 diabetes: Canagliflozin (INVOKANA), dapagliflozin (FARXIGA), and empagliflozin (JARDIANCE) should each be discontinued at least 3 days before scheduled surgery. Ertugliflozin (STEGLATRO) should be discontinued at least four days before scheduled surgery. Pain Medications: - You may take Tylenol (Acetaminophen) or any of your current prescribed pain medications that do not contain aspirin or NSAIDS as needed. Approved medications can be taken the morning of surgery with a sip of water. If you start any new medications after today's visit, please contact the surgeon's office. Important Reminders: - If you use CPAP/BIPAP, bring the machine with you to the surgery center. - If you are prescribed inhalers for breathing, continue using them AND bring them to the surgery center. - Candy, mints, gum and tobacco products are NOT permitted the morning of surgery. - Hearing aids, dentures and glasses may be worn the morning of surgery. - NO jewelry, body piercings, makeup, hairpins or contacts are to be worn the day of surgery. - NO lotion, creams, powders or deodorants on the skin the day of surgery - You will need to have someone else (Family or friend) drive you home once discharged from the hospital. You cannot take a cab or Uber. You are not allowed to drive yourself home after surgery. -If you have a stimulator, implant or pump that requires a remote please bring the remote with you day of surgery. - testing Anesthesia requires testing on all females under the age of 55 without history of tubal ligation or hysterectomy. - If you are scheduled for a COVID vaccine please make sure it is atleast 72 hours before your scheduled surgery. If you develop symptoms such as a fever, cold, or flu, or have other changes to your health within TWO DAYS of scheduled surgery or the morning of surgery, please contact the surgery center above. Please confirm with your surgeon's office if you need a COVID test prior to your procedure. Currently we are allowing two visitors to accompany you prior to surgery. When you go into surgery your visitors will be able to go the the surgery [facility] if they have a mask on. You are allowed to have one visitor with you back in pre-op. Personal Belongings: - Leave ALL valuables and money at home or with family members. - You will need a form of ID and insurance card to check in the morning of surgery. - You will have to wear a hospital gown during your stay but if you wish to bring undergarments forafter surgery you may. Our anesthesia department recommends reading Prepare for Surgery, Heal Faster: A Guide of Mond-BodyTechniques by Sierra Burns prior to surgery. Becca Wells APRN.DISPLAYER documented in this encounterSt. Mary'[facility] Miscellaneous Notes* Telephone Encounter - Yaritza Siu Pss - 12/31/2021 9:20 AM EDT Scheduled and notified on my chart. * Telephone Encounter - Rachid Moore DO - 12/31/2021 6:46 AM EDT Please schedule her for OV/CBC/CMP with me end of January/beginning of March. Rachid Moore DO documented in this encounterSt. Mary'[facility]07-[facility] History of Present illness Narrative* SENG Major - 12/15/2021 11:37 AM EDT Social Work Problem Referral Note INFORMATION/REFERRAL : Trish Gilliland 46 year old female was referred by patient to [facility] for the following reason(s): Letter for employer PERSONS INTERVIEWED: patient INTERVENTION: Information & Referral Service Co-ordination Affect/Mood: The patient is noted as appropriate IDENTIFIED PROBLEMS/NEEDS: Continue to assess/collaborate Intervention/Referral to be provided:Arrangements made for continuity of care IMPRESSION/PLAN: SW met with patient on this day to get letter for employer regarding work restrictions due to continued symptoms. SW had this completed and reviewed/signed by physician. No other needs identified. F/U APPOINTMENT: PRN Assigned SW listed in Care Team tab: Yes SENG Major documented in this encounterSt. Mary'[facility]06-30-2022 NoteHNO ID: [id number] Author: Garry Santos MD Service: ? Author Type: Physician Type: Progress Notes Filed: 12/09/2021 5:37 PM Note Text: Chief Complaint: Patient presents with: Breast Cancer HISTORY OF PRESENT ILLNESS: Trish Gilliland is a 46 year old female who presents for an evaluation of bilateral breast cancer. Patient would like to have bilateral mastectomies and is not interested in reconstruction. Patient states she only could feel the mass in her left breast and states she can only feel it a small amount. Patient states the left lymph node is no longer swollen. 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, left (HCC) 06/18/2021 dx at [facility] by Dr.Anthony Jacquie Mendez PAST SURGICAL HISTORY Procedure Laterality Date - BREAST BIOPSY HX Bilateral 06/16/2021 BIlateral breast cancer - LAPS SURG CHOLECYSTECTOMY W/CHOLANGIOGRAPHY 08/04/2009 Normal [facility] Social History Tobacco Use - Smoking status: Never Smoker - Smokeless tobacco: Never Used Vaping Use - Vaping Use: Never used Substance Use Topics - Alcohol use: No - Drug use: No FAMILY HISTORY Problem Relation Age of Onset - Breast Cancer Maternal Grandmother Right mast, recurrance on right (age 52), at 53 - Cervical Cancer Maternal Grandmother Dx 1963 - Uterine Cancer Maternal Grandmother - Skin Cancer Maternal Grandfather - Skin Cancer Paternal Grandfather decsd from [place] - Diabetes Son - Skin Cancer Maternal Aunt ALLERGIES Allergen Reactions - Emend [Fosaprepitan* Shortness of Breath - Penicillins - Polysorbate 80 Shortness of Breath Current Outpatient Medications Medication Sig - acetaminophen (TYLENOL) 325 mg tablet Take 650 mg by mouth every 6 hours as needed. - lidocaine-prilocaine (EMLA) 2.5-2.5 % cream Apply to port site 60 minutes prior to accessing. - calcium carbonate/vitamin D3 (TOÑITO-600 WITH VITAMIN D ORAL) Take 1 tablet by mouth once daily. - gabapentin (NEURONTIN) 300 mg capsule Take 1 capsule by mouth three times daily for 90 days. (Patient not taking: Reported on 12/09/2021) Current Facility-Administered Medications Medication Dose Route Frequency - perflutren lipid microspheres 1.3 mL in NaCl (PF) 0.9% 10 mL injection (DEFINITY) INTRAVENOUS DIRECTED PRN - sodium chloride 0.9 % (flush) 10 mL (BD POSIFLUSH) 10 mL INTRAVENOUS DIRECTED PRN PHYSICAL EXAM: BP 141/63 Pulse 69 Ht 5' 7.5 (1.72m) Wt 246 lb (111.6kg) LMP 06/05/2021 BMI 37.94 kg/(m2). General Appearance: Well appearing, alert, in no acute distress, well-hydrated, well nourished. Skin: Negative for jaundice or pallor. Lungs: Normal respirations Musculoskeletal: No soft tissue edema with normal range of motion Breast Exam: Right No palpable masses, only diffuse fibrocystic changes without nipple discharge or axillary adenopathy Left 1.5 cm mass at 12:00 at areola skin junction, significantly decreased from prechemo therapy. There is no nipple discharge or additional masses. No palpable axillary adenopathy. There is a fullness in the left axilla consistent with soft tissue such as a lipoma or accessory breast tissue measuring approximately 3 x 4 cm. The Forrest slab lifting engineer located in the left axilla is functional just lateral to the left pectoralis in the level 1 axilla.. Data Reviewed: 1. prebiopsy breast imaging 2. Postbiopsy breast imaging 3. Recent MRI report and imaging ASSESSMENT/PLAN: 1. 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, estrogen receptor positive (HCC) - ICD9: 174.4, V86.0, ICD10: C50.411, Z17.0, C50.412 (primary diagnosis) -The patient has decided to proceed with bilateral mastectomy without reconstruction. She declines reconstruction at this time. We will proceed with bilateral sentinel lymph node biopsy with frozen section on the left side, possible axillary dissection. She also has the accessory tissue in the left axilla which we may be able to remove at the time through the mastectomy incision per her request.Risks, benefits, options and potential complications of modified radical mastectomy including risk of myocardial infarction, stroke, pulmonary embolism, DVT, infection, bleeding, seroma formation, nerve injury, and early or delayed lymphedema are reviewed in detail with the patient and all questions are answered. We discussed pre-and postoperative care in detail. - NM INJ SENTINEL NODE BREAST RT - NM INJ SENTINEL NODE BREAST LT - LIDOCAINE-PRILOCAINE 2.5 %-2.5 % TOPICAL CREAM Garry Santos MD Medical Decision Making: Problems: High: Illness/injury w/ threat to life/body function Data: Unique t (more content not included)...[facility] History of Present illness Narrative* Garry Santos MD - 12/09/2021 3:11 PM EDT Chief Complaint: Patient presents with: Breast Cancer HISTORY OF PRESENT ILLNESS: Trish Gilliland is a 46 year old female who presents for an evaluation of bilateral breastcancer. Patient would like to have bilateral mastectomies and is not interested in reconstruction. Patient states she only could feel the mass in her left breast and states she can only feel it a small amount. Patient states the left lymph node is no longer swollen. 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, left (HCC) 06/18/2021 dx at [facility] by Dr.Anthony Jacquie Mendez PAST SURGICAL HISTORY Procedure Laterality Date BREAST BIOPSY HX Bilateral 06/16/2021 BIlateral breast cancer LAPS SURG CHOLECYSTECTOMY W/CHOLANGIOGRAPHY 08/04/2009 Normal [facility] Social History Tobacco Use Smoking status: Never Smoker Smokeless tobacco: Never Used Vaping Use Vaping Use: Never used Substance Use Topics Alcohol use: No Drug use: No FAMILY HISTORY Problem Relation Age of Onset Breast Cancer Maternal Grandmother Right mast, recurrance on right (age 52), at 53 Cervical Cancer Maternal Grandmother Dx 1963 Uterine Cancer Maternal Grandmother Skin Cancer Maternal Grandfather Skin Cancer Paternal Grandfather decsd from [place] Diabetes Son Skin Cancer Maternal Aunt ALLERGIES Allergen Reactions Emend [Fosaprepitan* Shortness of Breath Penicillins Polysorbate 80 Shortness of Breath Current Outpatient Medications Medication Sig acetaminophen (TYLENOL) 325 mg tablet Take 650 mg by mouth every 6 hours as needed. lidocaine-prilocaine (EMLA) 2.5-2.5 % cream Apply to port site 60 minutes prior to accessing. calcium carbonate/vitamin D3 (TOÑITO-600 WITH VITAMIN D ORAL) Take 1 tablet by mouth once daily. gabapentin (NEURONTIN) 300 mg capsule Take 1 capsule by mouth three times daily for 90 days. (Patient not taking: Reported on 12/09/2021) Current Facility-Administered Medications Medication Dose Route Frequency perflutren lipid microspheres 1.3 mL in NaCl (PF) 0.9% 10 mL injection (DEFINITY) INTRAVENOUS DIRECTED PRN sodium chloride 0.9 % (flush) 10 mL (BD POSIFLUSH) 10 mL INTRAVENOUS DIRECTED PRN PHYSICAL EXAM: BP 141/63 Pulse 69 Ht 5' 7.5 (1.72m) Wt 246 lb (111.6kg) LMP 06/05/2021 BMI 37.94 kg/(m^2). General Appearance: Well appearing, alert, in no acute distress, well-hydrated, well nourished. Skin: Negative for jaundice or pallor. Lungs: Normal respirations Musculoskeletal: No soft tissue edema with normal range of motion Breast Exam: Right No palpable masses, only diffuse fibrocystic changes without nipple discharge or axillary adenopathy Left 1.5 cm mass at 12:00 at areola skin junction, significantly decreased from prechemo therapy. There is no nipple discharge or additional masses. No palpable axillary adenopathy. There is a fullness inthe left axilla consistent with soft tissue such as a lipoma or accessory breast tissue measuring approximately 3 x 4 cm. The Forrest slab lifting engineer located in the left axilla is functional just lateral to the left pectoralis in the level 1 axilla.. Data Reviewed: 1. prebiopsy breast imaging 2. Postbiopsy breast imaging 3. Recent MRI report and imaging ASSESSMENT/PLAN: 1. 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, estrogen receptor positive(HCC) - ICD9: 174.4, V86.0, ICD10: C50.411, Z17.0, C50.412 (primary diagnosis) -The patient has decided to proceed with bilateral mastectomy without reconstruction. She declines reconstruction at this time. We will proceed with bilateral sentinel lymph node biopsy with frozen section on the left side, possible axillary dissection. She also has the accessory tissue in the left axilla which we may be able to remove at the time through the mastectomy incision per her request.Risks, benefits, options and potential complications of modified radical mastectomy including risk ofmyocardial infarction, stroke, pulmonary embolism, DVT, infection, bleeding, seroma formation, nerve injury, and early or delayed lymphedema are reviewed in detail with the patient and all questions are answered. We discussed pre-and postoperative care in detail. - NM INJ SENTINEL NODE BREAST RT - NM INJ SENTINEL NODE BREAST LT - LIDOCAINE-PRILOCAINE 2.5 %-2.5 % TOPICAL CREAM Garry Santos MD Medical Decision Making: Problems: High: Illness/injury w/ threat to life/body function Data: Unique test result(s) reviewed: 3+ Unique test(s) ordered: 3+ Risk: High: Decision on elective major surgery w/ risk factors Medical Decision Making Level: 5 - High I verified the biomedical scientist/nurse documentation in the medical record, and made appropriate changes. I personally performed a history, physical exam and medical decision making. Garry Santos MD documented in this encounterSt. [facility] [facility] History of Present illness Narrative* Rachid Moore, DO - 12/07/2021 11:32 AM EDT Oncologic problem(s): 1) cT1c cN0 ER/CT positive (both greater than 95%, strong intensity) and HER2 negative, IHC 0 [id number] infiltrating ductal carcinoma of the RIGHT breast. 2) cT2 cN1 ER positive (greater than 95%, moderate intensity), CT positive (25%, low to moderate intensity) and HER2 negative with IHC 0 stage IIB infiltrating ductal carcinoma of the LEFT breast. HPI: The patient is a 46-year-old female with an unremarkable past medical history. Patient appreciated a mass in the left breast starting about 8 months prior to presentation. She eventually developed pain and presented to the emergency room where she underwent a CTA of the chest on 06/14/2021. That study demonstrated no evidence of pulmonary embolism. There was an enhancing left axillary lymph node measuring 2.4 x 1.7 x 1.4 cm and there was also an ill-defined 2.4 x 2.3 x 2.1 cm soft tissue mass in the left breast. Smaller nodular density measuring 1 cm was observed in the upper medial right breast. There was evidence of old granulomatous disease without further comment. Patient underwent diagnostic mammogram on 06/15/2021 2 x 2.3 cm irregular mass in the anterior upper central portion of the left breast was observed. Biopsy was strongly recommended. There was also evidence of a 1.2 x 1 cm irregular nodule in the anterior subareolar region of the left breast for which biopsy was also recommended. The impression was bilateral breast masses but no comment was made onthe right breast. Correlation with ultrasound the left axillary region was also recommended. Ultrasound of the right and left breasts was performed on 06/16/2021. Within the right breast there was a 7 x 7 x 7 mm ill-defined hypoechoic nodule with shadowing and increased blood flow at the 2 o'clock position of the breast at 5 cm from the nipple. There was a similar-appearing nodular density measuring 4 x 4 x 4 mm also observed at the 1 o'clock position of thebreast 3 cm from the nipple. The impression was that of 2 adjacent hypoechoic irregular solid nodule s at the 1 and 2 o'clock position of the breast as described. In the left breast there was a 2.7 x 3.5 x 2.3 cm irregular hypoechoic solid mass at the 12 o'clockposition of the breast 3 cm from the nipple. Increased vascularity was observed. Biopsy was recommended. There was also evidence of a prominent lymph node in the left axillary region measuring 1.3 x 0.9 x 0.4 cm. Biopsy was recommended. Underwent biopsy on 06/16/2021. Ultrasound-guided biopsy was obtained of the left axillary enlarged lymph node with clip marking. The left breast mass was also biopsied using a 14-gauge biopsy needle with several passes and clipping. The right breast was also imaged with ultrasound and 2 masses were identified. Under ultrasound guidance, both of these masses were biopsied and clips were placed intoeach of them. Pathology: -Core biopsy of the RIGHT breast mass at the 2 o'clock position demonstrated invasive ductal carcinoma, nuclear grade 1. -Core biopsy of the RIGHT breast mass at 2 o'clock position also revealed fragments of benign breast tissue with fibrosis and focal minimal intraductal hyperplasia without atypia negative for malignancy. -The LEFT breast core biopsy demonstrated invasive ductal carcinoma, nuclear grade 2 as well as ductal carcinoma in situ. -LEFT axillary lymph node core biopsy revealed metastatic carcinoma consistent with breast primary. The comment reads that the left breast core biopsy demonstrating ductal carcinoma revealed DCIS comprising about 70% of the total tumor volume with solid pattern and nuclear grade 2. Necrosis and calcifications were not observed. The entire specimen from the lymph node biopsy demonstrated tumor. No lymph node tissue was identified. It measured 1.2 cm in greatest length and was nuclear grade 2. The cancer specimen from the right breast was ER/CT positive (both greater than 95%, strong intensity) and HER2 negative, IHC 0 The left breast tumor was ER positive (greater than 95%, moderate intensity), CT positive (25%, lowto moderate intensity) and HER2 negative with IHC 0. MRI breasts 06/21/2021: Right breast: Breast tissue is scattered fibroglandular densities with minimal background enhancement. At the 2 o'clock position of the breast 4 cm behind the nipple and 5 cm above the nipple there were 2 irregular enhancing masses. The mass closest to the nipple measured 11 x 7 mm in diameter. Slightly above and more medial to this lesion was another smaller lesion measuring approximately 5 mm in diameter. Tissue clip artifact was noted medial to this superior lesion. Also of these lesions appeared to correspond to the ultrasound findings and were highly suspicious. Small axillary lymph nodes were noted none of which were pathologically enlarged. Left breast: There was a large enhancing mass at the 12 o'clock position 4.4 cm above the nipple and 4 cm behindthe nipple measuring 3.4 x 2.7 x 3.6 cm. This lesion corresponded to the mass shown on ultrasound. Enlarged lymph node in the left axillary region measured 2.6 x 2.2 x 2.3 cm highly suspicious for tumor involvement. No abnormality was visualized in the regions of the chest or liver. Impression overall was 2 enhancing lesions in the right breast and a large enhancing lesion in the left breast corresponding to theultrasound findings. Enlarged left axillary lymph node which was highly suspicious for tumor involvement. She was having pain in the tumor of the left breast. Menses were irregular. Two children. Two boys ages 21 and 18. . works at [employer]. Underwent CT scan of chest, abdomen pelvis and was found to have pathologic left axillary lymphadenopathy. Breast masses were observed in each breast with the left being much larger than the right. There were nonspecific mildly prominent right hilar lymph node sequela of old granulomatous exposure and scattered less than 5 mm pulmonary nodules. Previous therapy: 1) AC followed by T. Had severe infusion reaction with the first 3 doses of Taxol. Following that therapy was changed to Abraxane. Current therapy: Presents for ongoing oncologic management. Interim history: Neuropathy significantly better. Mild tingling balls of feet only now. Hasn't taken Lasix in weeks. PMH, medications and allergies personally reviewed by me today. Any changes documented in appropriate section. ROS: Constitutional: Denies episodes of fever and night sweats. Neuro: Denies GAMEZ, vertigo, dizziness and imbalance. HEENT: No recent change in voice, vision or hearing. Resp: Denies cough, wheeze and hemoptysis. CVS: Denies exertional chest pain, PND and orthopnea. GI: Denies dysgeusia. Denies symptoms of stomatitis. Denies dysphagia and odynophagia. Denies reflux, n/v, change in bowel habits and abdominal pain. : Denies dysuria or gross hematuria. No symptoms of bladder outlet obstruction. Endo: Denies hot flashes. Denies polyuria and polydipsia. Denies heat and cold intolerance. Derm: Denies rash. Denies jaundice and diffuse pruritis. Heme: Denies unusual bleeding and unexplained bruising. Psych: Normal mood. Family history: 1) MGM--breast cancer and cervix cancer. Diagnosed with breast cancer age 48. Had Radical mastectomy 1978. 5 of 22 nodes positive. of breast cancer age 52. Had hysterectomy 1962 for scc cervix. PHYSICAL EXAM: Vitals: Blood pressure 128/72, pulse 82, temperature 36.9 C (98.4 F), temperature source Temporal, weight 112.3 kg (247 lb 8 oz), last menstrual period 06/05/2021. Well-appearing and in no acute distress. EYES: Sclerae are anicteric bilaterally. LYMPHATIC: There is no palpable cervical or supraclavicular adenopathy. RESPIRATORY: Inspiratory breath sounds are of normal intensity in all boyer. No rales, wheezes or rhonchi. Expiratory phase is normal. CARDIOVASCULAR: Rhythm is regular. BREAST: Deferred today. ABDOMEN: The abdomen is nondistended. Extremities: No swelling or edema. SKIN: No jaundice or rash. No petechiae. 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 No focal motor weakness. Vibratory sense at the ankles intact bilaterally. LABS: Component Latest Ref Rng & Units 12/07/2021 WBC 3.70 - 11.00 k/uL 5.30 RBC 3.90 - 5.20 m/uL 4.45 Hemoglobin 11.5 - 15.5 g/dL 13.1 Hematocrit 36.0 - 46.0 % 39.6 MCV 80.0 - 100.0 fL 89.0 MCH 26.0 - 34.0 pg 29.4 MCHC 30.5 - 36.0 g/dL 33.1 RDW-CV 11.5 - 15.0 % 12.0 Platelet Count 150 - 400 k/uL 306 MPV 9.0 - 12.7 fL 8.9 (L) Neut% % 49.6 Abs Neut (ANC) 1.45 - 7.50 k/uL 2.63 Lymph% % 29.2 Abs Lymph 1.00 - 4.00 k/uL 1.55 Preston% % 9.1 Abs Preston <0.87 k/uL 0.48 Eosin% % 10.8 Abs Eosin <0.46 k/uL 0.57 (H) Baso% % 1.1 Abs Baso <0.11 k/uL 0.06 Immature Gran % % 0.2 IMMATURE GRANS (ABS) <0.10 k/uL <0.03 NRBC /100 WBC 0.0 Absolute nRBC <0.01 k/uL <0.01 DTYPE Auto ASSESSMENT/PLAN: (C50.412, Z17.0) Malignant neoplasm of upper-outer quadrant of left breast in female, estrogen receptor positive (HCC) (primary encounter diagnosis) Assessment: -cT1c cN0 ER/CT positive (both greater than 95%, strong intensity) and HER2 negative, IHC 0 stage 1A infiltrating ductal carcinoma of the RIGHT breast. -cT2 cN1 ER positive (greater than 95%, moderate intensity), CT positive (25%, low to moderate intensity), HER2 negative with IHC 0 stage IIB infiltrating ductal carcinoma of the LEFT breast. -CT scans revealed no evidence of metastatic disease but there were a few small subcentimeter pulmonary nodules that will require follow-up. -She has met with surgery and is definitely leaning towards bilateral mastectomy. -Response by exam following cycle #1. -Genetic testing negative. -Had radiation oncology consultation. 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 Tolerated much better at lower doseon a weekly basis. -Reviewed the results of the MRI. -Only lingering toxicity is very mild sensory neuropathy that has been improving rather rapidly. Plan: -Has surgical consultation 12/09. -She will let me know when surgery is scheduled so we can arrange follow-up. Portions of this documentation were copied and pasted from previous office visit notes in order to provide a cohesive continuity of the history. The note has been reviewed and edited and updated as necessary. During this patient visit I have spent approximately 15 minutes out of 20 in counseling regarding treatment options, medications and test results and coordinating care. Rachid Moore DO documented in this encounterSt. Mary'[facility] [facility]06[facility] History of Present illness Narrative* Liat Vidales RN - 12/07/2021 11:28 AM EDT CASE [id number] Genetic and inflammatory biomarkers in neuropathic pain secondary to chemotherapy (Genie-B) -a study in patients undergoing treatment for breast cancer. Informed Consent signed on: 08/25/2021 STUDY ID #: [id number] Patient presents today for her Visit 4. Met with patient for the above mentioned trial. Patient hascompleted all of her questionaires for Visit 4. Patients Labs were collected and sent via [facility] [employer]. All of the patient's questions were answered. Patient treatment changed over from WEEKLY PACLITAXEL X12 to Q21 day to AMB Abraxane q21D and she has completed treatment. Patient feels she is doing really really well and is going back to work next week. She hopes to see surgery 12/09/21 to discuss when she will have surgery. Vital signs, allergies and concomitant medications reviewed. ECOG/KPS =90. PE performed by Radha Mckeon M.D. on June. Patient's current therapy plan is AMB AC DOSE DENSE - DOXORUBICIN 60 CYCCLOPHOSPHAMIDE 600 D1-Q14D THEN WEEKLY PACLITAXEL X12. Taxol Protocol Start Date: 09/30 labs and visit 10/01 V2/Treatment Cycle1 of NEW TREATMENT 10/22 V3 Reduced Treatment at Abraxane 200 mg meter squared and administer once weekly for 5 weeks. Vitals: 12/07/2021 Weight 112.3 kg (247 lb 8 oz) BSA 0 BMI 0 Temp 36.9 C (98.4 F) Pulse 82 BP 128/72 Resp 16 Concomitant medication review: Yes and unchanged Current Outpatient Medications on File Prior to Visit Medication Sig Start/Stop Comment furosemide (LASIX) 20 mg tablet Take 1 tablet by mouth once daily. 08/25/2021 / 11/15/2021 OLANZapine (ZYPREXA) 10 mg tablet Take 1 tablet by mouth daily at bedtime. for 4 nights beginning the night of chemotherapy treatment. 08/04/2021 / 11/26/2021 omeprazole (PRILOSEC) 40 mg capsule Take 1 capsule by mouth once daily. 07/28/2021 / 11/26/2021 lidocaine-prilocaine (EMLA) 2.5-2.5 % cream Apply to port site 60 minutes prior to accessing. 07/09/2021 promethazine (PHENERGAN) 25 mg tablet Take 1 tablet by mouth every 6 hours as needed. FOR NAUSEA 07/04/2021 / 11/26/2021 dexAMETHasone (DECADRON) 4 mg tablet Take 1 tablet by mouth twice daily with meals. on the second, third and fourth day after each chemotherapy treatment. 07/04/2021 / 11/26/2021 Tylenol 500mg Take 500 mg (1-2 tablets) by mouth every 6-8 hours as needed. calcium carbonate/vitamin D3 (TOÑITO-600 WITH VITAMIN D ORAL) Take 1 tablet by mouth once daily. ibuprofen (MOTRIN) 200 mg tablet Take 400 mg by mouth every 8 hours as needed. 09/08/2021 Stopped Prednisone (Deltasone) 20 mg Take 1 tablet the evening prior to the morning of each chemotherapy treatment 10/21/2021 / 11/26/2021 Gabapentin (Neurontin) 300 mg Take 1 capsule by mouth three times daily for 90 days 10/13/2021 / 11/26/2021 Current Facility-Administered Medications on File Prior to Visit Medication perflutren lipid microspheres 1.3 mL in NaCl (PF) 0.9% 10 mL injection (DEFINITY) sodium chloride 0.9 % (flush) 10 mL (BD POSIFLUSH) Pertinent denials: 1. Inability or unwillingness to provide Informed Consent - denies, admits to 2. Patients receiving other adjuvant chemotherapies that may have neuropathy as side effects. Examples include: Cisplatin, FOLFOX, Vincristine, Vinblastine, Vinorelbine, Eribulin, Ixabepilone. - denies 3. Opioid use (more than 3 doses in the 7 days prior to enrollment). If opioid use is initiated during the study it will be recorded and the patient may continue participation.- denies 4. Daily use of NSAIDs for the 4 weeks prior to study enrollment. Intermittent use of no more than 5 doses per week for pain such as headache or muscle ache is allowed. Low dose aspirin (81 mg QD) is allowed and should be continued as indicated.- denies 5. Chronic steroid therapy (eg. Greater than a physiological replacement dose of prednisone 10mg QD) for the management of inflammatory conditions (eg. Arthritis, asthma or IBD). Intranasal steroids are acceptable.- denies 6. Febrile illness within 2 weeks prior to enrollment - denies 7. Patients with neuropathic pain syndrome (eg. Diabetic neuropathy, post-herpetic neuralgia, complex regional pain syndrome) diagnosed prior to study entry on review of the patient s medical record or self-reported by the patient.- denies 8. Any other diagnosis, both physical or psychological, or physical exam finding that in the opinion of the traffic investigator precludes participation.- denies Patient meets all Criteria for Study Participation: Yes Study includes the following: Allowing a research blood draw. Does Patient Consent to Optional Studies? -Your sample(s) and/or data may be stored and used for research about other health problems. Yes -Your samples and/or data, without identifying information, may be shared with other investigators/groups and/or [facility] repositories. Yes -Please check below to indicate your preferences regarding the optional agreement to receive e-mailcorrespondence for questionnaire completion prior to study visits. Yes The patient knows to RTC in 3 months. The plan is to have the patient to complete the Visit 5 questionnaires, labs, and treatment visit requirements at her next OV. Patient understands to call the office sooner if needed and has my contact information for any additional questions regarding the study. DREW Stephen, RN Clinical Research Nurse [phone] documented in this encounterSt. Mary'[facility] [facility]06[facility]27-20[facility] Miscellaneous Notes* [facility] - Lottie Jacobs, RT(R) - 12/06/2021 9:00 AM EDT Radiology Service Progress Note DATE OF SERVICE: December 06, 2021 TIME: 10:03 AM PATIENT IDENTITY VERIFICATION COMPLETED USING TWO (2) STANDARD IDENTIFIERS: Name and Date of confirmed by patient verbally and Name and Date of confirmed by identification band. FALL SCREENING: Has the patient had 2 falls in the last year or 1 fall with injury or currently using an Ambulatory Assistive Device (Walker, Cane, Wheelchair, Crutches, etc.)? No PATIENT GENDER DATA: Female. status: : No status: NO. PATIENT RELEVANT IMPLANT DATA REVIEWED: Not Applicable ALLERGIES: Reviewed and unchanged CONTRAST ALLERGY: NO. EXAM: MRI - CONTRAST TYPE: GROUP II PERIPHERAL IV DATA: Ambulatory: A peripheral IV was started in the Right antecubital site with a Angio cath: 22 gauge. RADIOLOGY DEPARTMENT: MR; Exam(s) Completed: Chest: Breast SIGNATURE: RT Richelle(R) PATIENT NAME: Trish Gilliland DATE: December 06, 2021 TIME: 10:03 AM documented in this encounterSt. Mary'[facility] [facility]06[facility] History of Present illness Narrative* SENG Major - 11/30/2021 2:19 PM EDT SOCIAL WORK FOLLOW UP NOTE: [facility] Date of service: November 30, 2021 Trish Gilliland is being seen for a follow up social work visit. Today's visit includes: patient TOPICS ADDRESSED: Finances; SW had physician review paperwork and sign. Patient picked up along with copies of paperwork that was sent to [facility] on 11/12. SW re- faxed this paperwork since patient states she is unsure if they received it. Copy also given to patient. Patient denies other needs. PLAN: Communicate pertinent medical/psychosocial information to [facility] team F/U APPOINTMENT: PRN Assigned KIERAN listed in Care Team tab: Yes SENG Major documented in this encounterSt. Mary'[facility] [facility]06-20-2022 History of Present illness Narrative* SENG Major - 11/29/2021 4:46 PM EDT Social Work Problem Referral Note INFORMATION/REFERRAL : Trish Gilliland 46 year old female was referred by patient to [facility] Work for the following reason(s): paperwork PERSONS INTERVIEWED: patient INTERVENTION: Information & Referral Service Co-ordination Affect/Mood: The patient is noted as appropriate IDENTIFIED PROBLEMS/NEEDS: Continue to assess/collaborate Intervention/Referral to be provided:Arrangements made for continuity of care IMPRESSION/PLAN:SW met with patient to discuss return to work needs. SW will have paperwork completed and reviewed/signed by physician. 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 Patient denies other needs. F/U APPOINTMENT: PRN Assigned KIERAN listed in Care Team tab: Yes SENG Major documented in this encounterSt. Mary'[facility] [facility]06-[facility]-20[facility] Miscellaneous Notes* Telephone Encounter - SENG Major - 11/12/2021 2:08 PM EDT Social Work Problem Referral Note INFORMATION/REFERRAL : Trish Gilliland 46 year old female was referred by Maurice to [facility] Work for the following reason(s): disability planning PERSONS INTERVIEWED: physician INTERVENTION: Team Meeting and Information & Referral Service Co-ordination Affect/Mood: The patient is noted as patient not present IDENTIFIED PROBLEMS/NEEDS: Continue to assess/collaborate Disability Intervention/Referral to be provided:Arrangements made for continuity of care IMPRESSION/PLAN: SW received fax from [place] regarding disability paperwork that needs completed. SW had this completed and reviewed/signed by physician. SW faxed to number provided. No other needs identified. F/U APPOINTMENT: PRN Assigned KIERAN listed in Care Team tab: Yes SENG Major documented in this encounterSt[facility] [facility] History of Present illness Narrative* Rachid Moore, - 11/11/2021 8:30 AM EDT Oncologic problem(s): 1) cT1c cN0 ER/CT positive (both greater than 95%, strong intensity) and HER2 negative, IHC 0 [id number] infiltrating ductal carcinoma of the RIGHT breast. 2) cT2 cN1 ER positive (greater than 95%, moderate intensity), CT positive (25%, low to moderate intensity) and HER2 negative with IHC 0 stage IIB infiltrating ductal carcinoma of the LEFT breast. HPI: The patient is a 46-year-old female with an unremarkable past medical history. Patient appreciated a mass in the left breast starting about 8 months prior to presentation. She eventually developed pain and presented to the emergency room where she underwent a CTA of the chest on 06/14/2021. That study demonstrated no evidence of pulmonary embolism. There was an enhancing left axillary lymph node measuring 2.4 x 1.7 x 1.4 cm and there was also an ill-defined 2.4 x 2.3 x 2.1 cm soft tissue mass in the left breast. Smaller nodular density measuring 1 cm was observed in the upper medial right breast. There was evidence of old granulomatous disease without further comment. Patient underwent diagnostic mammogram on 06/15/2021 2 x 2.3 cm irregular mass in the anterior upper central portion of the left breast was observed. Biopsy was strongly recommended. There was also evidence of a 1.2 x 1 cm irregular nodule in the anterior subareolar region of the left breast for which biopsy was also recommended. The impression was bilateral breast masses but no comment was made onthe right breast. Correlation with ultrasound the left axillary region was also recommended. Ultrasound of the right and left breasts was performed on 06/16/2021. Within the right breast there was a 7 x 7 x 7 mm ill-defined hypoechoic nodule with shadowing and increased blood flow at the 2 o'clock position of the breast at 5 cm from the nipple. There was a similar-appearing nodular density measuring 4 x 4 x 4 mm also observed at the 1 o'clock position of thebreast 3 cm from the nipple. The impression was that of 2 adjacent hypoechoic irregular solid nodule s at the 1 and 2 o'clock position of the breast as described. In the left breast there was a 2.7 x 3.5 x 2.3 cm irregular hypoechoic solid mass at the 12 o'clockposition of the breast 3 cm from the nipple. Increased vascularity was observed. Biopsy was recommended. There was also evidence of a prominent lymph node in the left axillary region measuring 1.3 x 0.9 x 0.4 cm. Biopsy was recommended. Underwent biopsy on 06/16/2021. Ultrasound-guided biopsy was obtained of the left axillary enlarged lymph node with clip marking. The left breast mass was also biopsied using a 14-gauge biopsy needle with several passes and clipping. The right breast was also imaged with ultrasound and 2 masses were identified. Under ultrasound guidance, both of these masses were biopsied and clips were placed intoeach of them. Pathology: -Core biopsy of the RIGHT breast mass at the 2 o'clock position demonstrated invasive ductal carcinoma, nuclear grade 1. -Core biopsy of the RIGHT breast mass at 2 o'clock position also revealed fragments of benign breast tissue with fibrosis and focal minimal intraductal hyperplasia without atypia negative for malignancy. -The LEFT breast core biopsy demonstrated invasive ductal carcinoma, nuclear grade 2 as well as ductal carcinoma in situ. -LEFT axillary lymph node core biopsy revealed metastatic carcinoma consistent with breast primary. The comment reads that the left breast core biopsy demonstrating ductal carcinoma revealed DCIS comprising about 70% of the total tumor volume with solid pattern and nuclear grade 2. Necrosis and calcifications were not observed. The entire specimen from the lymph node biopsy demonstrated tumor. No lymph node tissue was identified. It measured 1.2 cm in greatest length and was nuclear grade 2. The cancer specimen from the right breast was ER/CT positive (both greater than 95%, strong intensity) and HER2 negative, IHC 0 The left breast tumor was ER positive (greater than 95%, moderate intensity), CT positive (25%, lowto moderate intensity) and HER2 negative with IHC 0. MRI breasts 06/21/2021: Right breast: Breast tissue is scattered fibroglandular densities with minimal background enhancement. At the 2 o'clock position of the breast 4 cm behind the nipple and 5 cm above the nipple there were 2 irregular enhancing masses. The mass closest to the nipple measured 11 x 7 mm in diameter. Slightly above and more medial to this lesion was another smaller lesion measuring approximately 5 mm in diameter. Tissue clip artifact was noted medial to this superior lesion. Also of these lesions appeared to correspond to the ultrasound findings and were highly suspicious. Small axillary lymph nodes were noted none of which were pathologically enlarged. Left breast: There was a large enhancing mass at the 12 o'clock position 4.4 cm above the nipple and 4 cm behindthe nipple measuring 3.4 x 2.7 x 3.6 cm. This lesion corresponded to the mass shown on ultrasound. Enlarged lymph node in the left axillary region measured 2.6 x 2.2 x 2.3 cm highly suspicious for tumor involvement. No abnormality was visualized in the regions of the chest or liver. Impression overall was 2 enhancing lesions in the right breast and a large enhancing lesion in the left breast corresponding to theultrasound findings. Enlarged left axillary lymph node which was highly suspicious for tumor involvement. She was having pain in the tumor of the left breast. Menses were irregular. Two children. Two boys ages 21 and 18. . works at [employer]. Underwent CT scan of chest, abdomen pelvis and was found to have pathologic left axillary lymphadenopathy. Breast masses were observed in each breast with the left being much larger than the right. There were nonspecific mildly prominent right hilar lymph node sequela of old granulomatous exposure and scattered less than 5 mm pulmonary nodules. Previous therapy: 1) AC followed by T. Had severe infusion reaction with the first 3 doses of Taxol. Following that therapy was changed to Abraxane. Current therapy: 1) Abraxane. Presents for ongoing oncologic management. Interim history: Tolerating Abraxane at lower weekly dose much better. Occasional tingle in the occipital area. Alsooccasional mild numbness across the balls of the feet. This is intermittent but she notices it morein the mornings. It does not persist. Otherwise she feels well. Mild fatigue. No other symptomatic side effect. She continues to use Lasix on an as-needed basis for occasional puffiness of the hands and ankles and feet. PMH, medications and allergies personally reviewed by me today. Any changes documented in appropriate section. ROS: Constitutional: Denies episodes of fever and night sweats. Neuro: Denies GAMEZ, vertigo, dizziness and imbalance. HEENT: No recent change in voice, vision or hearing. Resp: Denies cough, wheeze and hemoptysis. CVS: Denies exertional chest pain, PND and orthopnea. GI: Denies dysgeusia. Denies symptoms of stomatitis. Denies dysphagia and odynophagia. Denies reflux, n/v, change in bowel habits and abdominal pain. : Denies dysuria or gross hematuria. No symptoms of bladder outlet obstruction. Endo: Denies hot flashes. Denies polyuria and polydipsia. Denies heat and cold intolerance. Derm: Denies rash. Denies jaundice and diffuse pruritis. Heme: Denies unusual bleeding and unexplained bruising. Psych: Normal mood. Family history: 1) MGM--breast cancer and cervix cancer. Diagnosed with breast cancer age 48. Had Radical mastectomy 1978. 5 of 22 nodes positive. of breast cancer age 52. Had hysterectomy 1962 for scc cervix. PHYSICAL EXAM: Vitals: Blood pressure 127/67, pulse 91, temperature 36.8 C (98.2 F), weight 111.8 kg (246 lb 8 oz), last menstrual period 06/05/2021, SpO2 98 %. Well-appearing and in no acute distress. EYES: Sclerae are anicteric bilaterally. LYMPHATIC: There is no palpable cervical or supraclavicular adenopathy. RESPIRATORY: Inspiratory breath sounds are of normal intensity in all boyer. No rales, wheezes or rhonchi. Expiratory phase is normal. CARDIOVASCULAR: Rhythm is regular. 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 There is still an approximate 1-1/2 cm area of firm nodularity in the central upper left breast. Not nearly as tender as it had been. No tenderness or adenopathy appreciated in left axilla. ABDOMEN: The abdomen is nondistended. Extremities: No swelling or edema. SKIN: No jaundice or rash. No petechiae. 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 No focal motor weakness. Vibratory sense at the ankles intact bilaterally. ASSESSMENT/PLAN: (C50.412, Z17.0) Malignant neoplasm of upper-outer quadrant of left breast in female, estrogen receptor positive (HCC) (primary encounter diagnosis) Assessment: -cT1c cN0 ER/CT positive (both greater than 95%, strong intensity) and HER2 negative, IHC 0 stage 1A infiltrating ductal carcinoma of the RIGHT breast. -cT2 cN1 ER positive (greater than 95%, moderate intensity), CT positive (25%, low to moderate intensity), HER2 negative with IHC 0 stage IIB infiltrating ductal carcinoma of the LEFT breast. -CT scans revealed no evidence of metastatic disease but there were a few small subcentimeter pulmonary nodules that will require follow-up. -She has met with surgery and is definitely leaning towards bilateral mastectomy. -Response by exam following cycle #1. -Genetic testing negative. -Had radiation oncology consultation. 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 Discussed administering at lower dose on a weekly basis for 5 more weeks to achieve the equivalent dose of paclitaxel. -Preliminary ANC today 1.14. Plan: -Cancel Abraxane tomorrow. -Recheck CBC 11/19. If ANC permits, she will receive chemotherapy and that will be the last planned dose. -Monitor CBC every week. -MRI and surgical consultation scheduled in 3 weeks. -Okay to use gabapentin on an as-needed basis. -Continue PPI. -Continue Lasix prn. Portions of this documentation were copied and pasted from previous office visit notes in order to provide a cohesive continuity of the history. The note has been reviewed and edited and updated as necessary. During this patient visit I have spent approximately 15 minutes out of 20 in counseling regarding treatment options, medications and test results and coordinating care. Rachid Moore DO documented in this encounterSt. [facility] [facility] History of Present illness Narrative* Mary Marin RN - 10/22/2021 10:32 AM EDT Assessment unchanged from Dr Moore office visit 10/21/21. documented in this encounterSt. [facility] [facility] History of Present illness Narrative* Rachid Moore DO - 10/21/2021 8:44 AM EDT Oncologic problem(s): 1) cT1c cN0 ER/CT positive (both greater than 95%, strong intensity) and HER2 negative, IHC 0 [id number] infiltrating ductal carcinoma of the RIGHT breast. 2) cT2 cN1 ER positive (greater than 95%, moderate intensity), CT positive (25%, low to moderate intensity) and HER2 negative with IHC 0 stage IIB infiltrating ductal carcinoma of the LEFT breast. HPI: The patient is a 46-year-old female with an unremarkable past medical history. Patient appreciated a mass in the left breast starting about 8 months prior to presentation. She eventually developed pain and presented to the emergency room where she underwent a CTA of the chest on 06/14/2021. That study demonstrated no evidence of pulmonary embolism. There was an enhancing left axillary lymph node measuring 2.4 x 1.7 x 1.4 cm and there was also an ill-defined 2.4 x 2.3 x 2.1 cm soft tissue mass in the left breast. Smaller nodular density measuring 1 cm was observed in the upper medial right breast. There was evidence of old granulomatous disease without further comment. Patient underwent diagnostic mammogram on 06/15/2021 2 x 2.3 cm irregular mass in the anterior upper central portion of the left breast was observed. Biopsy was strongly recommended. There was also evidence of a 1.2 x 1 cm irregular nodule in the anterior subareolar region of the left breast for which biopsy was also recommended. The impression was bilateral breast masses but no comment was made onthe right breast. Correlation with ultrasound the left axillary region was also recommended. Ultrasound of the right and left breasts was performed on 06/16/2021. Within the right breast there was a 7 x 7 x 7 mm ill-defined hypoechoic nodule with shadowing and increased blood flow at the 2 o'clock position of the breast at 5 cm from the nipple. There was a similar-appearing nodular density measuring 4 x 4 x 4 mm also observed at the 1 o'clock position of thebreast 3 cm from the nipple. The impression was that of 2 adjacent hypoechoic irregular solid nodule s at the 1 and 2 o'clock position of the breast as described. In the left breast there was a 2.7 x 3.5 x 2.3 cm irregular hypoechoic solid mass at the 12 o'clockposition of the breast 3 cm from the nipple. Increased vascularity was observed. Biopsy was recommended. There was also evidence of a prominent lymph node in the left axillary region measuring 1.3 x 0.9 x 0.4 cm. Biopsy was recommended. Underwent biopsy on 06/16/2021. Ultrasound-guided biopsy was obtained of the left axillary enlarged lymph node with clip marking. The left breast mass was also biopsied using a 14-gauge biopsy needle with several passes and clipping. The right breast was also imaged with ultrasound and 2 masses were identified. Under ultrasound guidance, both of these masses were biopsied and clips were placed intoeach of them. Pathology: -Core biopsy of the RIGHT breast mass at the 2 o'clock position demonstrated invasive ductal carcinoma, nuclear grade 1. -Core biopsy of the RIGHT breast mass at 2 o'clock position also revealed fragments of benign breast tissue with fibrosis and focal minimal intraductal hyperplasia without atypia negative for malignancy. -The LEFT breast core biopsy demonstrated invasive ductal carcinoma, nuclear grade 2 as well as ductal carcinoma in situ. -LEFT axillary lymph node core biopsy revealed metastatic carcinoma consistent with breast primary. The comment reads that the left breast core biopsy demonstrating ductal carcinoma revealed DCIS comprising about 70% of the total tumor volume with solid pattern and nuclear grade 2. Necrosis and calcifications were not observed. The entire specimen from the lymph node biopsy demonstrated tumor. No lymph node tissue was identified. It measured 1.2 cm in greatest length and was nuclear grade 2. The cancer specimen from the right breast was ER/CT positive (both greater than 95%, strong intensity) and HER2 negative, IHC 0 The left breast tumor was ER positive (greater than 95%, moderate intensity), CT positive (25%, lowto moderate intensity) and HER2 negative with IHC 0. MRI breasts 06/21/2021: Right breast: Breast tissue is scattered fibroglandular densities with minimal background enhancement. At the 2 o'clock position of the breast 4 cm behind the nipple and 5 cm above the nipple there were 2 irregular enhancing masses. The mass closest to the nipple measured 11 x 7 mm in diameter. Slightly above and more medial to this lesion was another smaller lesion measuring approximately 5 mm in diameter. Tissue clip artifact was noted medial to this superior lesion. Also of these lesions appeared to correspond to the ultrasound findings and were highly suspicious. Small axillary lymph nodes were noted none of which were pathologically enlarged. Left breast: There was a large enhancing mass at the 12 o'clock position 4.4 cm above the nipple and 4 cm behindthe nipple measuring 3.4 x 2.7 x 3.6 cm. This lesion corresponded to the mass shown on ultrasound. Enlarged lymph node in the left axillary region measured 2.6 x 2.2 x 2.3 cm highly suspicious for tumor involvement. No abnormality was visualized in the regions of the chest or liver. Impression overall was 2 enhancing lesions in the right breast and a large enhancing lesion in the left breast corresponding to theultrasound findings. Enlarged left axillary lymph node which was highly suspicious for tumor involvement. She was having pain in the tumor of the left breast. Menses were irregular. Two children. Two boys ages 21 and 18. . works at [employer]. Underwent CT scan of chest, abdomen pelvis and was found to have pathologic left axillary lymphadenopathy. Breast masses were observed in each breast with the left being much larger than the right. There were nonspecific mildly prominent right hilar lymph node sequela of old granulomatous exposure and scattered less than 5 mm pulmonary nodules. Previous therapy: 1) AC followed by T. Had severe infusion reaction with the first 3 doses of Taxol. Following that therapy was changed to Abraxane. Current therapy: 1) Abraxane. Presents for ongoing oncologic management. Interim history: She received the first infusion of Abraxane at 260 mg per metered square. She also received on pro.She had the onset of severe neuropathy manifested as neck and head pain and all over body pain thatwent on for several days. She got good relief from gabapentin and has no lingering symptoms of neuropathy at this time. She continues to use Lasix on an as-needed basis for occasional puffiness of the hands and ankles and feet. PMH, medications and allergies personally reviewed by me today. Any changes documented in appropriate section. ROS: Constitutional: Denies episodes of fever and night sweats. Neuro: Denies GAMEZ, vertigo, dizziness and imbalance. Denies symptoms of neuropathy. HEENT: No recent change in voice, vision or hearing. Resp: Denies cough, wheeze and hemoptysis. CVS: Denies exertional chest pain, PND and orthopnea. GI: Denies dysgeusia. Denies symptoms of stomatitis. Denies dysphagia and odynophagia. Denies reflux, n/v, change in bowel habits and abdominal pain. : Denies dysuria or gross hematuria. No symptoms of bladder outlet obstruction. Endo: Denies hot flashes. Denies polyuria and polydipsia. Denies heat and cold intolerance. Derm: Denies rash. Denies jaundice and diffuse pruritis. Heme: Denies unusual bleeding and unexplained bruising. Psych: Normal mood. Family history: 1) MGM--breast cancer and cervix cancer. Diagnosed with breast cancer age 48. Had Radical mastectomy 1978. 5 of 22 nodes positive. of breast cancer age 52. Had hysterectomy 1962 for scc cervix. PHYSICAL EXAM: Vitals: Blood pressure 140/80, pulse 90, temperature 36.9 C (98.4 F), weight 112 kg (247 lb), last menstrual period 06/05/2021, SpO2 99 %. Well-appearing and in no acute distress. EYES: Sclerae are anicteric bilaterally. LYMPHATIC: There is no palpable cervical or supraclavicular adenopathy. RESPIRATORY: Inspiratory breath sounds are of normal intensity in all boyer. No rales, wheezes or rhonchi. Expiratory phase is normal. CARDIOVASCULAR: Rhythm is regular. BREAST: Not examined today. ABDOMEN: The abdomen is nondistended. Extremities: No swelling or edema. SKIN: No jaundice or rash. No petechiae. 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 No focal motor weakness. Vibratory sense at the ankles intact bilaterally. ASSESSMENT/PLAN: (C50.412, Z17.0) Malignant neoplasm of upper-outer quadrant of left breast in female, estrogen receptor positive (HCC) (primary encounter diagnosis) Assessment: -cT1c cN0 ER/CT positive (both greater than 95%, strong intensity) and HER2 negative, IHC 0 stage 1A infiltrating ductal carcinoma of the RIGHT breast. -cT2 cN1 ER positive (greater than 95%, moderate intensity), CT positive (25%, low to moderate intensity), HER2 negative with IHC 0 stage IIB infiltrating ductal carcinoma of the LEFT breast. -CT scans revealed no evidence of metastatic disease but there were a few small subcentimeter pulmonary nodules that will require follow-up. -She has met with surgery and is definitely leaning towards bilateral mastectomy. -Response by exam following cycle #1. -Genetic testing negative. -Had radiation oncology consultation. 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 Discussed administering at lower dose on a weekly basis for 5 more weeks to achieve the equivalent dose of paclitaxel. Plan: -Dose decreased to Abraxane 200 mg meter squared and administer once weekly for 5 weeks. -Monitor CBC every week. -Office visit 11/11 with CBC/CMP. Last planned dose of Abraxane on 11/19. -Prednisone premed the night before and morning of each treatment. -Okay to use gabapentin on an as-needed basis. -Continue PPI. -Continue Lasix prn. -MRI when completes chemotherapy. Portions of this documentation were copied and pasted from previous office visit notes in order to provide a cohesive continuity of the history. The note has been reviewed and edited and updated as necessary. During this patient visit I have spent approximately 20 minutes out of 30 in counseling regarding treatment options, medications and test results and coordinating care. Rachid Moore DO documented in this encounterSt. [facility] [facility] History of Present illness Narrative* SENG Major - 10/21/2021 8:38 AM EDT Social Work Problem Referral Note INFORMATION/REFERRAL : Trish Gilliland 46 year old female was referred by [facility] to [facility] for the following reason(s): Jury duty and prior authorization PERSONS INTERVIEWED: patient INTERVENTION: Information & Referral Service Co-ordination Affect/Mood: The patient is noted as appropriate IDENTIFIED PROBLEMS/NEEDS: Continue to assess/collaborate Intervention/Referral to be provided:Arrangements made for continuity of care IMPRESSION/PLAN: Patient met with SW on this day to ask about a letter stating her chemotherapy medications were approved through October 01, 2022. Nursing staff aware and information is in chart. Patient also needs jury excuse letter since she will be in treatment during that time. F/U APPOINTMENT: PRN Assigned SW listed in Care Team tab: Yes SENG Major documented in this encounterSt. [facility] [facility]04[facility] Miscellaneous Notes* Telephone Encounter - Corrine Blackmon RN - 10/05/2021 12:47 PM EDT ONCOLOGY PATIENT EDUCATION NOTE TOPIC: Chemotherapy, Medications: Abraxane READINESS TO LEARN: COGNITIVE ABILITY: Alert and oriented MOTIVATION TO LEARN: Interested FAMILY SUPPORT: Unable to assess - Family not present INSTRUCTION PROVIDED TO: Patient INSTRUCTION PROVIDED BY: Nurse Coordinator PATIENT LEARNS BEST BY: Multiple Methods FACTORS AFFECTING LEARNING: None PHYSICAL LIMITATIONS AFFECTING LEARNING: None LEARNING RESPONSE DIAGNOSIS: Breast Cancer METHOD OF INSTRUCTION: Individual instruction Written instruction - handouts Verbal instruction PATIENT/FAMILY RESPONSE: Verbalizes understanding of: CHEMOTHERAPY-Regimen, toxicity and side effects FOLLOW UP PLAN: Patient instructed to call with any further issues Recommend - Recommend continued instruction and follow up as directed Follow up phone call. Contact information given. SUPPLEMENTAL MATERIAL: Written material was provided at this visit with the following information: - Chemotherapy education was provided by a pharmacist NO - Side effect management information was provided/discussed including but not limited to: abdominaldiscomfort, anemia, appetite changes, arthralgia, bowel habit changes, diet, electrolyte disturbances, fatigue, hair loss, infection, mouth hygiene, mucositis, myalgia, nausea/vomitting, peripheral neuropathy, rash, shortness of breath, skin changes, taste changes, thrombocytopenia YES - Provided important phone numbers and contacts during and after hours. YES - Provided information on symptoms that require immediate assistance. YES - Provided Chemotherapy when to call handouts YES - Preventing infection. YES - Treatment schedule and confirmation of appointment times. YES - Available support groups. YES - The importance of contraception during the course of chemotherapy YES - Neutropenic fever protocol discussed with patient, which included the importance of reporting anyfever of 100.4F (38.0C) or greater to the healthcare team as noted on the provided wallet card and/or magnet. YES Time Spent: 15 minutes REFERRAL (RECOMMENDATION): N/A Corrine Blackmon RN * Telephone Encounter - Corrine Blackmon RN - 10/05/2021 12:42 PM EDT CYCLE 1/DAY 1 POST TREATMENT CALL Today's date: October 05, 2021 Treatment Regimen: Abraxane C1D1 Date: 10/01/21 Called patient to follow-up on symptom management. Spoke with patient SYMPTOM ASSESSMENT Neuro: None CV/Resp: None GI/: Appetite: no changes in appetite, appetite fair, denies N/V. Patient stated on Monday she had constipation and on Monday she took miralax which resolved the issue. Integument: None Activity: Patient reported no changes in energy level, energy level fair Pain: a little bit in my knees, joint pain. Patient stated the pain is at a 5/10, yesterday it was 9/10. Patient stated she is ambulating without difficulty today. Fever: No Chills: No Patient stated on the second day, (Monday) she felt flu-like, chills, achy, and had bone aches, and constipation. Patient took mirlax on Monday and had a BM. Patient called in yesterday with c/o pain. Patient was prescribed gabapentin and is feeling much better today. Patient is ambulating without difficulty today. Patient advised to call our office if she has increased pain or pain not controlled with gabapentin. Any new referrals needed? No Reinforced CURRENT treatment education based on current and anticipated symptoms. Discussed port/line care and patient verbalizes understanding: Yes Patient instructed to contact office or after hours Hematology/Oncology fellow for: temperature ? 100.4; questions or concerns. Patient verbalized understanding of when to seek medical attention and after hours number protocol. Corrine Blackmon RN documented in this encounterSt. [facility] [facility] History of Present illness Narrative* Nancie Beckford RD - 09/30/2021 2:59 PM EDT Nutrition Therapy Reassessment This visit was performed via telehealth due to the COVID-19 epidemic as an effort to protect patients and minimize exposure. Consent from patient received to conduct visit via telehealth. This Team Access Model visit is a phone encounter. It required patient-provider interaction for the medical decision making as documented below. RECOMMENDED MALNUTRITION DIAGNOSIS: NO MALNUTRITION IDENTIFIED Reason for visit: Nutrition Counseling Nutrition Diagnosis: Increased nutrient needs (kcal, pro) related to physiological changes increasing nutrient utilization as evidenced by ca dx and treatment plan. Nutrition Intervention: Please read though introductory material provided. -Consider meal prepping prior to treatment. - aim for 5-6 small/frequent meals - incorporate lean sources of protein/plant based proteins at meals Aim for 110 gm protein daily. See handout for protein sources. - Stay well hydrated - sip on fluids throughout the day (48-64 oz). Educational materials provided: none this visit Nutrition Assessment Pt presents for nutrition counseling for breast ca. Pt is currently being treated with Doxorubicin,cyclophasphamide, paclitaxel. Pt denies any chewing/swallowing issues. Pt denies food allergies/intolerances. Subjective: Desires weight maintenance/weight loss. Has been gaining weight with steroids. Mild Nausea - prescription Prilosec is helping; Will take promethazine with further nausea. No Vomiting Some constipation uses Miralax Diet History (24hr recall): Breakfast - yogurt with medication; [employer] protien bar 16g Snack - [employer] protein bar Lunch - PB and J with sf pudding OR Leftovers Snack - fruits Dinner - stew/ spaghetti, etc Snack - crackers nips (out of the box) Beverages - Flavored water Nash, 2% milk Mocha coffee drink Hello Agent (16g sugar, 120 calories) Sits in front of TV eating in evening. Has treadmill - needs setup 09/30/21 Pt states that she started on Taxol and was having a reaction. Will start on alternative with one treatment every three weeks. States she currently has No nausea, no early satiety, no water retention. Treadmill has been setup - walked on treadmill a few times per week. Has Been preparing for treatment by having some small things on hand. Reviewed managing nausea and appetite changes rt chemotherapy and being adequately hydrated. Pt will contact me for further appointments as needed. Anthropometrics: HT/WT/BMI HEIGHT WEIGHT BODY MASS INDEX 06/24/2021 103.647 kg 06/28/2021 5' 7.25 102.513 kg 35.13 06/29/2021 5' 7.25 102.513 kg 35.13 07/02/2021 104.101 kg 35.68 07/16/2021 5' 7.244 102.513 kg 35.14 07/28/2021 106.822 kg 36.62 08/12/2021 108.636 kg 37.24 08/25/2021 108.41 kg 37.16 08/30/2021 5' 7.5 108.41 kg 36.88 09/09/2021 108.183 kg 36.8 09/17/2021 109.77 kg 37.34 09/30/2021 110.224 kg 37.5 09/30/2021 110.224 kg 37.5 Resting Metabolic Rate: 1762 Weight Loss: none Estimated Needs: Dosing Weight: 108.4 kg Estimated kilocalorie needs: 2168 kilocalories determined by 20 kcal/kg Estimated protein needs: 100-108 grams determined by 1.0-1.2 g/kg Dosing weight Estimated fluid needs: 2100 milliliters based on 1 mL per kcal Readiness to Learn Cognitive ability: Alert and oriented Motivation to learn: Eager Family support: Unable to assess - Family not present Instruction provided to: Patient Patient learns best by: Multiple Methods Factors affecting learning: None Physical limitations affecting learning: None NUTRITION FOCUSED PHYSICAL EXAM: Unable to perform exam due to patient unavailable, will re-attemptduring reassessment. Potential Signs of Inflammation: chronic condition Allergies: Emend [Fosaprepitant], Penicillins, and Polysorbate 80 Medications: Current Outpatient Medications Medication Sig Dispense Refill acetaminophen (TYLENOL) 325 mg tablet Take 650 mg by mouth every 6 hours as needed. predniSONE (DELTASONE) 20 mg tablet Take 1 tablet the evening prior to in the morning of chemotherapy the next time. 6 tablet 0 OLANZapine (ZYPREXA) 10 mg tablet Take 1 tablet by mouth daily at bedtime. for 4 nights beginning the night of chemotherapy treatment. 90 tablet 0 omeprazole (PRILOSEC) 40 mg capsule TAKE 1 CAPSULE BY MOUTH ONCE DAILY 30 capsule 2 furosemide (LASIX) 20 mg tablet TAKE 1 TABLET BY MOUTH EVERY DAY 30 tablet 0 lidocaine-prilocaine (EMLA) 2.5-2.5 % cream Apply to port site 60 minutes prior to accessing. 15 g 2 promethazine (PHENERGAN) 25 mg tablet Take 1 tablet by mouth every 6 hours as needed. FOR NAUSEA 30tablet 2 dexAMETHasone (DECADRON) 4 mg tablet Take 1 tablet by mouth twice daily with meals. on the second, third and fourth day after each chemotherapy treatment. 24 tablet 0 ibuprofen (MOTRIN) 200 mg tablet Take 400 mg by mouth every 8 hours as needed. (Patient not taking:Reported on 09/30/2021 ) calcium carbonate/vitamin D3 (TOÑITO-600 WITH VITAMIN D ORAL) Take 1 tablet by mouth once daily. Current Facility-Administered Medications Medication Dose Route Frequency Provider Last Rate Last Admin perflutren lipid microspheres 1.3 mL in NaCl (PF) 0.9% 10 mL injection (DEFINITY) INTRAVENOUS DIRECTED PRN Rachid Moore DO sodium chloride 0.9 % (flush) 10 mL (BD POSIFLUSH) 10 mL INTRAVENOUS DIRECTED PRN Rachid Moore DO (date of last encounter ): Nutrition Monitoring & Evaluation: PO intake Supplement tolerance Wt status Biochemical Markers Skin integrity Plan of care Patient met goal(s): Partially Need for Follow up: Will follow up in one month Referred/Supervised by: Dr. Moore Thank you for allowing me to participate in the care of this pt. MNT Billing Type: Re-assess/15 min 2 units Signed by: Nancie Custer, RD,LD documented in this encounterSt. [facility] [place] [facility]04[facility] History of Present illness Narrative* Liat Vidales RN - 09/30/2021 9:21 AM EDT CASE [id number] Genetic and inflammatory biomarkers in neuropathic pain secondary to chemotherapy (Genie-B) -a study in patients undergoing treatment for breast cancer. Informed Consent signed on: 08/25/2021 STUDY ID #: [id number] Patient presents today for her Visit 2. Met with patient for the above mentioned trial. Patient completed all of her questionaires for Visit 2 and Lab were collected. All of the patient's questions were answered. Patient treatment changed over from WEEKLY PACLITAXEL X12 to Q21 day to AMB Abraxane q21D. Called Arnulfo Alvarez on study team and confirmed patient could stay on with new treatment plan. Will monitor patients reaction tomorrow to treatment. Vital signs, allergies and concomitant medications reviewed. ECOG/KPS =90. PE performed by Radha Mckeon M.D. on June. Patient's current therapy plan is AMB AC DOSE DENSE - DOXORUBICIN 60 CYCCLOPHOSPHAMIDE 600 D1-Q14D THEN WEEKLY PACLITAXEL X12. Taxol Protocol Start Date: 09/30 labs and visit 10/01 V2/Treatment Cycle1 of NEW TREATMENT Vitals: 09/30/2021 Weight 110.2 kg (243 lb) BSA 0 BMI 0 Temp 36.9 C (98.4 F) Pulse 77 BP 117/71 Concomitant medication review: Yes and unchanged Current Outpatient Medications on File Prior to Visit Medication Sig Start/Stop Comment furosemide (LASIX) 20 mg tablet Take 1 tablet by mouth once daily. 08/25/2021 OLANZapine (ZYPREXA) 10 mg tablet Take 1 tablet by mouth daily at bedtime. for 4 nights beginning the night of chemotherapy treatment. 08/04/2021 omeprazole (PRILOSEC) 40 mg capsule Take 1 capsule by mouth once daily. 07/28/2021 lidocaine-prilocaine (EMLA) 2.5-2.5 % cream Apply to port site 60 minutes prior to accessing. 07/09/2021 promethazine (PHENERGAN) 25 mg tablet Take 1 tablet by mouth every 6 hours as needed. FOR NAUSEA 07/04/2021 dexAMETHasone (DECADRON) 4 mg tablet Take 1 tablet by mouth twice daily with meals. on the second, third and fourth day after each chemotherapy treatment. 07/04/2021 Tylenol 500mg Take 500 mg (1-2 tablets) by mouth every 6-8 hours as needed. calcium carbonate/vitamin D3 (TOÑITO-600 WITH VITAMIN D ORAL) Take 1 tablet by mouth once daily. ibuprofen (MOTRIN) 200 mg tablet Take 400 mg by mouth every 8 hours as needed. 09/08/2021 stopped Current Facility-Administered Medications on File Prior to Visit Medication perflutren lipid microspheres 1.3 mL in NaCl (PF) 0.9% 10 mL injection (DEFINITY) sodium chloride 0.9 % (flush) 10 mL (BD POSIFLUSH) Pertinent denials: 1. Inability or unwillingness to provide Informed Consent - denies, admits to 2. Patients receiving other adjuvant chemotherapies that may have neuropathy as side effects. Examples include: Cisplatin, FOLFOX, Vincristine, Vinblastine, Vinorelbine, Eribulin, Ixabepilone. - denies 3. Opioid use (more than 3 doses in the 7 days prior to enrollment). If opioid use is initiated during the study it will be recorded and the patient may continue participation.- denies 4. Daily use of NSAIDs for the 4 weeks prior to study enrollment. Intermittent use of no more than 5 doses per week for pain such as headache or muscle ache is allowed. Low dose aspirin (81 mg QD) is allowed and should be continued as indicated.- denies 5. Chronic steroid therapy (eg. Greater than a physiological replacement dose of prednisone 10mg QD) for the management of inflammatory conditions (eg. Arthritis, asthma or IBD). Intranasal steroids are acceptable.- denies 6. Febrile illness within 2 weeks prior to enrollment - denies 7. Patients with neuropathic pain syndrome (eg. Diabetic neuropathy, post-herpetic neuralgia, complex regional pain syndrome) diagnosed prior to study entry on review of the patient s medical record or self-reported by the patient.- denies 8. Any other diagnosis, both physical or psychological, or physical exam finding that in the opinion of the traffic investigator precludes participation.- denies Patient meets all Criteria for Study Participation: Yes Study includes the following: Allowing a research blood draw. Does Patient Consent to Optional Studies? -Your sample(s) and/or data may be stored and used for research about other health problems. Yes -Your samples and/or data, without identifying information, may be shared with other investigators/groups and/or NIH repositories. Yes -Please check below to indicate your preferences regarding the optional agreement to receive e-mailcorrespondence for questionnaire completion prior to study visits. Yes The patient knows to [facility] Sunday 10/01 for Cycle 1 of new treatment. The plan is to have the patientto complete the Visit 3 questionnaires, labs, and treatment visit requirements. Patient understandsto call the office sooner if needed and has my contact information for any additional questions regarding the study. Liat Vidales RN [phone] documented in this encounterSt. Mary'[facility] [place] [facility]04[facility]21[facility]20[facility] History of Present illness Narrative* Rachid Moore, - 09/30/2021 8:58 AM EDT Oncologic problem(s): 1) cT1c cN0 ER/CT positive (both greater than 95%, strong intensity) and HER2 negative, IHC 0 [id number] infiltrating ductal carcinoma of the RIGHT breast. 2) cT2 cN1 ER positive (greater than 95%, moderate intensity), CT positive (25%, low to moderate intensity) and HER2 negative with IHC 0 stage IIB infiltrating ductal carcinoma of the LEFT breast. HPI: The patient is a 46-year-old female with an unremarkable past medical history. Patient appreciated a mass in the left breast starting about 8 months prior to presentation. She eventually developed pain and presented to the emergency room where she underwent a CTA of the chest on 06/14/2021. That study demonstrated no evidence of pulmonary embolism. There was an enhancing left axillary lymph node measuring 2.4 x 1.7 x 1.4 cm and there was also an ill-defined 2.4 x 2.3 x 2.1 cm soft tissue mass in the left breast. Smaller nodular density measuring 1 cm was observed in the upper medial right breast. There was evidence of old granulomatous disease without further comment. Patient underwent diagnostic mammogram on 06/15/2021 2 x 2.3 cm irregular mass in the anterior upper central portion of the left breast was observed. Biopsy was strongly recommended. There was also evidence of a 1.2 x 1 cm irregular nodule in the anterior subareolar region of the left breast for which biopsy was also recommended. The impression was bilateral breast masses but no comment was made onthe right breast. Correlation with ultrasound the left axillary region was also recommended. Ultrasound of the right and left breasts was performed on 06/16/2021. Within the right breast there was a 7 x 7 x 7 mm ill-defined hypoechoic nodule with shadowing and increased blood flow at the 2 o'clock position of the breast at 5 cm from the nipple. There was a similar-appearing nodular density measuring 4 x 4 x 4 mm also observed at the 1 o'clock position of thebreast 3 cm from the nipple. The impression was that of 2 adjacent hypoechoic irregular solid nodule s at the 1 and 2 o'clock position of the breast as described. In the left breast there was a 2.7 x 3.5 x 2.3 cm irregular hypoechoic solid mass at the 12 o'clockposition of the breast 3 cm from the nipple. Increased vascularity was observed. Biopsy was recommended. There was also evidence of a prominent lymph node in the left axillary region measuring 1.3 x 0.9 x 0.4 cm. Biopsy was recommended. Underwent biopsy on 06/16/2021. Ultrasound-guided biopsy was obtained of the left axillary enlarged lymph node with clip marking. The left breast mass was also biopsied using a 14-gauge biopsy needle with several passes and clipping. The right breast was also imaged with ultrasound and 2 masses were identified. Under ultrasound guidance, both of these masses were biopsied and clips were placed intoeach of them. Pathology: -Core biopsy of the RIGHT breast mass at the 2 o'clock position demonstrated invasive ductal carcinoma, nuclear grade 1. -Core biopsy of the RIGHT breast mass at 2 o'clock position also revealed fragments of benign breast tissue with fibrosis and focal minimal intraductal hyperplasia without atypia negative for malignancy. -The LEFT breast core biopsy demonstrated invasive ductal carcinoma, nuclear grade 2 as well as ductal carcinoma in situ. -LEFT axillary lymph node core biopsy revealed metastatic carcinoma consistent with breast primary. The comment reads that the left breast core biopsy demonstrating ductal carcinoma revealed DCIS comprising about 70% of the total tumor volume with solid pattern and nuclear grade 2. Necrosis and calcifications were not observed. The entire specimen from the lymph node biopsy demonstrated tumor. No lymph node tissue was identified. It measured 1.2 cm in greatest length and was nuclear grade 2. The cancer specimen from the right breast was ER/CT positive (both greater than 95%, strong intensity) and HER2 negative, IHC 0 The left breast tumor was ER positive (greater than 95%, moderate intensity), CT positive (25%, lowto moderate intensity) and HER2 negative with IHC 0. MRI breasts 06/21/2021: Right breast: Breast tissue is scattered fibroglandular densities with minimal background enhancement. At the 2 o'clock position of the breast 4 cm behind the nipple and 5 cm above the nipple there were 2 irregular enhancing masses. The mass closest to the nipple measured 11 x 7 mm in diameter. Slightly above and more medial to this lesion was another smaller lesion measuring approximately 5 mm in diameter. Tissue clip artifact was noted medial to this superior lesion. Also of these lesions appeared to correspond to the ultrasound findings and were highly suspicious. Small axillary lymph nodes were noted none of which were pathologically enlarged. Left breast: There was a large enhancing mass at the 12 o'clock position 4.4 cm above the nipple and 4 cm behindthe nipple measuring 3.4 x 2.7 x 3.6 cm. This lesion corresponded to the mass shown on ultrasound. Enlarged lymph node in the left axillary region measured 2.6 x 2.2 x 2.3 cm highly suspicious for tumor involvement. No abnormality was visualized in the regions of the chest or liver. Impression overall was 2 enhancing lesions in the right breast and a large enhancing lesion in the left breast corresponding to theultrasound findings. Enlarged left axillary lymph node which was highly suspicious for tumor involvement. She has been having pain in the tumor of the left breast. Menses are irregular. Two children. Two boys ages 21 and 18. . works at [employer]. Underwent CT scan of chest, abdomen pelvis and was found to have pathologic left axillary lymphadenopathy. Breast masses were observed in each breast with the left being much larger than the right. There were nonspecific mildly prominent right hilar lymph node sequela of old granulomatous exposure and scattered less than 5 mm pulmonary nodules. Current therapy: 1) AC followed by T. Presents for ongoing oncologic management. Interim history: She had significant hypersensitivity reaction to first infusion of Taxol. She was premedicated the day prior for her second dose and still had significant reaction. At the time of the third dose, I was out of the office and she had another reaction. Dr. Friedman recommended rotating to Abraxane to complete her taxane portion of the neoadjuvant chemotherapy. All 3 reactions were characterized by burning sensation in the abdomen that traveled up the chest into the throat causing tightness in the throat and then severe pressure in the head. They all occurred with the first milliliter or 2 of administration. She feels well this week. No complaints. PMH, medications and allergies personally reviewed by me today. Any changes documented in appropriate section. ROS: Constitutional: Denies episodes of fever and night sweats. Neuro: Denies GAMEZ, vertigo, dizziness and imbalance. Denies symptoms of neuropathy. HEENT: No recent change in voice, vision or hearing. Resp: Denies cough, wheeze and hemoptysis. CVS: Denies exertional chest pain, PND, orthopnea and LE edema. GI: Denies dysgeusia. Denies symptoms of stomatitis. Denies dysphagia and odynophagia. Denies reflux, n/v, change in bowel habits and abdominal pain. : Denies dysuria or gross hematuria. No symptoms of bladder outlet obstruction. Endo: Denies hot flashes. Denies polyuria and polydipsia. Denies heat and cold intolerance. Derm: Denies rash. Denies jaundice and diffuse pruritis. Heme: Denies unusual bleeding and unexplained bruising. Psych: Normal mood. Family history: 1) MGM--breast cancer and cervix cancer. Diagnosed with breast cancer age 48. Had Radical mastectomy 1978. 5 of 22 nodes positive. of breast cancer age 52. Had hysterectomy 1962 for scc cervix. PHYSICAL EXAM: Vitals: Blood pressure 117/71, pulse 77, temperature 36.9 C (98.4 F), weight 110.2 kg (243 lb), last menstrual period 06/05/2021, SpO2 98 %. Well-appearing and in no acute distress. EYES: Sclerae are anicteric bilaterally. LYMPHATIC: There is no palpable cervical or supraclavicular adenopathy. RESPIRATORY: Inspiratory breath sounds are of normal intensity in all boyer. No rales, wheezes or rhonchi. Expiratory phase is normal. CARDIOVASCULAR: Rhythm is regular. Normal intensity S1/S2. There is no gallop or murmur. 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 In the central upper left breast mobile tumor is stable--overall about 30% smaller than when started therapy. Tender. Not able to appreciate the high breast tail/low anterior axillary lymph node on the left (subjectively she could feel it but is no longer able to). ABDOMEN: The abdomen is nondistended. No organomegaly. No tenderness. Extremities: No swelling or edema. SKIN: No jaundice or rash. No petechiae. 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 No focal motor weakness. ASSESSMENT/PLAN: (C50.412, Z17.0) Malignant neoplasm of upper-outer quadrant of left breast in female, estrogen receptor positive (HCC) (primary encounter diagnosis) Assessment: -cT1c cN0 ER/CT positive (both greater than 95%, strong intensity) and HER2 negative, IHC 0 stage 1A infiltrating ductal carcinoma of the RIGHT breast. -cT2 cN1 ER positive (greater than 95%, moderate intensity), CT positive (25%, low to moderate intensity), HER2 negative with IHC 0 stage IIB infiltrating ductal carcinoma of the LEFT breast. -CT scans revealed no evidence of metastatic disease but there were a few small subcentimeter pulmonary nodules that will require follow-up. -She has met with surgery and is definitely leaning towards bilateral mastectomy. -She is tolerating neoadjuvant chemotherapy very well thus far with no severe or unexpected toxicity. -Response by exam following cycle #1. -Genetic testing negative. -Had radiation oncology consultation. -Three severe hypersensitivity reactions to Taxol. Plan to rotate to Abraxane to finish neoadjuvantchemotherapy. Discussed rationale. Plan: -Continue neoadjuvant chemotherapy with Abraxane. Plan 3 cycles with peg- filgrastim support. -Prednisone premed tonight and tomorrow morning. -Continue PPI. -Continue Lasix. -OV/labs in 3 weeks for cycle #2. -MRI when completes chemotherapy. Portions of this documentation were copied and pasted from previous office visit notes in order to provide a cohesive continuity of the history. The note has been reviewed and edited and updated as necessary. Rachid Moore DO documented in this encounterSt. [facility] [place] [facility]04[facility] Miscellaneous Notes* Addendum Note - Stefan Friedman MD - 09/24/2021 2:22 PM EDT Addended by: STEFAN FRIEDMAN on: 09/24/2021 02:22 PM Modules accepted: Orders documented in this encounterSt. Mary'[facility] [place] [facility]04[facility] History of Present illness Narrative* Stefan Friedman MD - 09/24/2021 12:52 PM EDT Infusion reaction to weekly pacitaxel again ( 3rd time ) PLAN: Stop pacitaxel and start Abraxane 260 mg/m2 IV every 21 days x 3 more cycles. Consent signed. Stefan Friedman MD * Kait Sommers RN - 09/24/2021 11:47 AM EDT 1133: Patient called nurse into room stating that her chest and throat were feeling tight and her face felt warm. Taxol stopped. Dr. Friedman notified and Solu- Medrol given per PRN order. Face appeared red as well and patient states that her face felt like a balloon about to pop. 1134: NS bolus started at this time. Patient states that she is feeling better. Redness in face hassubsided, throat and chest tightness have improved, but are still present. 1138: Dr. Friedman at chairside. States to give patient 25mg of the 50mg PRN order of Benadryl , same done. 1145: This nurse remained chairside with patient for about 15 minutes. Patient symptoms continue toimprove. documented in this encounterSt[facility] Miscellaneous Notes* Telephone Encounter - Stefan Friedman MD - 09/23/2021 3:10 PM EDT Patient's request for medication is as follows Signed Prescriptions Disp Refills OLANZapine (ZYPREXA) 10 mg tablet 90 tablet 0 Sig: Take 1 tablet by mouth daily at bedtime. for 4 nights beginning the night of chemotherapy treatment. ROSEANN: No Authorizing Provider: STEFAN FRIEDMAN Order entered - please phone pharmacy and notify patient. Stefan Friedman MD * Telephone Encounter - Linette Baltazar LPN - 09/23/2021 1:00 PM EDT Requesting 90 day Rx. Linette Baltazar LPN documented in this encounterSt. [facility] [facility] Miscellaneous Notes* Telephone Encounter - Mary Marin RN - 09/17/2021 12:46 PM EDT Below message given to patient. Verbalizing understanding. * Telephone Encounter - Rachid Moore DO - 09/17/2021 12:38 PM EDT The odds of an infusion reaction decrease with each successive dose administration of Taxol. However advise her to take prednisone 20 mg the evening prior to in the morning of next week's dose of Taxol. If no reaction then she shouldn't need further prednisone for subsequent dosing of Taxol. Rachid Moore DO * Telephone Encounter - Mary Marin RN - 09/17/2021 12:33 PM EDT Trish feeling much better and no further complaints of burning in stomach or feeling flushed. Patient wanted you to be aware. documented in this encounterSt. [facility] [facility] History of Present illness Narrative* Mary Marin RN - 09/17/2021 10:21 AM EDT 1116 Patient complaining of burning in abdomen and face feeling hot. Taxol stopped Dr Moore notified. Refer to docflow sheet and mar. 1200 Patient having no further symptoms. Taxol restarted. documented in this encounterSt. [facility] [facility] History of Present illness Narrative* Mary Marin RN - 09/10/2021 9:52 AM EDT Assessment Unchanged from office visit 09/09/21 with Xochitl Berg customer service clerk 1049 Patient complaining of feeling hot and having a hard time breathing. Taxol stopped. Patient very reddened and complaining of her stomach burning. 0xygen applied at [address] Moore notified. Refer to MAR and vitalsigns flow sheet. 1110 Up to restroom with assistance. Patient stating she is feeling somewhat better but states my stomach still bah. 1150 Dr Moore in . Patient has no further complaints and is dozing. Orders for Ativan and to restart Taxol. Refer to MAR.and vital flow sheet. 1308 patient resting after infusion. Denies any pain or discomfort documented in this encounterSt. Mary'[facility] [place] [facility]03[facility] History of Present illness Narrative* SENG Major - 09/09/2021 2:38 PM EDT Social Work Problem Referral Note INFORMATION/REFERRAL : Trish Gilliland 46 year old female was referred by [facility] Social Work for the following reason(s): disability planning PERSONS INTERVIEWED: patient INTERVENTION: Information & Referral Service Co-ordination Affect/Mood: The patient is noted as appropriate IDENTIFIED PROBLEMS/NEEDS: Continue to assess/collaborate Disability Intervention/Referral to be provided:Arrangements made for continuity of care IMPRESSION/PLAN: SW met with patient to discuss STD paperwork needs. SW had physician review/sign and SW faxed to number provided. No other needs identified. F/U APPOINTMENT: PRN SENG Major documented in this encounterSt. [facility] [place] [facility]03[facility] History of Present illness Narrative* Ashley Berg APRN.DISPLAYER - 09/09/2021 8:02 AM EDT Chief Complaint Patient presents with: Established Patient HPI: Trish Gilliland is a 46 year old female who presents here today for evaluation for treatment tomorrow. Per Dr. Moore's previous note: H/o unremarkable past medical history. Patient appreciated a mass in the left breast starting about 8 months prior to presentation. She eventually developed pain and presented to the emergency room where she underwent a CTA of the chest on 06/14/2021. That study demonstrated no evidence of pulmonary embolism. There was an enhancing left axillary lymph node measuring 2.4 x 1.7 x 1.4 cm and there was also an ill-defined 2.4 x 2.3 x 2.1 cm soft tissue mass in the left breast. Smaller nodular density measuring 1 cm was observed in the upper medial right breast. There was evidence of old granulomatous disease without further comment. Patient underwent diagnostic mammogram on 06/15/2021 2 x 2.3 cm irregular mass in the anterior upper central portion of the left breast was observed. Biopsy was strongly recommended. There was also evidence of a 1.2 x 1 cm irregular nodule in the anterior subareolar region of the left breast for which biopsy was also recommended. The impression was bilateral breast masses but no comment was made onthe right breast. Correlation with ultrasound the left axillary region was also recommended. Ultrasound of the right and left breasts was performed on 06/16/2021. Within the right breast there was a 7 x 7 x 7 mm ill-defined hypoechoic nodule with shadowing and increased blood flow at the 2 o'clock position of the breast at 5 cm from the nipple. There was a similar-appearing nodular density measuring 4 x 4 x 4 mm also observed at the 1 o'clock position of thebreast 3 cm from the nipple. The impression was that of 2 adjacent hypoechoic irregular solid nodule s at the 1 and 2 o'clock position of the breast as described. In the left breast there was a 2.7 x 3.5 x 2.3 cm irregular hypoechoic solid mass at the 12 o'clockposition of the breast 3 cm from the nipple. Increased vascularity was observed. Biopsy was recommended. There was also evidence of a prominent lymph node in the left axillary region measuring 1.3 x 0.9 x 0.4 cm. Biopsy was recommended. Underwent biopsy on 06/16/2021. Ultrasound-guided biopsy was obtained of the left axillary enlarged lymph node with clip marking. The left breast mass was also biopsied using a 14-gauge biopsy needle with several passes and clipping. The right breast was also imaged with ultrasound and 2 masses were identified. Under ultrasound guidance, both of these masses were biopsied and clips were placed intoeach of them. Pathology: -Core biopsy of the RIGHT breast mass at the 2 o'clock position demonstrated invasive ductal carcinoma, nuclear grade 1. -Core biopsy of the RIGHT breast mass at 2 o'clock position also revealed fragments of benign breast tissue with fibrosis and focal minimal intraductal hyperplasia without atypia negative for malignancy. -The LEFT breast core biopsy demonstrated invasive ductal carcinoma, nuclear grade 2 as well as ductal carcinoma in situ. -LEFT axillary lymph node core biopsy revealed metastatic carcinoma consistent with breast primary. The comment reads that the left breast core biopsy demonstrating ductal carcinoma revealed DCIS comprising about 70% of the total tumor volume with solid pattern and nuclear grade 2. Necrosis and calcifications were not observed. The entire specimen from the lymph node biopsy demonstrated tumor. No lymph node tissue was identified. It measured 1.2 cm in greatest length and was nuclear grade 2. The cancer specimen from the right breast was ER/CT positive (both greater than 95%, strong intensity) and HER2 negative, IHC 0 The left breast tumor was ER positive (greater than 95%, moderate intensity), CT positive (25%, lowto moderate intensity) and HER2 negative with IHC 0. MRI breasts 06/21/2021: Right breast: Breast tissue is scattered fibroglandular densities with minimal background enhancement. At the 2 o'clock position of the breast 4 cm behind the nipple and 5 cm above the nipple there were 2 irregular enhancing masses. The mass closest to the nipple measured 11 x 7 mm in diameter. Slightly above and more medial to this lesion was another smaller lesion measuring approximately 5 mm in diameter. Tissue clip artifact was noted medial to this superior lesion. Also of these lesions appeared to correspond to the ultrasound findings and were highly suspicious. Small axillary lymph nodes were noted none of which were pathologically enlarged. Left breast: There was a large enhancing mass at the 12 o'clock position 4.4 cm above the nipple and 4 cm behindthe nipple measuring 3.4 x 2.7 x 3.6 cm. This lesion corresponded to the mass shown on ultrasound. Enlarged lymph node in the left axillary region measured 2.6 x 2.2 x 2.3 cm highly suspicious for tumor involvement. No abnormality was visualized in the regions of the chest or liver. Impression overall was 2 enhancing lesions in the right breast and a large enhancing lesion in the left breast corresponding to theultrasound findings. Enlarged left axillary lymph node which was highly suspicious for tumor involvement. She has been having pain in the tumor of the left breast. Menses are irregular. Two children. Two boys ages 21 and 18. . works at [employer]. Underwent CT scan of chest, abdomen pelvis and was found to have pathologic left axillary lymphadenopathy. Breast masses were observed in each breast with the left being much larger than the right. There were nonspecific mildly prominent right hilar lymph node sequela of old granulomatous exposure and scattered less than 5 mm pulmonary nodules. Current therapy: 1) AC followed by T. First cycle 07/16/21 No new concerns today. No new s/e after last cycle of AC. Appetite:After chemo it's not really there. I force myself. Lasting about 3 days. Energy level:It's those first 3 days that I have nothing. Each day will progress a little more. Denies fevers. Mouth:denies sores Resp:denies cough or sob Cardiac:denies chest pain/palpitations GI:denies abd pain, occ. nausea, denies vomiting, moving bowels regularly :denies dysuria/hematuria Extrem:denies pain Endo:+hot [id number] prior to treatment Skin:denies rashes Heme:denies bleeding The ROS is otherwise negative. Past medical history, appointments, medications, allergies reviewed. No changes. EXAM: BP (P) 124/60 Temp 36.6 C (97.9 F) Wt 108.2 kg (238 lb 8 oz) LMP 06/05/2021 BMI 36.80 kg/m APPEARANCE Well appearing, alert, in no acute distress, well-hydrated, well nourished. HEART RRR with normal S1 and S2, no murmurs LUNG clear to auscultation LYMPH NODES No cervical lymphadenopathy, No supraclavicular lymphadenopathy and No axillary lymphadenopathy. ABDOMEN bowel sounds normoactive, soft, non-tender, non-distended, without organomegaly or palpablemasses EXTREMITIES No edema NEURO Awake, alert and oriented x 3, Normal gait and No involuntary motions. SKIN Skin color, texture, turgor normal, no suspicious rashes or lesions LABS: Component Latest Ref Rng & Units 07/16/2021 07/28/2021 08/12/2021 08/25/2021 09/09/2021 WBC 3.70 - 11.00 k/uL 6.35 8.99 5.62 5.14 5.32 RBC 3.90 - 5.20 m/uL 4.28 4.18 3.95 3.87 (L) 3.88 (L) Hemoglobin 11.5 - 15.5 g/dL 12.8 12.4 11.9 11.9 12.0 Hematocrit 36.0 - 46.0 % 37.5 37.7 35.6 (L) 34.6 (L) 35.2 (L) MCV 80.0 - 100.0 fL 87.6 90.2 90.1 89.4 90.7 MCH 26.0 - 34.0 pg 29.9 29.7 30.1 30.7 30.9 MCHC 30.5 - 36.0 g/dL 34.1 32.9 33.4 34.4 34.1 RDW-CV 11.5 - 15.0 % 12.0 12.7 13.8 14.7 15.1 (H) Platelet Count 150 - 400 k/uL 273 226 202 283 250 MPV 9.0 - 12.7 fL 9.1 8.7 (L) 8.8 (L) 8.7 (L) 8.7 (L) Neut% % 50.1 46.0 65.0 51.0 Abs Neut (ANC) 1.45 - 7.50 k/uL 3.17 4.14 3.65 2.62 Lymph% % 38.9 47.0 21.0 32.0 Abs Lymph 1.00 - 4.00 k/uL 2.47 4.23 (H) 1.18 1.64 Preston% % 7.4 3.0 11.0 10.0 Abs Preston <0.87 k/uL 0.47 0.27 0.62 0.51 Eosin% % 3.1 0.0 0.0 Abs Eosin <0.46 k/uL 0.20 0.00 0.00 Baso% % 0.5 0.0 1.0 Abs Baso <0.11 k/uL 0.03 0.00 0.05 ANC(includeSEG+BAND) k/uL 4.14 Myelo% % 1.0 2.0 Promyl% % 3.0 Anisocytosis Present Left Shift Present Present Polychromasia Slight Target Cells Moderate Toxic Granulation Present Platelet Estimate Platelet estimate adequate Adequate Adequate Diff Type Auto Diff Manual Diff Red Cell Morph Unremarkable Unremarkable DTYPE Nucleated Reds 0 /100 WBC 0.0 Absolute nRBC <0.01 k/uL <0.01 [place]% % 1.0 Ovalocytes CMP: Pending ASSESSMENT/PLAN: 1. 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, estrogen receptor positive (HCC) - ICD9: 174.8, V86.0, ICD10: C50.811, C50.812, Z17.0 cT1c cN0 ER/CT positive (both greater than 95%, strong intensity) and HER2 negative, IHC 0 stage 1Ainfiltrating ductal carcinoma of the RIGHT breast. cT2 cN1 ER positive (greater than 95%, moderate intensity), CT positive (25%, low to moderate intensity) and HER2 negative with IHC 0 stage IIB infiltrating ductal carcinoma of the LEFT breast. - Overall tolerated neoadj. AC well-mild fatigue and nausea. - Reviewed CBC with pt. - CMP pending. - Response noted after first cycle of AC. - Genetic testing negative. - Follow up with sugeon/plastics as scheduled. - Discussed taxol and potential side effects. - Proceed as scheduled for #1 neoadj. taxol tomorrow pending all labs. - Follow up as scheduled. - Pt. aware to call office with any questions/concerns. The patient indicates understanding of these issues and agrees with the plan. All documentation from previous visit of 08/25/21-Dr. Moore was copied and pasted, documentation hasbeen reviewed and edited as necessary for today's visit. Ashley Berg APRN.JANINE documented in this encounterSt. [facility] [facility] Nurse Note* Ninfa Aldana LPN - 09/09/2021 7:56 AM EDT Est. Pt, discuss recent lab results, tx tomorrow Ninfa Aldana LPN documented in this encounterSt. [facility] [facility]03[facility]22 NoteHNO ID: [id number] Author: Garry Santos MD Service: ? Author Type: Physician Type: Progress Notes Filed: 08/30/2021 4:43 PM Note Text: Chief Complaint: Patient presents with: Recheck: Asssess residential through chemo HISTORY OF PRESENT ILLNESS: Trish Gilliland is a 46 year old female who presents for an evaluation of bilateral breast cancer and recheck residential through chemotherapy. Patient states the one on the left has decreased in size, the one on the right was non-palpable. Patient's genetic testing was negative. Kait Morris MA Patient has 2 Forrest iron carrier in the left axillary node. The first Forrest slab lifting engineer did not function and the second 1 was weak. 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, left (HCC) 06/18/2021 dx at [facility] by Dr.Anthony Jacquie Mendez PAST SURGICAL HISTORY Procedure Laterality Date - BREAST BIOPSY HX Bilateral 06/16/2021 BIlateral breast cancer - LAPS SURG CHOLECYSTECTOMY W/CHOLANGIOGRAPHY 08/04/2009 Normal [facility] Social History Tobacco Use - Smoking status: Never Smoker - Smokeless tobacco: Never Used Vaping Use - Vaping Use: Never used Substance Use Topics - Alcohol use: No - Drug use: No FAMILY HISTORY Problem Relation Age of Onset - Breast Cancer Maternal Grandmother Right mast, recurrance on right (age 52), at 53 - Cervical Cancer Maternal Grandmother Dx 1963 - Uterine Cancer Maternal Grandmother - Skin Cancer Maternal Grandfather - Skin Cancer Paternal Grandfather decsd from [place] - Diabetes Son - Skin Cancer Maternal Aunt ALLERGIES Allergen Reactions - Emend [Fosaprepitan* Shortness of Breath - Penicillins Current Outpatient Medications Medication Sig - OLANZapine (ZYPREXA) 10 mg tablet TAKE 1 TABLET BY MOUTH DAILY AT BEDTIME. FOR 4 NIGHTS BEGINNING THE NIGHT OF CHEMOTHERAPY TREATMENT. - furosemide (LASIX) 20 mg tablet Take 1 tablet by mouth once daily. - omeprazole (PRILOSEC) 40 mg capsule Take 1 capsule by mouth once daily. - lidocaine-prilocaine (EMLA) 2.5-2.5 % cream Apply to port site 60 minutes prior to accessing. - promethazine (PHENERGAN) 25 mg tablet Take 1 tablet by mouth every 6 hours as needed. FOR NAUSEA - dexAMETHasone (DECADRON) 4 mg tablet Take 1 tablet by mouth twice daily with meals. on the second, third and fourth day after each chemotherapy treatment. - ibuprofen (MOTRIN) 200 mg tablet Take 400 mg by mouth every 8 hours as needed. - calcium carbonate/vitamin D3 (TOÑITO-600 WITH VITAMIN D ORAL) Take 1 tablet by mouth once daily. Current Facility-Administered Medications Medication Dose Route Frequency - perflutren lipid microspheres 1.3 mL in NaCl (PF) 0.9% 10 mL injection (DEFINITY) INTRAVENOUS DIRECTED PRN - sodium chloride 0.9 % (flush) 10 mL (BD POSIFLUSH) 10 mL INTRAVENOUS DIRECTED PRN PHYSICAL EXAM: BP 120/71 Pulse 97 Ht 5' 7.5 (1.72m) Wt 239 lb (108.4kg) LMP 06/05/2021 BMI 36.86 kg/(m2). General Appearance: Well appearing, alert, in no acute distress, well-hydrated, well nourished. Skin: Negative for jaundice or pallor. Lungs: Normal respirations Breast Exam: Left Left breast mass superior central aspect has decreased in size to 1.5 x 1.0 cm with slight tenderness. The left axillary lymph node is no longer palpable. There is associated tenderness. Data Reviewed Previous pathology reports and breast imaging ASSESSMENT/PLAN: 1. 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 She will need posttreatment MRI and plastic surgery consultation. She is planning on bilateral mastectomy. - CONSULT TO PLASTIC SURGERY 2. 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 I personally performed a history, physical exam and medical decision making. Garry Santos, [facility]01-25-2022 NoteHNO ID: [id number] Author: QUINCY Schwab) Service: ? Author Type: Technologist Type: Progress Notes Filed: 07/06/2021 4:10 PM Note Text: Radiology Service Progress Note PATIENT NAME: Trish Gilliland DATE OF SERVICE: July 06, 2021 TIME: 4:10 PM PATIENT IDENTITY VERIFICATION COMPLETED USING TWO (2) IDENTIFIERS: Name and Date of confirmed by patient verbally. FALL SCREENING: Has the patient had 2 falls in the last year or 1 fall with injury or currently using an Ambulatory Assistive Device (Walker, Cane, Wheelchair, Crutches, etc.)? No PATIENT GENDER DATA: Female. status: : No status: NO. PATIENT RELEVANT IMPLANT DATA REVIEWED: Not Applicable RADIOLOGY DEPARTMENT: Mammography PERIPHERAL IV DATA: Not applicable SIGNED BY: QUINCY Schwab) July 06, 2021 4:10 [facility]01-25-2022 NoteHNO ID: [id number] Author: Hemal Mejia Service: Radiology Author Type: Marketing Production Coordinator Type: Progress Notes Filed: 07/06/2021 2:49 PM Note Text: Radiology Service Progress Note PATIENT NAME: Trish Gilliland DATE OF SERVICE: July 06, 2021 TIME: 2:48 PM PATIENT IDENTITY VERIFICATION COMPLETED USING TWO (2) IDENTIFIERS: Name and Date of confirmed by patient verbally. FALL SCREENING: Has the patient had 2 falls in the last year or 1 fall with injury or currently using an Ambulatory Assistive Device (Walker, Cane, Wheelchair, Crutches, etc.)? No PATIENT GENDER DATA: Female. status: : No status: NO. PATIENT RELEVANT IMPLANT DATA REVIEWED: Not Applicable RADIOLOGY DEPARTMENT: Ultrasound PERIPHERAL IV DATA: Not applicable SIGNED BY: Hemal Mejia Tech July 06, 2021 2:48 [facility]01-21-2022 NoteHNO ID: [id number] Author: SYED Lugo Service: ? Author Type: Genetic Counselor Type: Progress Notes Filed: 07/02/2021 12:19 PM Note Text: [facility] Consultation Note Genetic Counselor: Jesika Melton MS, [facility] Patient: Trish Gilliland Patient Name and confirmed at initiation of visit HIGH LEVEL SUMMARY: ? The patient's personal and family history is potentially suggestive of a hereditary breast cancer syndrome. ? The patient provided informed consent for Hereditary Breast and Ovarian Cancer Panel with reflex to the Common Hereditary Cancers Panel through [facility]. Results are expected in 2 weeks. IDENTIFICATION AND CHIEF COMPLAINT: Dr. Garry Satnos requested a consultation for genetic counseling and risk assessment for Trish Gilliland, a 46 year old female, for discussion of her recent diagnosis of breast cancer and family history of breast cancer. She presents to clinic today to discuss the possibility of a genetic predisposition to cancer, and to further clarify her risks, as well as her family members' risks for cancer. HISTORY OF PRESENT ILLNESS: In June 2021, at the age of 46, Trish Gilliland was diagnosed with bilateral breast cancer. 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 (ER positive (>95%), CT positive (25%) and Her2 0) and clinical stage IA, cT1N0, grade 2 invasive ductal carcinoma of the right breast. (ER positive (>95%), CT positive (>95%) and Her2 0.) She is in the early stages of treatment planning but is tentatively planning neoadjuvant chemotherapy with Dr. Moore. 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, left (HCC) 06/18/2021 dx at [facility] by Dr.Anthony Jacquie Mendez PAST SURGICAL HISTORY Procedure Laterality Date - BREAST BIOPSY HX Bilateral 06/16/2021 BIlateral breast cancer - LAPS SURG CHOLECYSTECTOMY W/CHOLANGIOGRAPHY 08/04/2009 Normal [facility] CANCER SURVEILLANCE HISTORY: Colonoscopy: No EGD: No GI Polyps: N/A Pelvic Exam: Yes, one recently Pap Smear: Yes, one recently REPRODUCTIVE HISTORY AND PERSONAL RISK ASSESSMENT FACTORS: Weight: Last 1 Encounter Wt Readings: Date: Wt: 06/29/2021 102.5 kg (226 lb) Height: Last 1 Encounter Ht Readings: Date: Ht: 06/29/2021 170.8 cm (5' 7.25) Uterus Intact: Yes Ovaries Intact: Yes SOCIAL HISTORY: Social History Tobacco Use - Smoking status: Never Smoker - Smokeless tobacco: Never Used Substance Use Topics - Alcohol use: No - Drug use: No FAMILY HISTORY: We obtained a detailed, 4-generation family history. Significant diagnoses are listed below: FAMILY HISTORY Problem Relation Age of Onset - Breast Cancer Maternal Grandmother Right mast, recurrance on right (age 52), at 53 - Cervical Cancer Maternal Grandmother Dx 1963 - Uterine Cancer Maternal Grandmother - Skin Cancer Maternal Grandfather - Skin Cancer Paternal Grandfather decsd from [place] - Diabetes Son - Skin Cancer Maternal Aunt A copy of the patient's pedigree will be available under the scanned documents tab following today's visit. GENETIC COUNSELING RISK ASSESSMENT, DISCUSSION, AND SUGGESTED FOLLOW UP: We reviewed the natural history and genetic etiology of sporadic, familial and hereditary cancer syndromes. The patient's personal and family history is potentially suggestive of: a hereditary breast cancer syndrome The patient meets NCCN HBOC testing criteria based on her personal history of breast cancer diagnosed 46-50 y and an additional breast cancer primary at any age. We discussed that identification of a hereditary cancer syndrome may help her care providers tailor her medical management. If a mutation is detected, the National Comprehensive Cancer Network and/or expert opinion recommendations could include increased cancer surveillance and prophylactic surgery options. If a mutation is detected, the patient will be referred back to the referring provider and to any additional appropriate care providers to discuss the relevant options. Inheritance of hereditary cancer syndromes was discussed with the patient. If a mutation is not found in the patient, this will decrease the likelihood of a hereditary cancer syndrome as the explanation for the patient's recent diagnosis of breast cancer. However, it cannot completely rule out this possibility. Cancer surveillance options would be discussed for the patient according to the appropriate standard National Comprehensive Cancer Network and [employer] guidelines, (more content not included)...[facility]01-18-2022 NoteHNO ID: [id number] Author: Garry Santos MD Service: ? Author Type: Physician Type: Progress Notes Filed: 06/29/2021 5:12 PM Note Text: Chief Complaint: Patient presents with: Breast Cancer: Bilateral AGE AT [place] 12 AGE AT FIRST 26 (2) FAMILY HISTORY OF BREAST CANCER Yes (IF YES) NUMBER OF FIRST DEGREE RELATIVES WITH BREAST CANCER 0 PREVIOUS BREAST BIOPSIES Yes (3) RACE ZAMZAM MODEL RISK 5 YEAR Dx with breast cancer HISTORY OF PRESENT ILLNESS: Trish Gilliland is a 46 year old female who presents for an evaluation of left breast palpable lump she noticed about 6 months ago, states the lump decreased in size and she was not concerned, then about 1 month ago increased and her axilla became tender and swollen. Patient had breast imaging done at [facility] which recommended biopsies of breast mass and lymph node on the left, as well as two areas on the right. Patient denies any breast symptoms on the right. Patient had all 4 biopsies done, was diagnosed with left breast cancer, mets to axilla, and right breast cancer. The second right breast biopsy was benign. Patient is scheduled to have whole body CT done at [facility] tomorrow. 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, left (HCC) 06/18/2021 dx at [facility] by Dr.Anthony Jacquie Mendez PAST SURGICAL HISTORY Procedure Laterality Date - BREAST BIOPSY HX Bilateral 06/16/2021 BIlateral breast cancer - LAP CHOLECYSTECT/CHOLANGIOGRAPHY 08/04/2009 Normal [facility] Social History Tobacco Use - Smoking status: Never Smoker - Smokeless tobacco: Never Used Substance Use Topics - Alcohol use: No - Drug use: No FAMILY HISTORY Problem Relation Age of Onset - Breast Cancer Maternal Grandmother Right mast, recurrance on right (age 52), at 53 - Cervical Cancer Maternal Grandmother Dx 1963 - Uterine Cancer Maternal Grandmother - Melanoma Maternal Grandfather - Melanoma Paternal Grandfather decsd from [place] - Diabetes Son - Melanoma Maternal Aunt ALLERGIES Allergen Reactions - Penicillins Current Outpatient Medications Medication Sig - ibuprofen (MOTRIN) 200 mg tablet Take 400 mg by mouth every 8 hours as needed. - iv contrast (will be provided with radiology test) CT Chest ABD/PEL-Inject, intravenously, once for 1 dose.No IV access, insert saline lock prior to the beginning of sedation, infusion, injection of imaging exam. Discontinue saline lock post exam. If Pt. has a central line or IVAD, may access for administration according to line specific nursing protocol. Once exam is complete flush line and de-access according to line specific nursing protocol in the CT contrast administration guidelines link. - enteric contrast (will be provided with radiology test) For CT CHESTABD/PEL W IVCON Routine order Administer, As Directed One Time Only, via Oral, Rectal, both Oral and Rectal, Enteric Tube, Stoma or Indwelling Catheter, Enteric Contrast as designated per enteric contrast guidelines - calcium carbonate/vitamin D3 (TOÑITO-600 WITH VITAMIN D ORAL) Take 1 tablet by mouth once daily. - predniSONE (DELTASONE) 10 mg tablet Take 4 tabs daily x 3 days, then 3 tabs x 3 days, 2 tabs x 3 days, then 1 tab x3 days with food. (Patient not taking: Reported on 06/29/2021 ) - guaiFENesin (MUCINEX) 600 mg 12 hr tablet Take 2 tablets by mouth twice daily. (Patient not taking: Reported on 09/01/2020 ) - benzonatate (TESSALON PERLE) 100 mg capsule Take 1 capsule by mouth three times daily as needed. (Patient not taking: Reported on 09/01/2020 ) - albuterol HFA (PROVENTIL HFA, VENTOLIN HFA) 90 mcg/actuation inhaler Inhale 2 Puffs as instructed every 4 hours as needed. (Patient not taking: Reported on 09/01/2020 ) No current facility-administered medications for this visit. REVIEW OF SYSTEMS GENERAL: No weight loss, malaise or fevers HEENT: No changes in hearing or vision, no nose bleeds or other nasal problems NECK: Negative for lumps, goiter, pain and significant neck swelling RESPIRATORY: Negative for cough, hemoptysis, wheezing, COPD, dyspnea or shortness of breath CARDIOVASCULAR:Negative for chest pain, leg swelling, hypertension, CHF or palpitations, currently describes achy feeling in chest, believes stress related to recent biopsies GI: No nausea, vomiting, or diarrhea MUSCULOSKELETAL: left shoulder blade discomfort SKIN: Negative for lesions, rash, and itching HEMATOLOGY/LYMPHOLOGY: Negative for prolonged bleeding and bruising easily, Positive for swollen nodes: left axilla NEURO: No history of headaches, syncope, paralysis, seizures o (more content not included)...[facility] 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, estrogen receptor positive (HCC) Malignant neoplasm of upper-outer quadrant of left breast in female, estrogen receptor positive (HCC) Breast cancer metastasized to axillary lymph node, left (HCC) [facility] 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, estrogen receptor positive (HCC)- Primary [facility] Diagnosis 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, estrogen receptor positive (HCC)- Primary [facility] this [facility] Diagnosis 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, estrogen receptor positive (HCC)- Primary Malignant neoplasm of upper-outer quadrant of left breast in female, estrogen receptor positive (HCC) documented [facility] this [facility] Diagnosis 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, estrogen receptor positive (HCC)- Primary Malignant neoplasm of upper-outer quadrant of left breast in female, estrogen receptor positive (HCC) [facility] this [facility] Diagnosis 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, estrogen receptor positive (HCC)- Primary Malignant neoplasm of upper-outer quadrant of left breast in female, estrogen receptor positive (HCC) [facility] 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, estrogen receptor positive (HCC) [facility] Diagnosis 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, estrogen receptor positive (HCC)- Primary Malignant neoplasm of upper-outer quadrant of left breast in female, estrogen receptor positive (HCC) [facility] Diagnosis 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, estrogen receptor positive (HCC)- Primary Malignant neoplasm of upper-outer quadrant of left breast in female, estrogen receptor positive (HCC) [facility] Diagnosis Malignant neoplasm of upper-outer quadrant of left breast in female, estrogen receptor positive (HCC)- Primary 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, estrogen receptor positive (HCC) [facility] Diagnosis Examination of participant in clinical trial- [facility] Malignant neoplasm of upper-outer quadrant of left breast in female, estrogen receptor positive (HCC)- Primary 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, estrogen receptor positive (HCC) [facility] Diagnosis Malignant neoplasm of upper-outer quadrant of left breast in female, estrogen receptor positive (HCC)- Primary [facility] Diagnosis Malignant neoplasm of upper-outer quadrant of left breast in female, estrogen receptor positive (HCC)- Primary 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, estrogen receptor positive (HCC) [facility] Diagnosis 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, estrogen receptor positive (HCC)- Primary Chemotherapy-induced neuropathy (HCC) Polyneuropathy due to drugs [facility] Diagnosis Malignant neoplasm of upper-outer quadrant of left breast in female, estrogen receptor positive (HCC)- Primary [facility] Diagnosis Malignant neoplasm of upper-outer quadrant of left breast in female, estrogen receptor positive (HCC)- Primary [facility] Diagnosis Malignant neoplasm of upper-outer quadrant of left breast in female, estrogen receptor positive (HCC)- Primary [facility] Diagnosis 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, estrogen receptor positive (HCC)- Primary [facility] Diagnosis Malignant neoplasm of upper-outer quadrant of left breast in female, estrogen receptor positive (HCC)- Primary [facility] Diagnosis Malignant neoplasm of upper-outer quadrant of left breast in female, estrogen receptor positive (HCC)- Primary [facility] Diagnosis 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, estrogen receptor positive (HCC)- Primary Breast cancer metastasized to axillary lymph node, left (HCC) [facility] Diagnosis 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, estrogen receptor positive (HCC) Breast cancer metastasized to axillary lymph node, left (HCC) [facility] Diagnosis Malignant neoplasm of upper-outer quadrant of left breast in female, estrogen receptor positive (HCC)- Primary 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, estrogen receptor positive (HCC) [facility] Diagnosis Malignant neoplasm of upper-outer quadrant of left breast in female, estrogen receptor positive (HCC)- Primary [facility] Diagnosis Malignant neoplasm of upper-outer quadrant of left breast in female, estrogen receptor positive (HCC)- Primary [facility] Diagnosis Malignant neoplasm of upper-outer quadrant of left breast in female, estrogen receptor positive (HCC)- Primary Breast cancer metastasized to axillary lymph node, left (HCC) [facility] Diagnosis 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, estrogen receptor positive (HCC) [facility] Diagnosis Malignant neoplasm of upper-outer quadrant of left breast in female, estrogen receptor positive (HCC) Malignant neoplasm of central portion of both 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, estrogen receptor positive (HCC) Family history of malignant neoplasm of breast Breast cancer metastasized to axillary lymph node, left (HCC) [facility] Diagnosis Examination of participant in clinical trial- Primary [facility]* Diagnosis Malignant neoplasm of upper-outer quadrant of left breast in female, estrogen receptor positive (HCC)- Primary 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, estrogen receptor positive (HCC) [facility] Diagnosis 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, estrogen receptor positive (HCC)- Primary 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, estrogen receptor positive (HCC) [facility] Diagnosis 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, estrogen receptor positive (HCC)- Primary 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, estrogen receptor positive (HCC) [facility]* Diagnosis Pre-op exam [Z01.818 (ICD-10-CM)]- Primary Preoperative examination, unspecified Malignant neoplasm of upper-outer quadrant of right breast in female, estrogen receptor positive (HCC) [C50.411, Z17.0 (ICD-10-CM)] Malignant neoplasm of overlapping sites of right breast in female, estrogen receptor positive (HCC) [C50.811, Z17.0 (ICD-10-CM)] 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, estrogen receptor positive (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, estrogen receptor positive (HCC) [facility] Diagnosis Malignant neoplasm of upper-outer quadrant of right female breast, unspecified estrogen receptor status (HCC)- Primary 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, estrogen receptor positive (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, estrogen receptor positive (HCC) [facility] Diagnosis Aftercare following surgery- Primary Encounter for other specified aftercare History of bilateral breast cancer [facility] Diagnosis 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, estrogen receptor positive (HCC)- Primary Lung nodules Other nonspecific abnormal finding of lung field Encounter for monitoring cardiotoxic drug therapy Encounter for therapeutic drug monitoring Dyspnea and respiratory abnormalities Other dyspnea and respiratory abnormality [facility]* Diagnosis Examination of participant in clinical trial- Primary documented [facility] this [facility] noteNo assessment information availableWooster [facility] Work Phone: Evaluation note* Diagnosis 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, estrogen receptor positive (HCC) Dyspnea and respiratory abnormalities Other dyspnea and respiratory abnormality documented in this encounter [facility] note* Diagnosis Aftercare following surgery- Primary Encounter for other specified aftercare documented in this encounter [facility] note* Diagnosis Bilateral malignant neoplasm of breast in female, estrogen receptor positive, unspecified site of breast (HCC)- Primary documented in this encounter [facility] note* Diagnosis History of bilateral breast cancer- Primary documented in this encounter [facility] note* Diagnosis Bilateral malignant neoplasm of breast in female, estrogen receptor positive, unspecified site of breast (HCC)- Primary documented in this encounter [facility] note* Diagnosis Bilateral malignant neoplasm of breast in female, estrogen receptor positive, unspecified site of breast (HCC)- [facility] Diagnosis Bilateral malignant neoplasm of breast in female, estrogen receptor positive, unspecified site of breast (HCC)- Primary documented in this encounter [facility] note* Diagnosis 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, estrogen receptor positive (HCC)- Primary documented in this encounter [facility] note* Diagnosis Encounter for screening for osteoporosis- Primary Special screening for osteoporosis Asymptomatic postmenopausal status 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, estrogen receptor positive (HCC) documented in this encounter [facility] note* Diagnosis Bilateral malignant neoplasm of breast in female, estrogen receptor positive, unspecified site of breast (HCC)- Primary documented in this encounter [facility] note* Diagnosis Bilateral malignant neoplasm of breast in female, estrogen receptor positive, unspecified site of breast (HCC)- Primary documented in this encounter [facility] note* Diagnosis Bilateral malignant neoplasm of breast in female, estrogen receptor positive, unspecified site of breast (HCC)- Primary documented in this encounter [facility] note* Diagnosis 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, estrogen receptor positive (HCC)- Primary documented in this encounter [facility] note* Diagnosis 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, estrogen receptor positive (HCC)- Primary [facility] Diagnosis Bilateral malignant neoplasm of breast in female, estrogen receptor positive, unspecified site of breast (HCC)- Primary [facility]* Diagnosis Onset Date Resolution Status Bilateral breast cancer acut e High risk factor score for venous thromboembolism (VTE ) acute Bilateral breast cancer acut e High risk factor score for venous thromboembolism (VTE ) acute [facility] Work Phone: Evaluation note* Diagnosis Radiotherapy follow-up- Primary Radiotherapy follow-up examination Bilateral malignant neoplasm of breast in female, estrogen receptor positive, unspecified site of breast (HCC) documented in this encounter [facility] note* Diagnosis Bilateral malignant neoplasm of breast in female, unspecified estrogen receptor status, unspecified site of breast (HCC)- Primary [facility]* Diagnosis Onset Date Resolution Status Bilateral breast cancer acut e High risk factor score for v enous thromboembolism (VTE) resolved Bilateral breast cancer acut e High risk factor score for v enous thromboembolism (VTE) resolved Bilateral breast cancer acut e High risk factor score for v enous thromboembolism (VTE) resolved Bilateral breast cancer acut e BMI 39.0-39.9,adult acute Hyperlipidemia acute Other obesity acute [facility] Work Phone: Evaluation note* Diagnosis Encounter for screening for osteoporosis- Primary Special screening for osteoporosis Bilateral malignant neoplasm of breast in female, unspecified estrogen receptor status, unspecified site of breast (HCC) [facility]* Diagnosis Examination of participant in clinical trial- Primary documented in this encounter [facility] note* Diagnosis Examination of participant in clinical trial- Primary [facility]* Diagnosis 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, estrogen receptor positive (HCC)- Primary Encounter for screening for osteoporosis Special screening for osteoporosis Bilateral malignant neoplasm of breast in female, unspecified estrogen receptor status, unspecified site of breast (HCC) documented in this encounter [facility] note* Diagnosis 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, estrogen receptor positive (HCC)- Primary documented in this encounter [facility] note* Diagnosis 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, estrogen receptor positive (HCC)- Primary Bilateral malignant neoplasm of breast in female, unspecified estrogen receptor status, unspecified site of breast (HCC) Encounter for screening for osteoporosis Special screening for osteoporosis documented in this encounter [facility] note* Diagnosis Encounter for follow-up surveillance of breast cancer- Primary Unspecified follow-up examination Menopause Symptomatic menopausal or female climacteric states Aromatase inhibitor use Use of aromatase inhibitors documented in this encounter [facility] note* Diagnosis Bilateral malignant neoplasm of breast in female, unspecified estrogen receptor status, unspecified site of breast (HCC)- Primary Encounter for screening for osteoporosis Special screening for osteoporosis documented in this encounter [facility] note* Diagnosis Encounter for follow-up surveillance of breast cancer Unspecified follow-up examination Menopause Symptomatic menopausal or female climacteric states Aromatase inhibitor use Use of aromatase inhibitors documented in this encounter [facility] [place] note* Diagnosis Encounter for follow-up surveillance of breast cancer- Primary Unspecified follow-up examination documented in this encounter [facility] Discharge instructions Additional Instructions Your CT was negative for any signs of appendicitis, diverticulitis more severe cause of your symptoms. I suspect this is from your recent COVID-19 infection. Continue to hydrate as you have been and take the medicine prescribed as needed for symptoms.[facility] Work Phone: Reason for referral (narrative)* Outpatient Procedure (Routine) - Open Specialty Diagnoses / Procedures Referred By Jeramy t Referred To Contact [facility] Diagnoses Bilateral malignant neoplasm of breast in female, unspecified estrogen receptor status, unspecified site of breast (HCC) Procedures ECHO ECHO TTC R-T 2D W/WOM-MODE COMPL SPEC&COLR D Rachid Moore, [address] [place] [address] [facility] [place] [address] [place] [address] Referral ID Status Reason Start Date Expiration Date V isits Requested Visits Authorized [id number] Open Auto-Generate d Referral 06/20/2022 06/20/2023 1 1 [facility] for referral (narrative)* Diagnostic Procedure Only (Routine) - Authorized Specialty Diagnoses / Procedures Referred By Contac t Referred To Contact XR IMAGING Diagnoses Encounter for follow-up surveillance of breast cancer Menopause Aromatase inhibitor use Procedures DXA-AXIAL SKELETON DXA BONE DENSITY STUDY 1/> SITES Ashley Strange APRN.DISPLAYER [address] [place] [address] [place] [address] Referral ID Status Reason Start Date Expiration Date Visits Requested Visits Authorized [id number] Authorized Auto-Generat ed Referral 06/20/2024 07/20/2025 1 1 [facility] for visit Narrative* Diagnostic Procedure Only (Routine) - Closed Specialty Diagnoses / Procedures Referred By Contac t Referred To Contact XR IMAGING Diagnoses Encounter for follow-up surveillance of breast cancer Menopause Aromatase inhibitor use Procedures DXA-AXIAL SKELETON DXA BONE DENSITY STUDY 1/> SITES Ashley Strange APRN.DISPLAYER [address] [place] [address] Phone: tel: fax: [place] [address] Referral ID Status Reason Start Date Expiration Date V isits Requested Visits Authorized [id number] Closed Auto-Generate d Referral 06/20/2024 07/20/[address] [facility] Medications Administered Section Inactive Administered Medications - up to 3 most recent administrations Medication Order MAR Action Action Date Dose Rate Site dexAMETHasone 10 mg/NS 50 mL (PYXIS) 10 mg ivpb 10 mg, INTRAVENOUS, ONCE, 1 dose, On Mon09/10/21 at 1000, Administer 30 minutes prior to infusion. Refrigerate. New Bag/Syringe/Bottle 09/10/2021 10:16 AM EDT 10 mg diphenhydrAMINE 25 mg injection (BENADRYL) 25 mg, INTRAVENOUS, ONCE, 1 dose, On Mon09/10/21 at 1000, Give prior to chemotherapy. Given 09/10/2021 10:12 AM EDT 25 mg diphenhydrAMINE 50 mg injection (BENADRYL) 50 mg, INTRAVENOUS, NEEDED, 1 dose, Starting on Mon09/10/21 at 0952, Until Mon09/10/21 at 1051, Administer per hypersensitivity/anaphylaxi s grading in nursing communication Given 09/10/2021 10:51 AM EDT 50 mg famotidine 20 mg injection (PEPCID) 20 mg, INTRAVENOUS, ONCE, 1 dose, On Mon09/10/21 at 1000, Give prior to chemotherapy. REFRIGERATE Given 09/10/2021 10:13 AM EDT 20 mg hydrocortisone sodium succinate (PF) 100 mg injection (Solu-CORTEF) 100 mg, INTRAVENOUS, NEEDED, 1 dose, Starting on Mon09/10/21 at 0952, Until Mon09/10/21 at 1052, Administer per hypersensitivity/anaphylaxi s grading in nursing communication Given 09/10/2021 10:52 AM EDT 100 mg LORazepam 0.5 mg injection (ATIVAN) 0.5 mg, INTRAVENOUS, ONCE, 1 dose, On Mon09/10/21 at 1200, Give prior to chemotherapy Dilute IV dose with equal volume of compatible diluent (D5W, NS, SWFI) prior to IV administration. Given 09/10/2021 11:53 AM EDT 0.5 mg PACLitaxel 177.6 mg in NaCl 0.9% 250 mL (TAXOL) 177.6 mg (80 mg/m2 2.22 m2 Treatment Plan BSA from Recorded weight), INTRAVENOUS, Administer over 1 Hours, ONCE, 1 dose, On Mon09/10/21 at 1000, Approx Total Volume =exp 09/17/21 (refrigerated) Hazardous Chemotherapy Drug: Use appropriate PPE. Antineoplastic Irritant with Vesicant Potential. Administer with non-DEHP 0.2 micron filter and tubing. Restarted 09/10/2021 12:05 PM EDT New Bag/Syringe/Bottle 09/10/2021 10:44 AM EDT 177.6 mg prochlorperazine 10 mg injection (COMPAZINE) 10 mg, INTRAVENOUS, ONCE, 1 dose, On Mon09/10/21 at 1130, Protect From Light Given 09/10/2021 11:04 AM EDT 10 mg Inactive Administered Medications - up to 3 most recent administrations Medication Order MAR Action Action Date Dose Rate Site dexAMETHasone 10 mg/NS 50 mL (PYXIS) 10 mg ivpb 10 mg, INTRAVENOUS, ONCE, 1 dose, On Mon09/17/21 at 1100, Administer 30 minutes prior to infusion. Refrigerate. New Bag/Syringe/Bottle 09/17/2021 10:47 AM EDT 10 mg diphenhydrAMINE 25 mg injection (BENADRYL) 25 mg, INTRAVENOUS, ONCE, 1 dose, On Mon09/17/21 at 1100, Give prior to chemotherapy. Given 09/17/2021 10:41 AM EDT 25 mg diphenhydrAMINE 50 mg injection (BENADRYL) 50 mg, INTRAVENOUS, NEEDED, 1 dose, Starting on Mon09/17/21 at 1032, Until Mon09/17/21 at 1121, Administer per hypersensitivity/anaphylaxi s grading in nursing communication Given 09/17/2021 11:21 AM EDT 50 mg famotidine 20 mg injection (PEPCID) 20 mg, INTRAVENOUS, ONCE, 1 dose, On Mon09/17/21 at 1100, Give prior to chemotherapy. REFRIGERATE Given 09/17/2021 10:46 AM EDT 20 mg hydrocortisone sodium succinate (PF) 100 mg injection (Solu-CORTEF) 100 mg, INTRAVENOUS, NEEDED, 1 dose, Starting on Mon09/17/21 at 1032, Until Mon09/17/21 at 1123, Administer per hypersensitivity/anaphylaxi s grading in nursing communication Given 09/17/2021 11:23 AM EDT 100 mg LORazepam 0.5 mg injection (ATIVAN) 0.5 mg, INTRAVENOUS, ONCE, 1 dose, On Mon09/17/21 at 1100, Give prior to chemotherapy Dilute IV dose with equal volume of compatible diluent (D5W, NS, SWFI) prior to IV administration. Given 09/17/2021 10:39 AM EDT 0.5 mg PACLitaxel 177.6 mg in NaCl 0.9% 250 mL (TAXOL) 177.6 mg (80 mg/m2 2.22 m2 Treatment Plan BSA from Recorded weight), INTRAVENOUS, Administer over 1 Hours, ONCE, 1 dose, On Mon09/17/21 at 1100, Approx Total Volume =exp 09/26/21 (refrigerated) Hazardous Chemotherapy Drug: Use appropriate PPE. Antineoplastic Irritant with Vesicant Potential. Administer with non-DEHP 0.2 micron filter and tubing. Restarted 09/17/2021 12:02 PM EDT New Bag/Syringe/Bottle 09/17/2021 11:10 AM EDT 177.6 mg Inactive Administered Medications - up to 3 most recent administrations Medication Order MAR Action Action Date Dose Rate Site dexAMETHasone 10 mg/NS 50 mL (PYXIS) 10 mg ivpb 10 mg, INTRAVENOUS, ONCE, 1 dose, On Mon09/24/21 at 1030, Administer 30 minutes prior to infusion. Refrigerate. New Bag/Syringe/Bottl e 09/24/2021 10:39 AM EDT 10 mg diphenhydrAMINE 25 mg injection (BENADRYL) 25 mg, INTRAVENOUS, ONCE, 1 dose, On Mon09/24/21 at 1030, Give prior to chemotherapy. Given 09/24/2021 10:36 AM EDT 25 mg diphenhydrAMINE 50 mg injection (BENADRYL) 50 mg, INTRAVENOUS, NEEDED, 1 dose, Starting on Mon09/24/21 at 1016, Until Mon09/24/21 at 1314, Administer per hypersensitivity/anaphylax is grading in nursing communication Given 09/24/2021 1:14 PM EDT 25 mg famotidine 20 mg injection (PEPCID) 20 mg, INTRAVENOUS, ONCE, 1 dose, On Mon09/24/21 at 1030, Give prior to chemotherapy. REFRIGERATE Given 09/24/2021 10:34 AM EDT 20 mg hydrocortisone sodium succinate (PF) 100 mg injection (Solu-CORTEF) 100 mg, INTRAVENOUS, NEEDED, 1 dose, Starting on Mon09/24/21 at 1016, Until Mon09/24/21 at 1143, Administer per hypersensitivity/anaphylax is grading in nursing communication Given 09/24/2021 11:43 AM EDT 100 mg LORazepam 0.5 mg injection (ATIVAN) 0.5 mg, INTRAVENOUS, ONCE, 1 dose, On Mon09/24/21 at 1030, Give prior to chemotherapy Dilute IV dose with equal volume of compatible diluent (D5W, NS, SWFI) prior to IV administration. Given 09/24/2021 10:38 AM EDT 0.5 mg NaCl 0.9% iv infusion 500-999 mL/hr, INTRAVENOUS, NEEDED, 1 dose, Starting on Mon09/24/21 at 1016, Until Mon09/24/21 at 1234, Hypotension (titrate to maintain SBP greater than 100), Administer per hypersensitivity/anaphylax is grading in nursing communication New Bag/Syringe/Bottl e 09/24/2021 11:34 AM EDT 999 mL/hr 999 mL/hr PACLitaxel 177.6 mg in NaCl 0.9% 250 mL (TAXOL) 177.6 mg (80 mg/m2 2.22 m2 Treatment Plan BSA from Recorded weight), INTRAVENOUS, Administer over 1 Hours, ONCE, 1 dose, On Mon09/24/21 at 1030, Approx Total Volume exp 09/30/21 (refrigerated) Hazardous Chemotherapy Drug: Use appropriate PPE. Antineoplastic Irritant with Vesicant Potential. Administer with non-DEHP 0.2 micron filter and tubing. New Bag/Syringe/Bottl e 09/24/2021 11:27 AM EDT 177.6 mg Inactive Administered Medications - up to 3 most recent administrations Medication Order MAR Action Action Date Dose Rate Site ondansetron (PF) 8 mg injection (ZOFRAN) 8 mg, INTRAVENOUS, ONCE, 1 dose, On Mon10/01/21 at 0800 Given 10/01/2021 8:02 AM EDT 8 mg PACLitaxel-Protein Bound 500 mg in empty bag Total Volume 100 mL (ABRAXANE) 500 mg, INTRAVENOUS, at 200 mL/hr, Administer over 30 Minutes, ONCE, 1 dose, On Mon10/01/21 at 0800, exp 0900 10/02/21 (room temp)- infuse via syringe pump Administer total dose over 30 minutes.- total dose - 595.5mg today Hazardous Chemotherapy Drug: Use link to view personal protective equipment (PPE) guidelines. Antineoplastic Irritant with Vesicant Potential. Total Volume. New Bag/Syringe/Mary le 10/01/2021 9:15 AM EDT 500 mg 200 mL/hr PACLitaxel-protein bound 95.5 mg in NaCl 0.9% (ABRAXANE) 95.5 mg, INTRAVENOUS, at 38.2 mL/hr, Administer over 30 Minutes, ONCE, 1 dose, On Mon10/01/21 at 0800, exp 0800 10/02/21 (room temp) - infuse via syringe pump - syringe 1 of 4 Administer total dose over 30 minutes. - total dose 595.5 mg today Hazardous Chemotherapy Drug: Use appropriate PPE. Antineoplastic Irritant with Vesicant Potential. New Bag/Syringe/Mary le 10/01/2021 8:32 AM EDT 95.5 mg 38.2 mL/hr pegfilgrastim 6 mg wearable injection (NEULASTA ONPRO) 6 mg, SUBCUTANEOUS, ONCE, 1 dose, On Mon10/01/21 at 0800 Given 10/01/2021 9:48 AM EDT 6 mg Arm, Right Inactive Administered Medications - up to 3 most recent administrations Medication Order MAR Action Action Date Dose Rate Site ondansetron (PF) 8 mg injection (ZOFRAN) 8 mg, INTRAVENOUS, ONCE, 1 dose, On Mon10/22/21 at 1100 Given 10/22/2021 10:45 AM EDT 8 mg PACLitaxel-protein bound 229 mg in NaCl 0.9% (ABRAXANE) 229 mg (100 mg/m2 2.29 m2 Treatment Plan BSA from Recorded weight), INTRAVENOUS, at 91.6 mL/hr, Administer over 30 Minutes, ONCE, 1 dose, On Mon10/22/21 at 1100, exp 1100 10/23/21 (room temp) - infuse via syringe pump Administer total dose over 30 minutes. Hazardous Chemotherapy Drug: Use appropriate PPE. Antineoplastic Irritant with Vesicant Potential. New Bag/Syringe/Bottle 10/22/2021 10:54 AM EDT 229 mg 91.6 mL/hr Inactive Administered Medications - up to 3 most recent administrations Medication Order MAR Action Action Date Dose Rate Site dexAMETHasone sodium phosphate 8 mg injection (DECADRON) 8 mg, INTRAVENOUS, Administer over 15 Minutes, ONCE, 1 dose, On Mon10/29/21 at 0830, Administer 30 minutes prior to infusion. Given 10/29/2021 8:41 AM EDT 8 mg ondansetron (PF) 8 mg injection (ZOFRAN) 8 mg, INTRAVENOUS, ONCE, 1 dose, On Mon10/29/21 at 0830 Given 10/29/2021 8:36 AM EDT 8 mg PACLitaxel-protein bound 229 mg in NaCl 0.9% (ABRAXANE) 229 mg (100 mg/m2 2.29 m2 Treatment Plan BSA from Recorded weight), INTRAVENOUS, at 91.6 mL/hr, Administer over 30 Minutes, ONCE, 1 dose, On Mon10/29/21 at 0830, exp 0900 11/01/21 (room temp)- infuse via syringe pump Administer total dose over 30 minutes. Hazardous Chemotherapy Drug: Use appropriate PPE. Antineoplastic Irritant with Vesicant Potential. New Bag/Syringe/Bottle 10/29/2021 9:13 AM EDT 229 mg 91.6 mL/hr Inactive Administered Medications - up to 3 most recent administrations Medication Order MAR Action Action Date Dose Rate Site ondansetron (PF) 8 mg injection (ZOFRAN) 8 mg, INTRAVENOUS, ONCE, 1 dose, On Mon11/05/21 at 1030 Given 11/05/2021 10:29 AM EDT 8 mg PACLitaxel-protein bound 229 mg in NaCl 0.9% (ABRAXANE) 229 mg (100 mg/m2 2.29 m2 Treatment Plan BSA from Recorded weight), INTRAVENOUS, at 91.6 mL/hr, Administer over 30 Minutes, ONCE, 1 dose, On Mon11/05/21 at 1030, exp 1100 11/06/21 (room temp) -infuse via syringe pump Administer total dose over 30 minutes. Hazardous Chemotherapy Drug: Use appropriate PPE. Antineoplastic Irritant with Vesicant Potential. New Bag/Syringe/Bottle 11/05/2021 11:05 AM EDT 229 mg 91.6 mL/hr Inactive Administered Medications - up to 3 most recent administrations Medication Order MAR Action Action Date Dose Rate Site ondansetron (PF) 8 mg injection (ZOFRAN) 8 mg, INTRAVENOUS, ONCE, 1 dose, On Mon11/19/21 at 0900 Given 11/19/2021 9:05 AM EDT 8 mg PACLitaxel-protein bound 229 mg in NaCl 0.9% (ABRAXANE) 229 mg (100 mg/m2 2.29 m2 Treatment Plan BSA from Recorded weight), INTRAVENOUS, at 91.6 mL/hr, Administer over 30 Minutes, ONCE, 1 dose, On Mon11/19/21 at 0900, exp 0900 11/20/21 (room temp)- infuse via syringe pump Administer total dose over 30 minutes. Hazardous Chemotherapy Drug: Use appropriate PPE. Antineoplastic Irritant with Vesicant Potential. New Bag/Syringe/Bottle 11/19/2021 9:51 AM EDT 229 mg 91.6 mL/hr Inactive Administered Medications - up to 3 most recent administrations Medication Order MAR Action Action Date Dose Rate Site leuprolide 3.75 mg injection (LUPRON DEPOT) 3.75 mg, INTRAMUSCULAR, ONCE, 1 dose, On Mon03/23/22 at 1430, Hazardous Chemotherapy Drug: Use appropriate PPE. Given 03/23/2022 2:23 PM EDT 3.75 mg Buttocks, Left Inactive Administered Medications - up to 3 most recent administrations Medication Order MAR Action Action Date Dose Rate Site leuprolide 3.75 mg injection (LUPRON DEPOT) 3.75 mg, INTRAMUSCULAR, ONCE, 1 dose, On Mon04/20/22 at 0900, Hazardous Chemotherapy Drug: Use appropriate PPE. Given 04/20/2022 8:43 AM EST 3.75 mg Buttocks, Right Inactive Administered Medications - up to 3 most recent administrations Medication Order MAR Action Action Date Dose Rate Site acetaminophen 650 mg tab(s) (TYLENOL) 650 mg, ORAL, ONCE, 1 dose, On Mon07/15/22 at 1500, Give 30 minutes before infusion. No more than 4000 mg of acetaminophen should be given per day (FROM ALL SOURCES), If ordered PRN for pain, patient/guardian may elect to receive this medication for higher pain levels INSTEAD of the opioid, if preferred: N/A Given 07/15/2022 2:58 PM EST 650 mg zoledronic [id number] 4 mg iv piggyback 100 mL (ZOMETA) 4 mg, INTRAVENOUS, Administer over 15 Minutes, ONCE, 1 dose, On Mon07/15/22 at 1530, Hazardous Potential Reproductive Risk Drug: Use appropriate PPE. New Bag/Syringe/Bottle 07/15/2022 3:32 PM EST 4 mg Reason for Referral Specialty Diagnoses / Procedures Referred By Jeramy sanchez Referred To Contact MR IMAGING Diagnoses 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, estrogen receptor positive (HCC) Procedures MRI BREAST WO/W IVCON BILAT MRI BREAST WITHOUT&WITH CONTRAST W/CAD BILATERAL Garry Santos MD [address] [address] Mr Imaging Referral ID Status Reason Start Date Expiration Date Visits Requested Visits Authorized [id number] Pending Review Auto-Generat ed Referral 11/29/2021 12/03/2022 1 1 Referral ID Status Reason Start Date Expiration Date V isits Requested Visits Authorized [id number] Closed Auto-Generate d Referral 11/17/2021 12/17/2021 1 1 Specialty Diagnoses / Procedures Referred By Contac t Referred To Contact [facility] Diagnoses History of bilateral breast cancer Procedures CONSULT TO LYMPHEDEMA THERAPY OFFICE/OUTPATIENT [facility] 60-74 MINUTES Garry Santos MD 1 [facility][1] [address] [place] [address] [facility] [place] [address] [place] [address] Referral ID Status Reason Start Date Expiration Date Visits Requested Visits Authorized [id number] Authorized Auto-Generat ed Referral 02/04/2022 02/04/2023 1 1 Specialty Diagnoses / Procedures Referred By Contac t Referred To Contact CT IMAGING Diagnoses 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, estrogen receptor positive (HCC) Lung nodules Procedures CT CHEST W IVCON DIAGNOSTIC COMPUTED TOMOGRAPHY THORAX W/CONTRAST Rachid Moore DO [address] [place] [address] Ct Imaging Referral ID Status Reason Start Date Expiration Date Visits Requested Visits Authorized [id number] Pending Review Auto-Generat ed Referral 02/16/2022 03/18/2023 1 1 Specialty Diagnoses / Procedures Referred By Contac t Referred To Contact Orthopedics Diagnoses Left arm pain 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, estrogen receptor positive (HCC) History of mastectomy, bilateral Procedures CONSULT TO ORTHOPAEDICS OFFICE/OUTPATIENT [facility] 60-74 MINUTES Ashley Berg APRN.DISPLAYER [address] [place] [address] Referral ID Status Reason Start Date Expiration Date Visits Requested Visits Authorized [id number] Authorized PCP Requested Referral 11/30/2022 11/30/2023 1 1 Chief Complaint and Reason for Visit Chief Complaint SOB Chief Complaint SOB surgical consult (oophrectomy) LBO LAP OOPHERECTOMY BILAT PROPHYLACTIC LAP OOPHERECTOMY BILAT PROPHYLACTIC Reason for Visit Bilateral breast can cer High risk factor score for venous thromboembolism (VTE) Bilateral breast cancer High risk factor score for venous thromboembolism (VTE) Chief Complaint surgical consult (oo phrectomy) LBO LAP OOPHERECTOMY BILAT PROPHYLACTIC LAP OOPHERECTOMY BILAT PROPHYLACTIC 3 week post op weight management consult Reason for Visit Bilateral breast can cer High risk factor score for venous thromboembolism (VTE) Bilateral breast cancer High risk factor score for venous thromboembolism (VTE) Bilateral breast cancer High risk factor score for venous thromboembolism (VTE) Bilateral breast cancer BMI 39.0-39.9,adult Hyperlipidemia Other obesity Chief Complaint ABD PAIN Family History No Family History Records Found Relationship Condition Age at Onset Recorded Date/T jaycee Not Specified Mass of breast Unknown grandmother Malignant neoplasm of breast Unknown Diabetes mellitus Unknown mother Hypertension Unknown grandfather Diabetes mellitus Unknown Relationship Condition Age at Onset Recorded Date/T jaycee Not Specified Mass of breast Unknown grandmother Malignant neoplasm of breast Unknown Diabetes mellitus Unknown Malignant neoplasm of uterus Unknown Malignant neoplasm of ovary Unknown mother Hypertension Unknown grandfather Diabetes mellitus Unknown Advance Directives No Advanced Directives Records Found Advance Directive Response Recorded Date/ Time Living Will No February 16 1:48pm Power of Business And Marketing Teacher No February 16, 2022 1:48pm Advance Directive Response Recorded Date/ Time Living Will No May 13 1:28pm Power of Business And Marketing Teacher No May 13, 2022 1:28pm Advance Directive Response Recorded Date/ Time Living Will No April 06 9:40pm Power of Business And Marketing Teacher No April 06, 2023 9:40pm Health Concerns Infection Onset Date Last Indicated Resolved Time COVID-19 Rule-Out 03/02/2022 03/02/2022 Infection Onset Date Last Indicated Resolved Time COVID-19 Rule-Out 03/02/2022 03/02/2022 03/02/2022 9:02 PM EDT COVID-19 Confirmed 03/02/2022 03/02/2022 Infection Onset Date Last Indicated Resolved Time COVID-19 Confirmed 03/02/2022 03/02/2022 Infection Onset Date Last Indicated Resolved Time COVID-19 Rule-Out 03/31/2023 03/31/2023 Infection Onset Date Last Indicated Resolved Time COVID-19 Confirmed 03/31/2023 03/31/2023 Summary Purpose Additional Source Comments Source Comments (unrecognize d section and content) In the event this informatio n is protected by the Federal Confidentiality of Alcohol and Drug Abuse Patient Records regulations: The Federal rules restrict any use of the information to criminally investigate or prosecute any alcohol or drug abuse patient.[facility] the event this information is protected by the Federal Confidentiality of Alcohol and Drug Abuse Patient Records regulations: The Federal rules restrict any use of the information to criminally investigate or prosecute any alcohol or drug abuse patient.[facility] the event this information is protected by the Federal Confidentiality of Alcohol and Drug Abuse Patient Records regulations: The Federal rules restrict any use of the information to criminally investigate or prosecute any alcohol or drug abuse patient.[facility] the event this information is protected by the Federal Confidentiality of Alcohol and Drug Abuse Patient Records regulations: The Federal rules restrict any use of the information to criminally investigate or prosecute any alcohol or drug abuse patient.[facility] the event this information is protected by the Federal Confidentiality of Alcohol and Drug Abuse Patient Records regulations: The Federal rules restrict any use of the information to criminally investigate or prosecute any alcohol or drug abuse patient.[facility] the event this information is protected by the Federal Confidentiality of Alcohol and Drug Abuse Patient Records regulations: The Federal rules restrict any use of the information to criminally investigate or prosecute any alcohol or drug abuse patient.[facility] the event this information is protected by the Federal Confidentiality of Alcohol and Drug Abuse Patient Records regulations: The Federal rules restrict any use of the information to criminally investigate or prosecute any alcohol or drug abuse patient.[facility] the event this information is protected by the Federal Confidentiality of Alcohol and Drug Abuse Patient Records regulations: The Federal rules restrict any use of the information to criminally investigate or prosecute any alcohol or drug abuse patient.[facility] the event this information is protected by the Federal Confidentiality of Alcohol and Drug Abuse Patient Records regulations: The Federal rules restrict any use of the information to criminally investigate or prosecute any alcohol or drug abuse patient.[facility] the event this information is protected by the Federal Confidentiality of Alcohol and Drug Abuse Patient Records regulations: The Federal rules restrict any use of the information to criminally investigate or prosecute any alcohol or drug abuse patient.[facility] the event this information is protected by the Federal Confidentiality of Alcohol and Drug Abuse Patient Records regulations: The Federal rules restrict any use of the information to criminally investigate or prosecute any alcohol or drug abuse patient.[facility] the event this information is protected by the Federal Confidentiality of Alcohol and Drug Abuse Patient Records regulations: The Federal rules restrict any use of the information to criminally investigate or prosecute any alcohol or drug abuse patient.[facility] the event this information is protected by the Federal Confidentiality of Alcohol and Drug Abuse Patient Records regulations: The Federal rules restrict any use of the information to criminally investigate or prosecute any alcohol or drug abuse patient.[facility] the event this information is protected by the Federal Confidentiality of Alcohol and Drug Abuse Patient Records regulations: The Federal rules restrict any use of the information to criminally investigate or prosecute any alcohol or drug abuse patient.[facility] CampusIn the event this information is protected by the Federal Confidentiality of Alcohol and Drug Abuse Patient Records regulations: The Federal rules restrict any use of the information to criminally investigate or prosecute any alcohol or drug abuse patient.[facility] [place] [facility]In the event this information is protected by the Federal Confidentiality of Alcohol and Drug Abuse Patient Records regulations: The Federal rules restrict any use of the information to criminally investigate or prosecute any alcohol or drug abuse patient.[facility] [place] [facility]In the event this information is protected by the Federal Confidentiality of Alcohol and Drug Abuse Patient Records regulations: The Federal rules restrict any use of the information to criminally investigate or prosecute any alcohol or drug abuse patient.[facility] [place] [facility]In the event this information is protected by the Federal Confidentiality of Alcohol and Drug Abuse Patient Records regulations: The Federal rules restrict any use of the information to criminally investigate or prosecute any alcohol or drug abuse patient.[facility] [place] [facility]In the event this information is protected by the Federal Confidentiality of Alcohol and Drug Abuse Patient Records regulations: The Federal rules restrict any use of the information to criminally investigate or prosecute any alcohol or drug abuse patient.[facility] [place] CampusIn the event this information is protected by the Federal Confidentiality of Alcohol and Drug Abuse Patient Records regulations: The Federal rules restrict any use of the information to criminally investigate or prosecute any alcohol or drug abuse patient.[facility] [place] CampusIn the event this information is protected by the Federal Confidentiality of Alcohol and Drug Abuse Patient Records regulations: The Federal rules restrict any use of the information to criminally investigate or prosecute any alcohol or drug abuse patient.[facility] [place] CampusIn the event this information is protected by the Federal Confidentiality of Alcohol and Drug Abuse Patient Records regulations: The Federal rules restrict any use of the information to criminally investigate or prosecute any alcohol or drug abuse patient.[facility] [place] [facility]In the event this information is protected by the Federal Confidentiality of Alcohol and Drug Abuse Patient Records regulations: The Federal rules restrict any use of the information to criminally investigate or prosecute any alcohol or drug abuse patient.[facility] [place] CampusIn the event this information is protected by the Federal Confidentiality of Alcohol and Drug Abuse Patient Records regulations: The Federal rules restrict any use of the information to criminally investigate or prosecute any alcohol or drug abuse patient.[facility] [place] [facility]In the event this information is protected by the Federal Confidentiality of Alcohol and Drug Abuse Patient Records regulations: The Federal rules restrict any use of the information to criminally investigate or prosecute any alcohol or drug abuse patient.[facility] [place] CampusIn the event this information is protected by the Federal Confidentiality of Alcohol and Drug Abuse Patient Records regulations: The Federal rules restrict any use of the information to criminally investigate or prosecute any alcohol or drug abuse patient.[facility] [place] CampusIn the event this information is protected by the Federal Confidentiality of Alcohol and Drug Abuse Patient Records regulations: The Federal rules restrict any use of the information to criminally investigate or prosecute any alcohol or drug abuse patient.[facility] [place] CampusIn the event this information is protected by the Federal Confidentiality of Alcohol and Drug Abuse Patient Records regulations: The Federal rules restrict any use of the information to criminally investigate or prosecute any alcohol or drug abuse patient.[facility] [place] CampusIn the event this information is protected by the Federal Confidentiality of Alcohol and Drug Abuse Patient Records regulations: The Federal rules restrict any use of the information to criminally investigate or prosecute any alcohol or drug abuse patient.[facility] [place] CampusIn the event this information is protected by the Federal Confidentiality of Alcohol and Drug Abuse Patient Records regulations: The Federal rules restrict any use of the information to criminally investigate or prosecute any alcohol or drug abuse patient.[facility] [place] CampusIn the event this information is protected by the Federal Confidentiality of Alcohol and Drug Abuse Patient Records regulations: The Federal rules restrict any use of the information to criminally investigate or prosecute any alcohol or drug abuse patient.[facility] [place] CampusIn the event this information is protected by the Federal Confidentiality of Alcohol and Drug Abuse Patient Records regulations: The Federal rules restrict any use of the information to criminally investigate or prosecute any alcohol or drug abuse patient.[facility] [place] CampusIn the event this information is protected by the Federal Confidentiality of Alcohol and Drug Abuse Patient Records regulations: The Federal rules restrict any use of the information to criminally investigate or prosecute any alcohol or drug abuse patient.[facility] [place] CampusIn the event this information is protected by the Federal Confidentiality of Alcohol and Drug Abuse Patient Records regulations: The Federal rules restrict any use of the information to criminally investigate or prosecute any alcohol or drug abuse patient.[facility] [place] CampusIn the event this information is protected by the Federal Confidentiality of Alcohol and Drug Abuse Patient Records regulations: The Federal rules restrict any use of the information to criminally investigate or prosecute any alcohol or drug abuse patient.[facility] [place] CampusIn the event this information is protected by the Federal Confidentiality of Alcohol and Drug Abuse Patient Records regulations: The Federal rules restrict any use of the information to criminally investigate or prosecute any alcohol or drug abuse patient.[facility] [place] CampusIn the event this information is protected by the Federal Confidentiality of Alcohol and Drug Abuse Patient Records regulations: The Federal rules restrict any use of the information to criminally investigate or prosecute any alcohol or drug abuse patient.[facility] [place] CampusIn the event this information is protected by the Federal Confidentiality of Alcohol and Drug Abuse Patient Records regulations: The Federal rules restrict any use of the information to criminally investigate or prosecute any alcohol or drug abuse patient.[facility] [place] CampusIn the event this information is protected by the Federal Confidentiality of Alcohol and Drug Abuse Patient Records regulations: The Federal rules restrict any use of the information to criminally investigate or prosecute any alcohol or drug abuse patient.[facility] [place] CampusIn the event this information is protected by the Federal Confidentiality of Alcohol and Drug Abuse Patient Records regulations: The Federal rules restrict any use of the information to criminally investigate or prosecute any alcohol or drug abuse patient.[facility] [place] CampusIn the event this information is protected by the Federal Confidentiality of Alcohol and Drug Abuse Patient Records regulations: The Federal rules restrict any use of the information to criminally investigate or prosecute any alcohol or drug abuse patient.[facility] [place] CampusIn the event this information is protected by the Federal Confidentiality of Alcohol and Drug Abuse Patient Records regulations: The Federal rules restrict any use of the information to criminally investigate or prosecute any alcohol or drug abuse patient.[facility] [place] CampusIn the event this information is protected by the Federal Confidentiality of Alcohol and Drug Abuse Patient Records regulations: The Federal rules restrict any use of the information to criminally investigate or prosecute any alcohol or drug abuse patient.[facility] [place] CampusIn the event this information is protected by the Federal Confidentiality of Alcohol and Drug Abuse Patient Records regulations: The Federal rules restrict any use of the information to criminally investigate or prosecute any alcohol or drug abuse patient.[facility] [place] CampusIn the event this information is protected by the Federal Confidentiality of Alcohol and Drug Abuse Patient Records regulations: The Federal rules restrict any use of the information to criminally investigate or prosecute any alcohol or drug abuse patient.[facility] [place] CampusIn the event this information is protected by the Federal Confidentiality of Alcohol and Drug Abuse Patient Records regulations: The Federal rules restrict any use of the information to criminally investigate or prosecute any alcohol or drug abuse patient.[facility] [place] CampusIn the event this information is protected by the Federal Confidentiality of Alcohol and Drug Abuse Patient Records regulations: The Federal rules restrict any use of the information to criminally investigate or prosecute any alcohol or drug abuse patient.[facility] [place] CampusIn the event this information is protected by the Federal Confidentiality of Alcohol and Drug Abuse Patient Records regulations: The Federal rules restrict any use of the information to criminally investigate or prosecute any alcohol or drug abuse patient.[facility] [place] CampusIn the event this information is protected by the Federal Confidentiality of Alcohol and Drug Abuse Patient Records regulations: The Federal rules restrict any use of the information to criminally investigate or prosecute any alcohol or drug abuse patient.[facility] [place] CampusIn the event this information is protected by the Federal Confidentiality of Alcohol and Drug Abuse Patient Records regulations: The Federal rules restrict any use of the information to criminally investigate or prosecute any alcohol or drug abuse patient.[facility] [place] CampusIn the event this information is protected by the Federal Confidentiality of Alcohol and Drug Abuse Patient Records regulations: The Federal rules restrict any use of the information to criminally investigate or prosecute any alcohol or drug abuse patient.[facility] [place] CampusIn the event this information is protected by the Federal Confidentiality of Alcohol and Drug Abuse Patient Records regulations: The Federal rules restrict any use of the information to criminally investigate or prosecute any alcohol or drug abuse patient.[facility] [place] CampusIn the event this information is protected by the Federal Confidentiality of Alcohol and Drug Abuse Patient Records regulations: The Federal rules restrict any use of the information to criminally investigate or prosecute any alcohol or drug abuse patient.[facility] [place] CampusIn the event this information is protected by the Federal Confidentiality of Alcohol and Drug Abuse Patient Records regulations: The Federal rules restrict any use of the information to criminally investigate or prosecute any alcohol or drug abuse patient.[facility] [place] CampusIn the event this information is protected by the Federal Confidentiality of Alcohol and Drug Abuse Patient Records regulations: The Federal rules restrict any use of the information to criminally investigate or prosecute any alcohol or drug abuse patient.[facility] [place] CampusIn the event this information is protected by the Federal Confidentiality of Alcohol and Drug Abuse Patient Records regulations: The Federal rules restrict any use of the information to criminally investigate or prosecute any alcohol or drug abuse patient.[facility] [place] CampusIn the event this information is protected by the Federal Confidentiality of Alcohol and Drug Abuse Patient Records regulations: The Federal rules restrict any use of the information to criminally investigate or prosecute any alcohol or drug abuse patient.[facility] [place] CampusIn the event this information is protected by the Federal Confidentiality of Alcohol and Drug Abuse Patient Records regulations: The Federal rules restrict any use of the information to criminally investigate or prosecute any alcohol or drug abuse patient.[facility] [place] CampusIn the event this information is protected by the Federal Confidentiality of Alcohol and Drug Abuse Patient Records regulations: The Federal rules restrict any use of the information to criminally investigate or prosecute any alcohol or drug abuse patient.[facility] [place] CampusIn the event this information is protected by the Federal Confidentiality of Alcohol and Drug Abuse Patient Records regulations: The Federal rules restrict any use of the information to criminally investigate or prosecute any alcohol or drug abuse patient.[facility] [place] CampusIn the event this information is protected by the Federal Confidentiality of Alcohol and Drug Abuse Patient Records regulations: The Federal rules restrict any use of the information to criminally investigate or prosecute any alcohol or drug abuse patient.[facility] [place] CampusIn the event this information is protected by the Federal Confidentiality of Alcohol and Drug Abuse Patient Records regulations: The Federal rules restrict any use of the information to criminally investigate or prosecute any alcohol or drug abuse patient.[facility] [place] CampusIn the event this information is protected by the Federal Confidentiality of Alcohol and Drug Abuse Patient Records regulations: The Federal rules restrict any use of the information to criminally investigate or prosecute any alcohol or drug abuse patient.[facility] [place] CampusIn the event this information is protected by the Federal Confidentiality of Alcohol and Drug Abuse Patient Records regulations: The Federal rules restrict any use of the information to criminally investigate or prosecute any alcohol or drug abuse patient.[facility] [place] CampusIn the event this information is protected by the Federal Confidentiality of Alcohol and Drug Abuse Patient Records regulations: The Federal rules restrict any use of the information to criminally investigate or prosecute any alcohol or drug abuse patient.[facility] [place] CampusIn the event this information is protected by the Federal Confidentiality of Alcohol and Drug Abuse Patient Records regulations: The Federal rules restrict any use of the information to criminally investigate or prosecute any alcohol or drug abuse patient.[facility] [place] CampusIn the event this information is protected by the Federal Confidentiality of Alcohol and Drug Abuse Patient Records regulations: The Federal rules restrict any use of the information to criminally investigate or prosecute any alcohol or drug abuse patient.[facility] [place] CampusIn the event this information is protected by the Federal Confidentiality of Alcohol and Drug Abuse Patient Records regulations: The Federal rules restrict any use of the information to criminally investigate or prosecute any alcohol or drug abuse patient.[facility] [place] CampusIn the event this information is protected by the Federal Confidentiality of Alcohol and Drug Abuse Patient Records regulations: The Federal rules restrict any use of the information to criminally investigate or prosecute any alcohol or drug abuse patient.[facility] [place] CampusIn the event this information is protected by the Federal Confidentiality of Alcohol and Drug Abuse Patient Records regulations: The Federal rules restrict any use of the information to criminally investigate or prosecute any alcohol or drug abuse patient.[facility] [place] CampusIn the event this information is protected by the Federal Confidentiality of Alcohol and Drug Abuse Patient Records regulations: The Federal rules restrict any use of the information to criminally investigate or prosecute any alcohol or drug abuse patient.[facility] [place] CampusIn the event this information is protected by the Federal Confidentiality of Alcohol and Drug Abuse Patient Records regulations: The Federal rules restrict any use of the information to criminally investigate or prosecute any alcohol or drug abuse patient.[facility] [place] CampusIn the event this information is protected by the Federal Confidentiality of Alcohol and Drug Abuse Patient Records regulations: The Federal rules restrict any use of the information to criminally investigate or prosecute any alcohol or drug abuse patient.[facility] [place] CampusIn the event this information is protected by the Federal Confidentiality of Alcohol and Drug Abuse Patient Records regulations: The Federal rules restrict any use of the information to criminally investigate or prosecute any alcohol or drug abuse patient.[facility] [place] CampusIn the event this information is protected by the Federal Confidentiality of Alcohol and Drug Abuse Patient Records regulations: The Federal rules restrict any use of the information to criminally investigate or prosecute any alcohol or drug abuse patient.[facility] [place] CampusIn the event this information is protected by the Federal Confidentiality of Alcohol and Drug Abuse Patient Records regulations: The Federal rules restrict any use of the information to criminally investigate or prosecute any alcohol or drug abuse patient.[facility] [place] CampusIn the event this information is protected by the Federal Confidentiality of Alcohol and Drug Abuse Patient Records regulations: The Federal rules restrict any use of the information to criminally investigate or prosecute any alcohol or drug abuse patient.[facility] [place] CampusIn the event this information is protected by the Federal Confidentiality of Alcohol and Drug Abuse Patient Records regulations: The Federal rules restrict any use of the information to criminally investigate or prosecute any alcohol or drug abuse patient.[facility] [place] CampusIn the event this information is protected by the Federal Confidentiality of Alcohol and Drug Abuse Patient Records regulations: The Federal rules restrict any use of the information to criminally investigate or prosecute any alcohol or drug abuse patient.[facility] [place] CampusIn the event this information is protected by the Federal Confidentiality of Alcohol and Drug Abuse Patient Records regulations: The Federal rules restrict any use of the information to criminally investigate or prosecute any alcohol or drug abuse patient.[facility] [place] CampusIn the event this information is protected by the Federal Confidentiality of Alcohol and Drug Abuse Patient Records regulations: The Federal rules restrict any use of the information to criminally investigate or prosecute any alcohol or drug abuse patient.[facility] [place] CampusIn the event this information is protected by the Federal Confidentiality of Alcohol and Drug Abuse Patient Records regulations: The Federal rules restrict any use of the information to criminally investigate or prosecute any alcohol or drug abuse patient.[facility] [place] CampusIn the event this information is protected by the Federal Confidentiality of Alcohol and Drug Abuse Patient Records regulations: The Federal rules restrict any use of the information to criminally investigate or prosecute any alcohol or drug abuse patient.[facility] [place] CampusIn the event this information is protected by the Federal Confidentiality of Alcohol and Drug Abuse Patient Records regulations: The Federal rules restrict any use of the information to criminally investigate or prosecute any alcohol or drug abuse patient.[facility] [place] CampusIn the event this information is protected by the Federal Confidentiality of Alcohol and Drug Abuse Patient Records regulations: The Federal rules restrict any use of the information to criminally investigate or prosecute any alcohol or drug abuse patient.[facility] [place] CampusIn the event this information is protected by the Federal Confidentiality of Alcohol and Drug Abuse Patient Records regulations: The Federal rules restrict any use of the information to criminally investigate or prosecute any alcohol or drug abuse patient.[facility] [place] CampusIn the event this information is protected by the Federal Confidentiality of Alcohol and Drug Abuse Patient Records regulations: The Federal rules restrict any use of the information to criminally investigate or prosecute any alcohol or drug abuse patient.[facility] [place] CampusIn the event this information is protected by the Federal Confidentiality of Alcohol and Drug Abuse Patient Records regulations: The Federal rules restrict any use of the information to criminally investigate or prosecute any alcohol or drug abuse patient.[facility] [place] CampusIn the event this information is protected by the Federal Confidentiality of Alcohol and Drug Abuse Patient Records regulations: The Federal rules restrict any use of the information to criminally investigate or prosecute any alcohol or drug abuse patient.[facility] [place] CampusIn the event this information is protected by the Federal Confidentiality of Alcohol and Drug Abuse Patient Records regulations: The Federal rules restrict any use of the information to criminally investigate or prosecute any alcohol or drug abuse patient.[facility] [place] CampusIn the event this information is protected by the Federal Confidentiality of Alcohol and Drug Abuse Patient Records regulations: The Federal rules restrict any use of the information to criminally investigate or prosecute any alcohol or drug abuse patient.[facility] [place] CampusIn the event this information is protected by the Federal Confidentiality of Alcohol and Drug Abuse Patient Records regulations: The Federal rules restrict any use of the information to criminally investigate or prosecute any alcohol or drug abuse patient.[facility] [place] CampusIn the event this information is protected by the Federal Confidentiality of Alcohol and Drug Abuse Patient Records regulations: The Federal rules restrict any use of the information to criminally investigate or prosecute any alcohol or drug abuse patient.[facility] [place] CampusIn the event this information is protected by the Federal Confidentiality of Alcohol and Drug Abuse Patient Records regulations: The Federal rules restrict any use of the information to criminally investigate or prosecute any alcohol or drug abuse patient.[facility] [place] CampusIn the event this information is protected by the Federal Confidentiality of Alcohol and Drug Abuse Patient Records regulations: The Federal rules restrict any use of the information to criminally investigate or prosecute any alcohol or drug abuse patient.[facility] CampusIn the event this information is protected by the Federal Confidentiality of Alcohol and Drug Abuse Patient Records regulations: The Federal rules restrict any use of the information to criminally investigate or prosecute any alcohol or drug abuse patient.[facility] CampusIn the event this information is protected by the Federal Confidentiality of Alcohol and Drug Abuse Patient Records regulations: The Federal rules restrict any use of the information to criminally investigate or prosecute any alcohol or drug abuse patient.[facility] CampusIn the event this information is protected by the Federal Confidentiality of Alcohol and Drug Abuse Patient Records regulations: The Federal rules restrict any use of the information to criminally investigate or prosecute any alcohol or drug abuse patient.[facility] CampusIn the event this information is protected by the Federal Confidentiality of Alcohol and Drug Abuse Patient Records regulations: The Federal rules restrict any use of the information to criminally investigate or prosecute any alcohol or drug abuse patient.[facility] [place] CampusIn the event this information is protected by the Federal Confidentiality of Alcohol and Drug Abuse Patient Records regulations: The Federal rules restrict any use of the information to criminally investigate or prosecute any alcohol or drug abuse patient.[facility] [place] CampusIn the event this information is protected by the Federal Confidentiality of Alcohol and Drug Abuse Patient Records regulations: The Federal rules restrict any use of the information to criminally investigate or prosecute any alcohol or drug abuse patient.[facility] [place] CampusIn the event this information is protected by the Federal Confidentiality of Alcohol and Drug Abuse Patient Records regulations: The Federal rules restrict any use of the information to criminally investigate or prosecute any alcohol or drug abuse patient.[facility] [place] CampusIn the event this information is protected by the Federal Confidentiality of Alcohol and Drug Abuse Patient Records regulations: The Federal rules restrict any use of the information to criminally investigate or prosecute any alcohol or drug abuse patient.[facility] [place] CampusIn the event this information is protected by the Federal Confidentiality of Alcohol and Drug Abuse Patient Records regulations: The Federal rules restrict any use of the information to criminally investigate or prosecute any alcohol or drug abuse patient.[facility] [place] CampusIn the event this information is protected by the Federal Confidentiality of Alcohol and Drug Abuse Patient Records regulations: The Federal rules restrict any use of the information to criminally investigate or prosecute any alcohol or drug abuse patient.[facility] [place] CampusIn the event this information is protected by the Federal Confidentiality of Alcohol and Drug Abuse Patient Records regulations: The Federal rules restrict any use of the information to criminally investigate or prosecute any alcohol or drug abuse patient.[facility] [place] CampusIn the event this information is protected by the Federal Confidentiality of Alcohol and Drug Abuse Patient Records regulations: The Federal rules restrict any use of the information to criminally investigate or prosecute any alcohol or drug abuse patient.[facility] [place] CampusIn the event this information is protected by the Federal Confidentiality of Alcohol and Drug Abuse Patient Records regulations: The Federal rules restrict any use of the information to criminally investigate or prosecute any alcohol or drug abuse patient.[facility] [place] CampusIn the event this information is protected by the Federal Confidentiality of Alcohol and Drug Abuse Patient Records regulations: The Federal rules restrict any use of the information to criminally investigate or prosecute any alcohol or drug abuse patient.[facility] [place] CampusIn the event this information is protected by the Federal Confidentiality of Alcohol and Drug Abuse Patient Records regulations: The Federal rules restrict any use of the information to criminally investigate or prosecute any alcohol or drug abuse patient.[facility] [place] CampusIn the event this information is protected by the Federal Confidentiality of Alcohol and Drug Abuse Patient Records regulations: The Federal rules restrict any use of the information to criminally investigate or prosecute any alcohol or drug abuse patient.[facility] [place] CampusIn the event this information is protected by the Federal Confidentiality of Alcohol and Drug Abuse Patient Records regulations: The Federal rules restrict any use of the information to criminally investigate or prosecute any alcohol or drug abuse patient.[facility] [place] CampusIn the event this information is protected by the Federal Confidentiality of Alcohol and Drug Abuse Patient Records regulations: The Federal rules restrict any use of the information to criminally investigate or prosecute any alcohol or drug abuse patient.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, estrogen receptor positive (HCC) Procedures DOXORUBIC HCL 10 MG VL CHEMO CYCLOPHOSPHAMIDE 100 MG INJ PACLITAXEL INJECTION PALONOSETRON HCL FOSAPREPITANT INJECTION INJECTION, PEGFILGRASTIM, EXCLUDES BIOSIMILAR, 0.5 MG Rachid Moore DO [address] [place] [address] [facility] [address] [place] [address] Referral ID Status Reason Start Date Expiration Date V isits Requested Visits Authorized [id number] Authorized 07/02/2021 06/11/2022 99 99 Reason Comments Refill Request Reason Comments Patient Update Reason Onset Date Comments Refill Request 09/23/2021 Specialty Diagnoses / Procedures Referred By Contac t Referred To Contact Diagnoses 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, estrogen receptor positive (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, estrogen receptor positive (HCC) Procedures DOXORUBIC HCL 10 MG VL CHEMO CYCLOPHOSPHAMIDE 100 MG INJ PACLITAXEL INJECTION PALONOSETRON HCL FOSAPREPITANT INJECTION INJECTION, PEGFILGRASTIM, EXCLUDES BIOSIMILAR, 0.5 MG Rachid Moore DO [address] [place] [address] [facility] [address] [place] [address] Referral ID Status Reason Start Date Expiration Date Visits Re quested Visits Authorized [id number] Closed 07/02/2021 06/11/2022 99 99 Reason Comments Nutrition Telephone Specialty Diagnoses / Procedures [facility] Referred To Contact Diagnoses Malignant neoplasm of upper-outer quadrant of left breast in female, estrogen receptor positive (HCC) Malignant neoplasm of overlapping sites of right female breast Procedures PACLITAXEL PROTEIN BOUND INJECTION, PEGFILGRASTIM, EXCLUDES BIOSIMILAR, 0.5 MG Stefan Friedman MD [address] [place] [address] [facility] [address] [place] [address] Referral ID Status Reason Start Date Expiration Date V isits Requested Visits Authorized [id number] Waiting for Response 09/24/2021 12/23/2021 1 1 Reason Comments Make Up Editor - Other C1D1 Post Treat ment Call Referral ID Status Reason Start Date Expiration Date V isits Requested Visits Authorized [id number] Authorized 10/01/2021 10/01/2022 99 99 Reason Comments Orders MRI Breast- Post Liz mo Reason Comments Social Work Services Specialty Diagnoses / Procedures [facility] Referred To Contact Diagnoses Malignant neoplasm of upper-outer quadrant of left breast in female, estrogen receptor positive (HCC) Malignant neoplasm of overlapping sites of right female breast Procedures PACLITAXEL PROTEIN BOUND INJECTION, PEGFILGRASTIM, EXCLUDES BIOSIMILAR, 0.5 MG Stefan Friedman MD [address] [place] [address] [facility] [address] [place] [address] Specialty Diagnoses / Procedures Referred By Jeramy t Referred To Contact MR IMAGING Diagnoses 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, estrogen receptor positive (HCC) Procedures MRI BREAST WO/W IVCON BILAT MRI BREAST WITHOUT&WITH CONTRAST W/CAD BILATERAL Garry Santos MD [address] [address] Mr Imaging Referral ID Status Reason Start Date Expiration Date V isits Requested Visits Authorized [id number] Closed Auto-Generate d Referral 11/17/2021 12/17/2021 1 1 Reason Comments Breast Cancer Reason Comments Orders Reason Comments Post-Op Visit Reason Comments Established Patient Reason Comments Make Up Editor - ED Follow Up Reason Comments Post Op Reason Comments Critical Results D Dimer Reason Comments Recheck Reason Comments PT Eval Specialty Diagnoses / Procedures [facility]erred To Contact [facility] Diagnoses History of bilateral breast cancer Procedures CONSULT TO LYMPHEDEMA THERAPY OFFICE/OUTPATIENT NEW HIGH MDM 60-74 MINUTES Garry Santos MD [address] [address] [facility] [place] [address] [place] [address] Referral ID Status Reason Start Date Expiration Date Visits Requested Visits Authorized [id number] Authorized Auto-Generat ed Referral 02/04/2022 06/11/2022 99 99 Reason Onset Date Comments Simulation Request Form 02/28/2022 Reason Comments Patient Education Reason Comments Patient Question Reason Comments Disability Paperwork Reason Comments Radiotherapy On-treatment Visit Reason Comments Imm/Inj Specialty Diagnoses / Procedures [facility] Referred To Contact Diagnoses 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, estrogen receptor positive (HCC) Procedures LEUPROLIDE ACETATE /3.75 MG Rachid Moore, DO [address] [place] [address] [facility] [address] [place] [address] Referral ID Status Reason Start Date Expiration Date V isits Requested Visits Authorized [id number] Authorized 02/16/2022 02/17/2023 99 99 Reason Comments Future Appointment Reason Comments Question Reason Comments Patient Education Completed radiation Reason Comments AVS Reason Comments Results Reason Comments Zometa Specialty Diagnoses / Procedures Referred By Contac t Referred To Contact Diagnoses Bilateral malignant neoplasm of breast in female, unspecified estrogen receptor status, unspecified site of breast (HCC) Encounter for screening for osteoporosis Procedures INJECTION, ZOLEDRONIC ACID, 1 MG Stefan Friedman MD [address] [place] [address] [facility] [address] [place] [address] Referral ID Status Reason Start Date Expiration Date V isits Requested Visits Authorized [id number] Authorized 03/23/2022 04/20/2023 99 99 Reason Comments Medication Request Reason Comments Make Up Editor - Other Appointment Reason Comments Follow Up Reason Comments Appointment Reason Comments Chart prep Reason Comments Cough Cough, chest congest ion, ST, sinus and GAMEZ x 2 days Reason Comments Non-Chemotherapy Treatment Specialty Diagnoses / Procedures Referred By Contac t Referred To Contact Diagnoses Bilateral malignant neoplasm of breast in female, unspecified estrogen receptor status, unspecified site of breast (HCC) Encounter for screening for osteoporosis Procedures INJECTION, JOSEEDRONIC ACID, 1 MG Stefan Friedman MD [address] [place] [address] [facility] [address] [place] [address] Referral ID Status Reason Start Date Expiration Date V isits Requested Visits Authorized [id number] Authorized 03/23/2022 06/11/2024 99 99 Specialty Diagnoses / Procedures Referred By Contac t Referred To Contact Diagnoses Bilateral malignant neoplasm of breast in female, unspecified estrogen receptor status, unspecified site of breast (HCC) Encounter for screening for osteoporosis Procedures INJECTION, ZOLEDRONIC ACID, 1 MG Stefan Friedman MD [address] [place] [address] Phone: tel: fax: Hematology/Oncology [address] [place] [address] Phone: tel: fax: Referral ID Status Reason Start Date Expiration Date V isits Requested Visits Authorized [id number] Authorized 03/23/2022 06/11/2025 99 99 Care Teams (unrecognized sec tion and content) Top Trimmer Relationship Specialty Start Date End Date Jeanine Caceres MD [address] [place] [address] PCP - General Family Practice 10/02/18 Radha Mckeon MD, [address] [place] [address] Physician Radiation Oncology 06/22/21 Jadiel Mendez MD [address] [place] [address] Surgeon General Surgery 06/14/21 Rachid Moore DO [address] [place] [address] Physician Hematology/Oncology 06/18/21 Corrine Blackmon RN Specialty Make Up Editor Oncology 07/05/21 Top Trimmer Relationship Specialty Start Date End Date Jeanine Caceres MD [address] [place] [address] PCP - General Family Practice 10/02/18 Radha Mckeon MD, MD [address] [place] [address] Physician Radiation Oncology 06/22/21 Jadiel Mendez MD [address] [place] [address] Surgeon General Surgery 06/14/21 Rachid Moore, DO [address] [place] [address] Physician Hematology/Oncology 06/18/21 Corrine Blackmon RN Specialty Make Up Editor Oncology 07/05/21 Top Trimmer Relationship Specialty Start Date End Date Jeanine Caceres MD [address] [place] [address] PCP - General Family Practice 10/02/18 Radha Mckeon MD, [address] [place] [address] Physician Radiation Oncology 06/22/21 Jadiel Mendez MD [address] [place] [address] Surgeon General Surgery 06/14/21 Rachid Moore, DO [address] [place] [address] Physician Hematology/Oncology 06/18/21 Corrine Blackmon RN Specialty Make Up Editor Oncology 07/05/21 Top Trimmer Relationship Specialty Start Date End Date Jeanine Caceres MD [address] [place] [address] PCP - General Family Practice 10/02/18 Radha Mckeon MD, [address] [place] [address] Physician Radiation Oncology 06/22/21 Jadiel Mendez MD [address] [place] [address] Surgeon General Surgery 06/14/21 Rachid Moore, DO [address] [place] [address] Physician Hematology/Oncology 06/18/21 Corrine Blackmon RN Specialty Make Up Editor Oncology 07/05/21 Top Trimmer Relationship Specialty Start Date End Date Jeanine Caceres MD [address] [place] [address] PCP - General Family Practice 10/02/18 Radha Mckeon MD, [address] [place] [address] Physician Radiation Oncology 06/22/21 Jadiel Mendez MD [address] [place] [address] Surgeon General Surgery 06/14/21 Rachid Moore, DO [address] [place] [address] Physician Hematology/Oncology 06/18/21 Corrine Blackmon RN Specialty Make Up Editor Oncology 07/05/21 Top Trimmer Relationship Specialty Start Date End Date Jeanine Caceres MD [address] [place] [address] PCP - General Family Practice 10/02/18 Radha Mckeon MD, [address] [place] [address] Physician Radiation Oncology 06/22/21 Jadiel Mendez MD [address] [place] [address] Surgeon General Surgery 06/14/21 Rachid Moore, DO [address] [place] [address] Physician Hematology/Oncology 06/18/21 Corrine Blackmon RN Specialty Make Up Editor Oncology 07/05/21 Top Trimmer Relationship Specialty Start Date End Date Jeanine Caceres MD [address] [place] [address] PCP - General Family Practice 10/02/18 Radha Mckeon MD, [address] [place] [address] Physician Radiation Oncology 06/22/21 Jadiel Mendez MD [address] [facility] [address] [place] [address] Surgeon General Surgery 06/14/21 Rachid Moore, DO [address] [place] [address] Physician Hematology/Oncology 06/18/21 Corrine Blackmon RN Specialty Make Up Editor Oncology 07/05/21 Top Trimmer Relationship Specialty Start Date End Date Jeanine Caceres MD [address] [place] [address] PCP - General Family Practice 10/02/18 Radha Mckeon MD, [address] [place] [address] Physician Radiation Oncology 06/22/21 Jadiel Mendez MD [address] [facility] [address] [place] [address] Surgeon General Surgery 06/14/21 Rachid Moore, DO [address] [place] [address] Physician Hematology/Oncology 06/18/21 Corrine Blackmon RN Specialty Make Up Editor Oncology 07/05/21 Top Trimmer Relationship Specialty Start Date End Date Jeanine Caceres MD [address] [place] [address] PCP - General Family Practice 10/02/18 Radha Mckeon MD, [address] [place] [address] Physician Radiation Oncology 06/22/21 Jadiel Mendez MD [address] [place] [address] Surgeon General Surgery 06/14/21 Rachid Moore, DO [address] [place] [address] Physician Hematology/Oncology 06/18/21 Corrine Blackmon RN Specialty Make Up Editor Oncology 07/05/21 Top Trimmer Relationship Specialty Start Date End Date Jeanine Caceres MD [address] [place] [address] PCP - General Family Practice 10/02/18 Radha Mckeon MD, [address] [place] [address] Physician Radiation Oncology 06/22/21 Jadiel Mendez MD [address] [place] [address] Surgeon General Surgery 06/14/21 Rachid Moore, DO [address] [place] [address] Physician Hematology/Oncology 06/18/21 Corrine Blackmon RN Specialty Make Up Editor Oncology 07/05/21 Top Trimmer Relationship Specialty Start Date End Date Jeanine Caceres MD [address] [place] [address] PCP - General Family Practice 10/02/18 Radha Mckeon MD, MD [address] [place] [address] Physician Radiation Oncology 06/22/21 Jadiel Mendez MD [address] [place] [address] Surgeon General Surgery 06/14/21 Rachid Moore, DO [address] [place] [address] Physician Hematology/Oncology 06/18/21 Corrine Blackmon RN Specialty Make Up Editor Oncology 07/05/21 Top Trimmer Relationship Specialty Start Date End Date Jeanine Caceres MD [address] [place] [address] PCP - General Family Practice 10/02/18 Radha Mckeon MD, [address] [place] [address] Physician Radiation Oncology 06/22/21 Jadiel Mendez MD [address] [facility] [address] [place] [address] Surgeon General Surgery 06/14/21 Rachid Moore, DO [address] [place] [address] Physician Hematology/Oncology 06/18/21 Corrine Blackmon, RN Specialty Make Up Editor Oncology 07/05/21 Top Trimmer Relationship Specialty Start Date End Date Jeanine Caceres MD [address] [place] [address] PCP - General Family Practice 10/02/18 Radha Mckeon MD, [address] [place] [address] Physician Radiation Oncology 06/22/21 Jadiel Mendez MD [address] [facility] [address] [place] [address] Surgeon General Surgery 06/14/21 Rachid Moore, DO [address] [place] [address] Physician Hematology/Oncology 06/18/21 Corrine Blackmon RN Specialty Make Up Editor Oncology 07/05/21 Bess Grewal LISW Personal Financial Representative 10/21/21 Top Trimmer Relationship Specialty Start Date End Date Jeanine Caceres MD [address] [place] [address] PCP - General Family Practice 10/02/18 Radha Mckeon MD, [address] [place] [address] Physician Radiation Oncology 06/22/21 Jadiel Mendez MD [address] [place] [address] Surgeon General Surgery 06/14/21 Rachid Moore, DO [address] [place] [address] Physician Hematology/Oncology 06/18/21 Corrine Blackmon RN Specialty Make Up Editor Oncology 07/05/21 Bess Grewal LISW Personal Financial Representative 10/21/21 Top Trimmer Relationship Specialty Start Date End Date Jeanine Caceres MD [address] [place] [address] PCP - General Family Practice 10/02/18 Radha Mckeon MD, [address] [place] [address] Physician Radiation Oncology 06/22/21 Jadiel Mendez MD [address] [place] [address] Surgeon General Surgery 06/14/21 Rachid Moore, DO [address] [place] [address] Physician Hematology/Oncology 06/18/21 Corrine Blackmon RN Specialty Make Up Editor Oncology 07/05/21 Bess Grewal LISW Personal Financial Representative 10/21/21 Top Trimmer Relationship Specialty Start Date End Date Jeanine Caceres MD [address] [place] [address] PCP - General Family Practice 10/02/18 Radha Mckeon MD, [address] [place] [address] Physician Radiation Oncology 06/22/21 Jadiel Mendez MD [address] [place] [address] Surgeon General Surgery 06/14/21 Rachid Moore, DO [address] [place] [address] Physician Hematology/Oncology 06/18/21 Corrine Blackmon RN Specialty Make Up Editor Oncology 07/05/21 Bess Grewal LISW Personal Financial Representative 10/21/21 Top Trimmer Relationship Specialty Start Date End Date Jeanine Caceres MD [address] [place] [address] PCP - General Family Practice 10/02/18 Radha Mckeon MD, [address] [place] [address] Physician Radiation Oncology 06/22/21 Jadiel Mendez MD [address] [place] [address] Surgeon General Surgery 06/14/21 Rachid Moore, DO [address] [place] [address] Physician Hematology/Oncology 06/18/21 Corrine Blackmon RN Specialty Make Up Editor Oncology 07/05/21 Bess Grewal LISW Personal Financial Representative 10/21/21 Top Trimmer Relationship Specialty Start Date End Date Jeanine Caceres MD [address] [place] [address] PCP - General Family Practice 10/02/18 Radha Mckeon MD, [address] [place] [address] Physician Radiation Oncology 06/22/21 Jadiel Mendez MD [address] [place] [address] Surgeon General Surgery 06/14/21 Rachid Moore, DO [address] [place] [address] Physician Hematology/Oncology 06/18/21 Corrine Blackmon RN Specialty Make Up Editor Oncology 07/05/21 Bess Grewal LISW Personal Financial Representative 10/21/21 Top Trimmer Relationship Specialty Start Date End Date Jeanine Caceres MD [address] [place] [address] PCP - General Family Practice 10/02/18 Radha Mckeon MD, [address] [place] [address] Physician Radiation Oncology 06/22/21 aJdiel Mendez MD [address] [place] [address] Surgeon General Surgery 06/14/21 Rachid Moore, DO [address] [place] [address] Physician Hematology/Oncology 06/18/21 Corrine Blackmon RN Specialty Make Up Editor Oncology 07/05/21 Bess Grewal LISW Personal Financial Representative 10/21/21 Top Trimmer Relationship Specialty Start Date End Date Jeanine Caceres MD [address] [place] [address] PCP - General Family Practice 10/02/18 Radha Mckeon MD, [address] [place] [address] Physician Radiation Oncology 06/22/21 Jadiel Mendez MD [address] [facility] [address] [place] [address] Surgeon General Surgery 06/14/21 Rachid Moore, [address] [place] [address] Physician Hematology/Oncology 06/18/21 Corrine Blackmon, JOSE Specialty Make Up Editor Oncology 07/05/21 Bess Grewal LISW Personal Financial Representative 10/21/21 Top Trimmer Relationship Specialty Start Date End Date Jeanine Caceres MD [address] [place] [address] PCP - General Family Practice 10/02/18 Radha Mckeon MD, [address] [place] [address] Physician Radiation Oncology 06/22/21 Jadiel Mendez MD [address] [facility] [address] [place] [address] Surgeon General Surgery 06/14/21 Rachid Moore, DO [address] [place] [address] Physician Hematology/Oncology 06/18/21 Corrine Blackmon RN Specialty Make Up Editor Oncology 07/05/21 Bess Grewal LISW Personal Financial Representative 10/21/21 Top Trimmer Relationship Specialty Start Date End Date Jeanine Caceres MD [address] [place] [address] PCP - General Family Practice 10/02/18 Radha Mckeon MD, [address] [place] [address] Physician Radiation Oncology 06/22/21 Jadiel Mendez MD [address] [facility] [address] [place] [address] Surgeon General Surgery 06/14/21 Rachid Moore, DO [address] [place] [address] Physician Hematology/Oncology 06/18/21 Corrine Blackmon RN Specialty Make Up Editor Oncology 07/05/21 Bess Grewal LISW Personal Financial Representative 10/21/21 Top Trimmer Relationship Specialty Start Date End Date Jeanine Caceres MD [address] [place] [address] PCP - General Family Practice 10/02/18 Radha Mckeon MD, [address] [place] [address] Physician Radiation Oncology 06/22/21 Jadiel Mendez MD [address] [facility] [address] [place] [address] Surgeon General Surgery 06/14/21 Rachid Moore, DO [address] [place] [address] Physician Hematology/Oncology 06/18/21 Corrine Blackmon RN Specialty Make Up Editor Oncology 07/05/21 Bess Grewal LISW Personal Financial Representative 10/21/21 Top Trimmer Relationship Specialty Start Date End Date Jeanine Caceres MD [address] [place] [address] PCP - General Family Practice 10/02/18 Radha Mckeon MD, [address] [place] [address] Physician Radiation Oncology 06/22/21 Jadiel Mendez MD [address] [facility] [address] [place] [address] Surgeon General Surgery 06/14/21 Rachid Moore, DO [address] [place] [address] Physician Hematology/Oncology 06/18/21 Corrine Blackmon RN Specialty Make Up Editor Oncology 07/05/21 Bess Grewal LISW Personal Financial Representative 10/21/21 Top Trimmer Relationship Specialty Start Date End Date Jeanine Caceres MD [address] [place] [address] PCP - General Family Practice 10/02/18 Radha Mckeon MD, [address] [place] [address] Physician Radiation Oncology 06/22/21 Jadiel Mendez MD [address] [facility] [address] [place] [address] Surgeon General Surgery 06/14/21 Rachid Moore, DO [address] [place] [address] Physician Hematology/Oncology 06/18/21 Corrine Blackmon RN Specialty Make Up Editor Oncology 07/05/21 Bess Grewal LISW Personal Financial Representative 10/21/21 Top Trimmer Relationship Specialty Start Date End Date Jeanine Caceres MD [address] [place] [address] PCP - General Family Practice 10/02/18 Radha Mckeon MD, [address] [place] [address] Physician Radiation Oncology 06/22/21 Jadiel Mendez MD [address] [facility] [address] [place] [address] Surgeon General Surgery 06/14/21 Rachid Moore, DO [address] [place] [address] Physician Hematology/Oncology 06/18/21 Corrine Blackmon, JOSE Specialty Make Up Editor Oncology 07/05/21 Bess Grewal LISW Personal Financial Representative 10/21/21 Top Trimmer Relationship Specialty Start Date End Date Jeanine Caceres MD [address] [place] [address] PCP - General Family Practice 10/02/18 Radha Mckeon MD, [address] [place] [address] Physician Radiation Oncology 06/22/21 Jadiel Menedz MD [address] [facility] [address] [place] [address] Surgeon General Surgery 06/14/21 Rachid Moore, DO [address] [place] [address] Physician Hematology/Oncology 06/18/21 Corrine Blackmon RN Specialty Make Up Editor Oncology 07/05/21 Bess Grewal LISW Personal Financial Representative 10/21/21 Top Trimmer Relationship Specialty Start Date End Date Jeanine Caceres MD [address] [place] [address] PCP - General Family Practice 10/02/18 Radha Mckeon MD, [address] [place] [address] Physician Radiation Oncology 06/22/21 Jadiel Mendez MD [address] [facility] [address] [place] [address] Surgeon General Surgery 06/14/21 Rachid Moore, DO [address] [place] [address] Physician Hematology/Oncology 06/18/21 Corrine Blackmon RN Specialty Make Up Editor Oncology 07/05/21 Bess Grewal LISW Personal Financial Representative 10/21/21 Top Trimmer Relationship Specialty Start Date End Date Jeanine Caceres MD [address] [place] [address] PCP - General Family Practice 10/02/18 Radha Mckeon MD, [address] [place] [address] Physician Radiation Oncology 06/22/21 Jadiel Mendez MD [address] [facility] [address] [place] [address] Surgeon General Surgery 06/14/21 Rachid Moore, DO [address] [place] [address] Physician Hematology/Oncology 06/18/21 Corrine Blackmon RN Specialty Make Up Editor Oncology 07/05/21 Bess Grewal LISW Personal Financial Representative 10/21/21 Top Trimmer Relationship Specialty Start Date End Date Jeanine Caceres MD [address] [place] [address] PCP - General Family Practice 10/02/18 Radha Mckeon MD, [address] [place] [address] Physician Radiation Oncology 06/22/21 Jadiel Mendez MD [address] [facility] [address] [place] [address] Surgeon General Surgery 06/14/21 Rachid Moore, DO [address] [place] [address] Physician Hematology/Oncology 06/18/21 Corrine Blackmon RN Specialty Make Up Editor Oncology 07/05/21 Bess Grewal, RN Personal Financial Representative 10/21/21 Top Trimmer Relationship Specialty Start Date End Date Jeanine Caceres MD [address] [place] [address] PCP - General Family Practice 10/02/18 Radha Mckeon MD, [address] [place] [address] Physician Radiation Oncology 06/22/21 Jadiel Mendez MD [address] [facility] [address] [place] [address] Surgeon General Surgery 06/14/21 Rachid Moore, DO [address] [place] [address] Physician Hematology/Oncology 06/18/21 Corrine Blackmon RN Specialty Make Up Editor Oncology 07/05/21 Bess Grewal RN Personal Financial Representative 10/21/21 Top Trimmer Relationship Specialty Start Date End Date Jeanine Caceres MD [address] [place] [address] PCP - General Family Practice 10/02/18 Radha Mckeon MD, MD [address] [place] [address] Physician Radiation Oncology 06/22/21 Jadiel Mendez MD [address] [facility] [address] [place] [address] Surgeon General Surgery 06/14/21 Rachid Moore DO [address] [place] [address] Physician Hematology/Oncology 06/18/21 Corrine Blackmon RN Specialty Make Up Editor Oncology 07/05/21 Bess Grewal, JOSE Personal Financial Representative 10/21/21 Top Trimmer Relationship Specialty Start Date End Date Jeanine Caceres MD [address] [place] [address] PCP - General Family Practice 10/02/18 Radha Mckeon MD, [address] [place] [address] Physician Radiation Oncology 06/22/21 Jadiel Mendez MD [address] [facility] [address] [place] [address] Surgeon General Surgery 06/14/21 Rachid Moore DO [address] [place] [address] Physician Hematology/Oncology 06/18/21 Corrine Blackmon RN Specialty Make Up Editor Oncology 07/05/21 Bess Grewal RN Personal Financial Representative 10/21/21 Top Trimmer Relationship Specialty Start Date End Date Jeanine Caceres MD [address] [place] [address] PCP - General Family Practice 10/02/18 Radha Mckeon MD, [address] [place] [address] Physician Radiation Oncology 06/22/21 Jadiel Mendez MD [address] [facility] [address] [place] [address] Surgeon General Surgery 06/14/21 Rachid Moore, DO [address] [place] [address] Physician Hematology/Oncology 06/18/21 Corrine Blackmon RN Specialty Make Up Editor Oncology 07/05/21 Bess Grewal, RN Personal Financial Representative 10/21/21 Top Trimmer Relationship Specialty Start Date End Date Jeanine Caceres MD [address] [place] [address] PCP - General Family Practice 10/02/18 Radha Mckeon MD, [address] [place] [address] Physician Radiation Oncology 06/22/21 Jadiel Mendez MD [address] [facility] [address] [place] [address] Surgeon General Surgery 06/14/21 Rachid Moore, DO [address] [place] [address] Physician Hematology/Oncology 06/18/21 Corrine Blackmon RN Specialty Make Up Editor Oncology 07/05/21 Bess Grewal, RN Personal Financial Representative 10/21/21 Top Trimmer Relationship Specialty Start Date End Date Jeanine Caceres MD [address] [place] [address] PCP - General Family Practice 10/02/18 Radha Mckeon MD, [address] [place] [address] Physician Radiation Oncology 06/22/21 Jadiel Mendez MD [address] [facility] [address] [place] [address] Surgeon General Surgery 06/14/21 Rachid Moore, DO [address] [place] [address] Physician Hematology/Oncology 06/18/21 Corrine Blackmon RN Specialty Make Up Editor Oncology 07/05/21 Bess Grewal, RN Personal Financial Representative 10/21/21 Top Trimmer Relationship Specialty Start Date End Date Jeanine Caceres MD [address] [place] [address] PCP - General Family Medicine 10/02/18 Radha Mckeon MD, [address] [place] [address] Physician Radiation Oncology 06/22/21 Jadiel Mendez MD [address] [facility] [address] [place] [address] Surgeon General Surgery 06/14/21 Rachid Moore, DO [address] [place] [address] Physician Hematology/Oncology 06/18/21 Corrine Blackmon RN Specialty Make Up Editor Oncology 07/05/21 Bess Grewal, JOSE Personal Financial Representative 10/21/21 Top Trimmer Relationship Specialty Start Date End Date Jeanine Caceres MD [address] [place] [address] PCP - General Family Medicine 10/02/18 Radha Mckeon MD, [address] [place] [address] Physician Radiation Oncology 06/22/21 Jadile Mendez MD [address] [facility] [address] [place] [address] Surgeon General Surgery 06/14/21 Rachid Moore, DO [address] [place] [address] Physician Hematology/Oncology 06/18/21 Corrine Blackmon RN Specialty Make Up Editor Oncology 07/05/21 Bess Grewal, JOSE Personal Financial Representative 10/21/21 Top Trimmer Relationship Specialty Start Date End Date Jeanine Caceres MD [address] [place] [address] PCP - General Family Medicine 10/02/18 Radha Mckeon MD, [address] [place] [address] Physician Radiation Oncology 06/22/21 Jadiel Mendez MD [address] [facility] [address] [place] [address] Surgeon General Surgery 06/14/21 Rachid Moore, DO [address] [place] [address] Physician Hematology/Oncology 06/18/21 Corrine Blackmon RN Specialty Make Up Editor Oncology 07/05/21 Bess Grewal RN Personal Financial Representative 10/21/21 Top Trimmer Relationship Specialty Start Date End Date Jeanine Caceres MD [address] [place] [address] PCP - General Family Medicine 10/02/18 Radha Mckeon MD, [address] [place] [address] Physician Radiation Oncology 06/22/21 Jadiel Mendez MD [address] [facility] [address] [place] [address] Surgeon General Surgery 06/14/21 Rachid Moore, DO [address] [place] [address] Physician Hematology/Oncology 06/18/21 Corrine Blackmon RN Specialty Make Up Editor Oncology 07/05/21 Bess Grewal RN Personal Financial Representative 10/21/21 Top Trimmer Relationship Specialty Start Date End Date Jeanine Caceres MD [address] [place] [address] PCP - General Family Medicine 10/02/18 Radha Mckeon MD, [address] [place] [address] Physician Radiation Oncology 06/22/21 Jadiel Mendez MD [address] [facility] [address] [place] [address] Surgeon General Surgery 06/14/21 Rachid Moore, [address] [place] [address] Physician Hematology/Oncology 06/18/21 Corrine Blackmon RN Specialty Make Up Editor Oncology 07/05/21 Bess Grewal RN Personal Financial Representative 10/21/21 Top Trimmer Relationship Specialty Start Date End Date Jeanine Caceres MD [address] [place] [address] PCP - General Family Medicine 10/02/18 Radha Mckeon MD, [address] [place] [address] Physician Radiation Oncology 06/22/21 Jadiel Mendez MD [address] [facility] [address] [place] [address] Surgeon General Surgery 06/14/21 Rachid Moore, [address] [place] [address] Physician Hematology/Oncology 06/18/21 Corrine Blackmon RN Specialty Make Up Editor Oncology 07/05/21 Bess Grewal RN Personal Financial Representative 10/21/21 Top Trimmer Relationship Specialty Start Date End Date Jeanine Caceres MD [address] [place] [address] PCP - General Family Medicine 10/02/18 Radha Mckeon MD, [address] [place] [address] Physician Radiation Oncology 06/22/21 Jadiel Mendez MD [address] [facility] [address] [place] [address] Surgeon General Surgery 06/14/21 Rachid Moore, DO [address] [place] [address] Physician Hematology/Oncology 06/18/21 Corrine Blackmon RN Specialty Make Up Editor Oncology 07/05/21 Bess Grewal RN Personal Financial Representative 10/21/21 Top Trimmer Relationship Specialty Start Date End Date Jeanine Caceres MD [address] [place] [address] PCP - General Family Medicine 10/02/18 Radha Mckeon MD, [address] [place] [address] Physician Radiation Oncology 06/22/21 Jadiel Mendez MD [address] [facility] [address] [place] [address] Surgeon General Surgery 06/14/21 Rachid Moore, DO [address] [place] [address] Physician Hematology/Oncology 06/18/21 Corrine Blackmon RN Specialty Make Up Editor Oncology 07/05/21 Bess Grewal RN Personal Financial Representative 10/21/21 Top Trimmer Relationship Specialty Start Date End Date Jeanine Caceres MD [address] [place] [address] PCP - General Family Medicine 10/02/18 Radha Mckeon MD, [address] [place] [address] Physician Radiation Oncology 06/22/21 Jadiel Mendez MD [facility] [facility] [address] [place] [address] Surgeon General Surgery 06/14/21 Rachid Moore, DO [address] [place] [address] Physician Hematology/Oncology 06/18/21 Corrine Blackmon RN Specialty Make Up Editor Oncology 07/05/21 Bess Grewal RN Personal Financial Representative 10/21/21 Top Trimmer Relationship Specialty Start Date End Date Jeanine Caceers MD [address] [place] [address] PCP - General Family Medicine 10/02/18 Radha Mckeon MD, [address] [place] [address] Physician Radiation Oncology 06/22/21 Jadiel Mendez MD [address] [facility] [address] [place] [address] Surgeon General Surgery 06/14/21 Rachid Moore, DO [address] [place] [address] Physician Hematology/Oncology 06/18/21 Corrine Blackmon RN Specialty Make Up Editor Oncology 07/05/21 Bess Grewal RN Personal Financial Representative 10/21/21 Top Trimmer Relationship Specialty Start Date End Date Jeanine Caceres MD [address] [place] [address] PCP - General Family Medicine 10/02/18 Radha Mckeon MD, [address] [place] [address] Physician Radiation Oncology 06/22/21 Jadiel Mendez MD [address] [facility] [address] [place] [address] Surgeon General Surgery 06/14/21 Rachid Moore, DO [address] [place] [address] Physician Hematology/Oncology 06/18/21 Corrine Blackmon RN Specialty Make Up Editor Oncology 07/05/21 Bess Grewal, RN Personal Financial Representative 10/21/21 Top Trimmer Relationship Specialty Start Date End Date Jeanine Caceres MD [address] [place] [address] PCP - General Family Medicine 10/02/18 Radha Mckeon MD, [address] [place] [address] Physician Radiation Oncology 06/22/21 Jadiel Mendez MD [address] [facility] [address] [place] [address] Surgeon General Surgery 06/14/21 Rachid Moore, DO [address] [place] [address] Physician Hematology/Oncology 06/18/21 Corrine Blackmon RN Specialty Make Up Editor Oncology 07/05/21 Bess Grewal RN Personal Financial Representative 10/21/21 Top Trimmer Relationship Specialty Start Date End Date Jeanine Caceres MD [address] [place] [address] PCP - General Family Medicine 10/02/18 Radha Mckeon MD, [address] [place] [address] Physician Radiation Oncology 06/22/21 Jadiel Mendez MD [facility] [facility] [address] [place] [address] Surgeon General Surgery 06/14/21 Rachid Moore, DO [address] [place] [address] Physician Hematology/Oncology 06/18/21 Corrine Blackmon RN Specialty Make Up Editor Oncology 07/05/21 Bess Grewal, RN Personal Financial Representative 10/21/21 Top Trimmer Relationship Specialty Start Date End Date Jeanine Caceres MD [address] [place] [address] PCP - General Family Medicine 10/02/18 Radha Mckeon MD, [address] [place] [address] Physician Radiation Oncology 06/22/21 Jadiel Mendez MD [address] [facility] [address] [place] [address] Surgeon General Surgery 06/14/21 Rachid Moore, DO [address] [place] [address] Physician Hematology/Oncology 06/18/21 Corrine Blackmon RN Specialty Make Up Editor Oncology 07/05/21 Bess Grewal RN Personal Financial Representative 10/21/21 Top Trimmer Relationship Specialty Start Date End Date Jeanine Caceres MD [address] [place] [address] PCP - General Family Medicine 10/02/18 Radha Mckeon MD, [address] [place] [address] Physician Radiation Oncology 06/22/21 Jadiel Mendez MD [address] [facility] [address] [place] [address] Surgeon General Surgery 06/14/21 Rachid Moore, DO [address] [place] [address] Physician Hematology/Oncology 06/18/21 Corrine Blackmon RN Specialty Make Up Editor Oncology 07/05/21 Bess Grewal, RN Personal Financial Representative 10/21/21 Top Trimmer Relationship Specialty Start Date End Date Jeanine Caceres MD [address] [place] [address] PCP - General Family Medicine 10/02/18 Radha Mckeon MD, [address] [place] [address] Physician Radiation Oncology 06/22/21 Jadiel Mendez MD [address] [facility] [address] [place] [address] Surgeon General Surgery 06/14/21 Rachid Moore, DO [address] [place] [address] Physician Hematology/Oncology 06/18/21 Corrine Blackmon RN Specialty Make Up Editor Oncology 07/05/21 Bess Grewal RN Personal Financial Representative 10/21/21 Top Trimmer Relationship Specialty Start Date End Date Jeanine Caceres MD [address] [place] [address] PCP - General Family Medicine 10/02/18 Radha Mckeon MD, [address] [place] [address] Physician Radiation Oncology 06/22/21 Jadiel Mendez MD [address] [facility] [address] [place] [address] Surgeon General Surgery 06/14/21 Rachid Moore DO [address] [place] [address] Physician Hematology/Oncology 06/18/21 Corrine Blackmon RN Specialty Make Up Editor Oncology 07/05/21 Bess Grewal, RN Personal Financial Representative 10/21/21 Top Trimmer Relationship Specialty Start Date End Date Jeanine Caceres MD [address] [place] [address] PCP - General Family Medicine 10/02/18 Radha Mckeon MD, [address] [place] [address] Physician Radiation Oncology 06/22/21 Jadiel Mendez MD [address] [facility] [address] [place] [address] Surgeon General Surgery 06/14/21 Rachid Moore, DO [address] [place] [address] Physician Hematology/Oncology 06/18/21 Corrine Blackmon RN Specialty Make Up Editor Oncology 07/05/21 Bess Grewal RN Personal Financial Representative 10/21/21 Top Trimmer Relationship Specialty Start Date End Date Jeanine Caceres MD [address] [place] [address] PCP - General Family Medicine 10/02/18 Radha Mckeon MD, MD [address] [place] [address] Physician Radiation Oncology 06/22/21 Jadiel Mendez MD [address] [facility] [address] [place] [address] Surgeon General Surgery 06/14/21 Rachid Moore DO [address] [place] [address] Physician Hematology/Oncology 06/18/21 Corrine Blackmon RN Specialty Make Up Editor Oncology 07/05/21 Bess Grewal, RN Personal Financial Representative 10/21/21 Top Trimmer Relationship Specialty Start Date End Date Jeanine Caceres MD [address] [place] [address] PCP - General Family Medicine 10/02/18 Radha Mckeon MD, [address] [place] [address] Physician Radiation Oncology 06/22/21 Jadiel Mendez MD [address] [facility] [address] [place] [address] Surgeon General Surgery 06/14/21 Rachid Moore DO [address] [place] [address] Physician Hematology/Oncology 06/18/21 Corrine Blackmon RN Specialty Make Up Editor Oncology 07/05/21 Bess Grewal RN Personal Financial Representative 10/21/21 Top Trimmer Relationship Specialty Start Date End Date Jeanine Caceres MD [address] [place] [address] PCP - General Family Medicine 10/02/18 Radha Mckeon MD, MD [address] [place] [address] Physician Radiation Oncology 06/22/21 Jadiel Mendez MD [address] [facility] [address] [place] [address] Surgeon General Surgery 06/14/21 Rachid Moore, DO [address] [facility] [place] [address] Physician Hematology/Oncology 06/18/21 Corrine Blackmon, RN Specialty Make Up Editor Oncology 07/05/21 Bess Grewal, JOSE Personal Financial Representative 10/21/21 Team Status: Active Member Role Status Dates Dr. Luis Eduardo Caceres MD Family Provider Active Dr. Jeanine Caceres MD Primary Care Provider Active Team Status: Inactive Member Role Status Dates Dr. Jeanine Caceres MD Primary Care Provider, Referring P rovider Active Dr. Harmony Agosto MD Attending Provider Active Team Status: Active Member Role Status Dates Dr. Jeanine Caceres MD Primary Care Provider Active Dr. Harmony Agosto MD Attending Pr ovider, Referring Provider, Other Provider Active Dr. Jeanine Gonzalez MD Other Provider Active Team Status: Inactive Member Role Status Dates Dr. Jeanine Caceres MD Primary Care Provider Active Dr. Harmony Agosto MD Attending Provider, Referr ing Provider Active Dr. Jeanine Gonzalez MD Other Provider Active Team Status: Inactive Member Role Status Dates Dr. Jeanine Caceres MD Primary Care Provider Active Dr. Harmony Agosto MD Attending Provider, Referr ing Provider Active Top Trimmer Relationship Specialty Start Date End Date Jeanine Caceres MD [address] [facility] [address] PCP - General Family Medicine 10/02/18 Radha Mckeon MD, [address] [place] [address] Physician Radiation Oncology 06/22/21 Jadiel Mendez MD [address] [facility] [address] [place], [place] [address] Surgeon General Surgery 06/14/21 Rachid Moore, DO [address] [place] [address] Physician Hematology/Oncology 06/18/21 Corrine Blackmon RN Specialty Make Up Editor Oncology 07/05/21 Bess Grewal RN Personal Financial Representative 10/21/21 Top Trimmer Relationship Specialty Start Date End Date Jeanine Caceres MD [address] [place] [address] PCP - General Family Medicine 10/02/18 Radha Mckeon MD, [address] [place] [address] Physician Radiation Oncology 06/22/21 Jadiel Mendez MD [address] [facility] [address] [place] [address] Surgeon General Surgery 06/14/21 Rachid Moore, DO [address] [place] [address] Physician Hematology/Oncology 06/18/21 Corrine Blackmon RN Specialty Make Up Editor Oncology 07/05/21 Bess Grewal RN Personal Financial Representative 10/21/21 Top Trimmer Relationship Specialty Start Date End Date Jeanine Caceres MD [address] [place] [address] PCP - General Family Medicine 10/02/18 Radha Mckeon MD, [address] [place] [address] Physician Radiation Oncology 06/22/21 Jadiel Mendez MD [address] [facility] [address] [place] [address] Surgeon General Surgery 06/14/21 Rachid Moore, DO [address] [place] [address] Physician Hematology/Oncology 06/18/21 Corrine Blackmon RN Specialty Make Up Editor Oncology 07/05/21 Bess Grewal RN Personal Financial Representative 10/21/21 Top Trimmer Relationship Specialty Start Date End Date Jeanine Caceres MD [address] [place] [address] PCP - General Family Medicine 10/02/18 Radha Mckeon MD, [address] [place] [address] Physician Radiation Oncology 06/22/21 Jadiel Mendez MD [address] [facility] [address] [place] [address] Surgeon General Surgery 06/14/21 Rachid Moore, DO [address] [place] [address] Physician Hematology/Oncology 06/18/21 Corrine Blackmon RN Specialty Make Up Editor Oncology 07/05/21 Bess Grewal RN Personal Financial Representative 10/21/21 Top Trimmer Relationship Specialty Start Date End Date Jeanine Caceres MD [address] [place] [address] PCP - General Family Medicine 10/02/18 Radha Mckeon MD, [address] [place] [address] Physician Radiation Oncology 06/22/21 Jadiel Mendez MD [address] [facility] [address] [place] [address] Surgeon General Surgery 06/14/21 Rachid Moore, DO [address] [place] [address] Physician Hematology/Oncology 06/18/21 Corrine Blackmon RN Specialty Make Up Editor Oncology 07/05/21 Bess Grewal RN Personal Financial Representative 10/21/21 Top Trimmer Relationship Specialty Start Date End Date Jeanine Caceres MD [address] [place] [address] PCP - General Family Medicine 10/02/18 Radha Mckeon MD, [address] [place] [address] Physician Radiation Oncology 06/22/21 Jadiel Mendez MD [address] [facility] [address] [place] [address] Surgeon General Surgery 06/14/21 Rachid Moore DO [address] [place] [address] Physician Hematology/Oncology 06/18/21 Corrine Blackmon RN Specialty Make Up Editor Oncology 07/05/21 Bess Grewal RN Personal Financial Representative 10/21/21 Top Trimmer Relationship Specialty Start Date End Date Jeanine Caceres MD [address] [place] [address] PCP - General Family Medicine 10/02/18 Radha Mckeon MD, [address] [place] [address] Physician Radiation Oncology 06/22/21 Jadiel Mendez MD [address] [facility] [address] [place] [address] Surgeon General Surgery 06/14/21 Rachid Moore DO [address] [place] [address] Physician Hematology/Oncology 06/18/21 Corrine Blackmon RN Specialty Make Up Editor Oncology 07/05/21 Bess Grewal RN Personal Financial Representative 10/21/21 Top Trimmer Relationship Specialty Start Date End Date Jeanine Caceres MD [address] [place] [address] PCP - General Family Medicine 10/02/18 Radha Mckeon MD, [address] [place] [address] Physician Radiation Oncology 06/22/21 Jadiel Mendez MD [address] [place] [address] Surgeon General Surgery 06/14/21 Rachid Moore DO [address] [place] [address] Physician Hematology/Oncology 06/18/21 Corrine Blackmon RN Specialty Make Up Editor Oncology 07/05/21 Bess Grewal RN Personal Financial Representative 10/21/21 Top Trimmer Relationship Specialty Start Date End Date Jeanine Caceres MD [address] [place] [address] PCP - General Family Medicine 10/02/18 Radha Mckeon MD, [address] [place] [address] Physician Radiation Oncology 06/22/21 Jadiel Mendez MD [address] [place] [address] Surgeon General Surgery 06/14/21 Rachid Moore DO [address] [place] [address] Physician Hematology/Oncology 06/18/21 Corrine Blackmon RN Specialty Make Up Editor Oncology 07/05/21 Bess Grewal, JOSE Personal Financial Representative 10/21/21 Team Status: Inactive Member Role Status Dates Dr. Jeanine Caceres MD Primary Care Provider Active Dr. Lois George DO Emergency Provider Active Top Trimmer Relationship Specialty Start Date End Date Jeanine Caceres MD [address] [place] [address] PCP - General Family Medicine 10/02/18 Radha Mckeon MD, MD [address] [place] [address] Physician Radiation Oncology 06/22/21 Jadiel Mendez MD [address] [place] [address] Surgeon General Surgery 06/14/21 Rachid Moore DO [address] [place] [address] Physician Hematology/Oncology 06/18/21 Corrine Blcakmon RN Specialty Make Up Editor Oncology 07/05/21 Bess Grewal, JOSE Personal Financial Representative 10/21/21 Top Trimmer Relationship Specialty Start Date End Date Jeanine Caceres MD [address] [place] [address] PCP - General Family Medicine 10/02/18 Radha Mckeon MD [address] [place] [address] Physician Radiation Oncology 06/22/21 Jadiel Mendez MD [address] [place] [address] Surgeon General Surgery 06/14/21 Rachid Moore DO [address] [place] [address] Physician Hematology/Oncology 06/18/21 Corrine Blackmon RN Specialty Make Up Editor Oncology 07/05/21 Bess Grewal, RN Personal Financial Representative 10/21/21 Top Trimmer Relationship Specialty Start Date End Date Jeanine Caceres MD [address] [place] [address] PCP - General Family Medicine 10/02/18 Radha Mckeon MD [address] [place] [address] Physician Radiation Oncology 06/22/21 Jadiel Mendez MD [address] [facility] [address] [place] [address] Surgeon General Surgery 06/14/21 Rachid Moore DO [address] [place] [address] Physician Hematology/Oncology 06/18/21 Corrine Blackmon RN Specialty Make Up Editor Oncology 07/05/21 Bess Grewal, JOSE Personal Financial Representative 10/21/21 Top Trimmer Relationship Specialty Start Date End Date Jeanine Caceres MD [address] [place] [address] PCP - General Family Medicine 10/02/18 Radha Mckeon MD [address] [place] [address] Physician Radiation Oncology 06/22/21 Jadiel Mendez MD [address] [place] [address] Surgeon General Surgery 06/14/21 Rachid Moore DO [address] [place] [address] Physician Hematology/Oncology 06/18/21 Corrine Blackmon RN Specialty Make Up Editor Oncology 07/05/21 Bess Grewal, JOSE Personal Financial Representative 10/21/21 Top Trimmer Relationship Specialty Start Date End Date Jeanine Caceres MD [address] [place] [address] PCP - General Family Medicine 10/02/18 Radha Mckeon MD [address] [place] [address] Physician Radiation Oncology 06/22/21 Jadiel Mendez MD [address] [facility] [address] [place] [address] Surgeon General Surgery 06/14/21 Rachid Moore DO [address] [place] [address] Physician Hematology/Oncology 06/18/21 Corrine Blackmon RN Specialty Make Up Editor Oncology 07/05/21 Bess Grewal, JOSE Personal Financial Representative 10/21/21 Top Trimmer Relationship Specialty Start Date End Date Jeanine Caceres MD [address] [place] [address] PCP - General Family Medicine 10/02/18 Radha Mckeon MD [address] [place] [address] Physician Radiation Oncology 06/22/21 Jadiel Mendez MD [address] [facility] [address] [place] [address] Surgeon General Surgery 06/14/21 Rachid Moore DO [address] [place] [address] Physician Hematology/Oncology 06/18/21 Corrine Blackmon RN Specialty Make Up Editor Oncology 07/05/21 Bess Grewal RN Personal Financial Representative 10/21/21 Top Trimmer Relationship Specialty Start Date End Date Jeanine Caceres MD [address] [place] [address] PCP - General Family Medicine 10/02/18 Radha Mckeon MD [address] [place] [address] Physician Radiation Oncology 06/22/21 Jadiel Mendez MD [address] [facility] [address] [place] [address] Surgeon General Surgery 06/14/21 Rachid Moore DO [address] [place] [address] Physician Hematology/Oncology 06/18/21 Corrine Blackmon RN Specialty Make Up Editor Oncology 07/05/21 Bess Grewal RN Personal Financial Representative 10/21/21 Top Trimmer Relationship Specialty Start Date End Date Jeanine Caceres MD [address] [place] [address] PCP - General Family Medicine 10/02/18 Radha Mckeon MD [address] [place] [address] Physician Radiation Oncology 06/22/21 Jadiel Mendez MD [address] [place] [address] Surgeon General Surgery 06/14/21 Rachid Moore DO [address] [place] [address] Physician Hematology/Oncology 06/18/21 Corrine Blackmon, RN Specialty Make Up Editor Oncology 07/05/21 Bess Grewal, JOSE Personal Financial Representative 10/21/21 Goals (unrecognized section and content) Goals may be documented in a n alternate sectionGoals may be documented in an alternate section INFORMATION SOURCE (unrecogn ized section and content) DATE CREATED AUTHOR 04/30/2022 [facility] DATE CREATED AUTHOR AUTHOR'S ORGANIZ ATION 07/30/2024 [facility] DATE CREATED AUTHOR AUTHOR'S ORGANIZ ATION 02/16/2025 [facility] Inactive Administered Medications - up to 3 most recent administrations Administered Medications (un recognized section and content) Medication Order MAR Action Action Date Dose Rate Site zoledronic ky-[id number]-0.9NaCl 4 mg iv piggyback 100 mL (ZOMETA) 4 mg, INTRAVENOUS, Administer over 15 Minutes, ONCE, 1 dose, On Mon08/25/23 at 1530, Hazardous Potential Reproductive Risk Drug: Use appropriate PPE. New Bag/Syringe/Bottle 08/25/2023 3:06 PM EDT 4 mg FOR RECORDS PERTAINING TO PATIENTS WHO ARE OR HAVE BEEN ENROLLED IN A CHEMICAL DEPENDENCY/SUBSTANCEABUSE PROGRAM, SOME INFORMATION MAY BE OMITTED. This clinical summary was aggregated from multiple sources. Caution should be exercised in using it in the provision of clinical care. This summary normalizes information from multiple sources, and as a consequence, information in this document may materially change the coding, format and clinical context of patient data. In addition, data may be omitted in some cases. CLINICAL DECISIONS SHOULD BE BASED ON THE PRIMARY CLINICAL RECORDS. [facility] provides no warranty or guarantee of the accuracy or completeness of information in this document.
[2025-04-04 20:04] LABS: Hematocrit 39.5 % (37-47); Hemoglobin 13.1 g/dL (12.0-15.0); Immature Granulocytes Count 0.030 X10^3/uL (0.0-0.0); Mean Corp Hgb Conc 33.2 g/dL (32-36); Mean Corpuscular Volume 87.6 fL (81-99); Mean Platelet Vol. 8.9 fl (6.2-12.0); NRBC Flagged by Analyzer 0 % (0-5); Platelet Count 329 K/mm3 (150-450); RBC Distribution Width CV 12.2 % (11.6-14.6); RBC Distribution Width SD 39.3 fl (35.1-43.9); Red Blood Count 4.51 M/mm3 (4.2-5.4); White Blood Count 10.8 K/mm3 (4.4-11.0)
[2025-04-04 20:22] LABS: AST(SGOT) 22 U/L (<=31); Alanine Aminotransfer ALT/SGPT 24 U/L (<=34); Albumin, Serum 4.2 g/dL (3.5-5.0); Alkaline Phosphatase 56 U/L (35-104); Anion Gap 10 (5-15); BUN 15 mg/dL (4-19); BUN/Creat Ratio 24.1 RATIO (10-20); Calcium,Total 9.5 mg/dL (7.6-11.0); Carbon Dioxide 26.7 mmol/L (21.0-32.0); Chloride 104 mmol/L (98-108); Estimated Creatinine Clearance 136.38 ml/min (50-250); Globulin 3.1 g/dL (2.2-4.2); Glucose 110 mg/dL (70-99); Potassium 3.7 mmol/L (3.3-5.1)
[2025-04-04 20:23] VITALS: BP 102/80; PULSE 78; RESP 23; O2SAT 97
[2025-04-04 21:00] VITALS: BP 116/78; PULSE 72; RESP 16; O2SAT 95
[2025-04-04 22:21] VITALS: BP 111/64; PULSE 76; RESP 16; TEMP 36.4; O2SAT 98
== END 2025-04-04 22:21 | disposition home or self-care (01) ==
PROVIDERS: Emergency Provider Emergency Medicine; PCP Family Medicine; Visit Provider Emergency Medicine
DX: R07.89 Other chest pain (principal); Z85.3 Personal history of malignant neoplasm of breast; Z90.722 Acquired absence of ovaries, bilateral; Z90.49 Acquired absence of other specified parts of digestive tract; Z90.13 Acquired absence of bilateral breasts and nipples
CPT/HCPCS: 71275; 80053; 85025; 93005; 99284; Q9967; A4216